=== PATIENT | female | born 1950 | race Caucasian/White ===

== ENCOUNTER 2023-08-20 09:39 | Outpatient (OUT) | payer OTHER, SELFPAY ==
[2023-08-20 10:02] LABS: Hematocrit 47.4 % (36.0-48.0); Hemoglobin 14.8 g/dL (12.0-16.0); Mean Corpuscular HGB Conc 31.2 g/dL (29.9-35.2); Mean Corpuscular Hemoglobin 27.3 pg (26.7-34.0); Mean Corpuscular Volume 87.3 fL (81.0-99.0); Platelet Count 222 10^3/uL (150-450); Red Blood Count 5.43 10^6/uL (4.20-5.40); Red Cell Distribution Width 14.8 % (11.0-15.0); White Blood Count 6.7 10^3/uL (4.0-11.0)
[2023-08-20 10:21] LABS: Bilirubin Urine NEGATIVE (NEGATIVE); Blood Urine TRACE-I (NEGATIVE); Clarity Urine CLEAR (CLEAR); Color Urine LT. YELLOW (YELLOW); Glucose Urine UA >=1000 mg/dL (NEGATIVE); Ketones Urine NEGATIVE (NEGATIVE); Leukocyte Esterase Urine SMALL (NEGATIVE); Nitrite Urine NEGATIVE (NEGATIVE); Protein Urine NEGATIVE (NEG/TRACE); Urobilinogen Urine 0.2 EU/dL (0.2-1.0)
[2023-08-20 10:36] LABS: Bacteria Urine MODERATE #/HPF (NONE SEEN); Cast Seen? NONE SEEN #/LPF (NONE SEEN); Crystals Seen? None Seen #/HPF (None Seen); Mucus Urine NONE SEEN (NONE SEEN); Squamous Epithelial Cell Urine MODERATE #/LPF (NONE/RARE)
[2023-08-20 10:40] LABS: Albumin Level 3.8 g/dL (3.4-5.0); Anion Gap 10.4; BUN Creatinine Ratio 21.7; Calcium 9.1 mg/dL (8.5-10.1); Carbon Dioxide 30.4 mmol/L (21.0-32.0); Chloride 98 mmol/L (98-107); Estimated GFR (African America >60 (>=60); Estimated GFR (Non-African Ame >60 (>=60); Glucose 168 mg/dL (74-106); Magnesium 2.1 mg/dL (1.8-2.4); Potassium 3.8 mmol/L (3.5-5.1); Sodium 135 mmol/L (136-145); Uric Acid 5.2 mg/dL (2.6-6.0)
[2023-08-20 11:03] LABS: Protein Creatinine Ratio Urine 0.16; Total Protein Urine Random 12.8 mg/dL (<=11.9)
[2023-08-21 14:10] LABS: PTH, Intact 29 pg/mL (15-65)
== END 2023-08-20 09:40 | disposition home or self-care (01) ==
LOC: LAB 09:43
PROVIDERS: PCP Family Medicine; Visit Provider Internal Medicine
DX: E11.22 Type 2 diabetes mellitus with diabetic chronic kidney disease (principal); N18.30 Chronic kidney disease, stage 3 unspecified; I12.9 Hypertensive chronic kidney disease with stage 1 through stage 4 chronic kidney disease, or unspecified chronic kidney disease; E55.9 Vitamin D deficiency, unspecified; R31.9 Hematuria, unspecified; E79.0 Hyperuricemia without signs of inflammatory arthritis and tophaceous disease
CPT/HCPCS: 36415; 80069; 81001; 82306; 82570; 83735; 83970; 84156; 84550; 85027

== ENCOUNTER 2024-02-07 09:21 | Outpatient (OUT) | payer OTHER, SELFPAY ==
--- OUTSIDE RECORDS SUMMARY | 2024-02-07 09:45 | XMS_ITS | CCD ---
Author Organization [facility] Care Team Providers Care Route Returner Name Role Phone Ronald, Julien Unavailable Jignesh Sargent Unavailable MD Wendy Chinchilla Primary Care Provider [phone] MD Jignesh Sargent Attending Provider [phone] RONALD, JULIEN Attending Unavailable RONALD, JULIEN Consulting Unavailable RONALD, JULIEN Admitting Unavailable RENÉE, DR THOMPSON Primary Care Unavailable JIGNESH SARGENT Consulting Unavailable RENÉE, DR THOMPSON Primary Care Unavailable MISC, DR FOWLER Attending Unavailable MISC, DR FOWLER Admitting Unavailable RONALD, JULIEN Attending Unavailable RONALD, JULIEN Consulting Unavailable RONALD, JULIEN Admitting Unavailable RENÉE, DR THOMPSON Primary Care Unavailable Unavailable Primary Care Provider UnavailWendy Monae MD Unavailable Wendy Chinchilla MD Primary Care Provider ISRAEL LOPEZ Attending Unavailable ELICIA REDD Referring Unavailable ELICIA REDD Attending Unavailable ESTER BLANCA Attending Unavailable ELICIA REDD Referring Unavailable REBECA HERRERA Attending Unavailable REBECA HERRERA Referring Unavailable JOHN HIGGINS Attending Unavailable JOHN HIGGINS Referring Unavailable JOHN HIGGINS Referring Unavailable MORENA GILLIS Attending Unavailable JOHN HIGGINS Referring Unavailable JACKY CLINE Attending Unavailable JOHN HIGGINS Referring Unavailable VAISHALI HENDRICKS Attending Unavailable JOHN HIGGINS Referring Unavailable JACKY CLINE Attending Unavailable JOHN HIGGINS Referring Unavailable JACKY CLINE Attending Unavailable JOHN HIGGINS Referring Unavailable JACKY CLINE Attending Unavailable JOHN HIGGINS Referring Unavailable INNA KOO Attending Unavailable JACKY CLINE Attending Unavailable SIERRA BLANCA, JOHN العلي Referring Unavailable JACKY CLINE Attending Unavailable KEATON, JOHN العلي Referring Unavailable JACKY CLINE Attending Unavailable KEATON, JOHN العلي Referring Unavailable JACKY CLINE Attending Unavailable JOHN HIGGINS Referring Unavailable MORENA GILLIS Attending Unavailable KEATON, JOHN العلي Referring Unavailable JOHN HIGGINS Attending Unavailable WENDY CHINCHILLA Attending Unavailable WENDY CHINCHILLA Attending Unavailable INNA KOO Attending Unavailable MD Wendy Tomlinson Primary Care Pr ovider YAQUELIN Hernandez Attending Provider Fibroscan, Temporary Attending Provider Unavaila Wendy Bustillo Primary Care Un available Mt Hernandez Admitting Unavailable Mt Hernandez Attending Wendy Taylor Primary Care Un available Mt Hernandez Admitting Unavailable Mt Hernandez Attending Unavailable Allergies Allergy Classification Reported Allergen(s) Allergy Type Date of Onset Reaction(s) Facility (5 sources) Wound Dressing Adhesive Drug Intolerance 7 Rash [facility] Medications Current Medications Medication Drug Class(es) Dates Sig (Normalized) Sig (Original) amoxicillin 500 mg oral tablet (5 sources) Penicillin-class Antibacterial Start: 10-09-2023 take 4 tablets by mouth once at mealtime amoxicillin (Amoxil) 500 MG tablet Indications: History of joint replacement, unspecified joint 4 tabs PO once 30-60 mins before procedure with food 4 tablet 3 10/09/2023 Active aspirin 81 mg chewable tablet (7 sources) Platelet Aggregation Inhibitor, Nonsteroidal Anti-inflammatory Drug take 1 tablet by mouth every twenty-four hours Aspirin 81 MG 1 tablet Orally Once a day Active atorvastatin 10 mg oral tablet (10 sources) HMG-CoA Reductase Inhibitor Start: 11-12-2023 take 1 tablet by mouth once daily atorvastatin (Lipitor) 10 MG tablet Indications: Mixed hyperlipidemia (CMS/HCC) take 1 tablet by mouth once daily 100 tablet 1 11/12/2023 Active Start: 10-17-2022 atorvastatin ( Lipitor) 10 MG tablet take 1 tablet by sunni th every twenty-four hours Atorvastatin Calcium 10 MG 1 tablet Orally Once a day Active Comment on above: Take by mouth every 24 hours. Blood Glucose Monitoring Suppl ([employer]zeuch Verio Reflect) w/Device kit (5 sources) Start: 3 Blood Glucose Monitoring Suppl ([employer] Verio Reflect) w/Device kit 24 hr buPROPion hydrochloride 150 mg extended release oral tablet (1 source) Aminoketone take 1 tablet by mouth every twenty-four hours buPROPion HCl ER (XL) 150 MG 1 tablet in the morning Orally Once a day Active Calcium 4380-0225 MG-UNIT (4 sources) take 1 tablet by mouth once daily Calcium 8330-0774 MG-UNIT 1 tablet Orally Once a day Active calcium carbonate 1500 mg oral tablet (5 sources) calcium carbonat e 1500 (600 Ca) MG tablet every 12 (twelve) hours. 0 Active citalopram 20 mg oral tablet (3 sources) Serotonin Reuptake Inhibitor take 1 tablet by mouth every twenty-four hours Citalopram Hydrobromide 20 MG 1 tablet Orally Once a day Active Cranberry preparation (15 sources) Non-Standardized Food Allergenic Extract, Non-Standardized Plant Allergenic Extract Cranberry 425 MG capsule take 1 capsule by mouth once martín ly Cranberry 1000 MG 1 CAPSULE Orally once a day Active Cranberry 400 mg cap Take 400 mg by mouth. 0 Active take 2 capsules by mouth once da yana Cranberry 425 MG 2 Capsule Orally once a day Active Comment on above: Take 400 mg by mouth . dapagliflozin 10 mg oral tablet (10 sources) Sodium-Glucose Cotransporter 2 Inhibitor Start: 11-20-19 24 take 1 tablet by mouth in the morning dapagliflozin (Farxiga) 10 MG Indications: Type 2 diabetes mellitus without complication, without long-term current use of insulin (CMS/HCC) Take 1 tablet (10 mg) by mouth in the morning. 90 tablet 0 11/20/2023 Active Start: 05-02-2023 End: 11-21-2023 take 1 tablet by mouth in the morning dapagliflozin (Farxiga) 10 MG Indications: Type 2 diabetes mellitus without complication, without long-term current use of insulin (CMS/HCC) Take 1 tablet (10 mg) by mouth in the morning. 14 tablet 0 08/23/2023 11/19/2023 Discontinued (Reorder) fluconazole 150 mg oral tablet (5 sources) Azole Antifungal Start: 10-16-2023 fluconazole (Diflucan) 150 MG tablet furosemide 20 mg oral tablet (15 sources) Loop Diuretic Start: 07-26-2017 furosemide (Lasix) 20 MG tablet Indications: Primary hypertension (CMS/HCC) TAKE 1 TABLET ONCE DAILY 100 tablet 1 04/25/2023 Active Hair Skin & Nails Advanced - (1 source) Hair Skin & Nail s Advanced - as directed Orally Active C-Sawxnjmttwxx-Ejwi e-B12-B6 (Metanx) 3-90.314-2-35 MG capsule (5 sources) Start: 08-17-2023 F-Kyhbnvmapksc-Uhppa -B12-B6 (Metanx) 3-90.314-2-35 MG capsule Indications: Diabetic polyneuropathy associated with type 2 diabetes mellitus (CMS/HCC) TAKE 1 CAPSULE BY MOUTH TWO TIMES A DAY DIRECTED 180 capsule 3 08/17/2023 Active lisinopril 2.5 mg oral tablet (10 sources) Angiotensin Converting Enzyme Inhibitor Start: 08-14-2022 take 1 tablet by mouth every twenty-four hours Lisinopril 2.5 MG 1 tablet Orally Once a day for 90 days Aug, Active Metanx 3-90.314-2-35 MG (1 source) Metanx 3-90.314- 2-35 MG as directed Orally TWICE A DAY Active metFORMIN hydrochloride 500 mg oral tablet (12 sources) Biguanide Start: 10-19-2023 take 1 tablet by mouth in the morning metFORMIN (Glucophage) 500 MG tablet Indications: Type 2 diabetes mellitus with stage 2 chronic kidney disease, without long-term current use of insulin (CMS/HCC) Take 1 tablet (500 mg) by mouth in the morning and 1 tablet (500 mg) before bedtime. 180 tablet 0 10/19/2023 Active Start: 08-04-2023 metFORMIN (GLU COPHAGE) 500 mg tablet 24 hr metoprolol succinate 25 mg extended release oral tablet (7 sources) beta-Adrenergic Sarmad take 1 tablet by mouth every twenty-four hours Metoprolol Succinate ER 25 MG 1 tablet Orally Once a day Active Multiple Vitamins-Minerals (Womens Multi Vitamin & Mineral) tablet (5 sources) Multiple Vitamins-Minerals (Womens Multi Vitamin & Mineral) tablet Multivitamin preparation (6 sources) Multivitamin - Orally Active [place] 3 (4 sources) [place] 3 Active 24 hr oxybutynin chloride 15 mg extended release oral tablet (9 sources) Cholinergic Muscarinic Antagonist Start: 023 take 1 tablet by mouth once daily oxybutynin XL (Ditropan-XL) 15 MG 24 hr tablet Indications: Urgency of urination Take 1 tablet by mouth once a day 90 tablet 3 08/21/2023 Active Start: 08-04-2023 oxybutynin ER (DITROPAN XL) 10 mg 24 hr tablet take 1 tablet by sunni th every twenty-four hours oxyBUTYnin Chloride ER 10 MG 1 tablet Orally Once a day Active triamcinolone acetonide 0.001 mg/mg oral paste (1 source) Corticosteroid Start: 08-10-2023 End: 08-24-2023 triamcinolone (KENALOG IN ORABASE) 0.1 % paste 1 Application by DENTAL route two times a day for 14 days. 5 g 1 08/10/2023 08/24/2023 Active Comment on above: 1 Application by DEN VAL route two times a day for 14 days. Vitamin E 400 UNIT (6 sources) take 1 capsule by mouth once daily Vitamin E 400 UNIT 1 capsule Orally Once a day Active Womens Multivitamin - (4 sources) Womens Multivitamin - as directed Orally Active Completed/Discontinued Medications Medication Drug Class(es) Dates Sig (Normalized) Sig (Original) calcium citrate 250 mg / ergocalciferol 100 mg oral tablet (2 sources) Provitamin D2 Compound take 1 tablet by mouth once daily in the morning Calcium Citrate-Vitamin D2 250 mg-2.5 mcg (100 unit) tab Take 1 tablet by mouth every morning. 0 Active Comment on above: Take 1 tablet by sunni th every morning. Docosahexaenoate (2 sources) DOCOSAHEXAENOIC ACID ORAL Take by mouth as directed. 0 Active Comment on above: Take by mouth as dir ected. fluticasone propionate 0.05 mg/actuat metered dose nasal spray (8 sources) Corticosteroid Start: 11-04-2022 fluticasone (FLONASE) 50 mcg/actuation nasal spray 1 (one) time each day at the same time. 0 11/04/2022 Active fluticasone (Bigg nase) 50 MCG/ACT nasal spray 1 (one) time each day at the same time. 0 Active take 1 spray(s) nasal route once daily Flonase Allergy Relief 50 MCG/ACT 1 spray in each nostril Nasally Once a day Active Comment on above: 1 (one) time each da y at the same time. HAIR, SKIN AND NAILS, BIOTIN, ORAL (2 sources) HAIR, SKIN AND N AILS, BIOTIN, ORAL Take by mouth as directed. 0 Active Comment on above: Take by mouth as dir ected. mormrgnlp-[id number]-nnW06-algal oil (METANX, ALGAL OIL,) 3 mg-35 mg-2 mg -90.314 mg cap (2 sources) ohzhjwkhj-I6-jxH 12-alga l oil (METANX, ALGAL OIL,) 3 mg-35 mg-2 mg -90.314 mg cap Take by mouth as directed. 0 Active Comment on above: Take by mouth as dir ected. levothyroxine sodium 0.1 mg oral tablet (15 sources) l-Thyroxine Start: 07-13-2023 SYNTHROID 100 mcg tablet take 1 tablet by sunni th every twenty-four hours Levothyroxine Sodium 100 MCG 1 tablet Orally Once a day Active meloxicam 15 mg oral tablet (4 sources) Nonsteroidal Anti-inflammatory Drug take 1 tablet by mouth once daily as needed Meloxicam 15 MG 1 tablet Orally Once a day PRN ONLY Not-Taking Multivitamin capsule (2 sources) take 1 capsule by mouth once daily in the morning Multivitamin capsule Take 1 capsule by mouth every morning. 0 Active Comment on above: Take 1 capsule by mo uth every morning. Problems Active Problems Problem Classification Problem Date Documented Date Episodic/Chronic Adjustment disorders (5 sources) Grief finding; Translations: [Adjustment disorder with depressed mood] Onset: 3 04-27-2023 Chronic Anxiety disorders (5 sources) Anxiety; Translations: [Anxiety disorder, unspecified] Onset: 3 04-27-2023 Chronic Chronic kidney disease (20 sources) Chronic kidney disease stage 3; Translations: [Chronic kidney disease, stage 3 (moderate)] Onset: 1 Resolved: 1 Chronic Coronary atherosclerosis and other heart disease (5 sources) Atypical angina; Translations: [Atypical angina] Onset: 3 04-27-2023 Chronic Diabetes mellitus with complications (20 sources) Type 2 diabetes mellitus well controlled; Translations: [Type 2 diabetes mellitus with hyperglycemia] Onset: 3 Chronic Diabetes mellitus without complication (8 sources) Type 2 diabetes mellitus; Translations: [Type 2 diabetes mellitus without complications] Onset: 3 08-10-2023 Chronic Diseases of mouth; excluding dental (2 sources) Oral lesion; Translations: [Unspecified lesions of oral mucosa] Onset: 4 08-10-2023 Episodic Disorders of lipid metabolism (7 sources) Mixed hyperlipidemia; Translations: [Mixed hyperlipidemia] Onset: 3 08-10-2023 Chronic Esophageal disorders (10 sources) Gastroesophageal reflux disease without esophagitis; Translations: [Gastro-esophageal reflux disease without esophagitis] Onset: 3 04-27-2023 Chronic Essential hypertension (7 sources) Hypertensive disorder; Translations: [Essential (primary) hypertension] Onset: 3 08-10-2023 Chronic Genitourinary symptoms and ill-defined conditions (13 sources) Urinary incontinence; Translations: [Unspecified urinary incontinence] Onset: 3 04-27-2023 Chronic Hepatitis (6 sources) Nonalcoholic steatohepatitis; Translations: [Nonalcoholic steatohepatitis (CABELLO)] Onset: 4 Chronic Hypertension with complications and secondary hypertension (20 sources) Chronic kidney disease due to hypertension; Translations: [Hypertensive chronic kidney disease with stage 1 through stage 4 chronic kidney disease, or unspecified chronic kidney disease] Onset: 1 Resolved: 2 Chronic Menopausal disorders (15 sources) Disorder associated with menstruation AND/OR menopause; Translations: [Unspecified menopausal and perimenopausal disorder] Onset: 3 04-27-2023 Chronic Mood disorders (5 sources) Mild major depression, single episode; Translations: [Major depressive disorder, single episode, mild] Onset: 3 04-27-2023 Chronic Nutritional deficiencies (18 sources) Vitamin D deficiency; Translations: [Vitamin D deficiency, unspecified] Onset: 1 Resolved: 2 Chronic Osteoarthritis (5 sources) Osteoarthritis of knee; Translations: [Osteoarthritis of knee, unspecified] Onset: 3 04-27-2023 Chronic Other acquired deformities (5 sources) Joint contracture of the ankle and foot; Translations: [Contracture, unspecified ankle] Onset: 3 05-03-2023 Chronic Other connective tissue disease (5 sources) Artificial knee joint present; Translations: [Presence of left artificial knee joint] Onset: 3 04-27-2023 Chronic Other connective tissue disease (5 sources) History of total knee arthroplasty; Translations: [Presence of right artificial knee joint] Onset: 3 04-27-2023 Chronic Other diseases of bladder and urethra (7 sources) Overactive bladder; Translations: [Overactive bladder] Onset: 3 08-10-2023 Chronic Other diseases of kidney and ureters (7 sources) Secondary hyperparathyroidism; Translations: [Secondary hyperparathyroidism of renal origin] Chronic Other diseases of kidney and ureters (1 source) Secondary hyperparathyroidism of renal origin Onset: 2 Resolved: 2 Chronic Other ear and sense organ disorders (2 sources) Hearing loss; Translations: [Other specified hearing loss, unspecified ear] 06-14-2023 Chronic Other ear and sense organ disorders (3 sources) 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; Translations: [Sensorineural hearing loss, bilateral] Onset: 3 08-10-2023 Chronic Other ear and sense organ disorders (5 sources) Chronic non-infective otitis externa; Translations: [Other otitis externa, bilateral] Onset: 3 04-27-2023 Chronic Other ear and sense organ disorders (5 sources) Decreased hearing ; Translations: [Unspecified hearing loss, bilateral] Onset: 3 04-27-2023 Chronic Other ear and sense organ disorders (5 sources) Sensorineural hearing loss, bilateral; Translations: [Sensorineural hearing loss, bilateral] Onset: 3 04-27-2023 Chronic Other liver diseases (7 sources) Steatosis of liver; Translations: [Fatty (change of) liver, not elsewhere classified] Onset: 3 04-27-2023 Chronic Other liver diseases (2 sources) Fatty (change of) liver, not elsewhere classified; Translations: [Fatty (change of) liver, not elsewhere classified] Onset: 4 Chronic Other nervous system disorders (5 sources) Carpal tunnel syndrome of left wrist; Translations: [Carpal tunnel syndrome, left upper limb] Onset: 3 04-27-2023 Chronic Other nervous system disorders (5 sources) Difficulty walking; Translations: [Difficulty in walking, not elsewhere classified] Onset: 3 04-27-2023 Chronic Other nervous system disorders (5 sources) Chronic pain; Translations: [Other chronic pain] Onset: 3 04-27-2023 Chronic Other non-traumatic joint disorders (5 sources) Derangement of right shoulder joint; Translations: [Other specific joint derangements of right shoulder, not elsewhere classified] Onset: 3 04-27-2023 Chronic Other nutritional; endocrine; and metabolic disorders (8 sources) Obese class I; Translations: [Body mass index (BMI) 33.0-33.9, adult] Chronic Other nutritional; endocrine; and metabolic disorders (5 sources) Morbid obesity; Translations: [Morbid (severe) obesity due to excess calories] Onset: 3 04-27-2023 Chronic Other nutritional; endocrine; and metabolic disorders (2 sources) Hyperuricemia without signs of inflammatory arthritis and tophaceous disease Episodic Other upper respiratory disease (5 sources) Allergic rhinitis due to pollen; Translations: [Allergic rhinitis due to pollen] Onset: 3 04-27-2023 Chronic Prolapse of female genital organs (10 sources) Midline cystocele; Translations: [Cystocele, midline] Onset: 3 04-27-2023 Chronic Residual codes; unclassified (5 sources) Obstructive sleep apnea syndrome; Translations: [Obstructive sleep apnea (adult) (pediatric)] Onset: 3 04-27-2023 Chronic Spondylosis; intervertebral disc disorders; other back problems (11 sources) Degeneration of lumbar intervertebral disc; Translations: [Other intervertebral disc degeneration, lumbar region] Onset: 3 11-09-2023 Chronic Thyroid disorders (7 sources) Hypothyroidism; Translations: [Hypothyroidism, unspecified] Onset: 3 08-10-2023 Chronic Unclassified (1 source) CHRN KIDNEY DISEASE STG 3 UNSP; Translations: [CHRN KIDNEY DISEASE STG 3 UNSP] Onset: Past or Other Problems Problem Classification Problem Date Documented Da te Episodic/Chronic Chronic kidney disease (10 sources) Chronic kidney disease; Translations: [Chronic kidney disease, stage III (moderate)] Onset: 11-23-2021 Resolved: 02-13-2022 Diabetes mellitus without complication (3 sources) Hyperglycemia, unspecified; Translations: [HYPERGLYCEMIA UNSPECIFIED] Onset: 08-10-2021 Resolved: 02-13-2022 Episodic Gastritis and duodenitis (5 sources) Gastritis; Translations: [Gastritis, unspecified, without bleeding] Onset: 04-27-2023 04-27-2023 Episodic Genitourinary symptoms and ill-defined conditions (10 sources) Hematuria, unspecified; Translations: [Urinary system finding] Onset: 08-10-2021 Resolved: 02-13-2022 Episodic Other connective tissue disease (5 sources) Pain of right calf; Translations: [Pain in right lower leg] Onset: 04-27-2023 04-27-2023 Episodic Other connective tissue disease (5 sources) Recurrent falls ; Translations: [Repeated falls] Onset: 04-27-2023 04-27-2023 Episodic Other ear and sense organ disorders (5 sources) Ear pressure sensation; Translations: [Other specified disorders of ear, bilateral] Onset: 04-27-2023 04-27-2023 Episodic Other liver diseases (5 sources) Abnormal levels of other serum enzymes; Translations: [ABNORMAL LEVELS OTHER SERUM ENZYMES] Onset: 2022 Episodic Other nervous system disorders (5 sources) Abnormal gait; Translations: [Unsteadiness on feet] Onset: 04-27-2023 04-27-2023 Episodic Other non-traumatic joint disorders (5 sources) Pain in left knee; Translations: [Pain in joint, lower leg] Onset: 04-27-2023 04-27-2023 Episodic Other non-traumatic joint disorders (5 sources) Anterior knee pain; Translations: [Pain in right knee] Onset: 04-27-2023 04-27-2023 Episodic Other screening for suspected conditions (not mental disorders or infectious disease) (5 sources) Coronary artery finding; Translations: [Abnormal findings on diagnostic imaging of heart and coronary circulation] Onset: 06-04-2023 06-05-2023 Episodic Other upper respiratory disease (5 sources) Nasal discharge; Translations: [Other specified disorders of nose and nasal sinuses] Onset: 04-27-2023 04-27-2023 Episodic Otitis media and related conditions (5 sources) Dysfunction of bilateral eustachian tubes; Translations: [Unspecified Eustachian tube disorder, bilateral] Onset: 04-27-2023 04-27-2023 Episodic Spondylosis; intervertebral disc disorders; other back problems (5 sources) Pain in thoracic spine; Translations: [Pain in thoracic spine] Onset: 04-27-2023 04-27-2023 Episodic Results Test Name Value Interpretation Reference Range Facility Alanine aminotransferase [En zymatic activity/volume] in Serum or PlasmaOrdered By: Mt Hernandez on 12-27-2023 ALT [Catalytic activity/Vol] 53 U/L 7-52 [facility] Albumin [Mass/volume] in Ser um or Plasma by Bromocresol green (BCG) dye binding methoOrdered By: Mt Hernandez on 12-27-2023 Albumin BCG dye [Mass/Vol] 4.7 g/dL 3.5-5.7 [facility] Alkaline phosphatase [Enzyma tic activity/volume] in Serum or PlasmaOrdered By: Mt Hernandez on 12-27-2023 ALP [Catalytic activity/Vol] 65 U/L 34-104 [facility] Aspartate aminotransferase [ Enzymatic activity/volume] in Serum or PlasmaOrdered By: Mt Hernandez on 12-27-2023 AST [Catalytic activity/Vol] 45 U/L 13-39 [facility] Basophils Auto (Bld) [#/Vol] Ordered By: Mt Hernandez on 12-27-2023 Basophils (Bld) [#/Vol] 0.1 10*3/uL 0.0-0.2 [facility] Basophils/100 WBC Auto (Bld) Ordered By: Mt Hernandez on 12-27-2023 Basophils/100 WBC (Bld) 0.8 % . F [facility] Bilirubin.total [Mass/volume ] in Serum or PlasmaOrdered By: Mt Hernandez on 12-27-2023 Bilirubin [Mass/Vol] 0.4 mg/dL 0.3-1.0 [facility] Calcium [Mass/volume] in Ser um or PlasmaOrdered By: Mt Hernandez on 12-27-2023 Calcium [Mass/Vol] 10.2 mg/dL 8.6-10.3 [facility] Carbon dioxide, total [Moles /volume] in Serum or PlasmaOrdered By: Mt Hernandez on 12-27-2023 CO2 [Moles/Vol] 32.2 mmol/L 21.0-31.0 [facility] Chloride [Moles/volume] in S isabella or PlasmaOrdered By: Mt Hernandez on 12-27-2023 Chloride [Moles/Vol] 97 mmol/L 98-107 [facility] Complete Blood Count Auto Di ffon 12-27-2023 Basophils (Bld) [#/Vol] 0.1 10*3/uL Normal 0.0-0.2 [facility] Comment on above: Result Comment: PERF ORMED BY: [place] [address] PATHOLOGIST CREDIT CONTROL ADMINISTRATOR HARI BENDER M.D. Performed By: #### C MP, CBC #### [address] Basophils/100 WBC (Bld) 0.8 % Normal . Raffi hernandez [facility] Comment on above: Performed By: #### C MP, CBC #### [place] [address] [place] Eosinophils (Bld) [#/Vol] 0.2 10*3/uL Normal 0.0-0.45 [facility] Comment on above: Performed By: #### C MP, CBC #### [place] [address] [place] Eosinophils/100 WBC (Bld) 1.9 % Normal . [facility] Comment on above: Performed By: #### C MP, CBC #### [address] Erythrocyte distribution width (RBC) [Ratio] 14.4 % Normal 11.9-15.3 [facility] Comment on above: Performed By: #### C MP, CBC #### [place] [id number] [place] Hematocrit (Bld) [Volume fraction] 45.7 % Normal 34.0-46.4 [facility] Comment on above: Performed By: #### C MP, CBC #### [address] Hemoglobin (Bld) [Mass/Vol] 15.1 g/dL Normal 11.8-15.4 [facility] Comment on above: Performed By: #### C MP, CBC #### [address] Lymphocytes (Bld) [#/Vol] 3.1 10*3/uL Normal 1.00-4.8 [facility] Comment on above: Performed By: #### C MP, CBC #### [address] Lymphocytes/100 WBC (Bld) 30.7 % Normal . [facility] Comment on above: Performed By: #### C MP, CBC #### [address] MCH (RBC) [Entitic mass] 28.1 pg Normal 24.7-34.3 [facility] Comment on above: Performed By: #### C MP, CBC #### [address] MCV (RBC) [Entitic vol] 84.8 fL Normal 80-100 [facility] Comment on above: Performed By: #### C MP, CBC #### [address] Mean Corpuscular HGB Conc 33.1 g/dL Normal 32.0-35.0 [facility] Comment on above: Performed By: #### C MP, CBC #### [address] Monocytes (Bld) [#/Vol] 0.8 10*3/uL Normal 0.0-0.8 [facility] Comment on above: Performed By: #### C MP, CBC #### [place] [id number] [place] Monocytes/100 WBC (Bld) 7.9 % Normal . [facility] Comment on above: Performed By: #### C MP, CBC #### [address] Neutrophils (Bld) [#/Vol] 6.0 10*3/uL Normal 1.8-7.7 [facility] Comment on above: Performed By: #### C MP, CBC #### [address] Neutrophils/100 WBC (Bld) 58.7 % Normal . [facility] Comment on above: Performed By: #### C MP, CBC #### [address] NRBC% 0.2 /100{WBC} Normal 0-0.5 [facility] Comment on above: Performed By: #### C MP, CBC #### [address] Platelet mean volume (Bld) [Entitic vol] 7.8 fL Normal 6.3-10.7 [facility] Comment on above: Performed By: #### C MP, CBC #### [address] Platelets (Bld) [#/Vol] 262 10*3/uL Normal 150-450 [facility] Comment on above: Performed By: #### C MP, CBC #### [address] RBC (Bld) [#/Vol] 5.39 10*6/uL High 3.60-5.00 [facility] Comment on above: Performed By: #### C MP, CBC #### [address] WBC (Bld) [#/Vol] 10.2 10*3/uL Normal 3.8-11.6 [facility] Comment on above: Performed By: #### C MP, CBC #### [place] [id number] [place] Comprehensive Metabolic Pane petr 12-27-2023 Albumin [Mass/Vol] 4.7 g/dL Normal 3.5-5.7 [facility] Comment on above: Performed By: #### C MP, CBC #### [address] Albumin/Globulin [Mass ratio] 1.8 {ratio} Normal [facility] Comment on above: Performed By: #### C MP, CBC #### [address] ALP [Catalytic activity/Vol] 65 U/L Normal 34-104 [facility] Comment on above: Result Comment: PERF ORMED BY: [place] [address] PATHOLOGIST CREDIT CONTROL ADMINISTRATOR HARI BENDER M.D. Performed By: #### C MP, CBC #### [address] ALT [Catalytic activity/Vol] 53 U/L High 7-52 [facility] Comment on above: Performed By: #### C MP, CBC #### [address] Anion gap [Moles/Vol] 13.0 mmol/L Normal 6.0-15.0 [facility] Comment on above: Performed By: #### C MP, CBC #### [address] AST [Catalytic activity/Vol] 45 U/L High 13-39 [facility] Comment on above: Performed By: #### C MP, CBC #### [place] [address] [place] Bilirubin [Mass/Vol] 0.4 mg/dL Normal 0.3-1.0 [facility] Comment on above: Performed By: #### C MP, CBC #### [address] Calcium [Mass/Vol] 10.2 mg/dL Normal 8.6-10.3 [facility] Comment on above: Performed By: #### C MP, CBC #### [facility] [address] [place] [address] [place] Chloride [Moles/Vol] 97 mmol/L Low 98-107 [facility] Comment on above: Performed By: #### C MP, CBC #### [facility] [address] CO2 [Moles/Vol] 32.2 mmol/L High 21.0-31.0 [facility] Comment on above: Performed By: #### C MP, CBC #### [address] Creatinine [Mass/Vol] 1.18 mg/dL Normal 0.60-1.20 [facility] Comment on above: Performed By: #### C MP, CBC #### [place] [address] [place] GFR/1.73 sq M.predicted MDRD (S/P/Bld) [Vol rate/Area] 49.381 mL/min/{1.73_m2} Normal [facility] Comment on above: Performed By: #### C MP, CBC #### [address] Globulin (S) [Mass/Vol] 2.6 g/dL Normal [facility] Comment on above: Performed By: #### C MP, CBC #### [address] Glucose [Mass/Vol] 131 mg/dL High 70-100 [facility] Comment on above: Result Comment: [facility] Glucose Reference Range is dependent on time and content of last meal. Glucose of more than 200 mg/dL in a nonstressed, ambulatory subject supports the diagnosis of Diabetes Mellitus. ADA recommended reference range Performed By: #### C MP, CBC #### [address] Potassium [Moles/Vol] 4.2 mmol/L Normal 3.5-5.1 [facility] Comment on above: Performed By: #### C MP, CBC #### [facility] [address] [place] [address] [place] Protein [Mass/Vol] 7.3 g/dL Normal 6.4-8.9 [facility] Comment on above: Performed By: #### C MP, CBC #### [facility] [address] Sodium [Moles/Vol] 138 mmol/L Normal 136-145 [facility] Comment on above: Performed By: #### C MP, CBC #### [facility] [address] [place] [address] [place] Urea nitrogen [Mass/Vol] 22 mg/dL Normal 7-25 [facility] Comment on above: Performed By: #### C MP, CBC #### [facility] [address] [place] [address] [place] Creatinine [Mass/volume] in Serum or PlasmaOrdered By: Mt Hernandez on 12-27-2023 Creatinine [Mass/Vol] 1.18 mg/dL 0.60-1.20 [facility] Eosinophils Auto (Bld) [#/Vo l]Ordered By: Mt Hernandez on 12-27-2023 Eosinophils (Bld) [#/Vol] 0.2 10*3/uL 0.0-0.45 [facility] Eosinophils/100 WBC Auto (Bl d)Ordered By: Mt Hernandez on 12-27-2023 Eosinophils/100 WBC (Bld) 1.9 % . [facility] Erythrocyte distribution wid th Auto (RBC) [Ratio]Ordered By: Mt Hernandez on 12-27-2023 Erythrocyte distribution width (RBC) [Ratio] 14.4 % 11.9-15.3 [facility] Globulin Calc (S) [Mass/Vol] Ordered By: Mt Hernandez on 12-27-2023 Globulin (S) [Mass/Vol] 2.6 g/dL [facility] Glucose [Mass/volume] in Ser um or PlasmaOrdered By: Mt Hernandez on 12-27-2023 Glucose [Mass/Vol] 131 mg/dL 70-100 [facility] Comment on above: ADA recommended refe rence rangeRandom Glucose Reference Range is dependent on time and content of last meal. Glucose of more than 200 mg/dL in a nonstressed, ambulatory subject supports the diagnosis of Diabetes Mellitus. Hematocrit Auto (Bld) [Volum e fraction]Ordered By: Mt Hernandez on 12-27-2023 Hematocrit (Bld) [Volume fraction] 45.7 % 34.0-46.4 [facility] Hemoglobin [Mass/volume] in BloodOrdered By: Mt Hernandez on 12-27-2023 Hemoglobin (Bld) [Mass/Vol] 15.1 g/dL 11.8-15.4 [facility] Leukocytes [#/volume] correc tarun for nucleated erythrocytes in Blood by Automated counOrdered By: Mt Hernandez on 12-27-2023 WBC corrected for nucl RBC Auto (Bld) [#/Vol] 10.2 10*3/uL 3.8-11.6 [facility] Lymphocytes Auto (Bld) [#/Vo l]Ordered By: Mt Hernandez on 12-27-2023 Lymphocytes (Bld) [#/Vol] 3.1 10*3/uL 1.00-4.8 [facility] Lymphocytes/100 WBC Auto (Bl d)Ordered By: Mt Hernandez on 12-27-2023 Lymphocytes/100 WBC (Bld) 30.7 % . [facility] MCH Auto (RBC) [Entitic mass ]Ordered By: Mt Hernandez on 12-27-2023 MCH (RBC) [Entitic mass] 28.1 pg 24.7-34.3 [facility] MCHC Auto (RBC) [Mass/Vol]Or dered By: Mt Hernandez on 12-27-2023 MCHC (RBC) [Mass/Vol] 33.1 g/dL 32.0-35.0 [facility] MCV Auto (RBC) [Entitic vol] Ordered By: Mt Hernandez on 12-27-2023 MCV (RBC) [Entitic vol] 84.8 fL 80-100 [facility] Monocytes Auto (Bld) [#/Vol] Ordered By: Mt Hernandez on 12-27-2023 Monocytes (Bld) [#/Vol] 0.8 10*3/uL 0.0-0.8 [facility] Monocytes/100 WBC Auto (Bld) Ordered By: Mt Hernandez on 12-27-2023 Monocytes/100 WBC (Bld) 7.9 % . [facility] Neutrophils Auto (Bld) [#/Vo l]Ordered By: Mt Hernandez on 12-27-2023 Neutrophils (Bld) [#/Vol] 6.0 10*3/uL 1.8-7.7 [facility] Neutrophils/100 WBC Auto (Bl d)Ordered By: Mt Hernandez on 12-27-2023 Neutrophils/100 WBC (Bld) 58.7 % . [facility] No Panel InformationOrdered By: Mt Hernandez on 12-27-2023 Estimated GFR (CKD-EPI) 49.381 mL/Min [facility] Creatinine Clearance (Chem N/A [facility] Nucleated erythrocytes [Pres ence] in Blood by Automated countOrdered By: Mt Hernandez on 12-27-2023 Nucleated RBC Auto Ql (Bld) 0.2 /100{WBC} 0-0.5 [facility] Platelet mean volume Auto (B ld) [Entitic vol]Ordered By: Mt Hernandez on 12-27-2023 Platelet mean volume (Bld) [Entitic vol] 7.8 fL 6.3-10.7 [facility] Platelets Auto (Bld) [#/Vol] Ordered By: Mt Hernandez on 12-27-2023 Platelets (Bld) [#/Vol] 262 10*3/uL 150-450 [facility] Potassium [Moles/volume] in Serum or PlasmaOrdered By: Mt Hernandez on 12-27-2023 Potassium [Moles/Vol] 4.2 mmol/L 3.5-5.1 [facility] Protein [Mass/volume] in Ser um or PlasmaOrdered By: Mt Hernandez on 12-27-2023 Protein [Mass/Vol] 7.3 g/dL 6.4-8.9 [facility] RBC Auto (Bld) [#/Vol]Ordere d By: Mt Hernandez on 12-27-2023 RBC (Bld) [#/Vol] 5.39 10*6/uL 3.60-5.00 [facility] Serum or plasma albumin/glob ulin mass ratioOrdered By: Mt Hernandez on 12-27-2023 Albumin/Globulin [Mass ratio] 1.8 {ratio} [facility] Serum or plasma anion gap de terminationOrdered By: Mt Hernandez on 12-27-2023 Anion gap [Moles/Vol] 13.0 mmol/L 6.0-15.[address] [facility] Sodium [Moles/volume] in Ser um or PlasmaOrdered By: Mt Hernandez on 12-27-2023 Sodium [Moles/Vol] 138 mmol/L 136-145 [facility] Urea nitrogen [Mass/volume] in Serum or PlasmaOrdered By: Mt Hernandez on 12-27-2023 Urea nitrogen [Mass/Vol] 22 mg/dL 7-25 [facility] WBC Auto (Bld) [#/Vol]Ordere d By: Mt Hernandez on 12-27-2023 WBC (Bld) [#/Vol] 10.2 10*3/uL 3.8-11.6 [facility] CNOVon 11-12-2023 CNOV Office Visit (OTOL[facility]) ---- VIVIAN VIZCAINO ([id number]) 1950 F Date Time Provider Department 11/12/23 10:05 AM ISRAEL LOPEZ [facility] During your visit today, we recorded the following information about you: Israel Lopez MD 11/12/2023 10:31 AM Signed History: Vivian Vizcaino, a 73 year old female, presents for evaluation of L buccal spot noted by dentist 2-3 y ago. Does not appreciate. No pain or bleeding. Denies difficulty swallowing solids and liquids, throat irritation/swelling , pain with swallowing, hoarseness, shortness of breath, cough, hemoptysis, ear pain, throat clearing, throat phelgm, post-nasal drip, fever, chills, weight loss. No history of thyroid disease/surgery. The patient does not smoke. The patient does not drink alcohol. PAST MEDICAL HISTORY Diagnosis Date CKD (chronic kidney disease) stage 3, GFR 30-59 ml/min ([facility]) DM type 2 (diabetes mellitus, type 2) ([facility]) HTN (hypertension) Hypothyroidism Mixed hyperlipidemia Overactive bladder PSH: B knee PE: Alert; oriented; well-developed; no apparent distress. Normal voice; normal communication. Eyes: EOMI, pupils symmetric and reactive bilaterally. Nose: patent, normal mucosa, no congestion, no rhinorrhea. Oral cavity, oropharynx: Normal linea alba. No lesion. No ulcerative or mass lesions, tongue midline, palate elevates symmetrically, tongue base and floor of mouth soft. Neck: nontender, no lymphadenopathy or masses. Thyroid: no masses. Face: symmetric, sinuses nontender, skin without lesions. Salivary glands: normal size, nontender, no masses. Ears: EACs free of lesions. TMs clear and mobile. 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 Assessment/Plan: Reassured no apparent oral lesion. 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 F/up prn. Medical Decision Making: Problems: Low: Acute, uncomplicated illness or injury Risk: Minimal: Minimal risk from testing/treatment Medical Decision Making Level: 2 - Straightforward Referring Provider: ELICIA REDD [[id number]] Allergies As of Date: 11/12/2023 (No Known Allergies) Date Reviewed: 11/12/2023 Reviewed by: Azalia Antonio MA - Fully Assessed Reason for Visit: Consult [173] Visit Diagnosis:Oral lesion [K13.70] Order(s):CONSULT TO ENT [9008] Order #: [id number]: 1 Prescriptions as of 11/12/2023 - furosemide (LASIX) 20 mg tablet - FARXIGA 10 mg tablet - atorvastatin (LIPITOR) 10 mg tablet Take by mouth every 24 hours. - oxybutynin ER (DITROPAN XL) 10 mg 24 hr tablet - SYNTHROID 100 mcg tablet - metFORMIN (GLUCOPHAGE) 500 mg tablet - fluticasone (FLONASE) 50 mcg/actuation nasal spray 1 (one) time each day at the same time. - Cranberry 400 mg cap Take 400 mg by mouth. - Multivitamin capsule Take 1 capsule by mouth every morning. - DOCOSAHEXAENOIC ACID ORAL Take by mouth as directed. - Calcium Citrate-Vitamin D2 250 mg-2.5 mcg (100 unit) tab Take 1 tablet by mouth every morning. - HAIR, SKIN AND NAILS, BIOTIN, ORAL Take by mouth as directed. - [id number]- algal oil (METANX, ALGAL OIL,) 3 mg-35 mg-2 mg -90.314 mg cap Take by mouth as directed. Problem List As Of Date 11/12/2023 Noted Resolved CKD (chronic kidney disease) stage 3, GFR 30-59*08/10/2023 DM type 2 (diabetes mellitus, type 2) (HCC) [E1*08/10/2023 HTN (hypertension) [I10] 08/10/2023 Hypothyroidism [E03.9] 08/10/2023 Mixed hyperlipidemia [E78.2] 08/10/2023 Overactive bladder [N32.81] 08/10/2023 Bilateral high frequency sensorineural hearing *08/10/2023 Encounter Status:Closed by ISRAEL LOPEZ on 11/12/23 Normal [facility] BI MAMMOGRAM SCREENING TOMOS YNTHESIS BILATERALon 10-09-2023 BI MAMMOGRAM SCREENING TOMOSYNTHESIS BILATERAL This is a summary report. The complete report is available in the patient's medical record. If you cannot access the medical record, please contact the sending organization for a detailed fax or copy. EXAMINATION: BI MAMMOGRAM SCREENING TOMOSYNTHESIS BILATERAL CLINICAL HISTORY: screening COMPARISON: October 04, 2022 . RESULT: Digital mammography and 3D tomosynthesis of bilateral breasts was performed. There are scattered areas of fibroglandular density. Typically benign calcifications. Overall appearance stable. There is no suspicious mass, asymmetry, architectural distortion, or calcification. IMPRESSION: BIRADS 2 - Benign. Follow-up: Routine Screening Mamm . Board Certified Radiologists. Accredited by the ACR and FDA. MAMMOGRAPHY IS VERY IMPORTANT TO YOUR HEALTH. THE [employer] GUIDELINES RECOMMEND THAT WOMEN 40 YEARS OF AGE AND OLDER SHOULD HAVE A MAMMOGRAM EVERY YEAR. A REMINDER LETTER WILL BE SENT AT THE APPROPRIATE TIME. THIS FACILITY UTILIZES A REMINDER SYSTEM TO ENSURE ALL PATIENTS RECEIVE REMINDER NOTIFICATIONS AT THE APPROPRIATE TIME BASED ON THE RECOMMENDATIONS OF THIS EXAM. THIS INCLUDES REMINDERS FOR ROUTINE SCREENING MAMMOGRAMS, DIAGNOSTIC MAMMOGRAMS IN WHICH THE PATIENT IS ASKED TO RETURN FOR ADDITIONAL VIEWS, OR OTHER BREAST IMAGING INTERVENTIONS WHEN APPROPRIATE. THE PATIENT WILL BE PLACED IN THE APPROPRIATE REMINDER SYSTEM INCLUDING A REMINDER AT THE APPROPRIATE TIME FOR ANY PENDING ADDITIONAL VIEWS. TRANSCRIBED BY: ELECTRONICALLY SIGNED BY: Ravi Naranjo MD Normal Not Available Comment on above: Order Comment: Last mammogram 10-04-22 [facility]. Us or spot compression prn. Prefers [place] location. CNOVon 08-10-2023 CNOV Office Visit ([facility]) ---- VIVIAN VIZCAINO ([id number]) 1950 F Date Time Provider Department 08/10/23 8:50 AM ELICIA REDD [facility] During your visit today, we recorded the following information about you: Pulse Respiration 85/minute 17/minute Elicia Redd, NIGHT CLEANER.FOOT CASTER 08/10/2023 1:06 PM Signed Ms. Vizcaino is a 72 year old female who comes in for evaluation of hearing loss. She has had a question about her hearing in the past several years. She feels she has more difficulty with communication in noisy environments. She apparently has had a area of whitish lesion in the oral cavity on the left. She states that this was first noticed about 5 months ago by her dentist. They did take photographs of the area and advised her to monitor the area. She denies any ulceration or pain in the area. She denies any other significant oral symptoms. She denies any history of chewing tobacco use, smoking tobacco, or alcohol use. Hearing testing performed today revealed: IMPRESSIONS RIGHT EAR: Hearing within normal limits AND High Frequency Sensorineural Hearing Loss consistent with presbycusis LEFT EAR: Hearing within normal limits AND High Frequency Sensorineural Hearing Loss consistent with presbycusis AUDIOLOGIC EVALUATION Following is a brief interpretation of the obtained findings from the audiologic evaluation. Refer to the Auditory Test Record for complete audiometric results. The patient was counseled about the test findings and appropriate audiologic recommendations were made. SUMMARY: Audiogram can be viewed under Proc tab. OTOSCOPY RIGHT EAR: Otoscopic inspection revealed clear ear canal, Tympanic Membrane intact with an identifiable cone of light. LEFT EAR: Otoscopic inspection revealed clear ear canal, Tympanic Membrane intact with an identifiable cone of light. TYMPANOMETRY Description of procedure: This test is an objective evaluation of middle ear function. CPT code: 25361 RIGHT EAR: Normal ME pressure and TM compliance (mobility). LEFT EAR: Normal ME pressure and TM compliance (mobility). PURE TONE AUDIOMETRY AND SPEECH TESTING Description of procedure: This test is an objective evaluation hearing sensitivity via air and bone conduction and speech recognition testing. CPT code:83345 RIGHT EAR: Hearing Sensitivity: Hearing sensitivity within normal limits except for a moderate High Frequency Sensorineural Hearing Loss at 8K Hz. Word Recognition Score: Excellent (100%). WRS is consistent with hearing sensitivity. Words were presented at 45 dB HL approximates (45-55 dB HL) intensity level for average conversational speech. The NU-6 Ordered by Difficulty Word List (10 words) was used for testing. LEFT EAR: Hearing Sensitivity: Hearing sensitivity within normal limits except for a moderate High Frequency Sensorineural Hearing Loss at 8K Hz. Word Recognition Score: Excellent (100%). WRS is consistent with hearing sensitivity. Words were presented at 45 dB HL approximates (45-55 dB HL) intensity level for average conversational speech. The NU-6 Ordered by Difficulty Word List (10 words) was used for testing. PAST MEDICAL HISTORY Diagnosis Date CKD (chronic kidney disease) stage 3, GFR 30-59 ml/min ([facility]) DM type 2 (diabetes mellitus, type 2) ([facility]) HTN (hypertension) Hypothyroidism Mixed hyperlipidemia Overactive bladder No past surgical history on file. No family history on file. Current Outpatient Medications on File Prior to Visit Medication Sig furosemide (LASIX) 20 mg tablet FARXIGA 10 mg tablet atorvastatin (LIPITOR) 10 mg tablet Take by mouth every 24 hours. oxybutynin ER (DITROPAN XL) 10 mg 24 hr tablet SYNTHROID 100 mcg tablet metFORMIN (GLUCOPHAGE) 500 mg tablet fluticasone (FLONASE) 50 mcg/actuation nasal spray 1 (one) time each day at the same time. Cranberry 400 mg cap Take 400 mg by mouth. Multivitamin capsule Take 1 capsule by mouth every morning. DOCOSAHEXAENOIC ACID ORAL Take by mouth as directed. Calcium Citrate-Vitamin D2 250 mg-2.5 mcg (100 unit) tab Take 1 tablet by mouth every morning. HAIR, SKIN AND NAILS, BIOTIN, ORAL Take by mouth as directed. [id number]- algal oil (METANX, ALGAL OIL,) 3 mg-35 mg-2 mg -90.314 mg cap Take by mouth as directed. No current facility-administer ed medications on file prior to visit. There are no exam notes on file for this visit. Physical exam: General Appearance: 72 year old female is alert, oriented, not in acute distress. Hearing is grossly normal, voice is clear. There is no tenderness with percussion over the paranasal sinuses. Eyes: PEERLA, extraocular movements are full. Nose: Clean, septum is straight. There are no polyps. There is no discharge. Oropharynx: Teeth are in good repair. In the left buccal mucosa there is a small 1 cm x 1-1/2 cm area of whitish mucosa suspicious for lichen (more content not included)... Normal [facility] ---- VIVIAN VIZCAINO ([id number]) 1950 F Date Time Provider Department 08/10/23 8:00 AM ESTER BLANCA [facility] During your visit today, we recorded the following information about you: Ester Blanca AuD, CCC-A 08/10/2023 10:00 AM Signed [facility] [place] AUDIOLOGIC EVALUATION REPORT Name: Vivian Vizcaino [facility]#: [id number] Date of Service: 08/10/2023 Date of : 1950 Age: [age] year old Referred by: Elicia Redd [address] [place] [address] [place] [address] Referred for: Evaluation of the cause of disorder of hearing, tinnitus, or balance. Referral documented: In an order in [facility] Patient's major complaints: Hearing Loss/Hearing Problem. Vivian reported she has some trouble hearing/understandi ng speech and some trouble hearing the dialogue when watching TV unless the volume is louder. Her notices this problem. Patient denies tinnitus. Vivian Vizcaino was seen for an initial audiologic evaluation. See SmartForm Audiogram for additional reported history and symptoms. Risk of Falls Documentation for over 65 years old: No history of falls reported so minimal to no risk IMPRESSIONS RIGHT EAR: Hearing within normal limits AND High Frequency Sensorineural Hearing Loss consistent with presbycusis LEFT EAR: Hearing within normal limits AND High Frequency Sensorineural Hearing Loss consistent with presbycusis AUDIOLOGIC EVALUATION Following is a brief interpretation of the obtained findings from the audiologic evaluation. Refer to the Auditory Test Record for complete audiometric results. The patient was counseled about the test findings and appropriate audiologic recommendations were made. SUMMARY: Audiogram can be viewed under Proc tab. OTOSCOPY RIGHT EAR: Otoscopic inspection revealed clear ear canal, Tympanic Membrane intact with an identifiable cone of light. LEFT EAR: Otoscopic inspection revealed clear ear canal, Tympanic Membrane intact with an identifiable cone of light. TYMPANOMETRY Description of procedure: This test is an objective evaluation of middle ear function. CPT code: 87234 RIGHT EAR: Normal ME pressure and TM compliance (mobility). LEFT EAR: Normal ME pressure and TM compliance (mobility). PURE TONE AUDIOMETRY AND SPEECH TESTING Description of procedure: This test is an objective evaluation hearing sensitivity via air and bone conduction and speech recognition testing. CPT code:44041 RIGHT EAR: Hearing Sensitivity: Hearing sensitivity within normal limits except for a moderate High Frequency Sensorineural Hearing Loss at 8K Hz. Word Recognition Score: Excellent (100%). WRS is consistent with hearing sensitivity. Words were presented at 45 dB HL approximates (45-55 dB HL) intensity level for average conversational speech. The NU-6 Ordered by Difficulty Word List (10 words) was used for testing. LEFT EAR: Hearing Sensitivity: Hearing sensitivity within normal limits except for a moderate High Frequency Sensorineural Hearing Loss at 8K Hz. Word Recognition Score: Excellent (100%). WRS is consistent with hearing sensitivity. Words were presented at 45 dB HL approximates (45-55 dB HL) intensity level for average conversational speech. The NU-6 Ordered by Difficulty Word List (10 words) was used for testing. RECOMMENDATIONS 1. ENT consult today with Elicia Redd APRN.CNP. 2. Recheck as needed. 3. Hearing conservation. Tania Vasquez, PUNEET/A Clinical [employer] Center Associate VILLANUEVA Abbrev- iation Definition Degree of hearing sensitivity dB range WNL within normal limits WNL 0 - 20 SNHL sensorineural hearing loss Mild 20-40 CHL conductive hearing loss Moderate 40-55 MHL mixed hearing loss Moderately-Severe 55-70 WRS word recognition score Severe 70-90 ME middle ear Profound 90 + TM tympanic membrane Referring Provider: ELICIA REDD [[id number]] Allergies As of Date: 08/10/2023 (No Known Allergies) Date Reviewed: 08/10/2023 Reviewed by: Elicia Redd APRN.FOOT CASTER - Fully Assessed Primary Visit Diagnosis:Other specified hearing loss, unspecified ear [H91.8X9] Other Visit Diagnosis:Type 2 diabetes mellitus with stage 3a chronic kidney disease, without long-term current use of insulin (HCC) [E11.22, N18.31] Order(s):HEARING TEST/AUDIOGRAM [[id number]] Order #: [id number]: 1 Prescriptions as of 08/10/2023 - furosemide (LASIX) 20 mg tablet - FARXIGA 10 mg tablet - atorvastatin (LIPITOR) 10 mg tablet Take by mouth every 24 hours. - oxybutynin ER (DITROPAN XL) 10 mg 24 hr tablet - SYNTHROID 100 mcg tablet - metFORMIN (GLUCOPHAGE) 500 mg tablet - fluticasone (FLONASE) 50 mcg/actuation nasal spray 1 (one) time each day at the same time. - Cranberry 400 mg cap Take 400 mg by mouth. - Multivitamin capsule Take 1 capsule by mouth every morning. - DOCOSAHEXAENOIC ACID ORAL Take by mouth as (more content not included)... Normal [facility] PTH INTACTon 02-13-2023 PTH, Intact 27 pg/mL Normal 15-65 [facility] Comment on above: Performed By: #### S [facility] #### [facility] [address] [place] [address] Dr. Deloris Nolan HEMOGRAM AND PLATELon 2022 Hematocrit (Bld) [Volume fraction] 41.9 % Normal 36.0-48.0 [facility] Comment on above: Performed By: #### S MOOTHM #### [facility] [address] [place] [address] Dr. Deloris Nolan Hemoglobin (Bld) [Mass/Vol] 12.9 g/dL Normal 12.0-16.0 [facility] Comment on above: Performed By: #### S MOOTHM #### [facility] [address] [place] [address] Dr. Deloris Nolan MCH (RBC) [Entitic mass] 25.9 pg Critically low 26.7-34 .0 [facility] Comment on above: Performed By: #### S MOOTHM #### [facility] [address] [place] [address] Dr. Deloris Nolan MCHC (RBC) [Mass/Vol] 30.8 g/dL Normal 29.9-35.2 [facility] Comment on above: Performed By: #### S MOOTHM #### [facility] [address] [place] [address] Dr. Deloris Nolan MCV (RBC) [Entitic vol] 84.1 fL Normal 81.0-99.0 [facility] Comment on above: Performed By: #### S MOOTHM #### [facility] [address] [place] [address] Dr. Deloris Nolan PLT 212 103/ul Normal 150-[address] [facility] Comment on above: Performed By: #### S MOOTHM #### [facility] [address] [place] [address] Dr. Deloris Nolan RBC 4.98 106/ul Normal 4.20-5.[address] [facility] Comment on above: Performed By: #### S MOOTHM #### [facility] [address] [place] [address] Dr. Deloris Nolan WBC 7.4 103/ul Normal 4.0-11.[address] [facility] Comment on above: Performed By: #### S MOOTHM #### [facility] [address] [address] [address] Deloris Nolan RENAL FUNCTION PANELon 02-12 Albumin [Mass/Vol] 3.6 g/dL Normal 3.4-5.0 [facility] Comment on above: Performed By: #### A LPHA-1 #### [facility] [address] [address] [address] Deloris Nolan Calcium [Mass/Vol] 9.3 mg/dL Normal 8.5-10.1 [facility] Comment on above: Performed By: #### A LPHA-1 #### [facility] [address] [address] [address] Deloris Nolan Chloride [Moles/Vol] 104 mmol/L Normal 98-107 [facility] Comment on above: Performed By: #### A LPHA-1 #### [facility] [address] [place] [address] Dr. Deloris Nolan CO2 [Moles/Vol] 28.3 mmol/L Normal 21.0-32.0 [facility] Comment on above: Performed By: #### A LPHA-1 #### [facility] [address] [place] [address] Dr. Deloris Nolan Creatinine [Mass/Vol] 1.00 mg/dL Normal 0.55-1.02 [facility] Comment on above: Performed By: #### A LPHA-1 #### [facility] [address] [place] [address] Dr. Deloris Nolan EGFR-AF PRYDEINIG >60 Normal >=60 [facility] Comment on above: Performed By: #### A LPHA-1 #### [facility] [address] [address] [address] Deloris Nolan EGFR-NON AF PRYDEINIG 55 mL/min/1.73m2 Critically low >=60 [facility] Comment on above: Performed By: #### A LPHA-1 #### [facility] [address] [address] [address] Deloris Nolan Glucose [Mass/Vol] 155 mg/dL Critically high 74-106 [facility] Comment on above: Performed By: #### A LPHA-1 #### [facility] [address] [address] [address] Deloris Nolan Phosphate [Mass/Vol] 3.8 mg/dL Normal 2.6-4.7 [facility] Comment on above: Performed By: #### A LPHA-1 #### [facility] [address] [place] [address] Dr. Deloris Nolan Potassium [Moles/Vol] 4.4 mmol/L Normal 3.5-5.1 [facility] Comment on above: Performed By: #### A LPHA-1 #### [facility] [address] [place] [address] Dr. Deloris Nolan Sodium [Moles/Vol] 140 mmol/L Normal 136-145 [facility] Comment on above: Performed By: #### A LPHA-1 #### [facility] [address] [place] [address] Dr. Deloris Nolan Urea nitrogen [Mass/Vol] 21.0 mg/dL Critically high 7.0-18 .0 [facility] Comment on above: Performed By: #### A LPHA-1 #### [facility] [address] [place] [address] Dr. Deloris Nolan UA RANDOM W/MICROSCOPICon BACTERIA NONE SEEN Normal NONE SEEN [facility] Comment on above: Performed By: #### U AMIC #### [facility] [address] [place] [address] Dr. Deloris Nolan Bilirubin Ql (U) Negative Normal NEGATIVE [facility] Comment on above: Performed By: #### U AMIC #### [facility] [address] [place] [address] Dr. Deloris Nolan CAST NONE SEEN Normal NONE SEEN [facility] Comment on above: Performed By: #### U AMIC #### [facility] [address] [place] [address] Dr. Deloris Nolan Clarity (U) CLEAR Normal CLEAR [facility] Comment on above: Performed By: #### U AMIC #### [facility] [address] [address] [address] Deloris Nolan Color (U) LT. YELLOW Normal YELLOW [facility] Comment on above: Performed By: #### U AMIC #### [facility] [address] [address] [address] Deloris Nolan Crystals LM Nom (Urine sed) NONE SEEN Normal NONE SEEN [facility] Comment on above: Performed By: #### U AMIC #### [facility] [address] [address] [address] Deloris Nolan Epithelial cells LM Ql (Urine sed) FEW Abnormal NONE SEEN /RARE The [facility] Comment on above: Result Comment: Prev iously reported as: NONE SEEN On 02/12/2023 10:35 By EM6 Performed By: #### U AMIC #### [facility] [address] [place] [address] Dr. Deloris Nolan Glucose Ql (U) >1000 Abnormal NEGATIVE [facility] Comment on above: Performed By: #### U AMIC #### [facility] [address] [place] [address] Dr. Deloris Nolan Hemoglobin Ql (U) SMALL Abnormal NEGATIVE The [facility] Comment on above: Performed By: #### U AMIC #### [facility] [address] [place] [address] Dr. Deloris Nolan Ketones Ql (U) Negative Normal NEGATIVE [facility] Comment on above: Performed By: #### U AMIC #### [facility] [address] [address] [address] Deloris Nolan LEUKOCYTES Negative Normal NEGATIVE The [facility] Comment on above: Performed By: #### U AMIC #### [facility] [address] [address] [address] Deloris Nolan MUCOUS NONE SEEN Normal NONE SEEN [facility] Comment on above: Performed By: #### U AMIC #### [facility] [address] [address] [address] Deloris Nolan Nitrite Ql (U) Negative Normal NEGATIVE [facility] Comment on above: Performed By: #### U AMIC #### [facility] [address] [address] [address] Deloris Nolan pH (U) 6.5 [pH] Normal 5-[address] [facility] Comment on above: Performed By: #### U AMIC #### [facility] [address] [address] [address] Deloris Nolan RBC 5-10 Abnormal 0-[address] [facility] Comment on above: Result Comment: Prev iously reported as: NONE SEEN On 02/12/2023 10:35 By EM6 Performed By: #### U AMIC #### [facility] [address] [place] [address] Dr. Deloris Nolan SPEC GRAVITY 1.015 Normal 1.005-<=1.025 The [facility] Comment on above: Performed By: #### U AMIC #### [facility] [address] [place] [address] Dr. Deloris Nolan UA PROTEIN Negative Normal NEGATIVE/ TRACE The [facility] Comment on above: Performed By: #### U AMIC #### [facility] [address] [place] [address] Dr. Deloris Nolan Urobilinogen Qn (U) 0.2 {Juan Diego'U}/dL Normal 0.2 - 1. [address] [facility] Comment on above: Performed By: #### U AMIC #### [facility] [address] [place] [address] Dr. Deloris Nolan WBC NONE SEEN Normal NONE SEEN The [facility] Comment on above: Performed By: #### U AMIC #### [facility] [address] [place] [address] Dr. Deloris Nolan URIC ACID SERUMon 02-12-2023 Urate [Mass/Vol] 6.1 mg/dL Critically high 2.6-6.0 [facility] Comment on above: Performed By: #### A LPHA-1 #### [facility] [address] [place] [address] Dr. Deloris Nolan URINE T PROTEIN CREAT RATIOo n 02-12-2023 Protein (U) [Mass/Vol] 8.7 mg/dL Normal <=12.[address] [facility] Comment on above: Performed By: #### S MOOTHM #### [facility] [address] [address] [address] Deloris Nolan UR PROT CREAT RAT 0.10 Normal [facility] Comment on above: Performed By: #### S MOOTHM #### [facility] [address] [address] [address] Deloris Nolan URINE CREAT 84.26 mg/dL Normal 20.00-300.00 [facility] Comment on above: Performed By: #### S MOOTHM #### [facility] [address] [place] [address] Dr. Deloris Nolan VITAMIN D 25 OHon 02-12-2023 VIT D 25-OH 41.6 ng/mL Normal [facility] Comment on above: Performed By: #### V ITAD #### [facility] [address] [place] [address] Dr. Deloris Nolan VIT D RANGES SEE BELOW Normal [facility] Comment on above: Result Comment: <20 ng/mL Vit D deficient 20 - <30 ng/mL Vit D insufficient 30 - 100 ng/mL Vit D sufficient >100 ng/mL Potential Toxicity Performed By: #### V ITAD #### [facility] [address] [place] [address] Dr. Deloris Nolan XR Chest 2 Views*on 11-13-19 23 XR Chest 2 Views* HISTORY: Cough, SOB, sore throat for 2 weeks COMPARISON: 07/10/22. FINDINGS: The lungs are symmetrically inflated. No focal airspace disease. No pneumothorax or pleural effusion. Heart size is within normal limits. There are minimal atherosclerotic calcifications of the aortic arch. C7-T1 ACDF, and bilateral humeral head suture anchors are noted. No acute osseous abnormality. IMPRESSION: No acute cardiopulmonary abnormality identified. Report reported and signed by Estrada Cummins on 11/13/2022 1510 Normal [facility] [employer] SCREENING MAMMOGRAM W/LAKESHA, BILATERAL*on 10-04-2022 SCREENING MAMMOGRAM W/LAKESHA, BILATERAL* COMPARISON: August 22, 2021, August 19, 2020 TECHNIQUE: 2D and 3D Tomosynthesis of the right and left breasts was performed. FINDINGS: Breast composition demonstrates scattered fibroglandular densities. Overall appearance is stable. No suspicious microcalcifications , asymmetry, architectural distortion, or associated features are present. IMPRESSION: BIRADS 1: Negative mammogram Board Certified Radiologist. Accredited by the ACR and FDA. MAMMOGRAPHY IS VERY IMPORTANT TO YOUR HEALTH. THE CURRENT [employer] OF [employer]IOLOG[employer] AND NATIONAL COMPREHENSIVE CANCER NETWORK GUIDELINES RECOMMENDS ANNUAL MAMMOGRAPHY BEGINNING AT AGE 40 THIS FACILITY USES A REMINDER SYSTEM TO ENSURE ALL PATIENTS RECEIVE REMINDER NOTIFICATIONS AT THE APPROPRIATE TIME BASED ON THE RECOMMENDATIONS OF THIS EXAM. Report reported and signed by Ravi Naranjo on 10/04/2022 1544 Normal [facility] [id number] 2021 [id number], Serum 144 mg/dL Normal 101-187 [facility] Comment on above: Performed By: #### A LPHA-1 #### [facility] [address] [place] [address] Dr. Deloris Nolan GREG EIA W/REFLEX 9 BIOMARKER Son 08-30-2022 GREG Direct Negative Normal Negative [facility] Comment on above: Performed By: #### A NARF9 #### [facility] [address] [address] [address] Deloris Nolan CERULOPLASMINon 08-30-2022 Ceruloplasmin 20.6 mg/dL Normal 19.0-39.0 [facility] Comment on above: Performed By: #### S MOOTHM #### [facility] [address] [address] [address] Deloris Nolan SMOOTH MUSCLE ANTIBODYon Actin (Smooth Muscle) Antibody 7 Units Normal 0-19 [facility] Comment on above: Result Comment: Nega tive 0 - 19 Weak positive 20 - 30 Moderate to strong positive >30 . Actin Antibodies are found in 52-85% of patients with autoimmune hepatitis or chronic active hepatitis and in 22% of patients with primary biliary cirrhosis. Performed By: #### S MOOTHM #### [facility] [address] [address] [address] Deloris Nolan CBC AUTO DIFFon 2022 BASO # 0.0 103/ul Normal 0.0-0.1 [facility] Comment on above: Performed By: #### S MOOTHM #### [facility] [address] [place] [address] Dr. Deloris Nolan Basophils/100 WBC (Bld) 0.5 % Normal 0.2-2.0 [facility] Comment on above: Performed By: #### S MOOTHM #### [facility] [address] [place] [address] Dr. Deloris Nolan EO # 0.3 103/ul Normal 0.0-0.7 [facility] Comment on above: Performed By: #### S MOOTHM #### [facility] [address] [place] [address] Dr. Deloris Nolan Eosinophils/100 WBC (Bld) 3.2 % Normal 0.9-7.0 [facility] Comment on above: Performed By: #### S MOOTHM #### [facility] [address] [place] [address] Dr. Deloris Nolan Erythrocyte distribution width (RBC) [Ratio] 13.6 % Normal 11.0-15.0 [facility] Comment on above: Performed By: #### S MOOTHM #### [facility] [address] [place] [address] Dr. Deloris Nolan Hematocrit (Bld) [Volume fraction] 40.6 % Normal 36.0-48.0 [facility] Comment on above: Performed By: #### S MOOTHM #### [facility] [address] [place] [address] Dr. Deloris Nolan Hemoglobin (Bld) [Mass/Vol] 13.6 g/dL Normal 12.0-16.0 [facility] Comment on above: Performed By: #### S MOOTHM #### [facility] [address] [place] [address] Dr. Deloris Nolan IG # 0.03 10e3/ul Normal 0.00-0.03 [facility] Comment on above: Performed By: #### S MOOTHM #### [facility] [address] [place] [address] Dr. Deloris Nolan IG % 0.4 % Normal 0.0-0.5 [facility] Comment on above: Performed By: #### S WAGNERM #### [facility] [address] [place] [address] Dr. Deloris Nolan LYMPH # 2.4 103/ul Normal 1.2-3.8 [facility] Comment on above: Performed By: #### S WAGNERM #### [facility] [address] [place] [address] Dr. Deloris Nolan Lymphocytes/100 WBC (Bld) 31.6 % Normal 20.5-60.0 [facility] Comment on above: Performed By: #### S WAGNERM #### [facility] [address] [place] [address] Dr. Deloris Nolan MANUAL DIFF REQ NO Normal [facility] Comment on above: Performed By: #### S WAGNERM #### [facility] [address] [place] [address] Dr. Deloris Nolan MCH (RBC) [Entitic mass] 29.3 pg Normal 26.7-34.0 [facility] Comment on above: Performed By: #### S WAGNERM #### [facility] [address] [place] [address] Dr. Deloris Nolan MCHC (RBC) [Mass/Vol] 33.5 g/dL Normal 29.9-35.2 [facility] Comment on above: Performed By: #### S WAGNERM #### [facility] [address] [place] [address] Dr. Deloris Nolan MCV (RBC) [Entitic vol] 87.5 fL Normal 81.0-99.0 [facility] Comment on above: Performed By: #### S WAGNERM #### [facility] [address] [place] [address] Dr. Deloris Nolan MONO # 0.6 103/ul Normal 0.3-0.8 [facility] Comment on above: Performed By: #### S WAGNERM #### [facility] [address] [place] [address] Dr. Deloris Nolan Monocytes/100 WBC (Bld) 7.9 % Normal 1.7-12.0 [facility] Comment on above: Performed By: #### S WAGNERM #### [facility] [address] [address] [address] Deloris Nolan NEUT # 4.3 103/ul Normal 1.4-6.5 [facility] Comment on above: Performed By: #### S WAGNERM #### [facility] [address] [place] [address] Dr. Deloris Nolan Neutrophils/100 WBC (Bld) 56.4 % Normal 43.0-75.0 [facility] Comment on above: Performed By: #### S WAGNERM #### [facility] [address] [place] [address] Dr. Deloris Nolan Platelet mean volume (Bld) [Entitic vol] 9.0 fL Critically low 9.5-13.5 [facility] Comment on above: Performed By: #### S WAGNERM #### [facility] [address] [place] [address] Dr. Deloris Nolan PLT 201 103/ul Normal 150-450 [facility] Comment on above: Performed By: #### S WAGNERM #### [facility] [address] [place] [address] Dr. Deloris Nolan RBC 4.64 106/ul Normal 4.20-5.40 [facility] Comment on above: Performed By: #### Alexandra EDWARDM #### [facility] [address] [place] [address] Dr. Deloris Nolan WBC 7.7 103/ul Normal 4.0-11.[address] [facility] Comment on above: Performed By: #### S WAGNERM #### [facility] [address] [place] [address] Dr. Deloris Nolan FERRITINon 2022 Ferritin [Mass/Vol] 102.0 ng/mL Normal 8.0-252.0 [facility] Comment on above: Performed By: #### S WAGNERM #### [facility] [address] [address] [address] Deloris Nolan IRON AND TIBCon 2022 % SATURATION 17.1 % Normal [facility] Comment on above: Performed By: #### S MOOTHM #### [facility] [address] [place] [address] Dr. Deloris Nolan Iron [Mass/Vol] 68.0 ug/dL Normal 50.0-170.0 [facility] Comment on above: Performed By: #### S MOOTHM #### [facility] [address] [place] [address] Dr. Deloris Nolan TIBC DIRECT 398.0 ug/dL Normal 250.0-450.0 [facility] Comment on above: Performed By: #### S MOOTHM #### [facility] [address] [place] [address] Dr. Deloris Nolan LIVER PROFILEon 2022 Albumin [Mass/Vol] 3.8 g/dL Normal 3.4-5.0 [facility] Comment on above: Performed By: #### S MOOTHM #### [facility] [address] [place] [address] Dr. Deloris Nolan Albumin/Globulin [Mass ratio] 0.9 {ratio} Normal [facility] Comment on above: Performed By: #### S MOOTHM #### [facility] [address] [place] [address] Dr. Deloris Nolan ALP [Catalytic activity/Vol] 71 U/L Normal 46-[address] [facility] Comment on above: Performed By: #### S MOOTHM #### [facility] [address] [place] [address] Dr. Deloris Nolan ALT [Catalytic activity/Vol] 109 U/L Critically high 14-59 [facility] Comment on above: Performed By: #### S MOOTHM #### [facility] [address] [place] [address] Dr. Deloris Nolan AST [Catalytic activity/Vol] 87 U/L Critically high 15-37 [facility] Comment on above: Performed By: #### S MOOTHM #### [facility] [address] [address] [address] Deloris Nolan BILI, CONJUGATED 0.1 mg/dL Normal 0.0-0.2 [facility] Comment on above: Performed By: #### S MOOTHM #### [facility] [address] [place] [address] Dr. Deloris Nolan Bilirubin [Mass/Vol] 0.3 mg/dL Normal 0.2-1.0 [facility] Comment on above: Performed By: #### S MOOTHM #### [facility] [address] [place] [address] Dr. Deloris Nolan Globulin (S) [Mass/Vol] 4.0 g/dL Normal [facility] Comment on above: Performed By: #### S MOOTHM #### [facility] [address] [place] [address] Dr. Deloris Nolan Protein [Mass/Vol] 7.8 g/dL Normal 6.4-8.2 [facility] Comment on above: Performed By: #### S MOOTHM #### [facility] [address] [place] [address] Dr. Deloris Nolan PROTIMEon 2022 INR Coag (PPP) [Relative time] 1.06 {INR} Normal [facility] Comment on above: Performed By: #### S MOOTHM #### [facility] [address] [place] [address] Dr. Deloris Nolan INR GUIDELINES SEE BELOW Normal [facility] Comment on above: Result Comment: NILDA RED INR: 2.0 - 3.0 CONDITIONS NOT LISTED BELOW 2.5 - 3.5 FOR PROSTHETIC HEART VALVE REPLACEMENT 2.5 - 3.5 RECURRENT THROMBOSIS Performed By: #### S MOOTHM #### [facility] [address] [place] [address] Dr. Deloris Nolan PT Coag (PPP) [Time] 11.4 s Normal 9.0-11.6 [facility] Comment on above: Performed By: #### S MOOTHM #### [facility] [address] [place] [address] Dr. Deloris Nolan HEMOGRAM AND PLATELon 2021 Hematocrit (Bld) [Volume fraction] 42.9 % Normal 36.0-48.0 [facility] Comment on above: Performed By: #### H H #### [facility] [address] [place] [address] Dr. Deloris Nolan Hemoglobin (Bld) [Mass/Vol] 14.0 g/dL Normal 12.0-16.0 [facility] Comment on above: Performed By: #### H H #### [facility] [address] [place] [address] Dr. Deloris Nolan MCH (RBC) [Entitic mass] 29.1 pg Normal 26.7-34.0 [facility] Comment on above: Performed By: #### H H #### [facility] [address] [place] [address] Dr. Deloris Nolan MCHC (RBC) [Mass/Vol] 32.6 g/dL Normal 29.9-35.2 [facility] Comment on above: Performed By: #### H H #### [facility] [address] [place] [address] Dr. Deloris Nolan MCV (RBC) [Entitic vol] 89.2 fL Normal 81.0-99.0 [facility] Comment on above: Performed By: #### H H #### [facility] [address] [place] [address] Dr. Deloris Nolan PLT 237 103/ul Normal 150-[address] [facility] Comment on above: Performed By: #### H H #### [facility] [address] [place] [address] Dr. Deloris Nolan RBC 4.81 106/ul Normal 4.20-5.[address] [facility] Comment on above: Performed By: #### H H #### [facility] [address] [place] [address] Dr. Deloris Nolan WBC 8.2 103/ul Normal 4.0-11.0 [facility] Comment on above: Performed By: #### H H #### [facility] [address] [place], [place] [id number] Dr. Deloris Nolan MAGNESIUMon 08-08-2022 Magnesium [Mass/Vol] 2.0 mg/dL Normal 1.8-2.4 [facility] Comment on above: Performed By: #### M G, URIC, RENAL #### [facility] [address] [place] [address] Dr. Deloris Nolan RENAL FUNCTION PANELon 08-08 Albumin [Mass/Vol] 3.7 g/dL Normal 3.4-5.0 [facility] Comment on above: Performed By: #### M G, URIC, RENAL #### [facility] [address] [place] [address] Dr. Deloris Nolan Calcium [Mass/Vol] 9.0 mg/dL Normal 8.5-10.1 [facility] Comment on above: Performed By: #### M G, URIC, RENAL #### [facility] [address] [place] [address] Dr. Deloris Nolan Chloride [Moles/Vol] 100 mmol/L Normal 98-[address] [facility] Comment on above: Performed By: #### M G, URIC, RENAL #### [facility] [address] [place] [address] Dr. Deloris Nolan CO2 [Moles/Vol] 30.6 mmol/L Normal 21.0-32.0 [facility] Comment on above: Performed By: #### M G, URIC, RENAL #### [facility] [address] [place] [address] Dr. Deloris Nolan Creatinine [Mass/Vol] 0.94 mg/dL Normal 0.55-1.[address] [facility] Comment on above: Performed By: #### M G, URIC, RENAL #### [facility] [address] [place] [address] Dr. Deloris Nolan EGFR-AF PRYDEINIG >60 Normal >=60 [facility] Comment on above: Performed By: #### M G, URIC, RENAL #### [facility] [address] [place] [address] Dr. Deloris Nolan EGFR-NON AF PRYDEINIG 59 mL/min/1.73m2 Critically low >=60 [facility] Comment on above: Performed By: #### M G, URIC, RENAL #### [facility] [address] [place] [address] Dr. Deloris Nolan Glucose [Mass/Vol] 161 mg/dL Critically high 74-106 [facility] Comment on above: Performed By: #### M G, URIC, RENAL #### [facility] [address] [place] [address] Dr. Deloris Nolan Phosphate [Mass/Vol] 3.3 mg/dL Normal 2.6-4.7 [facility] Comment on above: Performed By: #### M G, URIC, RENAL #### [facility] [address] [place] [address] Dr. Deloris Nolan Potassium [Moles/Vol] 4.3 mmol/L Normal 3.5-5.1 [facility] Comment on above: Performed By: #### M G, URIC, RENAL #### [facility] [address] [place] [address] Dr. Deloris Nolan Sodium [Moles/Vol] 136 mmol/L Normal 136-145 [facility] Comment on above: Performed By: #### M G, URIC, RENAL #### [facility] [address] [place] [address] Dr. Deloris Nolan Urea nitrogen [Mass/Vol] 15.0 mg/dL Normal 7.0-18.0 [facility] Comment on above: Performed By: #### M G, URIC, RENAL #### [facility] [address] [place] [address] Dr. Deloris Nolan UA RANDOM W/MICROSCOPICon BACTERIA SMALL Abnormal NONE SEEN The [facility] Comment on above: Performed By: #### S BIBOTHM #### [facility] [address] [place] [address] Dr. Deloris Nolan Bilirubin Ql (U) Negative Normal NEGATIVE The [facility] Comment on above: Performed By: #### S BIBOTHM #### [facility] [address] [place] [address] Dr. Deloris Nolan CAST NONE SEEN Normal NONE SEEN [facility] Comment on above: Performed By: #### S MOOTHM #### [facility] [address] [address] [address] Deloris Nolan Clarity (U) CLEAR Normal CLEAR [facility] Comment on above: Performed By: #### S MOOTHM #### [facility] [address] [place] [address] Dr. Deloris Nolan Color (U) LT. YELLOW Normal YELLOW [facility] Comment on above: Performed By: #### S MOOTHM #### [facility] [address] [address] [address] Deloris Nolan Crystals LM Nom (Urine sed) NONE SEEN Normal NONE SEEN [facility] Comment on above: Performed By: #### S MOOTHM #### [facility] [address] [place] [address] Dr. Deloris Nolan Epithelial cells LM Ql (Urine sed) FEW Abnormal NONE SEEN /RARE [facility] Comment on above: Performed By: #### S MOOTHM #### [facility] [address] [place] [address] Dr. Deloris Nolan Glucose Ql (U) Negative Normal NEGATIVE [facility] Comment on above: Performed By: #### S MOOTHM #### [facility] [address] [place] [address] Dr. Deloris Nolan Hemoglobin Ql (U) Negative Normal NEGATIVE The [facility] Comment on above: Performed By: #### S MOOTHM #### [facility] [address] [place] [address] Dr. Deloris Nolan Ketones Ql (U) Negative Normal NEGATIVE [facility] Comment on above: Performed By: #### S MOOTHM #### [facility] [address] [place] [address] Dr. Deloris Nolan LEUKOCYTES SMALL Abnormal NEGATIVE The [facility] Comment on above: Performed By: #### S MOOTHM #### [facility] [address] [place] [address] Dr. Deloris Nolan MUCOUS NONE SEEN Normal NONE SEEN [facility] Comment on above: Performed By: #### S MOOTHM #### [facility] [address] [place] [address] Dr. Deloris Nolan Nitrite Ql (U) Negative Normal NEGATIVE [facility] Comment on above: Performed By: #### S MOOTHM #### [facility] [address] [place] [address] Dr. Deloris Nolan pH (U) 6.0 [pH] Normal 5-[address] [facility] Comment on above: Performed By: #### S MOOTHM #### [facility] [address] [place] [address] Dr. Deloris Nolan RBC NONE SEEN Abnormal 0-2 [facility] Comment on above: Performed By: #### S MOOTHM #### [facility] [address] [place] [address] Dr. Deloris Nolan SPEC GRAVITY 1.015 Normal 1.005-<=1.025 The [facility] Comment on above: Performed By: #### S MOOTHM #### [facility] [address] [place] [address] Dr. Deloris Nolan UA PROTEIN Negative Normal NEGATIVE/ TRACE [facility] Comment on above: Performed By: #### S MOOTHM #### [facility] [address] [place] [address] Dr. Deloris Nolan Urobilinogen Qn (U) 0.2 {Juan Diego'U}/dL Normal 0.2 - 1. 0 [facility] Comment on above: Performed By: #### S MOOTHM #### [facility] [address] [place] [address] Dr. Deloris Nolan WBC 2-5 Abnormal NONE SEEN The [facility] Comment on above: Performed By: #### S MOOTHM #### [facility] [address] [place] [address] Dr. Deloris Nolan URIC ACID SERUMon 08-08-2022 Urate [Mass/Vol] 7.7 mg/dL Critically high 2.6-6.0 [facility] Comment on above: Performed By: #### M G, URIC, RENAL #### [facility] [address] [address] [address] Deloris Nolan URINE T PROTEIN CREAT RATIOo n 08-08-2022 Protein (U) [Mass/Vol] 12.2 mg/dL Critically high <=12.[address] [facility] Comment on above: Performed By: #### U RTPCR #### [facility] [address] [place] [address] Dr. Deloris Nolan UR PROT CREAT RAT 0.10 Normal [address] [facility] Comment on above: Performed By: #### U RTPCR #### [facility] [address] [place] [address] Dr. Deloris Nolan URINE CREAT 123.93 mg/dL Normal 20.00-300.00 [facility] Comment on above: Performed By: #### U RTPCR #### [facility] [address] [place] [address] Dr. Deloris Nolan VITAMIN D 25 OHon 08-08-2022 VIT D 25-OH 45.3 ng/mL Normal The [facility] Comment on above: Performed By: #### A LPHA-1 #### [facility] [address] [place] [address] Dr. Deloris Nolan VIT D RANGES SEE BELOW Normal [facility] Comment on above: Result Comment: <20 ng/mL Vit D deficient 20 - <30 ng/mL Vit D insufficient 30 - 100 ng/mL Vit D sufficient >100 ng/mL Potential Toxicity Performed By: #### A LPHA-1 #### [facility] [address] [place] [address] Dr. Deloris Nolan XR Chest 2 Views*on 07-10-20 22 XR Chest 2 Views* HISTORY: Chest pain x 4 days FINDINGS: No acute cardiac or pulmonary disease is identified. No worrisome mass lesions or infiltrates are seen. No pulmonary edema or pneumothorax is present. Cardiac silhouette size is normal. Cervical thoracic plate screw fusion hardware. IMPRESSION: No acute cardiac or pulmonary disease. Report reported and signed by Ravi Naranjo on 07/11/2022 0719 Normal [facility] [employer] MRI Shoulder w/o Righton MRI Shoulder w/o Right HISTORY: Diffuse right shoulder pain. History of prior rotator cuff repair in 2012. Fall with injury in February. TECHNIQUE: Routine non-contrast MRI of the shoulder , right side COMPARISON: Radiographs 04/13/2022. RESULT: Rotator Cuff Tendons: Changes from prior rotator cuff repair. No evidence for recurrent tear. Mild to moderate tendinosis involving supraspinatus and infraspinatus. Subscapularis and teres minor appear intact. Long Head Biceps Tendon: Intact with appropriate location. Muscle: Muscle bulk and signal intensity are within normal limits. Labrum: Appears intact. Bones and Marrow: No evidence of fracture or bone marrow replacing process. Glenohumeral Joint: Cartilage appears within normal limits. No joint effusion or synovitis. Acromioclavicular Joint: Moderate degenerative changes with undersurface osteophytes and small 7 mm cyst superior to the joint. Other: No other significant abnormality. IMPRESSION: Changes from prior rotator cuff repair without evidence for recurrent tear. Acromioclavicular osteoarthritis. Report reported and signed by Blanco Tanner on 05/18/2022 1247 Normal [facility] [employer] HEARING TEST/AUDIOGRAM [facility] Vital Signs Date Time Vital Sign Value Performing Clinician Facility 08-27-2023 13:40-0500 Body height 172.72 cm Julien Ronald Other [facility] 08-27-2023 13:40-0500 Body mass index (BMI) [Ratio] 32.54 kg/m2 Julien Ronald Other [facility] 08-27-2023 13:40-0500 Body temperature 97.8 [degF] Julien Ronald Other [facility] Other 08-27-2023 13:40-0500 Body weight 97.07 kg Julien Ronald Other [facility] Other 08-27-2023 13:40-0500 Diastolic blood pressure 84 mm[Hg] Julien Ronald Other [facility] Other 08-27-2023 13:40-0500 Respiratory rate 18 /min Julien Ronald Other [facility] Other 08-27-2023 13:40-0500 SaO2% (BldA) [Mass fraction] 98 % Julien Ronald Other [facility] Other 08-27-2023 13:40-0500 Systolic blood pressure 141 mm[Hg] Julien Ronald Other [facility] Other 08-10-2023 08:50-0400 Heart rate 85 /min Elicia Redd APRN.[employer] Work Phone: [facility] 08-10-2023 08:50-0400 Respiratory rate 17 /min Elicia Redd APRN.[employer] Work Phone: [facility] 08-10-2023 08:50-0400 SaO2% (BldA) [Mass fraction] 97 % Elicia Redd APRN.[employer] Work Phone: [facility] 12-26-2022 11:30-0400 Body height 172.72 cm Jignesh Sargent Other [facility] Other 12-26-2022 11:30-0400 Body mass index (BMI) [Ratio] 34.06 kg/m2 Jignesh Sargent Other [facility] Other 12-26-2022 11:30-0400 Body weight 101.61 kg Jignesh Sargent Other [facility] Other 12-26-2022 11:30-0400 Diastolic blood pressure 70 mm[Hg] Jignesh Sargent Other [facility] Other 12-26-2022 11:30-0400 Systolic blood pressure 125 mm[Hg] Jignesh Israely Other [facility] Other 08-22-2022 10:45-0500 Body height 172.72 cm Jignesh Israely Other [facility] Other 08-22-2022 10:45-0500 Body mass index (BMI) [Ratio] 34.97 kg/m2 Jignesh Israely Other [facility] Other 08-22-2022 10:45-0500 Body weight 104.33 kg Jignesh Israely Other [facility] Other 08-22-2022 10:45-0500 Diastolic blood pressure 74 mm[Hg] Jignesh Israely Other [facility] Other 08-22-2022 10:45-0500 Systolic blood pressure 123 mm[Hg] Jignesh Israely Other [facility] Other 08-22-2022 10:19-0500 Body weight 0 kg MD Wendy Chinchilla Work Phone: [facility] 08-14-2022 11:00-0500 Body height 172.72 cm Julien Ronald Other [facility] Other 08-14-2022 11:00-0500 Body mass index (BMI) [Ratio] 35.64 kg/m2 Julien Ronald Other [facility] Other 08-14-2022 11:00-0500 Body temperature 96.8 [degF] Julien Ronald Other [facility] Other 08-14-2022 11:00-0500 Body weight 106.32 kg Julien Ronald Other [facility] Other 08-14-2022 11:00-0500 Diastolic blood pressure 82 mm[Hg] Julien Ronald Other [facility] Other 08-14-2022 11:00-0500 Respiratory rate 18 /min Julien Ronald Other [facility] Other 08-14-2022 11:00-0500 SaO2% (BldA) [Mass fraction] 97 % Julien Ronald Other [facility] Other 08-14-2022 11:00-0500 Systolic blood pressure 131 mm[Hg] Julien Ronald Other [facility] Other 02-13-2022 10:20-0400 Body height 172.72 cm Julien Ronald Other [facility] Other 02-13-2022 10:20-0400 Body mass index (BMI) [Ratio] 36.18 kg/m2 Julien Ronald Other [facility] Other 02-13-2022 10:20-0400 Body temperature 96.8 [degF] Julien Ronald Other [facility] Other 02-13-2022 10:20-0400 Body weight 107.96 kg Julien Ronald Other [facility] Other 02-13-2022 10:20-0400 Diastolic blood pressure 70 mm[Hg] Julien Ronald Other [facility] Other 02-13-2022 10:20-0400 Respiratory rate 18 /min Julien Ronald Other [facility] Other 02-13-2022 10:20-0400 SaO2% (BldA) [Mass fraction] 98 % Julien Ronald Other [facility] Other 02-13-2022 10:20-0400 Systolic blood pressure 118 mm[Hg] Julien Ronald Other [facility] Other 08-10-2021 14:00-0400 Body height 172.72 cm Julien Ronald Other [facility] Other 08-10-2021 14:00-0400 Body mass index (BMI) [Ratio] 35.79 kg/m2 Julien Ronald Other [facility] Other 08-10-2021 14:00-0400 Body temperature 97 [degF] Julien Ronald Other [facility] Other 08-10-2021 14:00-0400 Body weight 106.78 kg Julien Ronald Other [facility] Other 08-10-2021 14:00-0400 Diastolic blood pressure 82 mm[Hg] Julien Ronald Other [facility] Other 08-10-2021 14:00-0400 Respiratory rate 18 /min Julien Ronald Other [facility] Other 08-10-2021 14:00-0400 SaO2% (BldA) [Mass fraction] 96 % Julien Ronald Other [facility] Other 08-10-2021 14:00-0400 Systolic blood pressure 126 mm[Hg] Julien Ruff Other [facility] Other Encounters Encounter Date Encounter Type Care Provider Facility Start: 01-03-2024 End: 01-03-2024 ambulatory Wendy Chinchilla Facility:[facility] Start: 01-03-2024 End: 01-03-2024 ambulatory MD Wendy Chinchilla Work Phone: [facility] Work Phone: Start: 01-03-2024 End: 01-03-2024 Patient encounter procedure MD Wendy Chinchilla Work Phone: [facility] Work Phone: Start: 12-27-2023 End: 12-27-2023 ambulatory Wendy Chinchilla Facility:[facility] Start: 12-27-2023 End: 12-27-2023 ambulatory MD Wendy Chinchilla Work Phone: [facility] Work Phone: Start: 12-27-2023 End: 12-27-2023 Patient encounter procedure MD Wendy Chinchilla Work Phone: [facility] [place] Work Phone: Start: 12-07-2023 End: 12-07-2023 ambulatory WENDY CHINCHILLA Not Available Start: 11-27-2023 End: 11-27-2023 ambulatory JOHN HIGGINS Not Available Start: 11-26-2023 End: 11-26-2023 ambulatory MORENA GILLIS Not Available Start: 11-19-2023 End: 11-19-2023 ambulatory Jacky Cline [employer] [facility] Comment on above: DDD (degenerative di sc disease), lumbar (Primary Dx); DDD (degenerative disc disease), thoracic Type 2 diabetes bin itus without complication, without long-term current use of insulin ([facility]) Start: 11-19-2023 Bamboo flowsheet Jacky Velazquez nce [employer] [facility] Start: 11-19-2023 Bamboo flowsheet Jacky Velazquez nce [employer] [facility] Start: 11-19-2023 End: 11-19-2023 ambulatory JACKY CLINE Not Available Start: 11-15-2023 End: 11-15-2023 ambulatory JACKY CLINE Not Available Start: 11-15-2023 End: 11-15-2023 ambulatory Jacky Cline [employer] [facility] Comment on above: DDD (degenerative di sc disease), lumbar (Primary Dx); DDD (degenerative disc disease), thoracic Start: 11-13-2023 End: 11-13-2023 ambulatory JACKY CLINE Not Available Start: 11-12-2023 End: 11-12-2023 ambulatory ISRAEL LOPEZ Facility:[facility] Start: 11-09-2023 End: 11-09-2023 ambulatory JACKY CLINE Not Available Start: 11-09-2023 End: 11-09-2023 ambulatory Jacky Cline [employer] [facility] Comment on above: DDD (degenerative di sc disease), lumbar (Primary Dx); DDD (degenerative disc disease), thoracic Start: 11-08-2023 End: 11-08-2023 ambulatory INNA KOO Not Available Start: 11-06-2023 End: 11-06-2023 ambulatory JACKY CLINE Not Available Start: 11-02-2023 End: 11-02-2023 ambulatory JACKY CLINE Not Available Start: 10-31-2023 End: 10-31-2023 ambulatory JACKY CLINE Not Available Start: 10-29-2023 End: 10-29-2023 ambulatory VAISHALI HENDRICKS Not Available Start: 10-26-2023 End: 10-26-2023 ambulatory JACKY CLINE Not Available Start: 10-24-2023 End: 10-24-2023 ambulatory MORENA GILLIS Not Available Start: 10-16-2023 End: 10-17-2023 ambulatory JOHN HIGGINS Not Available Start: 10-09-2023 End: 10-10-2023 ambulatory REBECA SIUER Not Available Start: 09-24-2023 End: 09-24-2023 ambulatory INNA KOO Not Available Start: 09-06-2023 End: 09-06-2023 ambulatory WENDY CHINCHILLA Not Available Start: 08-27-2023 End: 08-27-2023 ambulatory Julien Ronald Other [facility] Other Start: 08-27-2023 Office outpatient vi sit 15 minutes Julien Ronald [facility] Start: 08-21-2023 End: 08-21-2023 ambulatory REBECA Ashby SHARON Not Available Start: 08-10-2023 End: 08-10-2023 ambulatory ELICIA REDD Facility:[facility] Start: 08-10-2023 End: 08-10-2023 Patient encounter procedure Ester Burrell, [facility] Work Phone: Audiology Comment on above: Other specified hear ing loss, unspecified ear (Primary Dx); Type 2 diabetes mellitus with stage 3a chronic kidney disease, without long-term current use of insulin (HCC) Bilateral high frequ ency sensorineural hearing loss (Primary Dx); Oral lesion Start: 06-14-2023 Orders Only Elicia Gunderson son [employer] Work Phone: [facility] Comment on above: Other specified hear ing loss, unspecified ear (Primary Dx) Start: 02-12-2023 End: 02-13-2023 ambulatory JULIEN RONALD Facility: Start: 12-26-2022 End: 12-26-2022 ambulatory Jignesh Sargent Other [facility] Other Start: 12-26-2022 Patient encounter procedure Jignesh Sargent [facility] Start: 10-12-2022 End: 10-12-2022 ambulatory Julien Ronald Other [facility] Other Start: 10-12-2022 Telephone encounter Julien Ronald [facility] Start: 08-30-2022 End: 08-30-2022 ambulatory MD Wendy Chinchilla Work Phone: [facility] Work Phone: Start: 08-30-2022 End: 08-30-2022 Patient encounter procedure MD Wendy Chinchilla Work Phone: [facility] Start: 2022 End: 08-30-2022 ambulatory JIGNESH SARGENT Facility:[facility] Start: 08-22-2022 End: 08-22-2022 ambulatory Jignesh Sargent Other [facility] Other Start: 08-22-2022 [facility] visit new patient Jignesh Sargent [facility] Start: 08-14-2022 End: 08-14-2022 ambulatory Julien Ronald Other [facility] Other Start: 08-14-2022 Office outpatient vi sit 25 minutes Julien Ronald [facility] Start: 08-08-2022 End: 08-09-2022 ambulatory JULIEN RONALD Facility:[facility] Start: 02-13-2022 End: 02-13-2022 ambulatory Julien Ronald Other [facility] Other Start: 02-13-2022 Office outpatient vi sit 15 minutes Julien Ronald [facility] Start: 11-23-2021 End: 11-23-2021 ambulatory Julien Ronald Other [facility] Other Start: 11-23-2021 Telephone encounter Julien Ronald [facility] Start: 08-10-2021 End: 08-10-2021 ambulatory Julien Ronald Other [facility] Other Start: 08-10-2021 Office outpatient vi sit 15 minutes Julien Ronald [facility] Procedures Date Procedure Procedure Detail Performing Clinician Start: 01-03-2024 Ultrasound elastogra phy of liver MD Wendy Chinchilla Work Phone: Start: 10-09-2023 Mammography Jacky Duggan [employer] Start: 08-10-2023 HEARING TEST/AUDIOGRAM Ester Quezada Tre AuD, CCC-A Work Phone: Start: 04-27-2023 History of operative procedure on knee History of knee surgery Jacky Cline [employer] Start: 08-30-2022 Ultrasound elastogra phy of liver MD Wendy Chinchilla Work Phone: Start: 08-05-2020 Colonoscopy Jacky Duggan [employer] Plan of Treatment Date Care Activity Detail Author Start: 08-05-2030 Screening for malign ant neoplasm of colon [facility] Start: 05-15-2029 Urine microalbumin profile DTaP,Tdap,Td Vaccine (6 - Td or Tdap) [facility] Start: 10-30-2025 Glaucoma screening Diabetes: R etinopathy Screening [facility] Start: 10-09-2024 Screening for malign ant neoplasm of breast Mammogram [facility] Start: 08-21-2024 Medicare Annual Wellness (AWV) Medicare Annual Wellness (AWV) [facility] Start: 07-21-2024 End: 07-21-2024 Patient encounter procedure 07/21/2024 9:20 AM EDT Office Visit [facility] [address] [place] [address] Inna Koo, [employer] [address] [place] [address] [facility] Start: 05-16-2024 End: 05-16-2024 Patient encounter procedure 05/16/2024 9:30 AM EDT Office Visit [facility] [address] [place] [id number] Vipul Richards PA [address] [place] [address] [facility] Start: 01-03-2024 [facility] Start: 12-07-2023 End: 12-07-2023 Patient encounter procedure 12/07/2023 9:30 AM EST Office Visit [facility] [address] [place] [address] Wendy Chinchilla MD [address] [place] [address] [facility] Start: 12-06-2023 Hemoglobin A1c measurement Diabetes: Hemoglobin A1C [facility] Start: 12-06-2023 Hemoglobin A1c/Hemoglobin.total in Blood HbA1C [facility] Start: 11-27-2023 End: 11-27-2023 Patient encounter procedure 11/27/2023 9:30 AM EST Office Visit [facility] [address] [place] [address] John Higgins, DO [address] [place] [address] [facility] Start: 11-26-2023 End: 11-26-2023 ambulatory 11/26/2023 10:30 AM EST Treatment [facility] [address] [place] [address] Morena Gillis, PT [address] [place] [address] [facility] Start: 11-21-2023 End: 11-21-2023 ambulatory [facility] Start: 11-19-2023 End: 11-19-2023 ambulatory [facility] Comment on above: Arrived Start: 11-15-2023 End: 11-15-2023 ambulatory 11/15/2023 12:30 PM EST Treatment [facility] [address] [place] [address] Jacky Cline PTA [facility] Start: 11-13-2023 End: 11-13-2023 ambulatory 11/13/2023 10:30 AM EST Treatment [facility] [address] [place] [address] Jacky Cline, [employer] [facility] Start: 06-08-2023 Influenza vaccination C [facility] Start: 10-08-2022 ADVANCE DIRECTIVE DISCUSSION ADVANCE DIRECTIVE DISCUSSION [facility] Start: 10-08-2022 DEPRESSION ASSESSMENT DEPRESSION ASS ESSMENT [facility] [facility] Start: 08-30-2022 [facility] Start: 2017 BONE DENSITY BONE DENSITY [facility] Start: 2017 Bone Density Screening Bone Density Screening [facility] Start: 2017 PNEUMOCOCCAL: 65+ (1 - PCV) PNEUMOCOCCAL: 65+ (1 - PCV) [facility] Start: 2012 Hepatitis B Vaccine (1 of 3 - Risk 3-dose series) Hepatitis B Vaccine (1 of 3 - Risk 3-dose series) [facility] Start: 2012 RSV Vaccine (1 - 1-d ose 60+ series) RSV Vaccine (1 - 1-dose 60+ series) [facility] Start: 2002 SHINGRIX VACCINE (1 of 2) SHINGRIX VACCINE (1 of 2) [facility] Start: 1997 COLOGUARD (FIT-DNA) COLOGUARD (FIT-D NA) [facility] Start: 1997 Colonoscopy COLONOSCOPY [facility] Start: 1997 COLORECTAL CANCER SCREENING COLORECTAL CANCER SCREENING [facility] Start: [address] COLONOGRAPHY [facility] Start: 1997 DIABETES SCREEN DIABETES SCREEN [facility] Start: 1997 FECAL OCCULT BLOOD FECAL OCCULT BLOO D [facility] Start: 1997 LIPID SCREEN LIPID SCREEN [facility] Start: 1997 SIGMOIDOSCOPY SIGMOIDOSCOPY [facility] Start: 1992 Mammography [facility] Start: 1971 Urine microalbumin profile DTAP,TDAP,TD (1 - Tdap) [facility] Start: 1970 Annual PCP Team Mortar [employer] vicky Disease Visit Annual PCP Team Chronic Disease Visit [facility] Start: 1970 BP Controlled (<130/80) BP Controlle d (<130/80) [facility] Start: 1970 Hemoglobin/Hematocrit Hemoglobin/Hem atocrit [facility] Start: 1970 Hepatitis B surface antibody level LDL Cholesterol [facility] Start: 1970 HEPATITIS C SCREENING HEPATITIS C SC REENING [facility] Start: 1970 Serum Creatinine Serum Creatinine Cl [facility] Start: 1962 3 comp foot exam completed Diabetic Foot Exam [facility] Start: 1962 Hepatitis B screening Urine Albumin:Creatinine Ratio [facility] Start: 1962 Hepatitis C antibody , confirmatory test Dilated Retinal Exam [facility] Start: 02-26-1953 COVID-19 VACCINE (#1) COVID-19 VACCI NE (#1) [facility] Start: 1952 Screening for malign ant neoplasm of colon [facility] End: 06-14-2024 HEARING TEST/AUDIOGRAM HEARING TEST/AUDIOGRAM Audiology Routine Other specified hearing loss, unspecified ear 1 Occurrences starting 06/14/2023 until 06/14/2024 [facility] Work Phone: Comment on above: 1 Occurrences starti ng 06/14/2023 until 06/14/[facility] Immunization Date Immunization Notes Care Provider Kash enriquez 09-06-2023 Influenza, High-dose Seasonal, Quadrivalent, Preservative Free Jacky Cline [facility] 06-30-2022 influenza, high dose seasonal, preservative-free Jacky Cline [facility] 06-30-2022 Influenza, High-dose Seasonal, Quadrivalent, Preservative Free Jacky Cline [facility] 11-17-2021 pneumococcal polysaccharide vaccine, 23 valent Jacky Cline [facility] 10-04-2021 Influenza, Seasonal, Quadrivalent, Adjuvanted Jacky Cline [facility] 10-04-2021 influenza virus vaccine, unspecified formulation Ester Burrell, [facility] Work Phone: [facility] 08-09-2020 zoster vaccine recombinant Jacky Cline [facility] 06-07-2020 influenza, injectabl e, quadrivalent, preservative free Jacky Cline [facility] 05-21-2020 influenza, injectabl e, quadrivalent, preservative free Jacky Cline [facility] 05-21-2020 zoster vaccine recombinant Jacky Cline [facility] 06-25-2019 influenza, high dose seasonal, preservative-free Jacky Cline [facility] 05-15-2019 tetanus toxoid, redu kisha diphtheria toxoid, and acellular pertussis vaccine, adsorbed Jacky Cline [facility] 03-31-2019 tetanus and diphther ia toxoids, adsorbed, preservative free, for adult use (5 Lf of tetanus toxoid and 2 Lf of diphtheria toxoid) Jacky Cline [facility] 03-31-2019 tetanus toxoid, redu kisha diphtheria toxoid, and acellular pertussis vaccine, adsorbed Julien Ronald Other [employer] [facility] Other 07-04-2018 Seasonal trivalent influenza vaccine, adjuvanted, preservative free Jacky Cline [facility] 02-07-2018 pneumococcal conjuga te vaccine, 13 valent Jacky Cline [facility] 06-18-2017 influenza, injectabl e, quadrivalent, preservative free Jacky Cline [facility] 05-21-2017 influenza, injectabl e, quadrivalent, preservative free Jacky Cline [facility] 08-04-2016 influenza, injectabl e, quadrivalent, preservative free Jacky Cline [facility] 06-19-2016 pneumococcal polysaccharide vaccine, 23 valent Jacky Cline [facility] 08-31-2015 influenza, seasonal, injectable, preservative free Jacky Cline [facility] 07-20-2015 influenza, seasonal, injectable Julien Ronald Other [employer] [facility] Other 03-12-2015 zoster vaccine, live Jacky Cline [facility] 07-13-2014 influenza, seasonal, injectable, preservative free Jacky Cline [facility] 08-18-2013 influenza virus vaccine, whole virus Jacky Cline [facility] 08-08-2013 seasonal influenza, intradermal, preservative free Jacky Cline [facility] 07-25-2012 influenza, seasonal, injectable, preservative free Jacky Cline [facility] 07-12-2009 diphtheria, tetanus toxoids and pertussis vaccine Jacky Cline [facility] 07-12-2009 tetanus toxoid, redu kisha diphtheria toxoid, and acellular pertussis vaccine, adsorbed Jacky Cline [facility] Healthcare Payers Date Payer Category Payer Self-pay [id number] 2023 Unknown [employer] D [employer] [id number] 2023-Present [address] [place] [id number] [id number] 2022 Medicare DEVOTED MEDICARE [employer] [place] PPO [id number] 2022-Present [phone] [address] [place] [address] PPO [id number] 2021 Unknown [id number] 1959 Medicare [id number] [id number] 1959 Private Health Insurance [id number] 2.16.840.1.521993.19 1952 Unknown [id number] 2.16.840.1.255588.3.579. 2.593 1952 Unknown [id number] 2.16.840.1.191756.3.579. 2.593 1952 Unknown [id number] 2.16.840.1.196517.3.579. 2.593 1952 Unknown [id number] 2.16.840.1.292906.3.579. 2.1259 1952 Unknown [id number] 2.16.840.1.050382.3.579. 2.1259 1952 Unknown [id number] 2.16.840.1.742230.3.579. 2.1259 1952 Unknown [id number] 2.16.840.1.605487.3.579. 2.1259 1952 Unknown [id number] 2.16.840.1.026057.3.579. 2.125 1952 Unknown [id number] 2.16.840.1.611482.3.579. 2.1258 1952 Unknown [id number] 2.16.840.1.671408.3.579. 2.125 1952 Unknown [id number] 2.16.840.1.538306.3.579. 2.125 1952 Unknown [id number] 2.16.840.1.231549.3.579. 2.1258 1952 Unknown [id number] 2.16.840.1.228268.3.579. 2.1258 1952 Unknown [id number] 2.16.840.1.191167.3.579. 2.1258 1952 Unknown [id number] 2.16.840.1.252901.3.579. 2.1258 1952 Unknown [id number] 2.16.840.1.900672.3.579. 2.1258 1952 Unknown [id number] 2.16.840.1.329234.3.579. 2.1258 1952 Unknown [id number] 2.16.840.1.996044.3.579. 2.125 1952 Unknown [id number] 2.16.840.1.275145.3.579. 2.125 1952 Unknown [id number] 2.16.840.1.727043.3.579. 2.1258 1952 Unknown [id number] 2.16.840.1.961288.3.579. 2.125 1952 Unknown [id number] 2.16.840.1.690534.3.579. 2.1259 1952 Unknown [id number] 2.16.840.1.360676.3.579. 2.1259 1952 Unknown [id number] 2.16.840.1.082889.3.579. 2.1259 Private Health Insurance [facility] [id number] Unknown [id number] 2.16.840.1.478578.3.579. 2.531 Unknown [id number] 2.16.840.1.579426.3.579. 2.531 Social History Date Type Detail Facility Unknown if ever smoked [employer] Other Start: 04-27-2023 End: 08-21-2023 Sex Assigned At [employer] Other Start: 1950 Sex Assigned At Female [facility] Tobacco smoking stat [facility] Tobacco smoking consumption unknown [facility] Start: 1950 Sex Assigned At Not on file [facility] Start: 05-29-2023 Gender identity Identifies as female gender (finding) [facility] Start: 06-15-2023 Sexual orientation Heterosexual (finding) [facility] Start: 06-27-2018 End: 04-27-2023 Tobacco smoking status [facility] Never smoked tobacco [facility] Start: 04-27-2023 Tobacco use and exposure Smokeless tobacco non-user [facility] Start: 11-08-2023 Alcohol intake Ex-drinker (finding) [facility] Start: 04-27-2023 End: 08-21-2023 History of Social function [facility] How often to you hav e a drink containing alcohol? Never [facility] How many standard drinks containing alcohol do you have on a typical day? Patient does not drink [facility] Start: 05-16-2023 Alcohol Comment Caffeine intake: 1-2 cups per day coffee [facility] Medical Equipment Procedure Code Equipment Code Equipment Origin al Text Equipment Identifier Dates Lancets (OneTouc h Delica Plus [id number]) misc [id number] Start: 04-07-2023 OneTouch Verio t est strip [id number] Goals Date Patient Goal Desired Activity /State Clinical Notes 08-10-2021 to 11-12-2023 Note Date & Type Note Facility 11-12-2023 Note HNO ID: [id number] Author: ISRAEL LOPEZ MD Service: ? Author Type: Physician Type: Progress Notes Filed: 11/12/2023 10:31 Note Text: History: Vivian Vizcaino, a 73 year old female, presents for evaluation of L buccal spot noted by dentist 2-3 y ago. Does not appreciate. No pain or bleeding. Denies difficulty swallowing solids and liquids, throat irritation/swelling, pain with swallowing, hoarseness, shortness of breath, cough, hemoptysis, ear pain, throat clearing, throat phelgm, post-nasal drip, fever, chills, weight loss. No history of thyroid disease/surgery. The patient does not smoke. The patient does not drink alcohol. PAST MEDICAL HISTORY Diagnosis Date CKD (chronic kidney disease) stage 3, GFR 30-59 ml/min ([facility]) DM type 2 (diabetes mellitus, type 2) ([facility]) HTN (hypertension) Hypothyroidism Mixed hyperlipidemia Overactive bladder PSH: B knee PE: Alert; oriented; well-developed; no apparent distress. Normal voice; normal communication. Eyes: EOMI, pupils symmetric and reactive bilaterally. Nose: patent, normal mucosa, no congestion, no rhinorrhea. Oral cavity, oropharynx: Normal linea alba. No lesion. No ulcerative or mass lesions, tongue midline, palate elevates symmetrically, tongue base and floor of mouth soft. Neck: nontender, no lymphadenopathy or masses. Thyroid: no masses. Face: symmetric, sinuses nontender, skin without lesions. Salivary glands: normal size, nontender, no masses. Ears: EACs free of lesions. TMs clear and mobile. 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 Assessment/Plan: Reassured no apparent oral lesion. 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 F/up prn. Medical Decision Making: Problems: Low: Acute, uncomplicated illness or injury Risk: Minimal: Minimal risk from testing/treatment Medical Decision Making Level: 2 - Straightforward [facility] 08-27-2023 Evaluation note Encounter Date Diagnosis Assessment Notes Aug, Chronic kidney disease, stage III (moderate) (ICD-10 - N18.30) She has CKD due to longstanding HTN. Her serum creatinine fluctuates b/w 0.9-1.1 mg/dl. I have discussed with her the importance of the good blood pressure control to slow down the progression of disease. Aug, Diabetes mellitus with chronic kidney disease (ICD-10 - E11.22) She is currently on metformin. She reported blood sugars has been running better . Continue Farxiga and low-dose of the lisinopril. We will consider finerenone in future if needed. Aug, Hypertensive chronic kidney disease with stage 1 through stage 4 chronic kidney disease, or unspecified chronic kidney disease (ICD-10 - I12.9) Blood pressure is high today but usually well controlled on current regimen. I will continue same medications. Advised her to monitor blood pressure at home and stays above 140 over 90 mmHg then call office. Aug, Vitamin D deficiency (ICD-10 - E55.9) Her calcium, PTH and Vit D are within the goal. Aug, Hematuria, unspecified (ICD-10 - R31.9) She had hematuria. She was seen by Leonel Manuel and underwent cystoscopy which was unremarkable. She also has h/o bladder prolapse and will follow with her AERODYNAMIC CONSULTANT. Aug, Hyperuricemia (ICD-10 - E79.0) She has hyperuricemia due to the CKD. She denies any symptoms we will monitor without medications. [facility] Other 11-03-2023 NoteHNO ID: [id number] Author: Ester Blanca AuD, [facility] Service: ? Author Type: Sales Center Associate Type: Procedures Filed: 08/10/2023 10:00 AM Note Text: [facility] [place] AUDIOLOGIC EVALUATION REPORT Name: Vivian Vizcaino CC#: [id number] Date of Service: 08/10/2023 Date of : 1950 Age: [age] year old Referred by: Elicia Redd [address] [place], [place] [address] [place] [address] Referred for: Evaluation of the cause of disorder of hearing, tinnitus, or balance. Referral documented: In an order in [facility] Patient's major complaints: Hearing Loss/Hearing Problem. Vivian reported she has some trouble hearing/understanding speech and some trouble hearing the dialogue when watching TV unless the volume is louder. Her notices this problem. Patient denies tinnitus. Vivian Vizcaino was seen for an initial audiologic evaluation. See [employer] Audiogram for additional reported history and symptoms. Risk of Falls Documentation for over 65 years old: No history of falls reported so minimal to no risk IMPRESSIONS RIGHT EAR: Hearing within normal limits AND High Frequency Sensorineural Hearing Loss consistent with presbycusis LEFT EAR: Hearing within normal limits AND High Frequency Sensorineural Hearing Loss consistent with presbycusis AUDIOLOGIC EVALUATION Following is a brief interpretation of the obtained findings from the audiologic evaluation. Refer to the Auditory Test Record for complete audiometric results. The patient was counseled about the test findings and appropriate audiologic recommendations were made. SUMMARY: Audiogram can be viewed under Proc tab. OTOSCOPY RIGHT EAR: Otoscopic inspection revealed clear ear canal, Tympanic Membrane intact with an identifiable cone of light. LEFT EAR: Otoscopic inspection revealed clear ear canal, Tympanic Membrane intact with an identifiable cone of light. TYMPANOMETRY Description of procedure: This test is an objective evaluation of middle ear function. CPT code: 44876 RIGHT EAR: Normal ME pressure and TM compliance (mobility). LEFT EAR: Normal ME pressure and TM compliance (mobility). PURE TONE AUDIOMETRY AND SPEECH TESTING Description of procedure: This test is an objective evaluation hearing sensitivity via air and bone conduction and speech recognition testing. CPT code:85163 RIGHT EAR: Hearing Sensitivity: Hearing sensitivity within normal limits except for a moderate High Frequency Sensorineural Hearing Loss at 8K Hz. Word Recognition Score: Excellent (100%). WRS is consistent with hearing sensitivity. Words were presented at 45 dB HL approximates (45-55 dB HL) intensity level for average conversational speech. The NU-6 Ordered by Difficulty Word List (10 words) was used for testing. LEFT EAR: Hearing Sensitivity: Hearing sensitivity within normal limits except for a moderate High Frequency Sensorineural Hearing Loss at 8K Hz. Word Recognition Score: Excellent (100%). WRS is consistent with hearing sensitivity. Words were presented at 45 dB HL approximates (45-55 dB HL) intensity level for average conversational speech. The NU-6 Ordered by Difficulty Word List (10 words) was used for testing. RECOMMENDATIONS 1. ENT consult today with Elicia Redd APRN.FOOT [employer]STER. 2. Recheck as needed. 3. Hearing conservation. Tania Vasquez, [facility]/A Clinical Sales Center Associate VILLANUEVA Abbrev- iation Definition Degree of hearing sensitivity dB range WNL within normal limits WNL 0 - 20 SNHL sensorineural hearing loss Mild 20-40 CHL conductive hearing loss Moderate 40-55 MHL mixed hearing loss Moderately-Severe 55-70 WRS word recognition score Severe 70-90 ME middle ear Profound 90 + TM tympanic [facility]23 NoteHNO ID: [id number] Author: Elicia Redd APRN.FOOT CASTER Service: ? Author Type: Nurse Practitioner Type: Progress Notes Filed: 08/10/2023 1:06 PM Note Text: Ms. Vizcaino is a 72 year old female who comes in for evaluation of hearing loss. She has had a question about her hearing in the past several years. She feels she has more difficulty with communication in noisy environments. She apparently has had a area of whitish lesion in the oral cavity on the left. She states that this was first noticed about 5 months ago by her dentist. They did take photographs of the area and advised her to monitor the area. She denies any ulceration or pain in the area. She denies any other significant oral symptoms. She denies any history of chewing tobacco use, smoking tobacco, or alcohol use. Hearing testing performed today revealed: IMPRESSIONS RIGHT EAR: Hearing within normal limits AND High Frequency Sensorineural Hearing Loss consistent with presbycusis LEFT EAR: Hearing within normal limits AND High Frequency Sensorineural Hearing Loss consistent with presbycusis AUDIOLOGIC EVALUATION Following is a brief interpretation of the obtained findings from the audiologic evaluation. Refer to the Auditory Test Record for complete audiometric results. The patient was counseled about the test findings and appropriate audiologic recommendations were made. SUMMARY: Audiogram can be viewed under Proc tab. OTOSCOPY RIGHT EAR: Otoscopic inspection revealed clear ear canal, Tympanic Membrane intact with an identifiable cone of light. LEFT EAR: Otoscopic inspection revealed clear ear canal, Tympanic Membrane intact with an identifiable cone of light. TYMPANOMETRY Description of procedure: This test is an objective evaluation of middle ear function. CPT code: 14043 RIGHT EAR: Normal ME pressure and TM compliance (mobility). LEFT EAR: Normal ME pressure and TM compliance (mobility). PURE TONE AUDIOMETRY AND SPEECH TESTING Description of procedure: This test is an objective evaluation hearing sensitivity via air and bone conduction and speech recognition testing. CPT code:88229 RIGHT EAR: Hearing Sensitivity: Hearing sensitivity within normal limits except for a moderate High Frequency Sensorineural Hearing Loss at 8K Hz. Word Recognition Score: Excellent (100%). WRS is consistent with hearing sensitivity. Words were presented at 45 dB HL approximates (45-55 dB HL) intensity level for average conversational speech. The NU-6 Ordered by Difficulty Word List (10 words) was used for testing. LEFT EAR: Hearing Sensitivity: Hearing sensitivity within normal limits except for a moderate High Frequency Sensorineural Hearing Loss at 8K Hz. Word Recognition Score: Excellent (100%). WRS is consistent with hearing sensitivity. Words were presented at 45 dB HL approximates (45-55 dB HL) intensity level for average conversational speech. The NU-6 Ordered by Difficulty Word List (10 words) was used for testing. PAST MEDICAL HISTORY Diagnosis Date CKD (chronic kidney disease) stage 3, GFR 30-59 ml/min ([facility]) DM type 2 (diabetes mellitus, type 2) ([facility]) HTN (hypertension) Hypothyroidism Mixed hyperlipidemia Overactive bladder No past surgical history on file. No family history on file. Current Outpatient Medications on File Prior to Visit Medication Sig furosemide (LASIX) 20 mg tablet FARXIGA 10 mg tablet atorvastatin (LIPITOR) 10 mg tablet Take by mouth every 24 hours. oxybutynin ER (DITROPAN XL) 10 mg 24 hr tablet SYNTHROID 100 mcg tablet metFORMIN (GLUCOPHAGE) 500 mg tablet fluticasone (FLONASE) 50 mcg/actuation nasal spray 1 (one) time each day at the same time. Cranberry 400 mg cap Take 400 mg by mouth. Multivitamin capsule Take 1 capsule by mouth every morning. DOCOSAHEXAENOIC ACID ORAL Take by mouth as directed. Calcium Citrate-Vitamin D2 250 mg-2.5 mcg (100 unit) tab Take 1 tablet by mouth every morning. HAIR, SKIN AND NAILS, BIOTIN, ORAL Take by mouth as directed. [id number]-algal oil (METANX, ALGAL OIL,) 3 mg-35 mg-2 mg -90.314 mg cap Take by mouth as directed. No current facility-administered medications on file prior to visit. There are no exam notes on file for this visit. Physical exam: General Appearance: 72 year old female is alert, oriented, not in acute distress. Hearing is grossly normal, voice is clear. There is no tenderness with percussion over the paranasal sinuses. Eyes: PEERLA, extraocular movements are full. Nose: Clean, septum is straight. There are no polyps. There is no discharge. Oropharynx: Teeth are in good repair. In the left buccal mucosa there is a small 1 cm x 1-1/2 cm area of whitish mucosa suspicious for lichen planus without ulceration. Lips, gums, tongue and posterior pharynx are within normal limits. Gag reflex is intact. Nasopharynx: Visualization is limited. Hypopharynx: Visualization is limited. Neck: No masses (more content not included)...[facility] 08-10-2023 Procedure note* Ester Blanca AuD, CCC-A - 08/10/2023 8:17 AM EDT [facility] [place] AUDIOLOGIC EVALUATION REPORT Name: Vivian Vizcaino [facility]#: [id number] Date of Service: 08/10/2023 Date of : 1950 Age: [age] year old Referred by: Elicia Redd [address] [place] [address] [place] [address] Referred for: Evaluation of the cause of disorder of hearing, tinnitus, or balance. Referral documented: In an order in [facility] Patient's major complaints: Hearing Loss/Hearing Problem. Vivian reported she has some trouble hearing/understanding speech and some trouble hearing the dialogue when watching TV unless the volume is louder. Her notices this problem. Patient denies tinnitus. Vivian Vizcaino was seen for an initial audiologic evaluation. See [facility] Audiogram for additional reported history and symptoms. Risk of Falls Documentation for over 65 years old: No history of falls reported so minimal to no risk IMPRESSIONS RIGHT EAR: Hearing within normal limits & High Frequency Sensorineural Hearing Loss consistent with presbycusis LEFT EAR: Hearing within normal limits & High Frequency Sensorineural Hearing Loss consistent with presbycusis AUDIOLOGIC EVALUATION Following is a brief interpretation of the obtained findings from the audiologic evaluation. Refer to the Auditory Test Record for complete audiometric results. The patient was counseled about the test findings and appropriate audiologic recommendations were made. SUMMARY: Audiogram can be viewed under Proc tab. OTOSCOPY RIGHT EAR: Otoscopic inspection revealed clear ear canal, Tympanic Membrane intact with an identifiable cone of light. LEFT EAR: Otoscopic inspection revealed clear ear canal, Tympanic Membrane intact with an identifiable cone of light. TYMPANOMETRY Description of procedure: This test is an objective evaluation of middle ear function. CPT code: 80465 RIGHT EAR: Normal ME pressure and TM compliance (mobility). LEFT EAR: Normal ME pressure and TM compliance (mobility). PURE TONE AUDIOMETRY AND SPEECH TESTING Description of procedure: This test is an objective evaluation hearing sensitivity via air and boneconduction and speech recognition testing. CPT code:54338 RIGHT EAR: Hearing Sensitivity: Hearing sensitivity within normal limits except for a moderate High Frequency Sensorineural Hearing Loss at 8K Hz. Word Recognition Score: Excellent (100%). WRS is consistent with hearing sensitivity. Words were presented at 45 dB HL approximates (45-55 dB HL) intensity level for average conversational speech. The NU-6 Ordered by Difficulty Word List (10 words) was used for testing. LEFT EAR: Hearing Sensitivity: Hearing sensitivity within normal limits except for a moderate High Frequency Sensorineural Hearing Loss at 8K Hz. Word Recognition Score: Excellent (100%). WRS is consistent with hearing sensitivity. Words were presented at 45 dB HL approximates (45-55 dB HL) intensity level for average conversational speech. The NU-6 Ordered by Difficulty Word List (10 words) was used for testing. RECOMMENDATIONS 1. ENT consult today with Elicia Redd APRN.MIGNON. 2. Recheck as needed. 3. Hearing conservation. Tania Vasquez, PUNEET/A [employer] Associate VILLANUEVA Abbrev- iation Definition Degree of hearing sensitivity dB range WNL within normal limits WNL 0 - 20 SNHL sensorineural hearing loss Mild 20-40 CHL conductive hearing loss Moderate 40-55 MHL mixed hearing loss Moderately-Severe 55-70 WRS word recognition score Severe 70-90 ME middle ear Profound 90 + TM tympanic membrane [facility] History of Present illness Narrative* Elicia Redd APRN.MIGNON - 08/10/2023 7:58 AM EDT Ms. Vizcaino is a 72 year old female who comes in for evaluation of hearing loss. She has had a question about her hearing in the past several years. She feels she has more difficulty with communication in noisy environments. She apparently has had a area of whitish lesion in the oral cavity on the left. She states that this was first noticed about 5 months ago by her dentist. They did take photographs of the area and advised her to monitor the area. She denies any ulceration or pain in the area. She denies any other significant oral symptoms. She denies any history of chewing tobacco use, smoking tobacco, or alcohol use. Hearing testing performed today revealed: IMPRESSIONS RIGHT EAR: Hearing within normal limits & High Frequency Sensorineural Hearing Loss consistent with presbycusis LEFT EAR: Hearing within normal limits & High Frequency Sensorineural Hearing Loss consistent with presbycusis AUDIOLOGIC EVALUATION Following is a brief interpretation of the obtained findings from the audiologic evaluation. Refer to the Auditory Test Record for complete audiometric results. The patient was counseled about the test findings and appropriate audiologic recommendations were made. SUMMARY: Audiogram can be viewed under Proc tab. OTOSCOPY RIGHT EAR: Otoscopic inspection revealed clear ear canal, Tympanic Membrane intact with an identifiable cone of light. LEFT EAR: Otoscopic inspection revealed clear ear canal, Tympanic Membrane intact with an identifiable cone of light. TYMPANOMETRY Description of procedure: This test is an objective evaluation of middle ear function. CPT code: 80882 RIGHT EAR: Normal ME pressure and TM compliance (mobility). LEFT EAR: Normal ME pressure and TM compliance (mobility). PURE TONE AUDIOMETRY AND SPEECH TESTING Description of procedure: This test is an objective evaluation hearing sensitivity via air and boneconduction and speech recognition testing. CPT code:13109 RIGHT EAR: Hearing Sensitivity: Hearing sensitivity within normal limits except for a moderate High Frequency Sensorineural Hearing Loss at 8K Hz. Word Recognition Score: Excellent (100%). WRS is consistent with hearing sensitivity. Words were presented at 45 dB HL approximates (45-55 dB HL) intensity level for average conversational speech. The NU-6 Ordered by Difficulty Word List (10 words) was used for testing. LEFT EAR: Hearing Sensitivity: Hearing sensitivity within normal limits except for a moderate High Frequency Sensorineural Hearing Loss at 8K Hz. Word Recognition Score: Excellent (100%). WRS is consistent with hearing sensitivity. Words were presented at 45 dB HL approximates (45-55 dB HL) intensity level for average conversational speech. The NU-6 Ordered by Difficulty Word List (10 words) was used for testing. PAST MEDICAL HISTORY Diagnosis Date CKD (chronic kidney disease) stage 3, GFR 30-59 ml/min ([facility]) DM type 2 (diabetes mellitus, type 2) ([facility]) HTN (hypertension) Hypothyroidism Mixed hyperlipidemia Overactive bladder No past surgical history on file. No family history on file. Current Outpatient Medications on File Prior to Visit Medication Sig furosemide (LASIX) 20 mg tablet FARXIGA 10 mg tablet atorvastatin (LIPITOR) 10 mg tablet Take by mouth every 24 hours. oxybutynin ER (DITROPAN XL) 10 mg 24 hr tablet SYNTHROID 100 mcg tablet metFORMIN (GLUCOPHAGE) 500 mg tablet fluticasone (FLONASE) 50 mcg/actuation nasal spray 1 (one) time each day at the same time. Cranberry 400 mg cap Take 400 mg by mouth. Multivitamin capsule Take 1 capsule by mouth every morning. DOCOSAHEXAENOIC ACID ORAL Take by mouth as directed. Calcium Citrate-Vitamin D2 250 mg-2.5 mcg (100 unit) tab Take 1 tablet by mouth every morning. HAIR, SKIN AND NAILS, BIOTIN, ORAL Take by mouth as directed. [id number]-algal oil (METANX, ALGAL OIL,) 3 mg-35 mg-2 mg -90.314 mg cap Take by mouth as directed. No current facility-administered medications on file prior to visit. There are no exam notes on file for this visit. Physical exam: General Appearance: 72 year old female is alert, oriented, not in acute distress. Hearing is grossly normal, voice is clear. There is no tenderness with percussion over the paranasal sinuses. Eyes: PEERLA, extraocular movements are full. Nose: Clean, septum is straight. There are no polyps. There is no discharge. Oropharynx: Teeth are in good repair. In the left buccal mucosa there is a small 1 cm x 1-1/2 cm area of whitish mucosa suspicious for lichen planus without ulceration. Lips, gums, tongue and posterior pharynx are within normal limits. Gag reflex is intact. Nasopharynx: Visualization is limited. Hypopharynx: Visualization is limited. Neck: No masses palpated. Thyroid is not enlarged. Trachea is in the midline. Ears: Both ear canals are clean. Both TMs are intact and mobile. Marcial is in the midline. Rinne is positive bilaterally. Air conduction is equal bilaterally. Impression: Bilateral high-frequency sensorineural hearing loss. Oral lesion most likely secondary to mild lichen planus without inflammation. Plan of management: Hearing testing was explained to the patient. She is advised to avoid noise exposure and have yearly hearing testing. She is advised to try Kenalog Orabase to the oral lesion twice daily x2 weeks. If this lesion worsens or fails to resolve she will notify my office and further management options would be considered including consultation to consider possible biopsy of this area to rule out leukoplakia. Elicia Redd APRN.FOOT CASTER [facility] Evaluation note* Diagnosis Other specified hearing loss, unspecified ear- Primary Type 2 diabetes mellitus with stage 3a chronic kidney disease, without long-term current use of insulin (HCC) documented in [facility] Evaluation note* Encounter Date Diagnosis Assessment Notes Treatment Notes Treatment Clinical Notes Dec, Fatty liver (ICD-10 - K76.0) Dec, CABELLO (nonalcoholic steatohepatitis) (ICD-10 - K75.81) Repeat fibroscan 1 yr F/u with Mt in 1 yr [facility] Other 02-22-2023 NoteHISTORY: Bone density screening COMPARISON: None available. PROCEDURE: Imaging of the lumbar spine and bilateral hips was obtained for bone density evaluation. FINDINGS: REGION BMD (g/cm??) YOUNG ADULT T-SCORE AGE-MATCHED Z-SCORE LEFT NECK 0.991 1.3 3.1 RIGHT NECK 0.987 1.2 3.0 LUMBAR 1.226 1.6 3.8 The mean BMD and corresponding T-score listed above indicates: Normal Bone Mass and places the patient at no significant risk for fracture. This information can serve as a baseline with which to compare future studies. Recommend follow-up exam in 2 years, sooner as clinically necessary. Comment: The T-score is the primary focus of the interpretation of a patient???s bone mineral density measurement. The T-score is the number of standard deviations and individual is above or below the mean value for a young female having normal bone mass. The WHO defines osteoporosis based on the T-score value: +1.0 to -0.9 : Normal bone mass -1.0 to -2.5 : Osteopenia and thus may be at future risk of fracture. -2.6 to -5.0 : Osteoporosis and at significantly increased risk of fracture. IMPRESSION: NORMAL BONE MASS : TWO YEAR FOLLOW-UP RECOMMENDED Report reported and signed by Estrada Cummins on 11/29/[address] [facility]01-05-2023 Evaluation note* Encounter Date Diagnosis Assessment Notes Treatment Notes Treatment Clinical Notes Oct, Diabetes mellitus with chronic kidney disease (ICD-10 - E11.22) [facility] Other 11-15-2022 Evaluation note* Encounter Date Diagnosis Assessment Notes Treatment Notes Treatment Clinical Notes Aug, Elevated liver enzymes (ICD-10 - R74.8) [facility] Other 11-07-2022 Evaluation note* Encounter Date Diagnosis Assessment Notes Treatment Notes Treatment Clinical Notes Aug, Chronic kidney disease, stage III (moderate) (ICD-10 - N18.30) She has CKD due to longstanding HTN. Her serum creatinine fluctuates b/w 0.9-1.1 mg/dl. I have discussed with her the importance of the good blood pressure control to slow down the progression of disease. She has no absolute contraindication for CTA of coronaries from renal standpoint. She needs to adequately hydrate herself before and after the contrast avoid contrast-induced nephropathy. I explained to her possible risk of AYANNA. She understood and verbalized information. I have advised her to hold the metformin and lisinopril on the day of the testing. Aug, Diabetes mellitus with chronic kidney disease (ICD-10 - E11.22) She is currently on metformin. She reported blood sugars has been running high. I have advised her to discuss with the PCP about SGLT2 inhibitors including Farxiga and Jardiance. She may benefit with these medication to slow down the progression of CKD. I have also prescribed low-dose of the lisinopril. We will consider finerenone in future if needed. Aug, Hypertensive chronic kidney disease with stage 1 through stage 4 chronic kidney disease, or unspecified chronic kidney disease (ICD-10 - I12.9) Blood pressure is well controlled on current regimen. I will continue same medications. Aug, Vitamin D deficiency (ICD-10 - E55.9) Her calcium, PTH and Vit D are within the goal. Aug, Hematuria, unspecified (ICD-10 - R31.9) She had hematuria. She was seen by Leonel Manuel and underwent cystoscopy which was unremarkable. She also has h/o bladder prolapse and will follow with her AERODYNAMIC CONSULTANT. Aug, Hyperuricemia (ICD-10 - E79.0) She has hyperuricemia due to the CKD. She denies any symptoms we will monitor without medications. [facility] Other 05-09-2022 Evaluation note* Encounter Date Diagnosis Assessment Notes Treatment Notes Treatment Clinical Notes February, Hypertensive chronic kidney disease with stage 1 through stage 4 chronic kidney disease, or unspecified chronic kidney disease (ICD-10 - I12.9) Blood pressure is well controlled on current regimen. I will continue same medications. February, Chronic kidney disease, stage III (moderate) (ICD-10 - N18.30) She has CKD due to longstanding HTN. Her serum creatinine fluctuates b/w 0.9-1.1 mg/dl. I have discussed with her the importance of the good blood pressure control to slow down the progression of disease. February, Vitamin D deficiency (ICD-10 - E55.9) Her calcium, PTH and Vit D are within the goal. February, Hematuria, unspecified (ICD-10 - R31.9) She had hematuria. She was seen by Leonel Manuel and underwent cystoscopy which was unremarkable. She also has h/o bladder prolapse and will follow with her AERODYNAMIC CONSULTANT. February, Hyperglycemia (ICD-10 - R73.9) She has a fasting blood sugar above 126 mg/dL possibly she has diabetes I have advised her to monitor her blood sugars and follow with PCP. She can be started on Metformin or SGLT2 inhibitors like farxiga if needed [facility] Other 02-16-2022 Evaluation note* Encounter Date Diagnosis Assessment Notes Treatment Notes Treatment Clinical Notes Nov, Hypertensive chronic kidney disease with stage 1 through stage 4 chronic kidney disease, or unspecified chronic kidney disease (ICD-10 - I12.9) Nov, Chronic kidney disea se, stage III (moderate) (ICD-10 - N18.30) Nov, Secondary hyperparathyroidism (ICD-10 - N25.81) [facility] Other 11-03-2021 Evaluation note* Encounter Date Diagnosis Assessment Notes Treatment Notes Treatment Clinical Notes Aug, CKD (chronic kidney disease) stage 3, GFR 30-59 ml/min (ICD-10 - N18.3) She has CKD due to longstanding HTN. Her serum creatinine fluctuates b/w 1.1-1.4 mg/dl. I have discussed with her the importance of the good blood pressure control to slow down the progression of disease. Aug, Hypertensive chronic kidney disease with stage 1 through stage 4 chronic kidney disease, or unspecified chronic kidney disease (ICD-10 - I12.9) Blood pressure is well controlled on current regimen. I will continue same medications. Aug, Vitamin D deficiency (ICD-10 - E55.9) Her calcium, PTH and Vit D are within the goal. Aug, Hematuria, unspecified (ICD-10 - R31.9) She had hematuria. She was seen by Leonel Manuel and underwent cystoscopy which was unremarkable. She also has h/o bladder prolapse and will follow with her AERODYNAMIC CONSULTANT. Aug, Hyperglycemia (ICD-10 - R73.9) She has a fasting blood sugar above 110 mg/dL possibly she has prediabetes I have advised her to monitor her blood sugars and follow with PCP. [facility] Other Evaluation noteNo assessment information available [facility] Work Phone: Evaluation note* Diagnosis Other specified hearing loss, unspecified ear- Primary [facility]* Diagnosis Bilateral high frequency sensorineural hearing loss- Primary Sensorineural hearing loss, bilateral Oral lesion Other and unspecified diseases of the oral soft tissues [facility]* Diagnosis DDD (degenerative disc disease), lumbar- Primary Degeneration of lumbar or lumbosacral intervertebral disc DDD (degenerative disc disease), thoracic Degeneration of thoracic or thoracolumbar intervertebral disc [facility]* Diagnosis DDD (degenerative disc disease), lumbar- Primary Degeneration of lumbar or lumbosacral intervertebral disc DDD (degenerative disc disease), thoracic Degeneration of thoracic or thoracolumbar intervertebral disc documented in [facility] encounter [facility]* Diagnosis DDD (degenerative disc disease), lumbar- Primary Degeneration of lumbar or lumbosacral intervertebral disc DDD (degenerative disc disease), thoracic Degeneration of thoracic or thoracolumbar intervertebral disc documented in [facility] encounter [facility]* Diagnosis Type 2 diabetes mellitus without complication, without long-term current use of insulin ([facility]) documented in this encounter [facility] HealthcareHistory general Narrative - Reported* Type Description Date Medical History Hypothyroidism Medical History hypertension Medical History hypercholesterolemia Medical History diabetes mellitus Medical History kidney disease Surgical History knee replacement, L & R Surgical History hysterectomy Surgical History gall bladder Surgical History diskectomy, in neck Surgical History rotator cuff, bilteral Surgical History carpal tunnel release, R Surgical History trigger finger release, R Surgical History colonoscopy Surgical History laparoscopy Surgical History Carpal tunnel release in Lt 201 8 Surgical History RIGHT KNEE REPLACEMENT 07/2018 Surgical History CATARACTS REMOVED BILATERAL Hospitalization History see above [facility] Other History general Narrative - Reported* Type Description Date Medical History Hypothyroidism Medical History hypertension Medical History hypercholesterolemia Medical History diabetes mellitus Medical History kidney disease Medical History ELEVATED LIVER ENZYMES SEEING GI DOCTOR SOON Surgical History knee replacement, L & R Surgical History hysterectomy Surgical History gall bladder Surgical History diskectomy, in neck Surgical History rotator cuff, bilteral Surgical History carpal tunnel release, R Surgical History trigger finger release, R Surgical History colonoscopy Surgical History laparoscopy Surgical History Carpal tunnel release in Lt 201 8 Surgical History RIGHT KNEE REPLACEMENT 07/2018 Surgical History CATARACTS REMOVED BILATERAL Hospitalization History see above [facility] Other Chief Complaint and Reason for Visit Chief Complaint Elevated Liver Enzym es Chief Complaint n75.81 Chief Complaint n75.81 Fatty Liver Advance Directives No Advanced Directives Records Found Advance Directive Response Recorded Date/ Time Advance Directives No August 10:18am Advance Directive Response Recorded Date/ Time Advance Directives No August 11:18am Summary Purpose Family History No Family History Records Found Relationship Condition Age at Onset Recorded Date/T marcos brother Malignant neoplasm Unknown Family history of emphysema Unknown father Diabetes mellitus Unknown Family history of mental disorder Unknown Unknown family member Family history of other condition Unknow n Not Specified Hypertension Unknown Heart disease Unknown Malignant neoplasm Unknown Diabetes mellitus Unknown Reason for Referral Specialty Diagnoses / [facility] Diagnoses Other specified hearing loss, unspecified ear Procedures HEARING TEST/AUDIOGRAM COMPRE AUDIOMETRY THRESHOLD EVAL SP Elicia Payan, NIGHT CLEANER.FOOT CASTER [address] [facility] [address] [facility] [place] [address] [facility] [address] [place] [address] Referral ID Status Reason Start Date Expiration Date Visits Requested Visits Authorized [id number] Authorized Auto-Generat ed Referral 06/14/2023 06/14/2024 1 1 Additional Source Comments REASON FOR VISIT (unrecogniz ed section and content) Specialty Diagnoses / Procedures [facility] To Contact Diagnoses Other specified hearing loss, unspecified ear Procedures HEARING TEST/AUDIOGRAM COMPRE AUDIOMETRY THRESHOLD EVAL SP Elicia Payan, NIGHT CLEANER.FOOT CASTER [address] [facility] [place] [address] [facility] [address] [place] [address] Referral ID Status Reason Start Date Expiration Date V isits Requested Visits Authorized [id number] Closed Auto-Generate d Referral 06/14/2023 06/14/2024 1 1 Reason Comments Hearing Loss Specialty Diagnoses / Procedures [facility]erred To Contact Physical Therapy Diagnoses DDD (degenerative disc disease), lumbar Procedures IA OFFICE/OUTPATIENT NEW HIGH MDM 60 MINUTES John Higgins, DO [address] [facility] [address] [place] [address] Morena Gillis, PT [address] [facility] [address] [place] [address] Referral ID Status Reason Start Date Expiration Date Visits Requested Visits Authorized [id number] Authorized Consult and Treat 10/16/2023 04/13/2024 99 99 Reason Onset Date Comments Med Refill 11/19/2023 Care Teams (unrecognized sec tion and content) Team Status: Inactive Member Role Status Dates Wendy Chinchilla MD Primary Care Provider Active Jignesh Sargent MD Attending Provider Active Team Status: Active Member Role Status Dates Wendy Chinchilla MD Primary Care Provider Active Route Returner Relationship Specialty Start Date End Date Wendy Chinchilla MD [address] [place] [address] PCP - [facility] 10/08/22 Wendy Chinchilla MD [address] [place] [address] PCP - General Family Medicine 02/23/23 Route Returner Relationship Specialty Start Date End Date Wendy Chinchilla MD [address] [place] [address] PCP - [facility] 10/08/22 Wendy Chinchilla MD [address] [place] [address] PCP - General Family Medicine 02/23/23 Route Returner Relationship Specialty Start Date End Date Wendy Chinchilla MD [address] [place] [address] PCP - [facility] 10/08/22 Wendy Chinchilla MD [address] [place] [address] PCP - General Family Medicine 02/23/23 Route Returner Relationship Specialty Start Date End Date Wendy Chinchilla MD [address] [place] [address] PCP - [facility] 10/08/22 Wendy Chinchilla MD [address] [facility] [place] [address] PCP - General Family Medicine 02/23/23 Route Returner Relationship Specialty Start Date End Date Wendy Chinchilla MD [address] [facility] [place] [address] PCP - [facility] 10/08/22 Wendy Chinchilla MD [address] [facility] [place] [address] PCP - General Family Medicine 02/23/23 Team Status: Active Member Role Status Dates Wendy Chinchilla MD Primary Care Provide r Active Team Status: Inactive Member Role Status Dates Wendy Chinchilla MD Primary Care Provider Active Start: December 27, 2023 End: December 27, 2023 Mt Hernandez APRN Attending Provider Active Start: December 27, 2023 End: December 27, 2023 Team Status: Inactive Member Role Status Dates Wendy Chinchilla MD Primary Care Provider Active Start: January 03, 2024 End: January 03, 2024 Temporary Fibroscan Attending Provider Active St art: January 03, 2024 End: January 03, 2024 Goals (unrecognized section and content) Goals may be documented in a n alternate section INFORMATION SOURCE (unrecogn ized section and content) DATE CREATED AUTHOR 11/30/2022 [facility] Me dical Specialist DATE CREATED AUTHOR AUTHOR'S ORGANIZ ATION 02/16/2023 [facility] DATE CREATED AUTHOR AUTHOR'S ORGANIZ ATION 11/12/2023 [facility] DATE CREATED AUTHOR AUTHOR'S ORGANIZ ATION 12/09/2023 [facility] dical Specialists EPIC DATE CREATED AUTHOR AUTHOR'S ORGANIZ ATION 01/23/2024 [facility] y[facility] Source Comments (unrecognize d section and content) In the event this informatio n is protected by the Federal Confidentiality of Alcohol and Drug Abuse Patient Records regulations: The Federal rules restrict any use of the information to criminally investigate or prosecute any alcohol or drug abuse patient.[facility] the event this information is protected by the Federal Confidentiality of Alcohol and Drug Abuse Patient Records regulations: The Federal rules restrict any use of the information to criminally investigate or prosecute any alcohol or drug abuse patient.[facility] the event this information is protected by the Federal Confidentiality of Alcohol and Drug Abuse Patient Records regulations: The Federal rules restrict any use of the information to criminally investigate or prosecute any alcohol or drug abuse patient.[facility] FOR RECORDS PERTAINING TO PATIENTS WHO ARE OR HAVE BEEN ENROLLED IN A CHEMICAL DEPENDENCY/SUBSTANCEABUSE PROGRAM, SOME INFORMATION MAY BE OMITTED. This clinical summary was aggregated from multiple sources. Caution should be exercised in using it in the provision of clinical care. This summary normalizes information from multiple sources, and as a consequence, information in this document may materially change the coding, format and clinical context of patient data. In addition, data may be omitted in some cases. CLINICAL DECISIONS SHOULD BE BASED ON THE PRIMARY CLINICAL RECORDS. [facility] [employer] [facility]. provides no warranty or guarantee of the accuracy or completeness of information in this document.
[2024-02-07 09:48] LABS: Hematocrit 44.1 % (36.0-48.0); Hemoglobin 14.1 g/dL (12.0-16.0); Mean Corpuscular Hemoglobin 27.9 pg (26.7-34.0); Mean Corpuscular Volume 87.2 fL (81.0-99.0); Mean Platelet Volume 9.3 fL (9.5-13.5); Platelet Count 213 10^3/uL (150-450); Red Blood Count 5.06 10^6/uL (4.20-5.40); Red Cell Distribution Width 14.3 % (11.0-15.0); White Blood Count 8.2 10^3/uL (4.0-11.0)
[2024-02-07 10:00] LABS: Bilirubin Urine NEGATIVE (NEGATIVE); Blood Urine NEGATIVE (NEGATIVE); Clarity Urine CLEAR (CLEAR); Color Urine YELLOW (YELLOW); Glucose Urine UA 500 mg/dL (NEGATIVE); Ketones Urine NEGATIVE (NEGATIVE); Leukocyte Esterase Urine NEGATIVE (NEGATIVE); Nitrite Urine NEGATIVE (NEGATIVE); Protein Urine NEGATIVE (NEG/TRACE); Specific Gravity Urine 1.025 (1.005-1.025); Urobilinogen Urine 0.2 EU/dL (0.2-1.0); pH Urine 5.5 (5.0-9.0)
[2024-02-07 10:05] LABS: Creatinine Urine Random 122.19 mg/dL (20.00-300.00); Total Protein Urine Random 11.8 mg/dL (<=11.9)
[2024-02-07 10:15] LABS: RBC Urine 0-2 #/HPF (0-2)
[2024-02-07 10:16] LABS: Bacteria Urine LARGE #/HPF (NONE SEEN); Mucus Urine SMALL (NONE SEEN); Squamous Epithelial Cell Urine MODERATE #/LPF (NONE/RARE)
[2024-02-07 10:28] LABS: Albumin Level 3.7 g/dL (3.4-5.0); Anion Gap 12.5; BUN Creatinine Ratio 21.4; Calcium 9.9 mg/dL (8.5-10.1); Carbon Dioxide 30.3 mmol/L (21.0-32.0); Chloride 101 mmol/L (98-107); Estimated GFR (African America >60 (>=60); Estimated GFR (Non-African Ame 53 (>=60); Glucose 142 mg/dL (74-106); Phosphorus 4.7 mg/dL (2.6-4.7); Potassium 3.8 mmol/L (3.5-5.1); Sodium 140 mmol/L (136-145); Uric Acid 6.2 mg/dL (2.6-6.0)
[2024-02-08 13:09] LABS: PTH, Intact 15 pg/mL (15-65)
== END 2024-02-07 09:22 | disposition home or self-care (01) ==
LOC: LAB 09:23
PROVIDERS: PCP Family Medicine; Visit Provider Internal Medicine
DX: E11.22 Type 2 diabetes mellitus with diabetic chronic kidney disease (principal); N18.30 Chronic kidney disease, stage 3 unspecified; I12.9 Hypertensive chronic kidney disease with stage 1 through stage 4 chronic kidney disease, or unspecified chronic kidney disease; E55.9 Vitamin D deficiency, unspecified; R31.9 Hematuria, unspecified; E79.0 Hyperuricemia without signs of inflammatory arthritis and tophaceous disease
CPT/HCPCS: 36415; 80069; 81001; 82306; 82570; 83735; 83970; 84156; 84550; 85027

== ENCOUNTER 2024-08-19 10:29 | Outpatient (OUT) | payer OTHER, SELFPAY ==
--- OUTSIDE RECORDS SUMMARY | 2024-08-19 10:52 | XMS_ITS | CCD ---
Author Organization [facility] Care Team Providers Care Foot Miter Operator Name Role Phone Ronald, Julien Unavailable Jignesh Sargent Unavailable MD Wendy Chinchilla Primary Care Provider MD Jignesh Sargent Attending Provider [phone] RONALD, JULIEN Attending Unavailable RONALD, JULIEN Consulting Unavailable RONALD, JULIEN Admitting Unavailable DR WENDY CHINCHILLA Primary Care Unavailable JIGNESH SARGENT Consulting Unavailable DR WENDY CHINCHILLA Primary Care Unavailable MISC, DR FOWLER Attending Unavailable MISC, DR FOWLER Admitting Unavailable RONALD, JULIEN Attending Unavailable RONALD, JULIEN Consulting Unavailable RONALD, JULIEN Admitting Unavailable RENÉE, DR THOMPSON Primary Care Unavailable Unavailable Primary Care Provider Wendy Salvador MD Unavailable Wendy Chinchilla MD Primary Care Provider MD Wendy Tomlinson Primary Care Pr ovider YAQUELIN Hernandez Attending Provider Fibroscan, Temporary Attending Provider Unavaila [facility] Attending Unavailable [facility] Admitting Unavailable Wendy Tomlinson Primary Care Un available [facility] Hernandez Admitting Unavailable Wendy Tomlinson Primary Care Un available [facility] Hernandez Attending Unavailable [facility] Hernandez Admitting Unavailable Wendy Tomlinson Primary Care Un available [facility] Hernandez Attending Unavailable Unavailable Primary Care Provider UnavailJENNI Waterman Attending Unavailable ELICIA CROSS Referring Unavailable ELICIA CROSS Attending Unavailable ESTER BLACNA Attending Unavailable ELICIA CROSS Referring Unavailable WENDY CHINCHILLA Referring Unavailable WENDY CHINCHILLA Primary Care Unavailable REBECA HERRERA Attending Unavailable REBECA HERRERA Referring Unavailable KEATON, JOHN العلي Attending Unavailable KEATON, JOHN العلي Referring Unavailable KEATON, JOHN العلي Referring Unavailable BLACKSMORENA LEBLANC Attending Unavailable KEATON, JOHN العلي Referring Unavailable ZANDER CLINE Attending Unavailable KEATON, JOHN العلي Referring Unavailable VAISHALI HENDRICKS Attending Unavailable KEATON, JOHN العلي Referring Unavailable ZANDER CLINE Attending Unavailable KEATON, JOHN العلي Referring Unavailable ZANDER CLINE Attending Unavailable KEATON, JOHN العلي Referring Unavailable ZANDER CLINE Attending Unavailable KEATON, JOHN العلي Referring Unavailable FELTSATISH BEYER Attending Unavailable ZANDER CLINE Attending Unavailable KEATON, JOHN العلي Referring Unavailable ZANDER CLINE Attending Unavailable KEATON, JOHN العلي Referring Unavailable RENÉEWENDY ELLISON Attending Unavailable ZANDER CLINE Attending Unavailable KEATON, JOHN العلي Referring Unavailable ZANDER CLINE Attending Unavailable KEATON, JOHN العلي Referring Unavailable BLACKSTON, MORENA Billy Attending Unavailable KEATON, JOHN العلي Referring Unavailable KEATON, JOHN العلي Attending Unavailable RENÉE, WENDY Attending Unavailable RENÉE, WENDY Attending Unavailable RENÉE, WENDY Attending Unavailable RENÉE, WENDY Attending Unavailable BARB RICHARDS Attending Unavailable BARB RICHARDS Referring Unavailable BARB RICHARDS Referring Unavailable DOLLY DONG Attending Unavailable RENÉE, WENDY Referring Unavailable RENÉE, WENDY Attending Unavailable FELTERSATISH Attending Unavailable RENÉEWENDY Referring Unavailable RENÉE, WENDY Attending Unavailable FELTERSATISH Attending Unavailable Allergies Allergy Classification Reported Allergen(s) Allergy Type Date of Onset Reaction(s) Facility (13 sources) Wound Dressing Adhesive Drug Intolerance 7 Rash [facility] (1 source) Adhesive agent; Translations: [ADHESIVE] Propensity to adverse reactions to drug (disorder) 7 [facility] Rep[facility] Medications Current Medications Medication Drug Class(es) Dates Sig (Normalized) Sig (Original) amoxicillin 500 mg oral tablet (13 sources) Penicillin-class Antibacterial Start: 10-09-2023 take 4 [...] day Active atorvastatin 10 mg oral tablet (20 sources) HMG-CoA Reductase Inhibitor Start: 04-12-2024 take 1 tablet by mouth once daily atorvastatin (Lipitor) 10 MG tablet Indications: Mixed hyperlipidemia (CMS/HCC) Take 1 tablet (10 mg) by mouth Daily 100 tablet 04/12/2024 Active Start: 11-12-2023 take 1 tablet by sunni th once daily atorvastatin (Lipitor) 10 MG tablet Indications: Mixed hyperlipidemia (CMS/HCC) take 1 tablet by mouth once daily 100 tablet 1 11/12/2023 Active Start: 10-17-2022 atorvastatin ( LIPITOR) 10 mg tablet Take by mouth every 24 hours. 0 10/17/2022 Active take 1 tablet by sunni th every twenty-four hours Atorvastatin Calcium 10 MG 1 tablet Orally Once a day Active Comment on above: Take by mouth every 24 hours. Blood Glucose Monitoring Suppl (OneTouch Verio Reflect) w/Device kit (13 sources) Start: 11-04-2022 Blood Glucose Monitoring Suppl (OneTouch Verio Reflect) w/Device kit 11/04/2022 Active Start: 11-04-2022 Blood Glucose Monitoring Suppl (OneTouch Verio Reflect) w/Device kit 24 hr buPROPion hydrochloride 150 mg extended release oral tablet (1 source) Aminoketone take 1 tablet by mouth every twenty-four hours buPROPion HCl ER (XL) 150 MG 1 tablet in the morning Orally Once a day Active Calcium 5660-3986 MG-UNIT (4 sources) take 1 tablet by mouth once daily Calcium 5150-0321 MG-UNIT 1 tablet Orally Once a day Active calcium carbonate 1500 mg oral tablet (5 sources) calcium carbonat e 1500 (600 Ca) MG tablet every 12 (twelve) hours. 0 Active calcium carbonate 600 mg / cholecalciferol 0.01 mg oral tablet (8 sources) Vitamin D Start: 024 Calcium Carb-Cholecalcifero l 600-10 MG-MCG tablet 1 tablet 02/19/2024 Active calcium citrate 250 mg / ergocalciferol 100 mg oral tablet (4 sources) Provitamin D2 Compound take 1 tablet by mouth once daily in the morning Calcium Citrate-Vitamin D2 250 mg-2.5 mcg (100 unit) tab Take 1 tablet by mouth every morning. 0 Active Comment on above: Take 1 tablet by sunni th every morning. citalopram 20 mg oral tablet (3 sources) Serotonin Reuptake Inhibitor take 1 tablet by mouth every twenty-four hours Citalopram Hydrobromide 20 MG 1 tablet Orally Once a day Active clotrimazole 10 mg/ml topical cream (8 sources) Azole Antifungal Start: clotrimazole (Lotrimin) 1 % cream 04/30/2024 Active Cranberry preparation (20 sources) Non-Standardized Food Allergenic Extract, Non-Standardized Plant Allergenic Extract Cranberry 425 MG capsule Active Cranberry 425 MG capsule take 1 capsule [...] mouth . dapagliflozin 10 mg oral tablet (20 sources) Sodium-Glucose Cotransporter 2 Inhibitor Start: 04-27-2024 Farxiga 10 MG Indications: Type 2 diabetes mellitus without complication, without long-term current use of insulin (CMS/HCC) TAKE 1 TABLET DAILY 90 tablet 1 04/27/2024 Active Start: 11-20-2023 take 1 tablet by sunni th in the morning dapagliflozin (Farxiga) 10 MG Indications: Type 2 diabetes mellitus without complication, without long-term current use of insulin (CMS/HCC) Take 1 tablet (10 mg) by mouth in the morning. 90 tablet 0 11/20/2023 Active Start: 05-02-2023 End: 11-21-2023 FARXIGA 10 mg tablet Docosahexaenoate (4 sources) DOCOSAHEXAENOIC ACID ORAL Take by mouth as directed. 0 Active Comment on above: Take by mouth as dir ected. fluconazole 150 mg oral tablet (5 sources) Azole Antifungal Start: 01-09-2 024 fluconazole (Diflucan) 150 MG tablet fluticasone propionate 0.05 mg/actuat metered dose nasal spray (18 sources) Corticosteroid Start: 024 take 1 spray(s) nasal route once daily fluticasone (Flonase) 50 MCG/ACT nasal spray Indications: Nasal drainage USE 1 SPRAY IN BOTH NOSTRILS ONCE DAILY 32 g 1 02/22/2024 Active Start: 11-04-2022 fluticasone (F LONASE) 50 mcg/actuation nasal spray 1 (one) time each day at the same time. 0 11/04/2022 Active fluticasone (Bigg nase) 50 MCG/ACT nasal spray 1 (one) time each day at the same time. 0 Active take 1 spray(s) nasa l route once daily Flonase Allergy Relief 50 MCG/ACT 1 spray in each nostril Nasally Once a day Active Comment on above: 1 (one) time each da y at the same time. furosemide 20 mg oral tablet (20 sources) Loop Diuretic Start: 7 take 1 tablet by mouth once daily furosemide (Lasix) 20 MG tablet Indications: Primary hypertension (CMS/HCC) Take 1 tablet (20 mg) by mouth Daily 100 tablet 1 12/03/2023 Active Hair Skin & Nails Advanced - (1 source) Hair Skin & Nail s Advanced - as directed Orally Active HAIR, SKIN AND NAILS, BIOTIN, ORAL (4 sources) HAIR, SKIN AND N AILS, BIOTIN, ORAL Take by mouth as directed. 0 Active Comment on above: Take by mouth as dir ected. R-Xyjuynjmuomf-Higpt-B 12-B6 (Metanx) 3-90.314-2-35 MG capsule (13 sources) Start: 3 A-Durrgtuesfyw-Corav-B 12-B6 (Metanx) 3-90.314-2-35 MG capsule Indications: Diabetic polyneuropathy associated with type 2 diabetes mellitus (CMS/HCC) TAKE 1 CAPSULE BY MOUTH TWO TIMES A DAY DIRECTED 180 capsule 3 08/17/2023 Active ppfpsegdx-U0-fqV34-alg al oil (METANX, ALGAL OIL,) 3 mg-35 mg-2 mg -90.314 mg cap (4 sources) donuorvae-S0-oeO 12-alg al oil (METANX, ALGAL OIL,) 3 mg-35 mg-2 mg -90.314 mg cap Take by mouth as directed. 0 Active Comment on above: Take by mouth as dir ected. levothyroxine sodium 0.1 mg oral tablet (20 sources) l-Thyroxine Start: 3 take 1 tablet by mouth once daily levothyroxine (Synthroid, Levoxyl) 100 MCG tablet Indications: Acquired hypothyroidism (CMS/HCC) Take 1 tablet (100 mcg) by mouth Daily 100 tablet 1 12/03/2023 Active take 1 tablet by sunni th every twenty-four hours Levothyroxine Sodium 100 MCG 1 tablet Orally Once a day Active lisinopril 2.5 mg oral tablet (19 sources) Angiotensin Converting Enzyme Inhibitor Start: 12-03-2023 End: 08-02-2024 lisinopril 2.5 MG tablet Indications: Primary hypertension (CMS/HCC) TAKE 1 TABLET DAILY 100 tablet 1 08/02/2024 Active Start: 08-14-2022 take 1 tablet by sunni th every twenty-four hours Lisinopril 2.5 MG 1 tablet Orally Once a day for 90 days Aug, Active Metanx 3-90.314-2-35 MG (1 source) Metanx 3-90.314- 2-35 MG as directed Orally TWICE A DAY Active metFORMIN hydrochloride 500 mg oral tablet (20 sources) Biguanide Start: 3 End: 4 metFORMIN (Glucophage) 500 MG tablet Indications: Type 2 diabetes mellitus with stage 2 chronic kidney disease, without long-term current use of insulin (CMS/HCC) TAKE 1 TABLET TWICE DAILY WITH MEALS 180 tablet 1 07/28/2024 Active 24 hr metoprolol succinate 25 mg extended release oral tablet (7 sources) beta-Adrenergic Sarmad take 1 tablet by mouth every twenty-four hours Metoprolol Succinate ER 25 MG 1 tablet Orally Once a day Active Multiple Vitamins-Minerals (Womens Multi Vitamin & Mineral) tablet (13 sources) Multiple Vitamins-Minerals (Womens Multi Vitamin & Mineral) tablet Active Multiple Vitamin s-Minerals (Womens Multi Vitamin & Mineral) tablet Multivitamin capsule (4 sources) take 1 capsule by mouth once daily in the morning Multivitamin capsule Take 1 capsule by mouth every morning. 0 Active Comment on above: Take 1 capsule by mo uth every morning. Multivitamin preparation (6 sources) Multivitamin - Orally Active [place] 3 (4 sources) [place] 3 Active 24 hr oxybutynin chloride 15 mg extended release oral tablet (19 sources) Cholinergic Muscarinic Antagonist Start: take 1 tablet by mouth once daily oxybutynin XL (Ditropan-XL) 15 MG 24 hr tablet Indications: Urgency of urination Take 1 tablet by mouth once a day 90 tablet 3 12/03/2023 Active Start: 08-21-2023 take 1 tablet by sunni th once daily oxybutynin XL (Ditropan-XL) 15 MG 24 hr tablet Indications: Urgency of urination Take 1 tablet by mouth once a day 90 tablet 3 08/21/2023 Active Start: 08-04-2023 oxybutynin ER (DITROPAN XL) 10 mg 24 hr tablet take 1 tablet by sunni th every twenty-four hours oxyBUTYnin Chloride ER 10 MG 1 tablet Orally Once a day Active SITagliptin 50 mg oral tablet (9 sources) Dipeptidyl Peptidase 4 Inhibitor Start: 08-05-2024 take 1 tablet by mouth once daily Januvia 50 MG tablet Indications: Type 2 diabetes mellitus with diabetic polyneuropathy, without long-term current use of insulin (CMS/HCC) TAKE 1 TABLET BY MOUTH DAILY 30 tablet 1 08/05/2024 Active Start: 06-15-2024 End: 06-15-2025 take 1 tablet by mouth once daily SITagliptin (Januvia) 50 MG tablet Indications: Type 2 diabetes mellitus with diabetic polyneuropathy, without long-term current use of insulin (CMS/HCC) Take 1 tablet (50 mg) by mouth Daily 30 tablet 1 06/15/2024 08/05/2024 Discontinued triamcinolone acetonide 0.001 mg/mg oral paste (1 [...] Drug Class(es) Dates Sig (Normalized) Sig (Original) meloxicam 15 mg oral tablet (4 sources) Nonsteroidal Anti-inflammatory Drug take 1 tablet by mouth once daily as needed Meloxicam 15 MG 1 tablet Orally Once a day PRN ONLY Not-Taking Problems Active Problems Problem Classification Problem Date Documented Date Episodic/Chronic Anxiety disorders (13 sources) Anxiety; Translations: [Anxiety disorder, unspecified] Onset: 3 04-27-2023 Chronic Chronic kidney disease (20 sources) Chronic kidney disease stage 3; Translations: [Chronic kidney disease, stage 3 (moderate)] Onset: 1 Resolved: 1 Chronic Coronary atherosclerosis and other heart disease (13 sources) Atypical angina; Translations: [Atypical angina] Onset: 3 04-27-2023 Chronic Diabetes mellitus with complications (20 sources) Type 2 diabetes mellitus well controlled; Translations: [Type 2 diabetes mellitus with hyperglycemia] Onset: 3 Chronic Diabetes mellitus without complication (18 sources) Type 2 diabetes mellitus; Translations: [Type 2 diabetes mellitus without complications] Onset: 3 08-10-2023 Chronic Disorders of lipid metabolism (17 sources) Mixed hyperlipidemia; Translations: [Mixed hyperlipidemia] Onset: 3 08-10-2023 Chronic Esophageal disorders (20 sources) Gastroesophageal reflux disease without esophagitis; Translations: [Gastro-esophageal reflux disease without esophagitis] Onset: 3 04-27-2023 Chronic Essential hypertension (18 sources) Hypertensive disorder; Translations: [Essential (primary) hypertension] Onset: 3 08-10-2023 Chronic Genitourinary symptoms and ill-defined conditions (20 sources) Urinary incontinence; Translations: [Unspecified urinary incontinence] Onset: 3 04-27-2023 Chronic Hepatitis (14 sources) Nonalcoholic steatohepatitis; Translations: [Nonalcoholic steatohepatitis (CABELLO)] Onset: 4 Chronic Hypertension with complications and secondary hypertension (20 sources) Chronic kidney disease due to hypertension; Translations: [Hypertensive chronic kidney disease with stage 1 through stage 4 chronic kidney disease, or unspecified chronic kidney disease] Onset: 1 Resolved: 2 Chronic Menopausal disorders (20 sources) Disorder associated with menstruation AND/OR menopause; Translations: [Unspecified menopausal and perimenopausal disorder] Onset: 3 Resolved: 4 04-27-2023 Chronic Nutritional deficiencies (20 sources) Vitamin D deficiency; Translations: [Vitamin D deficiency, unspecified] Onset: 1 Resolved: 2 Chronic Osteoarthritis (13 sources) Osteoarthritis of knee; Translations: [Osteoarthritis of knee, unspecified] Onset: 3 04-27-2023 Chronic Other acquired deformities (13 sources) Joint contracture of the ankle and foot; Translations: [Contracture, unspecified ankle] Onset: 3 05-03-2023 Chronic Other and unspecified benign neoplasm (2 sources) Melanocytic nevus of trunk; Translations: [Melanocytic nevi of trunk] 07-21-2024 Episodic Other circulatory disease (2 sources) Spider nevus; Translations: [Nevus, non-neoplastic] 07-21-2024 Episodic Other connective tissue disease (13 sources) Artificial knee joint present; Translations: [Presence of left artificial knee joint] Onset: 3 04-27-2023 Chronic Other connective tissue disease (13 sources) History of total knee arthroplasty; Translations: [Presence of right artificial knee joint] Onset: 3 04-27-2023 Chronic Other diseases of bladder and urethra (17 sources) Overactive bladder; Translations: [Overactive bladder] Onset: [...] ear and sense organ disorders (5 sources) 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; Translations: [Sensorineural hearing loss, bilateral] Onset: 3 08-10-2023 Chronic Other ear and sense organ disorders (13 sources) Chronic non-infective otitis externa; Translations: [Other otitis externa, bilateral] Onset: 3 Resolved: 4 04-27-2023 Chronic Other ear and sense organ disorders (13 sources) Sensorineural hearing loss, bilateral; Translations: [Sensorineural hearing loss, bilateral] Onset: 3 04-27-2023 Chronic Other liver diseases (15 sources) Steatosis of liver; Translations: [Fatty (change of) liver, not elsewhere classified] Onset: 3 04-27-2023 Chronic Other liver diseases (2 sources) Fatty (change of) liver, not elsewhere classified; Translations: [Fatty (change of) liver, not elsewhere classified] Onset: 4 Chronic Other liver diseases (1 source) Portal hypertension; Translations: [Portal hypertension] Onset: 4 Chronic Other nervous system disorders (13 sources) Chronic pain; Translations: [Other chronic pain] Onset: 3 04-27-2023 Chronic Other non-traumatic joint disorders (13 sources) Derangement of right shoulder joint; Translations: [Other specific joint derangements of right shoulder, not elsewhere classified] Onset: 3 04-27-2023 Chronic Other nutritional; endocrine; and metabolic disorders (8 sources) Obese class I; Translations: [Body mass index (BMI) 33.0-33.9, adult] Chronic Other nutritional; endocrine; and metabolic disorders (13 sources) Morbid obesity; Translations: [Morbid (severe) obesity due to excess calories] Onset: 3 04-27-2023 Chronic Other nutritional; endocrine; and metabolic disorders (2 sources) Hyperuricemia without signs of inflammatory arthritis and tophaceous disease Episodic Other skin disorders (2 sources) Seborrheic keratosis; Translations: [Other seborrheic keratosis] 07-21-2024 Episodic Other upper respiratory disease (13 sources) Allergic rhinitis due to pollen; Translations: [Allergic rhinitis due to pollen] Onset: 3 04-27-2023 Chronic Prolapse of female genital organs (20 sources) Midline cystocele; Translations: [Cystocele, midline] Onset: 3 04-27-2023 Chronic Residual codes; unclassified (13 sources) Obstructive sleep apnea syndrome; Translations: [Obstructive sleep apnea (adult) (pediatric)] Onset: 3 04-27-2023 Chronic Spondylosis; intervertebral disc disorders; other back problems (19 sources) Degeneration of lumbar intervertebral disc; Translations: [Other intervertebral disc degeneration, lumbar region] Onset: 3 11-09-2023 Chronic Thyroid disorders (17 sources) Hypothyroidism; Translations: [Hypothyroidism, unspecified] Onset: 3 08-10-2023 Chronic Unclassified (1 source) CHRN KIDNEY DISEASE STG 3 UNSP; Translations: [CHRN KIDNEY DISEASE STG 3 UNSP] Onset: Past or Other Problems Problem Classification Problem Date Documented Da te Episodic/Chronic Adjustment disorders (13 sources) Grief finding; Translations: [Adjustment disorder with depressed mood] Onset: 04-27-2023 Resolved: 03-11-2024 04-27-2023 Chronic Chronic kidney disease (10 sources) Chronic kidney disease; Translations: [Chronic kidney disease, stage III (moderate)] Onset: 11-23-2021 Resolved: 02-13-2022 Diabetes mellitus without complication (3 sources) Hyperglycemia, unspecified; Translations: [HYPERGLYCEMIA UNSPECIFIED] Onset: 08-10-2021 Resolved: 02-13-2022 Episodic Diseases of mouth; excluding dental (4 sources) Oral lesion; Translations: [Unspecified lesions of oral mucosa] Onset: 11-12-2023 08-10-2023 Episodic Gastritis and duodenitis (13 sources) Gastritis; Translations: [Gastritis, unspecified, without bleeding] Onset: 04-27-2023 04-27-2023 Episodic Genitourinary symptoms and ill-defined conditions (20 sources) Hematuria, unspecified; Translations: [Urinary system finding] Onset: 08-10-2021 Resolved: 02-13-2022 Episodic Mood disorders (13 sources) Mild major depression, single episode; Translations: [Major depressive disorder, single episode, mild] Onset: 04-27-2023 Resolved: 03-11-2024 04-27-2023 Chronic Other connective tissue disease (13 sources) Pain of right calf; Translations: [Pain in right lower leg] Onset: 04-27-2023 04-27-2023 Episodic Other connective tissue disease (13 sources) Recurrent falls ; Translations: [Repeated falls] Onset: 04-27-2023 04-27-2023 Episodic Other ear and sense organ disorders (13 sources) Decreased hearing ; Translations: [Unspecified hearing loss, bilateral] Onset: 04-27-2023 Resolved: 12-07-2023 04-27-2023 Chronic Other ear and sense organ disorders (13 sources) Ear pressure sensation; Translations: [Other specified disorders of ear, bilateral] Onset: 04-27-2023 04-27-2023 Episodic Other liver diseases (5 sources) Abnormal levels of other serum enzymes; Translations: [ABNORMAL LEVELS OTHER SERUM ENZYMES] Onset: 2022 Episodic Other nervous system disorders (13 sources) Carpal tunnel syndrome of left wrist; Translations: [Carpal tunnel syndrome, left upper limb] Onset: 04-27-2023 Resolved: 12-07-2023 04-27-2023 Chronic Other nervous system disorders (13 sources) Difficulty walking; Translations: [Difficulty in walking, not elsewhere classified] Onset: 04-27-2023 Resolved: 03-11-2024 04-27-2023 Chronic Other nervous system disorders (13 sources) Abnormal gait; Translations: [Unsteadiness on feet] Onset: 04-27-2023 04-27-2023 Episodic Other non-traumatic joint disorders (13 sources) Pain in left knee; Translations: [Pain in joint, lower leg] Onset: 04-27-2023 04-27-2023 Episodic Other non-traumatic joint disorders (13 sources) Anterior knee pain; Translations: [Pain in right knee] Onset: 04-27-2023 04-27-2023 Episodic Other nutritional; endocrine; and metabolic disorders (8 sources) Hyperuricemia; Translations: [Hyperuricemia without signs of inflammatory arthritis and tophaceous disease] Onset: 05-01-2024 05-01-2024 Episodic Other screening for suspected conditions (not mental disorders or infectious disease) (13 sources) Coronary artery finding; Translations: [Abnormal findings on diagnostic imaging of heart and coronary circulation] Onset: 06-04-2023 06-05-2023 Episodic Other upper respiratory disease (13 sources) Nasal discharge; Translations: [Other specified disorders of nose and nasal sinuses] Onset: 04-27-2023 04-27-2023 Episodic Otitis media and related conditions (13 sources) Dysfunction of bilateral eustachian tubes; Translations: [Unspecified Eustachian tube disorder, bilateral] Onset: 04-27-2023 Resolved: 03-11-2024 04-27-2023 Episodic Spondylosis; intervertebral disc disorders; other back problems (13 sources) Pain in thoracic spine; Translations: [Pain in thoracic spine] Onset: 04-27-2023 04-27-2023 Episodic Results Test Name Value Interpretation Reference Range Facility US RUQon 07-02-2024 US RUQ TITLE OF EXAM: US - US ABDOMEN LIMITED REASON FOR EXAM: Elevated LIPASE TECHNIQUE: Grayscale, color, and spectral Doppler ultrasound evaluation of the abdomen. COMPARISON: Abdominal ultrasound 11/30/2021 FINDINGS: Measurements: Right kidney: 10.9 x 4.9 x 4.3 cm Common bile duct diameter: 0.6 cm Pancreas head 2.7 cm, body 1.0 cm, tail 1.2 cm Hepatic length: 15.2 cm Pancreas: The pancreas is suboptimally visualized in the tail. There is no significant abnormality in the evaluable portion. The main pancreatic duct is not dilated. Liver: Normal size. Diffuse hyperechogenicity. Normal hepatic shape and echotexture. No definite focal hepatic lesion. Overall hepatopedal flow of the main portal vein, though there is a significant loss of normal portal venous waveform and flow velocities are approximately 10 cm/s, with some evidence of to and fro flow. Bile ducts: The intrahepatic bile ducts are not dilated. The common hepatic bile duct is not dilated. Gallbladder: Surgically absent. Right Kidney: The parenchymal echogenicity and thickness are normal. Thin-walled, anechoic, avascular, simple appearing exophytic cyst arises from the renal cortex, 1.0 x 0.9 x 0.7 cm. No concerning focal lesion is demonstrated. No hydronephrosis. No ascites. IMPRESSION: 1. Hepatic steatosis. 2. Overall hepatopetal flow of the main portal vein, though there is low flow velocity, mild to and fro flow, and loss of normal waveform, now monophasic. Findings indicative of portal venous congestion/hypertension. DICTATED ON: 07/02/2024 10:37 AM This report has been electronically signed in approved by the interpreting radiologist. Electronically Signed Hans Toledo M.D. 2024-07-02 10:42:03 Normal Not Available AFP Tumor Marker, Serumon AFP Tumor Marker, Serum 3.1 ng/mL Normal 0.0-9.2 [facility] Comment on above: Result Comment: [facility] Electrochemiluminescence Immunoassay (ECLIA) Values obtained with different assay methods or kits cannot be used interchangeably. Results cannot be interpreted as absolute evidence of the presence or absence of malignant disease. This test is not interpretable in females. Performed at: [facility] [id number] [facility] Family Services Worker: Ernesto Beebe PhD, Phone: [phone] PERFORMED BY: [address] [address] PATHOLOGIST TIMBER POISONER HARI BENDER M.D. Performed By: #### A FPTM #### [facility] , Alanine aminotransferase [En zymatic activity/volume] in Serum or PlasmaOrdered By: Mt Hernandez on 12-27-2023 ALT [Catalytic activity/Vol] 53 U/L 7-52 [facility] Albumin [Mass/volume] in Ser um or Plasma by Bromocresol green (BCG) dye binding methoOrdered By: Mt Hernandez on 12-27-2023 Albumin BCG dye [Mass/Vol] 4.7 g/dL 3.5-5.7 [facility] Alkaline phosphatase [Enzyma tic activity/volume] in Serum or PlasmaOrdered By: Mt Hernandez on 12-27-2023 ALP [Catalytic activity/Vol] 65 U/L 34-104 [facility] Aspartate aminotransferase [ Enzymatic activity/volume] in Serum or PlasmaOrdered By: Mt Hernandez on 12-27-2023 AST [Catalytic activity/Vol] 45 U/L 13-39 [facility] Basophils Auto (Bld) [#/Vol] Ordered By: Mt Hernandez on 12-27-2023 Basophils (Bld) [#/Vol] 0.1 10*3/uL 0.0-0.2 [facility] Basophils/100 WBC Auto (Bld) Ordered By: Mt Hernandez on 12-27-2023 Basophils/100 WBC (Bld) 0.8 % . [facility] Bilirubin.total [Mass/volume ] in Serum or PlasmaOrdered By: Mt Hernandez on 12-27-2023 Bilirubin [Mass/Vol] 0.4 mg/dL 0.3-1.0 [facility] Calcium [Mass/volume] in Ser um or PlasmaOrdered By: Mt Hernandez on 12-27-2023 Calcium [Mass/Vol] 10.2 mg/dL 8.6-10.3 [facility] Carbon dioxide, total [Moles /volume] in Serum or PlasmaOrdered By: Mt Hernandez on 12-27-2023 CO2 [Moles/Vol] 32.2 mmol/L 21.0-31.0 [facility] Chloride [Moles/volume] in S isabella or PlasmaOrdered By: Mt Hernandez on 12-27-2023 Chloride [Moles/Vol] 97 mmol/L 98-107 [facility] Complete Blood Count Auto Di ffon 12-27-2023 Basophils (Bld) [#/Vol] 0.1 10*3/uL Normal 0.0-0.2 [facility] Comment on above: Result Comment: PERF ORMED BY: [place] [address] PATHOLOGIST TIMBER POISONER HARI BENDER M.D. Performed By: #### C MP, CBC #### [facility] [address] Basophils/100 WBC (Bld) 0.8 % Normal . [facility] Comment on above: Performed By: #### C MP, CBC #### [facility] [address] [place] [address] [place] Eosinophils (Bld) [#/Vol] 0.2 10*3/uL Normal 0.0-0.45 [facility] Comment on above: Performed By: #### C MP, CBC #### [facility] [address] Eosinophils/100 WBC (Bld) 1.9 % Normal . [facility] Comment on above: Performed By: #### C MP, CBC #### [address] Erythrocyte distribution width (RBC) [Ratio] 14.4 % Normal 11.9-15.3 [facility] Comment on above: Performed By: #### C MP, CBC #### [address] Hematocrit (Bld) [Volume fraction] 45.7 % Normal 34.0-46.4 [facility] Comment on above: Performed By: #### C MP, CBC #### [address] Hemoglobin (Bld) [Mass/Vol] 15.1 g/dL Normal 11.8-15.4 [facility] Comment on above: Performed By: #### C MP, CBC #### [address] Lymphocytes (Bld) [#/Vol] 3.1 10*3/uL Normal 1.00-4.8 [facility] Comment on above: Performed By: #### C MP, CBC #### [place] [address] [place] Lymphocytes/100 WBC (Bld) 30.7 % Normal . [facility] Comment on above: Performed By: #### C MP, CBC #### [address] MCH (RBC) [Entitic mass] 28.1 pg Normal 24.7-34.3 [facility] Comment on above: Performed By: #### C MP, CBC #### [address] MCV (RBC) [Entitic vol] 84.8 fL Normal 80-100 [facility] Comment on above: Performed By: #### C MP, CBC #### [address] Mean Corpuscular HGB Conc 33.1 g/dL Normal 32.0-35.0 [facility] Comment on above: Performed By: #### C MP, CBC #### [place] [address] [place] Monocytes (Bld) [#/Vol] 0.8 10*3/uL Normal 0.0-0.8 [facility] Comment on above: Performed By: #### C MP, CBC #### [address] Monocytes/100 WBC (Bld) 7.9 % Normal . [facility] Comment on above: Performed By: #### C MP, CBC #### [address] Neutrophils (Bld) [#/Vol] 6.0 10*3/uL Normal 1.8-7.7 [facility] Comment on above: Performed By: #### C MP, CBC #### [address] Neutrophils/100 WBC (Bld) 58.7 % Normal . [facility] Comment on above: Performed By: #### C MP, CBC #### [address] NRBC% 0.2 /100{WBC} Normal 0-0.5 [facility] Comment on above: Performed By: #### C MP, CBC #### [address] Platelet mean volume (Bld) [Entitic vol] 7.8 fL Normal 6.3-10.7 [facility] Comment on above: Performed By: #### C MP, CBC #### [place] [address] [place] Platelets (Bld) [#/Vol] 262 10*3/uL Normal 150-450 [facility] Comment on above: Performed By: #### C MP, CBC #### [place] [address] [place] RBC (Bld) [#/Vol] 5.39 10*6/uL High 3.60-5.00 [facility] Comment on above: Performed By: #### C MP, CBC #### [address] WBC (Bld) [#/Vol] 10.2 10*3/uL Normal 3.8-11.6 [facility] Comment on above: Performed By: #### C MP, CBC #### [address] Comprehensive Metabolic Pane petr 12-27-2023 Albumin [Mass/Vol] 4.7 g/dL Normal 3.5-5.7 [facility] Comment on above: Performed By: #### C MP, CBC #### [address] Albumin/Globulin [Mass ratio] 1.8 {ratio} Normal [facility] Comment on above: Performed By: #### C MP, CBC #### [address] ALP [Catalytic activity/Vol] 65 U/L Normal 34-104 [facility] Comment on above: Result Comment: PERF ORMED BY: [place] [address] PATHOLOGIST TIMBER POISONER HARI BENDER M.D. Performed By: #### C MP, CBC #### [address] ALT [Catalytic activity/Vol] 53 U/L High 7-52 [facility] Comment on above: Performed By: #### C MP, CBC #### [address] Anion gap [Moles/Vol] 13.0 mmol/L Normal 6.0-15.0 [facility] Comment on above: Performed By: #### C MP, CBC #### [address] AST [Catalytic activity/Vol] 45 U/L High 13-39 [facility] Comment on above: Performed By: #### C MP, CBC #### [address] Bilirubin [Mass/Vol] 0.4 mg/dL Normal 0.3-1.0 [facility] Comment on above: Performed By: #### C MP, CBC #### [address] Calcium [Mass/Vol] 10.2 mg/dL Normal 8.6-10.3 [facility] Comment on above: Performed By: #### C MP, CBC #### [address] Chloride [Moles/Vol] 97 mmol/L Low 98-107 [facility] Comment on above: Performed By: #### C MP, CBC #### [address] CO2 [Moles/Vol] 32.2 mmol/L High 21.0-31.0 [facility] Comment on above: Performed By: #### C MP, CBC #### [address] Creatinine [Mass/Vol] 1.18 mg/dL Normal 0.60-1.20 [facility] Comment on above: Performed By: #### C MP, CBC #### [address] GFR/1.73 sq M.predicted MDRD (S/P/Bld) [Vol rate/Area] 49.381 mL/min/{1.73_m2} Normal [facility] Comment on above: Performed By: #### C MP, CBC #### [address] Globulin (S) [Mass/Vol] 2.6 g/dL Normal [facility] Comment on above: Performed By: #### C MP, CBC #### [address] Glucose [Mass/Vol] 131 mg/dL High 70-100 [facility] Comment on above: Result Comment: [place] Glucose Reference Range is dependent on time and content of last meal. Glucose of more than 200 mg/dL in a nonstressed, ambulatory subject supports the diagnosis of Diabetes Mellitus. ADA recommended reference range Performed By: #### C MP, CBC #### [facility] [address] [place] [address] [place] Potassium [Moles/Vol] 4.2 mmol/L Normal 3.5-5.1 [facility] Comment on above: Performed By: #### C MP, CBC #### [facility] [address] Protein [Mass/Vol] 7.3 g/dL Normal 6.4-8.9 [facility] Comment on above: Performed By: #### C MP, CBC #### [facility] [address] [place] [address] [place] Sodium [Moles/Vol] 138 mmol/L Normal 136-145 [facility] Comment on above: Performed By: #### C MP, CBC #### [facility] [address] Urea nitrogen [Mass/Vol] 22 mg/dL Normal 7-25 [facility] Comment on above: Performed By: #### C MP, CBC #### [facility] [address] [place] [address] [place] Creatinine [Mass/volume] in Serum or PlasmaOrdered By: Mt Hernandez on 12-27-2023 Creatinine [Mass/Vol] 1.18 mg/dL 0.60-1.20 [facility] Eosinophils Auto (Bld) [#/Vo l]Ordered By: Mt Hernandez on 12-27-2023 Eosinophils (Bld) [#/Vol] 0.2 10*3/uL 0.0-0.45 [facility] Eosinophils/100 WBC Auto (Bl d)Ordered By: Mt Hernandez on 12-27-2023 Eosinophils/100 WBC (Bld) 1.9 % . [facility] Erythrocyte distribution wid th Auto (RBC) [Ratio]Ordered By: Mt Hernandez on 12-27-2023 Erythrocyte distribution width (RBC) [Ratio] 14.4 % 11.9-15.3 [facility] Globulin Calc (S) [Mass/Vol] Ordered By: Mt Hernandez on 12-27-2023 Globulin (S) [Mass/Vol] 2.6 g/dL [facility] Glucose [Mass/volume] in Ser um or PlasmaOrdered By: Mt Hernandez on 12-27-2023 Glucose [Mass/Vol] 131 mg/dL 70-100 [facility] Comment on above: ADA recommended refe rence rangeRandom Glucose Reference Range is dependent on time and content of last meal. Glucose of more than 200 mg/dL in a nonstressed, ambulatory subject supports the diagnosis of Diabetes Mellitus. Hematocrit Auto (Bld) [Volum e fraction]Ordered By: Mt Hernandez on 12-27-2023 Hematocrit (Bld) [Volume fraction] 45.7 % 34.0-46.4 [facility] Hemoglobin [Mass/volume] in BloodOrdered By: Mt Hernandez on 12-27-2023 Hemoglobin (Bld) [Mass/Vol] 15.1 g/dL 11.8-15.4 [facility] Leukocytes [#/volume] correc tarun for nucleated erythrocytes in Blood by Automated counOrdered By: Mt Hernandez on 12-27-2023 WBC corrected for nucl RBC Auto (Bld) [#/Vol] 10.2 10*3/uL 3.8-11.6 [facility] Lymphocytes Auto (Bld) [#/Vo l]Ordered By: Mt Hernandez on 12-27-2023 Lymphocytes (Bld) [#/Vol] 3.1 10*3/uL 1.00-4.8 [facility] Lymphocytes/100 WBC Auto (Bl d)Ordered By: Mt Hernandez on 12-27-2023 Lymphocytes/100 WBC (Bld) 30.7 % . [facility] MCH Auto (RBC) [Entitic mass ]Ordered By: Mt Hernandez on 12-27-2023 MCH (RBC) [Entitic mass] 28.1 pg 24.7-34.3 [facility] MCHC Auto (RBC) [Mass/Vol]Or dered By: Mt Hernandez on 12-27-2023 MCHC (RBC) [Mass/Vol] 33.1 g/dL 32.0-35.0 [facility] MCV Auto (RBC) [Entitic vol] Ordered By: Mt Hernandez on 12-27-2023 MCV (RBC) [Entitic vol] 84.8 fL 80-100 [facility] Monocytes Auto (Bld) [#/Vol] Ordered By: Mt Hernandez on 12-27-2023 Monocytes (Bld) [#/Vol] 0.8 10*3/uL 0.0-0.8 [facility] Monocytes/100 WBC Auto (Bld) Ordered By: Mt Hernandez on 12-27-2023 Monocytes/100 WBC (Bld) 7.9 % . [facility] Neutrophils Auto (Bld) [#/Vo l]Ordered By: Mt Hernandez on 12-27-2023 Neutrophils (Bld) [#/Vol] 6.0 10*3/uL 1.8-7.7 [facility] Neutrophils/100 WBC Auto (Bl d)Ordered By: Mt Hernandez on 12-27-2023 Neutrophils/100 WBC (Bld) 58.7 % . [facility] No Panel InformationOrdered By: Mt Hernandez on 12-27-2023 Estimated GFR (CKD-EPI) 49.381 mL/Min [facility] Creatinine Clearance (Chem N/A [facility] Nucleated erythrocytes [Pres ence] in Blood by Automated countOrdered By: Mt Hernandez on 12-27-2023 Nucleated RBC Auto Ql (Bld) 0.2 /100{WBC} 0-0.5 [facility] Platelet mean volume Auto (B ld) [Entitic vol]Ordered By: Mt Hernandez on 12-27-2023 Platelet mean volume (Bld) [Entitic vol] 7.8 fL 6.3-10.7 [facility] Platelets Auto (Bld) [#/Vol] Ordered By: Mt Hernandez on 12-27-2023 Platelets (Bld) [#/Vol] 262 10*3/uL 150-450 [facility] Potassium [Moles/volume] in Serum or PlasmaOrdered By: Mt Hernandez on 12-27-2023 Potassium [Moles/Vol] 4.2 mmol/L 3.5-5.1 [facility] Protein [Mass/volume] in Ser um or PlasmaOrdered By: Mt Hernandez on 12-27-2023 Protein [Mass/Vol] 7.3 g/dL 6.4-8.9 [facility] RBC Auto (Bld) [#/Vol]Ordere d By: Mt Hernandez on 12-27-2023 RBC (Bld) [#/Vol] 5.39 10*6/uL 3.60-5.00 [facility] Serum or plasma albumin/glob ulin mass ratioOrdered By: Mt Hernandez on 12-27-2023 Albumin/Globulin [Mass ratio] 1.8 {ratio} [facility] Serum or plasma anion gap de terminationOrdered By: Mt Hernandez on 12-27-2023 Anion gap [Moles/Vol] 13.0 mmol/L 6.0-15.0 [facility] Sodium [Moles/volume] in Ser um or PlasmaOrdered By: Mt Hernandez on 12-27-2023 Sodium [Moles/Vol] 138 mmol/L 136-145 [facility] Urea nitrogen [Mass/volume] in Serum or PlasmaOrdered By: Mt Hernandez on 12-27-2023 Urea nitrogen [Mass/Vol] 22 mg/dL 7-25 [facility] WBC Auto (Bld) [#/Vol]Ordere d By: Mt Hernandez on 12-27-2023 WBC (Bld) [#/Vol] 10.2 10*3/uL 3.8-11.6 [facility] CNOVon 11-12-2023 CNOV Office Visit (OTOLST ) -- VIVIAN DURAN ([id number]) 1950 F Date Time Provider Department 11/12/23 10:05 AM JENNI SERRANO OTOLST During your visit today, we recorded the following information about you: Jenni Serrano MD 11/12/2023 10:31 AM Signed History: Vivian Duran, a 73 year old female, presents for [...] kidney disease) stage 3, GFR 30-59 ml/min ([facility]) DM type 2 (diabetes mellitus, type 2) ([facility]) HTN (hypertension) Hypothyroidism Mixed hyperlipidemia [...] of lesions. TMs clear and mobile. Neurologic: guest experience specialist II-XII grossly intact. Assessment/Plan: Reassured no apparent oral lesion. 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 F/up prn. Medical Decision Making: Problems: Low: Acute, uncomplicated illness or injury Risk: Minimal: Minimal risk from testing/treatment Medical Decision Making Level: 2 - Straightforward Referring Provider: ELICIA CROSS [[id number]] Allergies As of Date: 11/12/2023 (No Known Allergies) Date Reviewed: 11/12/2023 Reviewed by: Azalia Antonio MA - Fully Assessed Reason for Visit: Consult [173] Visit Diagnosis:Oral lesion [K13.70] Order(s):CONSULT TO ENT [9008] Order #: [id number]: 1 Prescriptions as of 11/12/2023 - furosemide [...] ORAL Take by mouth as directed. - [id number]-algal oil (METANX, ALGAL OIL,) 3 mg-35 mg-2 [...] frequency sensorineural hearing *08/10/2023 Encounter Status:Closed by JENNI SERRANO on 11/12/23 [facility] Cat 10-10-2023 [facility] Telephone (OTOLCC) -- VIVIAN DURAN ([id number]) 1950 F Date Time Provider Department 10/10/23 ELICIA CROSS During your visit today, we recorded the following information about you: Pamela Lange 10/10/2023 4:01 PM Signed Devoted is calling Elicia Cross APRN.MACHINE SHOP SPECIALIST today to as pt went to dentist and they advised the spot in he mouth needs biopsied. Pt has been calling oral surgeons all day with no luck. Dental office advised to call provider since she had seen her in the past for this reason. Please advise if Elicia can do procedure or any other provider that could. Patient has been identified by name and birthdate. Duration of symptoms: N/A Person calling: self Call patient at: at home [phone] (home) [phone] (cell) Was an appointment scheduled: No Closing statement: Results or non-symptom based questions: Thank you for calling [facility], your call will be returned within the next business day. Elicia Ramirez APRN.CNP 10/11/2023 4:37 PM Signed Please call patient. Please let her know that I would highly recommend that she see one of our ENT tobacco buyer physicians. They would be able to discuss with her a biopsy either in the office or the operating room if indicated. Please assist with an appointment for Dr. Rodriguez, Dr. Pope, Dr. Serrano, Dr. Duncan, or Dr. Chowdhury at the patient's earliest convenience. Please let her know that the closest location that we would be able to provide this service would be [place]. Otherwise, we have providers in [facility], or several locations on the East side or in [place] that would be able to help her with this biopsy. Not appropriate for her to see PA or METAL TECHNICIAN must be scheduled with MD only. Thank you, MIGNON Shook Belinda 10/11/2023 7:46 PM Signed Patient returned call to Leann regarding the message Leann left. Patient states to call again at [phone]. Patient will accept any open slot. Allergies As of Date: 10/10/2023 (No Known Allergies) Date Reviewed: 08/10/2023 Reviewed by: Elicia Cross APRN.CNP - Fully Assessed Reason for Visit: Appointment [186] Primary Visit Diagnosis:Oral lesion [K13.70] Order(s):CONSULT TO ENT [9008] Order #: [id number]: 1 FUTURE Prescriptions as of 03/06/2024 - furosemide (LASIX) 20 mg tablet - [...] ORAL Take by mouth as directed. - ajvlxycrw-[id number]-algal oil (METANX, ALGAL OIL,) 3 mg-35 mg-2 mg -90.314 mg cap Take by mouth as directed. Problem List As Of Date 10/10/2023 Noted Resolved CKD (chronic kidney disease) stage 3, GFR 30-59*08/10/2023 DM type 2 (diabetes mellitus, type 2) (HCC) [E1*08/10/2023 HTN (hypertension) [I10] 08/10/2023 Hypothyroidism [E03.9] 08/10/2023 Mixed hyperlipidemia [E78.2] 08/10/2023 Overactive bladder [N32.81] 08/10/2023 Bilateral high frequency sensorineural hearing *08/10/2023 Encounter Status:Closed by PAMELA LANGE on 03/06/24 Normal [facility] BI MAMMOGRAM SCREENING TOMOS YNTHESIS BILATERALon [...] IS VERY IMPORTANT TO YOUR HEALTH. THE [employer] GUIDELINES RECOMMEND THAT WOMEN 40 [...] NOMS. Us or spot compression prn. Prefers [place] location. CNOVon 08-10-2023 CNOV Office Visit (OTOLCC ) -- VIVIAN DURAN ([id number]) 1950 F Date Time Provider Department 08/10/23 8:50 AM [facility] During your visit today, we recorded the following information about you: Pulse Respiration 85/minute 17/minute Elicia Cross, [employer]ISTR[employer]UR[employer]ES[employer] REGISTRY.MACHINE SHOP SPECIALIST 08/10/2023 1:06 PM Signed Ms. Duran is a 72 year old female who [...] evaluation of middle ear function. CPT code: 07416 RIGHT EAR: Normal ME pressure and TM compliance (mobility). LEFT EAR: Normal ME pressure and TM compliance (mobility). PURE TONE AUDIOMETRY AND SPEECH TESTING Description of procedure: This test is an objective evaluation hearing sensitivity via air and bone conduction and speech recognition testing. CPT code:69707 RIGHT EAR: Hearing Sensitivity: Hearing sensitivity within [...] kidney disease) stage 3, GFR 30-59 ml/min ([facility]) DM type 2 (diabetes mellitus, type 2) ([facility]) HTN (hypertension) Hypothyroidism Mixed hyperlipidemia [...] BIOTIN, ORAL Take by mouth as directed. kktfuzjgs-N5-[id number]-algal oil (METANX, ALGAL OIL,) 3 mg-35 mg-2 [...] for lichen (more content not included)... Normal [facility] Office Visit (OTAUCC ) -- VIVIAN DURAN ([id number]) 1950 F Date Time Provider Department 08/10/23 8:00 AM ESTER BLANCA [facility] During your visit today, we recorded the following information about you: Ester Blanca AuD, CCC-A 08/10/2023 10:00 AM Signed [facility] AUDIOLOGIC EVALUATION REPORT Name: Vivian Duran [facility]#: [id number] Date of Service: 08/10/2023 Date of : 1950 Age: [age] year old Referred by: Elicia Cross [address] [place] [address] [place] [id number] Referred for: Evaluation of the cause of disorder of hearing, tinnitus, or balance. Referral documented: In an order in [facility] Patient's major complaints: Hearing Loss/Hearing Problem. Vivian reported she has some trouble hearing/understanding speech and some trouble hearing the dialogue when watching TV unless the volume is louder. Her notices this problem. Patient denies tinnitus. Vivian Duran was seen for an initial audiologic evaluation. See [facility] Audiogram for additional reported history and symptoms. [...] evaluation of middle ear function. CPT code: 37171 RIGHT EAR: Normal ME pressure and TM compliance (mobility). LEFT EAR: Normal ME pressure and TM compliance (mobility). PURE TONE AUDIOMETRY AND SPEECH TESTING Description of procedure: This test is an objective evaluation hearing sensitivity via air and bone conduction and speech recognition testing. CPT code:14766 RIGHT EAR: Hearing Sensitivity: Hearing sensitivity within [...] RECOMMENDATIONS 1. ENT consult today with Elicia Cross APRN.CNP. 2. Recheck as needed. 3. Hearing conservation. Tania Vasquez, PUNEET/A Clinical Catering Truck Operator VILLANUEVA Abbrev- iation Definition Degree of hearing sensitivity dB range WNL within normal limits WNL 0 - 20 SNHL sensorineural hearing loss Mild 20-40 CHL conductive hearing loss Moderate 40-55 MHL mixed hearing loss Moderately-Severe 55-70 WRS word recognition score Severe 70-90 ME middle ear Profound 90 + TM tympanic membrane Referring Provider: ELICIA CROSS [[id number]] Allergies As of Date: 08/10/2023 (No Known Allergies) Date Reviewed: 08/10/2023 Reviewed by: Elicia Cross APRN.CNP - Fully Assessed Primary Visit Diagnosis:Other specified hearing loss, unspecified ear [H91.8X9] Other Visit Diagnosis:Type 2 diabetes mellitus with stage 3a chronic kidney disease, without long-term current use of insulin (HCC) [E11.22, N18.31] Order(s):HEARING TEST/AUDIOGRAM [8503996] Order #: [id number]: 1 Prescriptions as of 08/10/2023 - furosemide [...] mouth as (more content not included)... [facility] PTH, Intact 27 pg/mL Normal 15-65 [facility] Comment on above: Performed By: #### S BIBOTHM #### [facility] [address] [place] [address] Dr. Deloris Nolan HEMOGRAM AND PLATELon 2022 Hematocrit (Bld) [Volume fraction] 41.9 % Normal 36.0-48.0 [facility] Comment on above: Performed By: #### S MOOTHM #### [facility] [address] [place] [address] Dr. Deloris Nolan Hemoglobin (Bld) [Mass/Vol] 12.9 g/dL Normal 12.0-16.0 [facility] Comment on above: Performed By: #### S BIBOTHM #### [facility] [address] [place] [address] Dr. Deloris Nolan MCH (RBC) [Entitic mass] 25.9 pg Critically low 26.7-34.0 [facility] Comment on above: Performed By: #### Alexandra MCCARTNEYOTHM #### [facility] [address] [place] [address] Dr. Deloris Nolan MCHC (RBC) [Mass/Vol] 30.8 g/dL Normal 29.9-35.2 [facility] Comment on above: Performed By: #### Alexandra MCCARTNEYOTHM #### [facility] [address] [place] [address] Dr. Deloris Nolan MCV (RBC) [Entitic vol] 84.1 fL Normal 81.0-99.0 [facility] Comment on above: Performed By: #### S BIBOTHM #### [facility] [address] [place] [address] Dr. Deloris Nolan PLT 212 103/ul Normal 150-450 [facility] Comment on above: Performed By: #### S BIBOTHM #### [facility] [address] [place] [address] Dr. Deloris Nolan RBC 4.98 106/ul Normal 4.20-5.40 [facility] Comment on above: Performed By: #### S TEDDY #### [facility] [address] [place] [address] Dr. Deloris Nolan WBC 7.4 103/ul Normal 4.0-11.0 [facility] Comment on above: Performed By: #### S TEDDY #### [facility] [address] [place] [address] Dr. Deloris Nolan RENAL FUNCTION PANELon 02-12 Albumin [Mass/Vol] 3.6 g/dL Normal 3.4-5.0 [facility] Comment on above: Performed By: #### A LPHA-1 #### [facility] [address] [place] [address] Dr. Deloris Nolan Calcium [Mass/Vol] 9.3 mg/dL Normal 8.5-10.1 [facility] Comment on above: Performed By: #### A LPHA-1 #### [facility] [address] [place] [address] Dr. Deloris Nolan Chloride [Moles/Vol] 104 mmol/L Normal 98-107 [facility] Comment on above: Performed By: #### A LPHA-1 #### [facility] [address] [place] [address] Dr. Deloris Nolan CO2 [Moles/Vol] 28.3 mmol/L Normal 21.0-32.0 [facility] Comment on above: Performed By: #### A LPHA-1 #### [facility] [address] [place] [address] Dr. Deloris Nolan Creatinine [Mass/Vol] 1.00 mg/dL Normal 0.55-1.02 [facility] Comment on above: Performed By: #### A LPHA-1 #### [facility] [address] [place] [address] Dr. Deloris Nolan EGFR-AF [place] >60 Normal >=60 [facility] Comment on above: Performed By: #### A LPHA-1 #### [facility] [address] [place] [address] Dr. Deloris Nolan EGFR-NON AF [place] 55 mL/min/1.73m2 Critically low >=60 [facility] Comment on above: Performed By: #### A LPHA-1 #### [facility] [address] [address] [address] Deloris Nolan Glucose [Mass/Vol] 155 mg/dL Critically high 74-106 T [facility] Comment on above: Performed By: #### A LPHA-1 #### [facility] [address] [address] [address] Deloris Nolan Phosphate [Mass/Vol] 3.8 mg/dL Normal 2.6-4.7 [facility] Comment on above: Performed By: #### A LPHA-1 #### [facility] [address] [place] [address] Dr. Deloris Nolan Potassium [Moles/Vol] 4.4 mmol/L Normal 3.5-5.1 [facility] Comment on above: Performed By: #### A LPHA-1 #### [facility] [address] [place] [address] Dr. Deloris Nolan Sodium [Moles/Vol] 140 mmol/L Normal 136-145 [facility] Comment on above: Performed By: #### A LPHA-1 #### [facility] [address] [place] [address] Dr. Deloris Nolan Urea nitrogen [Mass/Vol] 21.0 mg/dL Critically high 7.0-18.0 [facility] Comment on above: Performed By: #### A LPHA-1 #### [facility] [address] [place] [address] Dr. Deloris Nolan UA RANDOM W/MICROSCOPICon BACTERIA NONE SEEN Normal NONE SEEN [facility] Comment on above: Performed By: #### U AMIC #### [facility] [address] [place] [address] Dr. Deloris Nolan Bilirubin Ql (U) Negative Normal NEGATIVE [facility] Comment on above: Performed By: #### U AMIC #### [facility] [address] [place] [address] Dr. Deloris Nolan CAST NONE SEEN Normal NONE SEEN [facility] Comment on above: Performed By: #### U AMIC #### [facility] [address] [address] [address] Deloris Nolan Clarity (U) CLEAR Normal CLEAR [facility] Comment on above: Performed By: #### U AMIC #### [facility] [address] [address] [address] Deloris Nolan Color (U) LT. YELLOW Normal YELLOW [facility] Comment on above: Performed By: #### U AMIC #### [facility] [address] [address] [address] Deloris Nolan Crystals LM Nom (Urine sed) NONE SEEN Normal NONE SEEN [facility] Comment on above: Performed By: #### U AMIC #### [facility] [address] [place] [address] Dr. Deloris Nolan Epithelial cells LM Ql (Urine sed) FEW Abnormal NONE SEEN /RARE [facility] Comment on above: Result Comment: Prev iously reported as: NONE SEEN On 02/12/2023 10:35 By EM6 Performed By: #### U AMIC #### [facility] [address] [place] [address] Dr. Deloris Nolan Glucose Ql (U) >1000 Abnormal NEGATIVE [facility] Comment on above: Performed By: #### U AMIC #### [facility] [address] [address] [address] Deloris Nolan Hemoglobin Ql (U) SMALL Abnormal NEGATIVE [facility] Comment on above: Performed By: #### U AMIC #### [facility] [address] [address] [address] Deloris Nolan Ketones Ql (U) Negative Normal NEGATIVE [facility] Comment on above: Performed By: #### U AMIC #### [facility] [address] [address] [address] Deloris Nolan LEUKOCYTES Negative Normal NEGATIVE [facility] Comment on above: Performed By: #### U AMIC #### [facility] [address] [address] [address] Deloris Nolan MUCOUS NONE SEEN Normal NONE SEEN [facility] Comment on above: Performed By: #### U AMIC #### [facility] [address] [place] [address] Dr. Deloris Nolan Nitrite Ql (U) Negative Normal NEGATIVE [facility] Comment on above: Performed By: #### U AMIC #### [facility] [address] [place] [address] Dr. Deloris Nolan pH (U) 6.5 [pH] Normal 5-9 [facility] Comment on above: Performed By: #### U AMIC #### [facility] [address] [place] [address] Dr. Deloris Nolan RBC 5-10 Abnormal 0-2 [facility] Comment on above: Result Comment: Prev iously reported as: NONE SEEN On 02/12/2023 10:35 By EM6 Performed By: #### U AMIC #### [facility] [address] [place] [address] Dr. Deloris Nolan SPEC GRAVITY 1.015 Normal 1.005-<=1. 025 [facility] Comment on above: Performed By: #### U AMIC #### [facility] [address] [place] [address] Dr. Deloris Nolan UA PROTEIN Negative Normal NEGATIVE/ TRACE [facility] Comment on above: Performed By: #### U AMIC #### [facility] [address] [place] [address] Dr. Deloris Nolan Urobilinogen Qn (U) 0.2 {Juan Diego'U}/dL Normal 0.2 - 1. 0 [facility] Comment on above: Performed By: #### U AMIC #### [facility] [address] [place] [address] Dr. Deloris Nolan WBC NONE SEEN Normal NONE SEEN [facility] Comment on above: Performed By: #### U AMIC #### [facility] [address] [place] [address] Dr. Deloris Nolan URIC ACID SERUMon 02-12-2023 Urate [Mass/Vol] 6.1 mg/dL Critically high 2.6-6.0 [facility] Comment on above: Performed By: #### A LPHA-1 #### [facility] [address] [place] [address] Dr. Deloris Nolan URINE T PROTEIN CREAT RATIOo n 02-12-2023 Protein (U) [Mass/Vol] 8.7 mg/dL Normal <=12.0 [facility] Comment on above: Performed By: #### S MOOTHM #### [facility] [address] [place] [address] Dr. Deloris Nolan UR PROT CREAT RAT 0.10 Normal [facility] Comment on above: Performed By: #### S BIBOTHM #### [facility] [address] [place] [address] Dr. Deloris Nolan URINE CREAT 84.26 mg/dL Normal 20.00-300. 00 [facility] Comment on above: Performed By: #### S WAGNERM #### [facility] [address] [place] [address] Dr. Deloris Nolan VITAMIN D 25 OHon 02-12-2023 VIT D 25-OH 41.6 ng/mL Normal [facility] Comment on above: Performed By: #### V ITAD #### [facility] [address] [place] [address] Dr. Deloris Nolan VIT D RANGES SEE BELOW Normal [facility] Comment on above: Result Comment: <20 ng/mL Vit D deficient 20 - <30 ng/mL Vit D insufficient 30 - 100 ng/mL Vit D sufficient >100 ng/mL Potential Toxicity Performed By: #### V ITAD #### [facility] [address] [place] [address] Dr. Deloris Nolan XR Chest 2 Views*on [...] by Estrada Cummins on 11/13/2022 1510 Normal [facility] SCREENING MAMMOGRAM W/LAKESHA, BILATERAL*on 10-04-2022 SCREENING MAMMOGRAM W/LAKESHA, BILATERAL* COMPARISON: August 22, 2021, August 19, 2020 TECHNIQUE: 2D and 3D Tomosynthesis of the right and left breasts was performed. FINDINGS: Breast composition demonstrates scattered fibroglandular densities. Overall appearance is stable. No suspicious microcalcifications, asymmetry, architectural distortion, or associated features are present. IMPRESSION: BIRADS 1: Negative mammogram Board Certified Radiologist. Accredited by the ACR and FDA. MAMMOGRAPHY IS VERY IMPORTANT TO YOUR HEALTH. THE CURRENT [place] [employer] GUIDELINES RECOMMENDS ANNUAL MAMMOGRAPHY BEGINNING AT AGE 40 THIS FACILITY USES A REMINDER SYSTEM TO ENSURE ALL PATIENTS RECEIVE REMINDER NOTIFICATIONS AT THE APPROPRIATE TIME BASED ON THE RECOMMENDATIONS OF THIS EXAM. Report reported and signed by Ravi Naranjo on 10/04/2022 1544 Normal [facility] [id number] 2021 Rlcyx-5-Jimrilkhvec, Serum 144 mg/dL Normal 101-187 [facility] Comment on above: Performed By: #### A LPHA-1 #### [facility] [address] [place] [address] Dr. Deloris Nolan GREG EIA W/REFLEX 9 BIOMARKER Son 08-30-2022 GREG Direct Negative Normal Negative [facility] Comment on above: Performed By: #### A NARF9 #### [facility] [address] [address] [address] Deloris Nolan CERULOPLASMINon 08-30-2022 Ceruloplasmin 20.6 mg/dL Normal 19.0-39.0 [facility] Comment on above: Performed By: #### S MOOTHM #### [facility] [address] [place] [address] Dr. Deloris Nolan SMOOTH MUSCLE ANTIBODYon Actin (Smooth Muscle) Antibody 7 Units Normal 0-19 [facility] Comment on above: Result Comment: Nega tive 0 - 19 Weak positive 20 - 30 Moderate to strong positive >30 . Actin Antibodies are found in 52-85% of patients with autoimmune hepatitis or chronic active hepatitis and in 22% of patients with primary biliary cirrhosis. Performed By: #### S WAGNERM #### [facility] [address] [place] [address] Dr. Deloris Nolan CBC AUTO DIFFon 2022 BASO # 0.0 103/ul Normal 0.0-0.1 [facility] Comment on above: Performed By: #### S WAGNERM #### [facility] [address] [place] [address] Dr. Deloris Nolan Basophils/100 WBC (Bld) 0.5 % Normal 0.2-2.0 [facility] Comment on above: Performed By: #### S WAGNERM #### [facility] [address] [place] [address] Dr. Deloris Nolan EO # 0.3 103/ul Normal 0.0-0.7 [facility] Comment on above: Performed By: #### S WAGNERM #### [facility] [address] [place] [address] Dr. Deloris Nolan Eosinophils/100 WBC (Bld) 3.2 % Normal 0.9-7.0 [facility] Comment on above: Performed By: #### S WAGNERM #### [facility] [address] [place] [address] Dr. Deloris Nolan Erythrocyte distribution width (RBC) [Ratio] 13.6 % Normal 11.0-15.0 [facility] Comment on above: Performed By: #### S WAGNERM #### [facility] [address] [place] [address] Dr. Deloris Nolan Hematocrit (Bld) [Volume fraction] 40.6 % Normal 36.0-48.0 [facility] Comment on above: Performed By: #### S WAGNERM #### [facility] [address] [place] [address] Dr. Deloris Nolan Hemoglobin (Bld) [Mass/Vol] 13.6 g/dL Normal 12.0-16.0 [facility] Comment on above: Performed By: #### S WAGNERM #### [facility] [address] [address] [address] Deloris Nolan IG # 0.03 10e3/ul Normal 0.00-0.03 [facility] Comment on above: Performed By: #### S WAGNERM #### [facility] [address] [address] [address] Deloris Nolan IG % 0.4 % Normal 0.0-0.5 [facility] Comment on above: Performed By: #### S WAGNERM #### [facility] [address] [address] [address] Deloris Nolan LYMPH # 2.4 103/ul Normal 1.2-3.8 [facility] Comment on above: Performed By: #### S WAGNERM #### [facility] [address] [place] [address] Dr. Deloris Nolan Lymphocytes/100 WBC (Bld) 31.6 % Normal 20.5-60.0 [facility] Comment on above: Performed By: #### S WAGNERM #### [facility] [address] [place] [address] Dr. Deloris Nolan MANUAL DIFF REQ NO Normal [facility] Comment on above: Performed By: #### S WAGNERM #### [facility] [address] [place] [address] Dr. Deloris Nolan MCH (RBC) [Entitic mass] 29.3 pg Normal 26.7-34.0 [facility] Comment on above: Performed By: #### S WAGNERM #### [facility] [address] [place] [address] Dr. Deloris Nolan MCHC (RBC) [Mass/Vol] 33.5 g/dL Normal 29.9-35.2 [facility] Comment on above: Performed By: #### S WAGNERM #### [facility] [address] [place] [address] Dr. Deloris Nolan MCV (RBC) [Entitic vol] 87.5 fL Normal 81.0-99.0 [facility] Comment on above: Performed By: #### S WAGNERM #### [facility] [address] [address] [address] Deloris Nolan MONO # 0.6 103/ul Normal 0.3-0.8 [facility] Comment on above: Performed By: #### S MOOTHM #### [facility] [address] [address] [address] Deloris Nolan Monocytes/100 WBC (Bld) 7.9 % Normal 1.7-12.0 [facility] Comment on above: Performed By: #### S MOOTHM #### [facility] [address] [place] [address] Dr. Deloris Nolan NEUT # 4.3 103/ul Normal 1.4-6.5 [facility] Comment on above: Performed By: #### S BIBOTHM #### [facility] [address] [place] [address] Dr. Deloris Nolan Neutrophils/100 WBC (Bld) 56.4 % Normal 43.0-75.0 [facility] Comment on above: Performed By: #### S MOOTHM #### [facility] [address] [place] [address] Dr. Deloris Nolan Platelet mean volume (Bld) [Entitic vol] 9.0 fL Critically low 9.5-13.5 [facility] Comment on above: Performed By: #### S MOOTHM #### [facility] [address] [place] [address] Dr. Deloris Nolan PLT 201 103/ul Normal 150-450 [facility] Comment on above: Performed By: #### S MOOTHM #### [facility] [address] [place] [address] Dr. Deloris Nolan RBC 4.64 106/ul Normal 4.20-5.40 [facility] Comment on above: Performed By: #### S MOOTHM #### [facility] [address] [place] [address] Dr. Deloris Nolan WBC 7.7 103/ul Normal 4.0-11.0 [facility] Comment on above: Performed By: #### S MOOTHM #### [facility] [address] [address] [address] Deloris Nolan FERRITINon 2022 Ferritin [Mass/Vol] 102.0 ng/mL Normal 8.0-252.0 [facility] Comment on above: Performed By: #### S MOOTHM #### [facility] [address] [address] [address] Deloris Nolan IRON AND TIBCon 2022 % SATURATION 17.1 % Normal [facility] Comment on above: Performed By: #### S MOOTHM #### [facility] [address] [place] [address] Dr. Deloris Nolan Iron [Mass/Vol] 68.0 ug/dL Normal 50.0-170.0 [facility] Comment on above: Performed By: #### S MOOTHM #### [facility] [address] [place] [address] Dr. Deloris Nolan TIBC DIRECT 398.0 ug/dL Normal 250.0-450. 0 [facility] Comment on above: Performed By: #### S MOOTHM #### [facility] [address] [place] [address] Dr. Deloris Nolan LIVER PROFILEon 2022 Albumin [Mass/Vol] 3.8 g/dL Normal 3.4-5.0 [facility] Comment on above: Performed By: #### S MOOTHM #### [facility] [address] [place] [address] Dr. Deloris Nolan Albumin/Globulin [Mass ratio] 0.9 {ratio} Normal [facility] Comment on above: Performed By: #### S MOOTHM #### [facility] [address] [place] [address] Dr. Deloris Nolan ALP [Catalytic activity/Vol] 71 U/L Normal 46-116 [facility] Comment on above: Performed By: #### S MOOTHM #### [facility] [address] [place] [address] Dr. Deloris Nolan ALT [Catalytic activity/Vol] 109 U/L Critically high 14-59 [facility] Comment on above: Performed By: #### S MOOTHM #### [facility] [address] [address] [address] Deloris Nolan AST [Catalytic activity/Vol] 87 U/L Critically high 15-37 [facility] Comment on above: Performed By: #### S MOOTHM #### [facility] [address] [address] [address] Deloris Nolan BILI, CONJUGATED 0.1 mg/dL Normal 0.0-0.2 [facility] Comment on above: Performed By: #### S MOOTHM #### [facility] [address] [place] [address] Dr. Deloris Nolan Bilirubin [Mass/Vol] 0.3 mg/dL Normal 0.2-1.0 [facility] Comment on above: Performed By: #### S MOOTHM #### [facility] [address] [place] [address] Dr. Deloris Nolan Globulin (S) [Mass/Vol] 4.0 g/dL Normal [facility] Comment on above: Performed By: #### S MOOTHM #### [facility] [address] [place] [address] Dr. Deloris Nolan Protein [Mass/Vol] 7.8 g/dL Normal 6.4-8.2 [facility] Comment on above: Performed By: #### S MOOTHM #### [facility] [address] [place] [address] Dr. Deloris Nolan PROTIMEon 2022 INR Coag (PPP) [Relative time] 1.06 {INR} Normal [facility] Comment on above: Performed By: #### S MOOTHM #### [facility] [address] [place] [address] Dr. Deloris Nolan INR GUIDELINES SEE BELOW Normal [facility] Comment on above: Result Comment: NILDA RED INR: 2.0 - 3.0 CONDITIONS NOT LISTED BELOW 2.5 - 3.5 FOR PROSTHETIC HEART VALVE REPLACEMENT 2.5 - 3.5 RECURRENT THROMBOSIS Performed By: #### S MOOTHM #### [facility] [address] [place] [address] Dr. Deloris Nolan PT Coag (PPP) [Time] 11.4 s Normal 9.0-11.6 [facility] Comment on above: Performed By: #### S TEDDY #### [facility] [address] [place] [address] Dr. Deloris Nolan HEMOGRAM AND PLATELon 2021 Hematocrit (Bld) [Volume fraction] 42.9 % Normal 36.0-48.0 [facility] Comment on above: Performed By: #### H H #### [facility] [address] [place] [address] Dr. Deloris Nolan Hemoglobin (Bld) [Mass/Vol] 14.0 g/dL Normal 12.0-16.0 [facility] Comment on above: Performed By: #### H H #### [facility] [address] [place] [address] Dr. Deloris Nolan MCH (RBC) [Entitic mass] 29.1 pg Normal 26.7-34.0 [facility] Comment on above: Performed By: #### H H #### [facility] [address] [place] [address] Dr. Deloris Nolan MCHC (RBC) [Mass/Vol] 32.6 g/dL Normal 29.9-35.2 [facility] Comment on above: Performed By: #### H H #### [facility] [address] [place] [address] Dr. Deloris Nolan MCV (RBC) [Entitic vol] 89.2 fL Normal 81.0-99.0 [facility] Comment on above: Performed By: #### H H #### [facility] [address] [place] [address] Dr. Deloris Nolan PLT 237 103/ul Normal 150-450 [facility] Comment on above: Performed By: #### H H #### [facility] [address] [place] [address] Dr. Deloris Nolan RBC 4.81 106/ul Normal 4.20-5.40 [facility] Comment on above: Performed By: #### H H #### [facility] [address] [place] [address] Dr. Deloris Nolan WBC 8.2 103/ul Normal 4.0-11.0 [facility] Comment on above: Performed By: #### H H #### [facility] [address] [place] [address] Dr. Deloris Nolan MAGNESIUMon 08-08-2022 Magnesium [Mass/Vol] 2.0 mg/dL Normal 1.8-2.4 [facility] Comment on above: Performed By: #### M G, URIC, RENAL #### [facility] [address] [place] [address] Dr. Deloris Nolan RENAL FUNCTION PANELon 08-08 Albumin [Mass/Vol] 3.7 g/dL Normal 3.4-5.0 [facility] Comment on above: Performed By: #### M G, URIC, RENAL #### [facility] [address] [place] [address] Dr. Deloris Nolan Calcium [Mass/Vol] 9.0 mg/dL Normal 8.5-10.1 [facility] Comment on above: Performed By: #### M G, URIC, RENAL #### [facility] [address] [place] [address] Dr. Deloris Nolan Chloride [Moles/Vol] 100 mmol/L Normal 98-107 [facility] Comment on above: Performed By: #### M G, URIC, RENAL #### [facility] [address] [place] [address] Dr. Deloris Nolan CO2 [Moles/Vol] 30.6 mmol/L Normal 21.0-32.0 [facility] Comment on above: Performed By: #### M G, URIC, RENAL #### [facility] [address] [place] [address] Dr. Deloris Nolan Creatinine [Mass/Vol] 0.94 mg/dL Normal 0.55-1.02 [facility] Comment on above: Performed By: #### M G, URIC, RENAL #### [facility] [address] [place] [address] Dr. Deloris Nolan EGFR-AF MOROCCAN >60 Normal >=60 [facility] Comment on above: Performed By: #### M G, URIC, RENAL #### [facility] [address] [place] [address] Dr. Deloris Nolan EGFR-NON AF MOROCCAN 59 mL/min/1.73m2 Critically low >=60 [facility] Comment on above: Performed By: #### M G, URIC, RENAL #### [facility] [address] [place] [address] Dr. Deloris Nolan Glucose [Mass/Vol] 161 mg/dL Critically high 74-106 T [facility] Comment on above: Performed By: #### M G, URIC, RENAL #### [facility] [address] [place] [address] Dr. Deloris Nolan Phosphate [Mass/Vol] 3.3 mg/dL Normal 2.6-4.7 [facility] Comment on above: Performed By: #### M G, URIC, RENAL #### [facility] [address] [place] [address] Dr. Deloris Nolan Potassium [Moles/Vol] 4.3 mmol/L Normal 3.5-5.1 [facility] Comment on above: Performed By: #### M G, URIC, RENAL #### [facility] [address] [place] [address] Dr. Deloris Nolan Sodium [Moles/Vol] 136 mmol/L Normal 136-145 [facility] Comment on above: Performed By: #### M G, URIC, RENAL #### [facility] [address] [place] [address] Dr. Deloris Nolan Urea nitrogen [Mass/Vol] 15.0 mg/dL Normal 7.0-18.0 [facility] Comment on above: Performed By: #### M G, URIC, RENAL #### [facility] [address] [place] [address] Dr. Deloris Nolan UA RANDOM W/MICROSCOPICon BACTERIA SMALL Abnormal NONE SEEN [facility] Comment on above: Performed By: #### S TEDDY #### [facility] [address] [place] [address] Dr. Deloris Nolan Bilirubin Ql (U) Negative Normal NEGATIVE [facility] Comment on above: Performed By: #### S MOOTHM #### [facility] [address] [place] [address] Dr. Deloris Nolan CAST NONE SEEN Normal NONE SEEN [facility] Comment on above: Performed By: #### S MOOTHM #### [facility] [address] [place] [address] Dr. Deloris Nolan Clarity (U) CLEAR Normal CLEAR [facility] Comment on above: Performed By: #### S MOOTHM #### [facility] [address] [place] [address] Dr. Deloris Nolan Color (U) LT. YELLOW Normal YELLOW [facility] Comment on above: Performed By: #### S MOOTHM #### [facility] [address] [place] [address] Dr. Deloris Nolan Crystals LM Nom (Urine sed) NONE SEEN Normal NONE SEEN [facility] Comment on above: Performed By: #### S MOOTHM #### [facility] [address] [place] [address] Dr. Deloris Nolan Epithelial cells LM Ql (Urine sed) FEW Abnormal NONE SEEN /RARE [facility] Comment on above: Performed By: #### S MOOTHM #### [facility] [address] [place] [address] Dr. Deloris Nolan Glucose Ql (U) Negative Normal NEGATIVE [facility] Comment on above: Performed By: #### S MOOTHM #### [facility] [address] [place] [address] Dr. Deloris Nolan Hemoglobin Ql (U) Negative Normal NEGATIVE [facility] Comment on above: Performed By: #### S MOOTHM #### [facility] [address] [place] [address] Dr. Deloris Nolan Ketones Ql (U) Negative Normal NEGATIVE [facility] Comment on above: Performed By: #### S MOOTHM #### [facility] [address] [place] [address] Dr. Deloris Nolan LEUKOCYTES SMALL Abnormal NEGATIVE [facility] Comment on above: Performed By: #### S MOOTHM #### [facility] [address] [address] [address] Deloris Nolan MUCOUS NONE SEEN Normal NONE SEEN [facility] Comment on above: Performed By: #### S MOOTHM #### [facility] [address] [place] [address] Dr. Deloris Nolan Nitrite Ql (U) Negative Normal NEGATIVE [facility] Comment on above: Performed By: #### S MOOTHM #### [facility] [address] [place] [address] Dr. Deloris Nolan pH (U) 6.0 [pH] Normal 5-9 [facility] Comment on above: Performed By: #### S MOOTHM #### [facility] [address] [place] [address] Dr. Deloris Nolan RBC NONE SEEN Abnormal 0-2 [facility] Comment on above: Performed By: #### S MOOTHM #### [facility] [address] [place] [address] Dr. Deloris Nolan SPEC GRAVITY 1.015 Normal 1.005-<=1. 025 [facility] Comment on above: Performed By: #### S MOOTHM #### [facility] [address] [place] [address] Dr. Deloris Nolan UA PROTEIN Negative Normal NEGATIVE/ TRACE [facility] Comment on above: Performed By: #### S MOOTHM #### [facility] [address] [place] [address] Dr. Deloris Nolan Urobilinogen Qn (U) 0.2 {Juan Diego'U}/dL Normal 0.2 - 1. 0 [facility] Comment on above: Performed By: #### S MOOTHM #### [facility] [address] [place] [address] Dr. Deloris Nolan WBC 2-5 Abnormal NONE SEEN [facility] Comment on above: Performed By: #### S MOOTHM #### [facility] [address] [place] [address] Dr. Deloris Nolan URIC ACID SERUMon 08-08-2022 Urate [Mass/Vol] 7.7 mg/dL Critically high 2.6-6.0 [facility] Comment on above: Performed By: #### M G, URIC, RENAL #### [facility] [address] [place] [address] Dr. Deloris Nolan URINE T PROTEIN CREAT RATIOo n 08-08-2022 Protein (U) [Mass/Vol] 12.2 mg/dL Critically high <=12.0 [facility] Comment on above: Performed By: #### U RTPCR #### [facility] [address] [place] [address] Dr. Deloris Nolan UR PROT CREAT RAT 0.10 Normal [facility] Comment on above: Performed By: #### U RTPCR #### [facility] [address] [place] [address] Dr. Deloris Nolan URINE CREAT 123.93 mg/dL Normal 20.00-300. 00 [facility] Comment on above: Performed By: #### U RTPCR #### [facility] [address] [place] [address] Dr. Deloris Nolan VITAMIN D 25 OHon 08-08-2022 VIT D 25-OH 45.3 ng/mL Normal [facility] Comment on above: Performed By: #### A LPHA-1 #### [facility] [address] [place] [address] Dr. Deloris Nolan VIT D RANGES SEE BELOW Normal [facility] Comment on above: Result Comment: <20 ng/mL Vit D deficient 20 - <30 ng/mL Vit D insufficient 30 - 100 ng/mL Vit D sufficient >100 ng/mL Potential Toxicity Performed By: #### A LPHA-1 #### [facility] [address] [place] [address] Dr. Deloris Nolan XR Chest 2 Views*on [...] by Ravi Naranjo on 07/11/2022 0719 Normal [facility] MRI Shoulder w/o Righton MRI Shoulder w/o [...] by Blanco Tanner on 05/18/2022 1247 Normal [facility] Specialist HEARING TEST/AUDIOGRAM [facility] Vital Signs Date Time Vital Sign Value Performing Clinician Facility 08-27-2023 13:40-0500 Body height 172.72 cm Julien Ronald Other [facility] Other 08-27-2023 13:40-0500 Body mass index (BMI) [Ratio] 32.54 kg/m2 Julien Ronald Other [facility] Other 08-27-2023 13:40-0500 Body temperature 97.8 [degF] Julien Ronald Other [facility] Other 08-27-2023 13:40-0500 Body weight 97.07 kg Julien Ronald Other [facility] Other 08-27-2023 13:40-0500 Diastolic blood pressure 84 mm[Hg] Julien Ronald Other [facility] Other 08-27-2023 13:40-0500 Respiratory rate 18 /min Julien Ronald Other [facility] Other 08-27-2023 13:40-0500 SaO2% (BldA) [Mass fraction] 98 % Julien Ronald Other [facility] Other 08-27-2023 13:40-0500 Systolic blood pressure 141 mm[Hg] Julien Ronald Other [facility] Other 08-10-2023 08:50-0400 Heart rate 85 /min Elicia Cross APRN.MACHINE SHOP SPECIALIST Work Phone: [facility] 08-10-2023 08:50-0400 Respiratory rate 17 /min Elicia Cross APRN.MACHINE SHOP SPECIALIST Work Phone: [facility] 08-10-2023 08:50-0400 SaO2% (BldA) [Mass fraction] 97 % Elicia Cross APRN.MACHINE SHOP SPECIALIST Work Phone: [facility] 12-26-2022 11:30-0400 Body height 172.72 cm Jignesh Sargent Other [facility] Other 12-26-2022 11:30-0400 Body mass index (BMI) [Ratio] 34.06 kg/m2 Jignesh Sargent Other [facility] Other 12-26-2022 11:30-0400 Body weight 101.61 kg Jignesh Sargent Other [facility] Other 12-26-2022 11:30-0400 Diastolic blood pressure 70 mm[Hg] Jignesh Dianthonyy Other [facility] Other 12-26-2022 11:30-0400 Systolic blood pressure 125 mm[Hg] Jignesh Ditty Other [facility] Other 08-22-2022 10:45-0500 Body height 172.72 cm Jignesh Ditty Other [facility] Other 08-22-2022 10:45-0500 Body mass index (BMI) [Ratio] 34.97 kg/m2 Jignesh Ditty Other [facility] Other 08-22-2022 10:45-0500 Body weight 104.33 kg Jignesh Israely Other [facility] Other 08-22-2022 10:45-0500 Diastolic blood pressure 74 mm[Hg] Jignesh Ditty Other [facility] Other 08-22-2022 10:45-0500 Systolic blood pressure 123 mm[Hg] Jignesh Ditty Other [facility] Other 08-22-2022 10:19-0500 Body weight 0 kg MD Wendy Chinchilla Work Phone: [facility] 08-14-2022 11:00-0500 Body height 172.72 cm Julien Ronald Other [facility] Other 08-14-2022 11:00-0500 Body mass index (BMI) [Ratio] 35.64 kg/m2 Julien Ronald Other [facility] Other 08-14-2022 11:00-0500 Body temperature 96.8 [degF] Julien Ronald Other [facility] Other 08-14-2022 11:00-0500 Body weight 106.32 kg Julien Ronald Other [facility] Other 08-14-2022 11:00-0500 Diastolic blood pressure 82 mm[Hg] Julien Ronald Other [facility] Other 08-14-2022 11:00-0500 Respiratory rate 18 /min Julien Ronald Other [facility] Other 08-14-2022 11:00-0500 SaO2% (BldA) [Mass fraction] 97 % Julien Ronald Other [facility] Other 08-14-2022 11:00-0500 Systolic blood pressure 131 mm[Hg] Julien Ronald Other [facility] Other 02-13-2022 10:20-0400 Body height 172.72 cm Julien Ronald Other [facility] Other 02-13-2022 10:20-0400 Body mass index (BMI) [Ratio] 36.18 kg/m2 Julien Ronald Other [facility] Other 02-13-2022 10:20-0400 Body temperature 96.8 [degF] Julien Ronald Other [facility] Other 02-13-2022 10:20-0400 Body weight 107.96 kg Julien Ronald Other [facility] Other 02-13-2022 10:20-0400 Diastolic blood pressure 70 mm[Hg] Julien Ronald Other [facility] Other 02-13-2022 10:20-0400 Respiratory rate 18 /min Julien Ronald Other [facility] Other 02-13-2022 10:20-0400 SaO2% (BldA) [Mass fraction] 98 % Julien Ronald Other [facility] Other 02-13-2022 10:20-0400 Systolic blood pressure 118 mm[Hg] Julien Ronald Other [facility] Other 08-10-2021 14:00-0400 Body height 172.72 cm Julien Ronald Other [facility] Other 08-10-2021 14:00-0400 Body mass index (BMI) [Ratio] 35.79 kg/m2 Julien Ronald Other [facility] Other 08-10-2021 14:00-0400 Body temperature 97 [degF] Julien Ronald Other [facility] Other 08-10-2021 14:00-0400 Body weight 106.78 kg Julien Ronald Other [facility] Other 08-10-2021 14:00-0400 Diastolic blood pressure 82 mm[Hg] Julien Ronald Other [facility] Other 08-10-2021 14:00-0400 Respiratory rate 18 /min Julien Ronald Other [facility] Other 08-10-2021 14:00-0400 SaO2% (BldA) [Mass fraction] 96 % Julien Ronald Other [facility] Other 08-10-2021 14:00-0400 Systolic blood pressure 126 mm[Hg] Julien Ronald Other [facility] Other Encounters Encounter Date Encounter Type Care Provider Facility Start: 08-06-2024 End: 08-06-2024 Telephone encounter Wendy Chinchilla MD Work Phone: [facility] Start: 08-05-2024 End: 08-05-2024 Refill Wendy Chinchilla MD Work Phone: [facility] Comment on above: Type 2 diabetes bin itus with diabetic polyneuropathy, without long-term current use of insulin ([facility]) Start: 08-02-2024 End: 08-02-2024 Refill Ayse Sewell NP Work Phone: [facility] Comment on above: Primary hypertension ([facility]) Start: 07-26-2024 End: 07-28-2024 Refill Wendy Chinchilla MD Work Phone: [facility] Comment on above: Type 2 diabetes bin itus with stage 2 chronic kidney disease, without long-term current use of insulin ([facility]/HCC) Start: 07-21-2024 End: 07-21-2024 Bamboo flowsheet Satish A Felter [employer] NURSES' REGISTRY-MACHINE SHOP SPECIALIST Work Phone: [facility] Start: 07-21-2024 End: 07-21-2024 Bamboo flowsheet Satish A Felter [employer]URS[employer]' REGISTRY-MACHINE SHOP SPECIALIST Work Phone: [facility] Start: 07-21-2024 End: 07-21-2024 ambulatory SATISH A FELTER Not Available Start: 07-21-2024 End: 07-21-2024 Office outpatient visit 15 minutes Satish Koo [employer] REGISTRY-MACHINE SHOP SPECIALIST Work Phone: [facility] Comment on above: Seborrheic keratosis (Primary Dx); Melanocytic nevus of trunk; Capillary angioma Start: 07-19-2024 End: 07-21-2024 Refill Ayse Donato METAL TECHNICIAN Work Phone: [facility] Comment on above: Type 2 diabetes bin itus with stage 2 chronic kidney disease, without long-term current use of insulin ([facility]) Start: 07-15-2024 End: 07-15-2024 ambulatory WENDY CHINCHILLA [facility] Start: 07-03-2024 End: 07-03-2024 ambulatory WENDY CHINCHILLA Not Available Start: 07-02-2024 End: 07-02-2024 ambulatory WENDY CHINCHILLA Not Available Start: 06-17-2024 End: 06-17-2024 ambulatory REBECA HERRERA Not Available Start: 06-13-2024 End: 06-13-2024 ambulatory WENDY CHINCHILLA Not Available Start: 06-02-2024 End: 06-02-2024 ambulatory DOLLY DONG Not Available Start: 05-21-2024 End: 05-21-2024 ambulatory BARB RICHARDS Not Available Start: 05-20-2024 End: 05-20-2024 ambulatory WENDY CHINCHILLA Not Available Start: 05-01-2024 End: 05-01-2024 ambulatory WENDY CHINCHILLA Not Available Start: 03-13-2024 End: 03-13-2024 ambulatory WENDY CHINCHILLA Not Available Start: 02-19-2024 End: 02-19-2024 ambulatory [place] Hernandez Facility:[facility] Start: 01-03-2024 End: 01-03-2024 ambulatory [place] Hernandez Facility:[facility] Start: 01-03-2024 End: 01-03-2024 ambulatory MD Wendy Chinchilla Work Phone: [facility] Work Phone: Start: 01-03-2024 End: 01-03-2024 Patient encounter procedure MD Wendy Chinchilla Work Phone: [facility] Work Phone: Start: 12-27-2023 End: 12-27-2023 ambulatory [place] Hernandez Facility:[facility] Start: 12-27-2023 End: 12-27-2023 ambulatory MD Wendy Chinchilla Work Phone: [facility] Work Phone: Start: 12-27-2023 End: 12-27-2023 Patient encounter procedure MD Wendy Chinchilla Work Phone: [facility] [place] Work Phone: Start: 12-07-2023 End: 12-07-2023 ambulatory WENDY CHINCHILLA Not Available Start: 11-27-2023 End: 11-27-2023 ambulatory JOHN HIGGINS Not Available Start: 11-26-2023 End: 11-26-2023 ambulatory MORENA FARR Not Available Start: 11-19-2023 End: 11-19-2023 ambulatory Zander Cline [employer] [facility] Comment on above: DDD (degenerative di sc disease), lumbar (Primary Dx); DDD (degenerative disc disease), thoracic Type 2 diabetes bin itus without complication, without long-term current use of insulin ([facility]) Start: 11-19-2023 Bamboo flowsheet Zander Lawrharriett nce [employer]TURE BUILDER [facility] Start: 11-19-2023 Bamboo flowsheet Zander Velazquez nce [employer] BUILDER [facility] Start: 11-15-2023 End: 11-15-2023 ambulatory Zander Cline [employer] [facility] Comment on above: DDD (degenerative di sc disease), lumbar (Primary Dx); DDD (degenerative disc disease), thoracic Start: 11-13-2023 End: 11-13-2023 ambulatory ZANDER CLINE Not Available Start: 11-12-2023 End: 11-12-2023 ambulatory JENNI SERRANO Facility:[facility] Start: 11-12-2023 End: 11-12-2023 Patient encounter procedure Jenni Serrano MD Work Phone: Otolaryngology Comment on above: Oral lesion Start: 11-09-2023 End: 11-09-2023 ambulatory Zander Cline [employer] BUIL[employer] [facility] Comment on above: DDD (degenerative di sc disease), lumbar (Primary Dx); DDD (degenerative disc disease), thoracic Start: 11-08-2023 End: 11-08-2023 ambulatory SATISH KOO Not Available Start: 11-06-2023 End: 11-06-2023 ambulatory ZANDER CLINE Not Available Start: 11-02-2023 End: 11-02-2023 ambulatory ZANDER CLINE Not Available Start: 10-31-2023 End: 10-31-2023 ambulatory ZANDER CLINE Not Available Start: 10-29-2023 End: 10-29-2023 ambulatory VAISHALI HENDRICKS Not Available Start: 10-26-2023 End: 10-26-2023 ambulatory ZANDER CLINE Not Available Start: 10-24-2023 End: 10-24-2023 ambulatory MORENA FARR Not Available Start: 10-16-2023 End: 10-16-2023 ambulatory JOHN HIGGINS Not Available Start: 10-10-2023 Telephone encounter Elicia Cross APRN.CNP Work Phone: Otolaryngology Comment on above: Appointment Start: 10-09-2023 End: 10-09-2023 ambulatory REBECA HERRERA Not Available Start: 09-24-2023 End: 09-24-2023 ambulatory SATISH KOO Not Available Start: 09-06-2023 End: 09-06-2023 ambulatory WENDY CHINCHILLA Not Available Start: 08-27-2023 End: 08-27-2023 ambulatory Julien Ruff Other [facility] Other Start: 08-27-2023 Office outpatient vi sit 15 minutes Julien Ruff [facility] Start: 08-21-2023 End: 08-21-2023 ambulatory REBECA D SHARON Not Available Start: 08-10-2023 End: 08-10-2023 ambulatory ELICIA CROSS Facility:[facility] Start: 08-10-2023 End: 08-10-2023 Patient encounter procedure Ester Burrell, [facility] Work Phone: Audiology Comment on above: Other specified hear ing loss, unspecified ear (Primary Dx); Type 2 diabetes mellitus with stage 3a chronic kidney disease, without long-term current use of insulin (HCC) Bilateral high frequ ency sensorineural hearing loss (Primary Dx); Oral lesion Start: 06-14-2023 Orders Only Elicia Gunderson son [employer]ISTR[employer] NURSES' REGISTRY.MACHINE SHOP SPECIALIST Work Phone: [facility] Comment on above: Other specified hear ing loss, unspecified ear (Primary Dx) Start: 02-12-2023 End: 02-13-2023 ambulatory JULIEN RONALD Facility: Start: 12-26-2022 End: 12-26-2022 ambulatory Jignesh Sargent Other [facility] Other Start: 12-26-2022 Patient encounter procedure Jignesh Sargent [facility] Start: 10-12-2022 End: 10-12-2022 ambulatory Julien Toribiodir Other [facility] Other Start: 10-12-2022 Telephone encounter Julien Ronald [facility] Start: 08-30-2022 End: 08-30-2022 ambulatory MD Wendy Chinchilla Work Phone: [facility] Work Phone: Start: 08-30-2022 End: 08-30-2022 Patient encounter procedure MD Wendy Chinchilla Work Phone: [facility] Start: 2022 End: 08-30-2022 ambulatory JIGNESH SARGENT Facility: Start: 08-22-2022 End: 08-22-2022 ambulatory Jignesh Sargent Other [facility] Other Start: 08-22-2022 [facility] visit new patient Jignesh Sargent [facility] Start: 08-14-2022 End: 08-14-2022 ambulatory Julien Ronald Other [facility] Other Start: 08-14-2022 Office outpatient vi sit 25 minutes Julien Ronald [facility] Start: 08-08-2022 End: 08-09-2022 ambulatory JULIEN RONALD Facility: Start: 02-13-2022 End: 02-13-2022 ambulatory Julien Ronald Other [facility] Other Start: 02-13-2022 Office outpatient vi sit 15 minutes Julien Ronald [facility] Start: 11-23-2021 End: 11-23-2021 ambulatory Julien Ronald Other [facility] Other Start: 11-23-2021 Telephone encounter Julien Ronald [facility] Start: 08-10-2021 End: 08-10-2021 ambulatory Julien Ronald Other [facility] Other Start: 08-10-2021 Office outpatient vi sit 15 minutes Julien Ronald [facility] Procedures Date Procedure Procedure Detail Performing Clinician Start: 01-03-2024 Ultrasound elastogra phy of liver MD Wendy Chinchilla Work Phone: Start: 10-09-2023 Mammography Zander Duggan [employer] BU[employer]DER Start: 08-10-2023 HEARING TEST/AUDIOGRAM Ester Burrell, [facility] Work Phone: Start: 04-27-2023 History of operative procedure on knee History of knee surgery Zander Cline FIXTURE BUILDER Start: 08-30-2022 Ultrasound elastogra phy of liver MD Wendy Chinchilla Work Phone: Start: 08-05-2020 Colonoscopy Zander La wrence FIXTURE BUILDER Plan of Treatment Date Care Activity Detail Author Start: 08-05-2030 Screening for malign ant neoplasm of colon [facility] Start: 05-15-2029 Urine microalbumin profile DTaP,Tdap,Td Vaccine (6 - Td or Tdap) [facility] Start: 10-30-2025 Glaucoma screening Diabetes: R etinopathy Screening [facility] Start: 07-21-2025 End: 07-21-2025 Patient encounter procedure 07/21/2025 9:20 AM EDT Office Visit [facility] [address] [place] [address] Satish Koo, [employer]URSES' REGISTRY-MACHINE SHOP SPECIALIST [address] [place] [address] [facility] Start: 06-13-2025 Urine screening for protein Diabetes: Urine Protein Screening [facility] Start: 05-18-2025 End: 05-18-2025 Patient encounter procedure 05/18/2025 9:00 AM EDT Office Visit [facility] [address] [place] [id number] Jr. Melvin Pham C, DO [address] [place] [address] [facility] Start: 10-09-2024 Screening for malign ant neoplasm of breast [facility] Start: 09-16-2024 End: 09-16-2024 Patient encounter procedure 09/16/2024 9:00 AM EST Office Visit [facility] [address] [place] [id number] Wendy Chinchilla MD [address] [place], [place] [id number] [facility] Start: 09-12-2024 Hemoglobin A1c measurement Diabetes: Hemoglobin A1C [facility] Start: 08-21-2024 Medicare Annual Wellness (AWV) Medicare Annual Wellness (AWV) [facility] Start: 07-21-2024 End: 07-21-2024 Patient encounter procedure 07/21/2024 9:20 AM EDT Office Visit [facility] [address] [place] [id number] Satish Koo, [employer]URSES' REGISTRY-MACHINE SHOP SPECIALIST [address] [place] [address] [facility] Start: 06-08-2024 Influenza vaccination Influenz a Vaccine (Season Ended) [facility] Start: 05-16-2024 End: 05-16-2024 Patient encounter procedure 05/16/2024 9:30 AM EDT Office Visit [facility] [address] [place] [id number] Barb Richards PA [address] [place] [address] [facility] Start: 03-24-2024 Complete blood count Hemoglobin/Migel tocrit [facility] Start: 03-24-2024 Creatinine measurement Serum Creatin ine [facility] Start: 03-06-2024 Hemoglobin A1c measurement HbA1C [facility] Start: 01-03-2024 [facility] Start: 12-07-2023 End: 12-07-2023 Patient encounter procedure 12/07/2023 9:30 AM EST Office Visit [facility] [address] [place] [id number] Wendy Chinchilla MD [address] [place] [address] [facility] Start: 12-06-2023 Hemoglobin A1c measurement Diabetes: Hemoglobin A1C [facility] Start: 12-06-2023 Hemoglobin A1c/Hemoglobin.total in Blood HbA1C [facility] Start: 11-27-2023 End: 11-27-2023 Patient encounter procedure 11/27/2023 9:30 AM EST Office Visit [facility] [address] [place] [address] John Higgins DO [address] [place] [address] [facility] Start: 11-26-2023 End: 11-26-2023 ambulatory 11/26/2023 10:30 AM EST Treatment [facility] [address] [facility] [address] [place] [address] Carlin Morena Billy, PT [address] [facility] [address] [place] [address] [facility] Start: 11-21-2023 End: 11-21-2023 ambulatory [facility] Start: 11-19-2023 End: 11-19-2023 ambulatory [facility] Comment on above: Arrived Start: 11-15-2023 End: 11-15-2023 ambulatory 11/15/2023 12:30 PM EST Treatment [facility] [address] [facility] [address] [place] [address] Zander Cline PTA [facility] Start: 11-13-2023 End: 11-13-2023 ambulatory 11/13/2023 10:30 AM EST Treatment [facility] [address] [facility] [address] [place] [address] Zander Cline FIXTURE BUILDER [facility] Start: 10-08-2023 Advance Directive Discussion Advance Directive Discussion [facility] Start: 10-08-2023 Behavioral Health Screening Behavioral Health Screening [facility] Start: 10-08-2023 Depression Assessment Depression Ass essment [facility] Start: 06-08-2023 Covid-19 Vaccine ( season) Covid-19 Vaccine ( season) [facility] Start: 06-08-2023 Influenza vaccination C [facility] Start: 10-08-2022 ADVANCE DIRECTIVE DISCUSSION ADVANCE DIRECTIVE DISCUSSION [facility] Start: 10-08-2022 DEPRESSION ASSESSMENT DEPRESSION ASS ESSMENT [facility] Start: 08-30-2022 [facility] Start: 2017 BONE DENSITY BONE DENSITY [facility] Start: 2017 Bone Density Screening Bone Density Screening [facility] Start: 2017 PNEUMOCOCCAL: 65+ (1 - PCV) PNEUMOCOCCAL: 65+ (1 - PCV) [facility] Start: 2017 Screening for osteoporosis Bone Density Screening [facility] Start: 2012 Hepatitis B Vaccine (1 of 3 - Risk 3-dose series) Hepatitis B Vaccine (1 of 3 - Risk 3-dose series) [facility] Start: 2012 RSV Vaccine (1 - 1-d ose 60+ series) RSV Vaccine (1 - 1-dose 60+ series) [facility] Start: 2002 SHINGRIX VACCINE (1 of 2) SHINGRIX VACCINE (1 of 2) [facility] Start: 1997 COLOGUARD (FIT-DNA) COLOGUARD (FIT-D NA) [facility] Start: 1997 Colonoscopy COLONOSCOPY [facility] Start: 1997 COLORECTAL CANCER SCREENING COLORECTAL CANCER SCREENING [facility] Start: [address] COLONOGRAPHY [facility] Start: 1997 DIABETES SCREEN DIABETES SCREEN [facility] Start: 1997 FECAL OCCULT BLOOD FECAL OCCULT BLOO D [facility] Start: 1997 LIPID SCREEN LIPID SCREEN [facility] Start: 1997 Screening for malign ant neoplasm of colon [facility] Start: 1997 SIGMOIDOSCOPY SIGMOIDOSCOPY [facility] Start: 1992 Mammography [facility] Start: 1971 Urine microalbumin profile DTAP,TDAP,TD (1 - Tdap) [facility] Start: 1970 Annual PCP Team Senior Salesforce Developer vicky Disease Visit Annual PCP Team Chronic Disease Visit [facility] Start: 1970 BP Controlled (<130/80) BP Controlle d (<130/80) [facility] Start: 1970 Hemoglobin/Hematocrit Hemoglobin/Hem atocrit [facility] Start: 1970 Hepatitis B surface antibody level LDL Cholesterol [facility] Start: 1970 HEPATITIS C SCREENING HEPATITIS C [facility] Start: 1970 Hepatitis C screening Hepatitis C [facility] Start: 1970 Serum Creatinine Serum Creatinine [facility] Start: 1962 3 comp foot exam completed Diabetic Foot Exam [facility] Start: 1962 Diabetic foot examination Diabetic Foot Exam [facility] Start: 1962 Glaucoma screening Dilated Retinal E xam [facility] Start: 1962 Hepatitis B screening Urine Albumin:Creatinine Ratio [facility] Start: 1962 Hepatitis C antibody , confirmatory test Dilated Retinal Exam [facility] Start: 02-26-1953 COVID-19 VACCINE (#1) COVID-19 VACCI NE (#1) [facility] Start: 1952 Screening for malign ant neoplasm of colon [facility] End: 06-14-2024 HEARING TEST/AUDIOGRAM HEARING TEST/AUDIOGRAM Audiology Routine Other specified hearing loss, unspecified ear 1 Occurrences starting 06/14/2023 until 06/14/2024 [facility] Work Phone: Comment on above: 1 Occurrences starti ng 06/14/2023 until 06/14/2024 [facility] Immunizations Immunization Date Immunization Notes Care Provider Kash enriquez 07-03-2024 SARS-COV-2 (COVID-19 ) vaccine, mRNA, spike protein, LNP, PF, marciano-sucrose, 30 mcg/0.3 mL Satish Koo REGISTRAR NURSES' REGISTRY-MACHINE SHOP SPECIALIST Work Phone: [facility] 06-13-2024 Influenza, High-dose Seasonal, Quadrivalent, Preservative Free Satish Koo REGISTRAR NURSES' REGISTRY-MACHINE SHOP SPECIALIST Work Phone: [facility] 09-06-2023 Influenza, High-dose Seasonal, Quadrivalent, Preservative Free Zander Cline [facility] 06-30-2022 influenza, high dose seasonal, preservative-free Zander Cline [facility] 06-30-2022 Influenza, High-dose Seasonal, Quadrivalent, Preservative Free Zander Cline [facility] 06-30-2022 influenza virus vaccine, unspecified formulation Jenni Serrano MD Work Phone: [facility] 11-17-2021 pneumococcal polysaccharide vaccine, 23 valent Zander Cline [facility] 10-04-2021 Influenza, Seasonal, Quadrivalent, Adjuvanted Zander Cline [facility] 10-04-2021 influenza virus vaccine, unspecified formulation Ester Burrell, [facility] Work Phone: [facility] 08-09-2020 zoster vaccine recombinant Zander Cline [facility] 06-07-2020 influenza, injectabl e, quadrivalent, preservative free Zander Cline [facility] 05-21-2020 influenza, injectabl e, quadrivalent, preservative free Zander Cline [facility] 05-21-2020 zoster vaccine recombinant Zander Cline [facility] 06-25-2019 influenza, high dose seasonal, preservative-free Zander Cline [facility] 05-15-2019 tetanus toxoid, redu kisha diphtheria toxoid, and acellular pertussis vaccine, adsorbed Zander [facility] 03-31-2019 tetanus and diphther ia toxoids, adsorbed, preservative free, for adult use (5 Lf of tetanus toxoid and 2 Lf of diphtheria toxoid) Zander Cline [facility] 03-31-2019 tetanus toxoid, redu kisha diphtheria toxoid, and acellular pertussis vaccine, adsorbed Julien Ronald Other [facility] Other 07-04-2018 Seasonal trivalent influenza vaccine, adjuvanted, preservative free Zander Cline [facility] 02-07-2018 pneumococcal conjuga te vaccine, 13 valent Zander Cline [facility] 06-18-2017 influenza, injectabl e, quadrivalent, preservative free Zander Cline [facility] 05-21-2017 influenza, injectabl e, quadrivalent, preservative free Zander Cline [facility] 08-04-2016 influenza, injectabl e, quadrivalent, preservative free Zander Cline [facility] 06-19-2016 pneumococcal polysaccharide vaccine, 23 valent Zander Cline [facility] 08-31-2015 influenza, seasonal, injectable, preservative free Zander Cline [facility] 07-20-2015 influenza, seasonal, injectable Julien Ronald Other [facility] Other 03-12-2015 zoster vaccine, live Zander Cline [facility] 07-13-2014 influenza, seasonal, injectable, preservative free Zander Cline [facility] 08-18-2013 influenza virus vaccine, whole virus Zander Cline [facility] 08-08-2013 seasonal influenza, intradermal, preservative free Zander Cline [facility] 07-25-2012 influenza, seasonal, injectable, preservative free Zander Cline [facility] 07-12-2009 diphtheria, tetanus toxoids and pertussis vaccine Zander Cline [facility] 07-12-2009 tetanus toxoid, redu kisha diphtheria toxoid, and acellular pertussis vaccine, adsorbed Zander Cline [facility] Payers Date Payer Category Payer Self-pay [id number] 2023 Unknown [employer] D [employer] [id number] 2023-Present [address] [place] [address] [id number] [id number] 2022 Medicare DEVOTED MEDICARE [employer] [facility] [facility] PPO [id number] 2022-Present [phone] [address] [place] [address] PPO [id number] [id number] 2022 Medicare (Managed Care) [employer] [id number] [id number] 2021 Unknown [id number] 2.16.840.1.263846.19 1959 Medicare [id number] 2.16.840.1.193562.19 1959 Private Health Insurance [id number] 2.16.840.1.424648.19 1952 Unknown [id number] 2.16.840.1.052915.3.579. 2.593 1952 Unknown [id number] 2.16.840.1.143315.3.579. 2.593 1952 Unknown [id number] 2.16.840.1.213763.3.579. 2.593 1952 Unknown [id number] 2.16.840.1.220003.3.579. 2.1286 1952 Unknown [id number] 2.16.840.1.078630.3.579. 2.1259 1952 Unknown [id number] 2.16.840.1.752694.3.579. 2.1259 1952 Unknown [id number] 2.16.840.1.189236.3.579. 2.125 1952 Unknown [id number] 2.16.840.1.001909.3.579. 2.1259 1952 Unknown [id number] 2.16.840.1.618956.3.579. 2.1259 1952 Unknown [id number] 2.16.840.1.849059.3.579. 2.1259 1952 Unknown [id number] 2.16.840.1.966726.3.579. 2.1259 1952 Unknown [id number] 2.16.840.1.448842.3.579. 2.1259 1952 Unknown [id number] 2.16.840.1.700345.3.579. 2.1259 1952 Unknown [id number] 2.16.840.1.629537.3.579. 2.1259 1952 Unknown [id number] 2.16.840.1.269405.3.579. 2.1259 1952 Unknown [id number] 2.16.840.1.784274.3.579. 2.1259 1952 Unknown [id number] 2.16.840.1.718451.3.579. 2.125 1952 Unknown [id number] 2.16.840.1.584147.3.579. 2.125 1952 Unknown [id number] 2.16.840.1.512012.3.579. 2.125 1952 Unknown [id number] 2.16.840.1.765249.3.579. 2.1258 1952 Unknown [id number] 2.16.840.1.315938.3.579. 2.1258 1952 Unknown [id number] 2.16.840.1.022370.3.579. 2.1258 1952 Unknown [id number] 2.16.840.1.780178.3.579. 2.1258 1952 Unknown [id number] 2.16.840.1.181192.3.579. 2.1258 1952 Unknown [id number] 2.16.840.1.722704.3.579. 2.1258 1952 Unknown [id number] 2.16.840.1.069689.3.579. 2.1258 1952 Unknown [id number] 2.16.840.1.173323.3.579. 2.125 1952 Unknown [id number] 2.16.840.1.892947.3.579. 2.125 1952 Unknown [id number] 2.16.840.1.764046.3.579. 2.125 1952 Unknown [id number] 2.16.840.1.092442.3.579. 2.125 1952 Unknown [id number] 2.16.840.1.841719.3.579. 2.1252 Unknown [id number] 2.16.840.1.011120.3.579. 2.9 1952 Unknown [id number] 2.16.840.1.382411.3.579. 2.9 1952 Unknown [id number] 2.16.840.1.406327.3.579. 2.1258 1952 Unknown [id number] 2.16.840.1.223637.3.579. 2.1258 1952 Unknown [id number] 2.16.840.1.506680.3.579. 2.1258 1952 Unknown [id number] 2.16.840.1.680965.3.579. 2.9 1952 Unknown [id number] 2.16.840.1.503573.3.579. 2.1259 Private Health [facility] [id number] Unknown [id number] 2.16.840.1.779898.3.579. 2.531 Unknown [id number] 2.16.840.1.310935.3.579. 2.531 Unknown [id number] 2.16.840.1.351170.3.579. 2.531 Social History Date Type Detail Facility Unknown if ever smoked [facility] Start: 08-21-2023 End: 12-01-2023 Sex Assigned At [facility] Start: 1950 Sex [facility]igned At Female [facility] unknown [facility] Start: 1950 Sex Assigned At Not on file [facility] Start: 05-29-2023 Gender identity Identifies as female gender (finding) [facility] Start: 06-15-2023 Sexual orientation Heterosexual (finding) [facility] Start: 04-27-2023 End: 12-07-2023 Tobacco smoking status NHIS Never smoked tobacco [facility] Start: 04-27-2023 End: 12-07-2023 Tobacco use and exposure Smokeless tobacco non-user [facility] Start: 11-08-2023 End: 07-21-2024 Alcohol intake Ex-drinker (finding) [facility] Start: 08-21-2023 End: 12-01-2023 History of Social function [facility] How often to you hav e a drink containing alcohol? Never [facility] How many standard dr inks containing alcohol do you have on a typical day? Patient does not drink [facility] Start: 05-16-2023 Alcohol Comment Caffeine intake: 1-2 cups per day coffee [facility] Do you belong to any clubs or organizations such as gnosticist groups, unions, [employer] or athletic groups, or school groups? Yes [facility] Are you now , , , , never or living with a partner? [facility] Do you feel stress - tense, restless, nervous, or anxious, or unable to sleep at night because your mind is troubled all the time - these days [OSQ] Not at all [facility] (I/We) worried wheth er (my/our) food would run out before (I/we) got money to buy more. Never true [facility] In the past 12 month s, was there a time when you were not able to pay the mortgage or rent on time? No [facility] Start: 12-07-2023 Tobacco Comment never used it [facility] Start: 06-13-2024 Alcohol Comment occasional glass of wine - 1 maybe in 6 mo. [facility] Medical Equipment Procedure Code Equipment Code Equipment Origin al Text Equipment Identifier Dates Lancets (OneTouc h Delica Plus [id number]) misc [id number] Start: 04-07-2023 OneTouch Verio t est strip [id number] FINGERSTICK DAILY. [id number] Start: 02-04-2024 End: 07-21-2024 USE AND DISCARD 1 LANCET FINGERSTICK DAILY [id number] Start: 12-21-2023 FINGERSTICK DAILY. [id number] Start: 07-21-2024 Goals Date Patient Goal Desired Activity /State Clinical Notes 08-10-2021 to 08-06-2024 Telephone Encounter - Savi Calhoun - 08/06/2024 9:58 AM EDTTelephone Encounter - Savi Calhoun - 08/06/2024 9:58 AM EDTTelephone Encounter - Wendy Chinchilla MD - 08/05/2024 12:30 PM EDT Note Date & Type Note Facility 08-06-2024 Telephone encounter Note Patient has an appt scheduled with Dr. Arie Walton on . they need all her testing, ultrasound, echo, labs and why she is having the testing with Dr. Sargent. Thank you. [facility] 08-06-2024 Miscellaneous Notes Patient has an appt scheduled with Dr. Arie Walton on . they need all her testing, ultrasound, echo, labs and why she is having the testing with Dr. Sargent. Thank you. documented in this encounter [facility] 08-05-2024 Telephone encounter Note Refills sent. [facility] 08-05-2024 Miscellaneous Notes Refills sent. documented in this encounter [facility] 07-28-2024 Telephone encounter Note Refills sent. [facility] 07-28-2024 Miscellaneous Notes Refills sent. documented in this encounter [facility] 07-21-2024 History of Presen t illness Narrative Skin Check Location: Patient requests a full body skin examination Dermatologic history: history of Actinic Keratosis Last visit: 11/09/2023 Established patient All pertinent medical history, medications, and allergies were reviewed. General Exam: alert, oriented to person, place, and time, normal affect, well appearing Unaccompanied Scalp, Examined , exam limited by hair Right leg Examined Head, Face Examined Left leg Examined Neck Examined Right foot Examined Chest Examined Left foot Examined Back Examined Buttocks Examined Abdomen Examined Digits,nails: Examined Right arm Examined Denies dark streaks under finger nails, Denies dark streaks on toenails Left arm Examined Lymphatics: Not examined Hands Examined 1. Seborrheic keratosis Stuck on verrucous, variably pigmented papules and plaques. Patient was counseled regarding these benign growths. Removal is normally not necessary, but they may be removed if they are symptomatic or for cosmetic reasons. 2. Melanocytic nevus of trunk Trunk Scattered benign appearing, regular brown to light brown melanocytic papules and macules with similar morphology Counseled regarding these benign growths. Rarely, a nevus can develop into malignant melanoma, so any changing nevi should be promptly re-evaluated. 3. Capillary angioma (2) Scalp, Trunk Scattered randall-red papule(s). The patient was informed that angiomas are benign growths on the the skin. No treatment is necessary. Next Visit: 1 year, skin check documented in this encounter [facility] 11-12-2023 Note HNO ID: [id number] Author: JENNI SERRANO MD Service: ? Author Type: Physician Type: Progress Notes Filed: 11/12/2023 10:31 Note Text: History: Vivian Duran, a 73 year old female, presents for [...] kidney disease) stage 3, GFR 30-59 ml/min ([facility]) DM type 2 (diabetes mellitus, type 2) ([facility]) HTN (hypertension) Hypothyroidism Mixed hyperlipidemia [...] of lesions. TMs clear and mobile. Neurologic: guest experience specialist II-XII grossly intact. Assessment/Plan: Reassured no apparent oral lesion. 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 F/up prn. Medical Decision Making: Problems: Low: Acute, uncomplicated illness or injury Risk: Minimal: Minimal risk from testing/treatment Medical Decision Making Level: 2 - Straightforward [facility] 11-12-2023 History of Presen t illness Narrative History: Vivian Duran, a 73 year old female, presents for [...] kidney disease) stage 3, GFR 30-59 ml/min ([facility]) DM type 2 (diabetes mellitus, type 2) ([facility]) HTN (hypertension) Hypothyroidism Mixed hyperlipidemia [...] of lesions. TMs clear and mobile. Neurologic: guest experience specialist II-XII grossly intact. Assessment/Plan: Reassured no apparent oral lesion. 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 F/up prn. Medical Decision Making: Problems: Low: Acute, uncomplicated illness or injury Risk: Minimal: Minimal risk from testing/treatment Medical Decision Making Level: 2 - Straightforward documented in this encounter [facility] 10-11-2023 Telephone encounter Note Patient returned call to [facility] regarding the message Leann left. Patient states to call again at [phone]. Patient will accept any open slot. [facility] 10-11-2023 Miscellaneous Notes Patient returned call to [facility] regarding the message Leann left. Patient states to call again at [phone]. Patient will accept any open slot. Please call patient. Please let her know that I would highly recommend that she see one of our ENT tobacco buyer physicians. They would be able to discuss with her a biopsy either in the office or the operating room if indicated. Please assist with an appointment for Dr. Rodriguez, Dr. Pope, Dr. Serrano, Dr. Duncan, or Dr. Chowdhury at the patient's earliest convenience. Please let her know that the closest location that we would be able to provide this service would be [place]. Otherwise, we have providers in [facility], or several locations on the [facility] or in [place] that would be able to help her with this biopsy. Not appropriate for her to see PA or METAL TECHNICIAN must be scheduled with MD only. Thank you, Elicia Cross CNP [facility] is calling Elicia Cross APRN.CNP today to as pt went to dentist and they advised the spot in he mouth needs biopsied. Pt has been calling oral surgeons all day with no luck. Dental office advised to call provider since she had seen her in the past for this reason. Please advise if Elicia can do procedure or any other provider that could. Patient has been identified by name and birthdate. Duration of symptoms: N/A Person calling: self Call patient at: at home [phone] (home) [phone] (cell) Was an appointment scheduled: No Closing statement: Results or non-symptom based questions: Thank you for calling [facility], your call will be returned within the next business day. Pamela Lange documented in this encounter [facility] 10-11-2023 Telephone encounter Note Please call patient. Please let her know that I would highly recommend that she see one of our ENT tobacco buyer physicians. They would be able to discuss with her a biopsy either in the office or the operating room if indicated. Please assist with an appointment for Dr. Rodriguez, Dr. Pope, Dr. Serrano, Dr. Duncan, or Dr. Chowdhury at the patient's earliest convenience. Please let her know that the closest location that we would be able to provide this service would be [place]. Otherwise, we have providers in [facility], or several locations on the [facility] or in [place] that would be able to help her with this biopsy. Not appropriate for her to see PA or METAL TECHNICIAN must be scheduled with MD only. Thank you, Elicia Cross CNP [facility] 10-10-2023 Telephone encounter Note [facility] is calling Elicia Cross APRN.MACHINE SHOP SPECIALIST today to as pt went to dentist and they advised the spot in he mouth needs biopsied. Pt has been calling oral surgeons all day with no luck. Dental office advised to call provider since she had seen her in the past for this reason. Please advise if Elicia can do procedure or any other provider that could. Patient has been identified by name and birthdate. Duration of symptoms: N/A Person calling: self Call patient at: at home [phone] (home) [phone] (cell) Was an appointment scheduled: No Closing statement: Results or non-symptom based questions: Thank you for calling [facility], your call will be returned within the next business day. Pamela Lange [facility] 08-27-2023 Evaluation note Encounter Date Diagnosis [...] bladder prolapse and will follow with her REWORKER. Aug, Hyperuricemia (ICD-10 - E79.0) She has hyperuricemia due to the CKD. She denies any symptoms we will monitor without medications. [facility] 11-03-2023 NoteHNO ID: [id number] Author: Ester Blanca AuD, [facility] Service: ? Author Type: Catering Truck Operator Type: Procedures Filed: 08/10/2023 10:00 AM Note Text: Head and Neck Disputanta AUDIOLOGIC EVALUATION REPORT Name: Vivian Duran CC#: [id number] Date of Service: 08/10/2023 Date of : 1950 Age: [age] year old Referred by: Elicia Cross [address] [place] [address] [place] [id number] Referred for: Evaluation of the cause of disorder of hearing, tinnitus, or balance. Referral documented: In an order in [facility] [facility] Patient's major complaints: Hearing Loss/Hearing Problem. Vivian reported she has some trouble hearing/understanding speech and some trouble hearing the dialogue when watching TV unless the volume is louder. Her notices this problem. Patient denies tinnitus. Vivian Duran was seen for an initial audiologic evaluation. See [facility] Audiogram for additional reported history and [...] evaluation of middle ear function. CPT code: 92964 RIGHT EAR: Normal ME pressure and TM compliance (mobility). LEFT EAR: Normal ME pressure and TM compliance (mobility). PURE TONE AUDIOMETRY AND SPEECH TESTING Description of procedure: This test is an objective evaluation hearing sensitivity via air and bone conduction and speech recognition testing. CPT code:93182 RIGHT EAR: Hearing Sensitivity: Hearing sensitivity within [...] RECOMMENDATIONS 1. ENT consult today with Elicia Cross APRN.CNP. 2. Recheck as needed. 3. Hearing conservation. Tania Vasquez, PUNEET/A Clinical Catering Truck Operator VILLANUEVA Abbrev- iation Definition Degree of hearing sensitivity dB range WNL within normal limits WNL 0 - 20 SNHL sensorineural hearing loss Mild 20-40 CHL conductive hearing loss Moderate 40-55 MHL mixed hearing loss Moderately-Severe 55-70 WRS word recognition score Severe 70-90 ME middle ear Profound 90 + [facility]23 NoteHNO ID: [id number] Author: Elicia Cross APRN.MACHINE SHOP SPECIALIST Service: ? Author Type: Nurse Practitioner Type: Progress Notes Filed: 08/10/2023 1:06 PM Note Text: Ms. Duran is a 72 year old female who [...] evaluation of middle ear function. CPT code: 23229 RIGHT EAR: Normal ME pressure and TM compliance (mobility). LEFT EAR: Normal ME pressure and TM compliance (mobility). PURE TONE AUDIOMETRY AND SPEECH TESTING Description of procedure: This test is an objective evaluation hearing sensitivity via air and bone conduction and speech recognition testing. CPT code:45690 RIGHT EAR: Hearing Sensitivity: Hearing sensitivity within [...] kidney disease) stage 3, GFR 30-59 ml/min ([facility]) DM type 2 (diabetes mellitus, type 2) ([facility]) HTN (hypertension) Hypothyroidism Mixed hyperlipidemia [...] BIOTIN, ORAL Take by mouth as directed. [id number]-algal oil (METANX, ALGAL OIL,) 3 mg-35 mg-2 [...] limited. Neck: No masses (more content not included)...[facility] 08-10-2023 Procedure note* Ester Blanca AuD, [facility] - 08/10/2023 8:17 AM EDT [facility] AUDIOLOGIC EVALUATION REPORT Name: Vivian Duran [facility]#: [id number] Date of Service: 08/10/2023 Date of : 1950 Age: [age] year old Referred by: Elicia Cross [address] [id number] Referred for: Evaluation of the cause of disorder of hearing, tinnitus, or balance. Referral documented: In an order in [facility] Patient's major complaints: Hearing Loss/Hearing Problem. Vivian reported she has some trouble hearing/understanding speech and some trouble hearing the dialogue when watching TV unless the volume is louder. Her notices this problem. Patient denies tinnitus. Vivian Duran was seen for an initial audiologic evaluation. See [facility] for additional reported history and symptoms. [...] evaluation of middle ear function. CPT code: 42592 RIGHT EAR: Normal ME pressure and TM compliance (mobility). LEFT EAR: Normal ME pressure and TM compliance (mobility). PURE TONE AUDIOMETRY AND SPEECH TESTING Description of procedure: This test is an objective evaluation hearing sensitivity via air and boneconduction and speech recognition testing. CPT code:03166 RIGHT EAR: Hearing Sensitivity: Hearing sensitivity within [...] RECOMMENDATIONS 1. ENT consult today with Elicia Cross APRN.CNP. 2. Recheck as needed. 3. Hearing conservation. Tania Vasquez, PUNEET/Zohra Clinical Catering Truck Operator VILLANUEVA Abbrev- iation Definition Degree of hearing sensitivity dB range WNL within normal limits WNL 0 - 20 SNHL sensorineural hearing loss Mild 20-40 CHL conductive hearing loss Moderate 40-55 MHL mixed hearing loss Moderately-Severe 55-70 WRS word recognition score Severe 70-90 ME middle ear Profound 90 + TM tympanic membrane [facility] History of Present illness Narrative* Elicia Cross APRN.CNP - 08/10/2023 7:58 AM EDT Ms. Duran is a 72 year old female who [...] evaluation of middle ear function. CPT code: 86520 RIGHT EAR: Normal ME pressure and TM compliance (mobility). LEFT EAR: Normal ME pressure and TM compliance (mobility). PURE TONE AUDIOMETRY AND SPEECH TESTING Description of procedure: This test is an objective evaluation hearing sensitivity via air and boneconduction and speech recognition testing. CPT code:94083 RIGHT EAR: Hearing Sensitivity: Hearing sensitivity within [...] kidney disease) stage 3, GFR 30-59 ml/min ([facility]) DM type 2 (diabetes mellitus, type 2) ([facility]) HTN (hypertension) Hypothyroidism Mixed hyperlipidemia [...] BIOTIN, ORAL Take by mouth as directed. mlrozammq-[id number]-algal oil (METANX, ALGAL OIL,) 3 mg-35 mg-2 [...] this area to rule out leukoplakia. Elicia Cross APRN.MACHINE SHOP SPECIALIST documented in this encounter[facility] Evaluation note* Diagnosis Other specified hearing loss, unspecified ear- Primary Type 2 diabetes mellitus with stage 3a chronic kidney disease, without long-term current use of insulin (HCC) documented in [facility] encounter [facility]03-21-[facility] Evaluation note* Encounter Date Diagnosis Assessment Notes Treatment Notes Treatment Clinical Notes Dec, Fatty liver (ICD-10 - K76.0) Dec, CABELLO (nonalcoholic steatohepatitis) (ICD-10 - K75.81) Repeat fibroscan 1 yr F/u with Mt in 1 yr [facility] 02-22-2023 NoteHISTORY: Bone density screening COMPARISON: [...] and signed by Estrada Cummins on 11/29/2022 1031[facility] Evaluation note* Encounter Date Diagnosis Assessment Notes Treatment Notes Treatment Clinical Notes Oct, Diabetes mellitus with chronic kidney disease (ICD-10 - E11.22) [facility] Other 11-15-2022 Evaluation note* Encounter Date Diagnosis Assessment Notes Treatment Notes Treatment Clinical Notes Aug, Elevated liver enzymes (ICD-10 - R74.8) [facility] Other 11-07-2022 Evaluation note* Encounter Date Diagnosis [...] bladder prolapse and will follow with her REWORKER. Aug, Hyperuricemia (ICD-10 - E79.0) She has hyperuricemia due to the CKD. She denies any symptoms we will monitor without medications. [facility] Other 05-09-2022 Evaluation note* Encounter Date Diagnosis [...] bladder prolapse and will follow with her REWORKER. February, Hyperglycemia (ICD-10 - R73.9) She has a fasting blood sugar above 126 mg/dL possibly she has diabetes I have advised her to monitor her blood sugars and follow with PCP. She can be started on Metformin or SGLT2 inhibitors like farxiga if needed [facility] Other 02-16-2022 Evaluation note* Encounter Date Diagnosis Assessment Notes Treatment Notes Treatment Clinical Notes Nov, Hypertensive chronic kidney disease with stage 1 through stage 4 chronic kidney disease, or unspecified chronic kidney disease (ICD-10 - I12.9) Nov, Chronic kidney disea se, stage III (moderate) (ICD-10 - N18.30) Nov, Secondary hyperparathyroidism (ICD-10 - N25.81) [facility] Other 11-03-2021 Evaluation note* Encounter Date Diagnosis [...] bladder prolapse and will follow with her REWORKER. Aug, Hyperglycemia (ICD-10 - R73.9) She has a fasting blood sugar above 110 mg/dL possibly she has prediabetes I have advised her to monitor her blood sugars and follow with PCP. [facility] Other Evaluation noteNo assessment information available [facility] Work Phone: Evaluation note* Diagnosis Other specified hearing loss, unspecified ear- Primary [facility] Diagnosis Bilateral high frequency sensorineural hearing loss- Primary Sensorineural hearing loss, bilateral Oral lesion Other and unspecified diseases of the oral soft tissues [facility] Diagnosis DDD (degenerative disc disease), lumbar- Primary Degeneration of lumbar or lumbosacral intervertebral disc DDD (degenerative disc disease), thoracic Degeneration of thoracic or thoracolumbar intervertebral disc documented [facility] encounter [facility]* Diagnosis DDD (degenerative disc disease), lumbar- Primary Degeneration of lumbar or lumbosacral intervertebral disc DDD (degenerative disc disease), thoracic Degeneration of thoracic or thoracolumbar intervertebral disc documented in this encounter [facility]* Diagnosis DDD (degenerative disc disease), lumbar- Primary Degeneration of lumbar or lumbosacral intervertebral disc DDD (degenerative disc disease), thoracic Degeneration of thoracic or thoracolumbar intervertebral disc documented in this encounter [facility]* Diagnosis Type 2 diabetes mellitus without complication, without long-term current use of insulin ([facility]) documented in this encounter [facility]* Diagnosis Oral lesion- Primary Other and unspecified diseases of the oral soft tissues [facility] Diagnosis Oral lesion Other and unspecified diseases of the oral soft tissues [facility] Diagnosis Type 2 diabetes mellitus without complication, without long-term current use of insulin ([facility])- Primary Seasonal allergic rhinitis due to pollen Darcy albicans infection Obstructive sleep apnea syndrome Obstructive sleep apnea (adult) (pediatric) Essential hypertension (CMS/HCC) Unspecified essential hypertension Stage 3a chronic kidney disease (HCC) ([facility]/HCC) Acquired hypothyroidism ([facility]/HCC) Unspecified hypothyroidism Encounter for immunization- Primary Type 2 diabetes mellitus without complication, without long-term current use of insulin (CMS/[facility]) Obstructive sleep apnea syndrome Obstructive sleep apnea (adult) (pediatric) Essential hypertension (CMS/HCC) Unspecified essential hypertension Type 2 diabetes mellitus with stage 2 chronic kidney disease, without long-term current use of insulin (CMS/HCC) Mixed hyperlipidemia (CMS/HCC) Mixed hyperlipidemia Vaginal irritation Pruritus of genital organs Wellness examination- Primary Type 2 diabetes mellitus with diabetic polyneuropathy, without long-term current use of insulin ([facility]) Obstructive sleep apnea syndrome Obstructive sleep apnea (adult) (pediatric) Essential hypertension (CMS/HCC) Unspecified essential hypertension Stage 3a chronic kidney disease (HCC) ([facility]) Urgency incontinence Urge incontinence Acquired hypothyroidism ([facility]) Unspecified hypothyroidism Type 2 diabetes mellitus with stage 3a chronic kidney disease, without long-term current use of insulin (HCC) ([facility]) Mixed hyperlipidemia ([facility]) Mixed hyperlipidemia Type 2 diabetes mellitus with diabetic polyneuropathy, without long-term current use of insulin ([facility])- Primary Urinary frequency Obstructive sleep apnea syndrome Obstructive sleep apnea (adult) (pediatric) Essential hypertension ([facility]/HCC) Unspecified essential hypertension CABELLO (nonalcoholic steatohepatitis) Other chronic nonalcoholic liver disease Hypertensive chronic kidney disease with stage 1 through stage 4 chronic kidney disease, or unspecified chronic kidney disease (CMS/HCC) Stage 3a chronic kidney disease (HCC) ([facility]/HCC) Acquired hypothyroidism ([facility]) Unspecified hypothyroidism Mixed hyperlipidemia ([facility]) Mixed hyperlipidemia Anxiety Anxiety state, unspecified Type 2 diabetes mellitus with stage 2 chronic kidney disease, without long-term current use of insulin ([facility]) documented in this encounter [facility]* Diagnosis Type 2 diabetes mellitus without complication, without long-term current use of insulin ([facility])- Primary Seasonal allergic rhinitis due to pollen Darcy albicans infection Obstructive sleep apnea syndrome Obstructive sleep apnea (adult) (pediatric) Essential hypertension (CMS/HCC) Unspecified essential hypertension Stage 3a chronic kidney disease (HCC) (CMS/HCC) Acquired hypothyroidism (CMS/HCC) Unspecified hypothyroidism Encounter for immunization- Primary Type 2 diabetes mellitus without complication, without long-term current use of insulin (CMS/HCC) Obstructive sleep apnea syndrome Obstructive sleep apnea (adult) (pediatric) Essential hypertension (CMS/HCC) Unspecified essential hypertension Type 2 diabetes mellitus with stage 2 chronic kidney disease, without long-term current use of insulin (CMS/HCC) Mixed hyperlipidemia (CMS/HCC) Mixed hyperlipidemia Vaginal irritation Pruritus of genital organs Wellness examination- Primary Type 2 diabetes mellitus with diabetic polyneuropathy, without long-term current use of insulin (CMS/HCC) Obstructive sleep apnea syndrome Obstructive sleep apnea (adult) (pediatric) Essential hypertension (CMS/HCC) Unspecified essential hypertension Stage 3a chronic kidney disease (HCC) (CMS/HCC) Urgency incontinence Urge incontinence Acquired hypothyroidism (CMS/HCC) Unspecified hypothyroidism Type 2 diabetes mellitus with stage 3a chronic kidney disease, without long-term current use of insulin (HCC) (CMS/HCC) Mixed hyperlipidemia (CMS/HCC) Mixed hyperlipidemia Type 2 diabetes mellitus with diabetic polyneuropathy, without long-term current use of insulin ([facility]/HCC)- Primary Urinary frequency Obstructive sleep apnea syndrome Obstructive sleep apnea (adult) (pediatric) Essential hypertension (CMS/HCC) Unspecified essential hypertension CABELLO (nonalcoholic steatohepatitis) Other chronic nonalcoholic liver disease Hypertensive chronic kidney disease with stage 1 through stage 4 chronic kidney disease, or unspecified chronic kidney disease (CMS/HCC) Stage 3a chronic kidney disease (HCC) (CMS/HCC) Acquired hypothyroidism (CMS/HCC) Unspecified hypothyroidism Mixed hyperlipidemia ([facility]/HCC) Mixed hyperlipidemia Anxiety Anxiety state, unspecified Seborrheic keratosis- Primary Melanocytic nevus of trunk Benign neoplasm of skin of trunk, except scrotum Capillary angioma Nevus, non-neoplastic documented in this encounter [facility]* Diagnosis Type 2 diabetes mellitus without complication, without long-term current use of insulin ([facility])- Primary Seasonal allergic rhinitis due to pollen Darcy albicans infection Obstructive sleep apnea syndrome Obstructive sleep apnea (adult) (pediatric) Essential hypertension (CMS/HCC) Unspecified essential hypertension Stage 3a chronic kidney disease (HCC) (CMS/HCC) Acquired hypothyroidism (CMS/HCC) Unspecified hypothyroidism Encounter for immunization- Primary Type 2 diabetes mellitus without complication, without long-term current use of insulin (CMS/HCC) Obstructive sleep apnea syndrome Obstructive sleep apnea (adult) (pediatric) Essential hypertension (CMS/HCC) Unspecified essential hypertension Type 2 diabetes mellitus with stage 2 chronic kidney disease, without long-term current use of insulin (CMS/HCC) Mixed hyperlipidemia (CMS/HCC) Mixed hyperlipidemia Vaginal irritation Pruritus of genital organs Wellness examination- Primary Type 2 diabetes mellitus with diabetic polyneuropathy, without long-term current use of insulin (CMS/HCC) Obstructive sleep apnea syndrome Obstructive sleep apnea (adult) (pediatric) Essential hypertension (CMS/HCC) Unspecified essential hypertension Stage 3a chronic kidney disease (HCC) (CMS/HCC) Urgency incontinence Urge incontinence Acquired hypothyroidism (CMS/HCC) Unspecified hypothyroidism Type 2 diabetes mellitus with stage 3a chronic kidney disease, without long-term current use of insulin (HCC) ([facility]) Mixed hyperlipidemia (CMS/HCC) Mixed hyperlipidemia Type 2 diabetes mellitus with diabetic polyneuropathy, without long-term current use of insulin (CMS/HCC)- Primary Urinary frequency Obstructive sleep apnea syndrome Obstructive sleep apnea (adult) (pediatric) Essential hypertension (CMS/HCC) Unspecified essential hypertension CABELLO (nonalcoholic steatohepatitis) Other chronic nonalcoholic liver disease Hypertensive chronic kidney disease with stage 1 through stage 4 chronic kidney disease, or unspecified chronic kidney disease (CMS/HCC) Stage 3a chronic kidney disease (HCC) ([facility]) Acquired hypothyroidism ([facility]/HCC) Unspecified hypothyroidism Mixed hyperlipidemia ([facility]/HCC) Mixed hyperlipidemia Anxiety Anxiety state, unspecified Type 2 diabetes mellitus with stage 2 chronic kidney disease, without long-term current use of insulin ([facility]) documented in this encounter [facility]* Diagnosis Type 2 diabetes mellitus without complication, without long-term current use of insulin ([facility])- Primary Seasonal allergic rhinitis due to pollen Darcy albicans infection Obstructive sleep apnea syndrome Obstructive sleep apnea (adult) (pediatric) Essential hypertension (CMS/HCC) Unspecified essential hypertension Stage 3a chronic kidney disease (HCC) ([facility]) Acquired hypothyroidism ([facility]/HCC) Unspecified hypothyroidism Encounter for immunization- Primary Type 2 diabetes mellitus without complication, without long-term current use of insulin ([facility]) Obstructive sleep apnea syndrome Obstructive sleep apnea (adult) (pediatric) Essential hypertension (CMS/HCC) Unspecified essential hypertension Type 2 diabetes mellitus with stage 2 chronic kidney disease, without long-term current use of insulin ([facility]) Mixed hyperlipidemia ([facility]/HCC) Mixed hyperlipidemia Vaginal irritation Pruritus of genital organs Wellness examination- Primary Type 2 diabetes mellitus with diabetic polyneuropathy, without long-term current use of insulin (CMS/HCC) Obstructive sleep apnea syndrome Obstructive sleep apnea (adult) (pediatric) Essential hypertension (CMS/HCC) Unspecified essential hypertension Stage 3a chronic kidney disease (HCC) (CMS/HCC) Urgency incontinence Urge incontinence Acquired hypothyroidism (CMS/HCC) Unspecified hypothyroidism Type 2 diabetes mellitus with stage 3a chronic kidney disease, without long-term current use of insulin (HCC) (CMS/HCC) Mixed hyperlipidemia (CMS/HCC) Mixed hyperlipidemia Type 2 diabetes mellitus with diabetic polyneuropathy, without long-term current use of insulin (CMS/HCC)- Primary Urinary frequency Obstructive sleep apnea syndrome Obstructive sleep apnea (adult) (pediatric) Essential hypertension (CMS/HCC) Unspecified essential hypertension CABELLO (nonalcoholic steatohepatitis) Other chronic nonalcoholic liver disease Hypertensive chronic kidney disease with stage 1 through stage 4 chronic kidney disease, or unspecified chronic kidney disease (CMS/HCC) Stage 3a chronic kidney disease (HCC) (CMS/HCC) Acquired hypothyroidism (CMS/HCC) Unspecified hypothyroidism Mixed hyperlipidemia (CMS/HCC) Mixed hyperlipidemia Anxiety Anxiety state, unspecified Primary hypertension (CMS/HCC) Unspecified essential hypertension documented in this encounter [facility]* Diagnosis Type 2 diabetes mellitus without complication, without long-term current use of insulin (CMS/HCC)- Primary Seasonal allergic rhinitis due to pollen Darcy albicans infection Obstructive sleep apnea syndrome Obstructive sleep apnea (adult) (pediatric) Essential hypertension (CMS/HCC) Unspecified essential hypertension Stage 3a chronic kidney disease (HCC) (CMS/HCC) Acquired hypothyroidism (CMS/HCC) Unspecified hypothyroidism Encounter for immunization- Primary Type 2 diabetes mellitus without complication, without long-term current use of insulin (CMS/HCC) Obstructive sleep apnea syndrome Obstructive sleep apnea (adult) (pediatric) Essential hypertension (CMS/HCC) Unspecified essential hypertension Type 2 diabetes mellitus with stage 2 chronic kidney disease, without long-term current use of insulin (CMS/HCC) Mixed hyperlipidemia (CMS/HCC) Mixed hyperlipidemia Vaginal irritation Pruritus of genital organs Wellness examination- Primary Type 2 diabetes mellitus with diabetic polyneuropathy, without long-term current use of insulin (CMS/HCC) Obstructive sleep apnea syndrome Obstructive sleep apnea (adult) (pediatric) Essential hypertension (CMS/HCC) Unspecified essential hypertension Stage 3a chronic kidney disease (HCC) (CMS/HCC) Urgency incontinence Urge incontinence Acquired hypothyroidism (CMS/HCC) Unspecified hypothyroidism Type 2 diabetes mellitus with stage 3a chronic kidney disease, without long-term current use of insulin (HCC) (CMS/HCC) Mixed hyperlipidemia (CMS/HCC) Mixed hyperlipidemia Type 2 diabetes mellitus with diabetic polyneuropathy, without long-term current use of insulin (CMS/HCC)- Primary Urinary frequency Obstructive sleep apnea syndrome Obstructive sleep apnea (adult) (pediatric) Essential hypertension (CMS/HCC) Unspecified essential hypertension CABELLO (nonalcoholic steatohepatitis) Other chronic nonalcoholic liver disease Hypertensive chronic kidney disease with stage 1 through stage 4 chronic kidney disease, or unspecified chronic kidney disease (CMS/HCC) Stage 3a chronic kidney disease (HCC) (CMS/HCC) Acquired hypothyroidism (CMS/HCC) Unspecified hypothyroidism Mixed hyperlipidemia (CMS/HCC) Mixed hyperlipidemia Anxiety Anxiety state, unspecified Type 2 diabetes mellitus with diabetic polyneuropathy, without long-term current use of insulin (CMS/HCC) documented in [facility] encounter [facility] N[facility]ative - Reported* Type Description [...] CATARACTS REMOVED BILATERAL Hospitalization History see above [facility] Other History general Narrative - Reported* Type [...] CATARACTS REMOVED BILATERAL Hospitalization History see above [facility] Other Chief Complaint and Reason for Visit Chief Complaint Elevated Liver Enzym es Chief Complaint n75.81 Chief Complaint n75.81 Fatty Liver Advance Directives Advance Directive Response Recorded Date/ Time Advance Directives No August 10:18am Advance Directive Response Recorded Date/ Time Advance Directives No August 11:18am Summary Purpose Family History Relationship Condition Age at Onset Recorded Date/T marcos brother Malignant neoplasm Unknown Family history of emphysema Unknown father Diabetes mellitus Unknown Family history of mental disorder Unknown Unknown family member Family history of other condition Unknow n Not Specified Hypertension Unknown Heart disease Unknown Malignant neoplasm Unknown Diabetes mellitus Unknown Reason for Referral Specialty Diagnoses / Procedures Referred By Contlizandro t Referred To Contact Ent - Otolaryngology Diagnoses Oral lesion Procedures CONSULT TO ENT OFFICE/OUTPATIENT [facility] 60 MINUTES Elicia Cross, REGISTRAR NURSES' REGISTRY.MACHINE SHOP SPECIALIST [address] [place] [address] Referral ID Status Reason Start Date Expiration Date V isits Requested Visits Authorized [id number] Closed PCP Requested Referral 10/11/2023 10/10/2024 1 1 Specialty Diagnoses / Procedures [facility] Referred To Contact Diagnoses Other specified hearing loss, unspecified ear Procedures HEARING TEST/AUDIOGRAM COMPRE AUDIOMETRY THRESHOLD EVAL SP RECOGNIJ Elicia Cross, REGISTRAR NURSES' REGISTRY.MACHINE SHOP SPECIALIST [address] [facility] [address] [place] [address] [facility] [address] [place] [address] Referral ID Status Reason Start Date Expiration Date Visits Requested Visits Authorized [id number] Authorized Auto-Generat ed Referral 06/14/2023 06/14/2024 1 1 Additional Source Comments REASON FOR VISIT (unrecogniz ed section and content) Specialty Diagnoses / Procedures [facility]erred By [facility] Referred To Contact Diagnoses Other specified hearing loss, unspecified ear Procedures HEARING TEST/AUDIOGRAM COMPRE AUDIOMETRY THRESHOLD EVAL SP RECOGNElicia Dobbins, REGISTRAR NURSES' REGISTRY.[facility] [address] [facility] [address] [place] [address] [facility] [address] [place] [address] Referral ID Status Reason Start Date Expiration Date V isits Requested Visits Authorized [id number] Closed Auto-Generate d Referral 06/14/2023 06/14/2024 1 1 Reason Comments Hearing Loss Specialty Diagnoses / Procedures Referred By Contac t Referred To Contact Physical Therapy Diagnoses DDD (degenerative disc disease), lumbar Procedures NE OFFICE/OUTPATIENT [facility] MDM 60 MINUTES John Higgins, DO [address] [facility] [address] [place] [address] Carlin Morena T, PT [address] [facility] [address] [place] [address] Referral ID Status Reason Start Date Expiration Date Visits Requested Visits Authorized [id number] Authorized Consult and Treat 10/16/2023 04/13/2024 99 99 Reason Onset Date Comments Med Refill 11/19/2023 Reason Comments Appointment Reason Comments Consult Specialty Diagnoses / Procedures Referred By Rasheeda billy Referred To Contact Ent - Otolaryngology Diagnoses Oral lesion Procedures CONSULT TO ENT OFFICE/OUTPATIENT NEW HIGH MDM 60 MINUTES Elicia Cross, REGISTRAR NURSES' REGISTRY.MACHINE SHOP SPECIALIST [address] [place] [address] Referral ID Status Reason Start Date Expiration Date V isits Requested Visits Authorized [id number] Closed PCP Requested Referral 10/11/2023 10/10/2024 1 1 Reason Comments Med Refill Reason Comments Skin Check Care Teams (unrecognized sec tion and content) Team Status: Inactive Member Role Status Dates Wendy Chinchilla MD Primary Care Provider Active Jignesh Sargent MD Attending Provider Active Team Status: Active Member Role Status Dates Wendy Chinchilla MD Primary Care Provider Active Foot Miter Operator Relationship Specialty Start Date End Date Wendy Chinchilla MD [address] [place] [address] PCP - Devoted 10/08/22 Wendy Chinchilla MD [address] [place] [address] PCP - General Family Medicine 02/23/23 Foot Miter Operator Relationship Specialty Start Date End Date Wendy Chinchilla MD [address] [place] [address] PCP - Devoted 10/08/22 Wendy Chinchilla MD [address] [place] [address] PCP - General Family Medicine 02/23/23 Foot Miter Operator Relationship Specialty Start Date End Date Wendy Chinchilla MD [address] [place] [address] PCP - Devoted 10/08/22 Wendy Chinchilla MD [address] [place] [address] PCP - General Family Medicine 02/23/23 Foot Miter Operator Relationship Specialty Start Date End Date Wendy Chinchilla MD [address] [facility] [place] [address] PCP - Devoted 10/08/22 Wendy Chinchilla MD [address] [place] [address] PCP - General Family Medicine 02/23/23 Foot Miter Operator Relationship Specialty Start Date End Date Wendy Chinchilla MD [address] [facility] [place] [address] PCP - Devoted 10/08/22 Wendy Chinchilla MD [address] [facility] [place] [address] PCP - General Family Medicine 02/23/23 Team [...] January 03, 2024 End: January 03, 2024 Foot Miter Operator Relationship Specialty Start Date End Date Wendy Chinchilla MD [address] [place] [address] PCP - Devoted 10/08/22 Wendy Chinchilla MD [address] [place] [address] PCP - General Family Medicine 02/23/23 Foot Miter Operator Relationship Specialty Start Date End Date Wendy Chinchilla MD [address] [place] [address] PCP - Devoted 10/08/22 Wendy Chinchilla MD [address] [place] [address] PCP - General Family Medicine 02/23/23 Foot Miter Operator Relationship Specialty Start Date End Date Wendy Chinchilla MD [address] [place] [address] PCP - Devoted 10/08/22 Wendy Chinchilla MD [address] [place] [address] PCP - General Family Medicine 02/23/23 Foot Miter Operator Relationship Specialty Start Date End Date Wendy Chinchilla MD [address] [place] [address] PCP - Devoted 10/08/22 Wendy Chinchilla MD [address] [place] [address] PCP - General Family Medicine 02/23/23 Foot Miter Operator Relationship Specialty Start Date End Date Wendy Chinchilla MD [address] [place] [address] PCP - Devoted 10/08/22 Wendy Chinchilla MD [address] [place] [address] PCP - General Family Medicine 02/23/23 Goals (unrecognized section and content) Goals may be documented in a n alternate section INFORMATION SOURCE (unrecogn ized section and content) DATE CREATED AUTHOR 11/30/2022 [facility] dical Specialist DATE CREATED AUTHOR AUTHOR'S ORGANIZ ATION 02/16/2023 [facility] DATE CREATED AUTHOR AUTHOR'S ORGANIZ ATION 02/21/2024 [facility] DATE CREATED AUTHOR AUTHOR'S ORGANIZ ATION 03/07/2024 [facility] DATE CREATED AUTHOR AUTHOR'S ORGANIZ ATION 07/17/2024 [facility] DATE CREATED AUTHOR AUTHOR'S ORGANIZ ATION 07/22/2024 [facility] dical Specialists EPIC Source Comments (unrecognize d section and content) In the event this informatio n is protected by the Federal Confidentiality of Alcohol and Drug Abuse Patient Records regulations: The Federal rules restrict any use of the information to criminally investigate or prosecute any alcohol or drug abuse patient.[facility] the event this information is protected by the Federal Confidentiality of Alcohol and Drug Abuse Patient Records regulations: The Federal rules restrict any use of the information to criminally investigate or prosecute any alcohol or drug abuse patient.[facility] Hospital[facility] the event this information is protected by the Federal Confidentiality of Alcohol and Drug Abuse Patient Records regulations: The Federal rules restrict any use of the information to criminally investigate or prosecute any alcohol or drug abuse patient.[facility] Hospital[facility] the event this information is protected by the Federal Confidentiality of Alcohol and Drug Abuse Patient Records regulations: The Federal rules restrict any use of the information to criminally investigate or prosecute any alcohol or drug abuse patient.[facility] Hospital[facility] the event this information is protected by the Federal Confidentiality of Alcohol and Drug Abuse Patient Records regulations: The Federal rules restrict any use of the information to criminally investigate or prosecute any alcohol or drug abuse patient.[facility] FOR RECORDS PERTAINING TO PATIENTS WHO ARE [...] BE BASED ON THE PRIMARY CLINICAL RECORDS. [facility]. provides no warranty or guarantee of the accuracy or completeness of information in this document.
[2024-08-19 11:03] LABS: Bilirubin Urine NEGATIVE (NEGATIVE); Blood Urine TRACE-L (NEGATIVE); Clarity Urine CLEAR (CLEAR); Color Urine LT. YELLOW (YELLOW); Glucose Urine UA >=1000 mg/dL (NEGATIVE); Ketones Urine NEGATIVE (NEGATIVE); Leukocyte Esterase Urine NEGATIVE (NEGATIVE); Nitrite Urine NEGATIVE (NEGATIVE); Protein Urine NEGATIVE (NEG/TRACE); Urobilinogen Urine 0.2 EU/dL (0.2-1.0)
[2024-08-19 11:06] LABS: Hematocrit 52.2 % (36.0-48.0); Hemoglobin 16.7 g/dL (12.0-16.0); Mean Corpuscular Hemoglobin 27.6 pg (26.7-34.0); Mean Corpuscular Volume 86.4 fL (81.0-99.0); Mean Platelet Volume 9.8 fL (9.5-13.5); Platelet Count 193 10^3/uL (150-450); Red Blood Count 6.04 10^6/uL (4.20-5.40); Red Cell Distribution Width 14.1 % (11.0-15.0)
[2024-08-19 11:44] LABS: Albumin Level 4.2 g/dL (3.4-5.0); Anion Gap 14.8; BUN Creatinine Ratio 17.2; Calcium 10.4 mg/dL (8.5-10.1); Carbon Dioxide 30.4 mmol/L (21.0-32.0); Chloride 100 mmol/L (98-107); Estimated GFR (African America 56 (>=60 mL/min/1.73m^2); Estimated GFR (Non-African Ame 46 (>=60 mL/min/1.73m^2); Glucose 127 mg/dL (74-106); Magnesium 2.1 mg/dL (1.8-2.4); Phosphorus 4.6 mg/dL (2.6-4.7); Potassium 4.2 mmol/L (3.5-5.1); Sodium 141 mmol/L (136-145); Uric Acid 6.1 mg/dL (2.6-6.0)
[2024-08-19 11:47] LABS: Creatinine Urine Random 34.11 mg/dL (20.00-300.00); Protein Creatinine Ratio Urine 0.18; Total Protein Urine Random <6.0 mg/dL (<=11.9)
[2024-08-19 12:41] LABS: Bacteria Urine TRACE #/HPF (NONE SEEN); Cast Seen? NONE SEEN #/LPF (NONE SEEN); Crystals Seen? None Seen #/HPF (None Seen); Mucus Urine NONE SEEN (NONE SEEN); Squamous Epithelial Cell Urine FEW #/LPF (NONE/RARE); WBC Urine 0-2 #/HPF (NONE SEEN)
[2024-08-20 12:12] LABS: PTH, Intact 15 pg/mL (15-65)
== END 2024-08-19 10:30 | disposition home or self-care (01) ==
LOC: LAB 10:31
PROVIDERS: PCP Family Medicine; Visit Provider Internal Medicine
DX: E79.0 Hyperuricemia without signs of inflammatory arthritis and tophaceous disease (principal); R31.29 Other microscopic hematuria; E55.9 Vitamin D deficiency, unspecified; I12.9 Hypertensive chronic kidney disease with stage 1 through stage 4 chronic kidney disease, or unspecified chronic kidney disease; E11.22 Type 2 diabetes mellitus with diabetic chronic kidney disease; N18.30 Chronic kidney disease, stage 3 unspecified; K75.81 Nonalcoholic steatohepatitis (NASH)
CPT/HCPCS: 36415; 80069; 81001; 82306; 82570; 83735; 83970; 84156; 84550; 85027

== ENCOUNTER 2024-09-10 20:40 | Outpatient (OUT) | payer OTHER, SELFPAY ==
--- OUTSIDE RECORDS SUMMARY | 2024-09-10 20:43 | XMS_ITS | CCD ---
Author Organization [facility] Care Team Providers Care Catering And Events Manager Name Role Phone Ronald, Julien Unavailable Jignesh Sargnet Unavailable MD Wendy Chinchilla Primary Care Provider [phone] MD Jignesh Sargent Attending Provider [phone] RONALD, JULIEN Attending Unavailable RONALD, JULIEN Consulting Unavailable RONALD, JULIEN Admitting Unavailable DR WENDY CHINCIHLLA Primary Care Unavailable JIGNESH SARGENT Consulting Unavailable DR WENDY CHINCHILLA Primary Care Unavailable MISC, DR FOWLER Attending Unavailable MISC, DR FOWLER Admitting Unavailable RONALD, JULIEN Attending Unavailable RONALD, JULIEN Consulting Unavailable RONALD, JULIEN Admitting Unavailable DR WENDY CHINCHILLA Primary Care Unavailable Unavailable Primary Care Provider UnavailWendy Monae MD Unavailable Wendy Chinchilla MD Primary Care Provider MD Wendy Tomlinson Primary Care Pr ovider YAQUELIN Hernandez Attending Provider Fibroscan, Temporary Attending Provider Unavaila ble Unavailable Primary Care Provider UnavailJENNI Waterman Attending Unavailable ELICIA CROSS Referring Unavailable ELICIA CROSS Attending Unavailable ESTER BLANCA Attending Unavailable ELICIA CROSS Referring Unavailable WENDY CHINCHILLA Referring Unavailable WENDY CHINCHILLA Primary Care Unavailable REBECA HERRERA Attending Unavailable REBECA HERRERA Referring Unavailable JOHN HIGGINS Attending Unavailable JOHN HIGGINS Referring Unavailable JOHN HIGGINS Referring Unavailable MORENA FARR Attending Unavailable KEATON, JOHN العلي Referring Unavailable ZANDER CLINE Attending Unavailable KEATON, JOHN العلي Referring Unavailable VAISHALI HENDRICKS Attending Unavailable KEATON, JOHN العلي Referring Unavailable SON ZANDER Attending Unavailable KEATON, JOHN العلي Referring Unavailable SON, ZANDER Attending Unavailable KEATON, JOHN العلي Referring Unavailable SON, ZANDER Attending Unavailable KEATON, JOHN العلي Referring Unavailable FELTSATISH BEYER Attending Unavailable SON, ZANDER Attending Unavailable KEATON, JOHN العلي Referring Unavailable SONZANDER Attending Unavailable KEATON, JOHN العلي Referring Unavailable RENÉE, WENDY Attending Unavailable SON, ZANDER Attending Unavailable KEATON, OJHN العلي Referring Unavailable SON, ZANDER Attending Unavailable KEATON, JOHN العلي Referring Unavailable BLACKSTON, MORENA Billy Attending Unavailable KEATON, JOHN العلي Referring Unavailable KEATON, JOHN العلي Attending Unavailable RENÉE, WENDY Attending Unavailable RENÉE, WENDY Attending Unavailable RENÉE, WENDY Attending Unavailable RENÉE, WENDY Attending Unavailable RICHARDS, BARB Fields Attending Unavailable RICHARDS, BARB Fields Referring Unavailable RICHARDS, BARB Fields Referring Unavailable DENBESTENDOLLY Attending Unavailable RENÉE, WENDY Referring Unavailable RENÉE, WENDY Attending Unavailable FELTERSATISH Attending Unavailable RENÉE, WENDY Referring Unavailable RENÉE, WENDY Attending Unavailable FELTERSATISH Attending Unavailable ScovannerMt Attending Unavailable JedsWendy Brown Primary Care Un available ScMt brady Admitting Unavailable ScovanMt chong Attending Unavailable Wendy Tomlinson Primary Care Un available ScovannerMt Admitting Unavailable ScovannerMt Attending Unavailable JedsWendy Brown Primary Care Un available Scovanner, [place] Admitting Unavailable ScovannerMt Admitting Unavailable JedsWendy Brown Primary Care Un available ScMt brady Attending Unavailable Allergies Allergy Classification Reported Allergen(s) Allergy Type Date of Onset Reaction(s) Facility (17 sources) Wound Dressing Adhesive Drug Intolerance 7 Rash [facility] (1 source) Adhesive agent; Translations: [ADHESIVE] Propensity to adverse reactions to drug (disorder) 7 [facility] Medications Current Medications Medication Drug Class(es) Dates Sig (Normalized) Sig (Original) amoxicillin 500 mg oral tablet (17 sources) Penicillin-class Antibacterial Start: 10-09-2023 take 4 [...] (20 sources) HMG-CoA Reductase Inhibitor Start: 04-12-2024 End: 08-22-2024 atorvastatin (Lipitor) 10 MG tablet Indications: Mixed hyperlipidemia (CMS/HCC) TAKE 1 TABLET DAILY 100 tablet 1 08/22/2024 Active Start: 11-12-2023 take 1 tablet by [...] every 24 hours. Blood Glucose Monitoring Suppl (DataLockeruch Verio Reflect) w/Device kit (17 sources) Start: 11-04-2022 Blood Glucose Monitoring Suppl (DataLocker[employer] Verio Reflect) w/Device kit 11/04/2022 Active Start: 11-04-2022 Blood Glucose Monitoring Suppl (DataLocker[employer] Verio Reflect) w/Device kit 24 hr buPROPion hydrochloride 150 mg extended release oral tablet (1 source) Aminoketone take 1 tablet by mouth every twenty-four hours buPROPion HCl ER (XL) 150 MG 1 tablet in the morning Orally Once a day Active Calcium 7064-5680 MG-UNIT (4 sources) take 1 tablet by mouth once daily Calcium 3349-3864 MG-UNIT 1 tablet Orally Once a day Active calcium carbonate 1500 mg oral tablet (5 sources) calcium carbonat e 1500 (600 Ca) MG tablet every 12 (twelve) hours. 0 Active calcium carbonate 600 mg / cholecalciferol 0.01 mg oral tablet (12 sources) Vitamin D Start: 024 Calcium Carb-Cholecalcifero [...] day Active clotrimazole 10 mg/ml topical cream (12 sources) Azole Antifungal Start: clotrimazole (Lotrimin) 1 [...] oral tablet (5 sources) Azole Antifungal Start: fluconazole (Diflucan) 150 MG tablet fluticasone propionate 0.05 mg/actuat metered dose nasal spray (20 sources) Corticosteroid Start: take 1 spray(s) nasal route once daily [...] above: Take by mouth as dir ected. C-Prepsiuatjtx-Kklrf-B 12-B6 (Metanx) 3-90.314-2-35 MG capsule (17 sources) Start: K-Ulktiyejrddd-Pcepr-B 12-B6 (Metanx) 3-90.314-2-35 MG capsule Indications: Diabetic polyneuropathy associated with type 2 diabetes mellitus (CMS/HCC) TAKE 1 CAPSULE BY MOUTH TWO TIMES A DAY DIRECTED 180 capsule 3 08/17/2023 Active rjefqecmx-Y7-seF74-alg al oil (METANX, ALGAL OIL,) 3 mg-35 mg-2 mg -90.314 mg cap (4 sources) doaadikuh-Q3-obJ 12-alg al oil (METANX, ALGAL OIL,) 3 mg-35 mg-2 mg -90.314 mg cap Take by mouth as directed. 0 Active Comment on above: Take by mouth as dir ected. levothyroxine sodium 0.1 mg oral tablet (20 sources) l-Thyroxine Start: 3 End: Synthroid 100 MCG tablet Indications: Acquired hypothyroidism (CMS/HCC) TAKE 1 TABLET DAILY 100 tablet 1 08/18/2024 Active take 1 tablet by sunni th every twenty-four hours Levothyroxine Sodium 100 MCG 1 tablet Orally Once a day Active lisinopril 2.5 mg oral tablet (20 sources) Angiotensin Converting Enzyme Inhibitor Start: 12-03-2023 [...] Vitamins-Minerals (Womens Multi Vitamin & Mineral) tablet (17 sources) Multiple Vitamins-Minerals (Womens Multi Vitamin & Mineral) tablet Active Multiple Vitamin s-Minerals (Womens Multi Vitamin & Mineral) tablet Multivitamin capsule (4 sources) take 1 capsule by mouth once daily in the morning Multivitamin capsule Take 1 capsule by mouth every morning. 0 Active Comment on above: Take 1 capsule by mo uth every morning. Multivitamin preparation (6 sources) Multivitamin - Orally Active [place] 3 (4 sources) [place] 3 Active 24 hr oxybutynin chloride 15 mg extended release oral tablet (20 sources) Cholinergic Muscarinic Antagonist Start: take 1 [...] day Active SITagliptin 50 mg oral tablet (13 sources) Dipeptidyl Peptidase 4 Inhibitor Start: 06-15-2024 End: 06-15-2025 take 1 tablet by mouth once daily SITagliptin (Januvia) 50 MG tablet Indications: Type 2 diabetes mellitus with diabetic polyneuropathy, without long-term current use of insulin ([facility]) Take 1 tablet (50 mg) by mouth Daily 90 tablet 08/15/2024 11/13/2024 Active triamcinolone acetonide 0.001 mg/mg oral paste [...] Active Womens Multivitamin - (4 sources) Womens Multivita min - as directed Orally Active Completed/Discontinued Medications Medication Drug Class(es) Dates Sig (Normalized) Sig (Original) meloxicam 15 mg oral tablet (4 sources) Nonsteroidal Anti-inflammatory Drug take 1 tablet by mouth once daily as needed Meloxicam 15 MG 1 tablet Orally Once a day PRN ONLY Not-Taking Problems Active Problems Problem Classification Problem Date Documented Date Episodic/Chronic Anxiety disorders (17 sources) Anxiety; Translations: [Anxiety disorder, unspecified] Onset: 3 04-27-2023 Chronic Chronic kidney disease (20 sources) Chronic kidney disease stage 3; Translations: [Chronic kidney disease, stage 3 (moderate)] Onset: 1 Resolved: 1 Chronic Coronary atherosclerosis and other heart disease (17 sources) Atypical angina; Translations: [Atypical angina] Onset: 3 04-27-2023 Chronic Diabetes mellitus with complications (20 sources) Type 2 diabetes mellitus well controlled; Translations: [Type 2 diabetes mellitus with hyperglycemia] Onset: 3 Chronic Diabetes mellitus without complication (20 sources) Type 2 diabetes mellitus; Translations: [Type 2 diabetes mellitus without complications] Onset: 3 08-10-2023 Chronic Disorders of lipid metabolism (20 sources) Mixed hyperlipidemia; Translations: [Mixed hyperlipidemia] Onset: 3 08-10-2023 Chronic Esophageal disorders (20 sources) Gastroesophageal reflux disease without esophagitis; Translations: [Gastro-esophageal reflux disease without esophagitis] Onset: 3 04-27-2023 Chronic Essential hypertension (20 sources) Hypertensive disorder; Translations: [Essential (primary) hypertension] Onset: 3 08-10-2023 Chronic Genitourinary symptoms and ill-defined conditions (20 sources) Urinary incontinence; Translations: [Unspecified urinary incontinence] Onset: 3 04-27-2023 Chronic Hepatitis (18 sources) Nonalcoholic steatohepatitis; Translations: [Nonalcoholic steatohepatitis (CABELLO)] [...] unspecified] Onset: 1 Resolved: 2 Chronic Osteoarthritis (17 sources) Osteoarthritis of knee; Translations: [Osteoarthritis of knee, unspecified] Onset: 3 04-27-2023 Chronic Other acquired deformities (17 sources) Joint contracture of the ankle and foot; Translations: [Contracture, unspecified ankle] Onset: 3 05-03-2023 Chronic Other and unspecified benign neoplasm (2 sources) Melanocytic nevus of trunk; Translations: [Melanocytic nevi of trunk] 07-21-2024 Episodic Other circulatory disease (2 sources) Spider nevus; Translations: [Nevus, non-neoplastic] 07-21-2024 Episodic Other connective tissue disease (17 sources) Artificial knee joint present; Translations: [Presence of left artificial knee joint] Onset: 3 04-27-2023 Chronic Other connective tissue disease (17 sources) History of total knee arthroplasty; Translations: [Presence of right artificial knee joint] Onset: 3 04-27-2023 Chronic Other diseases of bladder and urethra (20 sources) Overactive bladder; Translations: [Overactive bladder] Onset: [...] Chronic Other ear and sense organ disorders (17 sources) Chronic non-infective otitis externa; Translations: [Other otitis externa, bilateral] Onset: 3 Resolved: 4 07-21-2023 Chronic Other ear and sense organ disorders (17 sources) Sensorineural hearing loss, bilateral; Translations: [Sensorineural hearing loss, bilateral] Onset: 3 04-27-2023 Chronic Other liver diseases (19 sources) Steatosis of liver; Translations: [Fatty (change of) liver, not elsewhere classified] Onset: 3 04-27-2023 Chronic Other liver diseases (2 sources) Fatty (change of) liver, not elsewhere classified; Translations: [Fatty (change of) liver, not elsewhere classified] Onset: 4 Chronic Other liver diseases (1 source) Portal hypertension; Translations: [Portal hypertension] Onset: 4 Chronic Other nervous system disorders (17 sources) Chronic pain; Translations: [Other chronic pain] Onset: 3 04-27-2023 Chronic Other non-traumatic joint disorders (17 sources) Derangement of right shoulder joint; Translations: [Other specific joint derangements of right shoulder, not elsewhere classified] Onset: 3 04-27-2023 Chronic Other nutritional; endocrine; and metabolic disorders (8 sources) Obese class I; Translations: [Body mass index (BMI) 33.0-33.9, adult] Chronic Other nutritional; endocrine; and metabolic disorders (17 sources) Morbid obesity; Translations: [Morbid (severe) obesity due to excess calories] Onset: 3 04-27-2023 Chronic Other nutritional; endocrine; and metabolic disorders (2 sources) Hyperuricemia without signs of inflammatory arthritis and tophaceous disease Episodic Other skin disorders (2 sources) Seborrheic keratosis; Translations: [Other seborrheic keratosis] 07-21-2024 Episodic Other upper respiratory disease (17 sources) Allergic rhinitis due to pollen; Translations: [Allergic rhinitis due to pollen] Onset: 3 04-27-2023 Chronic Prolapse of female genital organs (20 sources) Midline cystocele; Translations: [Cystocele, midline] Onset: 3 04-27-2023 Chronic Residual codes; unclassified (17 sources) Obstructive sleep apnea syndrome; Translations: [Obstructive sleep apnea (adult) (pediatric)] Onset: 3 04-27-2023 Chronic Spondylosis; intervertebral disc disorders; other back problems (20 sources) Degeneration of lumbar intervertebral disc; Translations: [Other intervertebral disc degeneration, lumbar region] Onset: 3 11-09-2023 Chronic Thyroid disorders (20 sources) Hypothyroidism; Translations: [Hypothyroidism, unspecified] Onset: 3 08-10-2023 Chronic Unclassified (1 source) CHRN KIDNEY DISEASE STG 3 UNSP; Translations: [CHRN KIDNEY DISEASE STG 3 UNSP] Onset: 3 Past or Other Problems Problem Classification Problem Date Documented Da te Episodic/Chronic Adjustment disorders (17 sources) Grief finding; Translations: [Adjustment disorder with [...] Onset: 11-12-2023 08-10-2023 Episodic Gastritis and duodenitis (17 sources) Gastritis; Translations: [Gastritis, unspecified, without bleeding] Onset: 04-27-2023 04-27-2023 Episodic Genitourinary symptoms and ill-defined conditions (20 sources) Hematuria, unspecified; Translations: [Urinary system finding] Onset: 08-10-2021 Resolved: 02-13-2022 Episodic Mood disorders (17 sources) Mild major depression, single episode; Translations: [Major depressive disorder, single episode, mild] Onset: 04-27-2023 Resolved: 03-11-2024 04-27-2023 Chronic Other connective tissue disease (17 sources) Pain of right calf; Translations: [Pain in right lower leg] Onset: 04-27-2023 04-27-2023 Episodic Other connective tissue disease (17 sources) Recurrent falls ; Translations: [Repeated falls] Onset: 04-27-2023 04-27-2023 Episodic Other ear and sense organ disorders (17 sources) Decreased hearing ; Translations: [Unspecified hearing loss, bilateral] Onset: 04-27-2023 Resolved: 12-07-2023 04-27-2023 Chronic Other ear and sense organ disorders (17 sources) Ear pressure sensation; Translations: [Other specified disorders of ear, bilateral] Onset: 04-27-2023 04-27-2023 Episodic Other liver diseases (5 sources) Abnormal levels of other serum enzymes; Translations: [ABNORMAL LEVELS OTHER SERUM ENZYMES] Onset: 2022 Episodic Other nervous system disorders (17 sources) Carpal tunnel syndrome of left wrist; Translations: [Carpal tunnel syndrome, left upper limb] Onset: 04-27-2023 Resolved: 12-07-2023 04-27-2023 Chronic Other nervous system disorders (17 sources) Difficulty walking; Translations: [Difficulty in walking, not elsewhere classified] Onset: 04-27-2023 Resolved: 03-11-2024 04-27-2023 Chronic Other nervous system disorders (17 sources) Abnormal gait; Translations: [Unsteadiness on feet] Onset: 04-27-2023 04-27-2023 Episodic Other non-traumatic joint disorders (17 sources) Pain in left knee; Translations: [Pain in joint, lower leg] Onset: 04-27-2023 04-27-2023 Episodic Other non-traumatic joint disorders (17 sources) Anterior knee pain; Translations: [Pain in right knee] Onset: 04-27-2023 04-27-2023 Episodic Other nutritional; endocrine; and metabolic disorders (12 sources) Hyperuricemia; Translations: [Hyperuricemia without signs of inflammatory arthritis and tophaceous disease] Onset: 05-01-2024 05-01-2024 Episodic Other screening for suspected conditions (not mental disorders or infectious disease) (17 sources) Coronary artery finding; Translations: [Abnormal findings on diagnostic imaging of heart and coronary circulation] Onset: 06-04-2023 06-05-2023 Episodic Other upper respiratory disease (17 sources) Nasal discharge; Translations: [Other specified disorders of nose and nasal sinuses] Onset: 04-27-2023 04-27-2023 Episodic Otitis media and related conditions (17 sources) Dysfunction of bilateral eustachian tubes; Translations: [Unspecified Eustachian tube disorder, bilateral] Onset: 04-27-2023 Resolved: 03-11-2024 04-27-2023 Episodic Spondylosis; intervertebral disc disorders; other back problems (17 sources) Pain in thoracic spine; Translations: [Pain in thoracic spine] Onset: 04-27-2023 04-27-2023 Episodic Results Test Name Value Interpretation Reference Range Facility Hepatic Panelon 09-03-2024 Albumin [Mass/Vol] 4.6 g/dL Normal 3.5-5.7 [facility] Comment on above: Performed By: #### P T, HEPATIC #### [address] Albumin/Globulin [Mass ratio] 1.6 {ratio} Normal [facility] Comment on above: Performed By: #### P T, HEPATIC #### [address] ALP [Catalytic activity/Vol] 58 U/L Normal 34-104 [facility] Comment on above: Result Comment: PERF ORMED BY: [place] [address] PATHOLOGIST MUSEUM GUIDE RALPH RIOS M.D. Performed By: #### P T, HEPATIC #### [address] ALT [Catalytic activity/Vol] 40 U/L Normal 7-52 [facility] Comment on above: Performed By: #### P T, HEPATIC #### [address] AST [Catalytic activity/Vol] 32 U/L Normal 13-39 [facility] Comment on above: Performed By: #### P T, HEPATIC #### [place] [address] [place] Bilirubin [Mass/Vol] 0.5 mg/dL Normal 0.3-1.0 [facility] Comment on above: Performed By: #### P T, HEPATIC #### [address] Bilirubin,Indirect 0.4 mg/dL Normal [facility] Comment on above: Performed By: #### P T, HEPATIC #### [facility] [place] [address] Bilirubin.indirect [Mass/Vol] 0.10 mg/dL Normal 0.03-0.18 [facility] Comment on above: Performed By: #### P T, HEPATIC #### [address] Globulin (S) [Mass/Vol] 2.8 g/dL Normal [facility] Comment on above: Performed By: #### P T, HEPATIC #### [address] Protein [Mass/Vol] 7.4 g/dL Normal 6.4-8.9 [facility] Comment on above: Performed By: #### P T, HEPATIC #### [place] [id number] [facility] Prothrombin Time INRon 09-03 INR Coag (PPP) [Relative time] 1.0 {INR} Normal [facility] Comment on above: Result Comment: INR Therapeutic Range A) Pre- and Peroperative OAT started two weeks before surgery. NOT HIP SURGERY: 1.5 - 2.5 HIP SURGERY: 2 - 3 B) Primary and secondary prevention of venous THROMBOSIS: 2 - 3 C) Active venous thrombosis, pulmonary embolism and prevention of recurrent venous thrombosis: 2 - 3 D) Prevention of arterial thromboembolism including patients with mechanical heart valves: 3 - 4.5 PERFORMED BY: [place] [address] PATHOLOGIST MUSEUM GUIDE RALPH RIOS M.D. Performed By: #### P T, HEPATIC #### [address] PT Coag (PPP) [Time] 11.5 s Normal 9.0-12.9 [facility] Comment on above: Result Comment: A he matocrit value greater than 55% may lead to inaccurate results in coagulation testing. Patients having hematocrit values >55% require a special collection tube for coagulation studies. Please contact the laboratory at [phone] for redraw instructions. Performed By: #### P T, HEPATIC #### [facility] [place] [address] [facility] PTH, INTRAOPERATIVEon 10-20-2023 PTH, INTACT 15 pg/mL 15 - 65 pg/mL [facility] Comment on above: Performed at: [address] [id number] Home Support Worker: Ernesto Beebe PhD, Phone: [phone] [facility] ALL MAGNESIUMon 08-19-2024 Magnesium [Mass/Vol] 2.1 mg/dL 1.8 - 2 .4 mg/dL [facility] ALL RENAL FUNCTION PANELon 10-19-2023 Albumin [Mass/Vol] 4.2 g/dL 3.4 - 5.0 g/dL [facility] Anion gap [Moles/Vol] 14.8 mmol/L NO [facility] Calcium [Mass/Vol] 10.4 mg/dL High 8.5 - 10. 1 mg/dL [facility] Chloride [Moles/Vol] 100 mmol/L 98 - 10 7 mmol/L [facility] CO2 [Moles/Vol] 30.4 mmol/L 21.0 - 32.0 mmol/L [facility] Creatinine [Mass/Vol] 1.16 mg/dL High 0.55 - 1.02 mg/dL [facility] GFR/1.73 sq M.predicted CKD-EPI (S/P/Bld) [Vol rate/Area] 56 Low >=60 mL/min/1.7 3m 2 [facility] Glucose [Mass/Vol] 127 mg/dL High 74 - 106 mg/dL [facility] Phosphate [Mass/Vol] 4.6 mg/dL 2.6 - 4 .7 mg/dL [facility] Potassium [Moles/Vol] 4.2 mmol/L 3.5 - 5.1 mmol/L [facility] Sodium [Moles/Vol] 141 mmol/L 136 - 145 mmol/L [facility] TBH EGFR-NON AF ANDORRAN 46 Low >=60 mL/min/1.7 3m 2 [facility] Urea nitrogen [Mass/Vol] 20 mg/dL High 7.0 - 18.0 mg/dL [facility] Urea nitrogen/Creatinine [Mass ratio] 17.2 mg/mg [facility] ALL URIC ACIDon 08-19-2024 Urate [Mass/Vol] 6.1 mg/dL High 2.6 - 6.0 mg/dL [facility] CBC WITH PLATELET NO DI FFERENTIALon 08-19-2024 Erythrocyte distribution width (RBC) [Ratio] 14.1 % 11.0 - 15.0 % [facility] Hematocrit (Bld) [Volume fraction] 52.2 % High 36.0 - 48.0 % [facility] Hemoglobin (Bld) [Mass/Vol] 16.7 g/dL High 12.0 - 16.0 g/dL [facility] Interpretation and review of laboratory results Abnormal [facility] MCH (RBC) [Entitic mass] 27.6 pg 26.7 - 34.0 pg [facility] MCHC (RBC) [Mass/Vol] 32 g/dL 29.9 - 35.2 g/dL [facility] MCV (RBC) [Entitic vol] 86.4 fL 81.0 - 99.0 fL [facility] Platelet mean volume (Bld) [Entitic vol] 9.8 fL 9.5 - 13.5 fL [facility] TB PLT [address] [facility] RBC 6.04 High [facility] WBC 8 [facility] URINALYSIS, WITH MICROS COPICon 08-19-2024 BACTERIA URINE TRACE Abnormal NONE SEEN #/HPF [facility] BILIRUBIN URINE Negative NEGATIVE [facility] BLOOD URINE TRACE-L NEGATIVE [facility] CAST SEEN? NONE SEEN NONE SEEN #/LPF [facility] Clarity (U) CLEAR CLEAR [facility] Color (U) LT. YELLOW YELLOW [facility] CRYSTALS SEEN? None Seen None Seen #/HPF [facility] GLUCOSE URINE UA >=1000 Abnormal NEGATIVE mg/dL [facility] Interpretation and review of laboratory results Abnormal [facility] Ketones Ql (U) Negative NEGATIVE mg/dL [facility] Leukocyte esterase Test strip Ql (U) Negative NEGATIVE [facility] MUCUS URINE NONE SEEN NONE SEEN [facility] NITRITE URINE Negative NEGATIVE [facility] pH (U) 6.0 [pH] 5.0 - 9.0 [facility] PROTEIN URINE Negative NEG/TRACE mg/dL [facility] SPECIFIC GRAVITY URINE 1.010 1.005 - 1.025 [facility] SQUAMOUS EPITHELIAL CELL URINE FEW Abnormal NONE/RARE #/LPF [facility] TB RBC 2-5 Abnormal [facility] TB WBC 0-2 Abnormal NONE SEEN #/HPF [facility] UROBILINOGEN URINE 0.2 EU/dL 0.2 - 1.0 EU/dL [facility] YEAST URINE SEEN Abnormal NONE SEEN [facility] Comment on above: RARE [place]UDD[place] No Panel Informationon 08-19 [facility] Interpretation and review of laboratory results Abnormal [facility] URINE T PROTEIN CREAT RA TIOon 08-19-2024 CREATININE URINE RANDOM 34.11 mg/dL 20.00 - 300.00 mg/dL [facility] PROTEIN CREATININE RATIO URINE 0.18 [facility] TOTAL PROTEIN URINE RANDOM <6.0 NINF - 11.9 mg/dL [facility] VITAMIN D 25 OHon 2023 VITAMIN D 55.5 ng/mL [facility] Comment on above: <20 ng/mL Vit D defi cient 20-<30 ng/mL Vit D insufficient 30-100 ng/mL Vit D sufficient >100 ng/mL Potential Toxicity US RUQon 07-02-2024 US RUQ TITLE OF [...] Marker, Serum 3.1 ng/mL Normal 0.0-9.2 [facility] Comment on above: Result Comment: [employer] Electrochemiluminescence Immunoassay (ECLIA) Values obtained with different assay methods or kits cannot be used interchangeably. Results cannot be interpreted as absolute evidence of the presence or absence of malignant disease. This test is not interpretable in females. Performed at: [address] [id number] Home Support Worker: Ernesto Beebe PhD, Phone: [phone] PERFORMED BY: [place] [address] PATHOLOGIST MUSEUM GUIDE HARI BENDER M.D. Performed By: #### A FPTM #### [facility] , Alanine aminotransferase [En zymatic activity/volume] in Serum or PlasmaOrdered By: Mt Hernandez on 12-27-2023 ALT [Catalytic activity/Vol] 53 U/L High 7-52 [facility] Comment on above: Performed By: #### C MP, CBC #### [address] Albumin [Mass/volume] in Ser um or Plasma by Bromocresol green (BCG) dye binding methoOrdered By: Mt Hernandez on 12-27-2023 Albumin BCG dye [Mass/Vol] 4.7 g/dL 3.5-5.7 [facility] Alkaline phosphatase [Enzyma tic activity/volume] in Serum or PlasmaOrdered By: Mt Hernandez on 12-27-2023 ALP [Catalytic activity/Vol] 65 U/L Normal 34-104 [facility] Comment on above: Result Comment: PERF ORMED BY: [place] [address] PATHOLOGIST MUSEUM GUIDE HARI BENDER M.D. Performed By: #### C MP, CBC #### [address] Aspartate aminotransferase [ Enzymatic activity/volume] in Serum or PlasmaOrdered By: Mt Hernandez on 12-27-2023 AST [Catalytic activity/Vol] 45 U/L High 13-39 [facility] Comment on above: Performed By: #### C MP, CBC #### [address] Automated basophil %Ordered By: Mt Hernandez on 12-27-2023 Basophils/100 WBC (Bld) 0.8 % Normal . [facility] Comment on above: Performed By: #### C MP, CBC #### [address] Automated basophil countOrde red By: Mt Hernandez on 12-27-2023 Basophils (Bld) [#/Vol] 0.1 10*3/uL Normal 0.0-0.2 [facility] Comment on above: Result Comment: PERF ORMED BY: [place] [address] PATHOLOGIST MUSEUM GUIDE HARI BENDER M.D. Performed By: #### C MP, CBC #### [address] Automated blood monocyte cou ntOrdered By: Mt Hernandez on 12-27-2023 Monocytes (Bld) [#/Vol] 0.8 10*3/uL Normal 0.0-0.8 [facility] Comment on above: Performed By: #### C MP, CBC #### [address] Automated eosinophil %Ordere d By: Mt Hernandez on 12-27-2023 Eosinophils/100 WBC (Bld) 1.9 % Normal . [facility] Comment on above: Performed By: #### C MP, CBC #### [address] Automated eosinophil countOr dered By: Mt Hernandez on 12-27-2023 Eosinophils (Bld) [#/Vol] 0.2 10*3/uL Normal 0.0-0.45 [facility] Comment on above: Performed By: #### C MP, CBC #### [address] Automated monocyte %Ordered By: Mt Hernandez on 12-27-2023 Monocytes/100 WBC (Bld) 7.9 % Normal . [facility] Comment on above: Performed By: #### C MP, CBC #### [address] Automated neutrophil %Ordere d By: Mt Hernandez on 12-27-2023 Neutrophils/100 WBC (Bld) 58.7 % Normal . [facility] Comment on above: Performed By: #### C MP, CBC #### [address] Bilirubin.total [Mass/volume ] in Serum or PlasmaOrdered By: Mt Hernandez on 12-27-2023 Bilirubin [Mass/Vol] 0.4 mg/dL Normal 0.3-1.0 [facility] Comment on above: Performed By: #### C MP, CBC #### [address] Calcium [Mass/volume] in Ser um or PlasmaOrdered By: Mt Hernandez on 12-27-2023 Calcium [Mass/Vol] 10.2 mg/dL Normal 8.6-10.3 [facility] Comment on above: Performed By: #### C MP, CBC #### [address] Carbon dioxide, total [Moles /volume] in Serum or PlasmaOrdered By: Mt Hernandez on 12-27-2023 CO2 [Moles/Vol] 32.2 mmol/L High 21.0-31.0 [facility] Comment on above: Performed By: #### C MP, CBC #### [address] Chloride [Moles/volume] in S isabella or PlasmaOrdered By: Mt Hernandez on 12-27-2023 Chloride [Moles/Vol] 97 mmol/L Low 98-107 [facility] Comment on above: Performed By: #### C MP, CBC #### [address] Complete Blood Count Auto Di ffon 12-27-2023 Mean Corpuscular HGB Conc 33.1 g/dL Normal 32.0-35.0 [facility] Comment on above: Performed By: #### C MP, CBC #### [address] NRBC% 0.2 /100{WBC} Normal 0-0.5 [facility] Comment on above: Performed By: #### C MP, CBC #### [address] Comprehensive Metabolic Pane petr 12-27-2023 Albumin [Mass/Vol] 4.7 g/dL Normal 3.5-5.7 [facility] Comment on above: Performed By: #### C MP, CBC #### [address] GFR/1.73 sq M.predicted MDRD (S/P/Bld) [Vol rate/Area] 49.381 mL/min/{1.73_m2} Normal [facility] Comment on above: Performed By: #### C MP, CBC #### [address] Creatinine [Mass/volume] in Serum or PlasmaOrdered By: Mt Hernandez on 12-27-2023 Creatinine [Mass/Vol] 1.18 mg/dL Normal 0.60-1.20 [facility] Comment on above: Performed By: #### C MP, CBC #### [address] Erythrocyte distribution wid th [Ratio] by Automated countOrdered By: Mt Hernandez on 12-27-2023 Erythrocyte distribution width (RBC) [Ratio] 14.4 % Normal 11.9-15.3 [facility] Comment on above: Performed By: #### C MP, CBC #### [facility] [place] [address] Erythrocytes [#/volume] in B lood by Automated countOrdered By: Mt Hernandez on 12-27-2023 RBC (Bld) [#/Vol] 5.39 10*6/uL High 3.60-5.00 [facility] Comment on above: Performed By: #### C MP, CBC #### [facility] [place] [address] [place] [address] [place] Glucose [Mass/volume] in Ser um or PlasmaOrdered By: Mt Hernandez on 12-27-2023 Glucose [Mass/Vol] 131 mg/dL High 70-100 [facility] Comment on above: ADA recommended refe rence rangeRandom Glucose Reference Range is dependent on time and content of last meal. Glucose of more than 200 mg/dL in a nonstressed, ambulatory subject supports the diagnosis of Diabetes Mellitus. Result Comment: [place] om Glucose Reference Range is dependent on time and content of last meal. Glucose of more than 200 mg/dL in a nonstressed, ambulatory subject supports the diagnosis of Diabetes Mellitus. ADA recommended reference range Performed By: #### C MP, CBC #### [facility] [place] [address] [place] [address] [place] Hematocrit [Volume Fraction] of Blood by Automated countOrdered By: Mt Hernandez on 12-27-2023 Hematocrit (Bld) [Volume fraction] 45.7 % Normal 34.0-46.4 [facility] Comment on above: Performed By: #### C MP, CBC #### [facility] [place] [address] [place] [address] [place] Hemoglobin [Mass/volume] in BloodOrdered By: Mt Hernandez on 12-27-2023 Hemoglobin (Bld) [Mass/Vol] 15.1 g/dL Normal 11.8-15.4 [facility] Comment on above: Performed By: #### C MP, CBC #### [address] Leukocytes [#/volume] correc tarun for nucleated erythrocytes in Blood by Automated counOrdered By: Mt Hernandez on 12-27-2023 WBC corrected for nucl RBC Auto (Bld) [#/Vol] 10.2 10*3/uL 3.8-11.6 [facility] Leukocytes [#/volume] in Blo od by Automated countOrdered By: Mt Hernandez on 12-27-2023 WBC (Bld) [#/Vol] 10.2 10*3/uL Normal 3.8-11.6 [facility] Comment on above: Performed By: #### C MP, CBC #### [address] Lymphocytes [#/volume] in Bl ood by Automated countOrdered By: Mt Hernandez on 12-27-2023 Lymphocytes (Bld) [#/Vol] 3.1 10*3/uL Normal 1.00-4.8 [facility] Comment on above: Performed By: #### C MP, CBC #### [address] Lymphocytes/100 leukocytes i n Blood by Automated countOrdered By: Mt Hernandez on 12-27-2023 Lymphocytes/100 WBC (Bld) 30.7 % Normal . [facility] Comment on above: Performed By: #### C MP, CBC #### [address] MCH [Entitic mass] by Automa tarun countOrdered By: Mt Hernandez on 12-27-2023 MCH (RBC) [Entitic mass] 28.1 pg Normal 24.7-34.3 [facility] Comment on above: Performed By: #### C MP, CBC #### [address] MCHC Auto (RBC) [Mass/Vol]Or dered By: Mt Hernandez on 12-27-2023 MCHC (RBC) [Mass/Vol] 33.1 g/dL 32.0-35.0 [facility] MCV [Entitic volume] by Auto mated countOrdered By: Mt Hernandez on 12-27-2023 MCV (RBC) [Entitic vol] 84.8 fL Normal 80-100 [facility] Comment on above: Performed By: #### C MP, CBC #### [address] Neutrophils [#/volume] in Bl ood by Automated countOrdered By: Mt Hernandez on 12-27-2023 Neutrophils (Bld) [#/Vol] 6.0 10*3/uL Normal 1.8-7.7 [facility] Comment on above: Performed By: #### C MP, CBC #### [facility] [address] [place] [address] No Panel InformationOrdered By: Mt Hernandez on 12-27-2023 Estimated GFR (CKD-EPI) 49.381 mL/Min [facility] Creatinine Clearance (Chem N/A [facility] Nucleated erythrocytes [Pres ence] in Blood by Automated countOrdered By: Mt Hernandez on 12-27-2023 Nucleated RBC Auto Ql (Bld) 0.2 /100{WBC} 0-0.5 [facility] Platelet mean volume [Entiti c volume] in Blood by Automated countOrdered By: Mt Hernandez on 12-27-2023 Platelet mean volume (Bld) [Entitic vol] 7.8 fL Normal 6.3-10.7 [facility] Comment on above: Performed By: #### C MP, CBC #### [facility] [address] [place] [address] Platelets [#/volume] in Bloo d by Automated countOrdered By: Mt Hernandez on 12-27-2023 Platelets (Bld) [#/Vol] 262 10*3/uL Normal 150-450 [facility] Comment on above: Performed By: #### C MP, CBC #### [address] Potassium [Moles/volume] in Serum or PlasmaOrdered By: Mt Hernandez on 12-27-2023 Potassium [Moles/Vol] 4.2 mmol/L Normal 3.5-5.1 [facility] Comment on above: Performed By: #### C MP, CBC #### [facility] [address] [place] [address] Protein [Mass/volume] in Ser um or PlasmaOrdered By: Mt Hernandez on 12-27-2023 Protein [Mass/Vol] 7.3 g/dL Normal 6.4-8.9 [facility] Comment on above: Performed By: #### C MP, CBC #### [address] Serum globulin measurement b y calculation (mass/volume)Ordered By: Mt Hernandez on 12-27-2023 Globulin (S) [Mass/Vol] 2.6 g/dL [facility] Comment on above: Performed By: #### C MP, CBC #### [address] Serum or plasma albumin/glob ulin mass ratioOrdered By: Mt Hernandez on 12-27-2023 Albumin/Globulin [Mass ratio] 1.8 {ratio} [facility] Comment on above: Performed By: #### C MP, CBC #### [address] Serum or plasma anion gap de terminationOrdered By: Mt Hernandez on 12-27-2023 Anion gap [Moles/Vol] 13.0 mmol/L Normal 6.0-15.0 [facility] Comment on above: Performed By: #### C MP, CBC #### [place] [address] [place] Sodium [Moles/volume] in Ser um or PlasmaOrdered By: Mt Hernandez on 12-27-2023 Sodium [Moles/Vol] 138 mmol/L Normal 136-145 [facility] Comment on above: Performed By: #### C MP, CBC #### [address] Urea nitrogen [Mass/volume] in Serum or PlasmaOrdered By: Mt Hernandez on 12-27-2023 Urea nitrogen [Mass/Vol] 22 mg/dL Normal 7-25 [facility] Comment on above: Performed By: #### C MP, CBC #### [address] CNOVon 11-12-2023 CNOV Office Visit (OTOLST ) -- VIVIAN DURAN ([id number]) 1950 F Date Time Provider Department 11/12/23 [...] kidney disease) stage 3, GFR 30-59 ml/min ([facility]) DM type 2 (diabetes mellitus, type 2) ([facility]) HTN (hypertension) Hypothyroidism Mixed hyperlipidemia Overactive bladder [...] of lesions. TMs clear and mobile. Neurologic: strategic marketing manager II-XII grossly intact. Assessment/Plan: Reassured no apparent oral lesion. 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 F/up prn. Medical Decision Making: Problems: Low: Acute, uncomplicated illness or injury Risk: Minimal: Minimal risk from testing/treatment Medical Decision Making Level: 2 - Straightforward Referring Provider: ELICIA CROSS [[id number]] Allergies As of Date: 11/12/2023 (No Known Allergies) Date Reviewed: 11/12/2023 Reviewed by: Azalia Antonio MA - Fully Assessed Reason for Visit: Consult [173] Visit Diagnosis:Oral lesion [K13.70] Order(s):CONSULT TO ENT [9008] Order #: [id number]: 1 Prescriptions as of 11/12/2023 - furosemide [...] ORAL Take by mouth as directed. - yerpuosne-V2-alQ14-algal oil (METANX, ALGAL OIL,) 3 mg-35 mg-2 [...] Encounter Status:Closed by JENNI SERRANO on 11/12/23 Normal [facility] MIGNONNon 10-10-2023 CNPN Telephone (OTOLCC) -- VIVIAN DURAN ([id number]) 1950 F Date Time Provider Department 10/10/23 ELICIA CROSS OTOLCC During your visit today, we recorded the following information about you: Pamela Lange 10/10/2023 4:01 PM Signed Devoted is calling Elicia Cross APRN.POWDERMAN today to as pt went to dentist [...] calling: self Call patient at: at home [phone] (home) [phone] (cell) Was an appointment scheduled: No Closing statement: Results or non-symptom based questions: Thank you for calling [facility], your call will be returned within the next business day. Elicia Ramirez APRN.CNP 10/11/2023 4:37 PM Signed Please call patient. Please let her know that I would highly recommend that she see one of our ENT svp business development physicians. They would be able to discuss with her a biopsy either in the office or the operating room if indicated. Please assist with an appointment for Dr. Rodriguez, Dr. Pope, Dr. Serrano, Dr. Duncan, or Dr. Chowdhury at the patient's earliest convenience. Please let her know that the closest location that we would be able to provide this service would be [place]. Otherwise, we have providers in [facility], or several locations on the [place] or in [place] that would be able to help her with this biopsy. Not appropriate for her to see PA or SPAR MACHINE OPERATOR must be scheduled with MD only. Thank you, Elicia Cross CNP Brian Marreroa 10/11/2023 7:46 PM Signed Patient returned call to Leann regarding the message Leann left. Patient states to call again at [phone]. Patient will accept any open slot. Allergies As of Date: 10/10/2023 (No Known Allergies) Date Reviewed: 08/10/2023 Reviewed by: Elicia Cross APRN.MIGNON - Fully Assessed Reason for Visit: Appointment [186] Primary Visit Diagnosis:Oral lesion [K13.70] Order(s):CONSULT TO ENT [9008] Order #: [id number]: 1 FUTURE Prescriptions as of 03/06/2024 - [...] ORAL Take by mouth as directed. - kaenhzvns-I1-ibZ65-algal oil (METANX, ALGAL OIL,) 3 mg-35 mg-2 [...] Status:Closed by PAMELA LANGE on 03/06/24 Normal [facility] BI MAMMOGRAM SCREENING TOMOS YNTHESIS BILATERALon 10-09-2023 [...] IS VERY IMPORTANT TO YOUR HEALTH. THE [employer] GUIDELINES RECOMMEND THAT WOMEN 40 [...] NOMS. Us or spot compression prn. Prefers [place] location. CNOVon 08-10-2023 CNOV Office Visit (OTOLCC ) -- VIVIAN DURAN ([id number]) 1950 F Date Time Provider Department 08/10/23 8:50 AM ELICIA CROSS OTOL During your visit today, we recorded the following information about you: Pulse Respiration 85/minute 17/minute Elicia Cross, SLIVER MACHINE OPERATOR.POWDERMAN 08/10/2023 1:06 PM Signed Ms. Duran is [...] evaluation of middle ear function. CPT code: 37012 RIGHT EAR: Normal ME pressure and TM compliance (mobility). LEFT EAR: Normal ME pressure and TM compliance (mobility). PURE TONE AUDIOMETRY AND SPEECH TESTING Description of procedure: This test is an objective evaluation hearing sensitivity via air and bone conduction and speech recognition testing. CPT code:32496 RIGHT EAR: Hearing Sensitivity: Hearing sensitivity within [...] kidney disease) stage 3, GFR 30-59 ml/min ([facility]) DM type 2 (diabetes mellitus, type 2) ([facility]) HTN (hypertension) Hypothyroidism Mixed hyperlipidemia Overactive bladder [...] BIOTIN, ORAL Take by mouth as directed. uwipfxcdr-F7-lqO54-algal oil (METANX, ALGAL OIL,) 3 mg-35 mg-2 [...] for lichen (more content not included)... Normal [facility] Office Visit (OTAUCC ) -- VIVIAN DURAN ([id number]) 1950 F Date Time Provider Department 08/10/23 8:00 AM [facility] During your visit today, we recorded the following information about you: Ester Blanca AuD, [facility] 08/10/2023 10:00 AM Signed [facility] [place] AUDIOLOGIC EVALUATION REPORT Name: Vivian Duran CC#: [id number] Date of Service: 08/10/2023 Date of : 1950 Age: [age] year old Referred by: Elicia Cross [address] [place] [address] [place] [address] Referred for: Evaluation of the cause of disorder of hearing, tinnitus, or balance. Referral documented: In an order in [facility] Patient's major complaints: Hearing Loss/Hearing Problem. Vivian reported she has some trouble hearing/understanding speech and some trouble hearing the dialogue when watching TV unless the volume is louder. Her notices this problem. Patient denies tinnitus. Vivian Duran was seen for an initial audiologic evaluation. See [facility] Audiogram for additional reported history and symptoms. [...] evaluation of middle ear function. CPT code: 81320 RIGHT EAR: Normal ME pressure and TM compliance (mobility). LEFT EAR: Normal ME pressure and TM compliance (mobility). PURE TONE AUDIOMETRY AND SPEECH TESTING Description of procedure: This test is an objective evaluation hearing sensitivity via air and bone conduction and speech recognition testing. CPT code:56684 RIGHT EAR: Hearing Sensitivity: Hearing sensitivity within [...] 1. ENT consult today with Elicia Cross APRN.POWDERMAN. 2. Recheck as needed. 3. Hearing conservation. Tania Vasquez, PUNEET/A Clinical Junior Art Director VILLANUEVA Abbrev- iation Definition Degree of hearing sensitivity dB range WNL within normal limits WNL 0 - 20 SNHL sensorineural hearing loss Mild 20-40 CHL conductive hearing loss Moderate 40-55 MHL mixed hearing loss Moderately-Severe 55-70 WRS word recognition score Severe 70-90 ME middle ear Profound 90 + TM tympanic membrane Referring Provider: ELICIA CROSS [[id number]] Allergies As of Date: 08/10/2023 (No Known Allergies) Date Reviewed: 08/10/2023 Reviewed by: Elicia Cross APRN.POWDERMAN - Fully Assessed Primary Visit Diagnosis:Other specified hearing loss, unspecified ear [H91.8X9] Other Visit Diagnosis:Type 2 diabetes mellitus with stage 3a chronic kidney disease, without long-term current use of insulin (HCC) [E11.22, N18.31] Order(s):HEARING TEST/AUDIOGRAM [3714563] Order #: [id number]: 1 Prescriptions as of 08/10/2023 - furosemide [...] mouth as (more content not included)... Normal [facility] PTH INTACTon 02-13-2023 PTH, Intact 27 pg/mL Normal 15-65 [facility] Comment on above: Performed By: #### S MOOTHM #### [facility] [address] [address] [address] Deloris Nolan HEMOGRAM AND PLATELon 2022 Hematocrit (Bld) [Volume fraction] 41.9 % Normal 36.0-48.0 [facility] Comment on above: Performed By: #### S MOOTHM #### [facility] [address] [address] [address] Deloris Nolan Hemoglobin (Bld) [Mass/Vol] 12.9 g/dL Normal 12.0-16.0 [facility] Comment on above: Performed By: #### S MOOTHM #### [facility] [address] [address] [address] Deloris Nolan MCH (RBC) [Entitic mass] 25.9 pg Critically low 26.7-34.0 [facility] Comment on above: Performed By: #### S MOOTHM #### [facility] [address] [address] [address] Deloris Nolan MCHC (RBC) [Mass/Vol] 30.8 g/dL Normal 29.9-35.2 [facility] Comment on above: Performed By: #### S MOOTHM #### [facility] [address] [address] [address] Deloris Nolan MCV (RBC) [Entitic vol] 84.1 fL Normal 81.0-99.0 [facility] Comment on above: Performed By: #### S MOOTHM #### [facility] [address] [place] [address] Dr. Deloris Nolan PLT 212 103/ul Normal 150-450 [facility] Comment on above: Performed By: #### S MOOTHM #### [facility] [address] [place] [address] Dr. Deloris Nolan RBC 4.98 106/ul Normal 4.20-5.40 [facility] Comment on above: Performed By: #### S MOOTHM #### [facility] [address] [place] [address] Dr. Deloris Nolan WBC 7.4 103/ul Normal 4.0-11.0 [facility] Comment on above: Performed By: #### S MOOTHM #### [facility] [address] [place] [address] Dr. Deloris Nolan RENAL FUNCTION PANELon 02-12 Albumin [Mass/Vol] 3.6 g/dL Normal 3.4-5.0 [facility] Comment on above: Performed By: #### A LPHA-1 #### [facility] [address] [place] [address] Dr. Deloris Nolan Calcium [Mass/Vol] 9.3 mg/dL Normal 8.5-10.1 [facility] Comment on above: Performed By: #### A LPHA-1 #### [facility] [address] [place] [address] Dr. Deloris Nolan Chloride [Moles/Vol] 104 mmol/L Normal 98-107 [facility] Comment on above: Performed By: #### A LPHA-1 #### [facility] [address] [place] [address] Dr. Deloris Nolan CO2 [Moles/Vol] 28.3 mmol/L Normal 21.0-32.0 [facility] Comment on above: Performed By: #### A LPHA-1 #### [facility] [address] [place] [address] Dr. Deloris Nolan Creatinine [Mass/Vol] 1.00 mg/dL Normal 0.55-1.02 [facility] Comment on above: Performed By: #### A LPHA-1 #### [facility] [address] [place] [address] Dr. Deloris Nolan EGFR-AF ANDORRAN >60 Normal >=60 [facility] Comment on above: Performed By: #### A LPHA-1 #### [facility] [address] [place] [address] Dr. Deloris Nolan EGFR-NON AF ANDORRAN 55 mL/min/1.73m2 Critically low >=60 [facility] Comment on above: Performed By: #### A LPHA-1 #### [facility] [address] [place] [address] Dr. Deloris Nolan Glucose [Mass/Vol] 155 mg/dL Critically high 74-106 [facility] Comment on above: Performed By: #### A LPHA-1 #### [facility] [address] [place] [address] Dr. Deloris Nolan Phosphate [Mass/Vol] 3.8 mg/dL Normal 2.6-4.7 [facility] Comment on above: Performed By: #### A LPHA-1 #### [facility] [address] [place] [address] Dr. Deloris Nolan Potassium [Moles/Vol] 4.4 mmol/L Normal 3.5-5.1 [facility] Comment on above: Performed By: #### A LPHA-1 #### [facility] [address] [place] [address] Dr. Deloris Nolan Sodium [Moles/Vol] 140 mmol/L Normal 136-145 [facility] Comment on above: Performed By: #### A LPHA-1 #### [facility] [address] [place] [address] Dr. Deloris Nolan Urea nitrogen [Mass/Vol] 21.0 mg/dL Critically high 7.0-18.0 [facility] Comment on above: Performed By: #### A LPHA-1 #### [facility] [address] [place] [address] Dr. Deloris Nolan UA RANDOM W/MICROSCOPICon BACTERIA NONE SEEN Normal NONE SEEN [facility] Comment on above: Performed By: #### U AMIC #### [facility] [address] [place] [address] Dr. Deloris Nolan Bilirubin Ql (U) Negative Normal NEGATIVE [facility] Comment on above: Performed By: #### U AMIC #### [facility] [address] [place] [address] Dr. Deloris Nolan CAST NONE SEEN Normal NONE SEEN [facility] Comment on above: Performed By: #### U AMIC #### [facility] [address] [place] [address] Dr. Deloris Nolan Clarity (U) CLEAR Normal CLEAR [facility] Comment on above: Performed By: #### U AMIC #### [facility] [address] [place] [address] Dr. Deloris Nolan Color (U) LT. YELLOW Normal YELLOW [facility] Comment on above: Performed By: #### U AMIC #### [facility] [address] [place] [address] Dr. Deloris Nolan Crystals LM Nom (Urine sed) NONE SEEN Normal NONE SEEN [facility] Comment on above: Performed By: #### U AMIC #### [facility] [address] [place] [address] Dr. Deloris Nolan Epithelial cells LM Ql (Urine sed) FEW Abnormal NONE SEEN /RARE [facility] Comment on above: Result Comment: Prev iously reported as: NONE SEEN On 02/12/2023 10:35 By EM6 Performed By: #### U AMIC #### [facility] [address] [address] [address] Deloris Nolan Glucose Ql (U) >1000 Abnormal NEGATIVE [facility] Comment on above: Performed By: #### U AMIC #### [facility] [address] [address] [address] Deloris Nolan Hemoglobin Ql (U) SMALL Abnormal NEGATIVE [facility] Comment on above: Performed By: #### U AMIC #### [facility] [address] [address] [address] Deloris Nolan Ketones Ql (U) Negative Normal NEGATIVE [facility] Comment on above: Performed By: #### U AMIC #### [facility] [address] [address] [address] Deloris Nolan LEUKOCYTES Negative Normal NEGATIVE [facility] Comment on above: Performed By: #### U AMIC #### [facility] [address] [address] [address] Deloris Nolan MUCOUS NONE SEEN Normal NONE SEEN [facility] Comment on above: Performed By: #### U AMIC #### [facility] [address] [address] [address] Delorsi Nolan Nitrite Ql (U) Negative Normal NEGATIVE [facility] Comment on above: Performed By: #### U AMIC #### [facility] [address] [address] [address] Deloris Nolan pH (U) 6.5 [pH] Normal 5-9 [facility] Comment on above: Performed By: #### U AMIC #### [facility] [address] [address] [address] Deloris Nolan RBC 5-10 Abnormal 0-2 [facility] Comment on above: Result Comment: Prev iously reported as: NONE SEEN On 02/12/2023 10:35 By EM6 Performed By: #### U AMIC #### [facility] [address] [place] [address] Dr. Deloris Nolan SPEC GRAVITY 1.015 Normal 1.005-<=1. 025 [facility] Comment on above: Performed By: #### U AMIC #### [facility] [address] [address] [address] Deloris Nolan UA PROTEIN Negative Normal NEGATIVE/ TRACE [facility] Comment on above: Performed By: #### U AMIC #### [facility] [address] [address] [address] Deloris Nolan Urobilinogen Qn (U) 0.2 {Juan Diego'U}/dL Normal 0.2 - 1. 0 [facility] Comment on above: Performed By: #### U AMIC #### [facility] [address] [address] [address] Deloris Nolan WBC NONE SEEN Normal NONE SEEN [facility] Comment on above: Performed By: #### U AMIC #### [facility] [address] [place] [address] Dr. Deloris Nolan URIC ACID SERUMon 02-12-2023 Urate [Mass/Vol] 6.1 mg/dL Critically high 2.6-6.0 [facility] Comment on above: Performed By: #### A LPHA-1 #### [facility] [address] [address] [address] Deloris Nolan URINE T PROTEIN CREAT RATIOo n 02-12-2023 Protein (U) [Mass/Vol] 8.7 mg/dL Normal <=12.0 [facility] Comment on above: Performed By: #### S MOOTHM #### [facility] [address] [place] [address] Dr. Deloris Nolan UR PROT CREAT RAT 0.[address] [facility] Comment on above: Performed By: #### S MOOTHM #### [facility] [address] [place] [address] Dr. Deloris Nolan URINE CREAT 84.26 mg/dL Normal 20.00-300. 00 [facility] Comment on above: Performed By: #### S MOOTHM #### [facility] [address] [place] [address] Dr. Deloris Nolan VITAMIN D 25 OHon 02-12-2023 VIT D 25-OH 41.6 ng/mL Normal [facility] Comment on above: Performed By: #### V ITAD #### [facility] [id number] Deloris Nolan VIT D RANGES SEE BELOW Normal [facility] Comment on above: Result Comment: <20 ng/mL Vit D deficient 20 - <30 ng/mL Vit D insufficient 30 - 100 ng/mL Vit D sufficient >100 ng/mL Potential Toxicity Performed By: #### V ITAD #### [facility] [address] [place], [place] [address] Dr. Deloris Nolan XR Chest 2 Views*on [...] by Estrada Cummins on 11/13/2022 1510 Normal [facility] SCREENING MAMMOGRAM W/LAKESHA, BILATERAL*on 10-04-2022 SCREENING MAMMOGRAM [...] VERY IMPORTANT TO YOUR HEALTH. THE CURRENT [employer] GUIDELINES RECOMMENDS ANNUAL MAMMOGRAPHY BEGINNING AT AGE 42 THIS FACILITY USES A REMINDER SYSTEM TO ENSURE ALL PATIENTS RECEIVE REMINDER NOTIFICATIONS AT THE APPROPRIATE TIME BASED ON THE RECOMMENDATIONS OF THIS EXAM. Report reported and signed by Ravi Naranjo on 10/04/2022 1544 Normal [facility] [id number] 2021 [id number], Serum 144 mg/dL Normal 101-187 [facility] Comment on above: Performed By: #### A LPHA-1 #### [facility] [address] [place] [address] Dr. Deloris Nolan GREG EIA W/REFLEX 9 BIOMARKER Son 08-30-2022 GREG Direct Negative Normal Negative [facility] Comment on above: Performed By: #### A NARF9 #### [facility] [address] [place] [address] Dr. Deloris Nolan CERULOPLASMINon 08-30-2022 Ceruloplasmin 20.6 mg/dL Normal 19.0-39.0 [facility] Comment on above: Performed By: #### S MOOTHM #### [facility] [address] [place] [address] Dr. Deloris Nolan SMOOTH MUSCLE ANTIBODYon Actin (Smooth Muscle) Antibody 7 Units Normal 0-19 [facility] Comment on above: Result Comment: Nega tive 0 - 19 Weak positive 20 - 30 Moderate to strong positive >30 . Actin Antibodies are found in 52-85% of patients with autoimmune hepatitis or chronic active hepatitis and in 22% of patients with primary biliary cirrhosis. Performed By: #### S MOOTHM #### [facility] [address] [place] [address] Dr. Deloris Nolan CBC AUTO DIFFon 2022 BASO # 0.0 103/ul Normal 0.0-0.1 [facility] Comment on above: Performed By: #### S MOOTHM #### [facility] [address] [place] [address] Dr. Deloris Nolan Basophils/100 WBC (Bld) 0.5 % Normal 0.2-2.0 [facility] Comment on above: Performed By: #### S MOOTHM #### [facility] [address] [place] [address] Dr. Deloris Nolan EO # 0.3 103/ul Normal 0.0-0.7 [facility] Comment on above: Performed By: #### S MOOTHM #### [facility] [address] [place] [address] Dr. Deloris Nolan Eosinophils/100 WBC (Bld) 3.2 % Normal 0.9-7.0 [facility] Comment on above: Performed By: #### S MOOTHM #### [facility] [address] [place] [address] Dr. Deloris Nolan Erythrocyte distribution width (RBC) [Ratio] 13.6 % Normal 11.0-15.0 [facility] Comment on above: Performed By: #### S MOOTHM #### [facility] [address] [place] [address] Dr. Deloris Nolan Hematocrit (Bld) [Volume fraction] 40.6 % Normal 36.0-48.0 [facility] Comment on above: Performed By: #### S BIBOTHM #### [facility] [address] [place] [address] Dr. Deloris Nolan Hemoglobin (Bld) [Mass/Vol] 13.6 g/dL Normal 12.0-16.0 [facility] Comment on above: Performed By: #### S BIBOTHM #### [facility] [address] [place] [address] Dr. Deloris Nolan IG # 0.03 10e3/ul Normal 0.00-0.03 [facility] Comment on above: Performed By: #### S BIBOTHM #### [facility] [address] [place] [address] Dr. Deloris Nolan IG % 0.4 % Normal 0.0-0.5 [facility] Comment on above: Performed By: #### S BIBOTHM #### [facility] [address] [place] [address] Dr. Deloris Nolan LYMPH # 2.4 103/ul Normal 1.2-3.8 [facility] Comment on above: Performed By: #### S MOOTHM #### [facility] [address] [place] [address] Dr. Deloris Nolan Lymphocytes/100 WBC (Bld) 31.6 % Normal 20.5-60.0 [facility] Comment on above: Performed By: #### S MOOTHM #### [facility] [address] [place] [address] Dr. Deloris Nolan MANUAL DIFF REQ NO Normal [facility] Comment on above: Performed By: #### S MOOTHM #### [facility] [address] [place] [address] Dr. Deloris Nolan MCH (RBC) [Entitic mass] 29.3 pg Normal 26.7-34.0 [facility] Comment on above: Performed By: #### S MOOTHM #### [facility] [address] [place] [address] Dr. Deloris Nolan MCHC (RBC) [Mass/Vol] 33.5 g/dL Normal 29.9-35.2 [facility] Comment on above: Performed By: #### S MOOTHM #### [facility] [address] [place] [address] Dr. Deloris Nolan MCV (RBC) [Entitic vol] 87.5 fL Normal 81.0-99.0 [facility] Comment on above: Performed By: #### S MOOTHM #### [facility] [address] [place] [address] Dr. Deloris Nolan MONO # 0.6 103/ul Normal 0.3-0.8 [facility] Comment on above: Performed By: #### S MOOTHM #### [facility] [address] [place] [address] Dr. Deloris Nolan Monocytes/100 WBC (Bld) 7.9 % Normal 1.7-12.0 [facility] Comment on above: Performed By: #### S MOOTHM #### [facility] [address] [place] [address] Dr. Deloris Nolan NEUT # 4.3 103/ul Normal 1.4-6.5 [facility] Comment on above: Performed By: #### S MOOTHM #### [facility] [address] [place] [address] Dr. Deloris Nolan Neutrophils/100 WBC (Bld) 56.4 % Normal 43.0-75.0 [facility] Comment on above: Performed By: #### S MOOTHM #### [facility] [address] [place] [address] Dr. Deloris Nolan Platelet mean volume (Bld) [Entitic vol] 9.0 fL Critically low 9.5-13.5 [facility] Comment on above: Performed By: #### Alexandra EDWARDM #### [facility] [address] [place] [address] Dr. Deloris Nolan PLT 201 103/ul Normal 150-450 [facility] Comment on above: Performed By: #### Alexandra ESPINAL #### [facility] [address] [address] [address] Deloris Nolan RBC 4.64 106/ul Normal 4.20-5.40 [facility] Comment on above: Performed By: #### S WAGNERM #### [facility] [address] [place] [address] Dr. Deloris Nolan WBC 7.7 103/ul Normal 4.0-11.0 [facility] Comment on above: Performed By: #### Alexandra ESPINAL #### [facility] [address] [place] [address] Dr. Deloris Nolan FERRITINon 2022 Ferritin [Mass/Vol] 102.0 ng/mL Normal 8.0-252.0 [facility] Comment on above: Performed By: #### Alexandra ESPINAL #### [facility] [address] [place] [address] Dr. Deloris Nolan IRON AND TIBCon 2022 % SATURATION 17.1 % Normal [facility] Comment on above: Performed By: #### Alexandra EDWARDM #### [facility] [address] [place] [address] Dr. Deloris Nolan Iron [Mass/Vol] 68.0 ug/dL Normal 50.0-170.0 [facility] Comment on above: Performed By: #### S WAGNERM #### [facility] [address] [place] [address] Dr. Deloris Nolan TIBC DIRECT 398.0 ug/dL Normal 250.0-450. 0 [facility] Comment on above: Performed By: #### Alexandra ESPINAL #### [facility] [address] [address] [address] Deloris Nolan LIVER PROFILEon 2022 Albumin [Mass/Vol] 3.8 g/dL Normal 3.4-5.0 [facility] Comment on above: Performed By: #### S BIBOTHM #### [facility] [address] [address] [address] Deloris Nolan Albumin/Globulin [Mass ratio] 0.9 {ratio} Normal [facility] Comment on above: Performed By: #### S WAGNERM #### [facility] [address] [address] [address] Deloris Nolan ALP [Catalytic activity/Vol] 71 U/L Normal 46-116 [facility] Comment on above: Performed By: #### S WAGNERM #### [facility] [address] [place] [address] Dr. Deloris Nolan ALT [Catalytic activity/Vol] 109 U/L Critically high 14-59 [facility] Comment on above: Performed By: #### S WAGNERM #### [facility] [address] [place] [address] Dr. Deloris Nolan AST [Catalytic activity/Vol] 87 U/L Critically high 15-37 [facility] Comment on above: Performed By: #### S WAGNERM #### [facility] [address] [place] [address] Dr. Deloris Nolan BILI, CONJUGATED 0.1 mg/dL Normal 0.0-0.2 [facility] Comment on above: Performed By: #### S WAGNERM #### [facility] [address] [place] [address] Dr. Deloris Nolan Bilirubin [Mass/Vol] 0.3 mg/dL Normal 0.2-1.0 [facility] Comment on above: Performed By: #### S BIBOTHM #### [facility] [address] [place] [address] Dr. Deloris Nolan Globulin (S) [Mass/Vol] 4.0 g/dL Normal [facility] Comment on above: Performed By: #### S BIBOTHM #### [facility] [address] [place] [address] Dr. Deloris Nolan Protein [Mass/Vol] 7.8 g/dL Normal 6.4-8.2 [facility] Comment on above: Performed By: #### S WAGNERM #### [facility] [address] [place] [address] Dr. Deloris Nolan PROTIMEon 2022 INR Coag (PPP) [Relative time] 1.06 {INR} Normal [facility] Comment on above: Performed By: #### S WAGNERM #### [facility] [address] [place] [address] Dr. Deloris Nolan INR GUIDELINES SEE BELOW Normal [facility] Comment on above: Result Comment: NILDA RED INR: 2.0 - 3.0 CONDITIONS NOT LISTED BELOW 2.5 - 3.5 FOR PROSTHETIC HEART VALVE REPLACEMENT 2.5 - 3.5 RECURRENT THROMBOSIS Performed By: #### S WAGNERM #### [facility] [address] [place] [address] Dr. Deloris Nolan PT Coag (PPP) [Time] 11.4 s Normal 9.0-11.6 [facility] Comment on above: Performed By: #### S WAGNERM #### [facility] [address] [place] [address] Dr. Deloris Nolan HEMOGRAM AND PLATELon 2021 Hematocrit (Bld) [Volume fraction] 42.9 % Normal 36.0-48.0 [facility] Comment on above: Performed By: #### H H #### [facility] [address] [place] [address] Dr. Deloris Nolan Hemoglobin (Bld) [Mass/Vol] 14.0 g/dL Normal 12.0-16.0 [facility] Comment on above: Performed By: #### H H #### [facility] [address] [place] [address] Dr. Deloris Nolan MCH (RBC) [Entitic mass] 29.1 pg Normal 26.7-34.0 [facility] Comment on above: Performed By: #### H H #### [facility] [address] [place] [address] Dr. Deloris Nolan MCHC (RBC) [Mass/Vol] 32.6 g/dL Normal 29.9-35.2 [facility] Comment on above: Performed By: #### H H #### [facility] [address] [place] [address] Dr. Deloris Nolan MCV (RBC) [Entitic vol] 89.2 fL Normal 81.0-99.0 [facility] Comment on above: Performed By: #### H H #### [facility] [address] [place] [address] Dr. Deloris Nolan PLT 237 103/ul Normal 150-450 [facility] Comment on above: Performed By: #### H H #### [facility] [address] [place] [address] Dr. Deloris Nolan RBC 4.81 106/ul Normal 4.20-5.40 [facility] Comment on above: Performed By: #### H H #### [facility] [address] [place] [address] Dr. Deloris Nolan WBC 8.2 103/ul Normal 4.0-11.0 [facility] Comment on above: Performed By: #### H H #### [facility] [address] [place] [address] Dr. Deloris Nolan MAGNESIUMon 08-08-2022 Magnesium [Mass/Vol] 2.0 mg/dL Normal 1.8-2.4 [facility] Comment on above: Performed By: #### M G, URIC, RENAL #### [facility] [address] [place] [address] Dr. Deloris Nolan RENAL FUNCTION PANELon 08-08 Albumin [Mass/Vol] 3.7 g/dL Normal 3.4-5.0 [facility] Comment on above: Performed By: #### M Giovanny, URIC, RENAL #### [facility] [address] [place] [address] Dr. Deloris Nolan Calcium [Mass/Vol] 9.0 mg/dL Normal 8.5-10.1 [facility] Comment on above: Performed By: #### M G, URIC, RENAL #### [facility] [address] [address] [address] Deloris Nolan Chloride [Moles/Vol] 100 mmol/L Normal 98-107 [facility] Comment on above: Performed By: #### M G, URIC, RENAL #### [facility] [address] [address] [address] Deloris Nolan CO2 [Moles/Vol] 30.6 mmol/L Normal 21.0-32.0 [facility] Comment on above: Performed By: #### M G, URIC, RENAL #### [facility] [address] [address] [address] Deloris Nolan Creatinine [Mass/Vol] 0.94 mg/dL Normal 0.55-1.02 [facility] Comment on above: Performed By: #### M G, URIC, RENAL #### [facility] [address] [address] [address] Deloris Nolan EGFR-AF ANDORRAN >60 Normal >=60 [facility] Comment on above: Performed By: #### M G, URIC, RENAL #### [facility] [address] [address] [address] Deloris Nolan EGFR-NON AF ANDORRAN 59 mL/min/1.73m2 Critically low >=60 [facility] Comment on above: Performed By: #### M G, URIC, RENAL #### [facility] [address] [address] [address] Deloris Nolan Glucose [Mass/Vol] 161 mg/dL Critically high 74-106 [facility] Comment on above: Performed By: #### M G, URIC, RENAL #### [facility] [address] [address] [address] Deloris Nolan Phosphate [Mass/Vol] 3.3 mg/dL Normal 2.6-4.7 [facility] Comment on above: Performed By: #### M G, URIC, RENAL #### [facility] [address] [address] [address] Deloris Nolan Potassium [Moles/Vol] 4.3 mmol/L Normal 3.5-5.1 [facility] Comment on above: Performed By: #### M G, URIC, RENAL #### [facility] [address] [place] [address] Dr. Deloris Nolan Sodium [Moles/Vol] 136 mmol/L Normal 136-145 [facility] Comment on above: Performed By: #### M G, URIC, RENAL #### [facility] [address] [place] [address] Dr. Deloris Nolan Urea nitrogen [Mass/Vol] 15.0 mg/dL Normal 7.0-18.0 [facility] Comment on above: Performed By: #### M G, URIC, RENAL #### [facility] [address] [place] [address] Dr. Deloris Nolan UA RANDOM W/MICROSCOPICon BACTERIA SMALL Abnormal NONE SEEN [facility] Comment on above: Performed By: #### S MOOTHM #### [facility] [address] [place] [address] Dr. Deloris Nolan Bilirubin Ql (U) Negative Normal NEGATIVE [facility] Comment on above: Performed By: #### S MOOTHM #### [facility] [address] [place] [address] Dr. Deloris Nolan CAST NONE SEEN Normal NONE SEEN [facility] Comment on above: Performed By: #### S MOOTHM #### [facility] [address] [place] [address] Dr. Deloris Nolan Clarity (U) CLEAR Normal CLEAR [facility] Comment on above: Performed By: #### S MOOTHM #### [facility] [address] [place] [address] Dr. Deloris Nolan Color (U) LT. YELLOW Normal YELLOW [facility] Comment on above: Performed By: #### S MOOTHM #### [facility] [address] [place] [address] Dr. Deloris Nolan Crystals LM Nom (Urine sed) NONE SEEN Normal NONE SEEN [facility] Comment on above: Performed By: #### S MOOTHM #### [facility] [address] [place] [address] Dr. Deloris Nolan Epithelial cells LM Ql (Urine sed) FEW Abnormal NONE SEEN /RARE [facility] Comment on above: Performed By: #### S MOOTHM #### [facility] [address] [address] [address] Deloris Nolan Glucose Ql (U) Negative Normal NEGATIVE [facility] Comment on above: Performed By: #### S MOOTHM #### [facility] [address] [address] [address] Deloris Nolan Hemoglobin Ql (U) Negative Normal NEGATIVE [facility] Comment on above: Performed By: #### S MOOTHM #### [facility] [address] [address] [address] Deloris Nolan Ketones Ql (U) Negative Normal NEGATIVE [facility] Comment on above: Performed By: #### S MOOTHM #### [facility] [address] [place] [address] Dr. Deloris Nolan LEUKOCYTES SMALL Abnormal NEGATIVE [facility] Comment on above: Performed By: #### S MOOTHM #### [facility] [address] [place] [address] Dr. Deloris Nolan MUCOUS NONE SEEN Normal NONE SEEN [facility] Comment on above: Performed By: #### S MOOTHM #### [facility] [address] [place] [address] Dr. Deloris Nolan Nitrite Ql (U) Negative Normal NEGATIVE [facility] Comment on above: Performed By: #### S MOOTHM #### [facility] [address] [place] [address] Dr. Deloris Nolan pH (U) 6.0 [pH] Normal 5-9 [facility] Comment on above: Performed By: #### S MOOTHM #### [facility] [address] [place] [address] Dr. Deloris Nolan RBC NONE SEEN Abnormal 0-2 [facility] Comment on above: Performed By: #### S MOOTHM #### [facility] [address] [place] [address] Dr. Deloris Nolan SPEC GRAVITY 1.015 Normal 1.005-<=1. 025 [facility] Comment on above: Performed By: #### S MOOTHM #### [facility] [address] [place] [address] Dr. Deloris Nolan UA PROTEIN Negative Normal NEGATIVE/ TRACE [facility] Comment on above: Performed By: #### S MOOTHM #### [facility] [address] [place] [address] Dr. Deloris Nolan Urobilinogen Qn (U) 0.2 {Juan Diego'U}/dL Normal 0.2 - 1. 0 [facility] Comment on above: Performed By: #### S MOOTHM #### [facility] [address] [place] [address] Dr. Deloris Nolan WBC 2-5 Abnormal NONE SEEN [facility] Comment on above: Performed By: #### S MOOTHM #### [facility] [address] [place] [address] Dr. Deloris Nolan URIC ACID SERUMon 08-08-2022 Urate [Mass/Vol] 7.7 mg/dL Critically high 2.6-6.0 [facility] Comment on above: Performed By: #### M G, URIC, RENAL #### [facility] [address] [place] [address] Dr. Deloris Nolan URINE T PROTEIN CREAT RATIOo n 08-08-2022 Protein (U) [Mass/Vol] 12.2 mg/dL Critically high <=12.0 [facility] Comment on above: Performed By: #### U RTPCR #### [facility] [address] [place] [address] Dr. Deolris Nolan UR PROT CREAT RAT 0.10 Normal [facility] Comment on above: Performed By: #### U RTPCR #### [facility] [address] [place] [address] Dr. Deloris Nolan URINE CREAT 123.93 mg/dL Normal 20.00-300. 00 [facility] Comment on above: Performed By: #### U RTPCR #### [facility] [address] [place] [address] Dr. Deloris Nolan VITAMIN D 25 OHon 08-08-2022 VIT D 25-OH 45.3 ng/mL Normal [facility] Comment on above: Performed By: #### A LPHA-1 #### [facility] [address] [address] [address] Deloris Nolan VIT D RANGES SEE BELOW Normal [facility] Comment on above: Result Comment: <20 ng/mL Vit D deficient 20 - <30 ng/mL Vit D insufficient 30 - 100 ng/mL Vit D sufficient >100 ng/mL Potential Toxicity Performed By: #### A LPHA-1 #### [facility] [address] [address] [address] 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/Embalmer MRI Shoulder w/o Righton MRI Shoulder w/o [...] by Blanco Tanner on 05/18/2022 1247 Normal [facility] HEARING TEST/AUDIOGRAM [facility] Vital Signs Date Time Vital Sign Value Performing Clinician Facility 08-27-2023 13:40-0500 Body height 172.72 cm Julien Ronald Other [facility] 08-27-2023 13:40-0500 Body mass index (BMI) [Ratio] 32.54 kg/m2 Julien Ronald Other [facility] 08-27-2023 13:40-0500 Body temperature 97.8 [degF] Julien Ronald Other [facility] 08-27-2023 13:40-0500 Body weight 97.07 kg Julien Ronald Other [facility] 08-27-2023 13:40-0500 Diastolic blood pressure 84 mm[Hg] Ujlien Ronald Other [facility] 08-27-2023 13:40-0500 Respiratory rate 18 /min Julien Ronald Other [facility] 08-27-2023 13:40-0500 SaO2% (BldA) [Mass fraction] 98 % Julien Ronald Other [facility] 08-27-2023 13:40-0500 Systolic blood pressure 141 mm[Hg] Julien Ronlad Other [facility] 08-10-2023 08:50-0400 Heart rate 85 /min Elicia Cross APRN.POWDERMAN Work Phone: [facility] 08-10-2023 08:50-0400 Respiratory rate 17 /min Elicia Cross APRN.POWDERMAN Work Phone: [facility] 08-10-2023 08:50-0400 SaO2% (BldA) [Mass fraction] 97 % Elicia Cross APRN.POWDERMAN Work Phone: [facility] 12-26-2022 11:30-0400 Body height 172.72 cm Jignesh Sargent Other [facility] 12-26-2022 11:30-0400 Body mass index (BMI) [Ratio] 34.06 kg/m2 Jignesh Wilkinsrodolfo Other [facility] 12-26-2022 11:30-0400 Body weight 101.61 kg Jignesh Wilkinsrodolfo Other [facility] 12-26-2022 11:30-0400 Diastolic blood pressure 70 mm[Hg] Jignesh Wooddarrion Other [facility] 12-26-2022 11:30-0400 Systolic blood pressure 125 mm[Hg] Jignesh Wilkinsanthonyy Other [facility] 08-22-2022 10:45-0500 Body height 172.72 cm Jignesh Wilkinsanthonydarrion Other [facility] 08-22-2022 10:45-0500 Body mass index (BMI) [Ratio] 34.97 kg/m2 Jignesh Woody Other [facility] 08-22-2022 10:45-0500 Body weight 104.33 kg Jignesh Woody Other [facility] 08-22-2022 10:45-0500 Diastolic blood pressure 74 mm[Hg] Jignesh Arie Other [facility] 08-22-2022 10:45-0500 Systolic blood pressure 123 mm[Hg] Jignesh Woody Other [facility] 08-22-2022 10:19-0500 Body weight 0 kg MD Wendy Chinchilla Work Phone: [facility] 08-14-2022 11:00-0500 Body height 172.72 cm Julien Ronald Other [facility] 08-14-2022 11:00-0500 Body mass index (BMI) [Ratio] 35.64 kg/m2 Julien Ronald Other [facility] 08-14-2022 11:00-0500 Body temperature 96.8 [degF] Julien Ronald Other [facility] 08-14-2022 11:00-0500 Body weight 106.32 kg Julien Ronald Other [facility] 08-14-2022 11:00-0500 Diastolic blood pressure 82 mm[Hg] Julien Ronald Other [facility] 08-14-2022 11:00-0500 Respiratory rate 18 /min Julien Ronald Other [facility] 08-14-2022 11:00-0500 SaO2% (BldA) [Mass fraction] 97 % Julien Ronald Other [facility] 08-14-2022 11:00-0500 Systolic blood pressure 131 mm[Hg] Julien Ronald Other [facility] 02-13-2022 10:20-0400 Body height 172.72 cm Julien Ronald Other [facility] 02-13-2022 10:20-0400 Body mass index (BMI) [Ratio] 36.18 kg/m2 Julien Ronald Other [facility] 02-13-2022 10:20-0400 Body temperature 96.8 [degF] Julien Ronald Other [facility] 02-13-2022 10:20-0400 Body weight 107.96 kg Julien Ronald Other [facility] 02-13-2022 10:20-0400 Diastolic blood pressure 70 mm[Hg] Julien Ronald Other [facility] 02-13-2022 10:20-0400 Respiratory rate 18 /min Julien Ronald Other [facility] 02-13-2022 10:20-0400 SaO2% (BldA) [Mass fraction] 98 % Julien Ronald Other [facility] 02-13-2022 10:20-0400 Systolic blood pressure 118 mm[Hg] Julien Ronald Other [facility] 08-10-2021 14:00-0400 Body height 172.72 cm Julien Ronald Other [facility] 08-10-2021 14:00-0400 Body mass index (BMI) [Ratio] 35.79 kg/m2 Julien Ronald Other [facility] 08-10-2021 14:00-0400 Body temperature 97 [degF] Julien Ronald Other [facility] 08-10-2021 14:00-0400 Body weight 106.78 kg Julien Ronald Other [facility] 08-10-2021 14:00-0400 Diastolic blood pressure 82 mm[Hg] Julien Ronald Other [facility] 08-10-2021 14:00-0400 Respiratory rate 18 /min Julien Ronald Other [facility] 08-10-2021 14:00-0400 SaO2% (BldA) [Mass fraction] 96 % Julien Ronald Other [facility] 08-10-2021 14:00-0400 Systolic blood pressure 126 mm[Hg] Julien Ronald Other [facility] Other Encounters Encounter Date Encounter Type Care Provider Facility Start: 09-03-2024 End: 09-03-2024 ambulatory Mt Hernandez Facility:[facility] Start: 09-02-2024 End: 09-02-2024 Telephone encounter Wendy Chinchilla MD Work Phone: [facility] Start: 08-21-2024 End: 08-22-2024 Refill Wendy Chinchilla MD Work Phone: [facility] Comment on above: Mixed hyperlipidemia (CMS/HCC) Start: 08-19-2024 End: 08-19-2024 Clinisync Result Encounter Generic External Data Provider [facility] Unsolicited Start: 08-19-2024 End: 08-19-2024 Clinisync Result Encounter Generic External Data Provider [facility] Unsolicited Start: 08-14-2024 End: 08-20-2024 Refill Wendy Chinchilla MD Work Phone: [facility] Comment on above: Type 2 diabetes bin itus with diabetic polyneuropathy, without long-term current use of insulin ([facility]/HCC) Start: 08-06-2024 End: 08-06-2024 Telephone encounter Wendy Chinchilla MD Work Phone: [facility] Start: 08-05-2024 End: 08-05-2024 Refill Wendy Chinchilla MD Work Phone: [facility] Comment on above: Type 2 diabetes bin itus with diabetic polyneuropathy, without long-term current use of insulin ([facility]) Start: 08-02-2024 End: 08-02-2024 Refill Ayse Sewell NP Work Phone: [facility] Comment on above: Primary hypertension ([facility]) Start: 07-26-2024 End: 07-28-2024 Refill Wendy Chinchilla MD Work Phone: [facility] Comment on above: Type 2 diabetes bin itus with stage 2 chronic kidney disease, without long-term current use of insulin ([facility]) Start: 07-21-2024 End: 07-21-2024 Bamboo flowsheet Satish A Felter SLIVER MACHINE OPERATOR-POWDERMAN Work Phone: [facility] Start: 07-21-2024 End: 07-21-2024 Bamboo flowsheet Satish A Felter SLIVER MACHINE OPERATOR-POWDERMAN Work Phone: [facility] Start: 07-21-2024 End: 07-21-2024 ambulatory SATISH A FELTER Not Available Start: 07-21-2024 End: 07-21-2024 Office outpatient visit 15 minutes Satish A Felter SLIVER MACHINE OPERATOR-POWDERMAN Work Phone: [facility] Comment on above: Seborrheic keratosis (Primary Dx); Melanocytic nevus of trunk; Capillary angioma Start: 07-19-2024 End: 07-21-2024 Refill Ayse Donato MCKEON Work Phone: [facility] Comment on above: Type 2 diabetes bin itus with stage 2 chronic kidney disease, without long-term current use of insulin ([facility]) Start: 07-15-2024 End: 07-15-2024 ambulatory WENDY CHINCHILLA [facility] Start: 07-03-2024 End: 07-03-2024 ambulatory WENDY CHINCHILLA [...] Start: 02-19-2024 End: 02-19-2024 ambulatory Mt Hernandez Facility:[facility] Start: 01-03-2024 End: 01-03-2024 Patient encounter procedure MD Wendy Chinchilla Work Phone: [facility] Work Phone: Start: 01-03-2024 End: 01-03-2024 ambulatory MD Wendy Chinchilla Work Phone: [facility] Work Phone: Start: 12-27-2023 End: 12-27-2023 Patient encounter procedure MD Wendy Chinchilla Work Phone: [facility] [place] Work Phone: Start: 12-27-2023 End: 12-27-2023 ambulatory MD Wendy Chinchilla Work Phone: [facility] Work Phone: Start: 12-07-2023 End: 12-07-2023 ambulatory WENDY CHINCHILLA Not Available Start: 11-27-2023 End: 11-27-2023 ambulatory JOHN HIGGINS Not Available Start: 11-26-2023 End: 11-26-2023 ambulatory MORENA FARR Not Available Start: 11-19-2023 End: 11-19-2023 ambulatory Zander Cline DIRECTOR OF ENROLLMENT [facility] Comment on above: DDD (degenerative di sc disease), lumbar (Primary Dx); DDD (degenerative disc disease), thoracic Type 2 diabetes bin itus without complication, without long-term current use of insulin ([facility]) Start: 11-19-2023 Bamboo flowsheet Zander Velazquez nce DIRECTOR OF ENROLLMENT [facility] Start: 11-19-2023 Bamboo flowsheet Zander Velazquez nce DIRECTOR OF ENROLLMENT [facility] Start: 11-15-2023 End: 11-15-2023 ambulatory Zander Cline DIRECTOR OF ENROLLMENT [facility] Comment on above: DDD (degenerative di sc disease), lumbar (Primary Dx); DDD (degenerative disc disease), thoracic Start: 11-13-2023 End: 11-13-2023 ambulatory ZANDER CLINE Not Available Start: 11-12-2023 End: 11-12-2023 ambulatory JENNI SERRANO Facility:[facility] Start: 11-12-2023 End: 11-12-2023 Patient encounter procedure Jenni Serrano MD Work Phone: Otolaryngology Comment on above: Oral lesion Start: 11-09-2023 End: 11-09-2023 ambulatory Zander Cline DIRECTOR OF ENROLLMENT [facility] Comment on above: DDD (degenerative di sc disease), lumbar (Primary Dx); DDD (degenerative disc disease), thoracic Start: 11-08-2023 End: 11-08-2023 ambulatory SATISHLEONARD RAMIREZPEPITO Not Available Start: 11-06-2023 End: 11-06-2023 ambulatory ZANDER CLINE Not Available Start: 11-02-2023 End: 11-02-2023 ambulatory ZANDER CLINE Not Available Start: 10-31-2023 End: 10-31-2023 ambulatory ZANDER CLINE Not Available Start: 10-29-2023 End: 10-29-2023 ambulatory VASIHALI HENDRICKS Not Available Start: 10-26-2023 End: 10-26-2023 ambulatory ZANDER CLINE Not Available Start: 10-24-2023 End: 10-24-2023 ambulatory MORENA FARR Not Available Start: 10-16-2023 End: 10-16-2023 ambulatory JOHN HIGGINS Not Available Start: 10-10-2023 Telephone encounter Elicia Cross SLIVER MACHINE OPERATOR.POWDERMAN Work Phone: Otolaryngology Comment on above: Appointment Start: 10-09-2023 End: 10-09-2023 ambulatory REBECA HERRERA Not Available Start: 09-24-2023 End: 09-24-2023 ambulatory SATISH KOO Not Available Start: 09-06-2023 End: 09-06-2023 ambulatory WENDY CHINCHILLA Not Available Start: 08-27-2023 End: 08-27-2023 ambulatory Julien Ronald Other [facility] [employer] Other Start: 08-27-2023 Office outpatient vi sit 15 minutes Julien Ronald [facility] Start: 08-21-2023 End: 08-21-2023 ambulatory REBECA HERRERA Not Available Start: 08-10-2023 End: 08-10-2023 ambulatory ELICIA CROSS Facility:[facility] Start: 08-10-2023 End: 08-10-2023 Patient encounter procedure Ester Toledo AuD, CCC-A Work Phone: Audiology Comment on above: Other specified hear ing loss, unspecified ear (Primary Dx); Type 2 diabetes mellitus with stage 3a chronic kidney disease, without long-term current use of insulin (HCC) Bilateral high frequ ency sensorineural hearing loss (Primary Dx); Oral lesion Start: 06-14-2023 Orders Only Elicia Gunderson son SLIVER MACHINE OPERATOR.POWDERMAN Work Phone: [facility] [place] Comment on above: Other specified hear ing loss, unspecified ear (Primary Dx) Start: 02-12-2023 End: 02-13-2023 ambulatory JULIEN RONALD Facility:[facility] Start: 12-26-2022 End: 12-26-2022 ambulatory Jignesh Noryanthonyy Other [facility] Other Start: 12-26-2022 Patient encounter procedure Jignesh Sargent [facility] Start: 10-12-2022 End: 10-12-2022 ambulatory Julien Ronald Other [facility] Other Start: 10-12-2022 Telephone encounter Julien Ronald [facility] Start: 08-30-2022 End: 08-30-2022 ambulatory MD Wendy Chinchilla Work Phone: [facility] Work Phone: Start: 08-30-2022 End: 08-30-2022 Patient encounter procedure MD Wendy Chinchilla Work Phone: [facility] Start: 2022 End: 08-30-2022 ambulatory JIGNESH NORYANTHONYDarrion Facility:[facility] Start: 08-22-2022 End: 08-22-2022 ambulatory Jignesh Noryanhtonyy Other [facility] Other Start: 08-22-2022 [facility] visit new patient Jignesh Sargent [facility] Start: 08-14-2022 End: 08-14-2022 ambulatory Julien Ronald Other [facility] Other Start: 08-14-2022 Office outpatient vi sit 25 minutes Julien Ronald [facility] Start: 08-08-2022 End: 08-09-2022 ambulatory JULIEN RONALD Facility: Start: 02-13-2022 End: 02-13-2022 ambulatory Julien Ronald Other [facility] Other Start: 02-13-2022 Office outpatient vi sit 15 minutes Julien Ronald [facility] Start: 11-23-2021 End: 11-23-2021 ambulatory Julien Ronald Other [facility] Other Start: 11-23-2021 Telephone encounter Julien Ronald [facility] Start: 08-10-2021 End: 08-10-2021 ambulatory Julien Ronald Other [facility] Other Start: 08-10-2021 Office outpatient vi sit 15 minutes Julien Ronald [facility] Procedures Date Procedure Procedure Detail Performing Clinician Start: 08-19-2024 ALL MAGNESIUM Generic External Viet a Provider Start: 08-19-2024 ALL RENAL FUNCTION PANEL Generic Externa l Data Provider Start: 08-19-2024 ALL URIC ACID Generic External Viet a Provider Start: 08-19-2024 [facility] CBC WITH PLATELET NO DIFFERENTIAL Generic External Data Provider Start: 08-19-2024 [facility] PTH, INTRAOPERATIVE Generic Externa l Data Provider Start: 08-19-2024 [facility] VITAMIN D 25 [place] Generic External Viet a Provider Start: 08-19-2024 [facility] URINALYSIS, WITH MICROSCOPIC Generic External Data Provider Start: 08-19-2024 TB URINE T PROTEIN CREAT RATIO Generic External Data Provider Start: 01-03-2024 Ultrasound elastography of liver MD Wendy Chinchilla Work Phone: Start: 10-09-2023 Mammography Zanderyemi Cline DIRECTOR OF ENROLLMENT Start: 08-10-2023 HEARING TEST/AUDIOGRAM Ester Robert en AuD, CCC-A Work Phone: Start: 04-27-2023 History of operative procedure on knee History of knee surgery Zander Cline DIRECTOR OF ENROLLMENT Start: 08-30-2022 Ultrasound elastography of liver MD Wendy Chinchilla Work Phone: Start: 08-05-2020 Colonoscopy Zander Cline DIRECTOR OF ENROLLMENT Plan of Treatment Date Care Activity Detail Author Start: 08-05-2030 Screening for malign ant neoplasm of colon [facility] Start: 05-15-2029 Urine microalbumin profile DTaP,Tdap,Td Vaccine (6 - Td or Tdap) [facility] Start: 10-30-2025 Glaucoma screening Diabetes: R etinopathy Screening [facility] Start: 07-21-2025 End: 07-21-2025 Patient encounter procedure 07/21/2025 9:20 AM EDT Office Visit [facility] [address] [place] [id number] Satish Koo, SLIVER MACHINE OPERATOR-POWDERMAN [address] [place] [address] [facility] Start: 06-13-2025 Urine screening for protein Diabetes: Urine Protein Screening [facility] Start: 05-18-2025 End: 05-18-2025 Patient encounter procedure 05/18/2025 9:00 AM EDT Office Visit [facility] [address] [place] [phone] Jr. Melvin Pham C, DO [address] [facility] [address] [place] [address] [facility] Start: 10-09-2024 Screening for malign ant neoplasm of breast [facility] Start: 09-16-2024 End: 09-16-2024 Patient encounter procedure 09/16/2024 9:00 AM EST Office Visit [facility] [address] [place] [phone] Wendy Chinchilla MD [address] [place] [address] [facility] Start: 09-12-2024 Hemoglobin A1c measurement Diabetes: Hemoglobin A1C [facility] Start: 08-21-2024 Medicare Annual Wellness (AWV) Medicare Annual Wellness (AWV) [facility] Start: 07-21-2024 End: 07-21-2024 Patient encounter procedure 07/21/2024 9:20 AM EDT Office Visit [facility] [address] [place] [address] [employer] Satish YAQUELIN العلي-POWDERMAN [address] [place] [address] [facility] Start: 06-08-2024 Influenza vaccination Influenz a Vaccine (Season Ended) [facility] Start: 05-16-2024 End: 05-16-2024 Patient encounter procedure 05/16/2024 9:30 AM EDT Office Visit [facility] [address] [facility] [address] [place] [address] Barb Richards PA [address] [facility] [address] [place] [address] [facility] Start: 03-24-2024 Complete blood count Hemoglobin/Migel tocrit [facility] Start: 03-24-2024 Creatinine measurement Serum Creatin ine [facility] Start: 03-06-2024 Hemoglobin A1c measurement HbA1C [facility] Start: 01-03-2024 [facility] Start: 12-07-2023 End: 12-07-2023 Patient encounter procedure 12/07/2023 9:30 AM EST Office Visit [facility] [address] [place] [phone] Wendy Chinchilla MD [address] [place], [place] [phone] [facility] Start: 12-06-2023 Hemoglobin A1c measurement Diabetes: Hemoglobin A1C [facility] Start: 12-06-2023 Hemoglobin A1c/Hemoglobin.total in Blood HbA1C [facility] Start: 11-27-2023 End: 11-27-2023 Patient encounter procedure 11/27/2023 9:30 AM EST Office Visit [facility] [address] [place] [address] John Higgins, DO [address] [place] [address] [facility] Start: 11-26-2023 End: 11-26-2023 ambulatory 11/26/2023 10:30 AM EST Treatment [facility] [address] [place] [address] Morena Farr, PT [address] [place] [address] [facility] Start: 11-21-2023 End: 11-21-2023 ambulatory [facility] Start: 11-19-2023 End: 11-19-2023 ambulatory [facility] Comment on above: Arrived Start: 11-15-2023 End: 11-15-2023 ambulatory 11/15/2023 12:30 PM EST Treatment [facility] [address] [place] [address] Zander Cline PTA [facility] Start: 11-13-2023 End: 11-13-2023 ambulatory 11/13/2023 10:30 AM EST Treatment [facility] [address] [place] [address] Zander Cline PTA [facility] Start: 10-08-2023 Advance Directive Discussion Advance Directive Discussion [facility] Start: 10-08-2023 Behavioral Health Screening Behavioral Health Screening [facility] Start: 10-08-2023 Depression Assessment Depression Ass essment [facility] Start: 06-08-2023 Covid-19 Vaccine () Covid-19 Vaccine () [facility] Start: 06-08-2023 Influenza vaccination C [facility] Start: 10-08-2022 ADVANCE DIRECTIVE DISCUSSION ADVANCE DIRECTIVE DISCUSSION [facility] Start: 10-08-2022 DEPRESSION ASSESSMENT DEPRESSION ASS ESSMENT [facility] Start: 08-30-2022 [facility] Start: 2017 BONE DENSITY BONE DENSITY [facility] Start: 2017 Bone Density Screening Bone Density Screening [facility] Start: 2017 PNEUMOCOCCAL: 65+ (1 - PCV) PNEUMOCOCCAL: 65+ (1 - PCV) [facility] Start: 2017 Screening for osteoporosis Bone Density Screening [facility] Start: 2012 Hepatitis B Vaccine (1 of 3 - Risk 3-dose series) Hepatitis B Vaccine (1 of 3 - Risk 3-dose series) [facility] Start: 2012 RSV Vaccine (1 - 1-d ose 60+ series) RSV Vaccine (1 - 1-dose 60+ series) [facility] Start: 2002 SHINGRIX VACCINE (1 of 2) SHINGRIX VACCINE (1 of 2) [facility] Start: 1997 COLOGUARD (FIT-DNA) COLOGUARD (FIT-D NA) [facility] Start: 1997 Colonoscopy COLONOSCOPY [facility] Start: 1997 COLORECTAL CANCER SCREENING COLORECTAL CANCER SCREENING [facility] Start: [address] COLONOGRAPHY [facility] Start: 1997 DIABETES SCREEN DIABETES SCREEN [facility] Start: 1997 FECAL OCCULT BLOOD FECAL OCCULT BLOO D [facility] Start: 1997 LIPID SCREEN LIPID SCREEN [facility] Start: 1997 Screening for malign ant neoplasm of colon [facility] Start: 1997 SIGMOIDOSCOPY SIGMOIDOSCOPY [facility] Start: 1992 Mammography [facility] Start: 1971 Urine microalbumin profile DTAP,TDAP,TD (1 - Tdap) [facility] Start: 1970 Annual PCP Team Unarmed Security Guard vicky Disease Visit Annual PCP Team Chronic Disease Visit [facility] Start: 1970 BP Controlled (<130/80) BP Controlle d (<130/80) [facility] Start: 1970 Hemoglobin/Hematocrit Hemoglobin/Hem atocrit [facility] Start: 1970 Hepatitis B surface antibody level LDL Cholesterol [facility] Start: 1970 HEPATITIS C SCREENING HEPATITIS C [facility] Start: 1970 Hepatitis C screening Hepatitis C [facility] Start: 1970 Serum Creatinine Serum Creatinine Cl [facility] Start: 1962 3 comp foot exam completed Diabetic Foot Exam [facility] Start: 1962 Diabetic foot examination Diabetic Foot Exam [facility] Start: 1962 Glaucoma screening Dilated Retinal E xam [facility] Start: 1962 Hepatitis B screening Urine Albumin:Creatinine Ratio [facility] Start: 1962 Hepatitis C antibody , confirmatory test Dilated Retinal Exam [facility] Start: 02-26-1953 COVID-19 VACCINE (#1) COVID-19 VACCI NE (#1) [facility] Start: 1952 Screening for malign ant neoplasm of colon [facility] End: 06-14-2024 HEARING TEST/AUDIOGRAM HEARING TEST/AUDIOGRAM Audiology Routine Other specified hearing loss, unspecified ear 1 Occurrences starting 06/14/2023 until 06/14/2024 [facility] Work Phone: Comment on above: 1 Occurrences starti ng 06/14/2023 until 06/14/2024 [facility] Immunizations Immunization Date Immunization Notes Care Provider Fa [facility] 07-03-2024 SARS-COV-2 (COVID-19 ) vaccine, mRNA, spike protein, LNP, PF, marciano-sucrose, 30 mcg/0.3 mL Satish Koo SLIVER MACHINE OPERATOR-POWDERMAN Work Phone: [facility] 06-13-2024 Influenza, High-dose Seasonal, Quadrivalent, Preservative Free Satish Koo SLIVER MACHINE OPERATOR-POWDERMAN Work Phone: [facility] 09-06-2023 Influenza, High-dose Seasonal, Quadrivalent, Preservative Free Zander Cline [facility] 06-30-2022 influenza, high dose seasonal, preservative-free Zander Cline [facility] 06-30-2022 Influenza, High-dose Seasonal, Quadrivalent, Preservative Free Zander Cline [facility] 06-30-2022 influenza virus vaccine, unspecified formulation Jenni Serrano MD Work Phone: [facility] 11-17-2021 pneumococcal polysaccharide vaccine, 23 valent Zander Cline [facility] 10-04-2021 Influenza, Seasonal, Quadrivalent, Adjuvanted Zander Cline [facility] 10-04-2021 influenza virus vaccine, unspecified formulation Ester Burrell, [facility] Work Phone: [facility] 08-09-2020 zoster vaccine recombinant Zander Cline [facility] 06-07-2020 influenza, injectabl e, quadrivalent, preservative free Zander Cline [facility] 05-21-2020 influenza, injectabl e, quadrivalent, preservative free Zander Cline [facility] 05-21-2020 zoster vaccine recombinant Zander Cline [facility] 06-25-2019 influenza, high dose seasonal, preservative-free Zander Cline [facility] 05-15-2019 tetanus toxoid, redu kisha diphtheria toxoid, and acellular pertussis vaccine, adsorbed Zanderrasta Cline [facility] 03-31-2019 tetanus and diphther ia toxoids, adsorbed, preservative free, for adult use (5 Lf of tetanus toxoid and 2 Lf of diphtheria toxoid) Zander [facility] 03-31-2019 tetanus toxoid, redu kisha diphtheria toxoid, and acellular pertussis vaccine, adsorbed Julien Ronald Other [facility] 07-04-2018 Seasonal trivalent influenza vaccine, adjuvanted, preservative free Zander Cline [facility] 02-07-2018 pneumococcal conjuga te vaccine, 13 valent Zander Cline [facility] 06-18-2017 influenza, injectabl e, quadrivalent, preservative free Zander Clnie [facility] 05-21-2017 influenza, injectabl e, quadrivalent, preservative free Zander Cline [facility] 08-04-2016 influenza, injectabl e, quadrivalent, preservative free Zander Cline [facility] 06-19-2016 pneumococcal polysaccharide vaccine, 23 valent Zander Cline [facility] 08-31-2015 influenza, seasonal, injectable, preservative free Zander Cline [facility] 07-20-2015 influenza, seasonal, injectable Julien Ronald Other [facility] 03-12-2015 zoster vaccine, live Zander lCine [facility] 07-13-2014 influenza, seasonal, injectable, preservative free Zander Cline [facility] 08-18-2013 influenza virus vaccine, whole virus Zander Cline [facility] 08-08-2013 seasonal influenza, intradermal, preservative free Zander Cline [facility] 07-25-2012 influenza, seasonal, injectable, preservative free Zander Cline [facility] 07-12-2009 diphtheria, tetanus toxoids and pertussis vaccine Zander Cline [facility] 07-12-2009 tetanus toxoid, redu kisha diphtheria toxoid, and acellular pertussis vaccine, adsorbed Zander Cline [facility] Payers Date Payer Category Payer Self-pay [id number] 2023 Unknown [employer] [facility] [employer] [id number] 2023-Present [address] [place] [id number] [id number] [id number] 2022 Medicare [employer] [facility] [place] P[place] [id number] 2022-Present [phone] [address] [place] [address] PPO [id number] 2022 Medicare (Managed Care) [employer] [id number] [id number] 2021 Unknown [id number] 2.16.840.1.117376.19 1959 Medicare [id number] 2.16.840.1.264590.19 1959 Private Health Insurance [id number] 2.16.840.1.639376.19 1952 Unknown [id number] 2.16.840.1.423590.3.579. 2.593 1952 Unknown [id number] 2.16.840.1.960798.3.579. 2.593 1952 Unknown [id number] 2.16.840.1.656216.3.579. 2.593 1952 Unknown [id number] 2.16.840.1.604226.3.579. 2.1286 1952 Unknown [id number] 2.16.840.1.720438.3.579. 2.1259 1952 Unknown [id number] 2.16.840.1.585068.3.579. 2.1259 1952 Unknown [id number] 2.16.840.1.132417.3.579. 2.1259 1952 Unknown [id number] 2.16.840.1.024854.3.579. 2.1259 1952 Unknown [id number] 2.16.840.1.132091.3.579. 2.1259 1952 Unknown [id number] 2.16.840.1.615007.3.579. 2.1259 1952 Unknown [id number] 2.16.840.1.727446.3.579. 2.1259 1952 Unknown [id number] 2.16.840.1.925812.3.579. 2.1259 1952 Unknown [id number] 2.16.840.1.939932.3.579. 2.1259 1952 Unknown [id number] 2.16.840.1.778054.3.579. 2.1259 1952 Unknown [id number] 2.16.840.1.975603.3.579. 2.1258 1952 Unknown [id number] 2.16.840.1.056448.3.579. 2.1258 1952 Unknown [id number] 2.16.840.1.731638.3.579. 2.1258 1952 Unknown [id number] 2.16.840.1.308443.3.579. 2.1258 1952 Unknown [id number] 2.16.840.1.750006.3.579. 2.1258 1952 Unknown [id number] 2.16.840.1.407438.3.579. 2.1258 1952 Unknown [id number] 2.16.840.1.609314.3.579. 2.1258 1952 Unknown [id number] 2.16.840.1.773695.3.579. 2.1258 1952 Unknown [id number] 2.16.840.1.217148.3.579. 2.1258 1952 Unknown [id number] 2.16.840.1.581416.3.579. 2.1258 1952 Unknown [id number] 2.16.840.1.238870.3.579. 2.1258 1952 Unknown [id number] 2.16.840.1.265080.3.579. 2.125 1952 Unknown [id number] 2.16.840.1.272019.3.579. 2.1258 1952 Unknown [id number] 2.16.840.1.586005.3.579. 2.125 1952 Unknown [id number] 2.16.840.1.623441.3.579. 2.1259 1952 Unknown [id number] 2.16.840.1.704756.3.579. 2.1259 1952 Unknown [id number] 2.16.840.1.993297.3.579. 2.1259 1952 Unknown [id number] 2.16.840.1.898627.3.579. 2.125 1952 Unknown [id number] 2.16.840.1.495479.3.579. 2.1259 1952 Unknown [id number] 2.16.840.1.520277.3.579. 2.1258 1952 Unknown [id number] 2.16.840.1.607903.3.579. 2.9 1952 Unknown [id number] 2.16.840.1.656543.3.579. 2.1258 1952 Unknown [id number] 2.16.840.1.506363.3.579. 2.1259 1952 Unknown [id number] 2.16.840.1.051821.3.579. 2.1259 Private Health Insurance [facility] [id number] Unknown [id number] 2.16.840.1.529957.3.579. 2.531 Unknown [id number] 2.16.840.1.448321.3.579. 2.531 Unknown [id number] 2.16.840.1.364607.3.579. 2.531 Unknown [id number] 2.16.840.1.198574.3.579. 2.531 Social History Date Type Detail Facility Unknown if ever smoked [facility] Start: 08-21-2023 End: 12-01-2023 Sex Assigned At [facility] Start: 1950 Sex Assigned At Female [facility] Tobacco smoking stat us NHIS Tobacco smoking consumption unknown [facility] Start: 1950 Sex Assigned At Not on file [facility] Start: 05-29-2023 Gender identity Identifies as female gender (finding) [facility] Start: 06-15-2023 Sexual orientation Heterosexual (finding) [facility] Start: 04-27-2023 End: 12-07-2023 Tobacco smoking status NHIS Never smoked tobacco [facility] Start: 04-27-2023 End: 12-07-2023 Tobacco use and exposure Smokeless tobacco non-user [facility] Start: 11-08-2023 End: 07-21-2024 Alcohol intake Ex-drinker (finding) [facility] Start: 08-21-2023 End: 12-01-2023 History of Social function [facility] How often to you hav e a drink containing alcohol? Never [facility] How many standard dr inks containing alcohol do you have on a typical day? Patient does not drink [facility] Start: 05-16-2023 Alcohol Comment Caffeine intake: 1-2 cups per day coffee [facility] Do you belong to any clubs or organizations such as sabianist groups, unions, fraternal or athletic groups, or school groups? Yes [facility] Are you now , , , , never or living with a partner? [facility] Do you feel stress - tense, restless, nervous, or anxious, or unable to sleep at night because your mind is troubled all the time - these days [OSQ] Not at all [facility] (I/We) worried wheth er (my/our) food would run out before (I/we) got money to buy more. Never true [facility] In the past 12 month s, was there a time when you were not able to pay the mortgage or rent on time? No [facility] Start: 12-07-2023 Tobacco Comment never used it [facility] Start: 06-13-2024 Alcohol Comment occasional glass of wine - 1 maybe in 6 mo. [facility] Medical Equipment Procedure Code Equipment Code Equipment Origin al Text Equipment Identifier Dates Lancets (OneTouc h Delica Plus [id number][place] [facility] [place] [id number] Start: 04-07-2023 OneTouch Verio t est strip [id number] FINGERSTICK DAILY. [id number] Start: 02-04-2024 End: 07-21-2024 USE AND DISCARD 1 LANCET FINGERSTICK DAILY [id number] Start: 12-21-2023 FINGERSTICK DAILY. [id number] Start: 07-21-2024 Goals Date Patient Goal Desired Activity /State Clinical Notes 08-10-2021 to 09-02-2024 Telephone Encounter - Christa Muñiz - 09/02/2024 4:18 PM ESTTelephone Encounter - Christa Muñiz - 09/02/2024 4:18 PM ESTTelephone Encounter - Wendy Chinchilla MD - 08/22/2024 12:32 PM EST Note Date & Type Note Facility 09-02-2024 Telephone encounter Note Patient left a vm inquiring if you have seen the message from her on my chart and a fax from Dr. Ruff. She would like a call to discuss what is next. Ty [facility] 09-02-2024 Miscellaneous Notes Patient left a vm inquiring if you have seen the message from her on my chart and a fax from Dr. Ruff. She would like a call to discuss what is next. Ty documented in this encounter [facility] 08-22-2024 Telephone encounter Note Refills sent. [facility] 08-22-2024 Miscellaneous Notes Refills sent. documented in this encounter [facility] 08-20-2024 Telephone encounter Note Pt scheduled for 09/16/24 [facility] 08-20-2024 Miscellaneous Notes Pt scheduled for 09/16/24 Approving, but needs appt for additional refills. Patient called today and states the Januvia prescription was sent to her mail in Pharmacy and she needs it to go to [facility] in [place], she only has a couple left. Ty documented in this encounter [facility] 08-15-2024 Telephone encounter Note Approving, but needs appt for additional refills. [facility] 08-15-2024 Telephone encounter Note Patient called today and states the Januvia prescription was sent to her mail in Pharmacy and she needs it to go to [facility] in [place], she only has a couple left. Ty [facility] 08-06-2024 Telephone encounter Note Patient has an appt scheduled with Dr. Arie Walton on . they need all her testing, ultrasound, echo, labs and why she is having the testing with Dr. Sargent. Thank you. [facility] 08-06-2024 Miscellaneous Notes Patient has an appt scheduled with Dr. Arie Walton on . they need all her testing, ultrasound, echo, labs and why she is having the testing with Dr. Sargent. Thank you. documented in this encounter [facility] 08-05-2024 Telephone encounter Note Refills sent. [facility] 08-05-2024 Miscellaneous Notes Refills sent. documented in this encounter [facility] 07-28-2024 Telephone encounter Note Refills sent. [facility] 07-28-2024 Miscellaneous Notes Refills sent. documented in this encounter [facility] 07-21-2024 History of Presen t illness [...] year, skin check documented in this encounter [facility] 11-12-2023 Note HNO ID: [id number] Author: JENNI SERRANO MD Service: ? Author [...] kidney disease) stage 3, GFR 30-59 ml/min ([facility]) DM type 2 (diabetes mellitus, type 2) ([facility]) HTN (hypertension) Hypothyroidism Mixed hyperlipidemia Overactive bladder [...] of lesions. TMs clear and mobile. Neurologic: strategic marketing manager II-XII grossly intact. Assessment/Plan: Reassured no apparent oral lesion. 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 F/up prn. Medical Decision Making: Problems: Low: Acute, uncomplicated illness or injury Risk: Minimal: Minimal risk from testing/treatment Medical Decision Making Level: 2 - Straightforward [facility] 11-12-2023 History of Presen t illness Narrative [...] kidney disease) stage 3, GFR 30-59 ml/min ([facility]) DM type 2 (diabetes mellitus, type 2) ([facility]) HTN (hypertension) Hypothyroidism Mixed hyperlipidemia Overactive bladder [...] of lesions. TMs clear and mobile. Neurologic: strategic marketing manager II-XII grossly intact. Assessment/Plan: Reassured no apparent oral lesion. 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 F/up prn. Medical Decision Making: Problems: Low: Acute, uncomplicated illness or injury Risk: Minimal: Minimal risk from testing/treatment Medical Decision Making Level: 2 - Straightforward documented in this encounter [facility] 10-11-2023 Telephone encounter Note Patient returned call to Leann regarding the message Leann left. Patient states to call again at [phone]. Patient will accept any open slot. [facility] 10-11-2023 Miscellaneous Notes Patient returned call to Leann regarding the message Leann left. Patient states to call again at [phone]. Patient will accept any open slot. Please call patient. Please let her know that I would highly recommend that she see one of our ENT svp business development physicians. They would be able to discuss with her a biopsy either in the office or the operating room if indicated. Please assist with an appointment for Dr. Rodriguez, Dr. Pope, Dr. Serrano, Dr. Duncan, or Dr. Chowdhury at the patient's earliest convenience. Please let her know that the closest location that we would be able to provide this service would be [place]. Otherwise, we have providers in [facility], or several locations on the East side or in [place] that would be able to help her with this biopsy. Not appropriate for her to see PA or SPAR MACHINE OPERATOR must be scheduled with MD only. Thank [...] calling: self Call patient at: at home [phone] (home) [phone] (cell) Was an appointment scheduled: No Closing statement: Results or non-symptom based questions: Thank you for calling [facility], your call will be returned within the next business day. Pamela Lange documented in this encounter [facility] 10-11-2023 Telephone encounter Note Please call patient. Please let her know that I would highly recommend that she see one of our ENT svp business development physicians. They would be able to discuss with her a biopsy either in the office or the operating room if indicated. Please assist with an appointment for Dr. Rodriguez, Dr. Pope, Dr. Serrano, Dr. Duncan, or Dr. Chowdhury at the patient's earliest convenience. Please let her know that the closest location that we would be able to provide this service would be [place]. Otherwise, we have providers in [facility], or several locations on the [place] side or in [place] that would be able to help her with this biopsy. Not appropriate for her to see PA or SPAR MACHINE OPERATOR must be scheduled with MD only. Thank you, Elicia Cross CNP [facility] 10-10-2023 Telephone encounter Note [facility] is calling Eilcia Cross APRN.MIGNON today to as pt went to dentist [...] calling: self Call patient at: at home [phone] (home) [phone] (cell) Was an appointment scheduled: No Closing statement: Results or non-symptom based questions: Thank you for calling [facility], your call will be returned within the next business day. Pamela Lange [facility] 08-27-2023 Evaluation note Encounter Date [...] bladder prolapse and will follow with her ENGINEERING MGR. Aug, Hyperuricemia (ICD-10 - E79.0) She has hyperuricemia due to the CKD. She denies any symptoms we will monitor without medications. [facility] 11-03-2023 NoteHNO ID: [id number] Author: Ester Blanca AuD, [facility] Service: ? Author Type: Junior Art Director Type: Procedures Filed: 08/10/2023 10:00 AM Note Text: Head and Neck [place] AUDIOLOGIC EVALUATION REPORT Name: Vivian Duran [facility]#: [id number] Date of Service: 08/10/2023 Date of : 1950 Age: [age] year old Referred by: Elicia Cross [address] [place], [place] [address]nut [facility] [place] [address] Referred for: Evaluation of the cause of disorder of hearing, tinnitus, or balance. Referral documented: In an order in [facility] Patient's major complaints: Hearing Loss/Hearing Problem. Vivian [...] evaluation of middle ear function. CPT code: 79828 RIGHT EAR: Normal ME pressure and TM compliance (mobility). LEFT EAR: Normal ME pressure and TM compliance (mobility). PURE TONE AUDIOMETRY AND SPEECH TESTING Description of procedure: This test is an objective evaluation hearing sensitivity via air and bone conduction and speech recognition testing. CPT code:30491 RIGHT EAR: Hearing Sensitivity: Hearing sensitivity within [...] 1. ENT consult today with Elicia Cross APRN.POWDERMAN. 2. Recheck as needed. 3. Hearing conservation. Tania Vasquez, PUNEET/Zohra Clinical Junior Art Director VILLANUEVA Abbrev- iation Definition Degree of hearing sensitivity dB range WNL within normal limits WNL 0 - 20 SNHL sensorineural hearing loss Mild 20-40 CHL conductive hearing loss Moderate 40-55 MHL mixed hearing loss Moderately-Severe 55-70 WRS word recognition score Severe 70-90 ME middle ear Profound 90 + TM tympanic membrane[facility]11-[facility]-2023 NoteHNO ID: [id number] Author: Elicia Cross APRN.POWDERMAN Service: ? Author Type: Nurse Practitioner Type: [...] evaluation of middle ear function. CPT code: 15876 RIGHT EAR: Normal ME pressure and TM compliance (mobility). LEFT EAR: Normal ME pressure and TM compliance (mobility). PURE TONE AUDIOMETRY AND SPEECH TESTING Description of procedure: This test is an objective evaluation hearing sensitivity via air and bone conduction and speech recognition testing. CPT code:51972 RIGHT EAR: Hearing Sensitivity: Hearing sensitivity within [...] kidney disease) stage 3, GFR 30-59 ml/min ([facility]) DM type 2 (diabetes mellitus, type 2) ([facility]) HTN (hypertension) Hypothyroidism Mixed hyperlipidemia Overactive bladder [...] BIOTIN, ORAL Take by mouth as directed. [id number]-algal oil (METANX, ALGAL OIL,) 3 mg-35 mg-2 [...] limited. Neck: No masses (more content not included)...[facility] 08-10-2023 Procedure note* Ester Blanca AuD, CCC-A - 08/10/2023 8:17 AM EDT Head and Neck [place] AUDIOLOGIC EVALUATION REPORT Name: Vivian Duran [facility]#: [id number] Date of Service: 08/10/2023 Date of : 1950 Age: [age] year old Referred by: Elicia Cross [address] [place] [address] [place] [address] Referred for: Evaluation of the cause of disorder of hearing, tinnitus, or balance. Referral documented: In an order in [facility] Patient's major complaints: Hearing Loss/Hearing Problem. Vivian reported she has some trouble hearing/understanding speech and some trouble hearing the dialogue when watching TV unless the volume is louder. Her notices this problem. Patient denies tinnitus. Vivian Duran was seen for an initial audiologic evaluation. See [facility] Audiogram for additional reported history and symptoms. [...] evaluation of middle ear function. CPT code: 72574 RIGHT EAR: Normal ME pressure and TM compliance (mobility). LEFT EAR: Normal ME pressure and TM compliance (mobility). PURE TONE AUDIOMETRY AND SPEECH TESTING Description of procedure: This test is an objective evaluation hearing sensitivity via air and boneconduction and speech recognition testing. CPT code:21372 RIGHT EAR: Hearing Sensitivity: Hearing sensitivity within [...] 1. ENT consult today with Elicia Cross APRN.MIGNON. 2. Recheck as needed. 3. Hearing conservation. Tania Vasquez, CCC/A Clinical Junior Art Director VILLANUEVA Abbrev- iation Definition Degree of hearing sensitivity dB range WNL within normal limits WNL 0 - 20 SNHL sensorineural hearing loss Mild 20-40 CHL conductive hearing loss Moderate 40-55 MHL mixed hearing loss Moderately-Severe 55-70 WRS word recognition score Severe 70-90 ME middle ear Profound 90 + TM tympanic membrane [facility] of Present illness Narrative* Elicia Cross APRN.MIGNON - 08/10/2023 7:58 AM EDT Ms. Duran [...] evaluation of middle ear function. CPT code: 33125 RIGHT EAR: Normal ME pressure and TM compliance (mobility). LEFT EAR: Normal ME pressure and TM compliance (mobility). PURE TONE AUDIOMETRY AND SPEECH TESTING Description of procedure: This test is an objective evaluation hearing sensitivity via air and boneconduction and speech recognition testing. CPT code:17520 RIGHT EAR: Hearing Sensitivity: Hearing sensitivity within [...] kidney disease) stage 3, GFR 30-59 ml/min ([facility]) DM type 2 (diabetes mellitus, type 2) ([facility]) HTN (hypertension) Hypothyroidism Mixed hyperlipidemia Overactive bladder [...] BIOTIN, ORAL Take by mouth as directed. [id number]-algal oil (METANX, ALGAL OIL,) 3 mg-35 mg-2 [...] area to rule out leukoplakia. Elicia Cross APRN.POWDERMAN [facility] note* Diagnosis Other specified hearing loss, unspecified ear- Primary Type 2 diabetes mellitus with stage 3a chronic kidney disease, without long-term current use of insulin (HCC) documented in this encounter [facility]03-21-2023 Evaluation note* Encounter Date Diagnosis Assessment Notes Treatment Notes Treatment Clinical Notes Dec, Fatty liver (ICD-10 - K76.0) Dec, CABELLO (nonalcoholic steatohepatitis) (ICD-10 - K75.81) Repeat fibroscan 1 yr F/u with Tm in 1 yr [facility] 02-22-2023 NoteHISTORY: Bone density screening COMPARISON: [...] and signed by Estrada Cummins on 11/29/2022 [facility]01-05-2023 Evaluation note* Encounter Date Diagnosis Assessment Notes Treatment Notes Treatment Clinical Notes Oct, Diabetes mellitus with chronic kidney disease (ICD-10 - E11.22) [facility] 11-15-2022 Evaluation note* Encounter Date Diagnosis Assessment Notes Treatment Notes Treatment Clinical Notes Aug, Elevated liver enzymes (ICD-10 - R74.8) [facility] 11-07-2022 Evaluation note* Encounter Date Diagnosis [...] bladder prolapse and will follow with her ENGINEERING MGR. Aug, Hyperuricemia (ICD-10 - E79.0) She has hyperuricemia due to the CKD. She denies any symptoms we will monitor without medications. [facility] 05-09-2022 Evaluation note* Encounter Date Diagnosis [...] bladder prolapse and will follow with her ENGINEERING MGR. February, Hyperglycemia (ICD-10 - R73.9) She has a fasting blood sugar above 126 mg/dL possibly she has diabetes I have advised her to monitor her blood sugars and follow with PCP. She can be started on Metformin or SGLT2 inhibitors like farxiga if needed [facility] 02-16-2022 Evaluation note* Encounter Date Diagnosis Assessment Notes Treatment Notes Treatment Clinical Notes Nov, Hypertensive chronic kidney disease with stage 1 through stage 4 chronic kidney disease, or unspecified chronic kidney disease (ICD-10 - I12.9) Nov, Chronic kidney disea se, stage III (moderate) (ICD-10 - N18.30) Nov, Secondary hyperparathyroidism (ICD-10 - N25.81) [facility] 11-03-2021 Evaluation note* Encounter Date Diagnosis [...] bladder prolapse and will follow with her ENGINEERING MGR. Aug, Hyperglycemia (ICD-10 - R73.9) She has a fasting blood sugar above 110 mg/dL possibly she has prediabetes I have advised her to monitor her blood sugars and follow with PCP. [facility] Evaluation noteNo assessment information available [facility] Work Phone: Evaluation note* Diagnosis Other specified hearing loss, unspecified ear- Primary [facility] Diagnosis Bilateral high frequency sensorineural hearing loss- Primary Sensorineural hearing loss, bilateral Oral lesion Other and unspecified diseases of the oral soft tissues [facility] Diagnosis DDD (degenerative disc disease), lumbar- Primary Degeneration of lumbar or lumbosacral intervertebral disc DDD (degenerative disc disease), thoracic Degeneration of thoracic or thoracolumbar intervertebral disc documented in this encounter [facility]* Diagnosis DDD (degenerative disc disease), lumbar- Primary Degeneration of lumbar or lumbosacral intervertebral disc DDD (degenerative disc disease), thoracic Degeneration of thoracic or thoracolumbar intervertebral disc documented in this encounter [facility]* Diagnosis DDD (degenerative disc disease), lumbar- Primary Degeneration of lumbar or lumbosacral intervertebral disc DDD (degenerative disc disease), thoracic Degeneration of thoracic or thoracolumbar intervertebral disc documented in this encounter [facility]* Diagnosis Type 2 diabetes mellitus without complication, without long-term current use of insulin ([facility]) documented in this encounter [facility] HealthcareEvaluation note* Diagnosis Oral lesion- Primary Other and unspecified diseases of the oral soft tissues [facility] Oral lesion Other and unspecified diseases of the oral soft tissues [facility] Diagnosis Type 2 diabetes mellitus without complication, without long-term current use of insulin ([facility])- Primary Seasonal allergic rhinitis due to pollen Darcy albicans infection Obstructive sleep apnea syndrome Obstructive sleep apnea (adult) (pediatric) Essential hypertension ([facility]) Unspecified essential hypertension Stage 3a chronic kidney disease (HCC) ([facility]) Acquired hypothyroidism ([facility]) Unspecified hypothyroidism Encounter for immunization- Primary Type 2 diabetes mellitus without complication, without long-term current use of insulin ([facility]) Obstructive sleep apnea syndrome Obstructive sleep apnea (adult) (pediatric) Essential hypertension ([facility]) Unspecified essential hypertension Type 2 diabetes mellitus with stage 2 chronic kidney disease, without long-term current use of insulin ([facility]) Mixed hyperlipidemia ([facility]) Mixed hyperlipidemia Vaginal irritation Pruritus of genital organs Wellness examination- Primary Type 2 diabetes mellitus with diabetic polyneuropathy, without long-term current use of insulin ([facility]) Obstructive sleep apnea syndrome Obstructive sleep apnea (adult) (pediatric) Essential hypertension (CMS/HCC) Unspecified essential hypertension Stage 3a chronic kidney disease (HCC) ([facility]) Urgency incontinence Urge incontinence Acquired hypothyroidism ([facility]) Unspecified hypothyroidism Type 2 diabetes mellitus with stage 3a chronic kidney disease, without long-term current use of insulin (HCC) (CMS/HCC) Mixed hyperlipidemia (CMS/HCC) Mixed hyperlipidemia Type 2 diabetes mellitus with diabetic polyneuropathy, without long-term current use of insulin ([facility])- Primary Urinary frequency Obstructive sleep apnea syndrome [...] disease, without long-term current use of insulin ([facility]) documented in this encounter [facility] HealthcareEvaluation note* Diagnosis Type 2 diabetes mellitus without complication, without long-term current use of insulin ([facility])- Primary Seasonal allergic rhinitis due to pollen Darcy albicans infection Obstructive sleep apnea syndrome Obstructive sleep apnea (adult) (pediatric) Essential hypertension (CMS/HCC) Unspecified essential hypertension Stage 3a chronic kidney disease (HCC) ([facility]) Acquired hypothyroidism ([facility]) Unspecified hypothyroidism Encounter for immunization- Primary Type 2 diabetes mellitus without complication, without long-term current use of insulin ([facility]) Obstructive sleep apnea syndrome Obstructive sleep apnea (adult) (pediatric) Essential hypertension ([facility]) Unspecified essential hypertension Type 2 diabetes mellitus with stage 2 chronic kidney disease, without long-term current use of insulin ([facility]) Mixed hyperlipidemia ([facility]) Mixed hyperlipidemia Vaginal irritation Pruritus of genital organs Wellness examination- Primary Type 2 diabetes mellitus with diabetic polyneuropathy, without long-term current use of insulin (CMS/HCC) Obstructive sleep apnea syndrome Obstructive sleep apnea (adult) (pediatric) Essential hypertension (CMS/HCC) Unspecified essential hypertension Stage 3a chronic kidney disease (HCC) (CMS/HCC) Urgency incontinence Urge incontinence Acquired hypothyroidism ([facility]) Unspecified hypothyroidism Type 2 diabetes mellitus with stage 3a chronic kidney disease, without long-term current use of insulin (HCC) (CMS/HCC) Mixed hyperlipidemia (CMS/HCC) Mixed hyperlipidemia Type 2 diabetes mellitus with diabetic polyneuropathy, without long-term current use of insulin ([facility])- Primary Urinary frequency Obstructive sleep apnea syndrome [...] (CMS/HCC) Mixed hyperlipidemia Anxiety Anxiety state, unspecified Seborrheic keratosis- Primary Melanocytic nevus of trunk Benign neoplasm of skin of trunk, except scrotum Capillary angioma Nevus, non-neoplastic documented in this encounter [facility] HealthcareEvaluation note* Diagnosis Type 2 diabetes mellitus without complication, without long-term current use of insulin ([facility])- Primary Seasonal allergic rhinitis due to pollen Darcy albicans infection Obstructive sleep apnea syndrome Obstructive sleep apnea (adult) (pediatric) Essential hypertension (CMS/HCC) Unspecified essential hypertension Stage 3a chronic kidney disease (HCC) (CMS/HCC) Acquired hypothyroidism ([facility]) Unspecified hypothyroidism Encounter for immunization- Primary Type 2 diabetes mellitus without complication, without long-term current use of insulin (CMS/HCC) Obstructive sleep apnea syndrome Obstructive sleep apnea (adult) (pediatric) Essential hypertension (CMS/HCC) Unspecified essential hypertension Type 2 diabetes mellitus with stage 2 chronic kidney disease, without long-term current use of insulin ([facility]) Mixed hyperlipidemia ([facility]) Mixed hyperlipidemia Vaginal irritation Pruritus of genital organs Wellness examination- Primary Type 2 diabetes mellitus with diabetic polyneuropathy, without long-term current use of insulin (CMS/HCC) Obstructive sleep apnea syndrome Obstructive sleep apnea (adult) (pediatric) Essential hypertension (CMS/HCC) Unspecified essential hypertension Stage 3a chronic kidney disease (HCC) (CMS/HCC) Urgency incontinence Urge incontinence Acquired hypothyroidism ([facility]) Unspecified hypothyroidism Type 2 diabetes mellitus with stage 3a chronic kidney disease, without long-term current use of insulin (HCC) (CMS/HCC) Mixed hyperlipidemia ([facility]) Mixed hyperlipidemia Type 2 diabetes mellitus with [...] of insulin (CMS/HCC) documented in this encounter [facility] HealthcareEvaluation note* Diagnosis Type 2 diabetes mellitus without complication, without long-term current use of insulin ([facility])- Primary Seasonal allergic rhinitis due to pollen [...] without long-term current use of insulin (HCC) ([facility]) Mixed hyperlipidemia (CMS/HCC) Mixed hyperlipidemia Type 2 [...] Unspecified essential hypertension documented in this encounter [facility] HealthcareEvaluation note* Diagnosis Type 2 diabetes mellitus without complication, without long-term current use of insulin ([facility])- Primary Seasonal allergic rhinitis due to pollen Darcy albicans infection Obstructive sleep apnea syndrome Obstructive sleep apnea (adult) (pediatric) Essential hypertension (CMS/HCC) Unspecified essential hypertension Stage 3a chronic kidney disease (HCC) ([facility]) Acquired hypothyroidism ([facility]) Unspecified hypothyroidism Encounter for immunization- Primary Type 2 diabetes mellitus without complication, without long-term current use of insulin ([facility]) Obstructive sleep apnea syndrome Obstructive sleep apnea (adult) (pediatric) Essential hypertension ([facility]) Unspecified essential hypertension Type 2 diabetes mellitus with stage 2 chronic kidney disease, without long-term current use of insulin ([facility]) Mixed hyperlipidemia ([facility]) Mixed hyperlipidemia Vaginal irritation Pruritus of genital organs Wellness examination- Primary Type 2 diabetes mellitus with diabetic polyneuropathy, without long-term current use of insulin ([facility]) Obstructive sleep apnea syndrome Obstructive sleep apnea (adult) (pediatric) Essential hypertension ([facility]) Unspecified essential hypertension Stage 3a chronic kidney disease (HCC) ([facility]) Urgency incontinence Urge incontinence Acquired hypothyroidism ([facility]) Unspecified hypothyroidism Type 2 diabetes mellitus with stage 3a chronic kidney disease, without long-term current use of insulin (HCC) ([facility]) Mixed hyperlipidemia ([facility]) Mixed hyperlipidemia Type 2 diabetes mellitus with diabetic polyneuropathy, without long-term current use of insulin ([facility])- Primary Urinary frequency Obstructive sleep apnea syndrome Obstructive sleep apnea (adult) (pediatric) Essential hypertension ([facility]) Unspecified essential hypertension CABELLO (nonalcoholic steatohepatitis) Other chronic nonalcoholic liver disease Hypertensive chronic kidney disease with stage 1 through stage 4 chronic kidney disease, or unspecified chronic kidney disease ([facility]/HCC) Stage 3a chronic kidney disease (HCC) ([facility]) Acquired hypothyroidism ([facility]) Unspecified hypothyroidism Mixed hyperlipidemia ([facility]) Mixed hyperlipidemia Anxiety Anxiety state, unspecified Type 2 diabetes mellitus with diabetic polyneuropathy, without long-term current use of insulin ([facility]) documented in this encounter [facility] HealthcareEvaluation note* Diagnosis Type 2 diabetes mellitus without complication, without long-term current use of insulin ([facility])- Primary Seasonal allergic rhinitis due to pollen [...] without long-term current use of insulin (HCC) ([facility]) Mixed hyperlipidemia ([facility]) Mixed hyperlipidemia Type 2 diabetes mellitus with diabetic polyneuropathy, without long-term current use of insulin ([facility])- Primary Urinary frequency Obstructive sleep apnea syndrome Obstructive sleep apnea (adult) (pediatric) Essential hypertension (CMS/HCC) Unspecified essential hypertension CABELLO (nonalcoholic steatohepatitis) Other chronic nonalcoholic liver disease Hypertensive chronic kidney disease with stage 1 through stage 4 chronic kidney disease, or unspecified chronic kidney disease (CMS/HCC) Stage 3a chronic kidney disease (HCC) (CMS/HCC) Acquired hypothyroidism ([facility]) Unspecified hypothyroidism Mixed hyperlipidemia ([facility]) Mixed hyperlipidemia Anxiety Anxiety state, unspecified Type 2 diabetes mellitus with diabetic polyneuropathy, without long-term current use of insulin ([facility]) documented in this encounter [facility] HealthcareEvaluation note* Diagnosis Type 2 diabetes mellitus without complication, without long-term current use of insulin ([facility])- Primary Seasonal allergic rhinitis due to pollen Darcy albicans infection Obstructive sleep apnea syndrome Obstructive sleep apnea (adult) (pediatric) Essential hypertension (CMS/HCC) Unspecified essential hypertension Stage 3a chronic kidney disease (HCC) (CMS/HCC) Acquired hypothyroidism ([facility]) Unspecified hypothyroidism Encounter for immunization- Primary Type [...] (CMS/HCC) Mixed hyperlipidemia Anxiety Anxiety state, unspecified Mixed hyperlipidemia (CMS/HCC) Mixed hyperlipidemia documented in this encounter [facility] HealthcareHistory general Narrative - Reported* Type [...] CATARACTS REMOVED BILATERAL Hospitalization History see above Periscope Other History general Narrative - Reported* Type [...] CATARACTS REMOVED BILATERAL Hospitalization History see above Periscope Other Chief Complaint and Reason for Visit [...] Referral Specialty Diagnoses / Procedures Referred By Rasheeda billy Referred To Contact Ent - Otolaryngology Diagnoses Oral lesion Procedures CONSULT TO ENT OFFICE/OUTPATIENT [facility] MDM 60 MINUTES Elicia Cross, SLIVER MACHINE OPERATOR.POWDERMAN [address] [place] [address] Referral ID Status Reason Start Date Expiration Date V isits Requested Visits Authorized [id number] Closed PCP Requested Referral 10/11/2023 10/10/2024 1 1 Specialty Diagnoses / Procedures Referred By Rasheeda billy Referred To Contact Diagnoses Other specified hearing loss, unspecified ear Procedures HEARING TEST/AUDIOGRAM COMPRE AUDIOMETRY THRESHOLD EVAL SP RECOGNIJ Elicia Cross, SLIVER MACHINE OPERATOR.POWDERMAN [address] [place] [address] [facility] [address] [place] [address] Referral ID Status Reason Start Date Expiration Date Visits Requested Visits Authorized [id number] Authorized Auto-Generat ed Referral 06/14/2023 06/14/2024 1 1 Additional Source Comments REASON FOR VISIT (unrecogniz ed section and content) Specialty Diagnoses / Procedures Referred By Rasheeda billy Referred To Contact Diagnoses Other specified hearing loss, unspecified ear Procedures HEARING TEST/AUDIOGRAM COMPRE AUDIOMETRY THRESHOLD EVAL SP RECOGNIJ Elicia Cross, YAQUELIN.POWDERMAN [address] [place] [address] [facility] [address] [place] [address] Referral ID Status Reason Start Date Expiration Date V isits Requested Visits Authorized [id number] Closed Auto-Generate d Referral 06/14/2023 06/14/2024 1 1 Reason Comments Hearing Loss Specialty Diagnoses / Procedures Referred By Contac t Referred To Contact Physical Therapy Diagnoses DDD (degenerative disc disease), lumbar Procedures AR OFFICE/OUTPATIENT NEW HIGH MDM 60 MINUTES John Higgins, DO [address] [facility] [address] [place] [address] Morena Farr, PT [address] [facility] [address] [place] [address] Referral ID Status Reason Start Date Expiration Date Visits Requested Visits Authorized [id number] Authorized Consult and Treat 10/16/2023 04/13/2024 99 99 Reason Onset Date Comments Med Refill 11/19/2023 Reason Comments Appointment Reason Comments Consult Specialty Diagnoses / Procedures Referred By Contac t Referred To Contact Ent - Otolaryngology Diagnoses Oral lesion Procedures CONSULT TO ENT OFFICE/OUTPATIENT NEW HIGH MDM 60 MINUTES Elicia Cross, SLIVER MACHINE OPERATOR.POWDERMAN [address] [place] [address] Referral ID Status Reason Start Date Expiration Date V isits Requested Visits Authorized [id number] Closed PCP Requested Referral 10/11/2023 10/10/2024 1 1 Reason Comments Med Refill Reason Comments Skin Check Reason Onset Date Comments Med Refill 08/15/2024 Care Teams (unrecognized sec tion and content) Team Status: Inactive Member Role Status Dates Wendy Chinchilla MD Primary Care Provider Active Jignesh Sargent MD Attending Provider Active Team Status: Active Member Role Status Dates Wendy Chinchilla MD Primary Care Provider Active Catering And Events Manager Relationship Specialty Start Date End Date Wendy Chinchilla MD [address] [place] [address] PCP - [facility] 10/08/22 Wendy Chinchilla MD [address] [place] [address] PCP - General Family Medicine 02/23/23 Catering And Events Manager Relationship Specialty Start Date End Date Wendy Chinchilla MD [address] [place] [address] PCP - [facility] 10/08/22 Wendy Chinchilla MD [address] [place] [address] PCP - General Family Medicine 02/23/23 Catering And Events Manager Relationship Specialty Start Date End Date Wendy Chinchilla MD [address] [place] [address] PCP - [facility] 10/08/22 Wendy Chinchilla MD [address] [place] [address] PCP - General Family Medicine 02/23/23 Catering And Events Manager Relationship Specialty Start Date End Date Wendy Chinchilla MD [address] [place] [address] PCP - [facility] 10/08/22 Wendy Chinchilla MD [address] [place] [address] PCP - General Family Medicine 02/23/23 Catering And Events Manager Relationship Specialty Start Date End Date Wendy Chinchilla MD [address] [place] [address] PCP - [facility] 10/08/22 Wendy Chinchilla MD [address] [place] [address] PCP - General Family Medicine 02/23/23 Team [...] January 03, 2024 End: January 03, 2024 Catering And Events Manager Relationship Specialty Start Date End Date Wendy Chinchilla MD [address] [place] [address] PCP - [facility] 10/08/22 Wendy Chinchilla MD [address] [place] [address] PCP - General Family Medicine 02/23/23 Catering And Events Manager Relationship Specialty Start Date End Date Wendy Chinchilla MD [address] [place] [address] PCP - [facility] 10/08/22 Wendy Chinchilla MD [address] [place] [address] PCP - General Family Medicine 02/23/23 Catering And Events Manager Relationship Specialty Start Date End Date Wendy Chinchilla MD [address] [place] [address] PCP - [facility] 10/08/22 Wendy Chinchilla MD [address] [place] [address] PCP - General Family Medicine 02/23/23 Catering And Events Manager Relationship Specialty Start Date End Date Wendy Chinchilla MD [address] [place] [address] PCP - [facility] 10/08/22 Wendy Chinchilla MD [address] [place] [address] PCP - General Family Medicine 02/23/23 Catering And Events Manager Relationship Specialty Start Date End Date Wendy Chinchilla MD [address] [place] [address] PCP - [facility] 10/08/22 Wendy Chinchilla MD [address] [place] [address] PCP - General Family Medicine 02/23/23 Goals (unrecognized section and content) Goals may be documented in a n alternate section INFORMATION SOURCE (unrecogn ized section and content) DATE CREATED AUTHOR 11/30/2022 [facility] dical Specialist DATE CREATED AUTHOR AUTHOR'S ORGANIZ ATION 02/16/2023 [facility] DATE CREATED AUTHOR AUTHOR'S ORGANIZ ATION 03/07/2024 [facility] DATE CREATED AUTHOR AUTHOR'S ORGANIZ ATION 07/17/2024 [facility] DATE CREATED AUTHOR AUTHOR'S ORGANIZ ATION 07/22/2024 [facility] Specialists [facility] DATE CREATED AUTHOR AUTHOR'S ORGANIZ ATION 09/06/2024 [facility] Source Comments (unrecognize d section and content) In the event this informatio n is protected by the Federal Confidentiality of Alcohol and Drug Abuse Patient Records regulations: The Federal rules restrict any use of the information to criminally investigate or prosecute any alcohol or drug abuse patient.[facility] the event this information is protected by the Federal Confidentiality of Alcohol and Drug Abuse Patient Records regulations: The Federal rules restrict any use of the information to criminally investigate or prosecute any alcohol or drug abuse patient.[facility] the event this information is protected by the Federal Confidentiality of Alcohol and Drug Abuse Patient Records regulations: The Federal rules restrict any use of the information to criminally investigate or prosecute any alcohol or drug abuse patient.[facility] the event this information is protected by the Federal Confidentiality of Alcohol and Drug Abuse Patient Records regulations: The Federal rules restrict any use of the information to criminally investigate or prosecute any alcohol or drug abuse patient.[facility] the event this information is protected by the Federal Confidentiality of Alcohol and Drug Abuse Patient Records regulations: The Federal rules restrict any use of the information to criminally investigate or prosecute any alcohol or drug abuse patient.[facility] FOR RECORDS PERTAINING TO PATIENTS WHO [...] BE BASED ON THE PRIMARY CLINICAL RECORDS. [facility] [employer] [facility]. provides no warranty or guarantee of the accuracy or completeness of information in this document.
== END 2024-09-10 20:41 | disposition home or self-care (01) ==
LOC: SLEEP 20:40
PROVIDERS: PCP Family Medicine; Visit Provider Family Medicine
DX: G47.33 Obstructive sleep apnea (adult) (pediatric) (principal)
CPT/HCPCS: 95811

== ENCOUNTER 2025-01-28 10:59 | Outpatient (OUT) | payer MEDICARE, SELFPAY ==
[2025-01-28 11:27] LABS: Hematocrit 47.8 % (36.0-48.0); Mean Corpuscular HGB Conc 33.5 g/dL (29.9-35.2); Mean Corpuscular Hemoglobin 29.4 pg (26.7-34.0); Mean Corpuscular Volume 87.9 fL (81.0-99.0); Mean Platelet Volume 9.3 fL (9.5-13.5); Platelet Count 240 10^3/uL (150-450); Red Blood Count 5.44 10^6/uL (4.20-5.40); Red Cell Distribution Width 13.2 % (11.0-15.0); White Blood Count 8.3 10^3/uL (4.0-11.0)
[2025-01-28 11:35] LABS: Creatinine Urine Random 31.01 mg/dL (20.00-300.00); Total Protein Urine Random <6.0 mg/dL (<=11.9)
[2025-01-28 11:39] LABS: Albumin Level 4.1 g/dL (3.4-5.0); Anion Gap 12.1; BUN Creatinine Ratio 17.3; Calcium 9.5 mg/dL (8.5-10.1); Chloride 101 mmol/L (98-107); Estimated GFR (African America >60 (>=60 mL/min/1.73m^2); Estimated GFR (Non-African Ame 52 (>=60 mL/min/1.73m^2); Glucose 137 mg/dL (74-106); Potassium 4.1 mmol/L (3.5-5.1); Sodium 139 mmol/L (136-145)
[2025-01-28 11:43] LABS: Bilirubin Urine NEGATIVE (NEGATIVE); Blood Urine TRACE-I (NEGATIVE); Clarity Urine CLEAR (CLEAR); Color Urine LT. YELLOW (YELLOW); Glucose Urine UA >=1000 mg/dL (NEGATIVE); Ketones Urine NEGATIVE (NEGATIVE); Leukocyte Esterase Urine TRACE (NEGATIVE); Nitrite Urine NEGATIVE (NEGATIVE); Protein Urine NEGATIVE (NEG/TRACE); Urobilinogen Urine 0.2 EU/dL (0.2-1.0)
[2025-01-28 12:00] LABS: Bacteria Urine SMALL #/HPF (NONE SEEN); Cast Seen? NONE SEEN #/LPF (NONE SEEN); Crystals Seen? None Seen #/HPF (None Seen); Mucus Urine TRACE (NONE SEEN); RBC Urine 0-2 #/HPF (0-2); Squamous Epithelial Cell Urine FEW #/LPF (NONE/RARE); Urine Culture Indicated YES-FRMC
[2025-01-29 11:10] LABS: PTH, Intact 27 pg/mL (15-65)
== END 2025-01-28 11:00 | disposition home or self-care (01) ==
LOC: LAB 11:02
PROVIDERS: PCP Family Medicine; Visit Provider Internal Medicine
DX: E79.0 Hyperuricemia without signs of inflammatory arthritis and tophaceous disease (principal); R31.29 Other microscopic hematuria; E55.9 Vitamin D deficiency, unspecified; I12.9 Hypertensive chronic kidney disease with stage 1 through stage 4 chronic kidney disease, or unspecified chronic kidney disease; E11.22 Type 2 diabetes mellitus with diabetic chronic kidney disease; N18.30 Chronic kidney disease, stage 3 unspecified
CPT/HCPCS: 36415; 80069; 81001; 82306; 82570; 83735; 83970; 84156; 84550; 85027; 87086

== ENCOUNTER 2025-07-20 13:45 | Outpatient (RCR) | payer MEDICARE, SELFPAY | END 2025-09-15 11:43 | disposition home or self-care (01) | LOC: PT 13:45 | PROVIDERS: PCP Family Medicine; Visit Provider Neurological Surgery | DX: M50.122 Cervical disc disorder at C5-C6 level with radiculopathy (principal); M54.50 Low back pain, unspecified | CPT/HCPCS: 97110; 97112; 97140; 97163 ==

== ENCOUNTER 2025-07-27 09:55 | Outpatient (OUT) | payer MEDICARE, SELFPAY ==
--- OUTSIDE RECORDS SUMMARY | 2025-07-27 10:04 | XMS_ITS | CCD ---
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 Name Role Phone Ronald Julien Unavailable Jignesh Sargent Unavailable MD Wendy Chinchilla Primary Care Provider [phone] MD Jignesh Sargent Attending Provider [phone] RONALD, JULIEN Attending Unavailable RONALD, JULIEN Consulting [...] BLANCA Attending Unavailable ELICIA CROSS Referring Unavailable Wendy Chinchilla MD Primary Care Provider [phone] CRISTINE WIN Attending Unavailable WENDY CHINCHILLA Referring Unavailable WENDY CHINCHILLA Primary Care Unavailable WENDY CHINCHILLA Referring Unavailable WENDY CHINCHILLA Primary Care Unavailable RENÉE WENDY G Referring Unavailable RENÉE, WENDY G Primary Care Unavailable RENÉE, WENDY G Referring Unavailable RENÉE, WENDY G Primary Care Unavailable CRISTINE WIN Admitting Unavailable CRISTINE WIN Attending Unavailable RENÉE, WENDY G Referring Unavailable RENÉE, WENDY G Primary Care Unavailable NON STAFF Primary Care Provider Unavailwiley e Mt Hernandez APRN Attending Provider Fibroscan, Temporary Attending Provider Unavaila Mt Javier APRN Referring Provider Rachel Chinchilla MD, Wendy Beal Primary Care Pr ovider Fibroscan, Temporary Other Provider Unavailable Jignesh Sargent MD Attending Provider WENDY CHINCHILLA Referring Unavailable RENÉE, WENDY G Primary Care Unavailable RENÉE, WENDY G Primary Care Unavailable STEVEN PADILLA Attending Unavailable RENÉEWENDY G Primary Care Unavailable CRISTINE GAR Attending Unavailab MEHRDAD Masters Admitting Unavailable MEHRDAD WILSON Attending Unavailable MEHRDAD WILSON Referring Unavailable RENÉEWENDY Primary Care Unavailable Michele Armijo DO Attending Provider LUZ CHINCHILLANIFER Referring Unavailable MORENA FARR Attending Unavailable RENÉE, WENDY Referring Unavailable VAISHALI HENDRICKS Attending Unavailable RENÉE, WENDY Referring Unavailable BRVAISHALI ANGELA Attending Unavailable RENÉE, WENDY Referring Unavailable RENÉE, WENDY Referring Unavailable BARB RICHARDS Attending Unavailable BARB RICHARDS Referring Unavailable VAISHALI HENDRICKS Attending Unavailable RENÉE, WENDY Referring Unavailable MELISSA QUESADA Attending Unavailable RENÉE, WENDY Referring Unavailable VAISHALI HENDRICKS Attending Unavailable RENÉE, WENDY Referring Unavailable RENÉE, WENDY Referring Unavailable BRVAISHALI ANGELA Attending Unavailable RENÉE, WENDY Referring Unavailable BRIAN BRYANT Attending Unavailable ELMER WELLS Attending Unavailable RENÉE, WENDY Attending Unavailable RENÉE, WENDY Attending Unavailable RUSBRIAN AUGUSTINE Attending Unavailable RUSBRIAN AUGUSTINE Referring Unavailable RENÉE, WENDY Attending Unavailable JR ALMA., LAYA Minaya Attending Unavaila ble STEPMAYLIN, JR., LAYA Minaya Referring Unavaila ble STEPANIC, JR., LAYA Minaya Referring Unavaila ble RICHARDS, BARB Fields Attending Unavailable RICHARDS, BARB Fields Referring Unavailable RICHARDS, BARB Fields Referring Unavailable RENÉE, WENDY Attending Unavailable RICHARDS, BARB Fields Referring Unavailable STEPMAYLIN, ., ALYA Minaya Attending Unavaila ble RENÉE, WENDY Attending Unavailable RENÉE, WENDY Attending Unavailable MORENA FARR Attending Unavailable RENÉE, WENDY Referring Unavailable ZANDER CLINE Attending Unavailable RENÉE, WENDY Referring Unavailable GRACY MORGAN Attending Unavailable RENÉE, WENDY Referring Unavailable KELBLEYMELISSA Attending Unavailable RENÉE, WENDY Referring Unavailable KELBLEYMELISSA Attending Unavailable RENÉE, WENDY Referring Unavailable KIRK RHODES Attending Unavailab SATISH Lyons Attending Unavailable VAISHALI HENDRICKS Attending Unavailable RENÉE, WENDY Referring Unavailable BRINKVAISHALI Attending Unavailable RENÉE, WENDY Referring Unavailable KELBLEYMELISSA Attending Unavailable RENÉE, WENDY Referring Unavailable BRVAISHALI ANGELA Attending Unavailable RENÉE, WENDY Referring Unavailable BRINKVAISHALI Attending Unavailable RENÉE, WENDY Referring Unavailable SATISH KOO Attending Unavailable Mt Hernandez Referring Unavailable Jedsmaribeth Chinchilla Wendy Emigdio Primary Care Un available Jignesh Sargent Admitting Unavailable Jignesh Sargent Attending Unavailable [place] Renée, Wendy L Primary Care Un available Bialaskwilma Michele N Admitting Unavailable Bialaskwilma Michele N Attending Unavailable [place] Renée, Wendy L Primary Care Un available Mt Hernandez Admitting Unavailable Mt Hernandez Attending Unavailable RonaldJulien boyd Admitting Unavailable RonaldJulien boyd Attending Unavailable NON STAFF Primary Care Unavailable Mt Hernandez Admitting Unavailable ScMt brady Attending Unavailable Ethan MERCADO Attending Unavailable WENDY CHINCHILLA Referring Unavailable Allergies Allergy Classification Reported Allergen(s) Allergy Type Date of Onset Reaction(s) Facility (20 sources) Wound Dressing Adhesive Drug Intolerance 7 Rash [facility] (3 sources) Penicillins Propensity to adverse reactions 7 [facility] (6 sources) Adhesive agent; Translations: [ADHESIVE] Propensity to adverse reactions to drug 7 Rash [facility] Medications Current Medications Medication Drug Class(es) Dates Sig (Normalized) Sig (Original) amoxicillin 500 mg oral tablet (20 sources) Penicillin-class Antibacterial Start: 12-31-2024 take 4 tablets by mouth once at mealtime amoxicillin (Amoxil) 500 MG tablet Indications: History of bilateral knee replacement 4 tabs PO once 30-60 mins before procedure with food 4 tablet 3 12/31/2024 Active Start: 10-09-2023 End: 10-14-2024 take 4 tablets by mouth once at mealtime amoxicillin (Amoxil) 500 MG tablet Indications: History of joint replacement, unspecified joint 4 tabs PO once 30-60 mins before procedure with food 4 tablet 3 10/09/2023 10/14/2024 Discontinued amoxicillin 875 mg / clavulanate 125 mg oral tablet (14 sources) Penicillin-class Antibacterial Start: 10-14-2024 End: 10-24-2024 take 1 tablet by mouth in the morning amoxicillin-clavulanate (Augmentin) 875-125 MG tablet Indications: Acute non-recurrent pansinusitis Take 1 tablet (875 mg) by mouth in the morning and 1 tablet (875 mg) before bedtime. Do all this for 10 days. 20 tablet 10/14/2024 10/24/2024 Active aspirin 81 mg chewable tablet (7 sources) Platelet Aggregation Inhibitor, Nonsteroidal Anti-inflammatory Drug take 1 tablet by mouth every twenty-fou r hours Aspirin 81 MG 1 tablet Orally Once a day Active atorvastatin 10 mg oral tablet (20 sources) HMG-CoA Reductase Inhibitor Start: 10-28-2024 take 1 tablet by mouth once daily atorvastatin (Lipitor) 10 MG tablet Indications: Mixed hyperlipidemia Take 1 tablet (10 mg) by mouth Daily 100 tablet 10/28/2024 Active Start: 10-17-2022 End: 08-22-2024 take 1 tablet by mouth once daily Start: 10-17-2022 atorvastatin ( LIPITOR) 10 mg tablet Take by mouth every 24 hours. 0 10/17/2022 Active Comment on above: Take by mouth every 24 hours. bisacodyl 5 mg delayed release oral tablet (2 sources) Stimulant Laxative Start: take 2 tablets by mouth once bisacodyL (DULCOLAX, BISACODYL,) 5 mg EC tablet Indications: Portal venous hypertension (CMS-HCC) , Family history of colon cancer , Abnormal liver enzymes , Gastroesophageal reflux disease, unspecified whether esophagitis present , Family history of esophageal cancer Take 2 tablets (10 mg total) by mouth See Admin Instructions. Take per written instructions 2 tablet 01/28/2025 Active Blood Glucose Monitoring Suppl (PeerJio Reflect) w/Device kit (20 sources) Start: Blood Glucose Monitoring Suppl (PeerJio Reflect) w/Device kit 11/04/2022 Active Start: 11-04-2022 Blood Glucose Monitoring Suppl (PureForge Verio Reflect) w/Device kit 24 hr buPROPion hydrochloride 150 mg extended release oral tablet (1 source) Aminoketone take 1 tablet by mouth every twenty-four hours buPROPion HCl ER (XL) 150 MG 1 tablet in the morning Orally Once a day Active Calcium 7565-4753 MG-UNIT (4 sources) take 1 tablet by mouth once daily Calcium 0636-8156 MG-UNIT 1 tablet Orally Once a day Active citalopram 20 mg oral tablet (3 sources) Serotonin Reuptake Inhibitor take 1 tablet by mouth every twenty-four hours Citalopram Hydrobromide 20 MG 1 tablet Orally Once a day Active clotrimazole 10 mg/ml topical cream (20 sources) Azole Antifungal Start: 10-28-19 clotrimazole (Lotrimin) 1 % cream Indications: Rash Apply topically 2 (two) times a day 30 g 10/28/2024 Active Start: 04-30-2024 clotrimazole ( Lotrimin) 1 % cream 04/30/2024 Active Cranberry (20 sources) Non-Standardized Food Allergenic Extract, Non-Standardized Plant Allergenic Extract Start: 02-19-2024 take 1 capsule by mouth twice daily at mealtime Start: 02-19-2024 take 1 capsule by [facility] twice daily at mealtime Cranberry 500 mg capsule Active 500 MG PO Twice daily February 19, 2024 12:00am administer with meals Complies with drug therapy Start: 02-19-2024 take 1 capsule by mo uth twice daily at mealtime Cranberry 500 mg capsule Active 500 MG PO Twice daily February 19, 2024 12:00am administer with meals take 1 capsule by mo uth in the morning cranberry 400 mg capsule Take 1 capsule (400 mg total) by mouth in the morning. Active take 1 capsule by mo uth in the morning, then take 1 capsule by mouth at bedtime cranberry 400 mg capsule Take 1 capsule (400 mg total) by mouth in the morning and 1 capsule (400 mg total) before bedtime. Active Cranberry 425 MG capsule Active Cranberry 425 MG capsule take 1 capsule by mo uth once daily Cranberry 1000 MG 1 CAPSULE Orally once a day Active Cranberry 400 mg cap Take 400 mg by mouth. 0 Active take 2 capsules by m outh once daily Cranberry 425 MG 2 Capsule Orally once a day Active Comment on above: Take 400 mg by mouth . dapagliflozin 10 mg oral tablet (20 sources) Sodium-Glucose Cotransporter 2 Inhibitor Start: 03-19-2025 Farxiga 10 MG Indications: Type 2 diabetes mellitus without complication, without long-term current use of insulin ([facility]) TAKE 1 TABLET DAILY 90 tablet 1 03/19/2025 Active Start: 02-19-2024 End: 10-27-2024 take 1 tablet by mouth once daily Start: 11-20-2023 take 1 tablet by sunni in the morning dapagliflozin (Farxiga) 10 MG Indications: Type 2 diabetes mellitus without complication, without long-term current use of insulin ([facility]/HCC) Take 1 tablet (10 mg) by mouth in the morning. 90 tablet 0 11/20/2023 Active Start: 05-02-2023 End: 11-21-2023 FARXIGA 10 mg tablet Docosahexaenoate (4 sources) DOCOSAHEXAENOIC ACID ORAL Take by mouth as directed. 0 Active Comment on above: Take by mouth as dir ected. fluconazole 100 mg oral tablet (6 sources) Azole Antifungal Start: End: take 1 tablet by mouth in the morning fluconazole (DIFLUCAN) 100 mg tablet Take 1 tablet (100 mg total) by mouth in the morning for 5 days. 5 tablet 03/04/2025 03/09/2025 Active Start: 10-16-2023 fluconazole (D iflucan) 150 MG tablet fluocinonide 0.5 mg/ml topical cream (20 sources) Corticosteroid Start: 10-16-2024 fluocinonide (Lidex) 0.05 % cream Indications: Other atopic dermatitis Apply to rash up to twice a day when flared, do not use one the face, groin, or underarms, 30 day supply 30 g 11 10/16/2024 Active fluticasone propionate 0.05 mg/actuat metered dose nasal spray (20 sources) Corticosteroid Start: 06-05-2025 End: 06-05-2026 take 1 spray(s) nasal route once daily fluticasone (Flonase) 50 MCG/ACT nasal spray Indications: Nasal drainage Administer 1 spray into each nostril Daily Shake gently. Before first use, prime pump. After use, clean tip and replace cap. 32 g 1 06/05/2025 06/05/2026 Active Start: 02-22-2024 End: 06-05-2025 take 1 spray(s) nasal route once daily fluticasone (Flonase) 50 MCG/ACT nasal spray Indications: Nasal drainage USE 1 SPRAY IN BOTH NOSTRILS ONCE DAILY 32 g 1 02/22/2024 06/05/2025 Discontinued (Reorder) Start: 02-19-2024 take 1 spray(s) nasa l route once daily Start: 11-04-2022 fluticasone (F LONASE) 50 mcg/actuation nasal spray 1 (one) time each day at the same time. 0 11/04/2022 Active take 1 spray(s) nasa l route in the morning fluticasone (FLONASE) 50 mcg/actuation nasal spray Administer 1 spray into each nostril in the morning. Active fluticasone (Bigg nase) 50 MCG/ACT nasal [...] oral tablet (20 sources) Loop Diuretic Start: 07-26-2017 End: 10-27-2024 take 1 tablet by mouth once daily furosemide (Lasix) 20 MG tablet Indications: Primary hypertension Take 1 tablet (20 mg) by mouth Daily 100 tablet 1 10/28/2024 Active take 1 tablet by sunni twice daily as needed furosemide (LASIX) 20 mg tablet Take 1 tablet (20 mg total) by mouth 2 (two) times a day as needed. CKD stage III Active 12 hr guaiFENesin 600 mg extended release oral tablet (8 sources) Start: 09-16-2024 End: 10-06-2024 take 2 tablets by mouth in the morning, then take 2 tablets by mouth every twelve hours at bedtime guaiFENesin (Mucinex) 600 MG 12 hr tablet Indications: Sinus congestion Take 2 tablets (1,200 mg) by mouth in the morning and 2 tablets (1,200 mg) before bedtime. Do all this for 20 days. Do not crush, chew, or split.. 80 tablet 09/16/2024 10/06/2024 Active Hair Skin & Nails Advanced - (1 source) Hair Skin & Nail s Advanced - as directed Orally Active HAIR, SKIN AND NAILS, BIOTIN, ORAL (8 sources) HAIR, SKIN AND N AILS, BIOTIN, ORAL Take by mouth. Active HAIR, SKIN AND N AILS, BIOTIN, ORAL Take by mouth as directed. 0 Active Comment on above: Take by mouth as dir ected. ibuprofen 200 mg oral tablet (20 sources) Nonsteroidal Anti-inflammatory Drug take 1 tablet by mouth every six hours as needed ibuprofen 200 MG tablet Take 200 mg by mouth every 6 (six) hours if needed Active Y-Dopfgcldvwjh-Tqc ae-B12-B6 (Metanx) 3-90.314-2-35 MG capsule (20 sources) Start: S-Nfevhbpseovi-Bnztj-B 12-B6 (Metanx) 3-90.314-2-35 MG capsule Indications: Diabetic polyneuropathy associated with type 2 diabetes mellitus (HCC) TAKE 1 CAPSULE BY MOUTH TWO TIMES A DAY DIRECTED 180 capsule 3 10/24/2024 Active Start: 10-24-2024 L-Methylfolate -Xscfp-R06-P5 (Metanx) 3-90.314-2-35 MG capsule Indications: Diabetic polyneuropathy associated with type 2 diabetes mellitus (CMS/HCC) TAKE 1 CAPSULE BY MOUTH TWO TIMES A DAY DIRECTED 180 capsule 3 10/24/2024 Active Start: 08-17-2023 End: 10-24-2024 R-Whzpmaidibmo-Ylwzg-B12-B6 (Metanx) 3-90.314-2-35 MG capsule Indications: Diabetic polyneuropathy associated with type 2 diabetes mellitus (CMS/HCC) TAKE 1 CAPSULE BY MOUTH TWO TIMES A DAY DIRECTED 180 capsule 3 08/17/2023 10/24/2024 Discontinued Start: 08-17-2023 L-Methylfolate -Fjhud-R07-H5 (Metanx) 3-90.314-2-35 MG capsule Indications: Diabetic polyneuropathy associated with type 2 diabetes mellitus (CMS/HCC) TAKE 1 CAPSULE BY MOUTH TWO TIMES A DAY DIRECTED 180 capsule 3 08/17/2023 Active Vlltpjhgd-Q3-Zqt19-Algal Oil (Metanx (Algal Oil)) 3 mg-35 mg-2 mg -90.314 mg capsule (8 sources) Start: 02-19-2024 take 1 capsule by [facility] twice daily Start: 02-19-2024 take 1 capsule by [facility] twice daily Ujycaihhq-R7-Bzu60-Algal Oil (Metanx (Algal Oil)) 3 mg-35 mg-2 mg -90.314 mg capsule Active 1 CAP PO Twice daily February 19, 2024 12:00am Complies with drug therapy Start: 02-19-2024 take 1 capsule by [facility] twice daily Ttpvmfzht-R7-Pkl29-Algal Oil (Metanx (Algal Oil)) 3 mg-35 mg-2 mg -90.314 mg capsule Active 1 CAP PO Twice daily February 19, 2024 12:00am qjunujoha-M1-srM86-algal oil (METANX, ALGAL OIL,) 3 mg-35 mg-2 mg -90.314 mg cap (4 sources) xzbmxmrri-P5-fgT 12-algal oil (METANX, ALGAL OIL,) 3 mg-35 mg-2 mg -90.314 mg cap Take by mouth as directed. 0 Active Comment on above: Take by mouth as dir ected. agfysqvmu-T2-zzO26-algal oil (METANX, ALGAL OIL,) 3 mg-35 mg-2 mg -90.314 mg capsule (4 sources) take 1 capsule by mouth in the morning iydhvknih-Z3-pvT62-algal oil (METANX, ALGAL OIL,) 3 mg-35 mg-2 mg -90.314 mg capsule Take 1 capsule by mouth in the morning. Active levothyroxine sodium 0.1 mg oral tablet (20 sources) l-Thyroxin e Start : 03-31 levothyroxine (Synthroid, Levoxyl) 100 MCG tablet Indications: Acquired hypothyroidism TAKE 1 TABLET DAILY 90 tablet 1 03/31/2025 Active Start: 07-13-2023 End: 10-27-2024 take 1 tablet by mouth once daily Levothyroxine 100 mcg tablet Discontinued 1 TAB PO Daily February 19, 2024 12:00am August 26, 2024 10:42am FreeTextSi tablet Orally Once a day; Note: Source Status: Taking; Provider: Ronald Victoria ( ) levothyroxine (S YNTHROID, LEVOTHROID) 100 MCG tablet Take 75 mcg by mouth in the morning. Active take 1 tablet by sunni th every twenty-four hours Levothyroxine Sodium 100 MCG 1 tablet Orally Once a day Active lisinopril 2.5 mg oral tablet (20 sources) Angiotensin Converting Enzyme Inhibitor Start: 03-19-2025 lisinopril 2.5 MG tablet Indications: Primary hypertension TAKE 1 TABLET DAILY 90 tablet 1 03/19/2025 Active Start: 08-14-2022 End: 10-27-2024 take 1 tablet by mouth once daily mecobal/levomefolat Ca/B6 ph os (METANX ORAL) (4 sources) take 1 capsule by mouth at bedtime mecobal/levomefolat Ca/B6 phos (METANX ORAL) Take 1 capsule by mouth in the morning and at bedtime. Supplement Active mecobal/levomefo lat Ca/B6 phos (METANX ORAL) Take by mouth. Active Metanx 3-90.314-2-35 MG (1 source) Metanx 3-90.314- 2-35 MG as directed Orally TWICE A DAY Active metFORMIN hydrochloride 500 mg oral tablet (20 sources) Biguanide Start: 10-28-2024 End: 01-09-2025 metFORMIN (Glucophage) 500 MG tablet Indications: Type 2 diabetes mellitus with stage 2 chronic kidney disease, without long-term current use of insulin (HCC) TAKE 1 TABLET EVERY MORNINGAND 1 TABLET EVERY EVENING WITH MEALS 180 tablet 1 01/09/2025 Active Start: 08-04-2023 End: 07-28-2024 take 1 tablet by mouth twice daily 24 hr metoprolol succinate 25 mg extended release oral tablet (7 sources) beta-Adrenergic Sarmad take 1 tablet by mouth every twenty-four hours Metoprolol Succinate ER 25 MG 1 tablet Orally Once a day Active Multiple Vitamins-Minerals (Womens Multi Vitamin & Mineral) tablet (20 sources) Multiple Vitamins-Minerals (Womens Multi Vitamin & Mineral) tablet Active Multiple Vitamin s-Minerals (Womens Multi Vitamin & Mineral) tablet Xxqivwlm-Jbn-Isitljx-K-Herb2 89 (Alive Women's 50 Plus Ultra) 800 mcg DFE- 150 mcg tablet (8 sources) Start: 02-19-2024 take 1 tablet by mouth once daily Start: 02-19-2024 take 1 tablet by sunni th once daily Ztzfleoc-Dnk-Fgcaijc-K-Ejoy680 (Alive Wo men's 50 Plus Ultra) 800 mcg DFE- 150 mcg tablet Active 1 TAB PO daily February 19, 2024 12:00am Complies with drug therapy Start: 02-19-2024 take 1 tablet by sunni th once daily Dcbyojwu-Xkd-Peeefrb-K-Wllq077 (Alive Wo men's 50 Plus Ultra) 800 mcg DFE- 150 mcg tablet Active 1 TAB PO daily February 19, 2024 12:00am Multivitamin capsule (4 sources) take 1 capsule by mouth once daily in the morning Multivitamin capsule Take 1 capsule by mouth every morning. 0 Active Comment on above: Take 1 capsule by mo ohh every morning. multivitamin capsule (4 sources) take 1 capsule by mouth in the morning multivitamin capsule Take 1 capsule by mouth in the morning. Active Multivitamin preparation (6 sources) Multivitamin - O rally Active [place] 3 (4 sources) [place] 3 Active omega 2-odd-bxm-fish oil (Fish OiL) 300-1,000 mg capsule (4 sources) take 300-1000 mg by mouth in the morning omega 3-tlc-icp-fish oil (Fish OiL) 300-1,000 mg capsule Indications: hypertriglyceridemia Take 1 capsule by mouth in the morning. Indications: high amount of triglyceride in the blood. Active omega 3-dha-epa- fish oil (Fish OiL) 300-1,000 mg capsule Take by mouth. Active [place]-3 Fatty Acids 500 mg capsule (8 sources) Start: 02-19-2024 take 1 capsule by [facility] once daily Start: 02-19-2024 take 1 capsule by [facility] once daily [place]-3 Fatty Acids 500 mg capsule Active 500 MG PO Daily February 19, 2024 12:00am Complies with drug therapy Start: 02-19-2024 take 1 capsule by [facility] once daily [place]-3 Fatty Acids 500 mg capsule Active 500 MG PO Daily February 19, 2024 12:00am 24 hr oxybutynin chloride 10 mg extended release oral tablet (20 sources) Cholinergic Muscarinic Antagonist Start: 05-08-2025 take 1 tablet by mouth once daily oxybutynin XL (Ditropan-XL) 10 MG 24 hr tablet Indications: Urgency of urination Take 1 tablet by mouth once a day 90 tablet 3 05/22/2025 Active Start: 12-03-2023 End: 05-22-2025 take 1 tablet by mouth once daily Oxybutynin Chloride 15 mg tablet extended release 24hr Discontinued 15 MG PO Daily February 19, 2024 12:00am May 08, 2025 9:27am Start: 08-21-2023 take 1 tablet by [facility] once daily oxybutynin XL (Ditropan-XL) 15 MG 24 hr tablet Indications: Urgency of urination Take 1 tablet by mouth once a day 90 tablet 3 08/21/2023 Active Start: 08-04-2023 oxybutynin ER (DITROPAN XL) 10 mg 24 hr tablet Start: 05-02-2023 take 1 tablet by sunni every twenty-four hours in the morning oxybutynin XL (DITROPAN-XL) 10 mg 24 hr tablet Indications: urinary urgency Take 15 mg by mouth in the morning. Indications: urinary urgency, or the sudden urge to urinate. 05/02/2023 Active take 1 tablet by sunni every twenty-four hours oxyBUTYnin Chloride ER 10 MG 1 tablet Orally Once a day Active polyethylene glycol 3350 560578 mg / potassium chloride 2970 mg / sodium bicarbonate 6740 mg / sodium chloride 5860 mg / sodium sulfate 34660 mg powder for oral solution (20 sources) Osmotic Laxative Start: 01-28-2025 take 4000 mL by mouth once GaviLyte-G 236 g solution Take 4,000 mL by mouth once for 1 dose. Take per written instructions given at office for colonoscopy preparation 01/28/2025 Active Start: 01-28-2025 End: 01-28-2025 polyethylene glycol (GOLYTEL Y) 236-22.74-6.74 -5.86 gram solution Indications: Portal venous hypertension (CMS-HCC) , Family history of colon cancer , Abnormal liver enzymes , Gastroesophageal reflux disease, unspecified whether esophagitis present , Family history of esophageal cancer Take 4,000 mL by mouth once for 1 dose. Take per written instructions given at office for colonoscopy preparation 4000 mL 01/28/2025 01/28/2025 Active prednisoLONE acetate 10 mg/ml ophthalmic suspension (13 sources) Corticosteroid Start: 05-12-2025 prednisoLONE acetate (Pred-Forte) 1 % ophthalmic suspension instill 1 DROP IN BOTH EYES FOUR TIMES DAILY FOR 7 DAYS then instill 1 DROP IN BOTH EYES TWICE DAILY FOR 7 DAYS then stop 05/12/2025 Active semaglutide 7 mg oral tablet (20 sources) Start: 03-17-2025 End: 06-15-2025 Rybelsus 7 MG tablet Indications: Type 2 diabetes mellitus with stage 3a chronic kidney disease, without long-term current use of insulin ([facility]) TAKE 1 TABLET IN THE MORNING BEFORE A MEAL 90 tablet 05/29/2025 Active triamcinolone acetonide 0.001 mg/mg oral paste [...] Womens Multivitamin - as directed Orally Active Xdemvy 0.25 % solution (13 sources) Start: 05-21-2025 take 1 drop(s) into the eye(s) twice daily Xdemvy 0.25 % solution INSTILL 1 DROP IN BOTH EYES TWICE DAILY FOR 6 WEEKS 05/21/2025 Active Completed/Discontinued Medications Medication Drug Class(es) Dates Sig (Normalized) Sig (Original) Biotin (8 sources) Start: 02-19-2024 End: 08-26-2024 take 1 ug by mouth once daily Biotin (Hair, Skin And Nails (Biotin)) 10,000 mcg tablet,chewable Discontinued 1 MCG PO daily February 19, 2024 12:00am August 26, 2024 10:40am calcium carbonate 1500 mg oral tablet (10 sources) Start: 12-03-2023 End: 06-13-2024 take 1 tablet by mouth once daily calcium carbonate 1500 (600 Ca) MG tablet Indications: Menopausal and perimenopausal disorder Take 1 tablet (1,500 mg) by mouth Daily 200 tablet 1 12/03/2023 06/13/2024 Discontinued (Therapy completed) calcium carbonat e 1500 (600 Ca) MG tablet every 12 (twelve) hours. 0 Active calcium carbonate 600 mg / cholecalciferol 0.01 mg oral tablet (20 sources) Vitamin D Start: 02-19-2024 End: 09-16-2024 Calcium Carb-Cholecalciferol 600-10 MG-MCG tablet 1 tablet 02/19/2024 09/16/2024 Discontinued (Therapy completed) Start: 02-19-2024 End: 08-26-2024 take 1 tablet by mouth once daily Calcium Carbonate-Vitamin D3 (Calcium With Vitamin D) 600 mg-10 mcg (400 unit) tablet Discontinued 1 TAB PO Daily February 19, 2024 12:00am August 26, 2024 11:03am calcium citrate 250 mg / ergocalciferol 100 mg oral tablet (7 sources) Provitamin D2 Compound End: 02-13-2025 take 1 tablet by mouth once in the morning calcium citrate-vitamin D2 250 mg-2.5 mcg (100 unit) per tablet Take 1 tablet by mouth in the morning. 02/13/2025 Discontinued (Therapy completed) take 1 tablet by sunni th once daily in the morning Calcium Citrate-Vitamin D2 250 mg-2.5 mc g (100 unit) tab Take 1 tablet by mouth every morning. 0 Active Comment on above: Take 1 tablet by sunni th every morning. cranberry fruit (CRANBERRY) 450 mg tablet (3 sources) End: 02-13-2025 cranberry fruit (CRANBERRY) 450 mg tablet Take by mouth. 02/13/2025 Discontinued (Duplicate Listing) cranberry fruit (CRANBERRY) 450 mg tablet Take by mouth. Active meloxicam 15 mg oral tablet (4 sources) Nonsteroidal Anti-inflammatory Drug take 1 tablet by mouth once daily as needed Meloxicam 15 MG 1 tablet Orally Once a day PRN ONLY Not-Taking methylPREDNISolone (20 sources) Corticosteroid Start : 11-05 End: 12-05 methylPREDNISolone (Medrol Dospak) 4 MG tablets Indications: It band syndrome, right Follow schedule on package instructions 21 tablet 11/05/2024 12/05/2024 Discontinued (Therapy completed) Start: 11-05-2024 methylPREDNISo lone (Medrol Dospak) 4 MG tablets Indications: It band syndrome, right Follow schedule on package instructions 21 tablet 11/05/2024 Active Start: 05-21-2024 End: 06-13-2024 methylPREDNISolone (Medrol D ospak) 4 MG tablets Indications: Cervical strain, initial encounter Follow schedule on package instructions 21 tablet 05/21/2024 06/13/2024 Discontinued (Therapy completed) Start: 05-21-2024 methylPREDNISo lone (Medrol Dospak) 4 MG tablets Indications: Cervical strain, initial encounter Follow schedule on package instructions 21 tablet 05/21/2024 Active SITagliptin 50 mg oral tablet (20 sources) Dipeptidyl Peptidase 4 Inhibitor Start: 06-15-2024 End: 06-15-2025 take 1 tablet by mouth once daily Sitagliptin Phosphate (Januvia) 50 mg tablet Discontinued 50 MG PO Daily August 26, 2024 1:00am May 08, 2025 9:27am Problems Active Problems Problem Classification Problem Date Documented Date Episodic/Chronic Abdominal pain (3 sources) Right upper quadrant pain; Translations: [Right upper quadrant pain] 07-04-2024 Episodic Acquired foot deformities (2 sources) Hallux valgus (acquired), right foot; Translations: [Hallux valgus (acquired)] 11-18-2024 Chronic Allergic reactions (2 sources) Atopic dermatitis; Translations: [Other atopic dermatitis] 10-16-2024 Chronic Anxiety disorders (20 sources) Anxiety; Translations: [Anxiety disorder, unspecified] Onset: 3 07-21-2023 Chronic Chronic kidney disease (20 sources) Chronic kidney disease stage 3; Translations: [Chronic kidney disease, stage 3 (moderate)] Onset: 1 Resolved: 1 Chronic Coronary atherosclerosis and other heart disease (20 sources) Atypical angina; Translations: [Atypical angina] Onset: 3 04-27-2023 Chronic Diabetes mellitus with complications (20 sources) Type 2 diabetes mellitus well controlled; Translations: [Type 2 diabetes mellitus with hyperglycemia] Onset: 3 Chronic Diabetes mellitus without complication (20 sources) Type 2 diabetes mellitus; Translations: [Type 2 diabetes mellitus without complications] Onset: 3 08-10-2023 Chronic Diseases of mouth; excluding dental (6 sources) Oral lesion; Translations: [Unspecified lesions of oral mucosa] Onset: 4 08-10-2023 Episodic Disorders of lipid metabolism (20 sources) Mixed hyperlipidemia; Translations: [Mixed hyperlipidemia] Onset: 3 08-10-2023 Chronic Esophageal disorders (20 sources) Gastroesophageal reflux disease without esophagitis; Translations: [Gastro-esophageal reflux disease without esophagitis] Onset: 3 04-27-2023 Chronic Essential hypertension (20 sources) Hypertensive disorder; Translations: [Essential (primary) hypertension] Onset: 2 08-10-2023 Chronic Genitourinary symptoms and ill-defined conditions (20 sources) Urinary incontinence; Translations: [Unspecified urinary incontinence] Onset: 3 04-27-2023 Chronic Genitourinary symptoms and ill-defined conditions (20 sources) Hematuria, unspecified; Translations: [Urinary system finding] Onset: 1 Resolved: 2 Episodic Hepatitis (20 sources) Nonalcoholic steatohepatitis; Translations: [Nonalcoholic steatohepatitis (LARSON)] Onset: 4 Chronic Hypertension with complications and secondary hypertension (20 sources) Chronic kidney disease due to hypertension; Translations: [Hypertensive chronic kidney disease with stage 1 through stage 4 chronic kidney disease, or unspecified chronic kidney disease] Onset: 1 Resolved: 2 Chronic Immunizations and screening for infectious disease (6 sources) Patient encounter status; Translations: [Encounter for immunization] 06-13-2024 Episodic Menopausal disorders (20 sources) Disorder associated with menstruation AND/OR menopause; Translations: [Unspecified menopausal and perimenopausal disorder] Onset: 3 Resolved: 4 04-27-2023 Chronic Mycoses (2 sources) Onychomycosis; Translations: [Tinea unguium] 02-23-2025 Episodic Nonspecific chest pain (5 sources) Chest pain; Translations: [Other chest pain] Onset: 2 08-02-2022 Episodic Nutritional deficiencies (20 sources) Vitamin D deficiency; Translations: [Vitamin D deficiency, unspecified] Onset: 1 Resolved: 2 Chronic Osteoarthritis (20 sources) Osteoarthritis of knee; Translations: [Osteoarthritis of knee, unspecified] Onset: 8 04-27-2023 Chronic Other acquired deformities (20 sources) Joint contracture of the ankle and foot; Translations: [Contracture, unspecified ankle] Onset: 3 05-03-2023 Chronic Other and unspecified benign neoplasm (3 sources) Melanocytic nevus of trunk; Translations: [Melanocytic nevi of trunk] 07-21-2024 Episodic Other circulatory disease (3 sources) Spider nevus; Translations: [Nevus, non-neoplastic] 07-21-2024 Episodic Other connective tissue disease (20 sources) Artificial knee joint present; Translations: [Presence of left artificial knee joint] Onset: 3 04-27-2023 Chronic Other connective tissue disease (20 sources) History of total knee arthroplasty; Translations: [Presence of right artificial knee joint] Onset: 3 04-27-2023 Chronic Other connective tissue disease (2 sources) History of right total knee replacement; Translations: [Presence of right artificial knee joint] 11-05-2024 Chronic Other connective tissue disease (2 sources) Iliotibial band friction syndrome of right knee; Translations: [Iliotibial band syndrome, right leg] 11-05-2024 Episodic Other connective tissue disease (2 sources) Pain in both feet; Translations: [Pain in right foot] 02-23-2025 Episodic Other connective tissue disease (4 sources) History of cervical spine fusion; Translations: [Arthrodesis status] 07-15-2025 Episodic Other diseases of bladder and urethra (20 sources) Overactive bladder; Translations: [Overactive bladder] Onset: 3 08-10-2023 Chronic Other diseases of kidney and ureters (13 sources) Secondary hyperparathyroidism; Translations: [Secondary hyperparathyroidism of renal origin] 02-05-2025 Chronic Other diseases of kidney and ureters (1 source) Secondary hyperparathyroidism of renal origin Onset: 2 Resolved: 2 Chronic Other diseases of kidney and ureters (8 sources) Renal mass; Translations: [Other specified disorders of kidney and ureter] 11-06-2024 Chronic Other ear and sense organ disorders (2 sources) Hearing loss; Translations: [Other specified hearing loss, unspecified ear] 06-14-2023 Chronic Other ear and sense organ disorders (5 sources) 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; Translations: [Sensorineural hearing loss, bilateral] Onset: 3 08-10-2023 Chronic Other ear and sense organ disorders (20 sources) Chronic non-infective otitis externa; Translations: [Other otitis externa, bilateral] Onset: 3 Resolved: 4 04-27-2023 Chronic Other ear and sense organ disorders (20 sources) Sensorineural hearing loss, bilateral; Translations: [Sensorineural hearing loss, bilateral] Onset: 3 04-27-2023 Chronic Other gastrointestinal disorders (2 sources) Dysphagia; Translations: [Dysphagia, unspecified] 07-03-2024 Episodic Other hematologic conditions (8 sources) Erythrocytosis; Translations: [Secondary polycythemia] 08-26-2024 Episodic Other hematologic conditions (1 source) Secondary polycythemia; Translations: [Polycythemia, secondary] 02-05-2025 Episodic Other liver diseases (20 sources) Steatosis of liver; Translations: [Fatty (change of) liver, not elsewhere classified] Onset: 3 04-27-2023 Chronic Other liver diseases (2 sources) Fatty (change of) liver, not elsewhere classified; Translations: [Fatty (change of) liver, not elsewhere classified] Onset: 5 Chronic Other liver diseases (9 sources) Portal hypertension; Translations: [Portal hypertension] 07-03-2024 Chronic Other liver diseases (2 sources) Portal hypertension; Translations: [Portal hypertension] Onset: 4 Chronic Other liver diseases (6 sources) Abnormal levels of other serum enzymes; Translations: [ABNORMAL LEVELS OTHER SERUM ENZYMES] Onset: 2 Episodic Other liver diseases (2 sources) Liver enzymes abnormal; Translations: [Abnormal levels of other serum enzymes] 01-21-2025 Episodic Other lower respiratory disease (2 sources) Cough; Translations: [Cough, unspecified type] 10-14-2024 Episodic Other nervous system disorders (20 sources) Chronic pain; Translations: [Other chronic pain] Onset: 3 04-27-2023 Chronic Other non-traumatic joint disorders (20 sources) Derangement of right shoulder joint; Translations: [Other specific joint derangements of right shoulder, not elsewhere classified] Onset: 3 04-27-2023 Chronic Other non-traumatic joint disorders (2 sources) Pain in right knee; Translations: [Pain in joint, lower leg] 11-04-2024 Episodic Other non-traumatic joint disorders (2 sources) Disorder of joint of foot; Translations: [Other specified joint disorders, right ankle and foot] 11-18-2024 Episodic Other non-traumatic joint disorders (3 sources) Pain in right shoulder; Translations: [Pain in joint, shoulder region] Onset: 5 06-01-2025 Episodic Other non-traumatic joint disorders (1 source) Shoulder pain Onset: 5 Episodic Other nutritional; endocrine; and metabolic disorders (8 sources) Obese class I; Translations: [Body mass index (BMI) 33.0-33.9, adult] Chronic Other nutritional; endocrine; and metabolic disorders (20 sources) Morbid obesity; Translations: [Morbid (severe) obesity due to excess calories] Onset: 3 04-27-2023 Chronic Other nutritional; endocrine; and metabolic disorders (3 sources) Hyperuricemia without signs of inflammatory arthritis and tophaceous disease; Translations: [Other abnormal blood chemistry] Episodic Other skin disorders (3 sources) Seborrheic keratosis; Translations: [Other seborrheic keratosis] 07-21-2024 Episodic Other skin disorders (2 sources) Inflamed seborrheic keratosis; Translations: [Inflamed seborrheic keratosis] 10-16-2024 Episodic Other skin disorders (2 sources) Dystrophia unguium; Translations: [Nail dystrophy] 02-23-2025 Episodic Other upper respiratory disease (20 sources) Allergic rhinitis due to pollen; Translations: [Allergic rhinitis due to pollen] Onset: 3 04-27-2023 Chronic Other upper respiratory disease (2 sources) Congestion of nasal sinus; Translations: [Nasal congestion] 09-16-2024 Episodic Other upper respiratory disease (2 sources) Nasal congestion; Translations: [Nasal congestion] 10-14-2024 Episodic Other upper respiratory infections (2 sources) Acute pansinusitis; Translations: [Acute pansinusitis, unspecified] 10-14-2024 Episodic Prolapse of female genital organs (20 sources) Midline cystocele; Translations: [Cystocele, midline] Onset: 3 04-27-2023 Chronic Residual codes; unclassified (20 sources) Obstructive sleep apnea syndrome; Translations: [Obstructive sleep apnea (adult) (pediatric)] Onset: 3 04-27-2023 Chronic Residual codes; unclassified (1 source) Sleep apnea; Translations: [Sleep apnea, unspecified] 01-21-2025 Chronic Residual codes; unclassified (1 source) Sleep apnea, unspecified; Translations: [Sleep apnea, unspecified] Onset: 5 Chronic Residual codes; unclassified (6 sources) Amnesia; Translations: [Other amnesia] 06-02-2024 Episodic Residual codes; unclassified (2 sources) Flushing; Translations: [Flushing] 11-26-2024 Episodic Residual codes; unclassified (7 sources) Family history of cancer of colon; Translations: [Family history of malignant neoplasm of digestive organs] 12-06-2024 Episodic Residual codes; unclassified (3 sources) Family history of cancer of the esophagus; Translations: [Family history of malignant neoplasm of digestive organs] 01-21-2025 Episodic Residual codes; unclassified (1 source) Family history of malignant neoplasm of digestive organs; Translations: [Family history of malignant neoplasm of digestive organs] Onset: 5 Episodic Spondylosis; intervertebral disc disorders; other back problems (20 sources) Degeneration of lumbar intervertebral disc; Translations: [Other intervertebral disc degeneration, lumbar region] Onset: 3 11-09-2023 Chronic Superficial injury; contusion (1 source) Superficial foreign body of left middle finger, initial encounter; Translations: [Superficial foreign body of left middle finger, initial encounter] Onset: 5 Episodic Thyroid disorders (20 sources) Hypothyroidism; Translations: [Hypothyroidism, unspecified] Onset: 3 08-10-2023 Chronic Unclassified (1 source) CHRN KIDNEY DISEASE STG 3 UNSP; Translations: [CHRN KIDNEY DISEASE STG 3 UNSP] Onset: 3 Unclassified (1 source) Autogenerated Problem Onset: 5 01-27-2025 Unclassified (1 source) Portal venous hypertension (CMS-HCC) (K76.6) Onset: 5 Unclassified (1 source) GI Problem Onset: 5 Unclassified (1 source) Finger Pain Onset: 5 Unclassified (1 source) Medical Screening Onset: 5 Unclassified (2 sources) M50.122 - Cervical disc disorder at C5-C6 level with radiculopathy,M54.50 - Low back pain, unspecified Unclassified (1 source) Low back pain, unspecified; Translations: [Low back pain, unspecified] Onset: 5 Past or Other Problems Problem Classification Problem Date Documented Da te Episodic/Chronic Adjustment disorders (20 sources) Grief finding; Translations: [Adjustment disorder with depressed mood] Onset: 04-27-2023 Resolved: 03-11-2024 04-27-2023 Chronic Cardiac dysrhythmias (4 sources) Palpitations; Translations: [Palpitations] Onset: 08-02-2022 08-02-2022 Episodic Chronic kidney disease (10 sources) Chronic kidney disease; Translations: [Chronic kidney disease, stage III (moderate)] Onset: 11-23-2021 Resolved: 02-13-2022 Coma; stupor; and brain damage (4 sources) Daytime somnolence; Translations: [Somnolence] 06-02-2024 Episodic Diabetes mellitus without complication (3 sources) Hyperglycemia, unspecified; Translations: [HYPERGLYCEMIA UNSPECIFIED] Onset: 08-10-2021 Resolved: 02-13-2022 Episodic Gastritis and duodenitis (20 sources) Gastritis; Translations: [Gastritis, unspecified, without bleeding] Onset: 04-27-2023 04-27-2023 Episodic Mood disorders (20 sources) Mild major depression, single episode; Translations: [Major depressive disorder, single episode, mild] Onset: 04-27-2023 Resolved: 03-11-2024 04-27-2023 Chronic Other connective tissue disease (20 sources) Pain of right calf; Translations: [Pain in right lower leg] Onset: 04-27-2023 04-27-2023 Episodic Other connective tissue disease (20 sources) Recurrent falls ; Translations: [Repeated falls] Onset: 04-27-2023 04-27-2023 Episodic Other ear and sense organ disorders (20 sources) Decreased hearing ; Translations: [Unspecified hearing loss, bilateral] Onset: 04-27-2023 Resolved: 12-07-2023 04-27-2023 Chronic Other ear and sense organ disorders (20 sources) Ear pressure sensation; Translations: [Other specified disorders of ear, bilateral] Onset: 04-27-2023 04-27-2023 Episodic Other nervous system disorders (20 sources) Carpal tunnel syndrome of left wrist; Translations: [Carpal tunnel syndrome, left upper limb] Onset: 04-27-2023 Resolved: 12-07-2023 04-27-2023 Chronic Other nervous system disorders (20 sources) Difficulty walking; Translations: [Difficulty in walking, not elsewhere classified] Onset: 04-27-2023 Resolved: 03-11-2024 04-27-2023 Chronic Other nervous system disorders (20 sources) Abnormal gait; Translations: [Unsteadiness on feet] Onset: 04-27-2023 04-27-2023 Episodic Other non-traumatic joint disorders (20 sources) Pain in left knee; Translations: [Pain in joint, lower leg] Onset: 04-27-2023 04-27-2023 Episodic Other non-traumatic joint disorders (20 sources) Anterior knee pain; Translations: [Pain in right knee] Onset: 04-27-2023 04-27-2023 Episodic Other nutritional; endocrine; and metabolic disorders (20 sources) Hyperuricemia; Translations: [Hyperuricemia without signs of inflammatory arthritis and tophaceous disease] Onset: 05-01-2024 05-01-2024 Episodic Other screening for suspected conditions (not mental disorders or infectious disease) (20 sources) Coronary artery finding; Translations: [Abnormal findings on diagnostic imaging of heart and coronary circulation] Onset: 06-04-2023 06-05-2023 Episodic Other upper respiratory disease (20 sources) Nasal discharge; Translations: [Other specified disorders of nose and nasal sinuses] Onset: 04-27-2023 04-27-2023 Episodic Otitis media and related conditions (20 sources) Dysfunction of bilateral eustachian tubes; Translations: [Unspecified Eustachian tube disorder, bilateral] Onset: 04-27-2023 Resolved: 03-11-2024 04-27-2023 Episodic Residual codes; unclassified (4 sources) Difficulty sleeping ; Translations: [Sleep deprivation] 06-02-2024 Episodic Residual codes; unclassified (4 sources) Family history of dementia; Translations: [Family history of other mental and behavioral disorders] 06-02-2024 Episodic Spondylosis; intervertebral disc disorders; other back problems (20 sources) Pain in thoracic spine; Translations: [Pain in thoracic spine] Onset: 04-27-2023 04-27-2023 Episodic Results Test Name Value Interpretation Reference Range Facility X-ray reportOrdered By: Robert Colon on 07-20-2025 Study report [facility] [place] [address] XRay Report Signed Patient: Vivian Duran MR#: [id number] : 1950 Acct:[id number] Age/Sex: 74 / F ADM Date: 5 Loc: XD Room: Type: [facility] Attending Dr: Michele Armijo DO Copies to: Michele Armijo DO~ Ordering Provider: Michele Armijo DO Date of Service: 07/20/25 XR/XR lumbar spine AP/LAT/FLX/EXT: M54.50 - Low back pain, unspecified ([id number]) XR/XR cerv spine AP/LAT/FLX/EXT: M50.122 - Cervical disc disorderat C5-C6 level with radi... CERVICAL SPINE 4 views: , Lumbar spine 4 views CLINICAL HISTORY: Right shoulder pain for 3 months getting worst. COMPARISON: Cervical spine 06/02/2025 FINDINGS: Cervical spine: Anterior fusion hardware C5-6 without hardware complication. Diffuse endplate and facet joint degenerative changes without significant disc height loss. No prevertebral soft tissue swelling. No pathological motion. Lumbar spine: Vertebral body heights appear maintained. Scattered endplate and facet joint degenerative changes with mild disc space narrowing L3-S1. No pathological motion on flexion or extension views. Minimal anterolisthesis of L3 on L4 and L4 and L5. XR/XR cerv spine AP/LAT/FLX/EXT IMPRESSION: DEGENERATIVE CHANGES INVOLVING THE CERVICAL AND LUMBAR SPINES WITHOUT ACUTE BONYPROCESS. Impression dictated by: Ravi Colon Jr., D.OHugo 07/20/2025 2:26 PM Dictation Location: [place] [address] Transcribed By: [facility] 07/20/251425 Dictated By: Ravi Colon Jr, DO 07/20/25 142 Signed By: 07/20/25 142 [facility] XR lumbar spine AP/LAT/FLX/E XTon 07-20-2025 XR lumbar spine AP/LAT/FLX/EXT [facility] [address] [place] [address] [place] [address] XRay Report Signed Patient: Vivian Duran MR#: [id number] : 1950 Acct:[id number] Age/Sex: 74 / F ADM Date: 07/20/25 Loc: XD Room: Type: [facility] Attending Dr: Michele Armijo DO Copies to: Michele Armijo DO Ordering Provider: Michele Armijo DO Date of Service: 07/20/25 XR/XR lumbar spine AP/LAT/FLX/EXT: M54.50 - Low back pain, unspecified ([id number]) XR/XR cerv spine AP/LAT/FLX/EXT: M50.122 - Cervical disc disorder at C5-C6 level with radi... CERVICAL SPINE 4 views: , Lumbar spine 4 views CLINICAL HISTORY: Right shoulder pain for 3 months getting worst. COMPARISON: Cervical spine 06/02/2025 FINDINGS: Cervical spine: Anterior fusion hardware C5-6 without hardware complication. Diffuse endplate and facet joint degenerative changes without significant disc height loss. No prevertebral soft tissue swelling. No pathological motion. Lumbar spine: Vertebral body heights appear maintained. Scattered endplate and facet joint degenerative changes with mild disc space narrowing L3-S1. No pathological motion on flexion or e xtension views. Minimal anterolisthesis of L3 on L4 and L4 and L5. XR/XR cerv spine AP/LAT/FLX/EXT IMPRESSION: DEGENERATIVE CHANGES INVOLVING THE CERVICAL AND LUMBAR SPINES WITHOUT ACUTE BONY PROCESS. Impression dictated by: Ravi Colon Jr., D.OHugo 07/20/2025 2:26 PM Dictation Location: [facility] Transcribed By: [facility] 07/20/25 142 Dictated By: Ravi Colon Jr, DO 07/20/25 1424 Signed By: 07/20/25 142 Normal [facility] BEDSIDE GLUCOSEon 07-01-2025 Glucose [Mass/Vol] 141 mg/dL High 65-99 [facility] Comment on above: Performed By: #### B EDG #### [facility] [address] [place] [id number] VIR XR HAND LT MIN 3 VWSon 06-26 XR HAND LT MIN 3 VWS XR HAND LT MIN 3 VW S EXAM: XR HAND LT MIN 3 VWS CLINICAL INFORMATION: Possible foreign body in 3rd digit. COMPARISON: None. FINDINGS: There is a linear radiopaque foreign bodies within the distal enoc tissues of the third finger adjacent to the distal tuft. There is no evidence for an acute fracture or malalignment there is chronic severe DJD of the first CMC joint. IMPRESSION: 1. Linear radiopaque foreign body in the distal tip of the third finger. 2. No evidence for an acute displaced fracture or malalignment. 3. Severe DJD of the first CMC joint. Finalized by Rojelio Santos MD on 06/26/2025 6:27 PM Normal [facility] - Hematology and Cell countson 06-19-2025 HbA1c (Bld) [Mass fraction] 6.6 % [facility] No Panel Informationon 06-19 [facility] MR CERVICAL SPINE WO CONTRAS Ton 06-10-2025 MR CERVICAL SPINE WO CONTRAST EXAM: MR CERVICAL SPINE WO CONTRAST History: Neck pain radiating into the right shoulder. Technique: Multiplanar multisequence MRI of the cervical spine was performed without contrast. Comparison: Cervical spine radiographs June 02, 2025 Findings: Craniocervical junction is within normal limits. No cervical cord signal abnormality is identified. No aggressive bone marrow signal abnormality. Cervical spine alignment is within normal limits. Mild intervertebral disc height loss at C4-5. Postsurgical changes of anterior cervical spine fusion at C6-7 with associated artifact. C2-C3: No significant disc bulge, spinal canal or neuroforaminal stenosis. C3-C4: No significant disc bulge. Moderate right facet arthropathy. Moderate right neuroforaminal stenosis. No spinal canal stenosis. C4-C5: No significant disc bulge. Mild right facet arthropathy. No neural foraminal or spinal canal stenosis. C5-C6: Small disc bulge. Moderate left and mild right uncovertebral hypertrophy. Moderate to severe left and mild right neuroforaminal stenosis. Mild spinal canal stenosis. C6-C7: No neural foraminal or spinal canal stenosis. C7-T1: No significant disc bulge, spinal canal or neuroforaminal stenosis. Visualized paravertebral soft tissues are grossly unremarkable. IMPRESSION: Degenerative changes of the cervical spine as detailed. ELECTRONICALLY SIGNED BY: Andry Apple, DO Normal Not Available XR CERVICAL SPINE COMPLETE 4 -5 VIEWSon 06-02-2025 XR CERVICAL SPINE COMPLETE 4-5 VIEWS ADDENDUM #1 ADDENDUM: One of the screws at C7 is broken, grossly unchanged from prior. ELECTRONICALLY SIGNED BY: Blanco Tanner MD EXAMINATION/TECHNIQU E: XR CERVICAL SPINE COMPLETE 4-5 VIEWS HISTORY: Neck pain. COMPARISON: 05/21/2024. RESULT: Counting Reference: Craniocervical junction. Alignment unchanged. No radiographic evidence for acute fracture. Vertebral body heights maintained. Postsurgical changes from anterior fusion at C6-C7, grossly unchanged. Multilevel degenerative changes with disc height loss, endplate osteophytes, and facet/uncovertebral degenerative changes, similar to prior. Areas of bony foraminal narrowing, especially at the C5-C6 level above the prior fusion. Paraspinal soft tissues unremarkable. Lung apices clear. IMPRESSION: No acute osseous findings. Postsurgical and degenerative changes, similar to prior. ELECTRONICALLY SIGNED BY: Blanco Tanner MD Normal Not Available XR Shoulder - right 2 Viewso n 06-02-2025 Imaging Result: Right Shoulder AP and Scap Y No acute fracture or dislocation Bone Structures clavicle and scapula and humeral head appear normal alignment, post surgical changes at cuff imprint with metallic anchor noted. Glenohumeral joint space maintained, minimal degenerative changes to glenohumeral and ac joint. On scap Y incidental noted of fracture screw of Cervical fusion. Soft tissues and limited visualized lung schwab unremarkable Impression: No acute bony process right shoulder with post surgical changes, suspect fracture screw in cervical fusion noted on scap Y view. [facility] Radiology Study observation (narrative) [facility] MR Lumbar spine WO contrasto n 05-26-2025 Degenerative changes of the lumbar spine as detailed. ELECTRONICALLY SIGNED BY: Andry Apple DO IMAGING EXAM: MR LUMBAR SPINE WO CONTRAST History: LUMBAR RADICULOPATHY Technique: Multiplanar multisequence MRI of the lumbar spine was obtained without intravenous contrast. Comparison: Lumbar spine radiographs May 19, 2025 Findings: The conus medullaris ends normally. The vertebral body heights are well maintained. There is no aggressive bone marrow signal abnormality. Disc desiccation throughout the lumbar spine. Mild intervertebral disc height loss at L3-4, L4-5, and L5-S1. T12-L1: Tiny right central disc protrusion. No neural foraminal or spinal canal stenosis. L1-L2: No significant disc bulge or high-grade spinal canal or neuroforaminal stenosis. L2-L3: Small disc bulge with small superimposed left foraminal disc protrusion. Mild left facet arthropathy. Mild left neuroforaminal stenosis. No spinal canal stenosis. L3-L4: Small disc bulge. Mild facet arthropathy. No neural foraminal or spinal canal stenosis. L4-L5: Minimal anterolisthesis of L4 on L5 secondary to advanced facet arthropathy. Small disc bulge. Mild right neuroforaminal stenosis. No spinal canal stenosis. L5-S1: No Simmie disc bulge. Mild arthropathy. No neural foraminal or spinal canal stenosis. Visualized paravertebral soft tissues appear within normal limits. Ovoid 1.8 cm hyperintense T2 structure of the left kidney and round 1 cm structure of the left kidney are most likely cysts. Round 1 cm hyperintense T2 structure of the right kidney is likely a cyst. IMAGING Andry Apple DO - 05/26/2025 EXAM: MR LUMBAR SPINE WO CONTRAST History: LUMBAR RADICULOPATHY Technique: Multiplanar multisequence MRI of the lumbar spine was obtained without intravenous contrast. Comparison: Lumbar spine radiographs May 19, 2025 Findings: The conus medullaris ends normally. The vertebral body heights are well maintained. There is no aggressive bone marrow signal abnormality. Disc desiccation throughout the lumbar spine. Mild intervertebral disc height loss at L3-4, L4-5, and L5-S1. T12-L1: Tiny right central disc protrusion. No neural foraminal or spinal canal stenosis. L1-L2: No significant disc bulge or high-grade spinal canal or neuroforaminal stenosis. L2-L3: Small disc bulge with small superimposed left foraminal disc protrusion. Mild left facet arthropathy. Mild left neuroforaminal stenosis. No spinal canal stenosis. L3-L4: Small disc bulge. Mild facet arthropathy. No neural foraminal or spinal canal stenosis. L4-L5: Minimal anterolisthesis of L4 on L5 secondary to advanced facet arthropathy. Small disc bulge. Mild right neuroforaminal stenosis. No spinal canal stenosis. L5-S1: No Simmie disc bulge. Mild arthropathy. No neural foraminal or spinal canal stenosis. Visualized paravertebral soft tissues appear within normal limits. Ovoid 1.8 cm hyperintense T2 structure of the left kidney and round 1 cm structure of the left kidney are most likely cysts. Round 1 cm hyperintense T2 structure of the right kidney is likely a cyst. IMPRESSION: Degenerative changes of the lumbar spine as detailed. ELECTRONICALLY SIGNED BY: Andry Apple DO [facility] MR Lumbar spine WO contrastO rdered By: Andry Apple on 05-26-2025 [facility] [employer] Work Phone: C-REACTIVE PROTEINon 025 C REACTIVE PROTEIN 1.3 mg/dL High <=0.7 [facility] Comment on above: Performed By: #### C RP #### [facility]) [address] [place] [address]. [place] [address] VIR CBC WITH AUTO DIFFERENTIALon 05-25-2025 BASOPHILS ABSOLUTE COUNT (10*3/UL) BY AUTOMATED COUNT 0.0 10*3/uL Normal 0.0-0.2 [facility] Comment on above: Performed By: #### C BCA #### [facility]) [address] [place] [id number] VIR BASOPHILS RELATIVE PERCENT BY AUTOMATED COUNT 0.7 % Normal [facility] Comment on above: Performed By: #### C BCA #### [facility] ([address] [address] VIR CELLAVISION DIFFERENTIAL TYPE AUTOMATED DIFFERENTIAL Normal [facility] Comment on above: Performed By: #### C BCA #### [facility] ([address] [address] VIR Eosinophils (Bld) [#/Vol] 0.1 10*3/uL Normal 0.0-0.4 [facility] Comment on above: Performed By: #### C BCA #### [facility] ([address] [address] VIR EOSINOPHILS RELATIVE PERCENT BY AUTOMATED COUNT 1.2 % Normal [facility] Comment on above: Performed By: #### C BCA #### [facility] ([address] [place] [address] VIR Erythrocyte distribution width (RBC) [Ratio] 15.5 % High 11.5-15 [facility] Comment on above: Performed By: #### C BCA #### [facility] ([address] [address] VIR Hematocrit (Bld) [Volume fraction] 42.2 % Normal 35-47 [facility] Comment on above: Performed By: #### C BCA #### [facility] ([address] [address] VIR Hemoglobin (Bld) [Mass/Vol] 14.5 g/dL Normal 11.7-15.5 [facility] Comment on above: Performed By: #### C BCA #### [facility] ([address] [place] [address] VIR LYMPHOCYTES ABSOLUTE COUNT (10*3/UL) BY AUTOMATED COUNT 2.7 10*3/uL Normal 1.0-3.5 [facility] Comment on above: Performed By: #### C BCA #### [facility] ([address] [address] VIR LYMPHOCYTES RELATIVE PERCENT BY AUTOMATED COUNT 39.0 % Normal [facility] Comment on above: Performed By: #### C BCA #### [facility] ([address] [address] VIR MCH (RBC) [Entitic mass] 28.9 pg Normal 27-34 [facility] Comment on above: Performed By: #### C BCA #### [facility] ([address] [address] VIR MCHC (RBC) [Mass/Vol] 34.2 g/dL Normal 32-36 [facility] Comment on above: Performed By: #### C BCA #### [facility] ([address] [address] VIR MCV (RBC) [Entitic vol] 84 fL Normal 80-100 [facility] Comment on above: Performed By: #### C BCA #### [facility] ([address] [address] VIR MONOCYTES ABSOLUTE COUNT (10*3/UL) BY AUTOMATED COUNT 0.6 10*3/uL Normal 0.0-0.9 [facility] Comment on above: Performed By: #### C BCA #### [facility] ([address] [address] VIR MONOCYTES RELATIVE PERCENT BY AUTOMATED COUNT 8.5 % Normal [facility] Comment on above: Performed By: #### C BCA #### [facility] ([address] [place] [address] VIR NEUTROPHILS ABSOLUTE COUNT BY AUTOMATED COUNT 3.5 10*3/uL Normal 1.5-6.6 [facility] Comment on above: Performed By: #### C BCA #### [facility] ([address] [place] [address] VIR NEUTROPHILS RELATIVE PERCENT BY AUTOMATED COUNT 50.6 % Normal [facility] Comment on above: Performed By: #### C BCA #### [facility] ([address] [address] VIR Platelet mean volume (Bld) [Entitic vol] 7.1 fL Normal 7-12 [facility] Comment on above: Performed By: #### C BCA #### [facility] ([address] [address] VIR Platelets (Bld) [#/Vol] 210 10*3/uL Normal 150-450 [facility] Comment on above: Performed By: #### C BCA #### [facility] ([address] [address] VIR RBC COUNT 5.01 X10E12/L Normal 3.8-5.2 [facility] Comment on above: Performed By: #### C BCA #### [facility] ([address] [address] VIR WBC (Bld) [#/Vol] 6.8 10*3/uL Normal 4-11 [facility] Comment on above: Performed By: #### C BCA #### [facility] ([address] [address] VIR COMPREHENSIVE METABOLIC PANE Kayden 05-25-2025 Albumin [Mass/Vol] 4.0 g/dL Normal 3.2-5.3 [facility] Comment on above: Performed By: #### C MP #### [facility] ([address] [place] [address] VIR ALP [Catalytic activity/Vol] 66 U/L Normal 39-130 [facility] Comment on above: Performed By: #### C MP #### [facility] ([address] [place] [address] VIR ALT [Catalytic activity/Vol] 57 U/L High <=31 [facility] Comment on above: Performed By: #### C MP #### [facility] ([address] [place] [address] VIR Anion gap [Moles/Vol] 7 mmol/L Normal 5-15 [facility] Comment on above: Performed By: #### C MP #### [facility] ([address] [place] [address] VIR AST [Catalytic activity/Vol] 42 U/L High <=41 [facility] Comment on above: Performed By: #### C MP #### [facility] ([address] [place] [address] VIR Bilirubin [Mass/Vol] 0.7 mg/dL Normal 0.3-1.2 [facility] Comment on above: Performed By: #### C MP #### [facility] ([address] [place] [address] VIR Calcium [Mass/Vol] 9.2 mg/dL Normal 8.5-10.5 [facility] Comment on above: Performed By: #### C MP #### [facility] ([address] [place] [address] VIR Chloride [Moles/Vol] 102 mmol/L Normal 98-109 [facility] Comment on above: Performed By: #### C MP #### [facility] ([address] [place] [address] VIR CO2 [Moles/Vol] 27 mmol/L Normal 22-32 [facility] Comment on above: Performed By: #### C MP #### [facility] ([address] [place] [address] VIR Creatinine [Mass/Vol] 0.97 mg/dL Normal 0.40-1.00 [facility] Comment on above: Result Comment: METH OD TRACEABLE TO IDMS STANDARD Performed By: #### C MP #### [facility] ([address] [place] [address] VIR GFR/1.73 sq M.predicted among non-blacks MDRD (S/P/Bld) [Vol rate/Area] 62 mL/min/{1.73_m2} Normal >=60 [facility] Comment on above: Result Comment: eGFR not reported due to non-numeric value for Creatinine. Reported eGFR is based on the CKD-EPI 2021 equation that does not use a race coefficient. Performed By: #### C MP #### [facility] ([address] [place] [address] VIR Glucose [Mass/Vol] 162 mg/dL High 65-99 [facility] Comment on above: Performed By: #### C MP #### [facility] ([address] [place] [address] VIR Potassium [Moles/Vol] 3.9 mmol/L Normal 3.5-5.0 [facility] Comment on above: Performed By: #### C MP #### [facility] ([address] [place] [address] VIR Protein [Mass/Vol] 7.5 g/dL Normal 6.0-8.0 [facility] Comment on above: Performed By: #### C MP #### [facility] ([address] [place] [address] VIR Sodium [Moles/Vol] 136 mmol/L Normal 134-146 [facility] Comment on above: Performed By: #### C MP #### [facility]) [address] [address] VIR Urea nitrogen [Mass/Vol] 20 mg/dL Normal 5-27 [facility] Comment on above: Performed By: #### C MP #### [facility]) [address] [place] [address] [place] [address] VIR MR LUMBAR SPINE WO CONTRASTo n 05-25-2025 MR LUMBAR SPINE WO CONTRAST EXAM: MR LUMBAR SPINE WO CONTRAST History: LUMBAR RADICULOPATHY Technique: Multiplanar multisequence MRI of the lumbar spine was obtained without intravenous contrast. Comparison: Lumbar spine radiographs May 19, 2025 Findings: The conus medullaris ends normally. The vertebral body heights are well maintained. There is no aggressive bone marrow signal abnormality. Disc desiccation throughout the lumbar spine. Mild intervertebral disc height loss at L3-4, L4-5, and L5-S1. T12-L1: Tiny right central disc protrusion. No neural foraminal or spinal canal stenosis. L1-L2: No significant disc bulge or high-grade spinal canal or neuroforaminal stenosis. L2-L3: Small disc bulge with small superimposed left foraminal disc protrusion. Mild left facet arthropathy. Mild left neuroforaminal stenosis. No spinal canal stenosis. L3-L4: Small disc bulge. Mild facet arthropathy. No neural foraminal or spinal canal stenosis. L4-L5: Minimal anterolisthesis of L4 on L5 secondary to advanced facet arthropathy. Small disc bulge. Mild right neuroforaminal stenosis. No spinal canal stenosis. L5-S1: No Simmie disc bulge. Mild arthropathy. No neural foraminal or spinal canal stenosis. Visualized paravertebral soft tissues appear within normal limits. Ovoid 1.8 cm hyperintense T2 structure of the left kidney and round 1 cm structure of the left kidney are most likely cysts. Round 1 cm hyperintense T2 structure of the right kidney is likely a cyst. IMPRESSION: Degenerative changes of the lumbar spine as detailed. ELECTRONICALLY SIGNED BY: Andry J Ambika, DO Normal Not Available MR Lumbar spine WO contrasto n 05-25-2025 Radiology Study observation (narrative) [facility] PROCALCITONINon 05-25-2025 PROCALCITONIN <^0.05 Normal <0.05 [facility] Comment on above: Order Comment: <0.50 ng/mL - Low risk of severe sepsis and/or septic shock. <2.00 ng/mL - Recommend retesting within 6-24 hours. >2.00 ng/mL - High risk of sepsis and/or septic shock. Performed By: #### P JAMAR #### [facility] ([address] [address] VIR TROP I, HIGH SENSITIVITY 1 H OURon 05-25-2025 TROPONIN I, HIGH SENSITIVITY 4 ng/L Normal <16 [facility] Comment on above: Performed By: #### T NIHS1 #### [facility] ([address] [address] VIR TROPONIN I, HIGH SENSITIVITY 0 HOURon 05-25-2025 TROPONIN I, HIGH SENSITIVITY 3 ng/L Normal <16 [facility] Comment on above: Performed By: #### T NIHS0 #### [facility] ([address] [address] VIR XR CHEST 1 VWon 05-25-2025 XR CHEST 1 VW XR CHEST 1 VW Single view chest History:chest pain Difficulty breathing, shortness of breath Comparison: 06/27/2018 Findings: Single portable view of the chest. Stable cardiomediastinal silhouette. No focal opacity, effusion or pneumothorax. Impression: No acute cardiopulmonary process. Finalized by Cristine Bundy MD on 05/25/2025 3:48 PM Normal [facility] XR Lumbar spine 2 or 3 Views on 05-19-2025 Imaging Result: AP and lateral of lumbar spine showed markedly arthritis globally to the lumbar spine with ankylosing noted to both superior and inferior endplates globally. There is decreased disc space noted globally to the lumbar spine. Anterior and posterior columns appeared to be symmetric posterior elements appear to be anatomic. There was no acute Bony process including but not limited to fracture and/or dislocation. Impression: Moderate degenerative changes lumbar spine globally no acute bony process. [facility] Radiology Study observation (narrative) [facility] Alanine aminotransferase [En zymatic activity/volume] in Serum or PlasmaOrdered By: Mt Hernandez on 05-08-2025 ALT [Catalytic activity/Vol] 71 U/L High 7-52 [facility] Comment on above: Performed By: #### C BC, HEPATIC #### [facility] [address] [id number] [place] Albumin [Mass/volume] in Ser um or Plasma by Bromocresol green (BCG) dye binding methoOrdered By: Mt Hernandez on 05-08-2025 Albumin BCG dye [Mass/Vol] 4.6 g/dL 3.5-5.7 [facility] Alkaline phosphatase [Enzyma tic activity/volume] in Serum or PlasmaOrdered By: Mt Hernandez on 05-08-2025 ALP [Catalytic activity/Vol] 69 U/L Normal 34-104 [facility] Comment on above: Result Comment: PERF ORMED BY: [place] [address] PATHOLOGIST MACHINE COREMAKER SULEMAN WHITE M.D. Performed By: #### C BC, HEPATIC #### [facility] [address] [id number] [place] Aspartate aminotransferase [ Enzymatic activity/volume] in Serum or PlasmaOrdered By: Mt Hernandez on 05-08-2025 AST [Catalytic activity/Vol] 51 U/L High 13-39 [facility] Comment on above: Performed By: #### C BC, HEPATIC #### [facility] [address] [place] [address] [place] Basophils [#/volume] in Bloo d by Automated countOrdered By: Mt Hernandez on 05-08-2025 Basophils (Bld) [#/Vol] 0.0 10*3/uL Normal 0.0-0.2 [facility] Comment on above: Result Comment: PERF ORMED BY: [facility] [address] [place] [address] PATHOLOGIST MACHINE COREMAKER SULEMAN WHITE M.D. Performed By: #### C BC, HEPATIC #### [facility] [address] Basophils/100 leukocytes in Blood by Automated countOrdered By: Mt Hernandez on 05-08-2025 Basophils/100 WBC (Bld) 0.7 % Normal . [facility] Comment on above: Performed By: #### C BC, HEPATIC #### [address] Bilirubin.direct [Mass/volum e] in Serum or PlasmaOrdered By: Mt Hernandez on 05-08-2025 Bilirubin.direct [Mass/Vol] 0.20 mg/dL High 0.03-0.18 [facility] Bilirubin.total [Mass/volume ] in Serum or PlasmaOrdered By: Mt Hernandez on 05-08-2025 Bilirubin [Mass/Vol] 0.7 mg/dL Normal 0.3-1.0 [facility] Comment on above: Performed By: #### C BC, HEPATIC #### [address] Complete Blood Count Auto Di ffon 05-08-2025 Mean Corpuscular HGB Conc 33.6 g/dL Normal 32.0-35.0 [facility] Comment on above: Performed By: #### C BC, HEPATIC #### [address] NRBC% 0.4 /100{WBC} Normal 0-0.5 [facility] Comment on above: Performed By: #### C BC, HEPATIC #### [address] White Blood Count 6.7 [CFU]/mL Normal 3.8-11.6 [facility] Comment on above: Performed By: #### C BC, HEPATIC #### [address] Eosinophils [#/volume] in Bl ood by Automated countOrdered By: Mt Hernandez on 05-08-2025 Eosinophils (Bld) [#/Vol] 0.2 10*3/uL Normal 0.0-0.45 [facility] Comment on above: Performed By: #### C BC, HEPATIC #### [address] Eosinophils/100 leukocytes i n Blood by Automated countOrdered By: Mt Hernandez on 05-08-2025 Eosinophils/100 WBC (Bld) 2.8 % Normal . [facility] Comment on above: Performed By: #### C BC, HEPATIC #### [address] Erythrocyte distribution wid th [Ratio] by Automated countOrdered By: Mt Hernandez on 05-08-2025 Erythrocyte distribution width (RBC) [Ratio] 15.7 % High 11.9-15.3 [facility] Comment on above: Performed By: #### C BC, HEPATIC #### [address] Erythrocytes [#/volume] in B lood by Automated countOrdered By: Mt Hernandez on 05-08-2025 RBC (Bld) [#/Vol] 5.29 10*6/uL High 3.60-5.00 [facility] Comment on above: Performed By: #### C BC, HEPATIC #### [address] Hematocrit [Volume Fraction] of Blood by Automated countOrdered By: Mt Hernandez on 05-08-2025 Hematocrit (Bld) [Volume fraction] 45.5 % Normal 34.0-46.4 [facility] Comment on above: Performed By: #### C BC, HEPATIC #### [address] Hemoglobin [Mass/volume] in BloodOrdered By: Mt Hernandez on 05-08-2025 Hemoglobin (Bld) [Mass/Vol] 15.3 g/dL Normal 11.8-15.4 [facility] Comment on above: Performed By: #### C BC, HEPATIC #### [address] Hepatic Panelon 05-08-2025 Albumin [Mass/Vol] 4.6 g/dL Normal 3.5-5.7 [facility] Comment on above: Performed By: #### C BC, HEPATIC #### [address] Bilirubin,Indirect 0.5 mg/dL Normal [facility] Comment on above: Performed By: #### C BC, HEPATIC #### [address] Bilirubin.indirect [Mass/Vol] 0.20 mg/dL High 0.03-0.18 [facility] Comment on above: Performed By: #### C BC, HEPATIC #### [address] Leukocytes [#/volume] correc tarun for nucleated erythrocytes in Blood by Automated counOrdered By: Mt Hernandez on 05-08-2025 WBC corrected for nucl RBC Auto (Bld) [#/Vol] 6.7 10*3/uL 3.8-11.6 [facility] Leukocytes [#/volume] in Blo od by Automated countOrdered By: Mt Hernandez on 05-08-2025 WBC (Bld) [#/Vol] 6.7 10*3/uL Normal 3.8-11.6 [facility] Comment on above: Performed By: #### C BC, HEPATIC #### [address] Lymphocytes [#/volume] in Bl ood by Automated countOrdered By: Mt Hernandez on 05-08-2025 Lymphocytes (Bld) [#/Vol] 2.1 10*3/uL Normal 1.00-4.8 [facility] Comment on above: Performed By: #### C BC, HEPATIC #### [address] Lymphocytes/100 leukocytes i n Blood by Automated countOrdered By: Mt Hernandez on 05-08-2025 Lymphocytes/100 WBC (Bld) 31.7 % Normal . [facility] Comment on above: Performed By: #### C BC, HEPATIC #### [place] [address] [place] MCH [Entitic mass] by Automa tarun countOrdered By: Mt Hernandez on 05-08-2025 MCH (RBC) [Entitic mass] 28.9 pg Normal 24.7-34.3 [facility] Comment on above: Performed By: #### C BC, HEPATIC #### [address] MCHC Auto (RBC) [Mass/Vol]Or dered By: Mt Hernandez on 05-08-2025 MCHC (RBC) [Mass/Vol] 33.6 g/dL 32.0-35.0 [facility] MCV [Entitic volume] by Auto mated countOrdered By: Mt Hernandez on 05-08-2025 MCV (RBC) [Entitic vol] 86.0 fL Normal 80-100 [facility] Comment on above: Performed By: #### C BC, HEPATIC #### [place] [address] [place] Monocytes [#/volume] in Bloo d by Automated countOrdered By: Mt Hernandez on 05-08-2025 Monocytes (Bld) [#/Vol] 0.7 10*3/uL Normal 0.0-0.8 [facility] Comment on above: Performed By: #### C BC, HEPATIC #### [place] [address] [place] Monocytes/100 leukocytes in Blood by Automated countOrdered By: Mt Hernandez on 05-08-2025 Monocytes/100 WBC (Bld) 10.4 % Normal . [facility] Comment on above: Performed By: #### C BC, HEPATIC #### [place] [address] [place] Neutrophils [#/volume] in Bl ood by Automated countOrdered By: Mt Hernandez on 05-08-2025 Neutrophils (Bld) [#/Vol] 3.6 10*3/uL Normal 1.8-7.7 [facility] Comment on above: Performed By: #### C BC, HEPATIC #### [place] [address] [place] Neutrophils/100 leukocytes i n Blood by Automated countOrdered By: Mt Hernandez on 05-08-2025 Neutrophils/100 WBC (Bld) 54.4 % Normal . [facility] Comment on above: Performed By: #### C BC, HEPATIC #### [address] Nucleated erythrocytes [Pres ence] in Blood by Automated countOrdered By: Mt Hernandez on 05-08-2025 Nucleated RBC Auto Ql (Bld) 0.4 /100{WBC} 0-0.5 [facility] Platelet mean volume [Entiti c volume] in Blood by Automated countOrdered By: Mt Hernandez on 05-08-2025 Platelet mean volume (Bld) [Entitic vol] 7.5 fL Normal 6.3-10.7 [facility] Comment on above: Performed By: #### C BC, HEPATIC #### [address] Platelets [#/volume] in Bloo d by Automated countOrdered By: Mt Hernandez on 05-08-2025 Platelets (Bld) [#/Vol] 217 10*3/uL Normal 150-450 [facility] Comment on above: Performed By: #### C BC, HEPATIC #### [address] Protein [Mass/volume] in Ser um or PlasmaOrdered By: Mt Hernandez on 05-08-2025 Protein [Mass/Vol] 7.4 g/dL Normal 6.4-8.9 [facility] Comment on above: Performed By: #### C BC, HEPATIC #### [address] Serum globulin measurement b y calculation (mass/volume)Ordered By: Mt Hernandez on 05-08-2025 Globulin (S) [Mass/Vol] 2.8 g/dL Normal [facility] Comment on above: Performed By: #### C BC, HEPATIC #### [address] [place] [address] [facility] Serum or plasma albumin/glob ulin mass ratioOrdered By: Mt Hernandez on 05-08-2025 Albumin/Globulin [Mass ratio] 1.6 {ratio} Normal [facility] Comment on above: Performed By: #### C BC, HEPATIC #### [facility] [address] [id number] [facility] Serum or plasma non-glucuron idated bilirubin measurement (mass/volume)Ordered By: Mt Hernandez on 05-08-2025 Bilirubin.indirect [Mass/Vol] 0.5 mg/dL [facility] - Hematology and Cell countson 03-17-2025 HbA1c (Bld) [Mass fraction] 7.1 % [facility] No Panel Informationon 03-17 Interpretation and review of laboratory results Abnormal [facility] XR Foot - left 3 [facility]son Imaging Result: AP, medial oblique, lateral views are weight-bearing. Decreased calcaneal inclination, increased talar declination. Enthesophyte at the insertion of the plantar fascia. Increased IM 1-2 angle. Lateral deviation of the hallux, lateral subluxation of the sesamoids. No fractures or dislocations. [facility] Radiology Study observation (narrative) [facility] BEDSIDE GLUCOSEon 02-19-2025 Glucose [Mass/Vol] 153 mg/dL High 65-99 [facility] Comment on above: Performed By: #### B EDG #### [facility] [address] [place] [address] VIR Erythrocyte distribution wid th Auto (RBC) [Ratio]on 01-28-2025 Erythrocyte distribution width (RBC) [Ratio] Erythrocyte distribution width [Ratio] by Automated count 11.0-15.0 [facility] Estimated glomerular filtrat ion rate (GFR) non- Americanon 01-28-2025 GFR/1.73 sq M.predicted among non-blacks MDRD (S/P/Bld) [Vol rate/Area] Estimated glomerular filtration rate (GFR) non- Low >=60 mL/min/1.73m 2 [facility] Hematocrit Auto (Bld) [Volum e fraction]on 01-28-2025 Hematocrit (Bld) [Volume fraction] Hematocrit [Volume Fraction] of Blood by Automated count 36.0-48.0 [facility] Hemoglobin [Mass/volume] in Bloodon 01-28-2025 Hemoglobin (Bld) [Mass/Vol] Hemoglobin [Mass/volume] in Blood 12.0-16.0 [facility] - Chemistry and C hemistry - challengeon 01-28-2025 Albumin [Mass/Vol] 4.1 g/dL 3.4-5.0 [facility] Calcium [Mass/Vol] 9.5 mg/dL 8.5-10.1 [facility] Chloride [Moles/Vol] 101 mmol/L 98-107 [facility] CO2 [Moles/Vol] 30.0 mmol/L 21.0-32.0 [facility] Creatinine [Mass/Vol] 1.04 mg/dL High 0.55-1.02 [facility] GFR/1.73 sq M.predicted MDRD (S/P/Bld) [Vol rate/Area] mL/min/{1.73_m2} >=60 mL/min/1.73m 2 [facility] Glucose [Mass/Vol] 137 mg/dL High 74-106 [facility] Magnesium [Mass/Vol] 2.0 mg/dL 1.8-2.4 [facility] Potassium [Moles/Vol] 4.1 mmol/L 3.5-5.1 [facility] Sodium [Moles/Vol] 139 mmol/L 136-145 [facility] Urate [Mass/Vol] 6.0 mg/dL 2.6-6.0 [facility] Urea nitrogen [Mass/Vol] 18.0 mg/dL 7.0-18.0 [facility] Urea nitrogen/Creatinine [Mass ratio] 17.3 mg/mg [facility] Leukocytes [#/volume] correc tarun for nucleated erythrocytes in Blood by Automated counon 01-28-2025 WBC corrected for nucl RBC Auto (Bld) [#/Vol] Leukocytes [#/volume] corrected for nucleated erythrocytes in Blood by Automated coun 4.0-11.0 [facility] MCH Auto (RBC) [Entitic mass ]on 01-28-2025 MCH (RBC) [Entitic mass] MCH [Entitic ma ss] by Automated count 26.7-34.0 [facility] MCHC Auto (RBC) [Mass/Vol]on 01-28-2025 MCHC (RBC) [Mass/Vol] MCHC [Mass/volume] by Automated count 29.9-35.2 [facility] MCV Auto (RBC) [Entitic vol] on 01-28-2025 MCV (RBC) [Entitic vol] MCV [Entitic vol ume] by Automated count 81.0-99.0 [facility] No Panel Informationon 01-28 25-Hydroxy Vitamin D Total 45.4 ng/mL [facility] Comment on above: <20 ng/mL Vit D defi cient20-<30 ng/mL Vit D mzcffyskdvkm48-320 ng/mL Vit D sufficient>100 ng/mL Potential Toxicity Parathyroid Hormone (Intact) 27 pg/mL 15-65 [facility] Comment on above: Performed at: [employer] [address] [id number] Director: Ernesto Beebe PhD, Phone: [phone] Phosphorus Level 4.0 mg/dL 2.6-4.7 [facility] Urine Random Creatinine 31.01 mg/dL 20.00-300.0 0 [facility] Urine Random Total Protein <6.0 mg/dL <=11.9 [facility] Platelet mean volume Auto (B ld) [Entitic vol]on 01-28-2025 Platelet mean volume (Bld) [Entitic vol] Platelet mean volume [Entitic volume] in Blood by Automated count Low 9.5-13.5 [facility] Platelets Auto (Bld) [#/Vol] on 01-28-2025 Platelets (Bld) [#/Vol] Platelets [#/vol ume] in Blood by Automated count 150-450 [facility] RBC Auto (Bld) [#/Vol]on RBC (Bld) [#/Vol] Erythrocytes [#/volume] in Blood by Automated count High 4.20-5.40 [facility] Serum or plasma anion gap de terminationon 01-28-2025 Anion gap [Moles/Vol] Serum or plasma anion gap determination [facility] TBH URINE T PROTEIN CREAT RA TIOon 01-28-2025 CREATININE URINE RANDOM 31.01 mg/dL 20.0 0 - 300.00 mg/dL [facility] TOTAL PROTEIN URINE RANDOM <6.0 NINF - 11.9 mg/dL [facility] Urine Cultureon 01-28-2025 Bacteria identified Cx Nom (U) 15,000 colonies/ml mixed bacterial skin contaminants 2 Days PERFORMED BY: [place] [address] PATHOLOGIST MACHINE COREMAKER RALPH RIOS M.D. Normal [facility] Comment on above: Performed By: #### C UU #### [address] CBC AND AUTO DIFFon 01-22-20 25 ABSOLUTE BASOPHIL 0.1 X10E9/L Normal 0.0-0.2 [facility] Comment on above: Performed By: #### 4 8796-7 #### [facility] ([id number]) [address] [place] [address] #### CBCA #### [facility] ([id number]) [address] [facility], [address] [place] [address] ABSOLUTE NEUTROPHIL 3.4 X10E9/L Normal 1.5-6.6 [facility] Comment on above: Performed By: #### 4 8796-7 #### [facility] ([id number]) [address] [place] [address] #### CBCA #### [facility] ([id number]) [address] [facility], [address] [place] [address] Basophils/100 WBC (Bld) 0.9 % Normal [facility] Comment on above: Performed By: #### 4 8796-7 #### [facility] ([id number]) [address] [place] [address] #### CBCA #### [facility] ([id number]) [address] [address] [place] [address] Eosinophils (Bld) [#/Vol] 0.2 10*3/uL Normal 0.0-0.4 [facility] Comment on above: Performed By: #### 4 8796-7 #### [facility] ([id number]) [address] [place], [place] [address] #### CBCA #### [facility] ([id number]) [address] [facility] [address] [place] [address] Eosinophils/100 WBC (Bld) 2.4 % Normal [facility] Comment on above: Performed By: #### 4 8796-7 #### [facility] ([id number]) [address] [place] [address] 29793 #### CBCA #### [facility] ([id number]) [address] [address] Erythrocyte distribution width (RBC) [Ratio] 14.0 % Normal 11.5-15.0 [facility] Comment on above: Performed By: #### 4 8796-7 #### [facility] ([id number]) [address] [place] [address]673 #### CBCA #### [facility] ([id number]) [address] [address] Hematocrit (Bld) [Volume fraction] 46.4 % Normal 35-47 [facility] Comment on above: Performed By: #### 4 8796-7 #### [facility] ([id number]) [address] [place] [address] #### CBCA #### [facility] ([id number]) [address] [facility] [address] [place] [address] Hemoglobin (Bld) [Mass/Vol] 15.4 g/dL Normal 11.7-15.5 [facility] Comment on above: Performed By: #### 4 8796-7 #### [facility] ([id number]) [address] [place] [address] #### CBCA #### [facility] ([id number]) [address], [address] [place] [address] Lymphocytes (Bld) [#/Vol] 2.1 10*3/uL Normal 1.0-3.5 [facility] Comment on above: Performed By: #### 4 8796-7 #### [facility] ([id number]) [address] [place], [place] [address] #### CBCA #### [facility] ([id number]) [address] [place] [address] Lymphocytes/100 WBC (Bld) 33.4 % Normal [facility] Comment on above: Performed By: #### 4 8796-7 #### [facility] ([id number]) [address] [place], [place] [address] #### CBCA #### [facility] ([id number]) [address] [place] [address] MCH (RBC) [Entitic mass] 29.0 pg Normal 27-34 [facility] Comment on above: Performed By: #### 4 8796-7 #### [facility] ([id number]) [address] [place] [address] #### CBCA #### [facility] ([id number]) [address], [address] [place] [address] MCHC (RBC) [Mass/Vol] 33.1 g/dL Normal 32-36 [facility] Comment on above: Performed By: #### 4 8796-7 #### [facility] ([id number]) [address] [place] [address] #### CBCA #### [facility] ([id number]) [address], [address] [place] [address] MCV (RBC) [Entitic vol] 88 fL Normal 80-100 [facility] Comment on above: Performed By: #### 4 8796-7 #### [facility] ([id number]) [address] [place] [address] #### CBCA #### [facility] ([id number]) [address] [place] [address] Monocytes (Bld) [#/Vol] 0.6 10*3/uL Normal 0-0.9 [facility] Comment on above: Performed By: #### 4 8796-7 #### [facility] ([id number]) [address] [place], [place] [address] #### CBCA #### [facility] ([id number]) [address] [place] [address] Monocytes/100 WBC (Bld) 9.1 % Normal [facility] Comment on above: Performed By: #### 4 8796-7 #### [facility] ([id number]) [address] [place] [address] #### CBCA #### [facility] ([id number]) [address] [place] [address] Neutrophils/100 WBC (Bld) 54.2 % Normal [facility] Comment on above: Performed By: #### 4 8796-7 #### [facility] ([id number]) [address] [place] [address] #### CBCA #### [facility] ([id number]) [address] [place] [address] Platelet mean volume (Bld) [Entitic vol] 8.0 fL Normal 7-12 [facility] Comment on above: Performed By: #### 4 8796-7 #### [facility] ([id number]) [address] [place] [address] #### CBCA #### [facility] ([id number]) [address] [place] [address] Platelets (Bld) [#/Vol] 235 10*3/uL Normal 150-450 [facility] Comment on above: Performed By: #### 4 8796-7 #### [facility] ([id number]) [address] [place] [address] #### CBCA #### [facility] ([id number]) [address] [facility], [address] [place] [address] RBC COUNT 5.30 X10E12/L High 3.80-5.20 [facility] Comment on above: Performed By: #### 4 8796-7 #### [facility] ([id number]) [address] [place] [address] #### CBCA #### [facility] ([id number]) [address] [place] [address] WBC (Bld) [#/Vol] 6.3 10*3/uL Normal 4.0-11.0 [facility] Comment on above: Performed By: #### 4 8796-7 #### [facility] ([id number]) [address] [place] [address] #### CBCA #### [facility] ([id number]) [address] [place] [address] HCV FibroSURE panelon 2024 ActiTest Grade NOTE Normal [facility] Comment on above: Result Comment: RESU LT: A0-A1 Performed By: #### 4 8796-7 #### [facility] ([id number]) [address] [place] [address] #### CBCA #### [facility] ([id number]) [address] [facility] [address] [place] [address] ActiTest Interpretation no activity Normal [facility] Comment on above: Result Comment: NOTE ActiTest estimates necroinflammatory activity ActiTest Score Grade Interpretation 0.00-0.17 A0 no activity 0.17-0.29 A0-A1 no activity 0.29-0.36 A1 minimal activity 0.36-0.52 A1-A2 minimal activity 0.52-0.60 A2 significant activity 0.60-0.62 A2-A3 significant activity 0.62-1.00 A3 severe activity Performed By: #### 4 8796-7 #### [facility] ([id number]) [address] [place] [address] #### CBCA #### [facility] ([id number]) [address] [address] ActiTest Score 0.28 Normal [facility] Comment on above: Performed By: #### 4 8796-7 #### [facility] ([id number]) [address] [place], [place] [address] #### CBCA #### [facility] ([id number]) [address] [address] Peelb-0-Durtpncoodddw, S 227 mg/dL Normal 100 - 280 [facility] Comment on above: Performed By: #### 4 8796-7 #### [facility] ([id number]) [address] [place] [address] #### CBCA #### [facility] ([id number]) [address] [facility] [facility] [address] [place] [address] ALT [Catalytic activity/Vol] 48 U/L High 7-45 [facility] Comment on above: Performed By: #### 4 8796-7 #### [facility] ([id number]) [address] [place] [address]653 #### CBCA #### [facility] ([id number]) [address] [place] [address] Amylase [Catalytic activity/Vol] 44 U/L High 5 - 36 [facility] Comment on above: Performed By: #### 4 8796-7 #### [facility] ([id number]) [address] [place] [address] 23990 #### CBCA #### [facility] ([id number]) [address] [place] [address] Apolipoprotein A1, S 159 mg/dL Normal >=140 [facility] Comment on above: Performed By: #### 4 8796-7 #### [facility] ([id number]) [address] [place] [address]326 #### CBCA #### [facility] ([id number]) [address] [facility] [place] [address] Bilirubin [Mass/Vol] 0.4 mg/dL Normal 0.0 - 1.2 [facility] Comment on above: Result Comment: NOTE Test Performed by: [facility] [place] [address] [place] [address] Community Service Specialist: Ortega Ruiz Ph.D.; CLIA# [id number] Test Performed by: [facility] [address] [place] [address] Community Service Specialist: Ortega Ruiz Ph.D.; CLIA# [id number] Performed By: #### 4 8796-7 #### [facility] ([id number]) [address] [place] [address]17 #### CBCA #### [facility] ([id number]) [address] [place] [address] [employer] Serial Number [id number] Normal [facility] Comment on above: Performed By: #### 4 8796-7 #### [facility] ([id number]) [address] [place] [address]98 #### CBCA #### [facility] ([id number]) [address] [place] [address] FibroTest Interpretation minimal fibrosis Normal [facility] Comment on above: Result Comment: NOTE FibroTest estimates liver fibrosis FibroTest Score Stage Interpretation 0.00-0.21 F0 no fibrosis 0.21-0.27 F0-F1 no fibrosis 0.27-0.31 F1 minimal fibrosis 0.31-0.48 F1-F2 minimal fibrosis 0.48-0.58 F2 moderate fibrosis 0.58-0.72 F3 advanced fibrosis 0.72-0.74 F3-F4 advanced fibrosis 0.74-1.00 F4 severe fibrosis (Cirrhosis) Performed By: #### 4 8796-7 #### [facility] ([id number]) [address] [place] [address] 17999 #### CBCA #### [facility] ([id number]) [address] [place] [address] FibroTest Score 0.31 Normal [facility] Comment on above: Performed By: #### 4 8796-7 #### [facility] ([id number]) [address] [place] [address] 7[address]27 #### CBCA #### [facility] ([id number]) [address] [place] [address] FibroTest Stage Follicular phase: 4 - 13 mIU/ml Normal [facility] Comment on above: Performed By: #### 4 8796-7 #### [facility] ([id number]) [address] [place], [place] [address] #### CBCA #### [facility] ([id number]) [address] [facility] [place] [address] FibroTest-ActiTest Comment See Note Normal [facility] Comment on above: Result Comment: NOTE The reliability of results is dependent on compliance with the preanalytical and analytical conditions recommended by [employer]. The tests have to be deferred for: acute hemolysis, acute hepatitis, acute inflammation, extra hepatic cholestasis. The advice of a specialist should be sought for interpretation in chronic hemolysis and Gilbert's syndrome. The test interpretation is not validated in liver transplant patients. Isolated extreme values of one of the components should lead to caution in interpreting the results. In case of discordance between a biopsy result and a test, it is recommended to seek advice of a specialist. The causes of these discordances could be due to a flaw of the test or to a flaw in the biopsy: i.e. a liver biopsy has a 33% variability rate for one fibrosis stage. FibroTest is interpretable for chronic hepatitis B and C, alcoholic and non alcoholic steatosis. ActiTest is interpretable for chronic hepatitis B and C. ADDITIONAL INFORMATION This test was developed and its performance characteristics determined by [facility] in a manner consistent with CLIA requirements. This test has not been cleared or approved by the U.S. Food and Drug Administration. Performed By: #### 4 8796-7 #### [facility] ([id number]) [address] [place] [address]36 #### CBCA #### [facility] ([id number]) [address] [facility] [place] [address] Haptoglobin, S 127 mg/dL Normal 30 - 200 [facility] Comment on above: Performed By: #### 4 8796-7 #### [facility] ([id number]) [facility] [place] [address] #### CBCA #### [facility] ([id number]) [address] [place] [address] CT ABDOMEN PELVIS W AND WO I V CONTRASTon 11-12-2024 CT ABDOMEN PELVIS W AND WO IV CONTRAST EXAM: CT Abdomen Pelvis with and without IV Contrast. REASON FOR EXAM: Renal mass, abnormal ultrasound. TECHNICAL: Spiral images are obtained through the abdomen and pelvis. IV Contrast: Before and after Isovue 300-100 mL IV COMPARISON: 11/05/2024 FINDINGS: Abdomen: Lower Chest: Heart is not enlarged. No significant coronary calcifications are visualized. Liver: Liver is enlarged at 20 cm and mildly diminished in attenuation. No focal abnormality is apparent. Spleen: Spleen is borderline enlarged at 13 cm. Several calcifications noted. Gallbladder/Biliary system: Gallbladder is absent. No biliary dilatation identified. Pancreas: Unremarkable Adrenals: Unremarkable and symmetric. Kidneys: No hydronephrosis or urinary calcifications are seen. Several fluid density nonenhancing small cysts are present in the renal cortex bilaterally. On the right, this measures 0.8 cm in the midpole. In the left, this measures 1 cm in the midpole and 2 cm in the posteromedial cortex. Retroperitoneum: There are aortic calcifications without dilatation. Bowel: No dilatation, wall or fold thickening identified. There is a large amount of stool in the proximal and transverse colon. Appendix is not discretely visualized. Peritoneum/Mesentery : Clear Pelvis: No mass, adenopathy or free fluid is apparent. Bladder is unremarkable. Inguinal regions are clear. Uterus is absent. IMPRESSION : 1. Several simple appearing renal cysts correlating with the recent ultrasound findings, Bosniak type I. 2. Mild hepatomegaly and steatosis. All CT scans at this institution are performed using dose optimization techniques as appropriate for the performed exam including the following: Automated exposure control Adjustment of the mA and/or kV according to patient size Use of iterative reconstruction technique *This report is generated using voice recognition reporting (Colo[employer]). On occasion [employer] (d.b.a. [employer])cribe erroneously drops words from the report or replaces the spoken word with similar sounding words. Please call with any questions/concerns regarding this report.* Dictated and transcribed 11/12/2024/tm This report has been electronically signed and approved by the interpreting radiologist. Normal Not Available Comment on above: Order Comment: RUQ P AIN, RENAL MASS XR Knee - right 1 or 2 Views on 11-05-2024 Imaging Result: AP and Lateral of right knee: Surgical position and alignment of prosthetic components without evidence of loosening or wear to femora, tibial or patellar components, The alignment appears to be anatomic. No evidence of accelerated or asymmetric wear to tibial tray or patella button. No evidence of fracture or dislocation. Impression: Unremarkable right total knee arthroplasty [facility] Radiology Study observation (narrative) [facility] US RENAL COMPLETEon 11-04-19 US RENAL COMPLETE EXAM: Retroperitoneal Ultrasound: REASON FOR EXAM: Bilateral back pain. COMPARISON: Abdominal ultrasound July 02, 2024. TECHNIQUE: Longitudinal and transverse grayscale, color Doppler images of the retroperitoneum obtained. FINDINGS: Hyperechoic liver is incidentally noted. There is a subtle hypoechoic partially exophytic nodule of the right kidney midpole measuring 1.13 x 0.62 x 1 cm. No definite through-transmission or enhancement of the posterior wall. This finding is minimally larger than on the previous ultrasound. Not present on previous ultrasound of November 30, 2021. The left kidney demonstrates an anechoic mass 1.18 x 0.99 x 0.9 cm in the mid parenchyma, posterior acoustic enhancement and enhancement of the posterior wall. Second left renal finding 1.25 x 1.04 x 1.26 cm adjacent to the renal sinus with enhancement of the posterior wall posterior acoustic enhancement. Irregular hypoechoic mass left inferior renal sinus 1.8 x 1.55 x 1.52 cm. The bladder shows normal shape size and contour. Both ureteral jets are visualized. Measurements: Right Kidney: 10.7 x 3.9 x 4.0 cm Left Kidney: 11.6 x 4.6 x 5.3 cm Bladder Prevoid: 278.2 cc Postvoid: 50.2 cc IMPRESSION: 1. Bilateral renal hypoechoic foci statistically small cysts. Not all demonstrate the complete characteristics of simple cysts. Not present in 2021. Renal ultrasound follow-up in six months or CT abdomen/pelvis renal mass protocol recommended. 2. Small post void residual. Both ureteral jets are visualized. *This report is generated using voice recognition reporting (ColoWrap). On occasion ChoozOn (d.b.a. Blue Kangaroo)cribe erroneously drops words from the report or replaces the spoken word with similar sounding words. Please call with any questions/concerns regarding this report.* Dictated and transcribed 11/05/24/dpd This report has been electronically signed and approved by the interpreting radiologist. Normal Not Available BI MAMMOGRAM SCREENING TOMOS YNTHESIS BILATERALon 10-28-2024 BI MAMMOGRAM SCREENING TOMOSYNTHESIS BILATERAL This is a summary report. The complete report is available in the patient's medical record. If you cannot access the medical record, please contact the sending organization for a detailed fax or copy. Examination: BI MAMMOGRAM SCREENING TOMOSYNTHESIS BILATERAL Clinical History: screening Technique: Screening digital mammography study of both breasts was performed with 2-D and 3-D tomosynthesis imaging. Study was compared to the prior exam dated 10/09/2023. Findings: There is no evidence of interval dominant spiculated mass, grouped microcalcifications, or skin thickening which would be suggestive of malignancy. Likely small intramammary lymph node on the left posterolaterally similar to the prior study. A few benign-appearing calcifications are noted bilaterally. Axillary lymph nodes noted on the right with partially visualized axillary lymph nodes suggested on the left. IMPRESSION: Impression: No specific evidence of malignancy seen in either breast. BIRADS 2 - Benign Findings DENSITY: There are scattered areas of fibroglandular density. FOLLOW-UP: Routine Screening Mammogram ELECTRONICALLY SIGNED BY: Rustam Ovalles M.D. Normal Not Available Urinalysis macro (dipstick) panel (U)on 10-28-2024 Bilirubin, UA Negative Negative - 4(70) +++ mg/dL [facility] Blood, UA Positive Negative - 50 Dino/mcL [facility] Clarity, UA Clear [facility] Color, UA Light Yellow [facility] Glucose, UA Positive Negative - 2000(110) ++++ mg/dL [facility] Interpretation and review of laboratory results Abnormal [facility] Ketones, UA Negative Negative - 160(16) ++++ mg/dL [facility] Leukocytes, UA Negative Negative - 500+++ Thaddeus/mcL [facility] Nitrite, UA Negative Negative - Positive [facility] pH, UA 5 5 - 9 [facility] Protein, UA Negative Negative - 2000(20) ++++ mg/dL [facility] Spec Grav, UA 1.015 1 - 1.03 [facility] Urobilinogen, UA 1.0 0.2 - 12 mg/dL [facility] No Panel Informationon 10-16 [facility] Laboratory - Microbiology an d Antimicrobial susceptibilityon 10-14-2024 SARS-CoV-2 (COVID-19) RNA CHRISTIANA+probe Ql (Unsp spec) Negative [facility] No Panel Informationon 10-14 FLU A Negative [facility] FLU B Negative [facility] Interpretation and review of laboratory results Normal [facility] Laboratory - Hematology and Cell countson 09-16-2024 HbA1c (Bld) [Mass fraction] 6.7 % [facility] No Panel Informationon 09-16 Interpretation and review of laboratory results Abnormal [facility] Hepatic Panelon 09-03-2024 Albumin [Mass/Vol] 4.6 g/dL Normal 3.5-5.7 [facility] Comment on above: Performed By: #### P T, HEPATIC #### [address] Albumin/Globulin [Mass ratio] 1.6 {ratio} Normal [facility] Comment on above: Performed By: #### P T, HEPATIC #### [address] ALP [Catalytic activity/Vol] 58 U/L Normal 34-104 [facility] Comment on above: Result Comment: PERF ORMED BY: [place] [address] PATHOLOGIST MACHINE COREMAKER RALPH RIOS M.D. Performed By: #### P T, HEPATIC #### [address] ALT [Catalytic activity/Vol] 40 U/L Normal 7-52 [facility] Comment on above: Performed By: #### P T, HEPATIC #### [place] [address] [place] AST [Catalytic activity/Vol] 32 U/L Normal 13-39 [facility] Comment on above: Performed By: #### P T, HEPATIC #### [address] Bilirubin [Mass/Vol] 0.5 mg/dL Normal 0.3-1.0 [facility] Comment on above: Performed By: #### P T, HEPATIC #### [address] Bilirubin,Indirect 0.4 mg/dL Normal [facility] Comment on above: Performed By: #### P T, HEPATIC #### [address] Bilirubin.indirect [Mass/Vol] 0.10 mg/dL Normal 0.03-0.18 [facility] Comment on above: Performed By: #### P T, HEPATIC #### [address] Globulin (S) [Mass/Vol] 2.8 g/dL Normal T [facility] Comment on above: Performed By: #### P T, HEPATIC #### [address] Protein [Mass/Vol] 7.4 g/dL Normal 6.4-8.9 [facility] Comment on above: Performed By: #### P T, HEPATIC #### [address] Prothrombin Time INRon 09-03 INR Coag (PPP) [Relative time] 1.0 {INR} Normal [facility] [...] heart valves: 3 - 4.5 PERFORMED BY: [place] [address] PATHOLOGIST MACHINE COREMAKER RALPH RIOS M.D. Performed By: #### P T, HEPATIC #### [address] PT Coag (PPP) [Time] 11.5 s Normal 9.0-12.9 [facility] Comment on above: Result Comment: A matocrit value greater than 55% may lead to inaccurate results in coagulation testing. Patients having hematocrit values >55% require a special collection tube for coagulation studies. Please contact the laboratory at [phone] for redraw instructions. Performed By: #### P T, HEPATIC #### [facility] [address] [facility] PTH, INTRAOPERATIVEon 10-20-2023 PTH, INTACT 15 pg/mL 15 - 65 pg/mL [facility] Comment on above: Performed at: [address] [id number] Community Service Specialist: Ernesto Beebe PhD, Phone: [phone] [facility] ALL MAGNESIUMon 08-19-2024 Magnesium [Mass/Vol] 2.1 mg/dL 1.8 - 2 .4 mg/dL [facility] ALL RENAL FUNCTION PANELon 10-19-2023 Albumin [Mass/Vol] 4.2 g/dL 3.4 - 5.0 g/dL [facility] Anion gap [Moles/Vol] 14.8 mmol/L [facility] Calcium [Mass/Vol] 10.4 mg/dL High 8.5 - 10. 1 mg/dL [facility] Chloride [Moles/Vol] 100 mmol/L 98 - 10 7 mmol/L [facility] CO2 [Moles/Vol] 30.4 mmol/L 21.0 - 32.0 mmol/L [facility] Creatinine [Mass/Vol] 1.16 mg/dL High 0.55 - 1.02 mg/dL [facility] GFR/1.73 sq M.predicted CKD-EPI (S/P/Bld) [Vol rate/Area] 56 Low >=60 mL/min/1.73m 2 [facility] Glucose [Mass/Vol] 127 mg/dL High 74 - 106 mg/dL [facility] Phosphate [Mass/Vol] 4.6 mg/dL 2.6 - 4 .7 mg/dL [facility] Potassium [Moles/Vol] 4.2 mmol/L 3.5 - 5.1 mmol/L [facility] Sodium [Moles/Vol] 141 mmol/L 136 - 145 mmol/L [facility] TBH EGFR-NON AF BHUTANESE 46 Low >=6 0 mL/min/1.73m 2 [facility] Urea nitrogen [Mass/Vol] 20 mg/dL High 7.0 - 18.0 mg/dL [facility] Urea nitrogen/Creatinine [Mass ratio] 17.2 mg/mg [facility] ALL URIC ACIDon 08-19-2024 Urate [Mass/Vol] 6.1 mg/dL High 2.6 - 6.0 mg/dL [facility] CBC WITH PLATELET NO DI FFERENTIALon 08-19-2024 Erythrocyte distribution width (RBC) [Ratio] 14.1 % 11.0 - 15.0 % [facility] Hematocrit (Bld) [Volume fraction] 52.2 % High 36.0 - 48.0 % [facility] Hemoglobin (Bld) [Mass/Vol] 16.7 g/dL High 12.0 - 16.0 g/dL [facility] Interpretation and review of laboratory results Abnormal [facility] MCH (RBC) [Entitic mass] 27.6 pg 26. 7 - 34.0 pg [facility] MCHC (RBC) [Mass/Vol] 32 g/dL 29.9 - 35.2 g/dL [facility] MCV (RBC) [Entitic vol] 86.4 fL 81.0 - 99.0 fL [facility] Platelet mean volume (Bld) [Entitic vol] 9.8 fL 9.5 - 13.5 fL [facility] TBH PLT 193 [facility] TB RBC 6.04 High [facility] TB WBC 8 [facility] URINALYSIS, WITH MICROS COPICon 08-19-2024 BACTERIA URINE TRACE Abnormal NONE SEEN #/HPF [facility] BILIRUBIN URINE Negative NEGATIVE [facility] BLOOD URINE TRACE-L NEGATIVE [facility] CAST SEEN? NONE SEEN NONE SEEN #/LPF [facility] Clarity (U) CLEAR CLEAR [facility] Color (U) LT. YELLOW YELLOW [facility] CRYSTALS SEEN? None Seen None Seen #/HPF [facility] GLUCOSE URINE UA >=1000 Abnormal NEGATIVE mg/dL [facility] Interpretation and review of laboratory results Abnormal [facility] Ketones Ql (U) Negative NEGATIVE mg/dL [facility] Leukocyte esterase Test strip Ql (U) Negative NEGATIVE [facility] MUCUS URINE NONE SEEN NONE SEEN [facility] NITRITE URINE Negative NEGATIVE [facility] pH (U) 6.0 [pH] 5.0 - 9.0 [facility] PROTEIN URINE Negative NEG/TRACE mg/dL [facility] SPECIFIC GRAVITY URINE 1.010 1.005 - 1.025 [facility] SQUAMOUS EPITHELIAL CELL URINE FEW Abnormal NONE/RARE #/LPF [facility] RBC 2-5 Abnormal [facility] WBC 0-2 Abnormal NONE SEEN #/HPF [facility] UROBILINOGEN URINE 0.2 EU/dL 0.2 - 1.0 EU/dL [facility] YEAST URINE SEEN Abnormal NONE SEEN [facility] Comment on above: RARE BUDDING No Panel Informationon 08-19 [facility] Interpretation and review of laboratory results Abnormal [facility] URINE T PROTEIN CREAT RA TIOon 08-19-2024 CREATININE URINE RANDOM 34.11 mg/dL 20.0 0 - 300.00 mg/dL [facility] PROTEIN CREATININE RATIO URINE 0.18 [facility] TOTAL PROTEIN URINE RANDOM <6.0 NINF - 11.9 mg/dL [facility] VITAMIN D 25 OHon 2023 VITAMIN D 55.5 ng/mL [facility] Comment on above: <20 ng/mL Vit D defi cient 20-<30 ng/mL Vit D insufficient 30-100 ng/mL Vit D sufficient >100 ng/mL Potential Toxicity HbA1c (Bld) [Mass fraction]o n 06-13-2024 [facility] Laboratory - Hematology and Cell countson 06-13-2024 HbA1c (Bld) [Mass fraction] 7.4 % [facility] Alanine aminotransferase [En zymatic activity/volume] in Serum or PlasmaOrdered By: Mt Hernandez on 12-27-2023 ALT [Catalytic activity/Vol] 53 U/L 7-52 [facility] Albumin [Mass/volume] in Ser um or Plasma by Bromocresol green (BCG) dye binding methoOrdered By: Mt Hernandez on 12-27-2023 Albumin BCG dye [Mass/Vol] 4.7 g/dL 3.5-5.7 [facility] Alkaline phosphatase [Enzyma tic activity/volume] in Serum or PlasmaOrdered By: Mt Hernandez on 12-27-2023 ALP [Catalytic activity/Vol] 65 U/L 34-104 [facility] Aspartate aminotransferase [ Enzymatic activity/volume] in Serum or PlasmaOrdered By: Mt Hernandez on 12-27-2023 AST [Catalytic activity/Vol] 45 U/L 13-39 [facility] Basophils Auto (Bld) [#/Vol] Ordered By: Mt Hernandez on 12-27-2023 Basophils (Bld) [#/Vol] 0.1 10*3/uL 0.0-0.2 [facility] Basophils/100 WBC Auto (Bld) Ordered By: Mt Hernandez on 12-27-2023 Basophils/100 WBC (Bld) 0.8 % . [facility] Bilirubin.total [Mass/volume ] in Serum or PlasmaOrdered By: Mt Hernandez on 12-27-2023 Bilirubin [Mass/Vol] 0.4 mg/dL 0.3-1.0 [facility] Calcium [Mass/volume] in Ser um or PlasmaOrdered By: Mt Hernandez on 12-27-2023 Calcium [Mass/Vol] 10.2 mg/dL 8.6-10.3 [facility] Carbon dioxide, total [Moles /volume] in Serum or PlasmaOrdered By: Mt Hernandez on 12-27-2023 CO2 [Moles/Vol] 32.2 mmol/L 21.0-31.0 [facility] Chloride [Moles/volume] in S isabella or PlasmaOrdered By: Mt Hernandez on 12-27-2023 Chloride [Moles/Vol] 97 mmol/L 98-107 [facility] Creatinine [Mass/volume] in Serum or PlasmaOrdered By: Mt Hernandez on 12-27-2023 Creatinine [Mass/Vol] 1.18 mg/dL 0.60-1.20 [facility] Eosinophils Auto (Bld) [#/Vo l]Ordered By: Mt Hernandez on 12-27-2023 Eosinophils (Bld) [#/Vol] 0.2 10*3/uL 0.0-0.45 [facility] Eosinophils/100 WBC Auto (Bl d)Ordered By: Mt Hernandez on 12-27-2023 Eosinophils/100 WBC (Bld) 1.9 % . [facility] Erythrocyte distribution wid th Auto (RBC) [Ratio]Ordered By: Mt Hernandez on 12-27-2023 Erythrocyte distribution width (RBC) [Ratio] 14.4 % 11.9-15.3 [facility] Globulin Calc (S) [Mass/Vol] Ordered By: Mt Hernandez on 12-27-2023 Globulin (S) [Mass/Vol] 2.6 g/dL [facility] Glucose [Mass/volume] in Ser um or PlasmaOrdered By: Mt Hernandez on 12-27-2023 Glucose [Mass/Vol] 131 mg/dL 70-100 [facility] Comment on above: ADA recommended refe rence rangeRandom Glucose Reference Range is dependent on time and content of last meal. Glucose of more than 200 mg/dL in a nonstressed, ambulatory subject supports the diagnosis of Diabetes Mellitus. Hematocrit Auto (Bld) [Volum e fraction]Ordered By: Mt Hernandez on 12-27-2023 Hematocrit (Bld) [Volume fraction] 45.7 % 34.0-46.4 [facility] Hemoglobin [Mass/volume] in BloodOrdered By: Mt Hernandez on 12-27-2023 Hemoglobin (Bld) [Mass/Vol] 15.1 g/dL 11.8-15.4 [facility] Leukocytes [#/volume] correc tarun for nucleated erythrocytes in Blood by Automated counOrdered By: Mt Hernandez on 12-27-2023 WBC corrected for nucl RBC Auto (Bld) [#/Vol] 10.2 10*3/uL 3.8-11.6 [facility] Lymphocytes Auto (Bld) [#/Vo l]Ordered By: Mt Hernandez on 12-27-2023 Lymphocytes (Bld) [#/Vol] 3.1 10*3/uL 1.00-4.8 [facility] Lymphocytes/100 WBC Auto (Bl d)Ordered By: Mt Hernandez on 12-27-2023 Lymphocytes/100 WBC (Bld) 30.7 % . [facility] MCH Auto (RBC) [Entitic mass ]Ordered By: Mt Hernandez on 12-27-2023 MCH (RBC) [Entitic mass] 28.1 pg 24.7-34.3 [facility] MCHC Auto (RBC) [Mass/Vol]Or dered By: Mt Hernandez on 12-27-2023 MCHC (RBC) [Mass/Vol] 33.1 g/dL 32.0-35.[address] MCV Auto (RBC) [Entitic vol] Ordered By: Mt Hernandez on 12-27-2023 MCV (RBC) [Entitic vol] 84.8 fL 80-100 [facility] Monocytes Auto (Bld) [#/Vol] Ordered By: Mt Hernandez on 12-27-2023 Monocytes (Bld) [#/Vol] 0.8 10*3/uL 0.0-0.8 [facility] Monocytes/100 WBC Auto (Bld) Ordered By: Mt Hernandez on 12-27-2023 Monocytes/100 WBC (Bld) 7.9 % . [facility] Neutrophils Auto (Bld) [#/Vo l]Ordered By: Mt Hernandez on 12-27-2023 Neutrophils (Bld) [#/Vol] 6.0 10*3/uL 1.8-7.7 [facility] Neutrophils/100 WBC Auto (Bl d)Ordered By: Mt Hernandez on 12-27-2023 Neutrophils/100 WBC (Bld) 58.7 % . [facility] No Panel InformationOrdered By: Mt Hernandez on 12-27-2023 Estimated GFR (CKD-EPI) 49.381 mL/Min [facility] Creatinine Clearance (Chem N/A [facility] Nucleated erythrocytes [Pres ence] in Blood by Automated countOrdered By: Mt Hernandez on 12-27-2023 Nucleated RBC Auto Ql (Bld) 0.2 /100{WBC} 0-0.5 [facility] Platelet mean volume Auto (B ld) [Entitic vol]Ordered By: Mt Hernandez on 12-27-2023 Platelet mean volume (Bld) [Entitic vol] 7.8 fL 6.3-10.7 [facility] Platelets Auto (Bld) [#/Vol] Ordered By: Mt Hernandez on 12-27-2023 Platelets (Bld) [#/Vol] 262 10*3/uL 150-450 [facility] Potassium [Moles/volume] in Serum or PlasmaOrdered By: Mt Hernandez on 12-27-2023 Potassium [Moles/Vol] 4.2 mmol/L 3.5-5.1 [facility] Protein [Mass/volume] in Ser um or PlasmaOrdered By: Mt Hernandez on 12-27-2023 Protein [Mass/Vol] 7.3 g/dL 6.4-8.9 [facility] RBC Auto (Bld) [#/Vol]Ordere d By: Mt Hernandez on 12-27-2023 RBC (Bld) [#/Vol] 5.39 10*6/uL 3.60-5.00 [facility] Serum or plasma albumin/glob ulin mass ratioOrdered By: Mt Hernandez on 12-27-2023 Albumin/Globulin [Mass ratio] 1.8 {ratio} [facility] Serum or plasma anion gap de terminationOrdered By: Mt Hernandez on 12-27-2023 Anion gap [Moles/Vol] 13.0 mmol/L 6.0-15.0 [facility] Sodium [Moles/volume] in Ser um or PlasmaOrdered By: Mt Hernandez on 12-27-2023 Sodium [Moles/Vol] 138 mmol/L 136-145 [facility] Urea nitrogen [Mass/volume] in Serum or PlasmaOrdered By: Mt Hernandez on 12-27-2023 Urea nitrogen [Mass/Vol] 22 mg/dL 7-25 [facility] WBC Auto (Bld) [#/Vol]Ordere d By: Mt Hernandez on 12-27-2023 WBC (Bld) [#/Vol] 10.2 10*3/uL 3.8-11.6 [facility] CNOVon 11-12-2023 CNOV Office Visit (OTOLST) VIVIAN DURAN ([id number]) 1950 F Date Time Provider Department 11/12/23 10:05 AM JENNI SERRANO OTOLST During your visit today, we recorded the following information about you: Jenni Serarno MD 11/12/2023 10:31 AM Signed History: Vivian [...] kidney disease) stage 3, GFR 30-59 ml/min ([facility]) DM type 2 (diabetes mellitus, type 2) ([facility]) HTN (hypertension) Hypothyroidism Mixed hyperlipidemia Overactive bladder [...] of lesions. TMs clear and mobile. Neurologic: acreage reporter II-XII grossly intact. Assessment/Plan: Reassured no apparent oral lesion. 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 F/up prn. Medical Decision Making: Problems: Low: Acute, uncomplicated illness or injury Risk: Minimal: Minimal risk from testing/treatment Medical Decision Making Level: 2 - Straightforward Referring Provider: ELICIA CROSS [[id number]] Allergies As of Date: 11/12/2023 (No Known Allergies) Date Reviewed: 11/12/2023 Reviewed by: Azalia Antonio MA - Fully Assessed Reason for Visit: Consult [173] Visit Diagnosis:Oral lesion [K13.70] Order(s):CONSULT TO ENT [9008] Order #: [id number]: 1 Prescriptions as of 11/12/2023 - furosemide [...] ORAL Take by mouth as directed. - [id number]-[id number]-a lgal oil (METANX, ALGAL OIL,) 3 mg-35 mg-2 [...] Encounter Status:Closed by JENNI SERRANO on 11/12/[address] [facility] Cat 10-10-2023 CNPN Telephone (OTOL) VIVIAN DURAN ([id number]) 1950 F Date Time Provider Department 10/10/23 ELICIA CROSS [facility] During your visit today, we recorded the following information about you: Pamela Lange 10/10/2023 4:01 PM Signed [facility]oted is calling Elicia Cross APRN.CNP today [...] calling: self Call patient at: at home [phone] (home) [phone] (cell) Was an appointment scheduled: No Closing statement: Results or non-symptom based questions: Thank you for calling [facility], your call will be returned within the next business day. Elicia Ramirez APRN.CNP 10/11/2023 4:37 PM Signed Please call patient. Please let her know that I would highly recommend that she see one of our ENT legal librarian physicians. They would be able to discuss with her a biopsy either in the office or the operating room if indicated. Please assist with an appointment for Dr. Rodriguez, Dr. Pope, Dr. Serrano, Dr. Duncan, or Dr. Chowdhury at the patient's earliest convenience. Please let her know that the closest location that we would be able to provide this service would be [place]. Otherwise, we have providers in [facility], or several locations on the [facility] or in [place] that would be able to help her with this biopsy. Not appropriate for her to see PA or STRATEGY ANALYST must be scheduled with MD only. Thank you, MIGNON Shook Belinda 10/11/2023 7:46 PM Signed Patient returned call to Leann regarding the message Leann left. Patient states to call again at [phone]. Patient will accept any open slot. Allergies As of Date: 10/10/2023 (No Known Allergies) Date Reviewed: 08/10/2023 Reviewed by: Tramaine, Elicia R, COLOR LABORATORY TECHNICIAN.CIRCUIT JUDGE - Fully Assessed Reason for Visit: Appointment [186] Primary Visit Diagnosis:Oral lesion [K13.70] Order(s):CONSULT TO ENT [6340] Order #: [id number]: 1 FUTURE Prescriptions as of 03/06/2024 - [...] ORAL Take by mouth as directed. - [id number]-[id number]-a lgal oil (METANX, ALGAL OIL,) 3 mg-35 mg-2 [...] Encounter Status:Closed by PAMELA LANGE on 03/06/[address] [facility] Raúl 08-10-2023 CNOV Office Visit (OTOLCC) VIVIAN DURAN ([id number]) 1950 F Date Time Provider Department 08/10/23 8:50 AM [facility] During your visit today, we recorded the following information about you: Pulse Respiration 85/minute 17/minute Elicia Cross, COLOR LABORATORY TECHNICIAN.CIRCUIT JUDGE 08/10/2023 1:06 PM Signed Ms. Duran is [...] evaluation of middle ear function. CPT code: 74890 RIGHT EAR: Normal ME pressure and TM compliance (mobility). LEFT EAR: Normal ME pressure and TM compliance (mobility). PURE TONE AUDIOMETRY AND SPEECH TESTING Description of procedure: This test is an objective evaluation hearing sensitivity via air and bone conduction and speech recognition testing. CPT code:78905 RIGHT EAR: Hearing Sensitivity: Hearing sensitivity within [...] kidney disease) stage 3, GFR 30-59 ml/min ([facility]) DM type 2 (diabetes mellitus, type 2) ([facility]) HTN (hypertension) Hypothyroidism Mixed hyperlipidemia Overactive bladder [...] BIOTIN, ORAL Take by mouth as directed. yqetovvmq-H2-[id number]-a lgal oil (METANX, ALGAL OIL,) 3 mg-35 mg-2 mg -90.314 mg cap Take by mouth as directed. No current facility-administere d medications on file prior to visit. There [...] for lichen (more content not included)... Normal [facility] Office Visit (OTAUCC) VIVIAN DURAN ([id number]) 1950 F Date Time Provider Department 08/10/23 8:00 AM [facility] During your visit today, we recorded the following information about you: Ester Blanca AuD, [facility] 08/10/2023 10:00 AM Signed [place] AUDIOLOGIC EVALUATION REPORT Name: Vivian Duran [facility]#: [id number] Date of Service: 08/10/2023 Date of : 1950 Age: [age] year old Referred by: Elicia Cross [address] [place] [address] [place] [address] Referred for: Evaluation of the cause of disorder of hearing, tinnitus, or balance. Referral documented: In an order in [facility] Patient's major complaints: Hearing Loss/Hearing Problem. Vivian reported she has some trouble hearing/understandin g speech and some trouble hearing the dialogue [...] evaluation of middle ear function. CPT code: 65362 RIGHT EAR: Normal ME pressure and TM compliance (mobility). LEFT EAR: Normal ME pressure and TM compliance (mobility). PURE TONE AUDIOMETRY AND SPEECH TESTING Description of procedure: This test is an objective evaluation hearing sensitivity via air and bone conduction and speech recognition testing. CPT code:08130 RIGHT EAR: Hearing Sensitivity: Hearing sensitivity within [...] 3. Hearing conservation. Tania Vasquez, PUNEET/A Clinical [employer] Member Other Ranks VILLANUEVA Abbrev- iation Definition Degree of hearing sensitivity dB range WNL within normal limits WNL 0 - 20 SNHL sensorineural hearing loss Mild 20-40 CHL conductive hearing loss Moderate 40-55 MHL mixed hearing loss Moderately-Severe 55-70 WRS word recognition score Severe 70-90 ME middle ear Profound 90 + TM tympanic membrane Referring Provider: ELICIA CROSS [[id number]] Allergies As of Date: 08/10/2023 (No Known Allergies) Date Reviewed: 08/10/2023 Reviewed by: Elicia Cross APRN.CIRCUIT JUDGE - Fully Assessed Primary Visit Diagnosis:Other specified hearing loss, unspecified ear [H91.8X9] Other Visit Diagnosis:Type 2 diabetes mellitus with stage 3a chronic kidney disease, without long-term current use of insulin (HCC) [E11.22, N18.31] Order(s):HEARING TEST/AUDIOGRAM [1576683] Order #: [id number]: 1 Prescriptions as of 08/10/2023 - furosemide [...] mouth as (more content not included)... Normal [facility] [facility] PTH INTACTon 02-13-2023 PTH, Intact 27 pg/mL Normal 15-65 [facility] Comment on above: Performed By: #### S TEDDY #### [facility] [address] [address] [address] Deloris Nolan HEMOGRAM AND PLATELon 2022 Hematocrit (Bld) [Volume fraction] 41.9 % Normal 36.0-48.0 [facility] Comment on above: Performed By: #### S WAGNERM #### [facility] [address] [address] [address] Deloris Nolan Hemoglobin (Bld) [Mass/Vol] 12.9 g/dL Normal 12.0-16.0 [facility] Comment on above: Performed By: #### S WAGNERM #### [facility] [address] [address] [address] Deloris Nolan MCH (RBC) [Entitic mass] 25.9 pg Critically low 26.7-34 .0 [facility] Comment on above: Performed By: #### S WAGNERM #### [facility] [address] [address] [address] Deloris Nolan MCHC (RBC) [Mass/Vol] 30.8 g/dL Normal 29.9-35.2 [facility] Comment on above: Performed By: #### S MOOTHM #### [facility] [address] [address] [address] Deloris Nolan MCV (RBC) [Entitic vol] 84.1 fL Normal 81.0-99.0 [facility] Comment on above: Performed By: #### S MOOTHM #### [facility] [address] [address] [address] Deloris Nolan PLT 212 103/ul Normal 150-450 [facility] Comment on above: Performed By: #### S MOOTHM #### [facility] [address] [place] [address] Dr. Deloris Nolan RBC 4.98 106/ul Normal 4.20-5.40 [facility] Comment on above: Performed By: #### S MOOTHM #### [facility] [address] [place] [address] Dr. Deloris Nolan WBC 7.4 103/ul Normal 4.0-11.0 [facility] Comment on above: Performed By: #### S MOOTHM #### [facility] [address] [place] [address] Dr. Deloris Nolan RENAL FUNCTION PANELon 02-12 Albumin [Mass/Vol] 3.6 g/dL Normal 3.4-5.0 [facility] Comment on above: Performed By: #### A LPHA-1 #### [facility] [address] [address] [address] Deloris Nolan Calcium [Mass/Vol] 9.3 mg/dL Normal 8.5-10.1 [facility] Comment on above: Performed By: #### A LPHA-1 #### [facility] [address] [address] [address] Deloris Nolan Chloride [Moles/Vol] 104 mmol/L Normal 98-107 [facility] Comment on above: Performed By: #### A LPHA-1 #### [facility] [address] [address] [address] Deloris Nolan CO2 [Moles/Vol] 28.3 mmol/L Normal 21.0-32.0 [facility] Comment on above: Performed By: #### A LPHA-1 #### [facility] [address] [address] [address] Deloris Nolan Creatinine [Mass/Vol] 1.00 mg/dL Normal 0.55-1.02 [facility] Comment on above: Performed By: #### A LPHA-1 #### [facility] [address] [address] [address] Deloris Nolan EGFR-AF BHUTANESE >60 Normal >=60 [facility] Comment on above: Performed By: #### A LPHA-1 #### [facility] [address] [address] [address] Deloris Nolan EGFR-NON AF [place]ESE 55 mL/min/1.73m2 Critically low >=60 [facility] Comment on above: Performed By: #### A LPHA-1 #### [facility] [address] [address] [address] Deloris Nolan Glucose [Mass/Vol] 155 mg/dL Critically high 74-106 [facility] Comment on above: Performed By: #### A LPHA-1 #### [facility] [address] [address] [address] Deloris Nolan Phosphate [Mass/Vol] 3.8 mg/dL Normal 2.6-4.7 [facility] Comment on above: Performed By: #### A LPHA-1 #### [facility] [address] [address] [address] Deloris Nolan Potassium [Moles/Vol] 4.4 mmol/L Normal 3.5-5.1 [facility] Comment on above: Performed By: #### A LPHA-1 #### [facility] [address] [address] [address] Deloris Nolan Sodium [Moles/Vol] 140 mmol/L Normal 136-145 [facility] Comment on above: Performed By: #### A LPHA-1 #### [facility] [address] [place] [address] Dr. Deloris Nolan Urea nitrogen [Mass/Vol] 21.0 mg/dL Critically high 7.0-18 .0 [facility] Comment on above: Performed By: #### A LPHA-1 #### [facility] [address] [place] [address] Dr. Deloris Noaln UA RANDOM W/MICROSCOPICon BACTERIA NONE SEEN Normal NONE SEEN [facility] Comment on above: Performed By: #### U AMIC #### [facility] [address] [place] [address] Dr. Deloris Nolan Bilirubin Ql (U) Negative Normal NEGATIVE [facility] Comment on above: Performed By: #### U AMIC #### [facility] [address] [place] [address] Dr. Deloris Nolan CAST NONE SEEN Normal NONE SEEN [facility] Comment on above: Performed By: #### U AMIC #### [facility] [address] [place] [address] Dr. Deloris Nolan Clarity (U) CLEAR Normal CLEAR [facility] Comment on above: Performed By: #### U AMIC #### [facility] [address] [place] [address] Dr. Deloris Nolan Color (U) LT. YELLOW Normal YELLOW [facility] Comment on above: Performed By: #### U AMIC #### [facility] [address] [place] [address] Dr. Deloris Nolan Crystals LM Nom (Urine sed) NONE SEEN Normal NONE SEEN [facility] Comment on above: Performed By: #### U AMIC #### [facility] [address] [place] [address] Dr. Deloris Nolan Epithelial cells LM Ql (Urine sed) FEW Abnormal NONE SEEN /RARE [facility] Comment on above: Result Comment: Prev iously reported as: NONE SEEN On 02/12/2023 10:35 By EM6 Performed By: #### U AMIC #### [facility] [address] [address] [address] Deloris Nolan Glucose Ql (U) >1000 Abnormal NEGATIVE [facility] Comment on above: Performed By: #### U AMIC #### [facility] [address] [address] [address] Deloris Nolan Hemoglobin Ql (U) SMALL Abnormal NEGATIVE [facility] Comment on above: Performed By: #### U AMIC #### [facility] [address] [address] [address] Deloris Nolan Ketones Ql (U) Negative Normal NEGATIVE [facility] Comment on above: Performed By: #### U AMIC #### [facility] [address] [address] [address] Deloris Nolan LEUKOCYTES Negative Normal NEGATIVE [facility] Comment on above: Performed By: #### U AMIC #### [facility] [address] [address] [address] Deloris Nolan MUCOUS NONE SEEN Normal NONE SEEN [facility] Comment on above: Performed By: #### U AMIC #### [facility] [address] [address] [address] Deloris Nolan Nitrite Ql (U) Negative Normal NEGATIVE [facility] Comment on above: Performed By: #### U AMIC #### [facility] [address] [address] [address] Deloris Nolan pH (U) 6.5 [pH] Normal 5-9 [facility] Comment on above: Performed By: #### U AMIC #### [facility] [address] [address] [address] Deloris Nolan RBC 5-10 Abnormal 0-2 [facility] Comment on above: Result Comment: Prev iously reported as: NONE SEEN On 02/12/2023 10:35 By EM6 Performed By: #### U AMIC #### [facility] [address] [place] [address] Dr. Deloris Nolan SPEC GRAVITY 1.015 Normal 1.005-<=1.[address] [place] [address] Comment on above: Performed By: #### U AMIC #### [facility] [address] [address] [address] Deloris Nolan UA PROTEIN Negative Normal NEGATIVE/ TRACE [facility] Comment on above: Performed By: #### U AMIC #### [facility] [address] [address] [address] Deloris Nolan Urobilinogen Qn (U) 0.2 {Juan Diego'U}/dL Normal 0.2 - 1. 0 [facility] Comment on above: Performed By: #### U AMIC #### [facility] [address] [address] [address] Deloris Nolan WBC NONE SEEN Normal NONE SEEN [facility] Comment on above: Performed By: #### U AMIC #### [facility] [address] [place] [address] Dr. Deloris Nolan URIC ACID SERUMon 02-12-2023 Urate [Mass/Vol] 6.1 mg/dL Critically high 2.6-6.0 [facility] Comment on above: Performed By: #### A LPHA-1 #### [facility] [address] [address] [address] Deloris Nolan URINE T PROTEIN CREAT RATIOo n 02-12-2023 Protein (U) [Mass/Vol] 8.7 mg/dL Normal <=12.0 [facility] Comment on above: Performed By: #### S BIBOTHM #### [facility] [address] [address] [address] Deloris Nolan UR PROT CREAT RAT 0.10 Normal [facility] Comment on above: Performed By: #### S MOOTHM #### [facility] [address] [address] [address] Deloris Nolan URINE CREAT 84.26 mg/dL Normal 20.00-300.00 [facility] Comment on above: Performed By: #### S BIBOTHM #### [facility] [address] [place] [address] Dr. Deloris Nolan VITAMIN D 25 OHon 02-12-2023 VIT D 25-OH 41.6 ng/mL Normal [facility] Comment on above: Performed By: #### V ITAD #### [facility] [address] [address] [address] Deloris Nolan VIT D RANGES SEE BELOW Normal [facility] Comment on above: Result Comment: <20 ng/mL Vit D deficient 20 - <30 ng/mL Vit D insufficient 30 - 100 ng/mL Vit D sufficient >100 ng/mL Potential Toxicity Performed By: #### V ITAD #### [facility] [address] [place], [place] [address] Dr. Deloris Nolan XR Chest 2 Views*on [...] by Estrada Cummins on 11/13/2022 1510 Normal [facility] SCREENING MAMMOGRAM W/LAKESHA, BILATERAL*on 10-04-2022 SCREENING [...] VERY IMPORTANT TO YOUR HEALTH. THE CURRENT [place] [employer] GUIDELINES RECOMMENDS ANNUAL MAMMOGRAPHY BEGINNING AT AGE 42 THIS FACILITY USES A REMINDER SYSTEM TO ENSURE ALL PATIENTS RECEIVE REMINDER NOTIFICATIONS AT THE APPROPRIATE TIME BASED ON THE RECOMMENDATIONS OF THIS EXAM. Report reported and signed by Ravi Naranjo on 10/04/2022 1544 Normal [facility] [id number] 2021 Gvxbs-3-Liltcheavbe, Serum 144 mg/dL Normal 101-187 [facility] Comment on above: Performed By: #### A LPHA-1 #### [facility] [address] [place] [address] Dr. Deloris Nolan GREG EIA W/REFLEX 9 BIOMARKER Son 08-30-2022 GREG Direct Negative Normal Negative [facility] Comment on above: Performed By: #### A NARF9 #### [facility] [address] [place] [address] Dr. Deloris Nolan CERULOPLASMINon 08-30-2022 Ceruloplasmin 20.6 mg/dL Normal 19.0-39.0 [facility] Comment on above: Performed By: #### S MOOTHM #### [facility] [address] [place] [address] Dr. Deloris Nolan SMOOTH MUSCLE ANTIBODYon Actin (Smooth Muscle) Antibody 7 Units Normal 0-19 [facility] Comment on above: Result Comment: Nega tive 0 - 19 Weak positive 20 - 30 Moderate to strong positive >30 . Actin Antibodies are found in 52-85% of patients with autoimmune hepatitis or chronic active hepatitis and in 22% of patients with primary biliary cirrhosis. Performed By: #### S MOOTHM #### [facility] [address] [place] [address] Dr. Deloris Nolan CBC AUTO DIFFon 2022 BASO # 0.0 103/ul Normal 0.0-0.1 [facility] Comment on above: Performed By: #### S MOOTHM #### [facility] [address] [place] [address] Dr. Deloris Nolan Basophils/100 WBC (Bld) 0.5 % Normal 0.2-2.0 [facility] Comment on above: Performed By: #### S MOOTHM #### [facility] [address] [place] [address] Dr. Deloris Nolan EO # 0.3 103/ul Normal 0.0-0.7 [facility] Comment on above: Performed By: #### S MOOTHM #### [facility] [address] [place] [address] Dr. Deloris Nolan Eosinophils/100 WBC (Bld) 3.2 % Normal 0.9-7.0 [facility] Comment on above: Performed By: #### S MOOTHM #### [facility] [address] [place] [address] Dr. Deloris Nolan Erythrocyte distribution width (RBC) [Ratio] 13.6 % Normal 11.0-15.0 [facility] Comment on above: Performed By: #### S BIBOTHM #### [facility] [address] [place] [address] Dr. Deloris Nolan Hematocrit (Bld) [Volume fraction] 40.6 % Normal 36.0-48.0 [facility] Comment on above: Performed By: #### S BIBOTHM #### [facility] [address] [place] [address] Dr. Deloris Nolan Hemoglobin (Bld) [Mass/Vol] 13.6 g/dL Normal 12.0-16.0 [facility] Comment on above: Performed By: #### S BIBOTHM #### [facility] [address] [place] [address] Dr. Deloris Nolan IG # 0.03 10e3/ul Normal 0.00-0.03 [facility] Comment on above: Performed By: #### S BIBOTHM #### [facility] [address] [place] [address] Dr. Deloris Nolan IG % 0.4 % Normal 0.0-0.5 [facility] Comment on above: Performed By: #### S BIBOTHM #### [facility] [address] [place] [address] Dr. Deloris Nolan LYMPH # 2.4 103/ul Normal 1.2-3.8 [facility] Comment on above: Performed By: #### S BIBOTHM #### [facility] [address] [place] [address] Dr. Deloris Nolan Lymphocytes/100 WBC (Bld) 31.6 % Normal 20.5-60.0 [facility] Comment on above: Performed By: #### S BIBOTHM #### [facility] [address] [place] [address] Dr. Deloris Nolan MANUAL DIFF REQ NO Normal [facility] Comment on above: Performed By: #### S BIBOTHM #### [facility] [address] [place] [address] Dr. Deloris Nolan MCH (RBC) [Entitic mass] 29.3 pg Normal 26.7-34.0 [facility] Comment on above: Performed By: #### S BIBOTHM #### [facility] [address] [place] [address] Dr. Deloris Nolan MCHC (RBC) [Mass/Vol] 33.5 g/dL Normal 29.9-35.2 [facility] Comment on above: Performed By: #### S AWGNERM #### [facility] [address] [place] [address] Dr. Deloris Nolan MCV (RBC) [Entitic vol] 87.5 fL Normal 81.0-99.0 [facility] Comment on above: Performed By: #### S BIBOTHM #### [facility] [address] [place] [address] Dr. Deloris Nolan MONO # 0.6 103/ul Normal 0.3-0.8 [facility] Comment on above: Performed By: #### S BIBOTHM #### [facility] [address] [place] [address] Dr. Deloris Nolan Monocytes/100 WBC (Bld) 7.9 % Normal 1.7-12.0 [facility] Comment on above: Performed By: #### S BIBOTHM #### [facility] [address] [place] [address] Dr. Deloris Nolan NEUT # 4.3 103/ul Normal 1.4-6.5 [facility] Comment on above: Performed By: #### S MOOTHM #### [facility] [address] [place] [address] Dr. Deloris Nolan Neutrophils/100 WBC (Bld) 56.4 % Normal 43.0-75.0 [facility] Comment on above: Performed By: #### S BIBOTHM #### [facility] [address] [place] [address] Dr. Deloris Nolan Platelet mean volume (Bld) [Entitic vol] 9.0 fL Critically low 9.5-13.5 [facility] Comment on above: Performed By: #### S WAGNERM #### [facility] [address] [address] [address] Deloris Nolan PLT 201 103/ul Normal 150-450 [facility] Comment on above: Performed By: #### S WAGNERM #### [facility] [address] [address] [address] Deloris Nolan RBC 4.64 106/ul Normal 4.20-5.40 [facility] Comment on above: Performed By: #### S WAGNERM #### [facility] [address] [address] [address] Deloris Nolan WBC 7.7 103/ul Normal 4.0-11.0 [facility] Comment on above: Performed By: #### S WAGNERM #### [facility] [address] [address] [address] Deolris Nolan FERRITINon 2022 Ferritin [Mass/Vol] 102.0 ng/mL Normal 8.0-252.0 [facility] Comment on above: Performed By: #### S WAGNERM #### [facility] [address] [address] [address] Deloris Nolan IRON AND TIBCon 2022 % SATURATION 17.1 % Normal [facility] Comment on above: Performed By: #### S WAGNERM #### [facility] [address] [address] [address] Deloris Nolan Iron [Mass/Vol] 68.0 ug/dL Normal 50.0-170.0 [facility] Comment on above: Performed By: #### S WAGNERM #### [facility] [address] [address] [address] Deloris Nolan TIBC DIRECT 398.0 ug/dL Normal 250.0-450.0 [facility] Comment on above: Performed By: #### S WAGNERM #### [facility] [address] [address] [address] Deloris Nolan LIVER PROFILEon 2022 Albumin [Mass/Vol] 3.8 g/dL Normal 3.4-5.0 [facility] Comment on above: Performed By: #### S MOOTHM #### [facility] [address] [address] [address] Deloris Nolan Albumin/Globulin [Mass ratio] 0.9 {ratio} Normal [facility] Comment on above: Performed By: #### S MOOTHM #### [facility] [address] [address] [address] Deloris Nolan ALP [Catalytic activity/Vol] 71 U/L Normal 46-116 [facility] Comment on above: Performed By: #### S MOOTHM #### [facility] [address] [place] [address] Dr. Deloris Nolan ALT [Catalytic activity/Vol] 109 U/L Critically high 14-59 [facility] Comment on above: Performed By: #### S MOOTHM #### [facility] [address] [place] [address] Dr. Deloris Nolan AST [Catalytic activity/Vol] 87 U/L Critically high 15-37 [facility] Comment on above: Performed By: #### S MOOTHM #### [facility] [address] [place] [address] Dr. Deloris Nolan BILI, CONJUGATED 0.1 mg/dL Normal 0.0-0.2 [facility] Comment on above: Performed By: #### S MOOTHM #### [facility] [address] [place] [address] Dr. Deloris Nolan Bilirubin [Mass/Vol] 0.3 mg/dL Normal 0.2-1.0 [facility] Comment on above: Performed By: #### S MOOTHM #### [facility] [address] [place] [address] Dr. Deloris Nolan Globulin (S) [Mass/Vol] 4.0 g/dL Normal [facility] Comment on above: Performed By: #### S MOOTHM #### [facility] [address] [place] [address] Dr. Deloris Nolan Protein [Mass/Vol] 7.8 g/dL Normal 6.4-8.2 [facility] Comment on above: Performed By: #### S WAGNERM #### [facility] [address] [place] [address] Dr. Deloris Nolan PROTIMEon 2022 INR Coag (PPP) [Relative time] 1.06 {INR} Normal [facility] Comment on above: Performed By: #### S WAGNERM #### [facility] [address] [place] [address] Dr. Deloris Nolan INR GUIDELINES SEE BELOW Normal [facility] Comment on above: Result Comment: NILDA RED INR: 2.0 - 3.0 CONDITIONS NOT LISTED BELOW 2.5 - 3.5 FOR PROSTHETIC HEART VALVE REPLACEMENT 2.5 - 3.5 RECURRENT THROMBOSIS Performed By: #### S WAGNERM #### [facility] [address] [place] [address] Dr. Deloris Nolan PT Coag (PPP) [Time] 11.4 s Normal 9.0-11.6 [facility] Comment on above: Performed By: #### S WAGNERM #### [facility] [address] [place] [address] Dr. Deloris Noaln HEMOGRAM AND PLATELon 2021 Hematocrit (Bld) [Volume fraction] 42.9 % Normal 36.0-48.0 [facility] Comment on above: Performed By: #### H H #### [facility] [address] [place] [address] Dr. Deloris Nolan Hemoglobin (Bld) [Mass/Vol] 14.0 g/dL Normal 12.0-16.0 [facility] Comment on above: Performed By: #### H H #### [facility] [address] [place] [address] Dr. Deloris Nolan MCH (RBC) [Entitic mass] 29.1 pg Normal 26.7-34.0 [facility] Comment on above: Performed By: #### H H #### [facility] [address] [address] [address] Deloris Nolan MCHC (RBC) [Mass/Vol] 32.6 g/dL Normal 29.9-35.2 [facility] Comment on above: Performed By: #### H H #### [facility] [address] [place] [address] Dr. Deloris Nolan MCV (RBC) [Entitic vol] 89.2 fL Normal 81.0-99.0 [facility] Comment on above: Performed By: #### H H #### [facility] [address] [place] [address] Dr. Deloris Nolan PLT 237 103/ul Normal 150-450 [facility] Comment on above: Performed By: #### H H #### [facility] [address] [place] [address] Dr. Deloris Nolan RBC 4.81 106/ul Normal 4.20-5.40 [facility] Comment on above: Performed By: #### H H #### [facility] [address] [place] [address] Dr. Deloris Nolan WBC 8.2 103/ul Normal 4.0-11.0 [facility] Comment on above: Performed By: #### H H #### [facility] [address] [place] [address] Dr. Deloris Nolan MAGNESIUMon 08-08-2022 Magnesium [Mass/Vol] 2.0 mg/dL Normal 1.8-2.4 [facility] Comment on above: Performed By: #### M G, URIC, RENAL #### [facility] [address] [place] [address] Dr. Deloris Nolan RENAL FUNCTION PANELon 08-08 Albumin [Mass/Vol] 3.7 g/dL Normal 3.4-5.0 [facility] Comment on above: Performed By: #### M G, URIC, RENAL #### [facility] [address] [place] [address] Dr. Deloris Nolan Calcium [Mass/Vol] 9.0 mg/dL Normal 8.5-10.1 [facility] Comment on above: Performed By: #### M G, URIC, RENAL #### [facility] [address] [address] [address] Deloris Nolan Chloride [Moles/Vol] 100 mmol/L Normal 98-107 [facility] Comment on above: Performed By: #### M G, URIC, RENAL #### [facility] [address] [place] [address] Dr. Deloris Nolan CO2 [Moles/Vol] 30.6 mmol/L Normal 21.0-32.0 [facility] Comment on above: Performed By: #### M G, URIC, RENAL #### [facility] [address] [place] [address] Dr. Deloris Nolan Creatinine [Mass/Vol] 0.94 mg/dL Normal 0.55-1.02 [facility] Comment on above: Performed By: #### M G, URIC, RENAL #### [facility] [address] [place] [address] Dr. Deloris Nolan EGFR-AF BH[place] >60 Normal >=60 [facility] Comment on above: Performed By: #### M G, URIC, RENAL #### [facility] [address] [place] [address] Dr. Deloris Nolan EGFR-NON AF [place] 59 mL/min/1.73m2 Critically low >=60 [facility] Comment on above: Performed By: #### M G, URIC, RENAL #### [facility] [address] [place] [address] Dr. Deloris Nolan Glucose [Mass/Vol] 161 mg/dL Critically high 74-106 [facility] Comment on above: Performed By: #### M G, URIC, RENAL #### [facility] [address] [place] [address] Dr. Deloris Nolan Phosphate [Mass/Vol] 3.3 mg/dL Normal 2.6-4.7 [facility] Comment on above: Performed By: #### M G, URIC, RENAL #### [facility] [address] [place] [address] Dr. Deloris Nolan Potassium [Moles/Vol] 4.3 mmol/L Normal 3.5-5.1 [facility] Comment on above: Performed By: #### M G, URIC, RENAL #### [facility] [address] [place] [address] Dr. Deloris Nolan Sodium [Moles/Vol] 136 mmol/L Normal 136-145 [facility] Comment on above: Performed By: #### M Giovanny, URIC, RENAL #### [facility] [address] [place] [address] Dr. Deloris Nolan Urea nitrogen [Mass/Vol] 15.0 mg/dL Normal 7.0-18.0 [facility] Comment on above: Performed By: #### M Giovanny, URIC, RENAL #### [facility] [address] [place] [address] Dr. Deloris Nolan UA RANDOM W/MICROSCOPICon BACTERIA SMALL Abnormal NONE SEEN [facility] Comment on above: Performed By: #### S MOOTHM #### [facility] [address] [place] [address] Dr. Deloris Nolan Bilirubin Ql (U) Negative Normal NEGATIVE [facility] Comment on above: Performed By: #### S MOOTHM #### [facility] [address] [place] [address] Dr. Deloris Nolan CAST NONE SEEN Normal NONE SEEN [facility] Comment on above: Performed By: #### S MOOTHM #### [facility] [address] [place] [address] Dr. Deloris Nolan Clarity (U) CLEAR Normal CLEAR [facility] Comment on above: Performed By: #### S MOOTHM #### [facility] [address] [place] [address] Dr. Deloris Nolan Color (U) LT. YELLOW Normal YELLOW [facility] Comment on above: Performed By: #### S MOOTHM #### [facility] [address] [place] [address] Dr. Deloris Nolan Crystals LM Nom (Urine sed) NONE SEEN Normal NONE SEEN [facility] Comment on above: Performed By: #### S MOOTHM #### [facility] [address] [address] [address] Deloris Nolan Epithelial cells LM Ql (Urine sed) FEW Abnormal NONE SEEN /RARE [facility] Comment on above: Performed By: #### S MOOTHM #### [facility] [address] [address] [address] Deloris Nolan Glucose Ql (U) Negative Normal NEGATIVE The [facility] Comment on above: Performed By: #### S MOOTHM #### [facility] [address] [address] [address] Deloris Nolan Hemoglobin Ql (U) Negative Normal NEGATIVE The [facility] Comment on above: Performed By: #### S MOOTHM #### [facility] [address] [address] [address] Deloris Nolan Ketones Ql (U) Negative Normal NEGATIVE The [facility] Comment on above: Performed By: #### S MOOTHM #### [facility] [address] [address] [address] Deloris Nolan LEUKOCYTES SMALL Abnormal NEGATIVE [facility] Comment on above: Performed By: #### S MOOTHM #### [facility] [address] [address] [address] Deloris Nolan MUCOUS NONE SEEN Normal NONE SEEN [facility] Comment on above: Performed By: #### S MOOTHM #### [facility] [address] [address] [address] Deloris Nolan Nitrite Ql (U) Negative Normal NEGATIVE The [facility] Comment on above: Performed By: #### S MOOTHM #### [facility] [address] [address] [address] Deloris Nolan pH (U) 6.0 [pH] Normal 5-9 [facility] Comment on above: Performed By: #### S MOOTHM #### [facility] [address] [place] [address] Dr. Deloris Nolan RBC NONE SEEN Abnormal 0-2 [facility] Comment on above: Performed By: #### S MOOTHM #### [facility] [address] [address] [address] Deloris Nolan SPEC GRAVITY 1.015 Normal 1.005-<=1.02 5 [facility] Comment on above: Performed By: #### S MOOTHM #### [facility] [address] [address] [address] Deloris Nolan UA PROTEIN Negative Normal NEGATIVE/ TRACE [facility] Comment on above: Performed By: #### S MOOTHM #### [facility] [address] [address] [address] Deloris Nolan Urobilinogen Qn (U) 0.2 {Juan Diego'U}/dL Normal 0.2 - 1. 0 [facility] Comment on above: Performed By: #### S MOOTHM #### [facility] [address] [address] [address] Deloris Nolan WBC 2-5 Abnormal NONE SEEN [facility] Comment on above: Performed By: #### S MOOTHM #### [facility] [address] [address] [address] Deloris Nolan URIC ACID SERUMon 08-08-2022 Urate [Mass/Vol] 7.7 mg/dL Critically high 2.6-6.0 [facility] Comment on above: Performed By: #### M G, URIC, RENAL #### [facility] [address] [place] [address] Dr. Deloris Nolan URINE T PROTEIN CREAT RATIOo n 08-08-2022 Protein (U) [Mass/Vol] 12.2 mg/dL Critically high <=12.0 [facility] Comment on above: Performed By: #### U RTPCR #### [facility] [address] [address] [address] Deloris Nolan UR PROT CREAT RAT 0.10 Normal [facility] Comment on above: Performed By: #### U RTPCR #### [facility] [address] [address] [address] Deloris Nolan URINE CREAT 123.93 mg/dL Normal 20.00-300.00 [facility] Comment on above: Performed By: #### U RTPCR #### [facility] [address] [place], [place] [address] Dr. Deloris Nolan VITAMIN D 25 OHon 08-08-2022 VIT D 25-OH 45.3 ng/mL Normal [facility] Comment on above: Performed By: #### A LPHA-1 #### [facility] [address] [place], [place] [address] Dr. Deloris Nolan VIT D RANGES SEE BELOW Normal [facility] Comment on above: Result Comment: <20 ng/mL Vit D deficient 20 - <30 ng/mL Vit D insufficient 30 - 100 ng/mL Vit D sufficient >100 ng/mL Potential Toxicity Performed By: #### A LPHA-1 #### [facility] [address] [address] [address] 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 Shoulder w/o Righton MRI Shoulder [...] by Blanco Tanner on 05/18/2022 1247 Normal [facility] HEARING TEST/AUDIOGRAM [facility] Vital Signs Date Time Vital Sign Value Performing Clinician Facility 07-15-2025 10:13-0400 Body height 170.18 cm [facility] 07-15-2025 10:13-0400 Body mass index (BMI) [Ratio] 31.8 kg/m2 [facility] 07-15-2025 10:13-0400 Body weight 92.4 kg [facility] 06-22-2025 09:080400 Body height 170.18 cm [facility] 06-22-2025 09:08-0400 Body mass index (BMI) [Ratio] 31.6 kg/m2 [facility] 06-22-2025 09:08-0400 Body weight 91.62 kg [facility] 06-22-2025 09:08-0400 Diastolic blood pressure 74 mm[Hg] [facility] 06-22-2025 09:08-0400 Heart rate 72 /min [facility] 06-22-2025 09:08-0400 Systolic blood pressure 136 mm[Hg] [facility] 06-19-2025 09:35-0400 Body height 168.9 cm Wendy Chinchilla MD Work Phone: [facility] 06-19-2025 09:35-0400 Body mass index (BMI) [Ratio] 31.99 kg/m2 Wendy Chinchilla MD Work Phone: [facility] 06-19-2025 09:35-0400 Body weight 91.26 kg Wendy Chinchilla MD Work Phone: [facility] 06-19-2025 09:35-0400 Diastolic blood pressure 74 mm[Hg] Wendy Chinchlila MD Work Phone: [facility] 06-19-2025 09:35-0400 Heart rate 83 /min Wendy Chinchilla MD Work Phone: [facility] 06-19-2025 09:35-0400 SaO2% (BldA) [Mass fraction] 97 % Wnedy Chinchilla MD Work Phone: [facility] 06-19-2025 09:35-0400 Systolic blood pressure 122 mm[Hg] Wendy Chinchilla MD Work Phone: [facility] 06-05-2025 10:24-0400 Body height 168.9 cm Wendy Chinchilla MD Work Phone: [facility] 06-05-2025 10:24-0400 Body mass index (BMI) [Ratio] 32.72 kg/m2 Wendy Chinchilla MD Work Phone: [facility] 06-05-2025 10:24-0400 Body weight 93.35 kg Wendy Chinchilla MD Work Phone: [facility] 06-05-2025 10:24-0400 Diastolic blood pressure 70 mm[Hg] Wendy Chinchilla MD Work Phone: [facility] 06-05-2025 10:24-0400 Heart rate 93 /min Wendy Chinchilla MD Work Phone: [facility] 06-05-2025 10:24-0400 SaO2% (BldA) [Mass fraction] 95 % Wendy Chinchilla MD Work Phone: [facility] 06-05-2025 10:24-0400 Systolic blood pressure 128 mm[Hg] Wendy Chinchilla MD Work Phone: [facility] 05-08-2025 09:20-0400 Body height 170.18 cm [facility] 05-08-2025 09:20-0400 Body mass index (BMI) [Ratio] 31.6 kg/m2 [facility] 05-08-2025 09:20-0400 Body weight 91.62 kg [facility] 05-08-2025 09:20-0400 Diastolic blood pressure 72 mm[Hg] [facility] 05-08-2025 09:20-0400 Heart rate 86 /min [facility] 05-08-2025 09:20-0400 Systolic blood pressure 125 mm[Hg] [facility] 03-17-2025 09:05-0400 Body height 168.9 cm Wendy Chinchilla MD Work Phone: [facility] 03-17-2025 09:05-0400 Body mass index (BMI) [Ratio] 32.75 kg/m2 Wendy Chinchilla MD Work Phone: [facility] 03-17-2025 09:05-0400 Body weight 93.44 kg Wendy Chinchilla MD Work Phone: [facility] 03-17-2025 09:05-0400 Diastolic blood pressure 80 mm[Hg] Wendy Chinchilla MD Work Phone: [facility] 03-17-2025 09:05-0400 Heart rate 78 /min Wendy Chinchilla MD Work Phone: [facility] 03-17-2025 09:05-0400 Respiratory rate 18 /min Wendy Chinchilla MD Work Phone: [facility] 03-17-2025 09:05-0400 SaO2% (BldA) [Mass fraction] 98 % Wendy Chinchilla MD Work Phone: [facility] 03-17-2025 09:05-0400 Systolic blood pressure 122 mm[Hg] Wendy Chinchilla MD Work Phone: [facility] 02-23-2025 13:00-0400 Body height 168.9 cm Brian Bryant DPM Work Phone: [facility] 02-23-2025 13:00-0400 Body mass index (BMI) [Ratio] 33.32 kg/m2 Brian Bryant DPM Work Phone: [facility] 02-23-2025 13:00-0400 Body weight 95.07 kg Brian Bryant DPM Work Phone: [facility] 02-13-2025 13:01-0400 Body height 172.[address] 02-13-2025 13:01-0400 Body mass index (BMI) [Ratio] 31.47 kg/m2 [address] 02-13-2025 13:01-0400 Body weight 93.[address] 02-05-2025 09:55-0400 Body height 170.18 cm [facility] 02-05-2025 09:55-0400 Body mass index (BMI) [Ratio] 32.8 kg/m2 [facility] 02-05-2025 09:55-0400 Body weight 94.97 kg [facility] 02-05-2025 09:55-0400 Diastolic blood pressure 71 mm[Hg] [facility] 02-05-2025 09:55-0400 Heart rate 75 /min [facility] 02-05-2025 09:55-0400 Respiratory rate 16 /min [facility] 02-05-2025 09:55-0400 SaO2% (BldA) [Mass fraction] 98 % [facility] 02-05-2025 09:55-0400 Systolic blood pressure 107 mm[Hg] [facility] 01-21-2025 09:02-0400 Body mass index (BMI) [Ratio] 32.11 kg/m2 Cristine Win MD Work Phone: [facility] 01-21-2025 09:02-0400 Body weight 95.8 kg Cristine Win MD Work Phone: [facility] 01-21-2025 09:02-0400 Diastolic blood pressure 84 mm[Hg] Cristine Win MD Work Phone: [facility] 01-21-2025 09:02-0400 Systolic blood pressure 128 mm[Hg] Cristine Win MD Work Phone: [facility] 12-16-2024 09:29-0400 Body height 168.9 cm Wendy Chinchilla MD Work Phone: [facility] 12-16-2024 09:29-0400 Body mass index (BMI) [Ratio] 33.32 kg/m2 Wendy Chinchilla MD Work Phone: [facility] 12-16-2024 09:29-0400 Body weight 95.07 kg Wendy Chinchilla MD Work Phone: [facility] 12-16-2024 09:29-0400 Diastolic blood pressure 68 mm[Hg] Wendy Chinchilla MD Work Phone: [facility] 12-16-2024 09:29-0400 Heart rate 70 /min Wendy Chinchilla MD Work Phone: [facility] 12-16-2024 09:29-0400 SaO2% (BldA) [Mass fraction] 97 % Wendy Chinchilla MD Work Phone: [facility] 12-16-2024 09:29-0400 Systolic blood pressure 124 mm[Hg] Wendy Chinchilla MD Work Phone: [facility] 12-05-2024 13:46-0500 Body height 167.6 cm Wendy Chinchilla MD Work Phone: [facility] 12-05-2024 13:46-0500 Body mass index (BMI) [Ratio] 33.93 kg/m2 Wendy Chinchilla MD Work Phone: [facility] 12-05-2024 13:46-0500 Body weight 95.35 kg Wendy Chinchilla MD Work Phone: [facility] 12-05-2024 13:46-0500 Diastolic blood pressure 80 mm[Hg] Wendy Chinchilla MD Work Phone: [facility] 12-05-2024 13:46-0500 Heart rate 92 /min Wendy Chinchilla MD Work Phone: [facility] 12-05-2024 13:46-0500 SaO2% (BldA) [Mass fraction] 97 % Wendy Chinchilla MD Work Phone: [facility] 12-05-2024 13:46-0500 Systolic blood pressure 128 mm[Hg] Wendy Chinchilla MD Work Phone: [facility] 11-26-2024 13:19-0500 Body height 168.9 cm Elmer Wells DO Work Phone: [facility] 11-26-2024 13:19-0500 Body mass index (BMI) [Ratio] 32.75 kg/m2 Elmer Wells DO Work Phone: [facility] 11-26-2024 13:19-0500 Body weight 93.44 kg Elmer Wells DO Work Phone: [facility] 11-26-2024 13:19-0500 Diastolic blood pressure 80 mm[Hg] Elmer Wells DO Work Phone: [facility] 11-26-2024 13:19-0500 Systolic blood pressure 132 mm[Hg] Elmer Wells DO Work Phone: [facility] 11-18-2024 09:45-0500 Body height 172.7 cm Brian Bryant DPM Work Phone: [facility] 11-18-2024 09:45-0500 Body mass index (BMI) [Ratio] 31.63 kg/m2 Brian Bryant DPM Work Phone: [facility] 11-18-2024 09:45-0500 Body weight 94.35 kg Brian Bryant DPM Work Phone: [facility] 10-14-2024 11:02-0500 Body mass index (BMI) [Ratio] 31.63 kg/m2 Kirk Rhodes STRATEGY ANALYST Work Phone: [facility] 10-14-2024 11:02-0500 Body temperature 96.8 [degF] Kirk Rhodes STRATEGY ANALYST Work Phone: [facility] 10-14-2024 11:02-0500 Body weight 94.35 kg Kirk Rhodes STRATEGY ANALYST Work Phone: [facility] 10-14-2024 11:02-0500 Diastolic blood pressure 84 mm[Hg] Kirk Rhodes STRATEGY ANALYST Work Phone: [facility] 10-14-2024 11:02-0500 Heart rate 96 /min Kirk Rhodes STRATEGY ANALYST Work Phone: [facility] 10-14-2024 11:02-0500 SaO2% (BldA) [Mass fraction] 96 % Kirk Rhodes STRATEGY ANALYST Work Phone: [facility] 10-14-2024 11:02-0500 Systolic blood pressure 132 mm[Hg] Kirk Rhodes STRATEGY ANALYST Work Phone: [facility] 09-16-2024 08:56-0500 Body height 172.7 cm Wendy Chinchilla MD Work Phone: [facility] 09-16-2024 08:56-0500 Body mass index (BMI) [Ratio] 31.35 kg/m2 Wendy Chinchilla MD Work Phone: [facility] 09-16-2024 08:56-0500 Body weight 93.53 kg Wendy Chinchilla MD Work Phone: [facility] 09-16-2024 08:56-0500 Diastolic blood pressure 68 mm[Hg] Wendy Chinchilla MD Work Phone: [facility] 09-16-2024 08:56-0500 Heart rate 80 /min Wendy Chinchilla MD Work Phone: [facility] 09-16-2024 08:56-0500 SaO2% (BldA) [Mass fraction] 97 % Wendy Chinchilla MD Work Phone: [facility] 09-16-2024 08:56-0500 Systolic blood pressure 126 mm[Hg] Wendy Chinchilla MD Work Phone: [facility] 07-03-2024 13:57-0400 Body height 172.7 cm Wnedy Chinchilla MD Work Phone: [facility] 07-03-2024 13:57-0400 Body mass index (BMI) [Ratio] 31.23 kg/m2 Wendy Chinchilla MD Work Phone: [facility] 07-03-2024 13:57-0400 Body weight 93.17 kg Wendy Chinchilla MD Work Phone: [facility] 07-03-2024 13:57-0400 Diastolic blood pressure 66 mm[Hg] Wendy Chinchilla MD Work Phone: [facility] 07-03-2024 13:57-0400 Heart rate 85 /min Wendy Chinchilla MD Work Phone: [facility] 07-03-2024 13:57-0400 SaO2% (BldA) [Mass fraction] 96 % Wendy Chinchilla MD Work Phone: [facility] 07-03-2024 13:57-0400 Systolic blood pressure 116 mm[Hg] Wendy Chinchilla MD Work Phone: [facility] 06-13-2024 09:02-0400 Body mass index (BMI) [Ratio] 31.87 kg/m2 Wendy Chinchilla MD Work Phone: [facility] 06-13-2024 09:02-0400 Body temperature 97.2 [degF] Wendy Chinchilla MD Work Phone: [facility] 06-13-2024 09:02-0400 Body weight 95.07 kg Wendy Chinchilla MD Work Phone: [facility] 06-13-2024 09:02-0400 Diastolic blood pressure 72 mm[Hg] Wendy Chinchilla MD Work Phone: [facility] 06-13-2024 09:02-0400 Heart rate 93 /min Wendy Chinchilla MD Work Phone: [facility] 06-13-2024 09:02-0400 SaO2% (BldA) [Mass fraction] 96 % Wendy Chinchilla MD Work Phone: [facility] 06-13-2024 09:02-0400 Systolic blood pressure 126 mm[Hg] Wendy Chinchilla MD Work Phone: [facility] 08-27-2023 13:40-0500 Body height 172.72 cm Julien Ronald Other [facility] Other 08-27-2023 13:40-0500 Body mass index (BMI) [Ratio] 32.54 kg/m2 Julien Ronald Other [facility] Other 08-27-2023 13:40-0500 Body temperature 97.8 [degF] Julien Ronald Other [facility] Other 08-27-2023 13:40-0500 Body weight 97.07 kg Julien Ronald Other [facility] Other 08-27-2023 13:40-0500 Diastolic blood pressure 84 mm[Hg] Julien Ronald Other [facility] Other 08-27-2023 13:40-0500 Respiratory rate 18 /min Julien Ronald Other [facility] Other 08-27-2023 13:40-0500 SaO2% (BldA) [Mass fraction] 98 % Julien Ronald Other [facility] Other 08-27-2023 13:40-0500 Systolic blood pressure 141 mm[Hg] Julien Ronald Other [facility] Other 08-10-2023 08:50-0400 Heart rate 85 /min Elicia Cross APRN.CNP Work Phone: [facility] 08-10-2023 08:50-0400 Respiratory rate 17 /min Elicia Cross APRN.CNP Work Phone: [facility] 08-10-2023 08:50-0400 SaO2% (BldA) [Mass fraction] 97 % Elicia Cross YAQUELIN.CIRCUIT JUDGE Work Phone: [facility] 12-26-2022 11:30-0400 Body height 172.72 cm Jignesh Sargent Other [facility] Other 12-26-2022 11:30-0400 Body mass index (BMI) [Ratio] 34.06 kg/m2 Jignesh Ditty Other [facility] Other 12-26-2022 11:30-0400 Body weight 101.61 kg Jignesh Wilkinstty Other [facility] Other 12-26-2022 11:30-0400 Diastolic blood pressure 70 mm[Hg] Jignesh Ditty Other [facility] Other 12-26-2022 11:30-0400 Systolic blood pressure 125 mm[Hg] Jignesh Ditty Other [facility] Other 08-22-2022 10:45-0500 Body height 172.72 cm Jignesh Woody Other [facility] Other 08-22-2022 10:45-0500 Body mass index (BMI) [Ratio] 34.97 kg/m2 Jignesh Ditty Other [facility] Other 08-22-2022 10:45-0500 Body weight 104.33 kg Jignesh Ditty Other [facility] Other 08-22-2022 10:45-0500 Diastolic blood pressure 74 mm[Hg] Jignesh Ditty Other [facility] Other 08-22-2022 10:45-0500 Systolic blood pressure 123 mm[Hg] Jignesh Sargent Other [facility] Other 08-22-2022 10:19-0500 Body weight 0 kg MD Wendy Chinchilla Work Phone: [facility] 08-14-2022 11:00-0500 Body height 172.72 cm Julien Ronald Other [facility] Other 08-14-2022 11:00-0500 Body mass index (BMI) [Ratio] 35.64 kg/m2 Julien Ronald Other [facility] Other 08-14-2022 11:00-0500 Body temperature 96.8 [degF] Julien Ronald Other [facility] Other 08-14-2022 11:00-0500 Body weight 106.32 kg Julien Ronald Other [facility] Other 08-14-2022 11:00-0500 Diastolic blood pressure 82 mm[Hg] Julien Ronald Other [facility] Other 08-14-2022 11:00-0500 Respiratory rate 18 /min Julien Ronald Other [facility] Other 08-14-2022 11:00-0500 SaO2% (BldA) [Mass fraction] 97 % Julien Ronald Other [facility] 08-14-2022 11:00-0500 Systolic blood pressure 131 mm[Hg] Julien Ronald Other [facility] Other 02-13-2022 10:20-0400 Body height 172.72 cm Julien Ronald Other [facility] Other 02-13-2022 10:20-0400 Body mass index (BMI) [Ratio] 36.18 kg/m2 Julien Ronald Other [facility] Other 02-13-2022 10:20-0400 Body temperature 96.8 [degF] Julien Ronald Other [facility] Other 02-13-2022 10:20-0400 Body weight 107.96 kg Julien Ronald Other [facility] Other 02-13-2022 10:20-0400 Diastolic blood pressure 70 mm[Hg] Julien Ronald Other [facility] Other 02-13-2022 10:20-0400 Respiratory rate 18 /min Julien Ronald Other [facility] Other 02-13-2022 10:20-0400 SaO2% (BldA) [Mass fraction] 98 % Julien Ronald Other [facility] Other 02-13-2022 10:20-0400 Systolic blood pressure 118 mm[Hg] Julien Ronald Other [facility] 08-10-2021 14:00-0400 Body height 172.72 cm Julien Ronald Other [facility] 08-10-2021 14:00-0400 Body mass index (BMI) [Ratio] 35.79 kg/m2 Julien Ronald Other [facility] 08-10-2021 14:00-0400 Body temperature 97 [degF] Julien Ronald Other [facility] Other 08-10-2021 14:00-0400 Body weight 106.78 kg Julien Ronald Other [facility] Other 08-10-2021 14:00-0400 Diastolic blood pressure 82 mm[Hg] Julien Ronald Other [facility] Other 08-10-2021 14:00-0400 Respiratory rate 18 /min Julien Ronald Other [facility] Other 08-10-2021 14:00-0400 SaO2% (BldA) [Mass fraction] 96 % Julien Ronald Other [facility] Other 08-10-2021 14:00-0400 Systolic blood pressure 126 mm[Hg] Julien Ronald Other [facility] Other Encounters Encounter Date Encounter Type Care Provider Facility Start: 07-27-2025 ambulatory Ethan Salmoni ty:KRISSY Aaron Start: 07-22-2025 ambulatory Ethan MERCADO Facility :[facility] Start: 07-21-2025 End: 07-21-2025 BamPneumoflex Systemso Naytevheet Satish Koo COLOR LABORATORY TECHNICIAN-CIRCUIT JUDGE [facility] Start: 07-21-2025 End: 07-21-2025 Bamboo Naytevheet Satish Koo COLOR LABORATORY TECHNICIAN-CIRCUIT JUDGE Work Phone: [facility] Start: 07-21-2025 End: 07-21-2025 Office outpatient visit 15 minutes [facility] Comment on above: Seborrheic keratosis (Primary Dx); Capillary angioma; Melanocytic nevus of trunk Start: 07-21-2025 End: 07-21-2025 ambulatory SATISH KOO [facility] Comment on above: Urinary frequency (P rimary Dx) Start: 07-20-2025 End: 07-20-2025 Patient encounter procedure Michele Armijo DO -XRay [facility] Work Phone: Start: 07-20-2025 End: 07-20-2025 ambulatory [facility] Work Phone: Start: 07-15-2025 End: 07-15-2025 ambulatory [facility] Work Phone: Start: 07-15-2025 End: 07-15-2025 Patient encounter procedure [facility] Work Phone: Start: 07-01-2025 End: 07-01-2025 Evaluation and management of inpatient MEHRDAD Fields [facility] Start: 06-29-2025 End: 06-29-2025 Telephone encounter Jr. Laya Pham DO Work Phone: [facility] Comment on above: Had sewing needle br dick off in her finger can we get it out Start: 06-26-2025 End: 06-26-2025 Emergency department patient visit WEDNY CHINCHILLA [facility] Start: 06-22-2025 End: 06-22-2025 ambulatory [facility] Work Phone: Start: 06-22-2025 End: 06-22-2025 Patient encounter procedure [facility] Work Phone: Start: 06-19-2025 End: 06-19-2025 Bamaj Chinchilla MD Work Phone: [facility] Start: 06-19-2025 End: 06-19-2025 Bamaj Chinchilla MD Work Phone: [facility] Start: 06-19-2025 End: 06-19-2025 Telephone encounter Wendy Chinchilla MD Work Phone: [facility] Start: 06-19-2025 End: 06-19-2025 Office outpatient visit 25 minutes Wendy Chinchilla MD Work Phone: [facility] Comment on above: Type 2 diabetes bin itus with stage 3a chronic kidney disease, without long-term current use of insulin (HCC) (Primary Dx); Encounter for immunization; Essential hypertension ; Hypertensive chronic kidney disease with stage 1 through stage 4 chronic kidney disease, or unspecified chronic kidney disease ; Stage 3a chronic kidney disease ([facility]-HCC); Mixed hyperlipidemia Start: 06-19-2025 End: 06-19-2025 ambulatory WENDY CHINCHILLA Not Available Start: 06-16-2025 End: 06-16-2025 Conrad Pham DO Work Phone: [facility] Start: 06-16-2025 End: 06-16-2025 Bamaj Pham DO Work Phone: [facility] Start: 06-16-2025 End: 06-16-2025 Office outpatient visit 15 minutes Jr. Laya Pham DO Work Phone: [facility] Comment on above: Neck pain; Cervical radiculopathy Start: 06-16-2025 End: 06-16-2025 ambulatory LAYA SORIANO Not Available Start: 06-10-2025 End: 06-10-2025 ambulatory BARB RICHARDS Not Available Start: 06-05-2025 End: 06-05-2025 Office outpatient visit 25 minutes Wendy Chinchilla MD Work Phone: [facility] Comment on above: Chronic midline low back pain without sciatica (Primary Dx); Nasal drainage; Essential hypertension ; Stage 3a chronic kidney disease ([facility]) Start: 06-05-2025 End: 06-05-2025 ambulatory WENDY CHINCHILLA Not Available Start: 06-02-2025 End: 06-02-2025 Bamboo flowsheet Barb URIAS Work Phone: [facility] Start: 06-02-2025 End: 06-02-2025 Bamboo flowsheet Barb Richards PA Work Phone: [facility] Start: 06-02-2025 End: 06-03-2025 Telephone encounter Barb URIAS Work Phone: [facility] Comment on above: Questions Start: 06-02-2025 End: 06-02-2025 ambulatory BARB RICHARDS Not Available Start: 06-02-2025 End: 06-02-2025 Office outpatient visit 15 minutes Barb URIAS Work Phone: [facility] Comment on above: Acute pain of right shoulder (Primary Dx); Neck pain; Cervical radiculopathy Start: 06-02-2025 End: 06-02-2025 ambulatory BARB RICHARDS Not Available Start: 05-27-2025 End: 05-27-2025 Patient encounter procedure Temporary [facility]an [facility] Work Phone: Start: 05-27-2025 End: 05-27-2025 ambulatory NON STAFF [facility] Work Phone: Start: 05-27-2025 Non-patient / Non-visit Jignesh Knox MD -[facility] Work Phone: Start: 05-25-2025 End: 05-25-2025 Emergency department patient visit WENDY CHINCHILLA [facility] Start: 05-25-2025 End: 05-25-2025 ambulatory LAYA SORIANO Not Available Start: 05-19-2025 End: 05-19-2025 Bamboo flowsheet Jr. Laya Minaya Stepanic DO Work Phone: [facility] Start: 05-19-2025 End: 05-19-2025 Bamboo flowsheet Jr. Laya Minaya Stepanic DO Work Phone: [facility] Start: 05-19-2025 End: 05-19-2025 ambulatory LAYA SORIANO Not Available Start: 05-19-2025 End: 05-19-2025 Office outpatient visit 15 minutes JrHugo Pham DO Work Phone: [facility] Comment on above: Lumbar pain Start: 05-19-2025 End: 05-19-2025 ambulatory .LAYA ELSAMAYLIN Not Available Start: 05-08-2025 End: 05-08-2025 Patient encounter procedure [place] [facility] COLOR LABORATORY TECHNICIAN -[facility] Work Phone: Start: 05-08-2025 End: 05-08-2025 ambulatory NON STAFF [facility] Work Phone: Start: 05-08-2025 End: 05-08-2025 ambulatory NON STAFF [facility] Work Phone: Start: 05-08-2025 End: 05-08-2025 Patient encounter procedure [facility] Work Phone: Start: 04-03-2025 End: 04-05-2025 Lissa Chinchilla MD Work Phone: [facility] Comment on above: Type 2 diabetes bin itus with stage 2 chronic kidney disease, without long-term current use of insulin (HCC) Start: 03-17-2025 End: 03-17-2025 Phaniboo flowsdayne Chinchilla MD Work Phone: [facility] Start: 03-17-2025 End: 03-17-2025 Bamboo flowsdayne Chinchilla MD Work Phone: [facility] Start: 03-17-2025 End: 03-17-2025 Office outpatient visit 25 minutes Wendy Chinchilla MD Work Phone: [facility] Comment on above: Xerostomia (Primary Dx); Type 2 diabetes mellitus with stage 3a chronic kidney disease, without long-term current use of insulin (HCC) ([facility]/HCC) Start: 03-17-2025 End: 03-17-2025 ambulatory WENDY CHINCHILLA Not Available Start: 03-04-2025 End: 03-04-2025 Orders Only Cristine Win MD Work Phone: [facility] Start: 02-23-2025 End: 02-23-2025 Bamboo flowsheet Brian Bryant DPM Work Phone: [facility] Start: 02-23-2025 End: 02-23-2025 Bamboo flowsheet Brian Bryant DPM Work Phone: [facility] Start: 02-23-2025 End: 02-23-2025 Office outpatient visit 15 minutes Brian Bryant DPM Work Phone: [facility] Comment on above: Pain in both feet (P rimary Dx); Diabetic polyneuropathy associated with type 2 diabetes mellitus ([facility]); Onychomycosis; Onychodystrophy Start: 02-23-2025 End: 02-23-2025 ambulatory BRIAN BRYANT Not Available Start: 02-19-2025 End: 02-19-2025 Evaluation and management of inpatient CRISTINE WIN [facility] Start: 02-13-2025 End: 02-13-2025 Evaluation and management of inpatient WENDY CHINCHILLA [facility] Start: 02-13-2025 End: 02-13-2025 Admission to [facility] Phone Call Provider 2 [facility] Start: 02-11-2025 End: 02-11-2025 Telephone encounter Wendy Chinchilla MD Work Phone: [facility] Start: 02-05-2025 End: 02-05-2025 ambulatory [facility] Work Phone: Start: 02-05-2025 End: 02-05-2025 Patient encounter procedure [facility] Work Phone: Start: 01-28-2025 End: 01-28-2025 Clinisync Result Encounter Generic External Data Provider [facility] External Department Unsolicited Start: 01-28-2025 End: 01-28-2025 Clinisync Result Encounter Generic External Data Provider [facility] External Department Unsolicited Start: 01-28-2025 End: 01-28-2025 ambulatory Julien Ronald Facility:[facility] Start: 01-28-2025 Non-patient / [facility]-visit [facility] Work Phone: Start: 01-27-2025 End: 01-28-2025 Refill Cristine Win MD Work Phone: [facility] Comment on above: Portal venous hypert ension (CMS-HCC) (Primary Dx); Family history of colon cancer; Abnormal liver enzymes; Gastroesophageal reflux disease, unspecified whether esophagitis present; Family history of esophageal cancer Start: 01-21-2025 End: 01-21-2025 ambulatory WENDY CHINCHILLA [facility] Start: 01-21-2025 End: 01-21-2025 Office consultation new/estab patient 60 min Cristine Win MD Work Phone: [facility] Comment on above: Portal venous hypert ension (CMS-HCC) (Primary Dx); Family history of colon cancer; Abnormal liver enzymes; Gastroesophageal reflux disease, unspecified whether esophagitis present; Family history of esophageal cancer; Sleep apnea, unspecified type Start: 01-21-2025 End: 01-21-2025 ambulatory CRISTINE WIN [facility] Start: 01-08-2025 End: 01-09-2025 Refhuma Chinchilla MD Work Phone: [facility] Comment on above: Type 2 diabetes bin itus with stage 2 chronic kidney disease, without long-term current use of insulin (CMS/HCC) Start: 01-02-2025 End: 01-03-2025 Refill Wendy Chinchilla MD Work Phone: [facility] Comment on above: Type 2 diabetes bin itus with diabetic polyneuropathy, without long-term current use of insulin (CMS/HCC) Start: 12-31-2024 End: 12-31-2024 Telephone encounter Barb URIAS Work Phone: [facility] Comment on above: Med Refill Start: 12-17-2024 End: 12-17-2024 Telephone encounter Wendy Chinchilla MD Work Phone: [facility] Start: 12-16-2024 End: 12-16-2024 Patient encounter status Wendy Chinchilla MD Work Phone: [facility] Work Phone: Start: 12-16-2024 End: 12-16-2024 Periodic preventive med est patient 65yrs& older Wendy Chinchilla MD Work Phone: [facility] Comment on above: Wellness examination (Primary Dx); Obstructive sleep apnea syndrome; Essential hypertension (CMS/HCC); Fatty liver; Gastroesophageal reflux disease without esophagitis; Acquired hypothyroidism (CMS/HCC); Mixed hyperlipidemia (CMS/HCC); Type 2 diabetes mellitus with stage 3a chronic kidney disease, without long-term current use of insulin (HCC) (CMS/HCC); Type 2 diabetes mellitus with diabetic chronic kidney disease (CMS/HCC); Chronic kidney disease, stage 3a (HCC) (CMS/HCC); Stage 3a chronic kidney disease (HCC) (CMS/HCC) Start: 12-16-2024 End: 12-16-2024 ambulatory WENDY CHINCHILLA Not Available Start: 12-05-2024 End: 12-05-2024 Bamboo flowsheet Wendy Chinchilla MD Work Phone: [facility] Start: 12-05-2024 End: 12-05-2024 Bamboo flowsheet Wendy Chinchilla MD Work Phone: [facility] Start: 12-05-2024 End: 12-05-2024 Office outpatient visit 25 minutes Wendy Chinchilla MD Work Phone: [facility] Comment on above: Family history of co kayden cancer; Portal venous hypertension (CMS/HCC); Obstructive sleep apnea syndrome; LARSON (nonalcoholic steatohepatitis) Start: 12-05-2024 End: 12-05-2024 ambulatory WENDY CHINCHILLA Not Available Start: 11-26-2024 End: 11-26-2024 Office outpatient visit 25 minutes Elmer Wells DO Work Phone: [facility] Comment on above: Postmenopausal atrop hic vaginitis (Primary Dx); Breast cancer screening by mammogram; Urgency incontinence; Hot flashes Start: 11-26-2024 End: 11-26-2024 ambulatory ELMER WELLS Not Available Start: 11-18-2024 End: 11-18-2024 Bamboo flowsheet Brian Bryant DPM Work Phone: [facility] Start: 11-18-2024 End: 11-18-2024 Bamboo flowsheet Brian Bryant DPM Work Phone: [facility] Start: 11-18-2024 End: 11-18-2024 Office outpatient visit 15 minutes Brian Bryant DPM Work Phone: [facility] Comment on above: Diabetic polyneuropa thy associated with type 2 diabetes mellitus (CMS/HCC) (Primary Dx); Hallux valgus of right foot; 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 Start: 11-18-2024 End: 11-18-2024 ambulatory BRIAN BRYANT Not Available Start: 11-14-2024 End: 11-14-2024 Bamboo flowsheet Vaishali Hendricks DOLL [employer] [facility] Start: 11-14-2024 End: 11-14-2024 Bamboo flowsheet Vaishali Brink [employer] [facility] Start: 11-14-2024 End: 11-14-2024 ambulatory Vaishali Hendricks [employer] [facility] Comment on above: Chronic midline low back pain without sciatica (Primary Dx); DDD (degenerative disc disease), thoracic; Degeneration of intervertebral disc of lumbar region, unspecified whether pain present Start: 11-12-2024 End: 11-12-2024 ambulatory WENDY CHINCHILLA Not Available Start: 11-10-2024 End: 11-10-2024 Bamboo flowsheet Vaishali Hendricks [employer] [facility] Start: 11-10-2024 End: 11-10-2024 Bamboo flowsheet Vaishali Hendricks [employer] [facility] Start: 11-10-2024 End: 11-10-2024 Telephone encounter Wendy Chinchilla MD Work Phone: [facility] Start: 11-10-2024 End: 11-10-2024 ambulatory Vaishali Hendricks [employer] [facility] Comment on above: Chronic midline low back pain without sciatica (Primary Dx); DDD (degenerative disc disease), thoracic; Degeneration of intervertebral disc of lumbar region, unspecified whether pain present Start: 11-07-2024 End: 11-07-2024 ambulatory Melissa Quesada [employer] [facility] Comment on above: Chronic midline low back pain without sciatica (Primary Dx); DDD (degenerative disc disease), thoracic; Degeneration of intervertebral disc of lumbar region, unspecified whether pain present Start: 11-05-2024 End: 11-05-2024 Bamboo flowsheet Barb URIAS Work Phone: [facility] Start: 11-05-2024 End: 11-05-2024 Bamboo flowsheet Barb URIAS Work Phone: [facility] Start: 11-05-2024 End: 11-05-2024 Office outpatient visit 25 minutes Barb URIAS Work Phone: [facility] Comment on above: Acute pain of right knee (Primary Dx); History of total right knee replacement; It band syndrome, right Start: 11-05-2024 End: 11-05-2024 ambulatory Vaishali Hendricks [employer] [facility] Comment on above: Chronic midline low back pain without sciatica (Primary Dx); DDD (degenerative disc disease), thoracic; Degeneration of intervertebral disc of lumbar region, unspecified whether pain present Start: 11-04-2024 End: 11-04-2024 ambulatory WENDY CHINCHILLA Not Available Start: 11-03-2024 End: 11-03-2024 Bamboo flowsheet Vaishali Hendricks [employer] [facility] Start: 11-03-2024 End: 11-03-2024 Bamboo flowsheet Vaishali Brink [employer] [facility] Start: 11-03-2024 End: 11-03-2024 ambulatory Vaishali Hendricks [employer] [facility] Comment on above: Chronic midline low back pain without sciatica (Primary Dx); DDD (degenerative disc disease), thoracic; Degeneration of intervertebral disc of lumbar region, unspecified whether pain present Start: 10-31-2024 End: 10-31-2024 Bamboo flowsheet Vaishali Hendricks [employer] [facility] Start: 10-31-2024 End: 10-31-2024 Bamboo flowsheet Vaishali Francoisink [employer] [facility] Start: 10-31-2024 End: 10-31-2024 ambulatory Vaishali Hendricks [employer] [facility] Comment on above: Chronic midline low back pain without sciatica (Primary Dx); DDD (degenerative disc disease), thoracic; Degeneration of intervertebral disc of lumbar region, unspecified whether pain present Start: 10-29-2024 End: 10-29-2024 Bamboo flowsheet Morena Farr PT Work Phone: [facility] Start: 10-29-2024 End: 10-29-2024 Bamboo flowsheet Morena Farr PT Work Phone: [facility] Start: 10-29-2024 End: 10-29-2024 ambulatory Morena Farr PT Work Phone: [facility] Comment on above: Chronic midline low back pain without sciatica (Primary Dx); DDD (degenerative disc disease), thoracic; Degeneration of intervertebral disc of lumbar region, unspecified whether pain present Start: 10-28-2024 End: 10-28-2024 Patient encounter procedure [facility] Comment on above: Pelvic pressure in cherelle cortez Start: 10-28-2024 End: 10-28-2024 ambulatory WENDY CHINCHILLA Not Available Start: 10-27-2024 End: 10-28-2024 ambulatory Vaishali Hendricks [employer] [facility] Comment on above: Chronic midline low back pain without sciatica (Primary Dx); DDD (degenerative disc disease), thoracic; Degeneration of intervertebral disc of lumbar region, unspecified whether pain present Type 2 diabetes bin itus without complication, without long-term current use of insulin ([facility]); Type 2 diabetes mellitus with stage 2 chronic kidney disease, without long-term current use of insulin ([facility]/HCC); Primary hypertension ([facility]/HCC); Acquired hypothyroidism ([facility]/HCC) Start: 10-24-2024 End: 10-24-2024 Bamboo flowsheet Vaishali Hendricks [employer] [facility] Start: 10-24-2024 End: 10-24-2024 Bamboo flowsheet Vaishali Hendricks [employer] [facility] Start: 10-24-2024 End: 10-24-2024 ambulatory Vaishali Hendricks [employer] [facility] Comment on above: Chronic midline low back pain without sciatica (Primary Dx); DDD (degenerative disc disease), thoracic; Degeneration of intervertebral disc of lumbar region, unspecified whether pain present Start: 10-22-2024 End: 10-22-2024 Bamboo flowsheet Melissa Estrellay [employer] [facility] Start: 10-22-2024 End: 10-22-2024 Bamboo flowsheet Melissa Estrellay [employer] [facility] Start: 10-22-2024 End: 10-24-2024 Refill Brian Bryant DPM Work Phone: [facility] Comment on above: Diabetic polyneuropa thy associated with type 2 diabetes mellitus ([facility]/HCC) Start: 10-22-2024 End: 10-22-2024 Telephone encounter Ria Sauer MA [facility] Start: 10-22-2024 End: 10-22-2024 ambulatory Melissa Estrellay [employer] [facility] Comment on above: Chronic midline low back pain without sciatica (Primary Dx); DDD (degenerative disc disease), thoracic; Degeneration of intervertebral disc of lumbar region, unspecified whether pain present Start: 10-20-2024 End: 10-20-2024 Bamboo flowsheet Vaishali Hendricks [employer] [facility] Start: 10-20-2024 End: 10-20-2024 Bamboo flowsheet Vaishali Hendricks [employer] [facility] Start: 10-20-2024 End: 10-20-2024 ambulatory Vaishali Hendricks [employer] [facility] Comment on above: Chronic midline low back pain without sciatica (Primary Dx); DDD (degenerative disc disease), thoracic; Degeneration of intervertebral disc of lumbar region, unspecified whether pain present Start: 10-17-2024 End: 10-17-2024 ambulatory Vaishali Hendricks [employer] [facility] Comment on above: Chronic midline low back pain without sciatica (Primary Dx); DDD (degenerative disc disease), thoracic; Degeneration of intervertebral disc of lumbar region, unspecified whether pain present Start: 10-16-2024 End: 10-16-2024 Office outpatient visit 15 minutes Satish A Felter COLOR LABORATORY TECHNICIAN-CIRCUIT JUDGE Work Phone: [facility] Comment on above: Other atopic dermati tis; Inflamed seborrheic keratosis Start: 10-16-2024 End: 10-16-2024 ambulatory SATISH A FELTER Not Available Start: 10-16-2024 End: 10-16-2024 Bamboo flowsheet Satish A Felter COLOR LABORATORY TECHNICIAN-CIRCUIT JUDGE Work Phone: [facility] Start: 10-16-2024 End: 10-16-2024 Bamboo flowsheet Satish A Felter COLOR LABORATORY TECHNICIAN-CIRCUIT JUDGE Work Phone: [facility] Start: 10-14-2024 End: 10-14-2024 Bamboo flowsheet Kirk Rhodes STRATEGY ANALYST Work Phone: [facility] Start: 10-14-2024 End: 10-14-2024 Bamboo flowsheet Kirk Rhodes STRATEGY ANALYST Work Phone: [facility] Start: 10-14-2024 End: 10-14-2024 Office outpatient visit 15 minutes Kirk Rhodes STRATEGY ANALYST Work Phone: [facility] Comment on above: Acute non-recurrent pansinusitis (Primary Dx); Cough, unspecified type; Nasal congestion Start: 10-14-2024 End: 10-14-2024 ambulatory KIRK RHODES Not Available Start: 10-13-2024 End: 10-13-2024 Telephone encounter Vaishali Hendricks [employer] [facility] Comment on above: CX PT tomorrow Start: 10-09-2024 End: 10-09-2024 ambulatory Melissa Quesada [employer] [facility] Comment on above: Chronic midline low back pain without sciatica (Primary Dx); DDD (degenerative disc disease), thoracic; Degeneration of intervertebral disc of lumbar region, unspecified whether pain present Start: 10-07-2024 End: 10-07-2024 Bamboo flowsheet Melissa Quesada DOLL [employer] [facility] Start: 10-07-2024 End: 10-07-2024 Bamboo flowsheet Melissa Quesada DOLL [employer] [facility] Start: 10-07-2024 End: 10-07-2024 ambulatory Melissa Quesada DO[employer] [facility] Comment on above: Chronic midline low back pain without sciatica (Primary Dx); DDD (degenerative disc disease), thoracic; Degeneration of intervertebral disc of lumbar region, unspecified whether pain present Start: 10-05-2024 End: 10-05-2024 ambulatory GRACY MORGAN Not Available Start: 10-03-2024 End: 10-03-2024 ambulatory Gracy Morgan PT [facility] Comment on above: Chronic midline low back pain without sciatica (Primary Dx); DDD (degenerative disc disease), thoracic; Degeneration of intervertebral disc of lumbar region, unspecified whether pain present Start: 09-26-2024 End: 09-26-2024 Bamboo flowsheet Zander Cline DO[employer] [facility] Start: 09-26-2024 End: 09-26-2024 Bamboo flowsheet Zander Cline [employer] [facility] Start: 09-26-2024 End: 09-26-2024 ambulatory Zander Cline [employer] [facility] Comment on above: Chronic midline low back pain without sciatica (Primary Dx) Start: 09-23-2024 End: 09-23-2024 Bamboo flowsheet Morena Farr PT Work Phone: [facility] Start: 09-23-2024 End: 09-23-2024 Bamboo flowsheet Morena Farr PT Work Phone: [facility] Start: 09-23-2024 End: 09-23-2024 ambulatory Morena Farr PT Work Phone: [facility] Comment on above: Chronic midline low back pain without sciatica (Primary Dx) Start: 09-16-2024 End: 09-16-2024 Conrad Chinchilla MD Work Phone: [facility] Start: 09-16-2024 End: 09-16-2024 Conrad Chinchilla MD Work Phone: [facility] Start: 09-16-2024 End: 09-16-2024 Telephone encounter Gracy Morgan PT [facility] Comment on above: PT Initial Eval Start: 09-16-2024 End: 09-16-2024 Office outpatient visit 25 minutes Wendy Chinchilla MD Work Phone: [facility] Comment on above: Encounter for screen ing mammogram for malignant neoplasm of breast (Primary Dx); Type 2 diabetes mellitus with diabetic polyneuropathy, without long-term current use of insulin (CMS/HCC); Chronic midline low back pain without sciatica; Sinus congestion Start: 09-16-2024 End: 09-16-2024 ambulatory WENDY CHINCHILLA Not Available Start: 09-14-2024 End: 09-15-2024 Refill Ayse Sewell NP Work Phone: [facility] Comment on above: Primary hypertension (CMS/HCC) Start: 09-03-2024 End: 09-03-2024 ambulatory Wendy Chinchilla Facility:[facility] Start: 09-02-2024 End: 09-02-2024 Telephone encounter Wendy [...] without long-term current use of insulin (CMS/HCC) Start: 08-08-2024 End: 10-06-2024 Telephone encounter Wendy Chinchilla MD Work Phone: [facility] Start: 08-06-2024 End: 08-06-2024 Telephone encounter Wendy Chinchilla MD Work Phone: [facility] Start: 08-05-2024 End: 08-05-2024 Refill Wendy Chinchilla MD Work Phone: [facility] Comment on above: Type 2 diabetes bin itus with diabetic polyneuropathy, without long-term current use of insulin (CMS/HCC) Start: 08-02-2024 End: 08-02-2024 Refill Ayse Sewell NP Work Phone: [facility] Comment on above: Primary hypertension (CMS/HCC) Start: 07-26-2024 End: 07-28-2024 Refill Wendy Chinchilla MD Work Phone: [facility] Comment on above: Type 2 diabetes bin itus with stage 2 chronic kidney disease, without long-term current use of insulin (CMS/HCC) Start: 07-21-2024 End: 07-21-2024 Bamboo flowsheet Satish Koo COLOR LABORATORY TECHNICIAN-CIRCUIT JUDGE Work Phone: [facility] Start: 07-21-2024 End: 07-21-2024 Bamboo flowsheet Satish Koo COLOR LABORATORY TECHNICIAN-CIRCUIT JUDGE Work Phone: [facility] Start: 07-21-2024 End: 07-21-2024 Office outpatient visit 15 minutes Satish Koo COLOR LABORATORY TECHNICIAN-CIRCUIT JUDGE Work Phone: [facility] Comment on above: Seborrheic keratosis (Primary Dx); Melanocytic nevus of trunk; Capillary angioma Start: 07-19-2024 End: 07-21-2024 Refill Ayse Sewell NP Work Phone: [facility] Comment on above: Type 2 diabetes bin itus with stage 2 chronic kidney disease, without long-term current use of insulin (CMS/HCC) Start: 07-15-2024 End: 07-15-2024 ambulatory WENDY CHINCHILLA [facility] Start: 07-03-2024 End: 07-03-2024 Bamboo flowsheet Wendy Chinchilla MD Work Phone: [facility] Start: 07-03-2024 End: 07-03-2024 Bamboo flowsheet Wendy Chinchilla MD Work Phone: [facility] Start: 07-03-2024 End: 07-03-2024 Office outpatient visit 25 minutes Wendy Chinchilla MD Work Phone: [facility] Comment on above: Portal venous hypert ension (CMS/HCC) (Primary Dx); Encounter for immunization; Dysphagia, unspecified type; Memory loss; RUQ pain Start: 06-17-2024 End: 06-17-2024 Patient encounter procedure Ivan Patton PhD Work Phone: [facility] Comment on above: Memory loss (Primary Dx); Poor sleep; Daytime somnolence; Family history of dementia Start: 06-16-2024 End: 06-16-2024 Telephone encounter Wendy Chinchilla MD Work Phone: [facility] Start: 06-13-2024 End: 06-13-2024 Bamboo flowsheet Wendy Chinchilla MD Work Phone: [facility] Start: 06-13-2024 End: 06-13-2024 Bamboo flowsheet Wendy Chinchilla MD Work Phone: [facility] Start: 06-13-2024 End: 06-13-2024 Office outpatient visit 25 minutes Wendy Chinchilla MD Work Phone: [facility] Comment on above: Type 2 diabetes bin itus with diabetic polyneuropathy, without long-term current use of insulin ([facility]) (Primary Dx); Encounter for immunization Start: 06-02-2024 End: 06-02-2024 Patient encounter procedure Ivan Patton PhD Work Phone: [facility] Comment on above: Memory loss (Primary Dx); Poor sleep; Daytime somnolence; Family history of dementia Start: 01-03-2024 End: 01-03-2024 ambulatory MD Wendy Chinchilla Work Phone: [facility] Work Phone: Start: 01-03-2024 End: 01-03-2024 Patient encounter procedure MD Wendy Chinchilla Work Phone: [facility] Work Phone: Start: 12-27-2023 End: 12-27-2023 ambulatory MD Wendy Chinchilla Work Phone: [facility] Work Phone: Start: 12-27-2023 End: 12-27-2023 Patient encounter procedure MD Wendy Chinchilla Work Phone: [facility] [place] Work Phone: Start: 11-19-2023 End: 11-19-2023 ambulatory Zander Cline [employer] [facility] Comment on above: DDD (degenerative di sc disease), lumbar (Primary Dx); DDD (degenerative disc disease), thoracic Type 2 diabetes bin itus without complication, without long-term current use of insulin ([facility]) Start: 11-19-2023 Bamboo flowsheet Zander Velazquez nce [employer] [facility] Start: 11-19-2023 Bamboo flowsheet Zander Velazquez nce [employer] [facility] Start: 11-15-2023 End: 11-15-2023 ambulatory Zander Cline [employer] [facility] Comment on above: DDD (degenerative di sc disease), lumbar (Primary Dx); DDD (degenerative disc disease), thoracic Start: 11-12-2023 End: 11-12-2023 ambulatory JENNI SERRANO Facility:[facility] Start: 11-12-2023 End: 11-12-2023 Patient encounter procedure Jenni Serrano MD Work Phone: Otolaryngology Comment on above: Oral lesion Start: 11-09-2023 End: 11-09-2023 ambulatory Zander Cline [employer] [facility] Comment on above: DDD (degenerative di sc disease), lumbar (Primary Dx); DDD (degenerative disc disease), thoracic Start: 10-10-2023 Telephone encounter Elicia Cross APRN.CNP Work Phone: Otolaryngology Comment on above: Appointment Start: 08-27-2023 End: 08-27-2023 ambulatory Julien Ronald Other [facility] Other Start: 08-27-2023 Office outpatient vi sit 15 minutes Julien Ronald [facility] Start: 08-10-2023 End: 08-10-2023 ambulatory ELICIA CROSS Facility:[facility] Start: 08-10-2023 End: 08-10-2023 Patient encounter procedure Ester Burrell, CCC-A Work Phone: Audiology Comment on above: Other specified hear ing loss, unspecified ear (Primary Dx); Type 2 diabetes mellitus with stage 3a chronic kidney disease, without long-term current use of insulin (HCC) Bilateral high frequ ency sensorineural hearing loss (Primary Dx); Oral lesion Start: 06-14-2023 Orders Only Elicia Gunderson son [facility]ELIN[facility] Work Phone: [facility] Comment on above: Other specified hear ing loss, unspecified ear (Primary Dx) Start: 02-12-2023 End: 02-13-2023 ambulatory JULIEN RONALD Facility:[facility] Start: 12-26-2022 End: 12-26-2022 ambulatory Jignesh Sargent Other [facility] Other Start: 12-26-2022 Patient encounter procedure Jignesh Sargent [facility] Start: 10-12-2022 End: 10-12-2022 ambulatory Julien Ronald Other [facility] Other Start: 10-12-2022 Telephone encounter Julien Ronald [facility] Start: 08-30-2022 End: 08-30-2022 ambulatory MD Wendy Chinchilla Work Phone: [facility] Work Phone: Start: 08-30-2022 End: 08-30-2022 Patient encounter procedure MD Wendy Chinchilla Work Phone: [facility] Start: 2022 End: 08-30-2022 ambulatory JIGNESH SARGENT Facility:[facility] Start: 08-22-2022 End: 08-22-2022 ambulatory Jignesh Sargent Other [facility] Other Start: 08-22-2022 FQHC visit new patient Jignesh Wilkinsrodolfo [facility] Start: 08-14-2022 End: 08-14-2022 ambulatory Julien Ronald Other [facility] Other Start: 08-14-2022 Office outpatient vi sit 25 minutes Julien Ronald [facility] Start: 08-08-2022 End: 08-09-2022 ambulatory JULIEN RONALD Facility:[facility] Start: 02-13-2022 End: 02-13-2022 ambulatory Julien Ronald Other [facility] Other Start: 02-13-2022 Office outpatient vi sit 15 minutes Julien Ronald [facility] Start: 11-23-2021 End: 11-23-2021 ambulatory Julien Ronald Other [facility] Other Start: 11-23-2021 Telephone encounter Juilen Ronald [facility] Start: 08-10-2021 End: 08-10-2021 ambulatory Julien Ronald Other [facility] Other Start: 08-10-2021 Office outpatient vi sit 15 minutes Julien Ronald [facility] Procedures Date Procedure Procedure Detail Performing Clinician Start: 07-20-2025 X-ray of cervical spine Start: 07-20-2025 X-ray of lumbar spine, four views Start: 06-19-2025 Hemoglobin glycosylated a1c Wendy Chinchilla MD Work Phone: Start: 06-02-2025 Radex shoulder complete minimum 2 views Barb URIAS Work Phone: Start: 05-27-2025 Ultrasound elastography of liver Start: 05-19-2025 Radex spine lumbosacral 2/3 views Jr. Laya Pham DO Work Phone: Start: 03-17-2025 Hemoglobin glycosylated a1c Wendy Chinchilla MD Work Phone: Start: 02-23-2025 Radex foot complete minimum 3 views Brian Bryant DPM Work Phone: Start: 02-19-2025 Colonoscopy Brian Bryant DPM Work Phone: Start: 01-28-2025 [facility] URINE T PROTEIN CREAT RATIO Generic External Data Provider Start: 11-05-2024 Radiologic examination knee 1/2 views Barb Richards PA Work Phone: Start: 10-28-2024 Urnls dip stick/tablet rgnt non-auto w/o micrscp Wendy Chinchilla MD Work Phone: Start: 10-28-2024 Mammography Morena Farr PT Work Phone: Start: 10-16-2024 CRYOTHERAPY SKIN LESION Satish Koo COLOR LABORATORY TECHNICIAN-CIRCUIT JUDGE Work Phone: Start: 10-14-2024 STATUS COVID-19/FLU Kirk A Hackenbur g STRATEGY ANALYST Work Phone: Start: 09-16-2024 Hemoglobin glycosylated a1c Wendy Chinchilla MD Work Phone: Start: 08-19-2024 ALL MAGNESIUM Generic External Viet a Provider Start: 08-19-2024 ALL RENAL FUNCTION PANEL Generic Externa l Data Provider Start: 08-19-2024 ALL URIC ACID Generic External Viet a Provider Start: 08-19-2024 [facility] CBC WITH PLATELET NO DIFFERENTIAL Generic External Data Provider Start: 08-19-2024 HP PTH, INTRAOPERATIVE Generic Externa l Data Provider Start: 08-19-2024 [facility] VITAMIN D 25 [place] Generic External Viet a Provider Start: 08-19-2024 HP URINALYSIS, WITH MICROSCOPIC Generic External Data Provider Start: 08-19-2024 [facility] URINE T PROTEIN CREAT RATIO Generic External Data Provider Start: 06-13-2024 Hemoglobin glycosylated a1c Wendy Chinchilla MD Work Phone: Start: 01-03-2024 Ultrasound elastography of liver MD Wendy Chinchilla Work Phone: Start: 10-09-2023 Mammography Zander Cline [employer] Start: 08-10-2023 HEARING TEST/AUDIOGRAM Ester haines AuD, CCC-A Work Phone: Start: 04-27-2023 History of operative procedure on knee History of knee surgery Zanderrasta Cline [employer] Start: 08-30-2022 Ultrasound elastography of liver MD Wendy Chinchilla Work Phone: Start: 08-05-2020 Colonoscopy Zander Cline [employer] History of operative procedure on knee History of bilateral knee replacement Barb Richards PA Work Phone: Plan of Treatment Date Care Activity Detail Author Start: 02-19-2035 Screening for malignant neoplasm of colon [facility] Start: 08-05-2030 Screening for malignant neoplasm of colon [facility] Start: 05-15-2029 DTaP,Tdap and Td Vaccines (6 - Td or Tdap) DTaP,Tdap and Td Vaccines (6 - Td or Tdap) [facility] Start: 05-15-2029 Urine microalbumin profile DTaP,Tdap,Td Vaccine (6 - T d or Tdap) [facility] Start: 11-04-2026 Glaucoma screening Diabetes: Retinopathy Screening [facility] Start: 07-20-2026 End: 07-20-2026 Patient encounter procedure 07/20/2026 9:05 AM EDT Off ice Visit [facility] [address] [place] [address] Satish Koo, COLOR LABORATORY TECHNICIAN-CIRCUIT JUDGE [address] [place] [address] [facility] [place] [facility] Start: 06-24-2026 Urine screening for protein Diabetes: Urine Protein Screening [facility] Start: 02-19-2026 Tobacco Screening Tobacco Screening [facility] Start: 02-13-2026 Adult BMI Screening Adult BMI Screening [facility] Start: 02-13-2026 Tobacco Screening Tobacco Screening [facility] Start: 01-21-2026 Adult BMI Screening Adult BMI Screening [facility] Start: 01-21-2026 Tobacco Screening Tobacco Screening [facility] Start: 11-30-2025 End: 11-30-2025 Patient encounter procedure [facility] Start: 10-30-2025 Glaucoma screening Diabetes: Retinopathy Screening [facility] Start: 10-29-2025 End: 01-24-2026 DBT Breast - bilateral screening Bilateral screening mammogram with tomosynthesis Imaging Routine Breast cancer screening by mammogram Expected: 10/29/2025, Expires: 01/24/2026 [facility] Work Phone: Comment on above: Expected: 10/29/2025, Expires: Start: 10-28-2025 Screening for malignant neoplasm of breast Mammogram [facility] Start: 09-24-2025 End: 09-24-2025 Patient encounter procedure 09/24/2025 10:20 AM EST Office Visit [facility] [address] [place] [phone] Wendy Chinchilla MD [address] [place], [place] [phone] [facility] Start: 09-18-2025 Hemoglobin A1c measurement Diabetes: Hemoglobin A1C [facility] Start: 07-21-2025 End: 07-21-2025 Patient encounter procedure [facility] MELISSA KRUGER M Comment on above: Arrived Start: 07-15-[address] [facility] Work Phone: Start: 06-19-2025 End: 06-19-2026 Microalbumin/Creatinine panel in random Urine Microalbumin / creatinine urine ratio Lab Routine Type 2 diabetes mellitus with stage 3a chronic kidney disease, without long-term current use of insulin (HCC) Expected: 06/19/2025 (Approximate), Expires: 06/19/2026 [facility] Work Phone: Comment on above: Expected: 06/19/2025 (Approximate), Expi res: 06/19/2026 Start: 06-19-2025 End: 06-19-2025 Patient encounter procedure [facility] Comment on above: Arrived Start: 06-17-2025 Hemoglobin A1c measurement Diabetes: Hemoglobin A1C [facility] Start: 06-16-2025 End: 06-16-2025 Patient encounter procedure [facility] Comment on above: Arrived Start: 06-13-2025 Urine screening for protein Diabetes: Urine Protein Screening [facility] Start: 06-10-2025 End: 06-10-2025 Professional / ancillary services management 06/10/2025 2:00 PM EDT Ancillary Procedure [facility] [address] [place] [phone] [facility] Start: 06-08-2025 Influenza vaccination [facility] Start: 06-05-2025 End: 06-05-2025 Patient encounter procedure 06/05/2025 10:20 AM EDT Office Visit [facility] [address] [place] [phone] Wendy Chinchilla MD [address] [facility] [place] [address] [facility] Start: 06-02-2025 End: 06-02-2026 MR Cervical spine WO contrast MR cervical spine wo con trast Imaging Routine Cervical radiculopathy Expected: 06/02/2025, Expires: 06/02/2026 [facility] Comment on above: Expected: 06/02/2025, Expires: Start: 06-02-2025 End: 06-02-2025 Patient encounter procedure [facility] Comment on above: Acute pain of right shoulder (Primary Dx ) Start: 05-19-2025 End: 05-19-2025 Patient encounter procedure [facility] Comment on above: Arrived Start: 05-18-2025 End: 05-18-2025 Patient encounter procedure 05/18/2025 9:00 AM EDT Off ice Visit [facility] [address] [place] [phone] Jr. Laya Pham, DO [address] [facility] [address] [place] [address] [facility] Start: 03-18-2025 Hemoglobin A1c measurement Diabetes: Hemoglobin A1C [facility] Start: 03-17-2025 End: 03-17-2025 Patient encounter procedure [facility] Comment on above: Arrived Start: 02-23-2025 End: 02-23-2025 Patient encounter procedure [facility] Comment on above: Arrived Start: 02-19-2025 End: 02-19-2025 Admission to same day surgery center 02/19/2025 1:45 PM EDT - 02/19/2025 2:30 PM EDT Surgery [facility] - Endoscopy [address] [place] [phone] Cristine Win MD [address] [id number] ESOPHAGOGASTRODUODENOSCOPY DIAGNOSTIC [05440 (CPT )] [facility] Comment on above: ESOPHAGOGASTRODUODENOSCOPY DIAGNOSTIC [4 3235 (CPT )] Start: 02-19-2025 End: 02-19-2025 Colonoscopy COLONOSCOPY DIAGNOSTIC / SCREENING Portal venous hypertension (CMS-HCC) (K76.6) Gastroesophageal reflux disease, unspecified whether esophagitis present (K21.9) Family history of esophageal cancer (Z80.0) Family history of colon cancer (Z80.0) 02/19/2025 1:45 PM EDT [facility] Start: 02-19-2025 End: 02-19-2025 Esophagogastroduodenoscopy transoral diagnostic ESOPHAGOGASTRODUODENOSCOPY DIAGNOSTIC Portal venous hypertension (CMS-HCC) (K76.6) Gastroesophageal reflux disease, unspecified whether esophagitis present (K21.9) Family history of esophageal cancer (Z80.0) Family history of colon cancer (Z80.0) 02/19/2025 1:45 PM EDT [facility] Start: 02-19-2025 Subsequent hospital visit by physician 02/19/2025 1:45 PM EDT Hospital Encounter [facility] [address] [place] [phone] Cristine Win MD [address] [address] [facility] Start: 02-13-2025 End: 02-13-2025 Admission to establishment 02/13/2025 11:30 AM EDT [facility] [address] [place] [address] [facility] On [facility] Start: 01-28-2025 Urine culture [facility] Start: 12-31-2024 COVID-19 Vaccine ( season) COVID-19 Vaccine ( season) [facility] Start: 12-16-2024 End: 12-16-2025 Comprehensive metabolic 2000 panel - Serum or Plasma Comprehensive metabolic panel Lab Routine Essential hypertension (CMS/HCC) Type 2 diabetes mellitus with stage 3a chronic kidney disease, without long-term current use of insulin (HCC) (CMS/HCC) Expected: 12/16/2024 (Approximate), Expires: 12/16/2025 [facility] Comment on above: Expected: 12/16/2024 (Approximate), Expi res: 12/16/2025 Start: 12-16-2024 End: 12-16-2025 Hemoglobin A1c/Hemoglobin.total in Blood Hemoglobin A1c Lab Routine Essential hypertension (CMS/HCC) Type 2 diabetes mellitus with stage 3a chronic kidney disease, without long-term current use of insulin (HCC) (CMS/HCC) Expected: 12/16/2024 (Approximate), Expires: 12/16/2025 [facility] Comment on above: Expected: 12/16/2024 (Approximate), Expi res: 12/16/2025 Start: 12-16-2024 End: 12-16-2025 Lipid 1996 panel - Serum or Plasma Lipid panel Lab Routine Essential hypertension (CMS/HCC) Type 2 diabetes mellitus with stage 3a chronic kidney disease, without long-term current use of insulin (HCC) (CMS/HCC) Expected: 12/16/2024 (Approximate), Expires: 12/16/2025 [facility] Work Phone: Comment on above: Expected: 12/16/2024 (Approximate), Expi res: 12/16/2025 Start: 12-16-2024 End: 12-16-2024 Patient encounter procedure 12/16/2024 9:30 AM EDT Off ice Visit [facility] [address] [place] [address] Wendy Chinchilla MD [address] [place] [address] [facility] Start: 12-15-2024 Hemoglobin A1c measurement Diabetes: Hemoglobin A1C [facility] Start: 12-05-2024 End: 12-05-2024 Patient encounter procedure 12/05/2024 2:00 PM EST Off ice Visit [facility] [address] [place] [phone] Wendy Chinchilla MD [address] [place], [place] [phone] Arrived [facility] Comment on above: Arrived Start: 11-26-2024 End: 11-26-2024 Patient encounter procedure 11/26/2024 1:30 PM EST Off ice Visit [facility] [address] [place] [address] Elmer Wells DO [address] [place], [place] [phone] [facility] Start: 11-26-2024 End: 11-26-2024 Patient encounter procedure 11/26/2024 9:30 AM EST Off ice Visit [facility] [address] [place] [phone] Barb Richards, PA [address] [facility] [address] [place] [address] [facility] Start: 11-18-2024 End: 11-18-2024 Patient encounter procedure [facility] Comment on above: Arrived Start: 11-17-2024 End: 11-17-2024 Patient encounter procedure 11/17/2024 11:35 AM EST Office Visit [facility] [address] [place] [address] Satish Koo APRN-CIRCUIT JUDGE [address] [place], [place] [phone] [facility] Start: 11-14-2024 End: 11-14-2024 ambulatory 11/14/2024 10:30 AM EST Treatment [facility] [address] [facility] [address] [place] [address] Vaishali Hendricks PTA [facility] Start: 11-12-2024 End: 11-12-2024 Professional / ancillary services management 11/12/2024 1:30 PM EST Ancillary Procedure [facility] [address] [facility] [address] [place] [phone] [facility] Start: 11-12-2024 End: 11-12-2024 ambulatory 11/12/2024 11:00 AM EST Treatment [facility] [address] [facility] [address] [place] [address] Vaishali Hendricks PTA [facility] Start: 11-10-2024 End: 11-10-2024 ambulatory 11/10/2024 10:30 AM EST Treatment [facility] [address] [facility] [address] [place] [address] Vaishali Hendricks DOLL W[employer]OTED HAIR [facility] Start: 11-07-2024 End: 11-07-2024 ambulatory 11/07/2024 11:30 AM EST Treatment [facility] [address] [facility] [address] [place] [address] Vaishali Hendricks DOLL [employer] HAIR [facility] Start: 11-05-2024 End: 11-05-2024 ambulatory [facility] Start: 11-05-2024 End: 11-05-2024 Patient encounter procedure 11/05/2024 9:00 AM EST Off ice Visit [facility] [address] [place] [phone] Barb Richards, PA [address] [place] [address] Acute pain of right knee (Primary Dx) [facility] Comment on above: Acute pain of right knee (Primary Dx) Start: 11-04-2024 End: 11-04-2024 Professional / ancillary services management 11/04/2024 2:00 PM EST Ancillary Procedure [facility] [address] [facility] [address] [place] [phone] [facility] Start: 11-03-2024 End: 11-03-2024 ambulatory [facility] Comment on above: Arrived Start: 10-31-2024 End: 10-31-2024 ambulatory [facility] Comment on above: Chronic midline low back pain without sc iatica (Primary Dx); DDD (degenerative disc disease), thoracic; Degeneration of intervertebral disc of lumbar region, unspecified whether pain present Start: 10-29-2024 End: 10-29-2024 ambulatory [facility] Comment on above: Arrived Start: 10-28-2024 End: 10-28-2025 Bacteria identified in Urine by Culture Urine culture (clean catch) Microbiology Routine Pelvic pressure in female Expected: 10/28/2024 (Approximate), Expires: 10/28/2025 [facility] Work Phone: Comment on above: Expected: 10/28/2024 (Approximate), Expi res: 10/28/2025 Start: 10-28-2024 End: 10-28-2024 Professional / ancillary services management 10/28/2024 9:30 AM EST Ancillary Procedure [facility] [address] [facility] [address] [place] [id number] [facility] Start: 10-27-2024 End: 10-27-2024 Patient encounter procedure [facility] Comment on above: Postmenopausal atrophic vaginitis; Breast cancer screening by mammogram; Urgency incontinence Start: 10-27-2024 End: 10-27-2024 ambulatory 10/27/2024 8:30 AM EST Treatment [facility] [address] [facility] [address] [place] [phone] Vaishali Hendricks PTA [facility] Start: 10-24-2024 End: 10-24-2024 ambulatory [facility] Comment on above: Arrived Start: 10-22-2024 End: 10-22-2024 ambulatory [facility] Comment on above: Arrived Start: 10-20-2024 End: 10-20-2024 ambulatory 10/20/2024 1:00 PM EST Treatment [facility] [address] [place] [address] Vaishali Hendricks PTA Arrived [facility] Comment on above: Arrived Start: 10-17-2024 End: 10-17-2024 ambulatory 10/17/2024 11:30 AM EST Treatment [facility] [address] [place] [address] Vaishali Hendricks PTA [facility] Start: 10-16-2024 End: 10-16-2024 Patient encounter procedure [facility] Comment on above: Arrived Start: 10-14-2024 End: 10-14-2024 ambulatory 10/14/2024 11:30 AM EST Treatment [facility] [address] [place] [address] Vaishali Hendricks PTA [facility] Start: 10-14-2024 End: 10-14-2024 Patient encounter procedure 10/14/2024 11:00 AM EST Office Visit [facility] [address] [place] [phone] Kirk Rhodes NP [address] [place] [address] Arrived [facility] Comment on above: Arrived Start: 10-09-2024 Screening for malignant neoplasm of breast [facility] Start: 10-09-2024 End: 10-09-2024 ambulatory 10/09/2024 11:30 AM EST Treatment [facility] [address] [place] [address] Melissa Quesada PTA [facility] Start: 10-07-2024 End: 10-07-2024 ambulatory [facility] Comment on above: Arrived Start: 10-03-2024 End: 10-03-2024 ambulatory 10/03/2024 1:00 PM EST Treatment [facility] [address] [place] [address] Gracy Morgan, PT [facility] Start: 09-26-2024 End: 09-26-2024 ambulatory [facility] Comment on above: Chronic midline low back pain without sc iatica (Primary Dx) Start: 09-23-2024 End: 09-23-2024 ambulatory 09/23/2024 1:30 PM EST Evaluation [facility] [address] [facility] [address] [place] [address] Morena Farr, PT [address] [facility] [address] [place] [address] [facility] Start: 09-16-2024 End: 11-17-2025 DBT Breast - bilateral screening Bilateral screening mammogram with tomosynthesis Imaging Routine Encounter for screening mammogram for malignant neoplasm of breast Expected: 09/16/2024, Expires: 11/17/2025 [facility] Work Phone: Comment on above: Expected: 09/16/2024, Expires: Start: 09-16-2024 End: 09-16-2024 Patient encounter procedure [facility] Comment on above: Arrived Start: 09-12-2024 Hemoglobin A1c measurement Diabetes: Hemoglobin A1C [facility] Start: 08-21-2024 Medicare Annual Wellness (AWV) Medicare Annual Wellnes s (AWV) [facility] Start: 07-21-2024 End: 07-21-2024 Patient encounter procedure 07/21/2024 9:20 AM EDT Off ice Visit [facility] [address] [place] [address] Satish Koo, COLOR LABORATORY TECHNICIAN-CIRCUIT JUDGE [address] [place] [address] [facility] Start: 07-03-2024 End: 07-03-2026 Echocardiogram 2D complete Echocardiogram 2D complete Echocardiography Routine Portal venous hypertension (CMS/HCC) Expected: 07/03/2024 (Approximate), Expires: 07/03/2026 [facility] Work Phone: Comment on above: Expected: 07/03/2024 (Approximate), Expi res: 07/03/2026 Start: 07-03-2024 End: 07-03-2024 Patient encounter procedure 07/03/2024 2:00 PM EDT Off ice Visit [facility] [address] [place] [phone] Wendy Chinchilla MD [address] [place] [address] Arrived [facility] Comment on above: Arrived Start: 06-17-2024 End: 06-17-2024 Patient encounter procedure 06/17/2024 12:30 PM EDT Office Visit [facility] [address] [facility] [address] [place] [address] [facility] Start: 06-13-2024 Hemoglobin A1c measurement Diabetes: Hemoglobin A1C [facility] Start: 06-13-2024 End: 06-13-2025 Microalbumin/Creatinine panel in random Urine Microalbumin / creatinine urine ratio Lab Routine Type 2 diabetes mellitus with diabetic polyneuropathy, without long-term current use of insulin ([facility]) Expected: 06/13/2024 (Approximate), Expires: 06/13/2025 [facility] Work Phone: Comment on above: Expected: 06/13/2024 (Approximate), Expi res: 06/13/2025 Start: 06-13-2024 End: 06-13-2024 Patient encounter procedure [facility] Comment on above: Arrived Start: 06-08-2024 Influenza vaccination [facility] Start: 05-16-2024 End: 05-16-2024 Patient encounter procedure 05/16/2024 9:30 AM EDT Off ice Visit [facility] [address] [facility] [address] [place] [id number] Barb Richards PA [address] [facility] [address] [place] [address] [facility] Start: 04-27-2024 Urine screening for protein Diabetes: Urine Protein Screening [facility] Start: 03-24-2024 Complete blood count Hemoglobin/Hematocrit [facility] Start: 03-24-2024 Creatinine measurement Serum Creatinine [facility] Start: 03-06-2024 Hemoglobin A1c measurement HbA1C [facility] Start: 01-03-2024 [facility] Start: 12-07-2023 End: 12-07-2023 Patient encounter procedure 12/07/2023 9:30 AM EST Off ice Visit [facility] [address] [place] [address] Wendy Chinchilla MD [address] [place], [place] [id number] [facility] Start: 12-06-2023 Hemoglobin A1c measurement Diabetes: Hemoglobin A1C [facility] Start: 12-06-2023 Hemoglobin A1c/Hemoglobin.total in Blood HbA1C [facility] Start: 11-27-2023 End: 11-27-2023 Patient encounter procedure 11/27/2023 9:30 AM EST Off ice Visit [facility] [address] [place] [address] Eliel Higgins, DO [address] [place] [address] [facility] Start: 11-26-2023 End: 11-26-2023 ambulatory 11/26/2023 10:30 AM EST Treatment [facility] [address] [place] [address] Morena Farr, PT [address] [place] [address] [facility] Start: 11-21-2023 End: 11-21-2023 ambulatory [facility] Start: 11-19-2023 End: 11-19-2023 ambulatory [facility] Comment on above: Arrived Start: 11-15-2023 End: 11-15-2023 ambulatory 11/15/2023 12:30 PM EST Treatment [facility] [address] [facility] [address] [place] [address] Zander Cline, [employer] [facility] Start: 11-13-2023 End: 11-13-2023 ambulatory 11/13/2023 10:30 AM EST Treatment [facility] [address] [facility] [address] [place] [address] Zander Cline [employer] [facility] Start: 10-08-2023 Advance Directive Discussion Advance Directive Discussion [facility] Start: 10-08-2023 Behavioral Health Screening Behavioral Health Screening [facility] Start: 10-08-2023 Depression Assessment Depression Assessment [facility] Start: 06-08-2023 Covid-19 Vaccine ( season) Covid-19 Vaccine () [facility] Start: 06-08-2023 Influenza vaccination [facility] Start: 10-08-2022 ADVANCE DIRECTIVE DISCUSSION ADVANCE DIRECTIVE DISCUSSION [facility] Start: 10-08-2022 DEPRESSION ASSESSMENT DEPRESSION ASSESSMENT [facility] Start: 08-30-2022 [facility] Start: 2017 BONE DENSITY BONE DENSITY [facility] Start: 2017 Bone Density Screening Bone Density Screening [facility] Start: 2017 Fall Risk Screening Fall Risk Screening [facility] Start: 2017 PNEUMOCOCCAL: 65+ (1 - PCV) PNEUMOCOCCAL: 65+ (1 - PCV) [facility] Start: 2017 Screening for osteoporosis Bone Density Screening [facility] Start: 2012 Hepatitis B Vaccine (1 of 3 - Risk 3-dose series) Hepatitis B Vaccine (1 of 3 - Risk 3-dose series) [facility] Start: 2012 RSV Vaccine (1 - 1-dose 60+ series) RSV Vaccine (1 - 1-dose 60+ series) [facility] Start: 2002 SHINGRIX VACCINE (1 of 2) SHINGRIX VACCINE (1 of 2) [facility] Start: 1997 COLOGUARD (FIT-DNA) COLOGUARD (FIT-DNA) [facility] Start: 1997 Colonoscopy COLONOSCOPY [facility] Start: 1997 COLORECTAL CANCER SCREENING COLORECTAL CANCER SCREENING [facility] Start: [address] COLONOGRAPHY [facility] Start: 1997 DIABETES SCREEN DIABETES SCREEN [facility] Start: 1997 FECAL OCCULT BLOOD FECAL OCCULT BLOOD [facility] Start: 1997 LIPID SCREEN LIPID SCREEN [facility] Start: 1997 Screening for malignant neoplasm of colon [facility] Start: 1997 SIGMOIDOSCOPY SIGMOIDOSCOPY [facility] Start: 1992 Mammography [facility] Start: 1971 Urine microalbumin profile DTAP,TDAP,TD (1 - Tdap) [facility] Start: 1970 Adult BMI Follow Up Plan Adult BMI Follow Up Plan [facility] [employer] [facility] Start: 1970 Annual PCP Team Chronic Disease Visit Annual PCP Team Chronic Disease Visit [facility] Start: 1970 BP Controlled (<130/80) BP Controlled (<130/80) [facility] Start: 1970 Hemoglobin/Hematocrit Hemoglobin/Hematocrit [facility] Start: 1970 Hepatitis B surface antibody level LDL Cholesterol [facility] Start: 1970 HEPATITIS C SCREENING HEPATITIS C SCREENING [facility] Start: 1970 Hepatitis C screening Hepatitis C Screening [facility] Start: 1970 Serum Creatinine Serum Creatinine [facility] Start: 1964 Depression Screening Depression Screening [facility] Start: 1962 3 comp foot exam completed Diabetic Foot Exam [facility] Start: 1962 Diabetic foot examination Diabetic Foot Exam [facility] Start: 1962 Glaucoma screening Dilated Retinal Exam [facility] Start: 1962 Hepatitis B screening Urine Albumin:Creatinine Ratio [facility] Start: 1962 Hepatitis C antibody, confirmatory test Dilated Retinal Exam [facility] Start: 02-26-1953 COVID-19 VACCINE (#1) COVID-19 VACCINE (#1) [facility] Start: 1952 Screening for malignant neoplasm of colon [facility] End: 01-21-2026 CBC W Auto Differential panel - Blood CBC auto differential Lab Routine Abnormal liver enzymes 1 Occurrences starting 01/21/2025 until 01/21/2026 [facility] Comment on above: 1 Occurrences starting 01/21/2025 until 01/21/2026 End: 01-21-2026 Colonoscopy Colonoscopy GI Routine Famil y history of colon cancer 1 Occurrences starting 01/21/2025 until 01/21/2026 [employer] Work Phone: Comment on above: 1 Occurrences starting 01/21/2025 until 01/21/2026 End: 01-21-2026 Esophagogastroduodenoscopy EGD GI Routine Portal venou s hypertension ([facility]) Gastroesophageal reflux disease, unspecified whether esophagitis present Family history of esophageal cancer 1 Occurrences starting 01/21/2025 until 01/21/2026 [employer] Comment on above: 1 Occurrences starting 01/21/2025 until 01/21/2026 End: 01-21-2026 FibroTest-ActiTest, S FibroTest-ActiTest, S Lab Routine Abnormal liver enzymes 1 Occurrences starting 01/21/2025 until 01/21/2026 [employer] [facility] Comment on above: 1 Occurrences starting 01/21/2025 until 01/21/2026 End: 06-14-2024 HEARING TEST/AUDIOGRAM HEARING TEST/AUDIOGRAM Audiology Routine Other specified hearing loss, unspecified ear 1 Occurrences starting 06/14/2023 until 06/14/2024 [facility] Work Phone: Comment on above: 1 Occurrences starting 06/14/2023 until 06/14/2024 Hepatic function panel [facility] Patient referral [facility] Work Phone: Renal function 2000 panel - Serum or Plasma [facility] XR Cervical spine 4 or 5 Views X R cervical spine complete 4 to 5 views Imaging Routine Neck pain Cervical radiculopathy Ordered: 06/02/2025 [facility] Work Phone: Comment on above: Ordered: 06/02/2025 XR Cervical spine Vi ews W flexion and W extension [facility] XR Lumbar spine Views [facility] Immunizations Immunization Date Immunization Notes Care Provider [facility] 06-19-2025 influenza, high dose seasonal, preservative-free Wendy Chinchilla MD Work Phone: [facility] 07-03-2024 SARS-COV-2 (COVID-19 ) vaccine, mRNA, spike protein, LNP, PF, annita-sucrose, 30 mcg/0.3 mL Wendy Chinchilla MD Work Phone: [facility] 06-13-2024 Influenza, High-dose Seasonal, Quadrivalent, Preservative Free Wendy Chinchilla MD Work Phone: [facility] 06-13-2024 influenza virus vaccine, unspecified formulation Cristine Win MD Work Phone: [facility] 09-06-2023 Influenza, High-dose Seasonal, Quadrivalent, Preservative Free Zander Cline [facility] 09-06-2023 influenza virus vaccine, unspecified formulation Ivan Patton PhD Work Phone: [facility] 06-30-2022 influenza, high dose seasonal, preservative-free Zander Cline [facility] 06-30-2022 Influenza, High-dose Seasonal, Quadrivalent, Preservative Free Zander Cline [facility] 06-30-2022 influenza virus vaccine, unspecified formulation Jenni Serrano MD Work Phone: [facility] 11-17-2021 pneumococcal polysaccharide vaccine, 23 valent Zander Cline [facility] 10-04-2021 Influenza, Seasonal, Quadrivalent, Adjuvanted Zander Cline [facility] 10-04-2021 influenza virus vaccine, unspecified formulation Ester Burrell, [facility] Work Phone: [facility] 08-09-2020 zoster vaccine recombinant Zander Cline [facility] 06-07-2020 influenza, injectabl e, quadrivalent, preservative free Zander Hung [facility] 05-21-2020 influenza, injectabl e, quadrivalent, preservative free Zander Hung [facility] 05-21-2020 zoster vaccine recombinant Zander Cline [facility] 06-25-2019 influenza, high dose seasonal, preservative-free Zander Hung [facility] 05-15-2019 tetanus toxoid, redu kisha diphtheria toxoid, and acellular pertussis vaccine, adsorbed Zander Cline [facility] 03-31-2019 tetanus and diphther ia toxoids, adsorbed, preservative free, for adult use (5 Lf of tetanus toxoid and 2 Lf of diphtheria toxoid) Zander Cline [facility] 03-31-2019 tetanus toxoid, redu kisha diphtheria toxoid, and acellular pertussis vaccine, adsorbed Julien Ronald Other [facility] [employer] Other 07-04-2018 Seasonal trivalent influenza vaccine, adjuvanted, preservative free Zander Cline [facility] 02-07-2018 pneumococcal conjuga te vaccine, 13 valent Zander Cline [facility] 06-18-2017 influenza, injectabl e, quadrivalent, preservative free Zander Cline [facility] 05-21-2017 influenza, injectabl e, quadrivalent, preservative free Zanderrasta Cline [facility] 08-04-2016 influenza, injectabl e, quadrivalent, preservative free Zander Cline [facility] 06-19-2016 pneumococcal polysaccharide vaccine, 23 valent Zander Cline [facility] 08-31-2015 influenza, seasonal, injectable, preservative free Zander Cline [facility] 07-20-2015 influenza, seasonal, injectable Julien Ronald Other [facility] [employer] Other 03-12-2015 zoster vaccine, live Zander Cline [facility] 07-13-2014 influenza, seasonal, injectable, preservative free Zander Cline [facility] 08-18-2013 influenza virus vaccine, whole virus Zander Cline [facility] 08-08-2013 seasonal influenza, intradermal, preservative free Zander Cline [facility] 07-25-2012 influenza, seasonal, injectable, preservative free Zander Hung [facility] 07-12-2009 diphtheria, tetanus toxoids and pertussis vaccine Zander Cline [facility] 07-12-2009 tetanus toxoid, redu kisha diphtheria toxoid, and acellular pertussis vaccine, adsorbed Zander Hung [facility] Payers Date Payer Category Payer Medicare HMO [employer] [id number] 2024 Self-pay [id number] 2024 Unknown [id number] 2022 Medicare (Managed Care) 1.2. [id number] 2022 Unknown [id number]. 1.13.693.2 .7.3.977366.315 2021 Unknown [id number] 2.16.840.1.538291.19 2018 Medicare [id number]. 1.13.159.2 .7.3.351445.315 1959 Medicare [id number] 2.16.840.1.903103.19 1959 Private Health Insurance [id number] 2.16.840.1.750167.19 1952 Unknown [id number] 2.16.840.1.818742.3.579.2 .593 1952 Unknown [id number] 2.16.840.1.669002.3.579.2 .593 1952 Unknown [id number] 2.16.840.1.395663.3.579.2 .593 1952 Unknown [id number] 2.16.840.1.676132.3.579.2 .1286 1952 Unknown [id number] 2.16.840.1.969191.3.579.2 .1286 1952 Unknown [id number] 2.16.840.1.001294.3.579.2 .1286 1952 Unknown [id number] 2.16.840.1.176950.3.579.2 .128 1952 Unknown [id number] 2.16.840.1.012951.3.579.2 .128 1952 Unknown [id number] 2.16.840.1.776025.3.579.2 .128 1952 Unknown [id number] 2.16.840.1.916536.3.579.2 .128 1952 Unknown [id number] 2.16.840.1.578211.3.579.2 .1286 1952 Unknown [id number] 2.16.840.1.736690.3.579.2 .128 1952 Unknown [id number] 2.16.840.1.682723.3.579.2 .1259 1952 Unknown [id number] 2.16.840.1.326096.3.579.2 .1259 1952 Unknown [id number] 2.16.840.1.891849.3.579.2 .1259 1952 Unknown [id number] 2.16.840.1.802619.3.579.2 .1259 1952 Unknown [id number] 2.16.840.1.963283.3.579.2 .1259 1952 Unknown [id number] 2.16.840.1.676970.3.579.2 .125 1952 Unknown [id number] 2.16.840.1.444686.3.579.2 .125 1952 Unknown [id number] 2.16.840.1.383027.3.579.2 .1258 1952 Unknown [id number] 2.16.840.1.196842.3.579.2 .125 1952 Unknown [id number] 2.16.840.1.713907.3.579.2 .1258 1952 Unknown [id number] 2.16.840.1.585815.3.579.2 .1258 1952 Unknown [id number] 2.16.840.1.924614.3.579.2 .1258 1952 Unknown [id number] 2.16.840.1.720789.3.579.2 .1258 1952 Unknown [id number] 2.16.840.1.108961.3.579.2 .1258 1952 Unknown [id number] 2.16.840.1.291725.3.579.2 .1258 1952 Unknown [id number] 2.16.840.1.442570.3.579.2 .1258 1952 Unknown [id number] 2.16.840.1.068819.3.579.2 .1258 1952 Unknown [id number] 2.16.840.1.502297.3.579.2 .1258 1952 Unknown [id number] 2.16.840.1.838386.3.579.2 .1258 1952 Unknown [id number] 2.16.840.1.772412.3.579.2 .1258 1952 Unknown [id number] 2.16.840.1.523878.3.579.2 .1258 1952 Unknown [id number] 2.16.840.1.106912.3.579.2 .125 1952 Unknown [id number] 2.16.840.1.932691.3.579.2 .1258 1952 Unknown [id number] 2.16.840.1.234633.3.579.2 .1258 1952 Unknown [id number] 2.16.840.1.793209.3.579.2 .1258 1952 Unknown [id number] 2.16.840.1.938211.3.579.2 .1258 1952 Unknown [id number] 2.16.840.1.116821.3.579.2 .1258 1952 Unknown [id number] 2.16.840.1.551558.3.579.2 .1258 1952 Unknown [id number] 2.16840.1.921361.3.579.2 .1258 1952 Unknown [id number] 2.16840.1.615048.3.579.2 .1258 1952 Unknown [id number] 2.16840.1.815883.3.579.2 .1258 1952 Unknown [id number] 2.16840.1.807925.3.579.2 .1258 1952 Unknown [id number] 2.16.840.1.886068.3.579.2 .1258 1952 Unknown [id number] 2.16.840.1.754193.3.579.2 .1258 1952 Unknown [id number] 2.16.840.1.623996.3.579.2 .1258 1952 Unknown [id number] 2.16.840.1.348441.3.579.2 .1258 1952 Unknown [id number] 2.16.840.1.800148.3.579.2 .1258 1952 Unknown [id number] 2.16.840.1.870167.3.579.2 .1259 1952 Unknown [id number] 2.16.840.1.853424.3.579.2 .1259 1952 Unknown [id number] 2.16.840.1.445798.3.579.2 .1258 1952 Unknown [id number] 2.16.840.1.169109.3.579.2 .125 1952 Unknown [id number] 2.16.840.1.350546.3.579.2 .1258 1952 Unknown [id number] 2.16.840.1.983601.3.579.2 .1259 1952 Unknown [id number] 2.16.840.1.482145.3.579.2 .1259 Private Health Insurance [facility] [id number] Unknown [id number] 2.16.840.1.365271.3.579.2 .531 Unknown [id number] 2.16.840.1.664575.3.579.2 .531 Unknown [id number] 2.16.840.1.059094.3.579.2 .531 Unknown [id number] 2.16840.1.671165.3.579.2 .531 Unknown [id number] 2.16840.1.782088.3.579.2 .531 Social History Date Type Detail Facility Unknown if ever smoked [facility] Start: 08-21-2023 End: 03-11-2025 Sex Assigned At [facility] Start: 1950 Sex Assigned At Female [facility] Tobacco smoking stat [facility] Tobacco smoking consumption unknown [facility] Start: 1950 Sex Assigned At Not on file [facility] Start: 05-29-2023 Gender identity Identifies as female gender (finding) [facility] Start: 06-15-2023 Sexual orientation Heterosexual (finding) [facility] Start: 04-27-2023 End: 12-07-2023 Tobacco smoking status NHIS Never smoked tobacco [facility] Start: 04-27-2023 End: 12-07-2023 Tobacco use and exposure Smokeless tobacco non-user [facility] Start: 11-08-2023 End: 07-21-2025 Alcohol intake Ex-drinker (finding) [facility] Start: 08-21-2023 End: 03-11-2025 History of Social function [facility] How often to you hav e a drink containing alcohol? Never [facility] Start: 12-20-2022 How many standard drinks containing alcohol do you have on a typical day? Patient does not drink [facility] Start: 05-16-2023 Alcohol Comment Caffeine intake: 1-2 cups per day coffee [facility] Do you belong to any clubs or organizations such as mu-ism groups, unions, fraSocialware or athletic groups, or school groups? Yes [...] Comment never used it [facility] Start: 12-07-2023 End: 06-13-2024 Alcohol Comment occasional glass of wine - 1 maybe in 6 mo. [facility] Start: 01-21-2025 End: 02-19-2025 Alcoholic beverage intake Current non-drinker of alcohol (finding) [facility] Start: 08-05-2020 Alcohol Comment rarely [facility] Start: 05-13-2015 End: 02-05-2025 Sex Female (finding) [employer] [facility] Start: 03-17-2025 Alcohol Comment occasional glass of wine - 1 maybe in 6 mo. to 1 yr. [facility] Medical Equipment Procedure Code Equipment Code Equipment Origin al Text Equipment Identifier Dates Lancets (OneTouc h Delica Plus [id number] Start: 04-07-2023 OneTouch Verio t est strip [id number] FINGERSTICK DAILY. [id number] Start: 02-04-2024 End: 07-21-2024 USE AND DISCARD 1 LANCET FINGERSTICK DAILY [id number] Start: 12-21-2023 FINGERSTICK DAILY. [id number] Start: 07-21-2024 End: 10-27-2024 FINGERSTICK DAILY. [id number] Start: 10-28-2024 End: 04-05-2025 Apply 1 Lancet topically Daily [id number] Start: 10-28-2024 End: 10-28-[address] c Rpl [id number] - Sna - [id number] Start: 07-23-2018 Cmpt Ptlr 32mm N xgn Alply Rpl [id number] + [id number] + [id number] - Sna - [id number] Start: 07-23-2018 Ins Artc 3-4 Ef 10mm Knfx Nxgn Lpsflx Rpl [id number] + [id number] - Sna - [id number] Start: 07-23-2018 Cmpt Fem E Kn Rt Lpsflx Gndr Rpl [id number] - Sna - [id number] Start: 07-23-2018 Plt Tib [id number] Nxgn Kn Cmnt Rpl [id number] + [id number] - Sna - [id number] Start: 07-23-2018 FINGERSTICK DAILY [id number] Start: 04-05-2025 Goals Date Patient Goal Desired Activity /State Personal health goal Comment on above: Formatting of this n ote might be different from the original. Evaluation of progress towards goal: home at [place] Personal health goal Clinical Notes 08-10-2021 to 07-21-2025 Satish Koo, YAQUELIN-CIRCUIT JUDGE - 07/21/2025 9:20 AM EDTTelephone Encounter - Neal Patino NP - 06/29/2025 11:46 AM EDTTelephone Encounter - Neal Patino NP - 06/29/2025 11:46 AM EDT Note Date & Type Note Facility 07-21-2025 History of Present illness Narrative Skin Check Location: Patient requests a full body skin examination Dermatologic history: history of Actinic Keratosis Last visit: 1 year ago Established patient All pertinent medical history, medications, and allergies were reviewed. General Exam: alert, oriented to person, place, and time, normal affect, well appearing Accompanied by spouse Scalp, Examined , exam limited by hair Right leg Examined Head, Face Examined Left leg Examined Neck Examined Right foot Examined Chest Examined Left foot Examined Back Examined Buttocks Examined Patient kept underwear on Abdomen Examined Digits,nails: Examined Right arm Examined Left arm Examined Lymphatics: Not examined Hands Examined Skin Exam 1. CAPILLARY ANGIOMA Generalized Scattered randall-red papule(s). The patient was informed that angiomas are benign growths on the the skin. No treatment is necessary. 2. MELANOCYTIC NEVUS OF TRUNK Generalized Scattered benign appearing, regular brown to light brown melanocytic papules and macules with similar morphology Counseled regarding these benign growths. Rarely, a nevus can develop into malignant melanoma, so any changing nevi should be promptly re-evaluated. 3. SEBORRHEIC KERATOSIS Generalized Stuck on verrucous, quiroz-brown papules and plaques. Patient was counseled regarding these benign growths. Removal is normally not necessary, but they may be removed if they are symptomatic or for cosmetic reasons. Next Visit: 1 year documented in this encounter [facility] 06-29-2025 Telephone encounter Note Discussed with Dr. Pham. She needs to see Dr. Heller. [facility] Work Phone: 06-29-2025 Miscellaneous Notes Discussed with Dr. Pham. She needs to see Dr. Heller. Vivian called back asking for urgent appt today Can you see today? Vivian had gone to ER Sunday night to [facility] she was sewing needle broke off in her finger and they were unable to get it out they have referred her to Orthopaedic for possible removal. She wanted to know if this is something that Dr. Pham can do? Please advise (She was at [facility] notes are in chart) pls advise documented in this encounter [facility] 06-29-2025 Telephone encounter Note Vivian called back asking for urgent appt today Can you see today? [facility] 06-29-2025 Telephone encounter Note Vivian had gone to ER Sunday night to [facility] she was sewing needle broke off in her finger and they were unable to get it out they have referred her to Orthopaedic for possible removal. She wanted to know if this is something that Dr. Pham can do? Please advise (She was at [facility] notes are in chart) pls advise [facility] 06-19-2025 Telephone encounter Note Pt was here checking out and she said she wanted to give a complaint and wasn't sure who to speak to. I told her that I would put in a note to Dr Chinchilla and her team. She said that [facility] will text her to confirm her appt from here and she will confirm it.. then she said she gets SOOOOO many texts even after confirming it. She said her other [facility] appts from different [facility] locations doesn't do that. She said it never happens with Dr Pham's appts. She said she doesn't want to turn it off because she wants a reminder, but she said does there have to be SOOO many? :) I told her someone can contact her that knows more about the program in our system :) [facility] 06-19-2025 Miscellaneous Notes Pt was here checking out and she said she wanted to give a complaint and wasn't sure who to speak to. I told her that I would put in a note to Dr Chinhcilla and her team. She said that [facility] will text her to confirm her appt from here and she will confirm it.. then she said she gets SOOOOO many texts even after confirming it. She said her other [facility] appts from different [facility] locations doesn't do that. She said it never happens with Dr Pham's appts. She said she doesn't want to turn it off because she wants a reminder, but she said does there have to be SOOO many? :) I told her someone can contact her that knows more about the program in our system :) documented in this encounter [facility] 06-19-2025 History of Present illness Narrative Associated Problem(s): Type 2 diabetes mellitus with diabetic chronic kidney disease (HCC) Orders: POCT Glycated hemoglobin, total Microalbumin / creatinine urine ratio; Future Associated Problem(s): Essential hypertension BP controlled. Associated Problem(s): Hypertensive chronic kidney disease with stage 1 through stage 4 chronic kidney disease, or unspecified chronic kidney disease Sees Dr Ruff. Numbers have been stable. Associated Problem(s): Mixed hyperlipidemia Continue Lipitor. Associated Problem(s): Stage 3a chronic kidney disease (CMS-HCC) Subjective ?Quick Links Last Note in Specialty Snapshot Edit RFV/CC Edit Screenings Current Meds Patient ID: Vivian Duran is a 74 y.o. female who presents for Diabetes (Needs flu shot and microalbumin ). HPI History of Present Illness The patient presents for evaluation of neck pain, diabetes, and cholesterol management. 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 Additionally, a broken screw was noted. Referral to a neurosurgeon has been made, and further instructions are awaited. Sleep has been disrupted due to the pain, despite using Tylenol PM. Last night, three 325 mg Tylenol tablets were taken, raising concerns about potential kidney damage. Using a recliner for comfort, she managed to sleep for at least 5 hours, which is rare. Nerves are described as highly sensitive. An incident involving a popping sensation in the back, tender to touch, is recalled, possibly related to the ribs or another issue. Current medications include Lipitor for cholesterol management. Blood pressure is well-controlled. A history of sleep apnea was previously a concern during surgical procedures. Weight this morning was 199.6 pounds, down from 221 pounds. Sleep: Reports disrupted sleep due to pain; managed to sleep for at least 5 hours last night using a recliner. PAST SURGICAL HISTORY: - Fusion at C6-7 - History of sleep apnea ?Quick Review Review Full History Edit History Meds - amoxicillin (Amoxil) 500 MG tablet atorvastatin (Lipitor) 10 MG tablet Blood Glucose Monitoring Suppl ([email or web address] Verio Reflect) w/Device kit clotrimazole (Lotrimin) 1 % cream Cranberry 425 MG capsule Farxiga 10 MG fluocinonide (Lidex) 0.05 % cream fluticasone (Flonase) 50 MCG/ACT nasal spray furosemide (Lasix) 20 MG tablet GaviLyte-G 236 g solution ibuprofen 200 MG tablet W-Nqrnzglqcxog-Hruqm-B12-B6 (Metanx) 3-90.314-2-35 MG capsule Lancets (PureForge Delica Plus [id number]) misc levothyroxine (Synthroid, Levoxyl) 100 MCG tablet lisinopril 2.5 MG tablet metFORMIN (Glucophage) 500 MG tablet Multiple Vitamins-Minerals (Womens Multi Vitamin & Mineral) tablet [email or web address] Verio test strip oxybutynin XL (Ditropan-XL) 10 MG 24 hr tablet prednisoLONE acetate (Pred-Forte) 1 % ophthalmic suspension Rybelsus 7 MG tablet Xdemvy 0.25 % solution --- PMH - Arthritis Witt palsy Carpal tunnel syndrome Cholecystitis 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 CKD (chronic kidney disease), stage III ([facility]-HCC) Colon polyps Decreased hearing of both ears Diabetes (HCC) Disease of thyroid gland DUB (dysfunctional uterine bleeding) ETD (Eustachian tube dysfunction), bilateral Frozen shoulder GERD (gastroesophageal reflux disease) Headache Headache, tension-type HTN (hypertension) Hyperlipidemia Hypothyroidism Intervertebral disc disorder with myelopathy, cervical region Nasal drainage 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 Avoid pulling in long tables of results. Comment on relevant results to support your medical decision making. BP 122/74 Pulse 83 Ht 5' 6.5 Wt 201 lb 3.2 oz SpO2 97% BMI 31.99 kg/m Physical Exam Physical Exam General Appearance: Normal. Vital signs: Within normal limits. HEENT: Within normal limits. Respiratory: Clear to auscultation, no wheezing, rales or rhonchi. Cardiovascular: regular rate and rhythm with no murmur. Back, Musculoskeletal: Tenderness noted in the right mid rib area at the sternum. Extremities: no edema, palpable pulses. Skin: Warm and dry, no rash. Neurological: Normal. Psychiatric: Normal. Other observations: Weight is 199.6 pounds. ?Quick Links Full Problem List Allergy Back Pain Cardiology CHF Chronic Pain Diabetes GI Hypertension Thyroid Assessment & Plan Type 2 diabetes mellitus with stage 3a chronic kidney disease, without long-term current use of insulin (HCC) Orders: POCT Glycated hemoglobin, total Microalbumin / creatinine urine ratio; Future Encounter for immunization Orders: Flu vaccine, high dose seasonal, PF ([id number]) (Fluzone High Dose) Essential hypertension BP controlled. Hypertensive chronic kidney disease with stage 1 through stage 4 chronic kidney disease, or unspecified chronic kidney disease Sees Dr Ruff. Numbers have been stable. Stage 3a chronic kidney disease (CMS-HCC) Mixed hyperlipidemia Continue Lipitor. Assessment & Plan 1. Neck pain: - The patient's neck pain is attributed to two disks crowded with arthritis at C5-6, which are compressing the nerves. There is also a broken screw noted. - She has been referred to a neurosurgeon for further evaluation. If she does not hear from the neurosurgeon's office within six days, she should call them. - She is advised to continue her current pain management regimen, including the use of Tylenol 325 mg, not exceeding two tablets at a time. 2. Diabetes mellitus: - Her A1c level is currently at 6.6, indicating good control of her diabetes. - A urine sample will be collected today to monitor kidney function. - No changes to her current medication regimen are necessary at this time. 3. Cholesterol management: - She is currently taking Lipitor for cholesterol management. No changes to her current medication regimen are necessary at this time. 4. Blood pressure management: - Her blood pressure is well-controlled. No changes to her current medication regimen are necessary at this time. 5. Sleep apnea: - She has a history of sleep apnea, which was previously a concern during surgical procedures. However, it is not expected to pose an issue for any potential future procedures. 6. Health maintenance: - She will receive her influenza vaccine today. documented in this encounter [facility] 06-16-2025 History of Present illness Narrative Images from the original note were not included. HISTORY OF PRESENT ILLNESS: EST PT Vivian Duran is an 74 y.o. @ female. *RT SHOULDER/C-SPINE* (EST PT; MOST RECENT VISIT WITH [facility]) RECHECK RT SHOULDER/NECK PAIN FOR A WHILE, HAS GOTTEN WORSE , XRAY C-SPINE 06/02/25 EPIC XRAY RT SHOULDER EPIC 06/02/25 MRI C-SPINE 06/10/25 EPIC SUBACROMIAL INJECTION 05/23/22 HX RT SHOULDER RCR 2012 DR HIGGINS. HX HERNIATED DISC C-SPINE DR HIGGINS. CONTINUES TO HAVE SHOULDER PAIN- ARM IS VERY UNCOMFORTABLE- DIFFICULTY FINDING A POSITION THAT IS COMFORTABLE - CONSTANT HEADACHE- PT STATES HER EMOTIONS ARE ALL OVER THE PLACE - +RADIATING PAIN DOWN RT ARM- RARE N/T - NOTES LIMITED ROM WITH RT SHOULDER GLEN: 02/2022, FELL OVER A SPEED BUMP AND LANDED ON HANDS AND KNEES. RT HANDED. *LUMBAR SPINE* EST PT RECHECK LOW BACK PAIN- HERE FOR MRI LUMBAR SPINE RESULTS 05/25/25 XRAY LUMBAR SPINE 05/19/25 MRI LUMBAR SPINE 05/25/25 PT C/O PAIN - PAIN MID BACK- OCCASIONAL RADIATING PAIN-DENIES N/T- +BIOFREEZE- TRIED TYLENOL; DENIES RELIEF Back Pain This is a chronic problem. The current episode started more than 1 year ago. The problem occurs constantly. The problem has been gradually worsening. Associated symptoms include headaches. Pertinent negatives include no abdominal pain, chest pain, fever, numbness or weakness. The symptoms are aggravated by twisting. ALLERGIES: Allergies Allergen Reactions Wound Dressing Adhesive Rash HOME MEDICATIONS: Current Outpatient Medications Medication Instructions amoxicillin (Amoxil) 500 MG tablet 4 tabs PO once 30-60 mins before procedure with food atorvastatin (LIPITOR) 10 mg, Oral, Daily Blood Glucose Monitoring Suppl ([email or web address] Verio Reflect) w/Device kit clotrimazole (Lotrimin) 1 % cream Topical, 2 times daily Cranberry 425 MG capsule Farxiga 10 mg, Oral, Daily fluocinonide (Lidex) 0.05 % cream Apply to rash up to twice a day when flared, do not use one the face, groin, or underarms, 30 day supply fluticasone (Flonase) 50 MCG/ACT nasal spray 1 spray, Each Nostril, Daily, Shake gently. Before first use, prime pump. After use, clean tip and replace cap. furosemide (LASIX) 20 mg, Oral, Daily GaviLyte-G 236 g solution Take 4,000 mL by mouth once for 1 dose. Take per written instructions given at office for colonoscopy preparation ibuprofen 200 mg, Every 6 hours PRN Z-Rsgbodniqafy-Xpjzc-B12-B6 (Metanx) 3-90.314-2-35 MG capsule TAKE 1 CAPSULE BY MOUTH TWO TIMES A DAY DIRECTED Lancets (Modern FeedTouch Delica Plus [id number]) misc 1 Lancet, Topical, Daily levothyroxine (SYNTHROID, LEVOXYL) 100 mcg, Oral, Daily lisinopril 2.5 mg, Oral, Daily metFORMIN (Glucophage) 500 MG tablet TAKE 1 TABLET EVERY MORNINGAND 1 TABLET EVERY EVENING WITH MEALS Multiple Vitamins-Minerals (Womens Multi Vitamin & Mineral) tablet OneTouch Verio test strip FINGERSTICK DAILY oxybutynin XL (Ditropan-XL) 10 MG 24 hr tablet Take 1 tablet by mouth once a day prednisoLONE acetate (Pred-Forte) 1 % ophthalmic suspension instill 1 DROP IN BOTH EYES FOUR TIMES DAILY FOR 7 DAYS then instill 1 DROP IN BOTH EYES TWICE DAILY FOR 7 DAYS then stop Rybelsus 7 MG tablet TAKE 1 TABLET IN THE MORNING BEFORE A MEAL Xdemvy 0.25 % solution INSTILL 1 DROP IN BOTH EYES TWICE DAILY FOR 6 WEEKS PHYSICAL EXAM: Spine Musculoskeletal Exam Gait Right Heel walk: able to heel walk Toe walk: able to toe walk Left Heel walk: able to heel walk Toe walk: able to toe walk Gait additional comments: Bilateral lower extremities neurovascularly intact without a sensory or motor deficits noted. Deep tendon reflexes were present and equal bilaterally Dorsalis pedis and posterior tibial pulses were present and equal bilaterally Sensation to light touch was intact to all dermatomes bilaterally to lower extremities Compartments were soft to bilateral lower extremities. Strength major muscle groups: Quadriceps 5/5 bilaterally, hamstrings 5/5 bilaterally, foot dorsiflexion 5/5 bilaterally, foot plantar flexion 5/5 bilaterally, foot eversion 5/5 bilaterally, foot inversion 5/5 bilaterally. Toe extension 5/5 bilaterally, toe flexion 5/5 bilaterally. Straight leg raise: Right negative, left negative. Pain noted with deep palpation over lower paravertebral lumbar spine. Positive Spurling sign bilaterally. Vitals: There is no height or weight on file to calculate BMI. Tobacco Use: Low Risk (06/16/2025) Patient History Smoking Tobacco Use: Never Smokeless Tobacco Use: Never Passive Exposure: Not on file Alcohol Use: Not At Risk (03/11/2025) AUDIT-C Frequency of Alcohol Consumption: Never Average Number of Drinks: Patient does not drink Frequency of Binge Drinking: Never IMAGING: Procedures Orders Placed This Encounter Procedures Ambulatory referral to Neurology Standing Status: Future Expected Date: 06/16/2025 Expiration Date: 12/14/2025 Referral Priority: Routine Referral Type: Consultation Referral Reason: Specialty Services Required Referred to Provider: Michele Armijo MD Requested Specialty: Neurology Number of Visits Requested: 1 ASSESSMENT: ICD-10-CM 1. Neck pain M54.2 Ambulatory referral to Neurology 2. Cervical radiculopathy M54.12 Ambulatory referral to Neurology PLAN: We have discussed her MRI of her lumbar spine and C-spine today at length. We have recommended an appointment with Dr. Armijo for bilateral upper extremity pain and cervical radiculopathy. We have discussed restrictions and home exercise program in the interim. We'll see her back on a when necessary basis. documented in this encounter [facility] 06-05-2025 History of Present illness Narrative Associated Problem(s): Essential hypertension BP controlled. Associated Problem(s): Stage 3a chronic kidney disease ([facility]-HCC) Stable. Sees Dr Glez. Subjective ?Quick Links Last Note in Specialty Snapshot Edit RFV/CC Edit Screenings Current [facility] Patient ID: Vivian Duran is a 74 y.o. female who presents for ER Follow-up (Need refill of flonase- [facility]/Discuss oxybutnin ). HPI Flowsheet Row Telephone from 05/28/2025 in [facility] with Ria Sauer MA Hospital Information ED, Hospital or Care Home Facility Discharge? ED Patient has been contacted within 2 days of being seen in the ED Yes Diagnosis Chest pain Discharge Date 05/25/25 Discharged To: Home Setting Discharge Hospital [facility] Engagement Admission Date 05/25/25 Medications Discharge medications reviewed and reconciled from hospital? Not applicable Is the patient having any side effects they believe may be caused by any medication additions or changes? No Does the patient have all medications ordered at discharge? Not applicable Appointments Self Management Patient Teaching Does the patient have access to their discharge instructions? Yes What is the patient's perception of their health status since discharge? Improving Wrap Up History of Present Illness The patient presents for evaluation of back pain, neck pain, dry eyes, diabetes mellitus, and bladder issues. She recently had her annual knee checkup with Dr. Higgins, during which she reported no issues with her knees but expressed concerns about her back. She has been diagnosed with spinal degeneration and has undergone physical therapy. An MRI was ordered, but she has not yet received the results. She is scheduled to see Dr. Higgins on 06/16/2025. She experiences discomfort when sitting or lying down, which worsens at night. She uses Biofreeze for her back pain. She can move her neck but feels strain depending on her movements. She reports no tenderness in her neck. She also sought medical attention for shoulder pain, hoping a cortisone injection would alleviate the discomfort. However, one night she experienced sudden nerve sensations throughout her body, primarily on the right side, accompanied by toe spasms. She felt a popping sensation that seemed to move from her back to the front, intensifying her shoulder pain. This led her to suspect a herniated disk in her neck, similar to a previous incident where she had severe shoulder and arm pain due to a herniated disk. She underwent surgery for the herniated disk, which involved the placement of a titanium plate. Recent x-rays revealed a broken screw in the plate, necessitating an MRI. She has been experiencing intermittent headaches and mild neck pain, which worsened after the popping sensation. The broken screw was identified as a potential source of widespread body pain. She occasionally feels nauseous and has had episodes of diarrhea. Her sleep is often disrupted due to discomfort, and she sometimes takes Tylenol PM to help her sleep. She has been experiencing severe dry eyes, which she first noticed in 10/2024. Despite using various eye drops, her condition has not improved. She was informed that her insurance would not cover two proposed procedures. She was diagnosed with mites in her eyes and is currently using a drop to eliminate them, a process expected to take 6 weeks. She is under the care of Dr. Aguilera at [facility]. She is currently at stage 3 of the disease, with stage 4 being irreversible. She is considering a stem cell replacement procedure called [id number], which costs $2000. Her blood sugar levels have been high but have returned to normal after she adjusted her diet. She has had over a week of good readings and is pleased with this progress. She did not feel that her new medication was as effective as Januvia, but it may have prevented her blood sugar levels from becoming too high. Her blood sugar has reached 180 a few times but is now back within range. She ran out of oxybutynin 10 mg, which she had reduced from 15 mg due to frequent urination. She is considering whether she needs to continue the medication or if there are alternative treatments available. She wears a pad when leaving the house due to concerns about not reaching a bathroom in time. She is contemplating whether to return to Dr. Castaneda for a reexamination and referral. She prefers not to start any new medications at this time and wishes to wait until her next appointment for her blood sugar before reevaluating her treatment plan. She is curious about whether urethral dilation would help her empty her bladder more completely. She recalls that an ultrasound once showed incomplete bladder emptying after urination. She has noticed skin irritation and itching, which she believes may be related to high blood sugar levels or constant use of pads. She took an kvbi-cnt-cbdmyzt yeast infection treatment, which seemed to help slightly. She has not checked the area recently and is unsure if the symptoms are still present. She occasionally notices unusual substances in her urine, such as sugar or blood. Diet: Adjusted diet to manage blood sugar levels Sleep: Disrupted sleep due to discomfort, sometimes takes Tylenol PM PAST SURGICAL HISTORY: - Herniated disk surgery with placement of a titanium plate ?Quick Review Review Full History Edit History Meds - prednisoLONE acetate (Pred-Forte) 1 % ophthalmic suspension Xdemvy 0.25 % solution amoxicillin (Amoxil) 500 MG tablet atorvastatin (Lipitor) 10 MG tablet Blood Glucose Monitoring Suppl (Modern FeedTouch Verio Reflect) w/Device kit clotrimazole (Lotrimin) 1 % cream Cranberry 425 MG capsule Farxiga 10 MG fluocinonide (Lidex) 0.05 % cream fluticasone (Flonase) 50 MCG/ACT nasal spray furosemide (Lasix) 20 MG tablet GaviLyte-G 236 g solution ibuprofen 200 MG tablet P-Xchurhbjmklj-Jvekz-B12-B6 (Metanx) 3-90.314-2-35 MG capsule Lancets (PureForge Delica Plus [id number]) misc levothyroxine (Synthroid, Levoxyl) 100 MCG tablet lisinopril 2.5 MG tablet metFORMIN (Glucophage) 500 MG tablet Multiple Vitamins-Minerals (Womens Multi Vitamin & Mineral) tablet [email or web address] Verio test strip oxybutynin XL (Ditropan-XL) 10 MG 24 hr tablet Rybelsus 7 MG tablet --- PMH - Arthritis Witt palsy Carpal tunnel syndrome Cholecystitis 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 CKD (chronic kidney disease), stage III ([facility]-HCC) Colon polyps Decreased hearing of both ears Diabetes (HCC) Disease of thyroid gland DUB (dysfunctional uterine bleeding) ETD (Eustachian tube dysfunction), bilateral Frozen shoulder GERD (gastroesophageal reflux disease) Headache Headache, tension-type HTN (hypertension) Hyperlipidemia Hypothyroidism Intervertebral disc disorder with myelopathy, cervical region Nasal drainage 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 Avoid pulling in long tables of results. Comment on relevant results to support your medical decision making. BP 128/70 Pulse 93 Ht 5' 6.5 Wt 205 lb 12.8 oz SpO2 95% BMI 32.72 kg/m Physical Exam Physical Exam General Appearance: Normal. Vital signs: Within normal limits. HEENT: Within normal limits. Respiratory: Clear to auscultation bilaterally. Cardiovascular: regular rate and rhythm with no murmur. Extremities: no edema, palpable pulses. Skin: Warm and dry, no rash. Neurological: Normal. Psychiatric: Normal. Other observations: Tenderness noted in the neck. ?Quick Links Full Problem List Allergy Back Pain Cardiology CHF Chronic Pain Diabetes GI Hypertension Thyroid Assessment & Plan Chronic midline low back pain without sciatica Per Dr Pham. Nasal drainage Essential hypertension BP controlled. Stage 3a chronic kidney disease (CMS-HCC) Stable. Sees Dr Glez. Assessment & Plan 1. Back pain: - Reports ongoing back pain and has undergone physical therapy without significant improvement. - MRI of the lower back has been performed, and she is awaiting results. - Advised to continue managing symptoms with [id number] pain relief as needed and to avoid activities that exacerbate the pain. 2. Neck pain: - Reports neck pain with a history of a herniated disk and a broken screw in a previously placed titanium plate. - MRI of the cervical spine has been approved by insurance and is scheduled. - Advised to avoid activities that could strain the neck, such as riding roller coasters and off-road vehicles. 3. 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 - Currently using prescribed eye drops to manage the condition and is awaiting approval for additional procedures, including a stem cell replacement therapy called [id number]. 4. Diabetes mellitus: - Blood sugar levels have been fluctuating but are currently back within the normal range. - Advised to continue current medication regimen and dietary modifications to maintain stable blood sugar levels. 5. Bladder issues: - Reports frequent urination and has previously been on oxybutynin 10 mg, which she has run out of. - Advised to monitor symptoms and consider seeing urology again if symptoms persist or worsen. 6. Skin irritation: - Reports skin irritation and itching, which may be related to high blood sugar levels or constant use of pads. - Advised to discontinue any unnecessary medications and monitor for any changes. documented in this encounter [facility] 06-03-2025 Telephone encounter Note Patient informed and understands. [facility] 06-03-2025 Miscellaneous Notes Patient informed and understands. Patient called with concerns and questions. She is concerned about the screw. What should she be doing and not doing. She is going away this weekend. Please advise [phone] documented in this encounter [facility] 06-02-2025 Telephone encounter Note Patient called with concerns and questions. She is concerned about the screw. What should she be doing and not doing. She is going away this weekend. Please advise [phone] [facility] 06-02-2025 History of Present illness Narrative Images from the original note were not included. Orthopedic Office note: NAME: Vivian Duran : 1950 (EST PT) RT SHOULDER PAIN FOR A WHILE, HAS GOTTEN WORSE RECENTLY. XRAY TODAY EPIC 06/02/25 XRAY EPIC 10/16/23 SUBACROMIAL INJECTION 05/23/22 HX RT SHOULDER RCR 2012 DR HIGGINS. SHOULDER CONTINUES GETTING WORSE. PAIN ANTERIOR AND LATERAL SHOULDER, RADIATES DOWN TO WRIST. +TYL, NOT MUCH RELIEF. +HEAT. STATES PAIN GETS INTENSE TO WHERE SHE LOSES HER APPETITE. DENIES N/T. PAINFUL ROM. DENIES POPPING, GRINDING. WILL WAKE AT HS. HX HERNIATED DISC C-SPINE DR HIGGINS. GLEN: 02/2022, FELL OVER A SPEED BUMP AND LANDED ON HANDS AND KNEES. RT HANDED. Shoulder Musculoskeletal Exam Inspection Right Right shoulder inspection is normal. Ecchymosis: none Peripheral edema: none Atrophy: none Masses: none Prior incision: arthroscopic portals Incision: well-healed Palpation Right Right shoulder palpation is normal. Crepitus: no crepitus Increased warmth: none Tenderness: none Range of Motion Right Right shoulder range of motion is normal. Active ROM: normal and no pain. Passive ROM: normal and no pain. Active forward elevation: 160. Passive forward elevation: 170. Shoulder active abduction: 160. Passive abduction: 170. Active external rotation at side: 90. Passive external rotation at side: 90. Active internal rotation in abduction: 90. Passive internal rotation in abduction: 90. Internal rotation: L2. Strength Right External rotation: 5/5. External rotation is not affected by pain. Internal rotation: 5/5. Internal rotation is not affected by pain. Abduction: 5/5. Abduction is not affected by pain. Biceps: 5/5. Triceps: 5/5. Neurovascular Right Radial pulse: normal and 2+ Capillary refill: <3 sec Axillary nerve sensory distribution: normal Scapula Right Right shoulder scapula is normal. Position: normal Winging: none Special Tests Right Rotator Cuff Signs Neer's test: negative Borges test: negative Biceps/radha Signs Clicking/popping: positive Speed's test: negative AC Joint Signs Active horizontal adduction pain: negative Special tests additional comments: Reflexes 2 + symmetric biceps, triceps and brachial radialis, neg clonus, Equal twisting frame fixer strengthe, neg hoffmans sign. Wrist/ Flex is 5/5 bilateral. General Constitutional: appears stated age Labored breathing: no Neurological: alert and oriented x3 Orders Placed This Encounter Procedures XR shoulder 2+ views right Reason for exam:: pain XR cervical spine complete 4 to 5 views Scheduling Instructions: XRAY C-SPINE AP/LAT/FLEX/EXT/OBLI Reason for exam:: CERVICAL RADICULOPATHY MR cervical spine wo contrast Standing Status: Future Expected Date: 06/02/2025 Expiration Date: 06/02/2026 Scheduling Instructions: MRI CERVICAL SPINE WITHOUT CONTRAST SANDRA YOON; PLEASE CALL PT TO SCHEDULE Reason for exam:: CERVICAL RADICULOPATHY/FAILED HARDWARE (BROKEN SCREW) Procedures Results - Imaging: - X-ray of the shoulder: shows stable shoulder with prior anchor from cuff repair - Cervical spine x-ray: shows a broken screw ICD-10-CM 1. Acute pain of right shoulder M25.511 XR shoulder 2+ views right 2. Neck pain M54.2 XR cervical spine complete 4 to 5 views 3. Cervical radiculopathy M54.12 XR cervical spine complete 4 to 5 views MR cervical spine wo contrast F/U Dr. Pham s/p MRI and xray c spine to discuss need for possible: Neurosurgery referral- suspect broken screw. Abrupt onset right arm C6 radiculopathy/ c5 pain. Surgical and non surgical tx options discussed with conservative measures reviewed. Recommend ICE/ ELEVATION, continued activity modification in interim. Pt would consider surgical intervention to possibly improve symptoms. Assessment & Plan Right shoulder pain: Exam and history are concerning more for cervical radiculopathy. Pain runs from the neck over the shoulder and down into the hand in a C6 dermatome, involving mostly the thumb and index finger. The pain is constant but varies in intensity. No current paresthesias are reported. Shoulder movement is without difficulty or increased pain. Approximately 2 weeks ago, while laying on the bed, a pop was felt, initially thought to be in the mid upper thoracic area, followed by tingling in the arm and legs bilaterally. Chest symptoms have slightly improved, but arm symptoms persist. Today's X-ray notes a stable shoulder with a prior anchor from cuff repair; however, the neck shows a cervical fusion, and incidentally, a broken screw is found on the Scap Y. Motion and instability are concerning. A recent lumbar MRI was done due to leg pain concerns, but shoulder and upper arm symptoms are worse. No focal neuro deficit or muscle weakness is present today, but continued pain is noted. Reflexes are symmetric. Diagnostic plan: A cervical spine x-ray and MRI have been agreed upon for further evaluation given the severity of symptoms. Follow-up: The patient will keep follow-up as scheduled. Questions answered in laymen terms at the bedside. The diagnosis, home exercise plan and any ongoing restrictions/ recommendations reviewed. If unable to be reached in office, I recommend evaluation at nearest Emergency Room if any symptoms worsened or new symptoms develop for requiring urgent evaluation. Visit was preformed using [employer]-private pilot speech recognition. documented in this encounter [facility] 05-19-2025 History of Present illness Narrative Images from the original note were not included. HISTORY OF PRESENT ILLNESS: EST PT Vivian Duran is an 74 y.o. @ female. *LUMBAR SPINE* EST PT WITH LOW BACK PAIN- SYMPTOMS GRADUALLY INCREASING XRAY LUMBAR SPINE 05/19/25 PAIN LOW BACK- +RADIATING PAIN - PT STATES SYMPTOMS INCREASE MID DAY- TIRES EASILY- +BIOFREEZE *RT KNEE* EST PT; MOST RECENT VISIT WITH LAVELL RECHECK RT KNEE- HX RT TKA 07/23/18 (~6YRS 10MO)- S/P MDP 11/05/24- KNEE DOING WELL- TODAY IS MOSTLY BACK PAIN XRAY RT KNEE 11/05/24 EPIC XRAY B/L KNEE 05/21/24 EPIC XRAY B/L KNEE CHANGE 05/11/23 XRAY B/L KNEE 04/17/ EXA XRAY 04/13/2020 IN EXA MDP GIVEN 04/17/22 NO BONE SCAN PHYSICAL THERAPY S/P (R) TKA NO PAIN MANAGEMENT PT STATES SHE DOES HAVE BACK ISSUES WELL; DR CHINCHILLA HAS BEEN TX AND PLANS TO MAKE ANOTHER APPT GLEN: PT HAS BEEN IN PT FOR LUMBAR SPINE NOMS PAPITO; WONDERING IF SOME OF THE EXERCISES ARE FLARING THINGS UP ON RT KNEE BUT NO SPECIFIC INJURY ALLERGIES: Allergies Allergen Reactions Wound Dressing Adhesive Rash HOME MEDICATIONS: Current Outpatient Medications Medication Instructions amoxicillin (Amoxil) 500 MG tablet 4 tabs PO once 30-60 mins before procedure with food atorvastatin (LIPITOR) 10 mg, Oral, Daily Blood Glucose Monitoring Suppl ([email or web address] Verio Reflect) w/Device kit clotrimazole (Lotrimin) 1 % cream Topical, 2 times daily Cranberry 425 MG capsule Farxiga 10 mg, Oral, Daily fluocinonide (Lidex) 0.05 % cream Apply to rash up to twice a day when flared, do not use one the face, groin, or underarms, 30 day supply fluticasone (Flonase) 50 MCG/ACT nasal spray USE 1 SPRAY IN BOTH NOSTRILS ONCE DAILY furosemide (LASIX) 20 mg, Oral, Daily GaviLyte-G 236 g solution Take 4,000 mL by mouth once for 1 dose. Take per written instructions given at office for colonoscopy preparation ibuprofen 200 mg, Every 6 hours PRN P-Jgfdhcpadbbu-Ryzvt-B12-B6 (Metanx) 3-90.314-2-35 MG capsule TAKE 1 CAPSULE BY MOUTH TWO TIMES A DAY DIRECTED Lancets (OneTouch Delica Plus [id number]) [facility] [place] 1 Lancet, Topical, Daily levothyroxine (SYNTHROID, LEVOXYL) 100 mcg, Oral, Daily lisinopril 2.5 mg, Oral, Daily metFORMIN (Glucophage) 500 MG tablet TAKE 1 TABLET EVERY MORNINGAND 1 TABLET EVERY EVENING WITH MEALS Multiple Vitamins-Minerals (Womens Multi Vitamin & Mineral) tablet OneTouch Verio test strip FINGERSTICK DAILY oxybutynin XL (Ditropan-XL) 10 MG 24 hr tablet Take 1 tablet by mouth once a day semaglutide (RYBELSUS) 7 mg, Oral, Daily before breakfast PHYSICAL EXAM: Spine Musculoskeletal Exam Gait Right Heel walk: able to heel walk Toe walk: able to toe walk Left Heel walk: able to heel walk Toe walk: able to toe walk Gait additional comments: Bilateral lower extremities neurovascularly intact without a sensory or motor deficits noted. Deep tendon reflexes were present and equal bilaterally Dorsalis pedis and posterior tibial pulses were present and equal bilaterally Sensation to light touch was intact to all dermatomes bilaterally to lower extremities Compartments were soft to bilateral lower extremities. Strength major muscle groups: Quadriceps 5/5 bilaterally, hamstrings 5/5 bilaterally, foot dorsiflexion 5/5 bilaterally, foot plantar flexion 5/5 bilaterally, foot eversion 5/5 bilaterally, foot inversion 5/5 bilaterally. Toe extension 5/5 bilaterally, toe flexion 5/5 bilaterally. Straight leg raise: Right negative, left negative. Pain noted with deep palpation over lower paravertebral lumbar spine. Vitals: There is no height or weight on file to calculate BMI. Tobacco Use: Low Risk (05/25/2025) Received from [employer] Patient History Smoking Tobacco Use: Never Smokeless Tobacco Use: Never Passive Exposure: Not on file Alcohol Use: Not At Risk (03/11/2025) AUDIT-C Frequency of Alcohol Consumption: Never Average Number of Drinks: Patient does not drink Frequency of Binge Drinking: Never IMAGING: XR lumbar spine 2 or 3 views Imaging Result: AP and lateral of lumbar spine showed markedly arthritis globally to the lumbar spine with ankylosing noted to both superior and inferior endplates globally. There is decreased disc space noted globally to the lumbar spine. Anterior and posterior columns appeared to be symmetric posterior elements appear to be anatomic. There was no acute Bony process including but not limited to fracture and/or dislocation. Impression: Moderate degenerative changes lumbar spine globally no acute bony process. Procedures Orders Placed This Encounter Procedures XR lumbar spine 2 or 3 views Reason for exam:: PAIN MR lumbar spine wo contrast Standing Status: Future Number of Occurrences: 1 Expected Date: 05/19/2025 Expiration Date: 05/19/2026 Scheduling Instructions: MRI LUMBAR SPINE WITHOUT CONTRAST SANDRA YOON Reason for exam:: LUMBAR RADICULOPATHY ASSESSMENT: ICD-10-CM 1. Lumbar pain M54.50 XR lumbar spine 2 or 3 views MR lumbar spine wo contrast PLAN: Patient states that her knees my knees feel fine and have no problem with my knees. My pain is from my mid low back down in the modified buttock and in the my posterior thighs equally on both legs. We have discussed her symptoms, physical exam, and lumbar spine x-rays today. We have recommended an MRI of her lumbar spine for spinal stenosis we will see her back in 1 month to go over the results. Questions answered in laymen terms at the bedside. The diagnosis, home exercise plan and any ongoing restrictions/ recommendations reviewed. If unable to be reached in office, I recommend evaluation at nearest Emergency Room if any symptoms worsened or new symptoms develop for requiring urgent evaluation. documented in this encounter [facility] 04-05-2025 Telephone encounter Note Refills sent. [facility] 04-05-2025 Miscellaneous Notes Refills sent. documented in this encounter [facility] 03-17-2025 History of Present illness Narrative Associated Problem(s): Type 2 diabetes mellitus with diabetic chronic kidney disease ([facility]) Orders: POCT Glycated hemoglobin, total Subjective Patient ID: Vivian Duran is a 74 y.o. female who presents for Diabetes. HPI History of Present Illness History of Present Illness The patient presents for evaluation of diabetes mellitus, dry mouth, and fatigue. She has been experiencing frequent urination, which she initially attributed to her Lasix medication. This symptom was present both before and after her procedure. Additionally, she reports a persistent dry mouth, which leads to coughing. The cough is alleviated by drinking fluids or using Biotene. She has been using Therabreath for her dry mouth, which provides temporary relief. She is considering discontinuing her Ditropan to see if it alleviates her dry mouth symptoms. She has been feeling fatigued for an extended period, which she initially thought was due to sleep apnea. However, she now suspects it may be stress-related. She recalls an incident a few weeks ago when she was caring for her granddaughters for a week, after which she felt extremely exhausted. Her A1c level has increased slightly to 7.1 from 6.7. She is currently on Farxiga, metformin, and Januvia for her diabetes management. She is considering whether to continue with her current medications or to try a new one. She had a polyp taken from the colon, which was benign. She had yeast in the esophagus and was given Diflucan for it. She stopped her other medications at the same time because she wanted to be sure. She has been urinating frequently, at least half the day, but during this time she was going all day. She thought it was due to the Lasix. She gets a dry throat and ends up coughing, but as soon as she drinks something or uses Biotene, it helps soothe it and she does not cough anymore. FAMILY HISTORY Her father had bladder cancer. Objective BP 122/80 Pulse 78 Resp 18 Ht 5' 6.5 Wt 206 lb SpO2 98% BMI 32.75 kg/m Physical Exam Vitals and nursing note reviewed. Constitutional: General: She is not in acute distress. Appearance: Normal appearance. HENT: Head: Normocephalic and atraumatic. Mouth/Throat: Mouth: Mucous membranes are moist. Pharynx: Oropharynx is clear. Cardiovascular: Rate and Rhythm: Normal rate and regular rhythm. Pulses: Normal pulses. Heart sounds: Normal heart sounds. Pulmonary: Effort: Pulmonary effort is normal. Breath sounds: Normal breath sounds. Musculoskeletal: Cervical back: Normal range of motion and neck supple. Skin: General: Skin is warm and dry. Neurological: General: No focal deficit present. Mental Status: She is alert. Psychiatric: Mood and Affect: Mood normal. Physical Exam Assessment & Plan 1. Diabetes mellitus. - A1c level has increased slightly to 7.1 from 6.7. - Currently on Farxiga, metformin, and Januvia. - Potential benefits of transitioning to a GLP-1 agonist were discussed. - Prescription for Rybelsus 7 mg will be sent to pharmacy, and the process of prior authorization will be initiated. In the meantime, she will complete her current supply of Januvia. If the insurance does not approve the next dose, the plan will be revised, and she will revert to Januvia. 2. Xerostomia. - Dry mouth symptoms are likely a side effect of Ditropan (oxybutynin). - Advised to consider discontinuing Ditropan for a few weeks to assess if it alleviates her dry mouth symptoms. - Alternatively, she may consider reducing the dosage. 3. Fatigue. - Reports feeling tired for quite a while, which may be related to stress or other underlying conditions. - No specific issues were identified in previous blood work. - Advised to monitor her symptoms and consider discussing them further with her healthcare provider if they persist. Follow-up - The patient will follow up in 3 months. Assessment & Plan Type 2 diabetes mellitus with stage 3a chronic kidney disease, without long-term current use of insulin ([facility]) ([facility]) Orders: POCT Glycated hemoglobin, total Xerostomia Assessment/Plan documented in this encounter [facility] 02-23-2025 History of Present illness Narrative Images from the original note were not included. Subjective Patient ID: Vivian Duran is a 74 y.o. female who presents for Toe Pain (Established pt presents today with pain BL hallux, left foot is worse. Ongoing for about a month. Pt states painful underneath nail. PCP: Dr. Renée HARO 12/16/24, A1C: 7.2, BS:). HPI Established patient returns to clinic with concern primarily of left great toe pain. She has some mild tenderness with the right great toe as well. Patient states it has been bothering her for about a month. She did get new shoes but she thinks that the pain started before she got the new shoes. Pain is described as aching in nature and occasionally sharp. Symptoms are worse when she is walking, standing. She also states that she gets throbbing sensations in the toe at night. She has not tried any treatment. Review of Systems Constitutional: Negative for activity change and appetite change. Respiratory: Negative for chest tightness and shortness of breath. Cardiovascular: Positive for leg swelling. Negative for chest pain. Musculoskeletal: Positive for arthralgias and gait problem. Skin: Negative for color change and wound. Neurological: Positive for numbness. Negative for weakness. Psychiatric/Behavioral: Negative for agitation and behavioral problems. Hematological: Does not bruise/bleed easily. Endocrine: Negative for cold intolerance and heat intolerance. Allergic/Immunologic: Negative for immunocompromised state. 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 CKD (chronic kidney disease), stage III (HCC) (CMS/HCC) Colon polyps 2013 Decreased hearing of both ears Diabetes (CMS/HCC) Disease of thyroid gland (CMS/HCC) DUB (dysfunctional uterine bleeding) ETD (Eustachian tube dysfunction), bilateral Frozen shoulder GERD (gastroesophageal reflux disease) Headache Headache, tension-type of and on HTN (hypertension) (CMS/HCC) Hyperlipidemia (CMS/HCC) Hypothyroidism (CMS/HCC) Intervertebral disc disorder with myelopathy, cervical region 04/05/2009 Nasal drainage Neuropathy in diabetes (CMS/HCC) past 2 to 3 yrs Obesity Personal history of other medical treatment herniated disc Pressure sensation in both ears Rotator cuff syndrome Rotator cuff tear, right Sleep apnea Tear of meniscus of knee Trigger finger Urinary tract infection Medications Current Outpatient Medications: amoxicillin (Amoxil) 500 MG tablet, 4 tabs PO once 30-60 mins before procedure with food, Disp: 4 tablet, Rfl: 3 atorvastatin (Lipitor) 10 MG tablet, Take 1 tablet (10 mg) by mouth Daily, Disp: 100 tablet, Rfl: 0 Blood Glucose Monitoring Suppl (OneTouch Verio Reflect) w/Device kit, , Disp: , Rfl: clotrimazole (Lotrimin) 1 % cream, Apply topically 2 (two) times a day, Disp: 30 g, Rfl: 0 Cranberry 425 MG capsule, , Disp: , Rfl: dapagliflozin (Farxiga) 10 MG, Take 1 tablet (10 mg) by mouth Daily, Disp: 90 tablet, Rfl: 1 fluocinonide (Lidex) 0.05 % cream, Apply to rash up to twice a day when flared, do not use one the face, groin, or underarms, 30 day supply, Disp: 30 g, Rfl: 11 fluticasone (Flonase) 50 MCG/ACT nasal spray, USE 1 SPRAY IN BOTH NOSTRILS ONCE DAILY, Disp: 32 g, Rfl: 1 furosemide (Lasix) 20 MG tablet, Take 1 tablet (20 mg) by mouth Daily, Disp: 100 tablet, Rfl: 1 glucose blood (Modern FeedTouch Verio) test strip, FINGERSTICK DAILY., Disp: 100 strip, Rfl: 1 Januvia 50 MG tablet, TAKE 1 TABLET DAILY, Disp: 90 tablet, Rfl: 1 W-Ccfkartafbru-Moped-B12-B6 (Metanx) 3-90.314-2-35 MG capsule, TAKE 1 CAPSULE BY MOUTH TWO TIMES A DAY DIRECTED, Disp: 180 capsule, Rfl: 3 Lancets (Modern FeedTouch Delica Plus [id number]) misc, Apply 1 Lancet topically Daily, Disp: 100 each, Rfl: 3 levothyroxine (Synthroid) 100 MCG tablet, Take 1 tablet (100 mcg) by mouth Daily, Disp: 100 tablet, Rfl: 1 lisinopril 2.5 MG tablet, Take 1 tablet (2.5 mg) by mouth Daily, Disp: 100 tablet, Rfl: 1 metFORMIN (Glucophage) 500 MG tablet, TAKE 1 TABLET EVERY MORNINGAND 1 TABLET EVERY EVENING WITH MEALS, Disp: 180 tablet, Rfl: 1 Multiple Vitamins-Minerals (Womens Multi Vitamin & Mineral) tablet, , Disp: , Rfl: oxybutynin XL (Ditropan-XL) 15 MG 24 hr tablet, Take 1 tablet by mouth once a day, Disp: 90 tablet, Rfl: 3 Allergies Wound dressing adhesive Past Surgical History Past Surgical History: Procedure Laterality Date ABDOMINAL SURGERY ANTERIOR CERVICAL DISCECTOMY W/ FUSION CARPAL TUNNEL RELEASE Right CARPAL TUNNEL RELEASE Left 06/05/2017 CARPAL TUNNEL RELEASE Right 07/23/2018 CATARACT EXTRACTION 11/2019 CAUDAL INJECTION 2009 3 CHOLECYSTECTOMY COLONOSCOPY 2009 COLONOSCOPY 2003 neg COLONOSCOPY 02/19/2025 COLONOSCOPY W/ POLYPECTOMY 2013 COLONOSCOPY W/ POLYPECTOMY 07/2020 CT ANGIOGRAM HEART CORONARY 09/19/2022 CT ANGIOGRAM HEART CORONARY 09/19/2022 D&C FIRST TRIMESTER / TX INCOMPLETE / MISSED / SEPTIC / INDUCED 1989 x2 ESOPHAGOGASTRODUODENOSCOPY 02/19/2025 ESOPHAGOSCOPY / EGD 2013 ESOPHAGOSCOPY / EGD 07/2020 with bx JOINT REPLACEMENT KNEE SURGERY Left 2005 arhtrocsopy KNEE SURGERY Left 2001 scope KNEE SURGERY Left 06/02/2014 STEF LASER LAPAROSCOPY 1994 x2 OTHER SURGICAL HISTORY 2012 ACD/ACF OTHER SURGICAL HISTORY 2005 TVT-O ROTATOR CUFF REPAIR Right 2012 ROTATOR CUFF REPAIR Left 2011 SPINE SURGERY TOTAL ABDOMINAL HYSTERECTOMY W/ BILATERAL SALPINGOOPHORECTOMY 1995 TOTAL KNEE ARTHROPLASTY Left 01/27/2014 TRIGGER FINGER RELEASE Right 2010 VAGINAL DELIVERY x2 Family History Family History Problem Relation Name Age of Onset Diabetes Mother Gloria Long Hypertension Mother Gloria Long Heart disease Mother Gloria Long Colon cancer Mother Gloria Long Cancer Mother Gloria Long Hearing loss Mother Gloria Long Kidney disease Mother Gloria Long Miscarriages / Stillbirths Mother Gloria Long Hypertension Father Cheyenne Long Diabetes Father Cheyenne Long Alzheimer's disease Father Cheyenne Long Other (bladder cancer) Father Cheyenne Long Hearing loss Father Cheyenne Long Kidney disease Father Cheyenne Long Cancer Brother Rush Long COPD Brother Diogo Long Other (hypoexmic resp failure) Brother Diogo Long Emphysema Brother Diogo Long Cancer Mother's Sister Srini Harden Objective Physical Exam Constitutional: General: She is not in acute distress. Appearance: She is obese. Cardiovascular: Comments: DP pulse: 1/4 PT pulse: 1/4 Skin temperature is warm to cool Edema: Mild nonpitting bilaterally Pulmonary: Effort: Pulmonary effort is normal. No respiratory distress. Musculoskeletal: Cervical back: Neck supple. No rigidity. Comments: Pedal deformities: Pes planovalgus deformity with hallux valgus deformity worse on the right lower extremity with lateral deviation of the hallux. Slight medial deviation of the 2nd toe with slight elevation and plantar flexion contracture at the PIPJ joint. I can not recreate any tenderness to palpation of bilateral hallux. She did state that she felt a twinge of pain on the left hallux when I pushed from dorsal to plantar on the nail. Skin: Capillary Refill: Capillary refill takes less than 2 seconds. Comments: Two toenails exhibit clinical mycosis with thickened appearance, yellow/brown discoloration, crumbly texture, subungual debris. All 10 toenail slightly elongated. Hyperkeratotic tissue: Left foot: None Right foot: None Skin is diffusely thin Hair growth: Absent Neurological: Mental Status: She is alert. Comments: Protective sensation intact at 7/10 pedal sites Vibratory sensation diminished at the 1st MTP bilaterally. Psychiatric: Mood and Affect: Mood normal. Behavior: Behavior normal. XR foot 3+ views left Imaging Result: AP, medial oblique, lateral views are weight-bearing. Decreased calcaneal inclination, increased talar declination. Enthesophyte at the insertion of the plantar fascia. Increased IM 1-2 angle. Lateral deviation of the hallux, lateral subluxation of the sesamoids. No fractures or dislocations. Assessment/Plan ICD-10-CM 1. Pain in both feet M79.671 XR foot 3+ views left M79.672 2. Diabetic polyneuropathy associated with type 2 diabetes mellitus (CMS/[facility]) E11.42 3. Onychomycosis B35.1 4. Onychodystrophy L60.3 Patient examined and evaluated. Three radiographs of the left foot taken in office today as this was her most symptomatic side and I can not recreate any tenderness to palpation on the right side. Radiographs appear normal. I suspect that her symptoms are consistent with some sort of microtrauma in her shoes. Recommend adjusting her shoe size so that is a half size larger. She states that the most recent pair of shoes that she purchase they did not have a women's size and so she had to go to a men's shoe. This could have irritated some of her symptomatology. Recommend taking ibuprofen [id number] or Tylenol [id number]-rhs-[id number] as necessary. Follow up as needed. If symptoms worsen we could consider an MRI. 10 toenails were debrided in length and thickness today utilizing a nail nipper and electric bur corn grinder without incident. I have discussed the importance of daily foot examinations and tight blood sugar control. We will follow up as needed per patient request. This note was created with the assistance of a speech recognition program. While intending to generate a timely document that accurately reflects the content of the visit, no guarantee can be provided that every grammatical or spelling mistake has been or will be identified or corrected. Thank you for your understanding. Brian Bryant DPM documented in this encounter [facility] 02-13-2025 Instructions Formatting of th is note might be different from the original. Your surgery/procedure is scheduled at [facility] on 02/19/2025 at 1345 Arrival Time 1145 [facility] Address: [address] [place] [address] in [address] located on [facility]. Report to the Entrance B. Check in at the information desk the surgery. The waiting room located on the second floor. If you have any questions prior to surgery, please call Pre-Admission Clinic at [phone] between 7:30 am and 4:30 pm Sunday through Sunday. If you have questions the morning of surgery, please call the Pre-op Department at [phone]. Notify your SURGEON if you develop any illness such as a cold, cough, fever, sore throat, vomiting or are hospitalized between now and your surgery. Medication Instructions (Do not stop your medications without consulting the prescribing physician). Take the following medications the morning of surgery with a sip of water: Lisinopril, Levothyroxine Diabetic or Weight loss medications: HOLD Farxiga LAST DOSE 02/15/2025 Take inhalers as prescribed the morning of surgery. Due to the risk associated with these medications. If these medications are not held per instruction below, your surgery is at an increased risk for cancellation. SGLT2 Medications- Hold 3 days prior to surgery: Jardiance, Empagliflozin, Farxiga, Dapagliflozin, Invokana, Canagliflozin, Trijardy, Synjardy GLP-1 Medications (Injection or Pill)- If taken daily hold day of surgery. If taken weekly, hold 1 week prior to surgery: Adlyxin, Byetta, Bydureon, Ozempic, Rybelsus,Trulicity, Victoza, Wegovy, Lixisenatide, Exenatide, Semaglutide, Dulaglutide, Liraglutide GIP/GLP-1(Injection or Pill)- If taken daily hold day of surgery. If taken weekly, hold 1 week prior to surgery: Angelique . Blood thinners: Please contact your prescribing physician regarding a stop/hold date for these medications. Medications such as Coumadin, Heparin, Aspirin, Plavix, Eliquis, Pradaxa Diabetics: If you take insulin, contact your prescribing doctor for instructions on how to manage this the night before and the morning of surgery. Non-steriodal Anti-Inflammatory Drugs (NSAIDS)- Hold 3 days prior to surgery unless otherwise directed by your surgeon. Vitamins/Herbal Products: You may continue to take your prescribed vitamins such as potassium, iron, vitamin B, vitamin C, or multivitamin unless specifically instructed by your surgeon to hold. STOP taking all herbal products/teas one week prior to your surgery. Marijuana: Stop marijuana 72 hours prior to surgery, stop CBD oil 48 hours prior to surgery. If you have been given bowel prep instructions by your surgeon, please call the surgeon's office with any questions about these instructions. What do I do the day of Surgery? Follow bowel prep If applicable, shower again with CHG soap the morning of your surgery. In order to help prevent infection post-operatively, you may be asked to use a CHG mouthwash when you arrive to the Pre-op area. Your nurse will provide instruction the morning of. What do I need to do to prepare for surgery? If you will be going home the same day as your surgery, arrange for an adult over [address] Riding in a bus or taxi by yourself is not permitted. You should not smoke or drink alcohol 24 hours before your surgery. Alcohol thins the blood and may cause bleeding problems during surgery. Smoking increases the risk of breathing problems after surgery. Do not use lotions, creams, powders, perfume, make up, cologne or after-shaves day of surgery. Remove ALL jewelry including wedding rings, body piercings (including dermal piercing's, hair extensions that contain metal, nail prydeinig, make-up, and contact lens. You may brush your teeth the morning of surgery, but do not swallow the water. Wear your dentures and partial plates to the hospital (no adhesive). Shower the night the before. If applicable, use the CHG (chlorhexidine gluconate) soap or wipes. Place clean linens on your bed after showering. Do not allow pets to sleep in your bed What should I bring to the hospital? Eyeglass or contact lens case If you will be spending the night, please bring personal care items and leave them in the car until you are taken to your room after surgery. Leave ALL valuables at home. If any of these instructions conflict with those you received from the surgeon, please seek clarification from your surgeon's office. DEEP BREATHING EXERCISES This exercise helps promote good air exchange and helps to prevent pneumonia after surgery. Breathe in slowly and deeply through the nose. Hold your breath for a few seconds and then exhale slowly through the mouth. Repeat this three times and then cough.Coughing helps to clear your lungs. If you have had a surgery with an incision into your abdomen or chest, press gently against your incision with a pillow or a folded blanket when you cough. Please be aware - it may not be correia to cough following some types of surgeries involving the eyes, ears, sinuses and throat. Always follow your doctor's instructions. LEG EXERCISE These exercises help promote good circulation and help to prevent blood clots after surgery. Point your toes to the ceiling and then point them to the wall. Do this slowly about 15-20 times. You may also move your feet in circles. Do the exercise that is most comfortable for you. If you have had surgery involving your shoulder or arm, we recommend you move your fingers. PRACTICING We ask that you begin practicing these exercises before your surgery. After surgery try to do both exercises at least every 2 hours during the day and early evening. Surgical Site Infection Prevention What is a Surgical Site Infection (SSI)? Infection can happen to the area of the body where surgery is done. This is called a surgical site infection (SSI). A SSI does not happen very often. What are some of the things that hospitals are doing to prevent SSIs? Soap and water or alcohol hand rub are used before and after caring for each patient. Special soap is used to clean surgery workers hands and arms just before the surgery. Masks, gowns, gloves and hair covers are worn during the surgery to keep the area clean. Hair in the surgery area may be removed with clippers (not razors). A special soap that kills germs is used to clean the skin at the surgery site. Antibiotics may be given before the surgery starts. What can you do to prevent SSIs? Before surgery: You may be asked to shower or bathe with a special soap that kills germs the night before and the day of surgery. Use the soap as you were told. Place clean sheets on your bed the night before surgery and do not allow your pets in your bed. If you smoke or vape, stop or cut down. This creates a stress response in your body that increases inflammation, constricts blood vessels and deprives your tissues of oxygen. After surgery, this stress response disrupts the travel of oxygen, nutrients, and blood to your surgical site, interfering with the wound healing process. It also decreases the ability of your cells to fight infection. Ask your doctor about ways to quit. If you have high blood sugars or diabetes please talk with your doctor about having healthy blood sugar levels to promote healing. Do not shave near where you will have surgery. Shaving can irritate the skin and make it easier to get and infection. After surgery: Be sure that the doctors and nurses clean their hands before and after touching you. Be sure your family and friends clean their hands before and after visiting you. Do not be afraid to remind them. Always wash your hands before touching your incisional area. * Care for your wound at home as told by your doctor or nurse * Call your doctor right away if you have fever, redness, increased pain, or drainage at the surgery site. Can SSIs be treated? Antibiotics are used to treat SSI. Some patients may need another surgery to treat the infection. The doctor will discuss treatment options with you. Further questions? Contact the doctor, nurse or the Infection Prevention and Control department if you have any questions. PATIENT RIGHTS AND RESPONSIBILITIES As a patient at [facility], you have the right to: Receive medical care and be informed of who is taking care of you Be treated with dignity and respect Have a family member/loan representative of choice and your physician notified of your admission Receive information and actively participate in decisions about your care and treatment Refuse care, treatment and services Decide who may provide your support and speak for you Access rastafarian and spiritual services Participate in ethical issues and questions about your care Receive private and confidential care Have appropriate assessment and management of your pain Know guest visitation restrictions or limitations Have an advance directive Access protective services Consent or refuse to participate in research studies or production or recordings, films or other images Have resolution of your complaints Receive information of hospital charges and payment methods Patient/patient loan representative responsibilities are to: Provide information about health status to facilitate care, treatment and services Follow the treatment, plan, keep appointments and speak up when you do not understand the plan Respect the rights of other patients and healthcare personnel Follow organizational rules and regulations that support quality care and a safe environment Fulfill financial obligations as promptly as possible PATIENT RIGHTS AND RESPONSIBILITIES As a patient at [facility], you have the right to: Receive medical care and be informed of who is taking care of you Be treated with dignity and respect Have a family member/loan representative of choice and your physician notified of your admission Receive information and actively participate in decisions about your care and treatment Refuse care, treatment and services Decide who may provide your support and speak for you Access rastafarian and spiritual services Participate in ethical issues and questions about your care Receive private and confidential care Have appropriate assessment and management of your pain Know guest visitation restrictions or limitations Have an advance directive Access protective services Consent or refuse to participate in research studies or production or recordings, films or other images Have resolution of your complaints Receive information of hospital charges and payment methods Patient/patient loan representative responsibilities are to: Provide information about health status to facilitate care, treatment and services Follow the treatment, plan, keep appointments and speak up when you do not understand the plan Respect the rights of other patients and healthcare personnel Follow organizational rules and regulations that support quality care and a safe environment Fulfill financial obligations as promptly as possible Surgical Site Infection Prevention What is a Surgical Site Infection (SSI)? Infection can happen to the area of the body where surgery is done. This is called a surgical site infection (SSI). A SSI does not happen very often, but it is important for the hospital and you to do everything possible to avoid a SSI. What are some of the things that hospitals are doing to prevent SSIs? Soap and water or alcohol hand rub are used before and after caring for each patient. Special soap is used to clean surgery workers hands and arms just before the surgery. Masks, gowns, gloves and hair covers are worn during the surgery to keep the area clean. Hair in the surgery area may be removed with clippers (not razors). A special soap that kills germs is used to clean the skin at the surgery site. Antibiotics may be given before the surgery starts. What can you do to prevent SSIs? Before surgery: You may be asked to shower or bathe with a special soap that kills germs the night before and the day of surgery. Use the soap as you were told. Place clean sheets on your bed the night before surgery and do not allow your pets in your bed. If you smoke or vape, stop or cut down. This creates a stress response in your body that increases inflammation, constricts blood vessels and deprives your tissues of oxygen. After surgery, this stress response disrupts the travel of oxygen, nutrients, and blood to your surgical site, interfering with the wound healing process. It also decreases the ability of your cells to fight infection. Ask your doctor about ways to quit. If you have high blood sugars or diabetes please talk with your doctor about having healthy blood sugar levels to promote healing. Do not shave near where you will have surgery. Shaving can irritate the skin and make it easier to get and infection. After surgery: Be sure that the doctors and nurses clean their hands before and after touching you. Be sure your family and friends clean their hands before and after visiting you. Do not be afraid to remind them. Always wash your hands before touching your incisional area. * Care for your wound at home as told by your doctor or nurse * Call your doctor right away if you have fever, redness, increased pain, or drainage at the surgery site. Can SSIs be treated? Antibiotics are used to treat SSI. Some patients may need another surgery to treat the infection. The doctor will discuss treatment options with you. Further questions? Contact the doctor, nurse or the Infection Prevention and Control department if you have any questions. [facility] 02-13-2025 Miscellaneous Notes Your surgery/procedure is scheduled at [facility] on 02/19/2025 at 1345 Arrival Time 1145 [facility] Address: [address] [place] [address], [place] [address] [address] located on [facility]. Report to the Entrance B. Check in at the information desk the surgery. The waiting room located on the second floor. If you have any questions prior to surgery, please call Pre-Admission Clinic at [phone] between 7:30 am and 4:30 pm Sunday through Sunday. If you have questions the morning of surgery, please call the Pre-op Department at [phone]. Notify your SURGEON if you develop any illness such as a cold, cough, fever, sore throat, vomiting or are hospitalized between now and your surgery. Medication Instructions (Do not stop your medications without consulting the prescribing physician). Take the following medications the morning of surgery with a sip of water: Lisinopril, Levothyroxine Diabetic or Weight loss medications: HOLD Farxiga LAST DOSE 02/15/2025 Take inhalers as prescribed the morning of surgery. Due to the risk associated with these medications. If these medications are not held per instruction below, your surgery is at an increased risk for cancellation. SGLT2 Medications- Hold 3 days prior to surgery: Jardiance, Empagliflozin, Farxiga, Dapagliflozin, Invokana, Canagliflozin, Trijardy, Synjardy GLP-1 Medications (Injection or Pill)- If taken daily hold day of surgery. If taken weekly, hold 1 week prior to surgery: Adlyxin, Byetta, Bydureon, Ozempic, Rybelsus,Trulicity, Victoza, Wegovy, Lixisenatide, Exenatide, Semaglutide, Dulaglutide, Liraglutide GIP/GLP-1(Injection or Pill)- If taken daily hold day of surgery. If taken weekly, hold 1 week prior to surgery: Mounjaro . Blood thinners: Please contact your prescribing physician regarding a stop/hold date for these medications. Medications such as Coumadin, Heparin, Aspirin, Plavix, Eliquis, Pradaxa Diabetics: If you take insulin, contact your prescribing doctor for instructions on how to manage this the night before and the morning of surgery. Non-steriodal Anti-Inflammatory Drugs (NSAIDS)- Hold 3 days prior to surgery unless otherwise directed by your surgeon. Vitamins/Herbal Products: You may continue to take your prescribed vitamins such as potassium, iron, vitamin B, vitamin C, or multivitamin unless specifically instructed by your surgeon to hold. STOP taking all herbal products/teas one week prior to your surgery. Marijuana: Stop marijuana 72 hours prior to surgery, stop CBD oil 48 hours prior to surgery. If you have been given bowel prep instructions by your surgeon, please call the surgeon's office with any questions about these instructions. What do I do the day of Surgery? Follow bowel prep If applicable, shower again with CHG soap the morning of your surgery. In order to help prevent infection post-operatively, you may be asked to use a CHG mouthwash when you arrive to the Pre-op area. Your nurse will provide instruction the morning of. What do I need to do to prepare for surgery? If you will be going home the same day as your surgery, arrange for an adult over [address] Riding in a bus or taxi by yourself is not permitted. You should not smoke or drink alcohol 24 hours before your surgery. Alcohol thins the blood and may cause bleeding problems during surgery. Smoking increases the risk of breathing problems after surgery. Do not use lotions, creams, powders, perfume, make up, cologne or after-shaves day of surgery. Remove ALL jewelry including wedding rings, body piercings (including dermal piercing's, hair extensions that contain metal, nail prydeinig, make-up, and contact lens. You may brush your teeth the morning of surgery, but do not swallow the water. Wear your dentures and partial plates to the hospital (no adhesive). Shower the night the before. If applicable, use the CHG (chlorhexidine gluconate) soap or wipes. Place clean linens on your bed after showering. Do not allow pets to sleep in your bed What should I bring to the hospital? Eyeglass or contact lens case If you will be spending the night, please bring personal care items and leave them in the car until you are taken to your room after surgery. Leave ALL valuables at home. If any of these instructions conflict with those you received from the surgeon, please seek clarification from your surgeon's office. DEEP BREATHING EXERCISES This exercise helps promote good air exchange and helps to prevent pneumonia after surgery. Breathe in slowly and deeply through the nose. Hold your breath for a few seconds and then exhale slowly through the mouth. Repeat this three times and then cough.Coughing helps to clear your lungs. If you have had a surgery with an incision into your abdomen or chest, press gently against your incision with a pillow or a folded blanket when you cough. Please be aware - it may not be correia to cough following some types of surgeries involving the eyes, ears, sinuses and throat. Always follow your doctor's instructions. LEG EXERCISE These exercises help promote good circulation and help to prevent blood clots after surgery. Point your toes to the ceiling and then point them to the wall. Do this slowly about 15-20 times. You may also move your feet in circles. Do the exercise that is most comfortable for you. If you have had surgery involving your shoulder or arm, we recommend you move your fingers. PRACTICING We ask that you begin practicing these exercises before your surgery. After surgery try to do both exercises at least every 2 hours during the day and early evening. Surgical Site Infection Prevention What is a Surgical Site Infection (SSI)? Infection can happen to the area of the body where surgery is done. This is called a surgical site infection (SSI). A SSI does not happen very often. What are some of the things that hospitals are doing to prevent SSIs? Soap and water or alcohol hand rub are used before and after caring for each patient. Special soap is used to clean surgery workers hands and arms just before the surgery. Masks, gowns, gloves and hair covers are worn during the surgery to keep the area clean. Hair in the surgery area may be removed with clippers (not razors). A special soap that kills germs is used to clean the skin at the surgery site. Antibiotics may be given before the surgery starts. What can you do to prevent SSIs? Before surgery: You may be asked to shower or bathe with a special soap that kills germs the night before and the day of surgery. Use the soap as you were told. Place clean sheets on your bed the night before surgery and do not allow your pets in your bed. If you smoke or vape, stop or cut down. This creates a stress response in your body that increases inflammation, constricts blood vessels and deprives your tissues of oxygen. After surgery, this stress response disrupts the travel of oxygen, nutrients, and blood to your surgical site, interfering with the wound healing process. It also decreases the ability of your cells to fight infection. Ask your doctor about ways to quit. If you have high blood sugars or diabetes please talk with your doctor about having healthy blood sugar levels to promote healing. Do not shave near where you will have surgery. Shaving can irritate the skin and make it easier to get and infection. After surgery: Be sure that the doctors and nurses clean their hands before and after touching you. Be sure your family and friends clean their hands before and after visiting you. Do not be afraid to remind them. Always wash your hands before touching your incisional area. * Care for your wound at home as told by your doctor or nurse * Call your doctor right away if you have fever, redness, increased pain, or drainage at the surgery site. Can SSIs be treated? Antibiotics are used to treat SSI. Some patients may need another surgery to treat the infection. The doctor will discuss treatment options with you. Further questions? Contact the doctor, nurse or the Infection Prevention and Control department if you have any questions. PATIENT RIGHTS AND RESPONSIBILITIES As a patient at [facility], you have the right to: Receive medical care and be informed of who is taking care of you Be treated with dignity and respect Have a family member/loan representative of choice and your physician notified of your admission Receive information and actively participate in decisions about your care and treatment Refuse care, treatment and services Decide who may provide your support and speak for you Access rastafarian and spiritual services Participate in ethical issues and questions about your care Receive private and confidential care Have appropriate assessment and management of your pain Know guest visitation restrictions or limitations Have an advance directive Access protective services Consent or refuse to participate in research studies or production or recordings, films or other images Have resolution of your complaints Receive information of hospital charges and payment methods Patient/patient loan representative responsibilities are to: Provide information about health status to facilitate care, treatment and services Follow the treatment, plan, keep appointments and speak up when you do not understand the plan Respect the rights of other patients and healthcare personnel Follow organizational rules and regulations that support quality care and a safe environment Fulfill financial obligations as promptly as possible PATIENT RIGHTS AND RESPONSIBILITIES As a patient at [facility], you have the right to: Receive medical care and be informed of who is taking care of you Be treated with dignity and respect Have a family member/loan representative of choice and your physician notified of your admission Receive information and actively participate in decisions about your care and treatment Refuse care, treatment and services Decide who may provide your support and speak for you Access rastafarian and spiritual services Participate in ethical issues and questions about your care Receive private and confidential care Have appropriate assessment and management of your pain Know guest visitation restrictions or limitations Have an advance directive Access protective services Consent or refuse to participate in research studies or production or recordings, films or other images Have resolution of your complaints Receive information of hospital charges and payment methods Patient/patient loan representative responsibilities are to: Provide information about health status to facilitate care, treatment and services Follow the treatment, plan, keep appointments and speak up when you do not understand the plan Respect the rights of other patients and healthcare personnel Follow organizational rules and regulations that support quality care and a safe environment Fulfill financial obligations as promptly as possible Surgical Site Infection Prevention What is a Surgical Site Infection (SSI)? Infection can happen to the area of the body where surgery is done. This is called a surgical site infection (SSI). A SSI does not happen very often, but it is important for the hospital and you to do everything possible to avoid a SSI. What are some of the things that hospitals are doing to prevent SSIs? Soap and water or alcohol hand rub are used before and after caring for each patient. Special soap is used to clean surgery workers hands and arms just before the surgery. Masks, gowns, gloves and hair covers are worn during the surgery to keep the area clean. Hair in the surgery area may be removed with clippers (not razors). A special soap that kills germs is used to clean the skin at the surgery site. Antibiotics may be given before the surgery starts. What can you do to prevent SSIs? Before surgery: You may be asked to shower or bathe with a special soap that kills germs the night before and the day of surgery. Use the soap as you were told. Place clean sheets on your bed the night before surgery and do not allow your pets in your bed. If you smoke or vape, stop or cut down. This creates a stress response in your body that increases inflammation, constricts blood vessels and deprives your tissues of oxygen. After surgery, this stress response disrupts the travel of oxygen, nutrients, and blood to your surgical site, interfering with the wound healing process. It also decreases the ability of your cells to fight infection. Ask your doctor about ways to quit. If you have high blood sugars or diabetes please talk with your doctor about having healthy blood sugar levels to promote healing. Do not shave near where you will have surgery. Shaving can irritate the skin and make it easier to get and infection. After surgery: Be sure that the doctors and nurses clean their hands before and after touching you. Be sure your family and friends clean their hands before and after visiting you. Do not be afraid to remind them. Always wash your hands before touching your incisional area. * Care for your wound at home as told by your doctor or nurse * Call your doctor right away if you have fever, redness, increased pain, or drainage at the surgery site. Can SSIs be treated? Antibiotics are used to treat SSI. Some patients may need another surgery to treat the infection. The doctor will discuss treatment options with you. Further questions? Contact the doctor, nurse or the Infection Prevention and Control department if you have any questions. documented in this encounter [facility] 02-11-[address] Win is requesting the patient to stop medications prior to surgery (colonoscopy). They are being very cautious. Stopping day prior: (per cardiology) Lisinopril 2.5mg Furosemide 20mg They need to know if it is ok to stop the Farxiga, Metformin, and Januvia 3 days prior to surgery. Is that ok? [facility] 02-11-[address] Win is requesting the patient to stop medications prior to surgery (colonoscopy). They are being very cautious. Stopping day prior: (per cardiology) Lisinopril 2.5mg Furosemide 20mg They need to know if it is ok to stop the Farxiga, Metformin, and Januvia 3 days prior to surgery. Is that ok? Pt called asking if the meds that she was told to stop prior to her Colonoscopy- (Farxiga) Asking for a call back to let her know that's ok . [place] [phone] documented in this encounter [facility] 02-11-2025 Telephone encounter Note Pt called asking if the meds that she was told to stop prior to her Colonoscopy- (Farxiga) Asking for a call back to let her know that's ok . [place] -[phone] [facility] 01-21-2025 History of Present illness Narrative [facility] New Patient Visit - History & Physical HISTORY OF PRESENT ILLNESS: Vivian Duran is a 74 y.o. female who has a past medical history of Arthritis, Chest pain, Cholecystitis, Chronic kidney disease, Colon polyps, Decreased hearing, bilateral, Diabetes mellitus (CMS-HCC), DUB (dysfunctional uterine bleeding), Gastritis, Herniated disc, cervical, Hyperlipidemia, Hypertension, Hypothyroidism, Obesity, Seasonal allergies, Sleep apnea, UTI (urinary tract infection), Visual impairment, and Yeast infection. who presents today for several issues. She has a family history of colon cancer in his due for screening colonoscopy. She had a mother with what she believes was esophageal cancer she herself is having some intermittent reflux and is not having severe dysphagia. She had been undergoing evaluation for question about her pancreas but also right upper quadrant discomfort had an ultrasound and then had a CT scan. Possible steatosis and hepatomegaly with borderline increase in spleen size were seen. She does not have a recent CBC with a platelet count but the previous ones from last year showed a normal platelet count. She has had a minor elevation in ALT periodically. She also has an increase in hemoglobin which is being attributed at this point to sleep apnea. Apparently has significant sleep apnea. 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 She has no encephalopathy variceal bleeding ascites or edema.. Past Medical History: Diagnosis Date Arthritis Chest pain Cholecystitis Chronic kidney disease stage III Colon polyps Decreased hearing, bilateral Diabetes mellitus (CMS-HCC) DUB (dysfunctional uterine bleeding) Gastritis Herniated disc, cervical Hyperlipidemia Hypertension Hypothyroidism Obesity Seasonal allergies Sleep apnea CPAP UTI (urinary tract infection) Visual impairment glasses Yeast infection PREVIOUS ENDOSCOPY OR X-RAY PROCEDURES: As noted in the HPI Past Surgical History: Past Surgical History: Procedure Laterality Date CARPAL TUNNEL RELEASE Bilateral CHOLECYSTECTOMY COLONOSCOPY N/A 08/05/2020 Performed by Urbano Leonard MD at [facility] DILATION AND CURETTAGE OF UTERUS x2 EGD N/A 08/05/2020 Performed by Urbano Leonard MD at [facility] EYE SURGERY HYSTERECTOMY JOINT REPLACEMENT left knee KNEE ARTHROSCOPY Left x2 LAPAROSCOPY x2 RELEASE CARPAL TUNNEL Left 06/05/2017 Performed by Jr Laya Pham DO at [facility] REPLACEMENT TOTAL JOINT KNEE Right 07/23/2018 Performed by Jr Laya Pham DO at [facility] SHOULDER SURGERY TRIGGER FINGER RELEASE Current Medications: Current Outpatient Medications: atorvastatin (LIPITOR) 10 mg tablet, Take 1 tablet (10 mg total) by mouth in the morning., Disp: , Rfl: calcium citrate-vitamin D2 250 mg-2.5 mcg (100 unit) per tablet, Take 1 tablet by mouth in the morning., Disp: , Rfl: cranberry 400 mg capsule, Take 1 capsule (400 mg total) by mouth in the morning and 1 capsule (400 mg total) before bedtime., Disp: , Rfl: cranberry fruit (CRANBERRY) 450 mg tablet, Take by mouth., Disp: , Rfl: FARXIGA 10 mg tablet, Take 1 tablet (10 mg total) by mouth., Disp: , Rfl: fluticasone (FLONASE) 50 mcg/actuation nasal spray, Administer 1 spray into each nostril in the morning., Disp: , Rfl: furosemide (LASIX) 20 mg tablet, Take 1 tablet (20 mg total) by mouth 2 (two) times a day as needed., Disp: , Rfl: HAIR, SKIN AND NAILS, BIOTIN, ORAL, Take by mouth., Disp: , Rfl: JANUVIA 50 mg tablet, Take 1 tablet (50 mg total) by mouth., Disp: , Rfl: fdalvgyzx-O2-lqQ94-algal oil (METANX, ALGAL OIL,) 3 mg-35 mg-2 mg -90.314 mg capsule, Take 1 capsule by mouth in the morning., Disp: , Rfl: levothyroxine (SYNTHROID, LEVOTHROID) 100 MCG tablet, Take 75 mcg by mouth in the morning., Disp: , Rfl: lisinopriL (PRINIVIL,ZESTRIL) 2.5 mg tablet, Take 1 tablet (2.5 mg total) by mouth in the morning., Disp: , Rfl: mecobal/levomefolat Ca/B6 phos (METANX ORAL), Take by mouth., Disp: , Rfl: metformin HCl (METFORMIN ORAL), Take 500 mg by mouth in the morning and 500 mg before bedtime., Disp: , Rfl: multivitamin capsule, Take 1 capsule by mouth in the morning., Disp: , Rfl: omega 4-diu-siv-fish oil (Fish OiL) 300-1,000 mg capsule, Take by mouth., Disp: , Rfl: oxybutynin XL (DITROPAN-XL) 10 mg 24 hr tablet, Take 15 mg by mouth in the morning., Disp: , Rfl: I reviewed and reconciled this patient's medication list today. The list included in this note is the most up to date list that I can attest to at this time based on the information that the patient has provided me and the electronic medical record. ALLERGIES: Adhesive SOCIAL HISTORY: Social History Tobacco Use Smoking status: Never Smokeless tobacco: Never Vaping Use Vaping status: Never Used Substance Use Topics Alcohol use: No Comment: rarely Drug use: No FAMILY HISTORY: Family History Problem Relation Age of Onset Hypertension Mother Cancer Mother Diabetes Mother Colon cancer Mother Heart disease Mother Kidney disease Mother Diabetes Father Cancer Father bladder Kidney disease Father Alzheimer's disease Father Colon cancer Brother ASSESSMENTS: REVIEW OF SYSTEMS: See HPI, otherwise ROS as below Review of Systems Constitutional: Negative for activity change, appetite change, chills, fatigue and fever. HENT: Negative for trouble swallowing and voice change. Eyes: Negative for pain and redness. Respiratory: Negative for cough, shortness of breath, wheezing and stridor. Cardiovascular: Negative for chest pain and leg swelling. Gastrointestinal: Positive for abdominal pain. Negative for abdominal distention, anal bleeding, blood in stool, constipation, diarrhea, nausea, rectal pain and vomiting. Endocrine: Negative for polydipsia and polyuria. Genitourinary: Negative for difficulty urinating and flank pain. Musculoskeletal: Negative for arthralgias, gait problem and joint swelling. Skin: Negative for color change and rash. Neurological: Negative for speech difficulty and headaches. Hematological: Negative for adenopathy. Does not bruise/bleed easily. Psychiatric/Behavioral: Negative for confusion and hallucinations. PHYSICAL EXAM: Vitals: 01/21/25 0902 BP: 128/84 Weight: 95.8 kg (211 lb 3.2 oz) Body mass index is 32.11 kg/m . Physical Exam Alert oriented x3 Abdomen soft nontender no mass organomegaly DATA: CBC: Lab Results Component Value Date WBC 7.3 06/27/2018 HGB 12.7 07/24/2018 HCT 39.4 07/24/2018 MCV 88 06/27/2018 RDW 13.7 06/27/2018 PLT 241 06/27/2018 CMP: Lab Results Component Value Date K 3.6 06/27/2018 CL 101 06/27/2018 CO2 26 06/27/2018 BUN 23 06/27/2018 GLU 119 (H) 06/27/2018 ASSESSMENT AND PLAN: Vivian Duran is a 74 y.o. female who has a past medical history of Arthritis, Chest pain, Cholecystitis, Chronic kidney disease, Colon polyps, Decreased hearing, bilateral, Diabetes mellitus (CMS-HCC), DUB (dysfunctional uterine bleeding), Gastritis, Herniated disc, cervical, Hyperlipidemia, Hypertension, Hypothyroidism, Obesity, Seasonal allergies, Sleep apnea, UTI (urinary tract infection), Visual impairment, and Yeast infection. who presents today to discuss several issues. Will plan colonoscopy because of family history of colon cancer. Will plan EGD because of reflux family history of esophageal cancer and possibility of portal hypertension. Will check CBC and fibrosis estimation lab work to see if there is evidence for significant fibrosis. She could have non-alcoholic steatohepatitis syndrome given the steatosis seen and she also could have hemochromatosis given the elevated hemoglobin. Because of the question of the severity of her sleep apnea will schedule her outpatient at the hospital. ASA 3 flower. 1. Portal venous hypertension (CMS-HCC) 2. Family history of colon cancer 3. Abnormal liver enzymes 4. Gastroesophageal reflux disease, unspecified whether esophagitis present 5. Family history of esophageal cancer 6. Sleep apnea, unspecified type Orders Placed This Encounter Procedures CBC auto differential FibroTest-ActiTest, S Colonoscopy EGD [facility] [address] [address] PH: [phone] documented in this encounter [facility] 01-09-2025 Telephone encounter Note Refills sent. [facility] 01-09-2025 Miscellaneous Notes Refills sent. documented in this encounter [facility] 01-03-2025 Telephone encounter Note Refills sent. [facility] 01-03-2025 Miscellaneous Notes Refills sent. documented in this encounter [facility] 12-31-2024 Telephone encounter Note Rx sent to pharmacy [facility] 12-31-2024 Miscellaneous Notes Rx sent to pharmacy Patient has a dental appt she needs a refill for amox 500mg please call [facility] to [facility] [phone]. documented in this encounter [facility] 12-31-2024 Telephone encounter Note Patient has a dental appt she needs a refill for amox 500mg please call [facility] [phone]. [facility] 12-17-2024 Telephone encounter Note error [facility] 12-17-2024 Miscellaneous Notes error documented in this encounter [facility] 12-16-2024 History of Present illness Narrative Associated Problem(s): Acquired hypothyroidism (CMS/HCC) Continue synthroid. Labs are utd. Associated Problem(s): Stage 3a chronic kidney disease (HCC) (CMS/HCC) Also sees nephrology twice yearly. Associated Problem(s): Essential hypertension (CMS/HCC) Has had some mild elevations in her numbers, accompanied by chest heaviness. It is also always accompanied by anxiety. Cardiac evaluation including stress test has been normal. None of this recently as of 12/16/24. Associated Problem(s): Obstructive sleep apnea syndrome Compliant with machine. Feels rested. Images from the original note were not included. Vivian Duran is a 74 y.o. female presents with chief complaint of No chief complaint on file. HPI: HPI History of Present Illness The patient presents for a diabetes follow-up and wellness visit. She reports an improvement in her mental health status. She has completed her mammogram and is due for a colonoscopy, with the last one performed 5 years ago. She has observed a change in her urine color, which has become darker and more odorous, even though she maintains adequate hydration. She experiences dry throat, which she attributes to dehydration. She has not experienced any recent falls and is independent in her activities of daily living, including eating, bathing, dressing, meal preparation, housework, and grocery shopping. Her physical activity is limited to walking. She expresses confidence in her ability to manage her health issues, although she occasionally feels overwhelmed. She manages her finances independently. She reports no hearing or memory issues but experiences dry eyes. She experiences pain daily, rating it between 5 and 6 on a scale of 0 to 10. 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 She has been experiencing nail cracking and breaking, despite long-term use of multivitamins. She also reports nasal drainage and a persistent cough. She reports no recent episodes of chest heaviness or other related issues. She has been monitoring her blood glucose levels at home, with readings ranging from 180 to 106. She has observed that earlier evening meals, particularly low-carbohydrate ones, result in lower morning readings. Discussed height, weight and BMI. Encouraged healthy diet and regular exercise. Discussed vaccines and encouraged yearly flu shot. Annual eye and dental exam. Vaccines and cancer screens reviewed for completeness. Screen labs as needed. Assessed needs for tools in the home for independence. Living will and durable power of cell operation supervisor reviewed. Updated patient problem list and reviewed all current medications with patient. Given time to ask questions. Over the past 2 weeks, how often have you been bothered by any of the following problems? Little interest or pleasure in doing things: Not at all Feeling down, depressed, or hopeless: Not at all Patient Health Questionnaire-2 Score: 0 Edwards Fall Risk History of Falling, Immediate or Within 3 Months: No Secondary Diagnosis: No Ambulatory Aid: Walks without aid/bedrest/nurse assist Intravenous Therapy/Heparin Lock: No Gait/Transferring: Normal/bedrest/immobile Mental Status: Oriented to own ability Edwards Fall Risk Score: 0 Health Risk Assessment Form Do you need help eating, bathing, using the toilet, dressing, or getting around your home?: No Can you prepare your own meals?: Yes Can you do your own housework without help?: Yes Can you shop for groceries or clothes without help?: Yes Do you exercise for about 20 minutes 3 or more days a week?: No How confident are you that you can control and manage most of your health problems?: Very confident Can you mange your money, credit cards and accounts, pay bills and taxes?: Yes Vision Screening: Yes, no gross abnormalities Hearing Screening: Yes, no gross abnormalities Cognitive Screening Self Assessment: No overt cognitive deficiency is apparent by direct observation Three Word Registration: Village, Kitchen, Baby Clock Drawing: Normal Clock - 2 Three Word Recall: All 3 words correct - 3 Total Score (0-5 Points): 5 Pain Assessment Pain Score: 5 - Moderate pain SUBJECTIVE: MEDICATIONS: Current Outpatient Medications Medication Instructions atorvastatin (LIPITOR) 10 mg, Oral, Daily Blood Glucose Monitoring Suppl (Pure[employer] Verio Reflect) w/Device kit clotrimazole (Lotrimin) 1 % cream Topical, 2 times daily Cranberry 425 MG capsule dapagliflozin (FARXIGA) 10 mg, Oral, Daily fluocinonide (Lidex) 0.05 % cream Apply to rash up to twice a day when flared, do not use one the face, groin, or underarms, 30 day supply fluticasone (Flonase) 50 MCG/ACT nasal spray USE 1 SPRAY IN BOTH NOSTRILS ONCE DAILY furosemide (LASIX) 20 mg, Oral, Daily glucose blood ([email or web address] Verio) test strip FINGERSTICK DAILY. A-Zmskjpznbjju-Ouqbm-B12-B6 (Metanx) 3-90.314-2-35 MG capsule TAKE 1 CAPSULE BY MOUTH TWO TIMES A DAY DIRECTED Lancets ([email or web address] Delica Plus [id number]) misc 1 Lancet, Topical, Daily levothyroxine (SYNTHROID) 100 mcg, Oral, Daily lisinopril 2.5 mg, Oral, Daily metFORMIN (GLUCOPHAGE) 500 mg, Oral, 2 times daily with meals Multiple Vitamins-Minerals (Womens Multi Vitamin & Mineral) tablet oxybutynin XL (Ditropan-XL) 15 MG 24 hr tablet Take 1 tablet by mouth once a day SITagliptin (JANUVIA) 50 mg, Oral, Daily I have reviewed and reconciled the history and medication list with the patient today. REVIEW OF SYMPTOMS: Review of Systems OBJECTIVE: Visit Vitals BP 124/68 Pulse 70 Ht 5' 6.5 Wt 209 lb 9.6 oz SpO2 97% BMI 33.32 kg/m OB Status Hysterectomy Smoking Status Never BSA 2.11 m Physical Exam Vitals and nursing note reviewed. Constitutional: General: She is not in acute distress. Appearance: Normal appearance. HENT: Head: Normocephalic and atraumatic. Right Ear: Tympanic membrane normal. Left Ear: Tympanic membrane normal. Nose: Nose normal. Mouth/Throat: Mouth: Mucous membranes are moist. Pharynx: Oropharynx is clear. Eyes: Extraocular Movements: Extraocular movements intact. Cardiovascular: Rate and Rhythm: Normal rate and regular rhythm. Pulses: Normal pulses. Heart sounds: Normal heart sounds. Pulmonary: Effort: Pulmonary effort is normal. Breath sounds: Normal breath sounds. Musculoskeletal: Cervical back: Normal range of motion and neck supple. Skin: General: Skin is warm and dry. Neurological: General: No focal deficit present. Mental Status: She is alert. Psychiatric: Mood and Affect: Mood normal. ASSESSMENT AND PLAN: Assessment & Plan 1. Health maintenance. Her immunization status is current, with the exception of the RSV vaccine, which is recommended for individuals over 65 years of age. She has successfully completed the cognitive function test, including recall of three words and drawing a clock. She has expressed concerns regarding potential dehydration, as evidenced by dark yellow urine and dry mouth. However, these symptoms could also be side effects of her medications. She has been experiencing nail cracking and breaking, despite long-term use of multivitamins. She also reports nasal drainage and a persistent cough, which could be attributed to reflux. She was advised to consider receiving the RSV vaccine at her local pharmacy. She was informed that concentrated urine and dry mouth can be indicative of dehydration, but these symptoms can also be side effects of medications. Other signs of dehydration include poor skin turgor and headaches. She was advised to continue her multivitamin regimen and to monitor her symptoms. She was advised to monitor her symptoms and report any changes. A referral for a colonoscopy has been initiated, as her last procedure was conducted 5 years ago. Laboratory tests, including A1c, lipid panel, and liver enzymes, have been ordered. 2. Diabetes Mellitus. She reports that her blood sugar levels have been generally well-controlled, with occasional spikes up to 180 mg/dL, likely related to meal timing and composition. She was advised to continue monitoring her blood sugar levels and to aim for earlier evening meals with low carbohydrate content to help maintain lower morning readings. An A1c test has been ordered to assess her long-term glucose control. Assessment/Plan Problem List Items Addressed This Visit Acquired hypothyroidism (CMS/HCC) Continue synthroid. Labs are utd. Fatty liver Essential hypertension ([facility]/HCC) Has had some mild elevations in her numbers, accompanied by chest heaviness. It is also always accompanied by anxiety. Cardiac evaluation including stress test has been normal. None of this recently as of 12/16/24. Relevant Orders Lipid panel Comprehensive metabolic panel Hemoglobin A1c Gastroesophageal reflux disease Mixed hyperlipidemia ([facility]/HCC) Obstructive sleep apnea syndrome Compliant with machine. Feels rested. Stage 3a chronic kidney disease (HCC) (CMS/HCC) Also sees nephrology twice yearly. Type 2 diabetes mellitus with diabetic chronic kidney disease ([facility]) Relevant Orders Lipid panel Comprehensive metabolic panel Hemoglobin A1c Other Visit Diagnoses Wellness examination - Primary Discussed height, weight and BMI. Encouraged healthy diet and regular exercise. Discussed vaccines and encouraged yearly flu shot. Annual eye and dental exam. Vaccines and cancer screens reviewed for completeness. Screen labs as needed. Assessed needs for tools in the home for independence. Living will and durable power of cell operation supervisor reviewed. Updated patient problem list and reviewed all current medications with patient. Given time to ask questions. Chronic kidney disease, stage 3a (HCC) ([facility]) Sees nephrology twice yearly. documented in this encounter [facility] 12-05-2024 History of Present illness Narrative Images from the original note were not included. Vivian Duran is a 74 y.o. female presents with chief complaint of hasn't seen Dr. Sargent yet. Won't do scope without having a sleep study done first. Sleep study was done on 09/10/25 . They recommend EGD and patient wants colonoscopy too but they wont do it. HPI: HPI History of Present Illness The patient presents for evaluation of portal hypertension, abdominal discomfort, and sleep apnea. She was previously referred to Dr. Sargent's office for an EGD due to portal hypertension identified in a prior study. However, the procedure was postponed pending the results of a sleep study. Despite submitting the sleep study results, she did not receive any follow-up communication from Dr. Sargent's office. Upon contacting them, she was informed that they would not proceed with the EGD due to her severe sleep apnea and recommended consultation with a specialist. She is currently contemplating whether to undergo the EGD or seek alternative treatment options. She recently consulted with Dr. Wells, who suggested a colonoscopy to investigate the cause of her intermittent abdominal discomfort. She suspects the presence of scar tissue, but Dr. Wells believes it may be related to intestinal issues. Her last colonoscopy was performed 5 years ago, and she is due for another one based on her family history. She also reports occasional tightness in her bladder sling, which she associates with bowel movements. She experiences significant pressure during these episodes, which subsides post-defecation. She has been diagnosed with severe sleep apnea, which was identified during a sleep study conducted without the use of a CPAP machine. She has been advised to consult a specialist for further management. She uses a CPAP machine nightly but reports experiencing nasal congestion and difficulty breathing, even with the use of a nasal spray. She also reports increased air pressure from the CPAP machine, leading to dryness in her throat and eyes. She has an upcoming appointment with a sleep apnea specialist in 12/2024 and plans to discuss these issues. She is considering alternative treatments for sleep apnea and has found relief from nasal inhalers like Vicks. She also reports waking up with dry, matted eyes and thick congestion, which she suspects may be allergy-related. She occasionally experiences coughing. FAMILY HISTORY The patient has a family history of colon cancer. MEDICATIONS Current: Oxybutynin SUBJECTIVE: MEDICATIONS: Current Outpatient Medications Medication Instructions atorvastatin (LIPITOR) 10 mg, Oral, Daily Blood Glucose Monitoring Suppl (PureForge Verio Reflect) w/Device kit clotrimazole (Lotrimin) 1 % cream Topical, 2 times daily Cranberry 425 MG capsule dapagliflozin (FARXIGA) 10 mg, Oral, Daily fluocinonide (Lidex) 0.05 % cream Apply to rash up to twice a day when flared, do not use one the face, groin, or underarms, 30 day supply fluticasone (Flonase) 50 MCG/ACT nasal spray USE 1 SPRAY IN BOTH NOSTRILS ONCE DAILY furosemide (LASIX) 20 mg, Oral, Daily glucose blood (OneTouch Verio) test strip FINGERSTICK DAILY. H-Ypvphoptuees-Jagnx-B12-B6 (Metanx) 3-90.314-2-35 MG capsule TAKE 1 CAPSULE BY MOUTH TWO TIMES A DAY DIRECTED Lancets (OneTouch Delica Plus [id number]) misc 1 Lancet, Topical, Daily levothyroxine (SYNTHROID) 100 mcg, Oral, Daily lisinopril 2.5 mg, Oral, Daily metFORMIN (GLUCOPHAGE) 500 mg, Oral, 2 times daily with meals Multiple Vitamins-Minerals (Womens Multi Vitamin & Mineral) tablet oxybutynin XL (Ditropan-XL) 15 MG 24 hr tablet Take 1 tablet by mouth once a day SITagliptin (JANUVIA) 50 mg, Oral, Daily I have reviewed and reconciled the history and medication list with the patient today. REVIEW OF SYMPTOMS: Review of Systems OBJECTIVE: Visit Vitals BP 128/80 Pulse 92 Ht 5' 6 Wt 210 lb 3.2 oz SpO2 97% BMI 33.93 kg/m OB Status Hysterectomy Smoking Status Never BSA 2.11 m Physical Exam ASSESSMENT AND PLAN: Assessment & Plan 1. Portal hypertension. The ultrasound results indicate portal venous congestion or portal venous hypertension. An EGD is deemed necessary for further evaluation. A referral to a GI specialist will be initiated for the EGD procedure. All relevant information, including the ultrasound and echocardiogram results, will be forwarded to the specialist. 2. Abdominal discomfort. Given the family history and the fact that it has been 5 years since the last colonoscopy, a new colonoscopy is warranted. The patient reports feeling pressure on the bladder sling, which eases after bowel movements. A referral to a GI specialist will be made for the colonoscopy. The patient will be contacted to schedule the procedure. 3. Sleep apnea. The patient reports issues with nasal congestion and dryness in the throat and eyes while using the CPAP machine. There is some scabbing in the nose, which may be contributing to the obstruction. The patient is advised to continue using saline nasal sprays and to avoid other nasal sprays due to irritation. Ytyw-hva-wawwxfb Mucinex is recommended to alleviate symptoms. The patient has an appointment with a sleep specialist in December to discuss these issues and potential alternatives to the CPAP machine. PROCEDURE Colonoscopy performed 5 years ago. Assessment/Plan Problem List Items Addressed This Visit Obstructive sleep apnea syndrome LARSON (nonalcoholic steatohepatitis) Other Visit Diagnoses Family history of colon cancer Relevant Orders Ambulatory referral to Gastroenterology Portal venous hypertension (CMS/HCC) Relevant Orders Ambulatory referral to Gastroenterology I personally spent over half of a total 30 minutes face to face with the patient in counseling and discussion and/or coordination of care as described above. documented in this encounter [facility] 11-26-2024 History of Present illness Narrative Images from the original note were not included. Elmer Wells, DO Obstetrics and Gynecology Vivian Duran 1950 11/26/24 [id number] Yearly Wellness Exam Chief Complaint Patient presents with Gynecologic Exam Medicare off year. Accompanied by , Neptali. LMP: MIGUELITO BSO 1994 HRT: None Last pap 08-21-23 neg. Last mammogram 10-28-24 [facility]. Denies breast, urinary, or bowel concerns. abdominal pain Reports ongoing, but intermittent abdominal pain and discomfort- questions scar tissue. Multiple CT scans and ultrasound were normal. Reminds her of menstrual cramps, sometimes lasts days at a time. One CT scan did mention stool build up- planning EGD, but had to have sleep study- has not heard back to schedule. Visit Vitals BP 132/80 Ht 5' 6.5 Wt 206 lb BMI 32.75 kg/m OB Status Hysterectomy Smoking Status Never BSA 2.09 m OB History Para Term AB Living 4 2 2 2 SAB IAB Ectopic Multiple Live Births 2 2 # Outcome Date GA Lbr Brian/2nd Weight Sex Type Anes PTL Lv 4 SAB 3 SAB 2 Para Vag-Spont ADRIANE 1 Para Vag-Spont ADRIANE Obstetric Comments Biggest baby was 8 lbs 1 oz + adopted 1 child Current Outpatient Medications Medication Sig Dispense Refill atorvastatin (Lipitor) 10 MG tablet Take 1 tablet (10 mg) by mouth Daily 100 tablet 0 Blood Glucose Monitoring Suppl ([email or web address] Verio Reflect) w/Device kit clotrimazole (Lotrimin) 1 % cream Apply topically 2 (two) times a day 30 g 0 Cranberry 425 MG capsule dapagliflozin (Farxiga) 10 MG Take 1 tablet (10 mg) by mouth Daily 90 tablet 1 fluocinonide (Lidex) 0.05 % cream Apply to rash up to twice a day when flared, do not use one the face, groin, or underarms, 30 day supply 30 g 11 fluticasone (Flonase) 50 MCG/ACT nasal spray USE 1 SPRAY IN BOTH NOSTRILS ONCE DAILY 32 g 1 furosemide (Lasix) 20 MG tablet Take 1 tablet (20 mg) by mouth Daily 100 tablet 1 glucose blood ([email or web address] Verio) test strip FINGERSTICK DAILY. 100 strip 1 E-Xlfxzxaecgas-Dxuxj-B12-B6 (Metanx) 3-90.314-2-35 MG capsule TAKE 1 CAPSULE BY MOUTH TWO TIMES A DAY DIRECTED 180 capsule 3 Lancets ([email or web address] Delica Plus [id number]) misc Apply 1 Lancet topically Daily 100 each 3 levothyroxine (Synthroid) 100 MCG tablet Take 1 tablet (100 mcg) by mouth Daily 100 tablet 1 lisinopril 2.5 MG tablet Take 1 tablet (2.5 mg) by mouth Daily 100 tablet 1 metFORMIN (Glucophage) 500 MG tablet Take 1 tablet (500 mg) by mouth in the morning and 1 tablet (500 mg) in the evening. Take with meals. 180 tablet 0 methylPREDNISolone (Medrol Dospak) 4 MG tablets Follow schedule on package instructions 21 tablet 0 Multiple Vitamins-Minerals (Womens Multi Vitamin & Mineral) tablet oxybutynin XL (Ditropan-XL) 15 MG 24 hr tablet Take 1 tablet by mouth once a day 90 tablet 3 SITagliptin (Januvia) 50 MG tablet Take 1 tablet (50 mg) by mouth Daily 90 tablet 0 No current facility-administered medications for this visit. Allergies Allergen Reactions Wound Dressing Adhesive Rash Past Surgical History: Procedure Laterality Date ANTERIOR CERVICAL DISCECTOMY W/ FUSION CARPAL TUNNEL RELEASE Right CARPAL TUNNEL RELEASE Left 06/05/2017 CARPAL TUNNEL RELEASE Right 07/23/2018 CATARACT EXTRACTION 11/2019 CAUDAL INJECTION 2009 3 CHOLECYSTECTOMY COLONOSCOPY 2009 COLONOSCOPY 2004 neg COLONOSCOPY W/ POLYPECTOMY 2013 COLONOSCOPY W/ POLYPECTOMY 07/2020 CT ANGIOGRAM HEART CORONARY 09/19/2022 CT ANGIOGRAM HEART CORONARY 09/19/2022 D&C FIRST TRIMESTER / TX INCOMPLETE / MISSED / SEPTIC / INDUCED 1989 x2 ESOPHAGOSCOPY / EGD 2013 ESOPHAGOSCOPY / EGD 07/2020 with bx JOINT REPLACEMENT KNEE SURGERY Left 2005 arhtrocsopy KNEE SURGERY Left 2001 scope KNEE SURGERY Left 06/02/2014 STEF LASER LAPAROSCOPY 1994 x2 OTHER SURGICAL HISTORY 2012 ACD/ACF OTHER SURGICAL HISTORY 2005 TVT-O ROTATOR CUFF REPAIR Right 2013 ROTATOR CUFF REPAIR Left 2011 SPINE SURGERY TOTAL ABDOMINAL HYSTERECTOMY W/ BILATERAL SALPINGOOPHORECTOMY 1995 TOTAL KNEE ARTHROPLASTY Left 01/27/2014 TRIGGER FINGER RELEASE Right 2010 VAGINAL DELIVERY x2 Past Medical History: Diagnosis Date 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 Carpal tunnel syndrome Cholecystitis 1994 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 CKD (chronic kidney disease), stage III (HCC) ([facility]) Colon polyps 2013 Decreased hearing of both ears Diabetes ([facility]/HCC) Disease of thyroid gland ([facility]) DUB (dysfunctional uterine bleeding) ETD (Eustachian tube dysfunction), bilateral Frozen shoulder GERD (gastroesophageal reflux disease) Headache Headache, tension-type of and on HTN (hypertension) ([facility]) Hyperlipidemia ([facility]) Intervertebral disc disorder with myelopathy, cervical region 04/05/2009 Nasal drainage Neuropathy in diabetes ([facility]) past 2 to 3 yrs Obesity Personal history of other medical treatment herniated disc Pressure sensation in both ears Rotator cuff syndrome Rotator cuff tear, right Sleep apnea Tear of meniscus of knee Trigger finger Urinary tract infection ROS Const: Denies appetite change, fever, chills. Allergy: Denies medication reaction. Ocular: Denies visual acuity change. ENT: Denies hearing change. Endoc: Denies weight loss. Resp: Denies dyspnoea, wheezing. Cardiac: Denies angina, palpitations. GI: Denies nausea, vomiting. Haem: Denies bleeding. : Denies incontinence. MSK: Denies arthralgias, joint oedema. Derm: Denies rash, hair loss. Neuro: Denies ataxia, tremor. Also see HPI for elements of ROS documented therein and for details of positive findings, which shall supersede the foregoing. EXAM GENERAL EXAMINATION alert oriented well developed, well nourished. HEAD: normocephalic atraumatic. EYES: sclera anicteric. EARS: no obvious hearing deficit. NECK/THYROID: neck supple no cervical lymphadenopathy no thyromegaly. LYMPH NODES: no axillary, supraclavicular or inguinal adenopathy. SKIN: warm and dry. HEART: regular rate and rhythm. LUNGS: clear to auscultation bilaterally. CHEST:axillary nodes grossly normal. BREASTS:no masses palpable bilaterally, normal nipples bilaterally - everted -fatty replaced - dense - well supported- axilla negative, ch ABDOMEN: soft, nontender, nondistended, no masses palpable. BACK: no costovertebral angle tenderness, no obvious scoliosis/kyphosis. FEMALE GENITOURINARY:fur clipper in room - good hormone- cuff well supported - no studding or induration - side rene negative - adnex negative, gr.1 RECTAL:normal tone , no masses palpable , only small external hemorrhoids. EXTREMITIES no edema. NEUROLOGIC: alert and oriented. PSYCH: cooperative with exam. ICD-10-CM 1. Postmenopausal atrophic vaginitis N95.2 Pelvic and breast exam completed. Findings of today's exam discussed with the patient. Continue MSBE. Ca/Vit D recommendations reviewed with the patient. The patient is to contact the office with any changes to her gynecological condition or any changes with breast or bleeding. The patient is to return in 1 year or as needed 2. Breast cancer screening by mammogram Z12.31 Bilateral screening mammogram with tomosynthesis Screening mammogram ordered. Patient to call and schedule. 3. Urgency incontinence N39.41 Tolerating oxybutynin well. Yeas supply sent in October. 4. Hot flashes R23.2 Comes and goes. Discussed abdominal discomfort. Following Dr. Sargent. Having EGD, advised to have colonoscopy as well. Discussed family history. Discomfort not reproduced on exam. Entered by Aida Loya MA acting as scribe for Dr. Elmer Wells. Signature Aida Loya MA Date 11/26/24 . Time 1:54 PM . The documentation recorded by the scribe accurately reflects the service(s) I personally performed and the decisions I made. Signature Alphonso Wells D.O. Date 11/26/24 Time 5:00PM. documented in this encounter [facility] 11-18-2024 History of Present illness Narrative Images from the original note were not included. Subjective Patient ID: Vivian Duran is a 74 y.o. female who presents for DM Foot Care (Established pt presents today for DM foot check. Pt also relates numbness with feet, and states feels weird in most shoes. PCP: Dr. Renée HARO 09/16/24, A1C: 6.7 (09/16/24), BS: 136). HPI Established patient presents to clinic for diabetic foot check. Patient relates numbness sensations in her feet and toes. She has been taking Metanx and does note significant improvement since starting the Metanx. She also has noted some thickening of the joint of the 2nd toe on the right foot and some slight deformity forming. She does not seem to have any current pain or disability with the feet. Review of Systems Constitutional: Negative for activity change and appetite change. Respiratory: Negative for chest tightness and shortness of breath. Cardiovascular: Negative for chest pain. Musculoskeletal: Positive for arthralgias. Negative for gait problem. Skin: Negative for color change and wound. Neurological: Positive for numbness. Negative for weakness. Psychiatric/Behavioral: Negative for agitation and behavioral problems. Hematological: Does not bruise/bleed easily. Endocrine: Negative for cold intolerance and heat intolerance. Allergic/Immunologic: Negative for immunocompromised state. 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 CKD (chronic kidney disease), stage III (HCC) (CMS/HCC) Colon polyps 2013 Decreased hearing of both ears Diabetes (CMS/HCC) Disease of thyroid gland (CMS/HCC) DUB (dysfunctional uterine bleeding) ETD (Eustachian tube dysfunction), bilateral Frozen shoulder GERD (gastroesophageal reflux disease) Headache Headache, tension-type of and on HTN (hypertension) (CMS/HCC) Hyperlipidemia (CMS/HCC) Intervertebral disc disorder with myelopathy, cervical region 04/05/2009 Nasal drainage Neuropathy in diabetes (CMS/HCC) past 2 to 3 yrs Obesity Personal history of other medical treatment herniated disc Pressure sensation in both ears Rotator cuff syndrome Rotator cuff tear, right Sleep apnea Tear of meniscus of knee Trigger finger Urinary tract infection Medications Current Outpatient Medications: atorvastatin (Lipitor) 10 MG tablet, Take 1 tablet (10 mg) by mouth Daily, Disp: 100 tablet, Rfl: 0 Blood Glucose Monitoring Suppl ([email or web address] Verio Reflect) w/Device kit, , Disp: , Rfl: clotrimazole (Lotrimin) 1 % cream, Apply topically 2 (two) times a day, Disp: 30 g, Rfl: 0 Cranberry 425 MG capsule, , Disp: , Rfl: dapagliflozin (Farxiga) 10 MG, Take 1 tablet (10 mg) by mouth Daily, Disp: 90 tablet, Rfl: 1 fluocinonide (Lidex) 0.05 % cream, Apply to rash up to twice a day when flared, do not use one the face, groin, or underarms, 30 day supply, Disp: 30 g, Rfl: 11 fluticasone (Flonase) 50 MCG/ACT nasal spray, USE 1 SPRAY IN BOTH NOSTRILS ONCE DAILY, Disp: 32 g, Rfl: 1 furosemide (Lasix) 20 MG tablet, Take 1 tablet (20 mg) by mouth Daily, Disp: 100 tablet, Rfl: 1 glucose blood ([email or web address] Verio) test strip, FINGERSTICK DAILY., Disp: 100 strip, Rfl: 1 M-Mwruanlsrwnn-Gsoax-B12-B6 (Metanx) 3-90.314-2-35 MG capsule, TAKE 1 CAPSULE BY MOUTH TWO TIMES A DAY DIRECTED, Disp: 180 capsule, Rfl: 3 Lancets ([email or web address] Delica Plus [id number]) mis, Apply 1 Lancet topically Daily, Disp: 100 each, Rfl: 3 levothyroxine (Synthroid) 100 MCG tablet, Take 1 tablet (100 mcg) by mouth Daily, Disp: 100 tablet, Rfl: 1 lisinopril 2.5 MG tablet, Take 1 tablet (2.5 mg) by mouth Daily, Disp: 100 tablet, Rfl: 1 metFORMIN (Glucophage) 500 MG tablet, Take 1 tablet (500 mg) by mouth in the morning and 1 tablet (500 mg) in the evening. Take with meals., Disp: 180 tablet, Rfl: 0 methylPREDNISolone (Medrol Dospak) 4 MG tablets, Follow schedule on package instructions, Disp: 21 tablet, Rfl: 0 Multiple Vitamins-Minerals (Womens Multi Vitamin & Mineral) tablet, , Disp: , Rfl: oxybutynin XL (Ditropan-XL) 15 MG 24 hr tablet, Take 1 tablet by mouth once a day, Disp: 90 tablet, Rfl: 3 SITagliptin (Januvia) 50 MG tablet, Take 1 tablet (50 mg) by mouth Daily, Disp: 90 tablet, Rfl: 0 Allergies Wound dressing adhesive Past Surgical History Past Surgical History: Procedure Laterality Date ANTERIOR CERVICAL DISCECTOMY W/ FUSION CARPAL TUNNEL RELEASE Right CARPAL TUNNEL RELEASE Left 06/05/2017 CARPAL TUNNEL RELEASE Right 07/23/2018 CATARACT EXTRACTION 11/2019 CAUDAL INJECTION 2009 3 CHOLECYSTECTOMY COLONOSCOPY 2008 COLONOSCOPY 2003 neg COLONOSCOPY W/ POLYPECTOMY 2013 COLONOSCOPY W/ POLYPECTOMY 07/2020 CT ANGIOGRAM HEART CORONARY 09/19/2022 CT ANGIOGRAM HEART CORONARY 09/19/2022 D&C FIRST TRIMESTER / TX INCOMPLETE / MISSED / SEPTIC / INDUCED 1989 x2 ESOPHAGOSCOPY / EGD 2013 ESOPHAGOSCOPY / EGD 07/2020 with bx JOINT REPLACEMENT KNEE SURGERY Left 2005 arhtrocsopy KNEE SURGERY Left 2001 scope KNEE SURGERY Left 06/02/2014 STEF LASER LAPAROSCOPY 1994 x2 OTHER SURGICAL HISTORY 2012 ACD/ACF OTHER SURGICAL HISTORY 2005 TVT-O ROTATOR CUFF REPAIR Right 2012 ROTATOR CUFF REPAIR Left 2011 SPINE SURGERY TOTAL ABDOMINAL HYSTERECTOMY W/ BILATERAL SALPINGOOPHORECTOMY 1995 TOTAL KNEE ARTHROPLASTY Left 01/27/2014 TRIGGER FINGER RELEASE Right 2010 VAGINAL DELIVERY x2 Family History Family History Problem Relation Name Age of Onset Diabetes Mother Gloria Long Hypertension Mother Gloria Long Heart disease Mother Gloria Long Colon cancer Mother Gloria Long Cancer Mother Gloria Long Hearing loss Mother Gloria Long Kidney disease Mother Gloria Long Miscarriages / Stillbirths Mother Gloria Long Hypertension Father Cheyenne Long Diabetes Father Cheyenne Long Alzheimer's disease Father Cheyenne Long Other (bladder cancer) Father Cheyenne Long Hearing loss Father Cheyenne Long Kidney disease Father Cheyenne Long Cancer Brother Rush Long COPD Brother Diogo Long Other (hypoexmic resp failure) Brother Diogo Long Emphysema Brother Diogo Long Cancer Mother's Sister Srini Harden Objective Physical Exam Constitutional: General: She is not in acute distress. Cardiovascular: Comments: DP pulse: 1/4 PT pulse: 1/4 Skin temperature is warm to cool Edema: Mild nonpitting bilaterally Pulmonary: Effort: Pulmonary effort is normal. No respiratory distress. Musculoskeletal: Cervical back: Neck supple. No rigidity. Comments: Pedal deformities: Pes planovalgus deformity with hallux valgus deformity worse on the right lower extremity with lateral deviation of the hallux. Slight medial deviation of the 2nd toe with slight elevation and plantar flexion contracture at the PIPJ joint. Skin: Capillary Refill: Capillary refill takes less than 2 seconds. Comments: Toenails currently manicured for length, thickness. Hyperkeratotic tissue: Left foot: Very minimal plantar medial 1st MTP Right foot: Very minimal plantar medial 1st MTP Skin is diffusely thin Hair growth: Absent Neurological: Mental Status: She is alert. Comments: Protective sensation intact at 7/10 pedal sites Vibratory sensation diminished at the 1st MTP bilaterally. Psychiatric: Mood and Affect: Mood normal. Behavior: Behavior normal. Assessment/Plan ICD-10-CM 1. Diabetic polyneuropathy associated with type 2 diabetes mellitus (CMS/[facility]) E11.42 2. Hallux valgus of right foot M20.11 3. 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 Diabetic foot evaluation performed. Patient remains low risk for pedal ulceration. She does have some mild deformity and neuropathy which places her at mild risk but otherwise she has no preulcerative lesions. She did elicit some concerns with neuropathic feelings. Currently her symptoms are nonpainful. She states that the Metanx has helped significantly and I recommend that she continue with this. She had some concern about an enlarging joint on the right 2nd toe and this is consistent with predislocation syndrome and hammertoe deformity in the setting of hallux valgus deformity. Continue to monitor for now as it seems to bother her very minimally. Patient wishes to follow up as needed. This note was created with the assistance of a speech recognition program. While intending to generate a timely document that accurately reflects the content of the visit, no guarantee can be provided that every grammatical or spelling mistake has been or will be identified or corrected. Thank you for your understanding. Brian Bryant DPM documented in this encounter [facility] 11-10-2024 Telephone encounter Note Hi, this is Rowley. The [facility] pharmacy, I was calling on prescriptions. I need the clarification on the direction. The patient is Hans dying date of , 2040. It is for the test trip to give me the call back at [phone]. Thank you so much. Mathieu baker. [facility] 11-10-2024 Miscellaneous Notes Hi, this is Kelsey. [facility], I was calling on prescriptions. I need the clarification on the direction. The patient is Hans dying date of , 2040. It is for the test trip to give me the call back at [phone]. Thank you so much. Mathieu baker. documented in this encounter [facility] 11-05-2024 History of Present illness Narrative Images from the original note were not included. HISTORY OF PRESENT ILLNESS: EST PT Vivian Duran is an 74 y.o. @ female. EST PT RECHECK RT KNEE- HX RT TKA 07/23/18 (~6YRS 3.5MO)- PT NOTES INCREASE PAIN ~1WK- NO KNOWN INJURY PT HAS BEEN IN PT FOR LUMBAR SPINE [facility]OM[facility]andra QUINTANILL[facility]; WONDERING IF SOME OF THE EXERCISES ARE FLARING THINGS UP ON RT KNEE BUT NO SPECIFIC INJURY XRAY RT KNEE TODAY 11/05/24 EPIC XRAY B/L KNEE 05/21/24 EPIC XRAY B/L KNEE CHANGE 05/11/23 XRAY B/L KNEE 04/17/ EXA XRAY 04/13/2020 IN EXA MDP GIVEN 04/17/22 NO BONE SCAN PHYSICAL THERAPY S/P (R) TKA NO PAIN MANAGEMENT PT STATES SHE FEELS LIKE HER KNEE IS LOCKING UP- SCARED TO DO STAIRS- PAIN LATERAL ASPECT- INTERMITTENT SWELLING- SOME DISCOMFORT AT REST/SLEEPING- MINIMAL STIFFNESS- +TYLENOL PRN History of Present Illness The patient presents for evaluation of right lateral knee pain. She reports a sensation of catching in her right knee, which she describes as feeling like gravel. However, she does not experience any episodes of the knee locking. ALLERGIES: Allergies Allergen Reactions Wound Dressing Adhesive Rash HOME MEDICATIONS: Current Outpatient Medications Medication Instructions atorvastatin (LIPITOR) 10 mg, Oral, Daily Blood Glucose Monitoring Suppl (PureForge Verio Reflect) w/Device kit clotrimazole (Lotrimin) 1 % cream Topical, 2 times daily Cranberry 425 MG capsule dapagliflozin (FARXIGA) 10 mg, Oral, Daily fluocinonide (Lidex) 0.05 % cream Apply to rash up to twice a day when flared, do not use one the face, groin, or underarms, 30 day supply fluticasone (Flonase) 50 MCG/ACT nasal spray USE 1 SPRAY IN BOTH NOSTRILS ONCE DAILY furosemide (LASIX) 20 mg, Oral, Daily glucose blood ([email or web address] Verio) test strip FINGERSTICK DAILY. Y-Niuytfemjmdz-Ojhrv-B12-B6 (Metanx) 3-90.314-2-35 MG capsule TAKE 1 CAPSULE BY MOUTH TWO TIMES A DAY DIRECTED Lancets (Modern FeedTouch Delica Plus [id number]) misc 1 Lancet, Topical, Daily levothyroxine (SYNTHROID) 100 mcg, Oral, Daily lisinopril 2.5 mg, Oral, Daily metFORMIN (GLUCOPHAGE) 500 mg, Oral, 2 times daily with meals methylPREDNISolone (Medrol Dospak) 4 MG tablets Follow schedule on package instructions Multiple Vitamins-Minerals (Womens Multi Vitamin & Mineral) tablet oxybutynin XL (Ditropan-XL) 15 MG 24 hr tablet Take 1 tablet by mouth once a day SITagliptin (JANUVIA) 50 mg, Oral, Daily PHYSICAL EXAM: Knee Musculoskeletal Exam Gait Gait is normal. Inspection Leg length disparity: no discrepancy Right Erythema: none Effusion: none Edema: none Ecchymosis: none Deformity: none Alignment: normal Previous incision: anterolateral Incision: well-healed Palpation Right Right knee palpation is unremarkable. Increased warmth: none Masses: none Tenderness: present Tenderness comment: no pain on palpation, mild soreness distal femur lateral condyle. and distal IT band insertion.. pt notes pain in posterior leg improving with therapy, no longer tender. Range of Motion Right Right knee range of motion is normal and full. Active extension: 0 Passive extension: 0 Active flexion: 120 Passive flexion: 120 Strength Right Right knee strength is normal. Extension: 5/5. Flexion: 5/5. Instability Right Instability signs: none - stable Varus stress grade: normal Valgus stress grade: normal Neurovascular Right Right knee neurovascular exam is normal. Pulses - PT: normal Posterior tibial: 2+ Capillary refill: warm and well-perfused Special Signs Right Right knee special signs are normal. Patellar apprehension: none General Constitutional: appears stated age Labored breathing: no Psychiatric: normal mood and affect Neurological: alert Skin: intact Lymphadenopathy: none General additional comments: Pt walks well. Physical Exam Vitals: There is no height or weight on file to calculate BMI. Tobacco Use: Low Risk (11/05/2024) Patient History Smoking Tobacco Use: Never Smokeless Tobacco Use: Never Passive Exposure: Not on file Alcohol Use: Not At Risk (12/01/2023) AUDIT-C Frequency of Alcohol Consumption: Never Average Number of Drinks: Patient does not drink Frequency of Binge Drinking: Never IMAGING: Results Procedures Orders Placed This Encounter Procedures XR knee 1 or 2 views right Order Specific Question: Reason for exam: Answer: PAIN ASSESSMENT: ICD-10-CM 1. Acute pain of right knee M25.561 XR knee 1 or 2 views right 2. History of total right knee replacement Z96.651 3. It band syndrome, right M76.31 methylPREDNISolone (Medrol Dospak) 4 MG tablets : Assessment & Plan 1. Right lateral knee pain. She reports a sensation of catching in her right knee, which she describes as feeling like gravel. However, she does not experience any episodes of the knee locking. The x-ray of her knee replacement shows no signs of loosening or fracture. She exhibits tenderness at the point where the distal IT band inserts and where the soft tissues cross the lateral femoral condyle. There is no tenderness or hyperlaxity in the patella upon manipulation. She has agreed to use topical Voltaren gel and a Medrol Dosepak, with the associated risks and benefits discussed. She is currently undergoing physical therapy, which may incorporate modalities in this area. A distal IT band massage was also suggested. A follow-up appointment will be scheduled in 3 weeks. Follow-up The patient will follow up in 3 weeks. Questions answered in laymen terms at the bedside. The diagnosis, home exercise plan and any ongoing restrictions/ recommendations reviewed. If unable to be reached in office, I recommend evaluation at nearest Emergency Room if any symptoms worsened or new symptoms develop for requiring urgent evaluation. documented in this encounter [facility] 10-29-2024 History of Present illness Narrative Images from the original note were not included. Physical Therapy Progress Visit Patient Name: Vivian Duran Today's Date: 10/29/2024 Encounter Diagnoses Name Primary? 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 Presents to PT with c/c of bilateral low back pain which started couple months ago. Increased back pain while sleeping on side at night. Has increased right hamstring muscle tightness which producing increased knee pain. Pt. Enjoys walking for exercises but is limited due to back pain. Increased right leg pain while walking up steps. Pt. Does has a fear of falling due to right LE weakness and decrease balance. Feeling of unsteadiness on her feet while taking puppy outside. No pain management. No MRI. Precautions: universal Subjective: Reports she is having increased mid back soreness/pain after manual techniques from last PT session. Pain: 2/10 central currently. Objective: PT Evaluation (09/23/24) Lumbar AROM: lumbar ROM grossly decreased 50% in all planes due to pain and muscle tightness Flexibility: moderate hamstring and piriformis muscle tightness bilateral Strength: right LE grossly 4-/5, left LE grossly 4/5, core 4-/5 Treatment: Manual Therapy: (15 minutes ) Pt prone delivered manual ther to LB PA mobs, sacral distractions , STM to reduce pain. Manual stretches to quad and hip ER/IR to improve mobility. IASTM (roller) to R glute and HS to reduce tissue tone. MET Pubic shot gun with R pelvic torsion to improve LE differences. Therapeutic Exercise: (20 min supervised) Guided pt through ther exercises in grid with focus hip strengthening and lumbar mobility; Strength, Endurance, Flexibility, ROM, HEP, Neural Mobilization, Power, and Core Stability Therapeutic Activity: Exercises to improve dynamic activities, functional tasks, functional mobility to return to prior activity level Neuromuscular re-education: (10 minutes) Core stabilization instructed in supine and prone to improve lumbar stabilization. Balance Training, Muscle Facilitation, Dynamic Stability, Core Stabilization, and Blood Flow Restriction Training (BFRT) Modalities: (15 minutes) post session IFC/ MHP to LB to reduce muscle soreness Assessment: Lumbar AROM: lumbar ROM grossly decreased 50% in all planes due to pain and muscle tightness Flexibility: moderate hamstring and piriformis muscle tightness bilateral Strength: right LE grossly 4/5, left LE grossly 4/5, core 4-/5 Pt has participated in 11 PT session with start of POC on 09/23/24 for low back pain. PT treatment continue to help improve back strength/flexibility. Pt. Demonstrates good effort with all ther ex. Little manual PA mobs to lumbar spine today to help decrease SIJ refer pain. Outcome Measure: moderate functional limitations Short Term Goal: To be met in 2 weeks Goal 1: Pt to be instructed in home exercise program. Senior Care Goals: To be met in 10 weeks Goal 1: Pt to report independence and compliance with home program. Goal 2: Pt will report of 2/10 or less low back pain while walk/standing for long periods of time to help improve her functional mobility. Goal 3: Pt. Will demonstrate functional lumbar ROM grossly in all planes to help improve her quality of life. Goal 4: Pt. Will demonstrate normal LE muscle flexibility to help decrease back pain to improve her quality of life. Goal 5: Pt. Will demonstrate 5/5 core strength to allow her to walk/stand for long periods of time to help improve her functional mobility. Pt will benefit from skilled PT for 2x/week from 09/23/24 to 12/02/24 to address the above impairments. I hereby deem this POC medically necessary. Please sign below. Date: documented in this encounter [facility] 10-28-2024 Telephone encounter Note Refills sent. [facility] 10-28-2024 Miscellaneous Notes Refills sent. documented in this encounter [facility] 10-28-2024 History of Present illness Narrative Subjective Patient ID: Vivian Duran is a 74 y.o. female who presents for possible uti HPI Review of Systems Objective Physical Exam Assessment/Plan documented in this encounter [facility] 10-22-2024 Telephone encounter Note Pt notified [facility] 10-22-2024 Miscellaneous Notes Pt notified We received your sleep study report, let Vivian know I would recommend to leave the auto-titrating CPAP alone. Her pressure only titrated to 7 which is fairly low and the auto can easily manage that. documented in this encounter [facility] 10-22-2024 Telephone encounter Note We received your sleep study report, let Vivian know I would recommend to leave the auto-titrating CPAP alone. Her pressure only titrated to 7 which is fairly low and the auto can easily manage that. [facility] 10-16-2024 History of Present illness Narrative Lesions: Location: each breast Duration: months Quality: itchy Modifying factors: rubs on clothing Associated symptoms: rough, tender Treatments: moisturizer Lesion # 2: Location: left hip Duration: days Quality: itchy Modifying factors: rubs on clothing Associated symptoms: rough, scaly Treatments: moisturizer Lesion # 3: Location: back Duration: months Quality: denies pain, denies bleeding Modifying factors: aggravated by picking Associated symptoms: rough, scaly Treatments: none Established patient All pertinent medical history, medications, and allergies were reviewed. General Exam: alert, oriented to person, place, and time, normal affect, well appearing Unaccompanied A focused exam completed based on patient reported problems, see below: 1. Other atopic dermatitis Left Breast, Left Inguinal Area, Right Breast Scaly erythematous plaques +/- dyspigmentation, lichenification, excoriations. Flaring today Atopic dermatitis vs porokeratosis. Discussed that atopic dermatitis is a chronic condition that can be controlled but not cured. Start Fluocinonide bid prn when flared, hold if smooth/asymptomatic. Encouraged daily moisturizing and gentle cleansers to prevent flares. Notify office if flaring despite treatment. Follow up in 1 month. Related Medications fluocinonide (Lidex) 0.05 % cream Apply to rash up to twice a day when flared, do not use one the face, groin, or underarms, 30 day supply 2. Inflamed seborrheic keratosis (4) Left Lower Back (2), Right Upper Back (2) Inflamed seborrheic keratoses: pink and brown stuck on verrucous scaly papule with surrounding erythema and bloody crust. The patient was informed that symptomatic seborrheic keratoses are benign growths that become inflamed, itchy, tender, traumatized, caught on clothing, or bleed. Symptomatic lesions can be treated with cryotherapy or curretage. Thicker lesions treated with cryotherapy may require more than one treatment. The patient was instructed to notify the office if abnormal redness or tenderness develops at the treatment site. Cryotherapy today, see procedure note. Diagnosis: Inflamed seborrheic keratosis Indication: Inflamed Consent: Verbal consent was obtained and risks were discussed, including, but not limited to risks of scarring, darker or medical file clerk pigmentary changes, recurrence, incomplete removal and infection. Method: Liquid nitrogen was used to treat the lesion(s) with two 5-10 second freeze-thaw cycles Number of lesions treated: 4 Post-procedure instructions: Instructions were given orally and in writing. The office will be contacted if the lesion fails to resolve despite treatment, or if a side effect develops such as abnormal crusting, scabbing, redness or tenderness Cryotherapy, skin lesion - Left Lower Back (2), Right Upper Back (2) Next Visit: 1 month documented in this encounter [facility] 10-14-2024 History of Present illness Narrative Images from the original note were not included. Vivian Duran is a 74 y.o. female presents with chief complaint of URI HPI: Patient is here for sx of sinus pain, postnasal drainage, cough, and left ear sensitivity that started last week. Has been taking mucinex, lozenges, and cold/flu medication. History of Present Illness The patient presents for evaluation of thick mucus. She reports a persistent issue with thick mucus, which she had previously discussed with Dr. Remy during her last visit. Despite being prescribed Mucinex, she experienced only one day of relief. The condition has since evolved into a sinus infection, characterized by pain on the left side of her head when leaning over, drainage, and coughing. The mucus is described as thick and yellow, with a recent episode of coughing up blood-tinged mucus. She also reports fatigue and photophobia. Her cough is not constant but produces the aforementioned symptoms when it occurs. She uses a CPAP machine with a humidifier and has no known allergies. She expresses concern about potential exposure to her brother, who has emphysema and is on oxygen therapy 30/04. ALLERGIES The patient has no known allergies. MEDICATIONS Current: Mucinex SUBJECTIVE: MEDICATIONS: ALLERGIES Current Outpatient Medications Medication Instructions amoxicillin (Amoxil) 500 MG tablet 4 tabs PO once 30-60 mins before procedure with food atorvastatin (LIPITOR) 10 mg, Oral, Daily Blood Glucose Monitoring Suppl (Pure[employer] Verio Reflect) w/Device kit clotrimazole (Lotrimin) 1 % cream Cranberry 425 MG capsule Farxiga 10 mg, Oral, Daily fluticasone (Flonase) 50 MCG/ACT nasal spray USE 1 SPRAY IN BOTH NOSTRILS ONCE DAILY furosemide (LASIX) 20 mg, Oral, Daily V-Gpjfonkusqlq-Jbahw-B12-B6 (Metanx) 3-90.314-2-35 MG capsule TAKE 1 CAPSULE BY MOUTH TWO TIMES A DAY DIRECTED Lancets ([email or web address] Delica Plus [id number]) [facility] [place] USE AND DISCARD 1 LANCET FINGERSTICK DAILY lisinopril 2.5 mg, Oral, Daily metFORMIN (GLUCOPHAGE) 500 mg, Oral, 2 times daily with meals Multiple Vitamins-Minerals (Womens Multi Vitamin & Mineral) tablet OneTouch Verio test strip FINGERSTICK DAILY. 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 Carpal tunnel syndrome Cholecystitis 1994 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 CKD (chronic kidney disease), stage III (HCC) ([facility]) Colon polyps 2013 Decreased hearing of both ears Diabetes ([facility]) Disease of thyroid gland ([facility]) DUB (dysfunctional uterine bleeding) ETD (Eustachian tube dysfunction), bilateral Frozen shoulder GERD (gastroesophageal reflux disease) Headache Headache, tension-type of and on HTN (hypertension) ([facility]) Hyperlipidemia ([facility]) Intervertebral disc disorder with myelopathy, cervical region 04/05/2009 Nasal drainage Neuropathy in diabetes ([facility]) past 2 to 3 yrs Obesity Personal history of other medical treatment herniated disc Pressure sensation in both ears Rotator cuff syndrome Rotator cuff tear, right Sleep apnea Tear of meniscus of knee Trigger finger Urinary tract infection Social History Tobacco Use Smoking status: Never Smokeless tobacco: Never Tobacco comments: never used it Vaping Use Vaping status: Never Used Substance Use Topics Alcohol use: Not Currently Comment: occasional glass of wine - 1 maybe in 6 mo. Drug use: Never Past Surgical History: Procedure Laterality Date ANTERIOR CERVICAL DISCECTOMY W/ FUSION CARPAL TUNNEL RELEASE Right CARPAL TUNNEL RELEASE Left 06/05/2017 CARPAL TUNNEL RELEASE Right 07/23/2018 CATARACT EXTRACTION 11/2019 CAUDAL INJECTION 2009 3 CHOLECYSTECTOMY COLONOSCOPY 2009 COLONOSCOPY 2004 neg COLONOSCOPY W/ POLYPECTOMY 2013 COLONOSCOPY W/ POLYPECTOMY 07/2020 CT ANGIOGRAM HEART CORONARY 09/19/2022 CT ANGIOGRAM HEART CORONARY 09/19/2022 DILATION AND CURETTAGE 1989 2 ESOPHAGOSCOPY / EGD 2013 ESOPHAGOSCOPY / EGD 07/2020 with bx JOINT REPLACEMENT KNEE SURGERY Left 2005 arhtrocsopy KNEE SURGERY Left 2001 scope KNEE SURGERY Left 06/02/2014 STEF LASER LAPAROSCOPY 1995 x2 OTHER SURGICAL HISTORY 2012 ACD/ACF OTHER SURGICAL HISTORY 2005 TVT-O ROTATOR CUFF REPAIR Right 2013 ROTATOR CUFF REPAIR Left 2011 SPINE SURGERY TOTAL ABDOMINAL HYSTERECTOMY W/ BILATERAL SALPINGOOPHORECTOMY 1994 TOTAL KNEE ARTHROPLASTY Left 01/27/2014 TRIGGER FINGER RELEASE Right 2011 TRIGGER FINGER RELEASE Right VAGINAL DELIVERY REVIEW OF SYMPTOMS: Review of Systems Constitutional: Positive for fatigue. Negative for fever. HENT: Positive for congestion, rhinorrhea, sinus pain and sore throat. Respiratory: Positive for cough, shortness of breath and wheezing. Cardiovascular: Negative for chest pain, palpitations and leg swelling. Gastrointestinal: Negative for abdominal pain. All other systems reviewed and are negative. OBJECTIVE: Vitals: 10/14/24 1102 BP: 132/84 Pulse: 96 Temp: 96.8 F SpO2: 96% Physical Exam Vitals and nursing note reviewed. Constitutional: Appearance: Normal appearance. HENT: Head: Normocephalic and atraumatic. Right Ear: A middle ear effusion is present. Left Ear: A middle ear effusion is present. Nose: Congestion present. Right Turbinates: Swollen. Left Turbinates: Swollen. Right Sinus: Maxillary sinus tenderness present. Left Sinus: Maxillary sinus tenderness present. Mouth/Throat: Pharynx: Uvula midline. Posterior oropharyngeal erythema present. Eyes: Extraocular Movements: Extraocular movements intact. Pupils: Pupils are equal, round, and reactive to light. Cardiovascular: Rate and Rhythm: Normal rate and regular rhythm. Heart sounds: Normal heart sounds, S1 normal and S2 normal. Pulmonary: Effort: Pulmonary effort is normal. Breath sounds: Normal breath sounds. Musculoskeletal: Cervical back: Normal range of motion. Lymphadenopathy: Cervical: No cervical adenopathy. Skin: Capillary Refill: Capillary refill takes less than 2 seconds. Neurological: Mental Status: She is alert and oriented to person, place, and time. ASSESSMENT AND PLAN: Assessment/Plan Diagnoses and all orders for this visit: Acute non-recurrent pansinusitis - amoxicillin-clavulanate (Augmentin) 875-125 MG tablet; Take 1 tablet (875 mg) by mouth in the morning and 1 tablet (875 mg) before bedtime. Do all this for 10 days. Take antibiotics as prescribed, do not stop early. May take tylenol/motrin OTC prn for pain/fever. Increase oral intake of fluids to thin secretions. Saline nasal spray. May use throat lozenges and warm salt water gargles to alleviate sore throat. Humidified air. If symptoms do not improve in 48 hrs after starting antibiotics instructed patient to come to office for further evaluation. Cough, unspecified type - STATUS COVID-19/FLU Nasal congestion - STATUS COVID-19/FLU No follow-ups on file. documented in this encounter [facility] 10-13-2024 Telephone encounter Note She called noting she is ill and will not be coming to PT tomorrow. I reminded and she said she plans to be here Sunday, 10/17; she said she'll call if unable. [facility] 10-13-2024 Miscellaneous Notes She called noting she is ill and will not be coming to PT tomorrow. I reminded and she said she plans to be here Sunday, 10/17; she said she'll call if unable. documented in this encounter [facility] 10-03-2024 History of Present illness Narrative Images from the original note were not included. Physical Therapy Treatment Visit Patient Name: Vivian Duran Today's Date: 10/03/2024 Encounter Diagnoses Name Primary? Chronic midline low back pain without sciatica Yes DDD (degenerative disc disease), thoracic Degeneration of intervertebral disc of lumbar region, unspecified whether pain present Visit number: 3 Timed Code Treatment Minutes: 26 minutes Total Treatment Time: 36 minutes Time In: 1300 Time Out: 1342 History: Pt. Presents to PT with c/c of bilateral low back pain which started couple months ago. Increased back pain while sleeping on side at night. Has increased right hamstring muscle tightness which producing increased knee pain. Pt. Enjoys walking for exercises but is limited due to back pain. Increased right leg pain while walking up steps. Pt. Does has a fear of falling due to right LE weakness and decrease balance. Feeling of unsteadiness on her feet while taking puppy outside. No pain management. No MRI. Precautions: universal Subjective: Pt states she does not believe she is getting better at all. States she continue with pain and sx's in the outside of her right lower leg. Has not been doing exercises at home due to being busy with holidays. Pain: 5/10 depending on her activity Objective: PT Evaluation (09/23/24) Lumbar AROM: lumbar ROM grossly decreased 50% in all planes due to pain and muscle tightness Flexibility: moderate hamstring and piriformis muscle tightness bilateral Strength: right LE grossly 4-/5, left LE grossly 4/5, core 4-/5 Treatment: Education: HEP education with demonstration, Educated on Eval Findings and POC Manual Therapy: () MF, STM/DTM, MET for LLD. Passive ROM, Joint mobilization, Soft Tissue Mobilization, Myofascial Release, Muscle Energy Technique, Neural Mobilization, Myofascial Cupping, Dry Needling, IASTM, and Scar mobilization Therapeutic Exercise: (26 minutes) exercises in grid with focus on core strengthening; Strength, Endurance, Flexibility, ROM, HEP, Neural Mobilization, Power, and Core Stability Therapeutic Activity: Exercises to improve dynamic activities, functional tasks, functional mobility to return to prior activity level Neuromuscular re-education: Balance Training, Muscle Facilitation, Dynamic Stability, Core Stabilization, and Blood Flow Restriction Training (BFRT) Modalities: (10 minutes) MHP to low back sitting before treatment; Heat, Ice, Electrical Stimulation, Ultrasound, Cervical Mechanical Traction, Lumbar Mechanical Traction, Iontophoresis, and Fluidotherapy Assessment: Pt has participated in 3 PT session with start of POC on 09/23/24 for low back pain. Progressed core stabilization exercises this date due to pt reporting no change in sx's. Encouraged participation with HEP; pt voiced good understanding. Will continue to monitor sx's and treat appropriately. Outcome Measure: moderate functional limitations Short Term Goal: To be met in 2 weeks Goal 1: Pt to be instructed in home exercise program. Senior Care Goals: To be met in 10 weeks Goal 1: Pt to report independence and compliance with home program. Goal 2: Pt will report of 2/10 or less low back pain while walk/standing for long periods of time to help improve her functional mobility. Goal 3: Pt. Will demonstrate functional lumbar ROM grossly in all planes to help improve her quality of life. Goal 4: Pt. Will demonstrate normal LE muscle flexibility to help decrease back pain to improve her quality of life. Goal 5: Pt. Will demonstrate 5/5 core strength to allow her to walk/stand for long periods of time to help improve her functional mobility. Pt will benefit from skilled PT for 2x/week from 09/23/24 to 12/02/24 to address the above impairments. I hereby deem this POC medically necessary. Please sign below. Date: documented in this encounter [facility] 09-16-2024 Telephone encounter Note She contacted and scheduled Eval 09/23 and PT on 09/26/24. Notified of copay. [facility] 09-16-2024 Miscellaneous Notes She contacted and scheduled Eval 09/23 and PT on 09/26/24. Notified of copay. Tried to contact to schedule PT Eval for LBP, but had to lm requesting a call back. $30.00 copay / med nec documented in this encounter [facility] 09-16-2024 Telephone encounter Note Tried to contact to schedule PT Eval for LBP, but had to lm requesting a call back. $30.00 copay / med nec [facility] 09-16-2024 History of Present illness Narrative Images from the original note were not included. Vivian Duran is a 74 y.o. female presents with chief complaint of Follow-up (DM follow up. Also mid and lower back pain over the past 6 months with right leg pain. Patient would like MRI. ) HPI: HPI History of Present Illness The patient is a 74-year-old female who presents for evaluation of sinus issues, diabetes, back pain, and vitamin D deficiency. She reports experiencing sinus-related symptoms, including thick nasal drainage and occasional nosebleeds. She has been consuming hot coffee in the mornings to alleviate these symptoms. She is uncertain about the presence of fever. Her blood glucose levels have been well-controlled, although she expresses uncertainty about whether they meet the desired target. She is currently on Januvia, which was recently refilled, and anticipates needing a new prescription at the beginning of the year due to impending changes in her insurance coverage. She has a long-standing history of back issues, which have escalated in severity over the past 1.5 to 2 months. She has been experiencing spasms in her back and consulted Dr. Gabriel, who suggested that these spasms could be affecting her intestines. She also reports an episode of abdominal discomfort, which was relieved following a bowel movement. She has been receiving chiropractic treatment up to three times a week without significant improvement. Initially, the pain was localized to the sacroiliac joint, but it has since spread across her lower back, causing difficulty in maintaining an upright posture and a lack of stability when outdoors. She has previously undergone physical therapy for her back pain, which was ineffective. She also reports pain radiating from her right shoulder down her spine, which has been managed with Biofreeze application. She underwent dry needling therapy in 2019, which did not provide relief. She experiences more pain on the right side, which occasionally affects her left side. She reports no issues with forward bending but notes that rotation and leaning back exacerbate her back pain. She has a known vitamin D deficiency, as indicated by her blood work. She was advised to discontinue calcium supplementation, which she has done. MEDICATIONS Januvia SUBJECTIVE: MEDICATIONS: Current Outpatient Medications Medication Instructions amoxicillin (Amoxil) 500 MG tablet 4 tabs PO once 30-60 mins before procedure with food atorvastatin (LIPITOR) 10 mg, Oral, Daily Blood Glucose Monitoring Suppl ([email or web address] Verio Reflect) w/Device kit clotrimazole (Lotrimin) 1 % cream Cranberry 425 MG capsule Farxiga 10 mg, Oral, Daily fluticasone (Flonase) 50 MCG/ACT nasal spray USE 1 SPRAY IN BOTH NOSTRILS ONCE DAILY furosemide (LASIX) 20 mg, Oral, Daily S-Atrfohnkqtxm-Vvesi-B12-B6 (Metanx) 3-90.314-2-35 MG capsule TAKE 1 CAPSULE BY MOUTH TWO TIMES A DAY DIRECTED Lancets (OneTouch Delica Plus [id number]) misc USE AND DISCARD 1 LANCET FINGERSTICK DAILY lisinopril 2.5 mg, Oral, Daily metFORMIN (GLUCOPHAGE) 500 mg, Oral, 2 times daily with meals Multiple Vitamins-Minerals (Womens Multi Vitamin & Mineral) tablet OneTouch Verio test strip FINGERSTICK DAILY. oxybutynin XL (Ditropan-XL) 15 MG 24 hr tablet Take 1 tablet by mouth once a day SITagliptin (JANUVIA) 50 mg, Oral, Daily Synthroid 100 mcg, Oral, Daily I have reviewed and reconciled the history and medication list with the patient today. REVIEW OF SYMPTOMS: Review of Systems OBJECTIVE: Visit Vitals BP 126/68 Pulse 80 Ht 5' 8 Wt 206 lb 3.2 oz SpO2 97% BMI 31.35 kg/m OB Status Hysterectomy Smoking Status Never BSA 2.12 m Physical Exam Vitals and nursing note reviewed. Constitutional: Appearance: Normal appearance. HENT: Head: Normocephalic and atraumatic. Right Ear: Tympanic membrane normal. Left Ear: Tympanic membrane normal. Nose: Nose normal. Mouth/Throat: Mouth: Mucous membranes are moist. Pharynx: Posterior oropharyngeal erythema present. Cardiovascular: Rate and Rhythm: Normal rate and regular rhythm. Pulses: Normal pulses. Heart sounds: Normal heart sounds. Pulmonary: Effort: Pulmonary effort is normal. Breath sounds: Normal breath sounds. Musculoskeletal: Cervical back: Normal range of motion and neck supple. Lumbar back: No swelling, edema, deformity, signs of trauma, lacerations, spasms, tenderness or bony tenderness. Normal range of motion. Positive left straight leg raise test. Negative right straight leg raise test. No scoliosis. Comments: Area of SI joint appears to be the usual source of pain but not able to induce pain today. Skin: General: Skin is warm and dry. Neurological: Mental Status: She is alert. ASSESSMENT AND PLAN: Assessment & Plan 1. Sinus issues. There is no evidence of infection, but there are signs of drainage and irritation down the back of the throat. Mucinex (guaifenesin) is recommended to help loosen and expel the thick mucus. Antibiotics are not deemed necessary at this point. 2. Diabetes mellitus. Her A1c level has improved from 7.4 to 6.7. She will continue her current medication regimen, including Januvia. She will inform the office if she needs a new prescription due to upcoming insurance changes. 3. Back pain. She has degenerative disc disease and arthritis in both the thoracic and lumbar spines, with some shifting noted in 2020. The pain appears to be localized in the SI joints and the joints between the spine and pelvis. She has previously undergone physical therapy, but it has been 4 years since the last session. A referral for physical therapy will be made to address her back pain. If her condition does not improve with PT, an MRI may be considered sooner. Surgical intervention is not anticipated at this time. 4. Vitamin D deficiency. She has a known vitamin D deficiency, as indicated by her blood work. She was advised to discontinue calcium supplementation, which she has done. Assessment/Plan Problem List Items Addressed This Visit None Visit Diagnoses Encounter for screening mammogram for malignant neoplasm of breast - Primary Relevant Orders Bilateral screening mammogram with tomosynthesis Type 2 diabetes mellitus with diabetic polyneuropathy, without long-term current use of insulin ([facility]) Relevant Orders POCT Glycated hemoglobin, total (Completed) Chronic midline low back pain without sciatica Relevant Orders Ambulatory referral to Physical Therapy Sinus congestion Relevant Medications guaiFENesin (Mucinex) 600 MG 12 hr tablet documented in this encounter [facility] 09-02-2024 Telephone encounter Note Patient left a vm inquiring if you have seen the message from her on my chart and a fax from Dr. Ruff. She would like a call to discuss what is next. Ty [facility] 09-02-2024 Miscellaneous Notes Patient left a vm inquiring if you have seen the message from her on my chart and a fax from Dr. Ruff. She would like a call to discuss what is next. Ty documented in this encounter [facility] 08-22-2024 Telephone encounter Note Refills sent. [facility] 08-22-2024 Miscellaneous Notes Refills sent. documented in this encounter [facility] 08-20-2024 Telephone encounter Note Pt scheduled for 09/16/24 [facility] 08-20-2024 Miscellaneous Notes Pt scheduled for 09/16/24 Approving, but needs appt for additional refills. Patient called today and states the Januvia prescription was sent to her mail in Pharmacy and she needs it to go to [facility] in [place], she only has a couple left. Ty documented in this encounter [facility] 08-15-2024 Telephone encounter Note Approving, but needs appt for additional refills. [facility] 08-15-2024 Telephone encounter Note Patient called today and states the Januvia prescription was sent to her mail in Pharmacy and she needs it to go to [facility] in [place], she only has a couple left. Ty [facility] 08-08-2024 Telephone encounter Note Pt states farxiga medication went up in [place] 403.41 90 days Pt is asking if there is another medication that is the same with less cost. [facility] 08-08-2024 Miscellaneous Notes Pt states farxiga medication went up in [place] 403.41 90 days Pt is asking if there is another medication that is the same with less cost. documented in this encounter [facility] 08-06-2024 Telephone encounter Note Patient has an appt scheduled with Dr. Arie Walton on . they need all her testing, ultrasound, echo, labs and why she is having the testing with Dr. Sargent. Thank you. [facility] 08-06-2024 Miscellaneous Notes Patient has an appt scheduled with Dr. Arie Walton on . they need all her testing, ultrasound, echo, labs and why she is having the testing with Dr. Sargent. Thank you. documented in this encounter [facility] 08-05-2024 Telephone encounter Note Refills sent. [facility] 08-05-2024 Miscellaneous Notes Refills sent. documented in this encounter [facility] 07-28-2024 Telephone encounter Note Refills sent. [facility] 07-28-2024 Miscellaneous Notes Refills sent. documented in this encounter [facility] 07-21-2024 History of Present illness Narrative Skin Check Location: Patient requests [...] year, skin check documented in this encounter [facility] 07-03-2024 History of Present illness Narrative Images from the original note were not included. Vivian Duran is a 73 y.o. female presents with chief complaint of No chief complaint on file. HPI: Discuss US, Memory test, neurology test, blood test for pancreas. She is pleaed with her report from the neuropsych. She is surprised but happy. She had already instituted some of his recommendations. She is having pain in the right side that wraps around the side. She occasionally experiences a sensation of a bubble in the throat when eating or swallowing. Makes it difficult to breathe or swallow until it passes. Took pepcid in the past. SUBJECTIVE: MEDICATIONS: Current Outpatient Medications Medication Instructions amoxicillin (Amoxil) 500 MG tablet 4 tabs PO once 30-60 mins before procedure with food atorvastatin (LIPITOR) 10 mg, Oral, Daily Blood Glucose Monitoring Suppl (Modern FeedTouch Verio Reflect) w/Device kit Calcium Carb-Cholecalciferol 600-10 MG-MCG tablet 1 tablet clotrimazole (Lotrimin) 1 % cream Cranberry 425 MG capsule Farxiga 10 mg, Oral, Daily fluticasone (Flonase) 50 MCG/ACT nasal spray USE 1 SPRAY IN BOTH NOSTRILS ONCE DAILY furosemide (LASIX) 20 mg, Oral, Daily glucose blood (Modern FeedTouch Verio) test strip FINGERSTICK DAILY. G-Agobctpdsaqc-Pqxsc-B12-B6 (Metanx) 3-90.314-2-35 MG capsule TAKE 1 CAPSULE BY MOUTH TWO TIMES A DAY DIRECTED Lancets (Modern FeedTouch Delica Plus [id number]) [facility] USE AND DISCARD 1 LANCET FINGERSTICK DAILY levothyroxine (SYNTHROID, LEVOXYL) 100 mcg, Oral, Daily lisinopril 2.5 mg, Oral, Daily metFORMIN (GLUCOPHAGE) 500 mg, Oral, 2 times daily with meals Multiple Vitamins-Minerals (Womens Multi Vitamin & Mineral) tablet oxybutynin XL (Ditropan-XL) 15 MG 24 hr tablet Take 1 tablet by mouth once a day SITagliptin (JANUVIA) 50 mg, Oral, Daily I have reviewed and reconciled the history and medication list with the patient today. REVIEW OF SYMPTOMS: Review of Systems All other systems reviewed and are negative. OBJECTIVE: Visit Vitals BP 116/66 Pulse 85 Ht 5' 8 Wt 205 lb 6.4 oz SpO2 96% BMI 31.23 kg/m OB Status Hysterectomy Smoking Status Never BSA 2.11 m Physical Exam Vitals and nursing note reviewed. Constitutional: Appearance: Normal appearance. Cardiovascular: Rate and Rhythm: Normal rate and regular rhythm. Pulses: Normal pulses. Heart sounds: Normal heart sounds. Musculoskeletal: Cervical back: Normal range of motion and neck supple. Skin: General: Skin is warm and dry. Neurological: General: No focal deficit present. Mental Status: She is alert. Psychiatric: Mood and Affect: Mood normal. ASSESSMENT AND PLAN: 1. Portal Venous Hypertension. The ultrasound results suggest portal venous congestion or portal venous hypertension. This condition can be associated with congestive heart failure. An echocardiogram will be scheduled to evaluate heart function. If the echocardiogram results are normal, a referral to a bullet assembly press operator may be made for further evaluation. Assessment/Plan Problem List Items Addressed This Visit None Visit Diagnoses Portal venous hypertension (CMS/HCC) - Primary Relevant Orders Echocardiogram 2D complete Encounter for immunization Relevant Orders COVID-19, MRNA, LNP-S, PF, ANNITA-SUCROSE, 30MCG/0.3ML CVX 309 [[id number]], Comirnaty (Completed) Dysphagia, unspecified type Memory loss Consult reviewed in detail with her. RUQ pain Will decide on further work up after the echo done. I personally spent over half of a total 30 minutes face to face with the patient in counseling and discussion and/or coordination of care as described above. documented in this encounter [facility] 06-17-2024 History of Present illness Narrative Images from the original note were not included. Neuropsychology Ivan Patton, PhD NEUROPSYCHOLOGICAL EVALUATION Vivian Duran is a 73 y.o. female referred for neuropsychological evaluation to assist with facilitating and informing medical differential diagnosis and clinical decision-making. The following information was obtained during an interview with the patient, as well as review of available records. PRESENTING PROBLEM: Mild occasional daily forgetfulness that is not functionally impairing. Usually associated with stress and/or fatigue. Otherwise, remains independent in ADLs, housework, medication, and driving. manages finances as before. Physically active. Remains socially engaged. Also very involved with her mu-ism. Fluctuating sleep quality due to back pain and discomfort. Uses CPAP nightly. Continues to feel very fatigued throughout the day. No prior neurological history. 03/24/[address] with no acute intracranial abnormality. April 2024 cognitive screening reported as . Patient vividly recalled the assessment as well as results in detail. Family neurological history includes dementia (father). Psychiatric history notable for situational depression episodes. No history of alcohol/substance abuse or smoking. [place] language Frisian. Completed high school education as well as some college. 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 Reside with of 52 years. They have three children. MEDICAL HISTORY/MEDICATION: MEDICATIONS: Current Outpatient Medications Medication Instructions amoxicillin (Amoxil) 500 MG tablet 4 tabs PO once 30-60 mins before procedure with food atorvastatin (LIPITOR) 10 mg, Oral, Daily Blood Glucose Monitoring Suppl (Modern FeedTouch Verio Reflect) w/Device kit Calcium Carb-Cholecalciferol 600-10 MG-MCG tablet 1 tablet Cranberry 425 MG capsule Farxiga 10 mg, Oral, Daily fluticasone (Flonase) 50 MCG/ACT nasal spray USE 1 SPRAY IN BOTH NOSTRILS ONCE DAILY furosemide (LASIX) 20 mg, Oral, Daily glucose blood (Modern FeedTouch Verio) test strip FINGERSTICK DAILY. Z-Ixrftkdutali-Abwux-B12-B6 (Metanx) 3-90.314-2-35 MG capsule TAKE 1 CAPSULE BY MOUTH TWO TIMES A DAY DIRECTED Lancets (Modern FeedTouch Delica Plus [id number]) misc USE AND DISCARD 1 LANCET FINGERSTICK DAILY levothyroxine (SYNTHROID, LEVOXYL) 100 mcg, Oral, Daily lisinopril 2.5 mg, Oral, Daily metFORMIN (GLUCOPHAGE) 500 mg, Oral, 2 times daily with meals Multiple Vitamins-Minerals (Womens Multi Vitamin & Mineral) tablet oxybutynin XL (Ditropan-XL) 15 MG 24 hr tablet Take 1 tablet by mouth once a day SITagliptin (JANUVIA) 50 mg, Oral, Daily ASSESSMENT: Presented to appointment on time, alert, and Ox3. Rapport easily established. Good eye contact. Socially appropriate during conversation and testing. Hearing adequate for current purposes. Ambulated independently. Purpose for current evaluation explained and patient agreed to participate. Overall appeared to put forth good effort. Vision/Visuoconstruction: Binocular near-point visual acuity 20/20. Visual schwab full to confrontation. Visuoconstruction 35th %ile. Nonverbal abstract reasoning 90th %ile. Copy of a complex geometric design >16th %ile. Motor/Speed of Processing: Right-handed. Marketing Operations Associate strength 31st %ile with right-hand, 34th %ile with left. Speeded graphomotor transcoding 38th %ile. Attention/Working Memory: Auditory attention/working memory 16th %ile (5 digits forward, 5 digits backward, 5 digits during sequencing). Speeded visual scanning/attention 34th %ile. Speeded visual divided attention 31st %ile. Speech/Language: Expressive speech fluent and absent of paraphasic errors. Comprehension adequate for current purposes. Single-word reading 23rd %ile. Generative naming to phonemic cues 8th %ile, 10th %ile to semantic cues. Confrontation naming 58th %ile. Verbal abstract reasoning 7th %ile. Learning and Memory: Learning of a word list 50th %ile (2-9-36-10-11), delayed recall 50th %ile. Recognition discriminability 31st %ile. Forced-choice 15/16. Immediate recall for prose passages 16th %ile, delayed 27th %ile. Recognition 3-9th %ile. Immediate recall for a variety of geometric figures 62nd %ile, delayed 24th %ile. Recognition 51-75th %ile. Overall auditory memory 27th %ile, visual 38th %ile. Overall immediate memory 35th %ile, delayed 27th %ile. Executive Functioning: Novel problem-solving and cognitive flexibility >16th %ile, 2/6 categories completed in 64 sorts. Responding absent of significant perseveration. Failed to maintain set x1. Emotional Functioning: Minimal depression and anxiety. Denied any thoughts of self-harm. FINDINGS AND RECOMMENDATIONS: CONCLUSIONS: 1. Estimated low average to average pre-morbid intellectual functioning. 2. Preserved visual acuity without signs of visual field cut or neglect. 3. Preserved bilateral gross motor function. 4. Minimal depression and anxiety. OPINION: Current neuropsychological evaluation demonstrates well-preserved cognition and memory. There is no evidence of a neurodegenerative condition or other organic etiology. Findings are completely normal for her age. Minimal psychiatric contribution. Trivial occasional forgetfulness is most likely associated with stress and fatigue. RECOMMENDATIONS: Results and recommendations forwarded to treating physician for review during their next appointment. Patient encouraged to contact this office with any additional questions. No activity restrictions from a cognitive standpoint. Improved sleep quality. Memory strategies: Regularly and frequently review information that must be remembered. Link new information in as many ways as possible to already known information. This strategy creates several avenues for remembering the information later. Utilize external memory sources such as lists, date books, calendars, and pocket-size recorders for information that must be remembered. A smartphone is a useful tool in consolidating all this information into one source. Active listening, such as repeating and summarizing information back to presenter when learning important information for future recall may be beneficial as opposed to simply passive listening. Establish a consistent structured routine. Continued regular physical activity for stress relief, improved cognitive efficiency, and optimal sleep. Attempt new hobbies and skills, keep learning. Proper nutritional intake, such as Mediterranean-style diet, while paying close attention to food sourcing. No need for neuropsychological re-evaluation at this time. Results may be used as a baseline point of comparison should there be concern for future cognitive decline. Thank you for allowing me to participate in the care of this individual. Please contact me with any questions at [phone]. documented in this encounter [facility] 06-16-2024 Telephone encounter Note Pt started Genuvia and is asking if or what medication she should be stopping . Would like a call regarding this today - ty ! [phone] [facility] 06-16-2024 Miscellaneous Notes Pt started Genuvia and is asking if or what medication she should be stopping . Would like a call regarding this today - ty ! [phone] documented in this encounter [facility] 06-13-2024 History of Present illness Narrative Images from the original note were not included. Vivian Duran is a 73 y.o. female presents with chief complaint of Diabetes HPI: Patient is here for diabetes check up. Does take readings daily before she eats between 6am-8am with this morning being 161. Her average the last two week would be in the 140s-168s. She currently does not exercise but does stay active. Watches sweets, diet is generally healthy. SUBJECTIVE: History of Present Illness The patient presents for evaluation of multiple medical concerns. She is here for a diabetes check. Her blood sugar reading this morning was 161, which she attributes to consuming a Frosty the previous afternoon. She also had cheese and crackers before bed on another occasion when her reading was in the 160s. She is currently taking Farxiga daily and metformin 500 mg twice a day. She has provided a microalbumin sample today. She is considering whether to follow up with me or her neurosurgeon regarding her diabetes management. She is also curious about the suitability of microwave popcorn as an evening snack and whether insulin is used for low or high blood sugar levels. She recently experienced symptoms of a sinus infection, including fluid in her ears and a sore throat. She took antihistamines for a few days, which alleviated these symptoms. However, she experienced sudden dizziness yesterday while turning and noticed a decrease in her hearing earlier in the week. She has been experiencing back pain, which she believes may be due to spinal degeneration. The pain was previously managed through physical therapy, but it has recently returned, affecting her back and right side. She does not have a gallbladder and wonders if the pain could be related to that. She also suspects that sleeping on her back for an extended period may have contributed to the pain. She finds relief from the pain by using Biofreeze. She had a consultation with a neurosurgeon, who advised her to follow up with me. He mentioned that this would provide a good baseline for future reference and suggested she return next year for another evaluation. IMMUNIZATIONS She did not get the last COVID-19 vaccine. MEDICATIONS: ALLERGIES Current Outpatient Medications Medication Instructions amoxicillin (Amoxil) 500 MG tablet 4 tabs PO once 30-60 mins before procedure with food atorvastatin (LIPITOR) 10 mg, Oral, Daily Blood Glucose Monitoring Suppl (OneTrustevuch Verio Reflect) w/Device kit Calcium Carb-Cholecalciferol 600-10 MG-MCG tablet 1 tablet Cranberry 425 MG capsule Farxiga 10 mg, Oral, Daily fluticasone (Flonase) 50 MCG/ACT nasal spray USE 1 SPRAY IN BOTH NOSTRILS ONCE DAILY furosemide (LASIX) 20 mg, Oral, Daily glucose blood (OneTouch Verio) test strip FINGERSTICK DAILY. R-Jppoesdkfoyq-Syihj-B12-B6 (Metanx) 3-90.314-2-35 MG capsule TAKE 1 CAPSULE BY MOUTH TWO TIMES A DAY DIRECTED Lancets (OneTouch Delica Plus [id number]) misc USE AND DISCARD 1 LANCET FINGERSTICK DAILY levothyroxine (SYNTHROID, LEVOXYL) 100 mcg, Oral, Daily lisinopril 2.5 mg, Oral, Daily metFORMIN (GLUCOPHAGE) 500 mg, Oral, 2 times daily with meals Multiple Vitamins-Minerals (Womens Multi Vitamin & Mineral) tablet oxybutynin XL (Ditropan-XL) 15 MG 24 hr tablet Take 1 tablet by mouth once a day Allergies Allergen Reactions Wound Dressing Adhesive Rash PAST MEDICAL HISTORY: SOCIAL HISTORY SURGICAL HISTORY: Past Medical History: Diagnosis Date 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 Carpal tunnel syndrome Cholecystitis 1994 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 CKD (chronic kidney disease), stage III (HCC) (CMS/HCC) Colon polyps 2013 Decreased hearing of both ears Diabetes (CMS/HCC) Disease of thyroid gland (CMS/HCC) DUB (dysfunctional uterine bleeding) ETD (Eustachian tube dysfunction), bilateral Frozen shoulder GERD (gastroesophageal reflux disease) Headache Headache, tension-type of and on HTN (hypertension) (CMS/HCC) Hyperlipidemia (CMS/HCC) Intervertebral disc disorder with myelopathy, cervical region 04/05/2009 Nasal drainage Neuropathy in diabetes ([facility]) past 2 to 3 yrs Obesity Personal history of other medical treatment herniated disc Pressure sensation in both ears Rotator cuff syndrome Rotator cuff tear, right Sleep apnea Tear of meniscus of knee Trigger finger Urinary tract infection Social History Tobacco Use Smoking status: Never Smokeless tobacco: Never Tobacco comments: never used it Vaping Use Vaping status: Never Used Substance Use Topics Alcohol use: Not Currently Comment: occasional glass of wine - 1 maybe in 6 mo. Drug use: Never Past Surgical History: Procedure Laterality Date ANTERIOR CERVICAL DISCECTOMY W/ FUSION CARPAL TUNNEL RELEASE Right CARPAL TUNNEL RELEASE Left 06/05/2017 CARPAL TUNNEL RELEASE Right 07/23/2018 CATARACT EXTRACTION 11/2019 CAUDAL INJECTION 2009 3 CHOLECYSTECTOMY COLONOSCOPY 2009 COLONOSCOPY 2004 neg COLONOSCOPY W/ POLYPECTOMY 2013 COLONOSCOPY W/ POLYPECTOMY 07/2020 CT ANGIOGRAM HEART CORONARY 09/19/2022 CT ANGIOGRAM HEART CORONARY 09/19/2022 DILATION AND CURETTAGE 1989 2 ESOPHAGOSCOPY / EGD 2013 ESOPHAGOSCOPY / EGD 07/2020 with bx JOINT REPLACEMENT KNEE SURGERY Left 2005 arhtrocsopy KNEE SURGERY Left 2001 scope KNEE SURGERY Left 06/02/2014 STEF LASER LAPAROSCOPY 1994 x2 OTHER SURGICAL HISTORY 2012 ACD/ACF OTHER SURGICAL HISTORY 2005 TVT-O ROTATOR CUFF REPAIR Right 2013 ROTATOR CUFF REPAIR Left 2011 SPINE SURGERY TOTAL ABDOMINAL HYSTERECTOMY W/ BILATERAL SALPINGOOPHORECTOMY 1995 TOTAL KNEE ARTHROPLASTY Left 01/27/2014 TRIGGER FINGER RELEASE Right 2011 TRIGGER FINGER RELEASE Right VAGINAL DELIVERY REVIEW OF SYMPTOMS: Review of Systems All other systems reviewed and are negative. OBJECTIVE: Vitals: 06/13/24 0902 BP: 126/72 Pulse: 93 Temp: 97.2 F SpO2: 96% Physical Exam ASSESSMENT AND PLAN: Assessment & Plan 1. Diabetes Mellitus. Her fasting blood sugar levels are elevated, and her A1c has increased from 7.1 in December to 7.4 today, indicating a need for tighter control. Despite satisfactory GFR, an increase in metformin dosage is not preferred. A DPP-4 inhibitor, such as Januvia, will be initiated. If this proves ineffective, an injectable medication may be considered, depending on insurance coverage. She is advised to continue with Farxiga for renal protection. A microalbumin test was conducted today. She is encouraged to monitor her diet more closely, opting for healthier snacks like microwave popcorn instead of high-sugar or high-fat options. 2. Musculoskeletal Back Pain. The pain appears to be musculoskeletal in nature, possibly due to sleeping posture. She is advised to continue using Biofreeze for relief. There is no indication of kidney or gallbladder issues. 3. Health Maintenance. An influenza vaccine will be administered today. She is also advised to receive the latest COVID-19 vaccine, which is available at all pharmacies. Assessment/Plan Problem List Items Addressed This Visit None Visit Diagnoses Type 2 diabetes mellitus with diabetic polyneuropathy, without long-term current use of insulin ([facility]) - Primary Relevant Medications SITagliptin (Januvia) 50 MG tablet Other Relevant Orders POCT glycosylated hemoglobin (Hb A1C) docked device (Completed) Microalbumin / creatinine urine ratio Encounter for immunization Relevant Orders Influenza, high-dose seasonal, quadrivalent, PF (LXG199) (Fluzone High Dose [place] 0.7mL dose) (Completed) No follow-ups on file. documented in this encounter [facility] 06-02-2024 History of Present illness Narrative Images from the original note were not included. Ivan Patton, PhD NEUROBEHAVIORAL STATUS EXAMINATION Vivian Duran is a 73 y.o. female referred for neuropsychological evaluation to assist with facilitating and informing medical differential diagnosis and clinical decision-making. The following information was obtained during an interview with the patient, as well as review of available records. PRESENTING PROBLEM AND HISTORY Mild occasional daily forgetfulness that is not functionally impairing usually associated with stress and/or fatigue. Otherwise, remains independent in ADLs, housework, medication, and driving. manages finances as before. Physically active. Remains socially engaged. Also very involved with her mu-ism. Fluctuating sleep quality due to back pain and discomfort. Uses CPAP nightly. Continues to feel very fatigued throughout the day. No prior neurological history. 03/24/[address] with no acute intracranial abnormality. April 2024 cognitive screening reported as . Patient vividly recalled the assessment as well as results in detail. Family neurological history includes dementia (father). Psychiatric history notable for situational depression episodes. No history of alcohol/substance abuse or smoking. [place] language Frisian. Completed high school education as well as some college. 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 Reside with of 52 years. They have three children. 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 CKD (chronic kidney disease), stage III (HCC) (CMS/HCC) Colon polyps 2013 Decreased hearing of both ears Diabetes (CMS/HCC) Disease of thyroid gland (CMS/HCC) DUB (dysfunctional uterine bleeding) ETD (Eustachian tube dysfunction), bilateral GERD (gastroesophageal reflux disease) Headache HTN (hypertension) (CMS/HCC) Hyperlipidemia (CMS/HCC) Intervertebral disc disorder with myelopathy, cervical region 04/05/2009 Nasal drainage Obesity Personal history of other medical treatment herniated disc Pressure sensation in both ears Rotator cuff tear, right Sleep apnea Urinary tract infection MEDICATIONS: Current Outpatient Medications Medication Instructions amoxicillin (Amoxil) 500 MG tablet 4 tabs PO once 30-60 mins before procedure with food atorvastatin (LIPITOR) 10 mg, Oral, Daily Blood Glucose Monitoring Suppl (PureForge Verio Reflect) w/Device kit Calcium Carb-Cholecalciferol 600-10 MG-MCG tablet 1 tablet calcium carbonate 1,500 mg, Oral, Daily Cranberry 425 MG capsule Farxiga 10 mg, Oral, Daily fluticasone (Flonase) 50 MCG/ACT nasal spray USE 1 SPRAY IN BOTH NOSTRILS ONCE DAILY furosemide (LASIX) 20 mg, Oral, Daily glucose blood (OneTouch Verio) test strip FINGERSTICK DAILY. H-Odtwojnzgjoy-Xndum-B12-B6 (Metanx) 3-90.314-2-35 MG capsule TAKE 1 CAPSULE BY MOUTH TWO TIMES A DAY DIRECTED Lancets (OneTouch Delica Plus [id number]) misc USE AND DISCARD 1 LANCET FINGERSTICK DAILY levothyroxine (SYNTHROID, LEVOXYL) 100 mcg, Oral, Daily lisinopril 2.5 mg, Oral, Daily metFORMIN (GLUCOPHAGE) 500 mg, Oral, 2 times daily with meals methylPREDNISolone (Medrol Dospak) 4 MG tablets Follow schedule on package instructions Multiple Vitamins-Minerals (Womens Multi Vitamin & Mineral) tablet oxybutynin XL (Ditropan-XL) 15 MG 24 hr tablet Take 1 tablet by mouth once a day INITIAL IMPRESSION AND PLAN: Memory loss, variable sleep quality, daytime somnolence and family history of dementia: The patient will be scheduled for neuropsychological assessment, which will include tests for memory, reasoning, language, problem-solving, attention, and mood. Thank you for allowing me to participate in the care of this individual. Please contact me with any questions at [phone]. documented in this encounter [facility] 11-12-2023 Note HNO ID: [id number] Author: JENNI SERRANO MD Service: ? Author [...] kidney disease) stage 3, GFR 30-59 ml/min ([facility]) DM type 2 (diabetes mellitus, type 2) ([facility]) HTN (hypertension) Hypothyroidism Mixed hyperlipidemia Overactive bladder [...] of lesions. TMs clear and mobile. Neurologic: acreage reporter II-XII grossly intact. Assessment/Plan: Reassured no apparent oral lesion. 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 F/up prn. Medical Decision Making: Problems: Low: Acute, uncomplicated illness or injury Risk: Minimal: Minimal risk from testing/treatment Medical Decision Making Level: 2 - Straightforward [facility] 11-12-2023 History of Present illness Narrative History: Vivian Duran, a 73 [...] kidney disease) stage 3, GFR 30-59 ml/min ([facility]) DM type 2 (diabetes mellitus, type 2) ([facility]) HTN (hypertension) Hypothyroidism Mixed hyperlipidemia Overactive bladder [...] of lesions. TMs clear and mobile. Neurologic: acreage reporter II-XII grossly intact. Assessment/Plan: Reassured no apparent oral lesion. 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 F/up prn. Medical Decision Making: Problems: Low: Acute, uncomplicated illness or injury Risk: Minimal: Minimal risk from testing/treatment Medical Decision Making Level: 2 - Straightforward documented in this encounter [facility] 10-11-2023 Telephone encounter Note Patient returned call to [facility] regarding the message Leann left. Patient states to call again at [phone]. Patient will accept any open slot. [facility] 10-11-2023 Miscellaneous Notes Patient returned call to Leann regarding the message Leann left. Patient states to call again at [phone]. Patient will accept any open slot. Please call patient. Please let her know that I would highly recommend that she see one of our ENT legal librarian physicians. They would be able to discuss with her a biopsy either in the office or the operating room if indicated. Please assist with an appointment for Dr. Rodriguez, Dr. Pope, Dr. Serrano, Dr. Duncan, or Dr. Chowdhury at the patient's earliest convenience. Please let her know that the closest location that we would be able to provide this service would be [place]. Otherwise, we have providers in [facility], or several locations on the [facility] or in [place] that would be able to help her with this biopsy. Not appropriate for her to see PA or STRATEGY ANALYST must be scheduled with MD only. Thank [...] calling: self Call patient at: at home [phone] (home) [phone] (cell) Was an appointment scheduled: No Closing statement: Results or non-symptom based questions: Thank you for calling [facility], your call will be returned within the next business day. Pamela Lange documented in this encounter [facility] 10-11-2023 Telephone encounter Note Please call patient. Please let her know that I would highly recommend that she see one of our ENT legal librarian physicians. They would be able to discuss with her a biopsy either in the office or the operating room if indicated. Please assist with an appointment for Dr. Rodriguez, Dr. Pope, Dr. Serrano, Dr. Duncan, or Dr. Chowdhury at the patient's earliest convenience. Please let her know that the closest location that we would be able to provide this service would be [place]. Otherwise, we have providers in [facility], or several locations on the [facility] or in [place] that would be able to help her with this biopsy. Not appropriate for her to see PA or STRATEGY ANALYST must be scheduled with MD only. Thank you, Elicia Cross CNP [facility] 10-10-2023 Telephone encounter Note [facility]oted is calling Elicia Cross APRN.CIRCUIT JUDGE today to as pt went to dentist [...] calling: self Call patient at: at home [phone] (home) [phone] (cell) Was an appointment scheduled: No Closing statement: Results or non-symptom based questions: Thank you for calling [facility], your call will be returned within the next business day. Pamela Lange [facility] 08-27-2023 Evaluation note Encounter Date Diagnosis Assessment [...] bladder prolapse and will follow with her MANAGER UROLOGY. Aug, Hyperuricemia (ICD-10 - E79.0) She has hyperuricemia due to the CKD. She denies any symptoms we will monitor without medications. [facility] Other 11-03-2023 NoteHNO ID: [id number] Author: Ester Blanca AuD, PUNEET-A Service: ? Author Type: Defence [employer] Member Other Ranks Type: Procedures Filed: 08/10/2023 10:00 AM Note Text: [facility] [place] AUDIOLOGIC EVALUATION REPORT Name: Vivian Duran CC#: [id number] Date of Service: 08/10/2023 Date of : 1950 Age: [age] year old Referred by: Elicia Cross [address] [place] [address] [place] [address] Referred for: Evaluation of the cause of disorder of hearing, tinnitus, or balance. Referral documented: In an order in [facility] Patient's major complaints: Hearing Loss/Hearing Problem. Vivian reported she has some trouble hearing/understanding speech and some trouble hearing the dialogue when watching TV unless the volume is louder. Her notices this problem. Patient denies tinnitus. Vivian Duran was seen for an initial audiologic evaluation. See [facility] for additional reported history and symptoms. [...] evaluation of middle ear function. CPT code: 55250 RIGHT EAR: Normal ME pressure and TM compliance (mobility). LEFT EAR: Normal ME pressure and TM compliance (mobility). PURE TONE AUDIOMETRY AND SPEECH TESTING Description of procedure: This test is an objective evaluation hearing sensitivity via air and bone conduction and speech recognition testing. CPT code:07974 RIGHT EAR: Hearing Sensitivity: Hearing sensitivity within [...] testing. RECOMMENDATIONS 1. ENT consult today with Elicai Cross APRN.CNP. 2. Recheck as needed. 3. Hearing conservation. Tania Vasquez, PUNEET/A Clinical [employer] Member Other Ranks VILLANUEVA Abbrev- iation Definition Degree of hearing sensitivity dB range WNL within normal limits WNL 0 - 20 SNHL sensorineural hearing loss Mild 20-40 CHL conductive hearing loss Moderate 40-55 MHL mixed hearing loss Moderately-Severe 55-70 WRS word recognition score Severe 70-90 ME middle ear Profound 90 + TM tympanic membrane[facility] NoteHNO ID: [id number] Author: Elicia Cross APRN.CIRCUIT JUDGE Service: ? Author Type: Nurse Practitioner Type: [...] evaluation of middle ear function. CPT code: 95534 RIGHT EAR: Normal ME pressure and TM compliance (mobility). LEFT EAR: Normal ME pressure and TM compliance (mobility). PURE TONE AUDIOMETRY AND SPEECH TESTING Description of procedure: This test is an objective evaluation hearing sensitivity via air and bone conduction and speech recognition testing. CPT code:58260 RIGHT EAR: Hearing Sensitivity: Hearing sensitivity within [...] kidney disease) stage 3, GFR 30-59 ml/min ([facility]) DM type 2 (diabetes mellitus, type 2) ([facility]) HTN (hypertension) Hypothyroidism Mixed hyperlipidemia Overactive bladder [...] BIOTIN, ORAL Take by mouth as directed. pnmqzsuph-D4-hxG25-algal oil (METANX, ALGAL OIL,) 3 mg-35 mg-2 [...] limited. Neck: No masses (more content not included)...[facility] 08-10-2023 Procedure note* Ester Blanca AuD, CCC-A - 08/10/2023 8:17 AM EDT [facility] [place] AUDIOLOGIC EVALUATION REPORT Name: Vivian Duran [facility]#: [id number] Date of Service: 08/10/2023 Date of : 1950 Age: [age] year old Referred by: Elicia Cross [address] [place] [address] Referred for: Evaluation of the cause of disorder of hearing, tinnitus, or balance. Referral documented: In an order in [facility] Patient's major complaints: Hearing Loss/Hearing Problem. [...] evaluation of middle ear function. CPT code: 50037 RIGHT EAR: Normal ME pressure and TM compliance (mobility). LEFT EAR: Normal ME pressure and TM compliance (mobility). PURE TONE AUDIOMETRY AND SPEECH TESTING Description of procedure: This test is an objective evaluation hearing sensitivity via air and boneconduction and speech recognition testing. CPT code:79118 RIGHT EAR: Hearing Sensitivity: Hearing sensitivity within [...] Recheck as needed. 3. Hearing conservation. Tania Vasquez CCC/Zohra Clinical [employer] Member Other Ranks VILLANUEVA Abbrev- iation Definition Degree of hearing sensitivity dB range WNL within normal limits WNL 0 - 20 SNHL sensorineural hearing loss Mild 20-40 CHL conductive hearing loss Moderate 40-55 MHL mixed hearing loss Moderately-Severe 55-70 WRS word recognition score Severe 70-90 ME middle ear Profound 90 + TM tympanic membrane [facility] History of Present illness Narrative* Elicia Cross [...] evaluation of middle ear function. CPT code: 49205 RIGHT EAR: Normal ME pressure and TM compliance (mobility). LEFT EAR: Normal ME pressure and TM compliance (mobility). PURE TONE AUDIOMETRY AND SPEECH TESTING Description of procedure: This test is an objective evaluation hearing sensitivity via air and boneconduction and speech recognition testing. CPT code:14439 RIGHT EAR: Hearing Sensitivity: Hearing sensitivity within [...] kidney disease) stage 3, GFR 30-59 ml/min ([facility]) DM type 2 (diabetes mellitus, type 2) ([facility]) HTN (hypertension) Hypothyroidism Mixed hyperlipidemia Overactive bladder [...] BIOTIN, ORAL Take by mouth as directed. gcqabtgsw-F0-jqB61-algal oil (METANX, ALGAL OIL,) 3 mg-35 mg-2 [...] area to rule out leukoplakia. Elicia Cross APRN.MIGNON [facility] Evaluation note* Diagnosis Other specified hearing loss, unspecified ear- Primary Type 2 diabetes mellitus with stage 3a chronic kidney disease, without long-term current use of insulin ([facility]) documented in this encounter [facility]04-04-2023 Evaluation note* Diagnosis Onset Date Resolution Status Admit Date Fatty liver January 09, 2023 acute May 082024 9:17am GERD (gastroesophageal reflux disease) acute May 08, 2025 9:17am LARSON (nonalcoholic steatohepatitis) acute May 08 9:17am [facility] Work Phone: 1(720) 415-622104-04-2023 Evaluation note* Diagnosis Onset Date Resolution Status Admit Date Fatty liver January 09, 2023 acute May 082024 9:17am GERD (gastroesophageal reflux disease) acute May 08, 2025 9:17am LARSON (nonalcoholic steatohepatitis) acute May 08 9:17am Fatty liver January 09, 2023 acute Septembe r 2024 9:02am GERD (gastroesophageal reflux disease) acute June 22, 2025 9:02am LARSON (nonalcoholic steatohepatitis) acute June 22, 2025 9:02am [facility] Work Phone: 1(939) 678-565704-04-2023 Evaluation note* Diagnosis Onset Date Resolution Status Admit Date Fatty liver January 09, 2023 acute May 082024 9:17am GERD (gastroesophageal reflux disease) acute May 08, 2025 9:17am LARSON (nonalcoholic steatohepatitis) acute May 08 9:17am Fatty liver January 09, 2023 acute Septembe r 2024 9:02am GERD (gastroesophageal reflux disease) acute June 22, 2025 9:02am LARSON (nonalcoholic steatohepatitis) acute June 22, 2025 9:02am Cervical disc disorder at C5-C6 level with radiculopathy acute July 15 9:48am History of fusion of cervical spine acute July 15 9:48am Occipital neuralgia of right side acute July 15 9:48am [facility] Work Phone: 1(270) 323-821003-21-2023 Evaluation note* Encounter Date Diagnosis Assessment Notes Treatment Notes Treatment Clinical Notes Dec, Fatty liver (ICD-10 - K76.0) Dec, LARSON (nonalcoholic steatohepatitis) (ICD-10 - K75.81) Repeat fibroscan 1 yr F/u with Mt in 1 yr [facility] Other 02-22-2023 NoteHISTORY: Bone density screening COMPARISON: [...] and signed by Estrada Cummins on 11/29/2022 1031[facility]-05-2023 Evaluation note* Encounter Date Diagnosis Assessment Notes Treatment Notes Treatment Clinical Notes Oct, Diabetes mellitus with chronic kidney disease (ICD-10 - E11.22) [facility] Other 11-15-2022 Evaluation note* Encounter Date Diagnosis Assessment Notes Treatment Notes Treatment Clinical Notes Aug, Elevated liver enzymes (ICD-10 - R74.8) [facility] Other 11-07-2022 Evaluation note* Encounter Date Diagnosis [...] bladder prolapse and will follow with her MANAGER UROLOGY. Aug, Hyperuricemia (ICD-10 - E79.0) She has hyperuricemia due to the CKD. She denies any symptoms we will monitor without medications. [facility] Other 05-09-2022 Evaluation note* Encounter Date Diagnosis [...] bladder prolapse and will follow with her MANAGER UROLOGY. February, Hyperglycemia (ICD-10 - R73.9) She has a fasting blood sugar above 126 mg/dL possibly she has diabetes I have advised her to monitor her blood sugars and follow with PCP. She can be started on Metformin or SGLT2 inhibitors like farxiga if needed [facility] Other 02-16-2022 Evaluation note* Encounter Date Diagnosis Assessment Notes Treatment Notes Treatment Clinical Notes Nov, Hypertensive chronic kidney disease with stage 1 through stage 4 chronic kidney disease, or unspecified chronic kidney disease (ICD-10 - I12.9) Nov, Chronic kidney disea se, stage III (moderate) (ICD-10 - N18.30) Nov, Secondary hyperparathyroidism (ICD-10 - N25.81) [facility] Other 11-03-2021 Evaluation note* Encounter Date Diagnosis [...] bladder prolapse and will follow with her MANAGER UROLOGY. Aug, Hyperglycemia (ICD-10 - R73.9) She has a fasting blood sugar above 110 mg/dL possibly she has prediabetes I have advised her to monitor her blood sugars and follow with PCP. [facility] Other Evaluation noteNo assessment information available [facility] Work Phone: Evaluation note* Diagnosis Other specified hearing loss, unspecified ear- Primary [facility] Diagnosis Bilateral high frequency sensorineural hearing loss- Primary Sensorineural hearing loss, bilateral Oral lesion Other and unspecified diseases of the oral soft tissues [facility] Diagnosis DDD (degenerative disc disease), lumbar- Primary Degeneration of lumbar or lumbosacral intervertebral disc DDD (degenerative disc disease), thoracic Degeneration of thoracic or thoracolumbar intervertebral disc documented in this encounter [facility]* Diagnosis DDD (degenerative disc disease), lumbar- Primary Degeneration of lumbar or lumbosacral intervertebral disc DDD (degenerative disc disease), thoracic Degeneration of thoracic or thoracolumbar intervertebral disc documented in this encounter [facility] Healthcare[facility] note* Diagnosis DDD (degenerative disc disease), lumbar- Primary Degeneration of lumbar or lumbosacral intervertebral disc DDD (degenerative disc disease), thoracic Degeneration of thoracic or thoracolumbar intervertebral disc documented in this encounter [facility] HealthcareEvaluation note* Diagnosis Type 2 diabetes mellitus without complication, without long-term current use of insulin ([facility]) documented in this encounter [facility] Healthcare[facility] note* Diagnosis Oral lesion- Primary Other and unspecified diseases of the oral soft tissues [facility] Oral lesion Other and unspecified diseases of the oral soft tissues documented in this [facility] Type 2 diabetes mellitus without complication, without long-term current use of insulin (CMS/[facility])- Primary Seasonal allergic rhinitis due to pollen [...] polyneuropathy, without long-term current use of insulin ([facility]) Obstructive sleep apnea syndrome Obstructive sleep apnea (adult) (pediatric) Essential hypertension (CMS/HCC) Unspecified essential hypertension Stage 3a chronic kidney disease (HCC) ([facility]/HCC) Urgency incontinence Urge incontinence Acquired hypothyroidism ([facility]/HCC) Unspecified hypothyroidism Type 2 diabetes mellitus with stage 3a chronic kidney disease, without long-term current use of insulin (HCC) (CMS/HCC) Mixed hyperlipidemia (CMS/HCC) Mixed hyperlipidemia Type 2 diabetes mellitus with diabetic polyneuropathy, without long-term current use of insulin ([facility])- Primary Urinary frequency Obstructive sleep apnea syndrome Obstructive sleep apnea (adult) (pediatric) Essential hypertension (CMS/HCC) Unspecified essential hypertension LARSON (nonalcoholic steatohepatitis) Other chronic nonalcoholic liver disease Hypertensive chronic kidney disease with stage 1 through stage 4 chronic kidney disease, or unspecified chronic kidney disease (CMS/HCC) Stage 3a chronic kidney disease (HCC) ([facility]/HCC) Acquired hypothyroidism ([facility]/HCC) Unspecified hypothyroidism Mixed hyperlipidemia ([facility]/HCC) Mixed hyperlipidemia Anxiety Anxiety state, unspecified Type 2 diabetes mellitus with stage 2 chronic kidney disease, without long-term current use of insulin ([facility]) documented in this encounter [facility]* Diagnosis Type 2 diabetes mellitus without complication, without long-term current use of insulin ([facility])- Primary Seasonal allergic rhinitis due to pollen Darcy albicans infection Obstructive sleep apnea syndrome Obstructive sleep apnea (adult) (pediatric) Essential hypertension (CMS/HCC) Unspecified essential hypertension Stage 3a chronic kidney disease (HCC) ([facility]/HCC) Acquired hypothyroidism ([facility]/HCC) Unspecified hypothyroidism Encounter for immunization- Primary Type 2 diabetes mellitus without complication, without long-term current use of insulin ([facility]) Obstructive sleep apnea syndrome Obstructive sleep apnea [...] (pediatric) Essential hypertension (CMS/HCC) Unspecified essential hypertension LASRON (nonalcoholic steatohepatitis) Other chronic nonalcoholic liver disease [...] angioma Nevus, non-neoplastic documented in this encounter [facility] HealthcareEvaluation note* Diagnosis Type 2 diabetes mellitus without complication, without long-term current use of insulin ([facility])- Primary Seasonal allergic rhinitis due to pollen [...] (pediatric) Essential hypertension (CMS/HCC) Unspecified essential hypertension LARSON (nonalcoholic steatohepatitis) Other chronic nonalcoholic liver disease Hypertensive chronic kidney disease with stage 1 through stage 4 chronic kidney disease, or unspecified chronic kidney disease (CMS/HCC) Stage 3a chronic kidney disease (HCC) (CMS/HCC) Acquired hypothyroidism (CMS/HCC) Unspecified hypothyroidism Mixed hyperlipidemia ([facility]/HCC) Mixed hyperlipidemia Anxiety Anxiety state, unspecified Type 2 diabetes mellitus with stage 2 chronic kidney disease, without long-term current use of insulin ([facility]/HCC) documented in this encounter [facility] HealthcareEvaluation note* Diagnosis Type 2 diabetes mellitus without complication, without long-term current use of insulin ([facility]/HCC)- Primary Seasonal allergic rhinitis due to pollen Darcy albicans infection Obstructive sleep apnea syndrome Obstructive sleep apnea (adult) (pediatric) Essential hypertension (CMS/HCC) Unspecified essential hypertension Stage 3a chronic kidney disease (HCC) (CMS/HCC) Acquired hypothyroidism ([facility]/HCC) Unspecified hypothyroidism Encounter for immunization- Primary [...] (pediatric) Essential hypertension (CMS/HCC) Unspecified essential hypertension LARSON (nonalcoholic steatohepatitis) Other chronic nonalcoholic liver disease Hypertensive chronic kidney disease with stage 1 through stage 4 chronic kidney disease, or unspecified chronic kidney disease (CMS/HCC) Stage 3a chronic kidney disease (HCC) (CMS/HCC) Acquired hypothyroidism (CMS/HCC) Unspecified hypothyroidism Mixed hyperlipidemia (CMS/HCC) Mixed hyperlipidemia Anxiety Anxiety state, unspecified Primary hypertension (CMS/HCC) Unspecified essential hypertension documented in this encounter [facility]* Diagnosis Type 2 diabetes mellitus without complication, without long-term current use of insulin ([facility])- Primary Seasonal allergic rhinitis due to pollen Darcy albicans infection Obstructive sleep apnea syndrome Obstructive sleep apnea (adult) (pediatric) Essential hypertension (CMS/HCC) Unspecified essential hypertension Stage 3a chronic kidney disease (HCC) (CMS/HCC) Acquired hypothyroidism ([facility]/HCC) Unspecified hypothyroidism Encounter for immunization- Primary Type 2 diabetes mellitus without complication, without long-term current use of insulin (CMS/HCC) Obstructive sleep apnea syndrome Obstructive sleep apnea (adult) (pediatric) Essential hypertension (CMS/HCC) Unspecified essential hypertension Type 2 diabetes mellitus with stage 2 chronic kidney disease, without long-term current use of insulin (CMS/HCC) Mixed hyperlipidemia ([facility]/HCC) Mixed hyperlipidemia Vaginal irritation Pruritus of genital organs Wellness examination- Primary Type 2 diabetes mellitus with diabetic polyneuropathy, without long-term current use of insulin (CMS/HCC) Obstructive sleep apnea syndrome Obstructive sleep apnea (adult) (pediatric) Essential hypertension (CMS/HCC) Unspecified essential hypertension Stage 3a chronic kidney disease (HCC) ([facility]/HCC) Urgency incontinence Urge incontinence Acquired hypothyroidism ([facility]/HCC) Unspecified hypothyroidism Type 2 diabetes mellitus with stage 3a chronic kidney disease, without long-term current use of insulin (HCC) (CMS/HCC) Mixed hyperlipidemia (CMS/HCC) Mixed hyperlipidemia Type 2 diabetes mellitus with diabetic polyneuropathy, without long-term current use of insulin (CMS/HCC)- Primary Urinary frequency Obstructive sleep apnea syndrome Obstructive sleep apnea (adult) (pediatric) Essential hypertension (CMS/HCC) Unspecified essential hypertension LARSON (nonalcoholic steatohepatitis) Other chronic nonalcoholic liver disease [...] of insulin (CMS/HCC) documented in this encounter [facility] HealthcareEvaluation note* Diagnosis Type 2 diabetes [...] (pediatric) Essential hypertension (CMS/HCC) Unspecified essential hypertension LARSON (nonalcoholic steatohepatitis) Other chronic nonalcoholic liver disease [...] of insulin (CMS/HCC) documented in this encounter [facility] HealthcareEvaluation note* Diagnosis Type 2 diabetes [...] complication, without long-term current use of insulin (CMS/[facility]) Obstructive sleep apnea syndrome Obstructive sleep apnea [...] (CMS/HCC) Urgency incontinence Urge incontinence Acquired hypothyroidism ([facility]/HCC) Unspecified hypothyroidism Type 2 diabetes mellitus with stage 3a chronic kidney disease, without long-term current use of insulin (HCC) (CMS/HCC) Mixed hyperlipidemia (CMS/HCC) Mixed hyperlipidemia Type 2 diabetes mellitus with diabetic polyneuropathy, without long-term current use of insulin (CMS/HCC)- Primary Urinary frequency Obstructive sleep apnea syndrome Obstructive sleep apnea (adult) (pediatric) Essential hypertension (CMS/HCC) Unspecified essential hypertension LARSON (nonalcoholic steatohepatitis) Other chronic nonalcoholic liver disease Hypertensive chronic kidney disease with stage 1 through stage 4 chronic kidney disease, or unspecified chronic kidney disease (CMS/HCC) Stage 3a chronic kidney disease (HCC) (CMS/HCC) Acquired hypothyroidism (CMS/HCC) Unspecified hypothyroidism Mixed hyperlipidemia (CMS/HCC) Mixed hyperlipidemia Anxiety Anxiety state, unspecified Mixed hyperlipidemia ([facility]/HCC) Mixed hyperlipidemia documented in this encounter [facility] HealthcareEvaluation note* Diagnosis Type 2 diabetes mellitus without complication, without long-term current use of insulin (CMS/[facility])- Primary Seasonal allergic rhinitis due to pollen Darcy albicans infection Obstructive sleep apnea syndrome Obstructive sleep apnea (adult) (pediatric) Essential hypertension (CMS/HCC) Unspecified essential hypertension Stage 3a chronic kidney disease (HCC) (CMS/HCC) Acquired hypothyroidism ([facility]/HCC) Unspecified hypothyroidism Encounter for immunization- Primary Type 2 diabetes mellitus without complication, without long-term current use of insulin ([facility]/HCC) Obstructive sleep apnea syndrome Obstructive sleep apnea (adult) (pediatric) Essential hypertension (CMS/HCC) Unspecified essential hypertension Type 2 diabetes mellitus with stage 2 chronic kidney disease, without long-term current use of insulin ([facility]/HCC) Mixed hyperlipidemia ([facility]/HCC) Mixed hyperlipidemia Vaginal irritation Pruritus of genital organs Wellness examination- Primary Type 2 diabetes mellitus with diabetic polyneuropathy, without long-term current use of insulin ([facility]) Obstructive sleep apnea syndrome Obstructive sleep apnea (adult) (pediatric) Essential hypertension (CMS/HCC) Unspecified essential hypertension Stage 3a chronic kidney disease (HCC) (CMS/HCC) Urgency incontinence Urge incontinence Acquired hypothyroidism ([facility]/HCC) Unspecified hypothyroidism Type 2 diabetes mellitus with stage 3a chronic kidney disease, without long-term current use of insulin (HCC) ([facility]/HCC) Mixed hyperlipidemia ([facility]/HCC) Mixed hyperlipidemia Type 2 diabetes mellitus with diabetic polyneuropathy, without long-term current use of insulin ([facility]/HCC)- Primary Urinary frequency Obstructive sleep apnea syndrome Obstructive sleep apnea (adult) (pediatric) Essential hypertension (CMS/HCC) Unspecified essential hypertension LARSON (nonalcoholic steatohepatitis) Other chronic nonalcoholic liver disease Hypertensive chronic kidney disease with stage 1 through stage 4 chronic kidney disease, or unspecified chronic kidney disease (CMS/HCC) Stage 3a chronic kidney disease (HCC) (CMS/HCC) Acquired hypothyroidism ([facility]/HCC) Unspecified hypothyroidism Mixed hyperlipidemia ([facility]/HCC) Mixed hyperlipidemia Anxiety Anxiety state, unspecified Encounter for screening mammogram for malignant neoplasm of breast- Primary Type 2 diabetes mellitus with diabetic polyneuropathy, without long-term current use of insulin ([facility]) Chronic midline low back pain without sciatica Sinus congestion Other diseases of nasal cavity and sinuses documented in this encounter [facility] HealthcareEvaluation note* Diagnosis Type 2 diabetes mellitus without complication, without long-term current use of insulin ([facility])- Primary Seasonal allergic rhinitis due to pollen Darcy albicans infection Obstructive sleep apnea syndrome Obstructive sleep apnea (adult) (pediatric) Essential hypertension (CMS/HCC) Unspecified essential hypertension Stage 3a chronic kidney disease (HCC) ([facility]/HCC) Acquired hypothyroidism (CMS/HCC) Unspecified hypothyroidism Encounter for immunization- Primary Type 2 diabetes mellitus without complication, without long-term current use of insulin ([facility]) Obstructive sleep apnea syndrome Obstructive sleep apnea (adult) (pediatric) Essential hypertension (CMS/HCC) Unspecified essential hypertension Type 2 diabetes mellitus with stage 2 chronic kidney disease, without long-term current use of insulin ([facility]/HCC) Mixed hyperlipidemia ([facility]/HCC) Mixed hyperlipidemia Vaginal irritation Pruritus of genital organs Wellness examination- Primary Type 2 diabetes mellitus with diabetic polyneuropathy, without long-term current use of insulin ([facility]) Obstructive sleep apnea syndrome Obstructive sleep apnea (adult) (pediatric) Essential hypertension (CMS/HCC) Unspecified essential hypertension Stage 3a chronic kidney disease (HCC) ([facility]) Urgency incontinence Urge incontinence Acquired hypothyroidism ([facility]/HCC) Unspecified hypothyroidism Type 2 diabetes mellitus with stage 3a chronic kidney disease, without long-term current use of insulin (HCC) ([facility]) Mixed hyperlipidemia ([facility]) Mixed hyperlipidemia Type 2 diabetes mellitus with diabetic polyneuropathy, without long-term current use of insulin ([facility])- Primary Urinary frequency Obstructive sleep apnea syndrome Obstructive sleep apnea (adult) (pediatric) Essential hypertension (CMS/HCC) Unspecified essential hypertension LARSON (nonalcoholic steatohepatitis) Other chronic nonalcoholic liver disease Hypertensive chronic kidney disease with stage 1 through stage 4 chronic kidney disease, or unspecified chronic kidney disease (CMS/HCC) Stage 3a chronic kidney disease (HCC) ([facility]/HCC) Acquired hypothyroidism ([facility]/HCC) Unspecified hypothyroidism Mixed hyperlipidemia ([facility]) Mixed hyperlipidemia Anxiety Anxiety state, unspecified Chronic midline low back pain without sciatica- Primary documented in this encounter [facility]* Diagnosis Memory loss- Primary Poor sleep Daytime somnolence Family history of dementia Family history of other neurological diseases documented in this encounter [facility]* Diagnosis Type 2 diabetes mellitus with diabetic polyneuropathy, without long-term current use of insulin ([facility])- Primary Encounter for immunization documented in this encounter [facility]* Diagnosis Memory loss- Primary Poor sleep Daytime somnolence Family history of dementia Family history of other neurological diseases documented in this encounter [facility]* Diagnosis Portal venous hypertension (CMS/HCC)- Primary Encounter for immunization Dysphagia, unspecified type Memory loss RUQ pain Abdominal pain, right upper quadrant documented in this encounter [facility]* [...] (pediatric) Essential hypertension (CMS/HCC) Unspecified essential hypertension LARSON (nonalcoholic steatohepatitis) Other chronic nonalcoholic liver disease Hypertensive chronic kidney disease with stage 1 through stage 4 chronic kidney disease, or unspecified chronic kidney disease (CMS/HCC) Stage 3a chronic kidney disease (HCC) (CMS/HCC) Acquired hypothyroidism (CMS/HCC) Unspecified hypothyroidism Mixed hyperlipidemia (CMS/HCC) Mixed hyperlipidemia Anxiety Anxiety state, unspecified Chronic midline low back pain without sciatica- Primary documented in this encounter [facility] HealthcareEvaluation note* Diagnosis Type 2 diabetes mellitus without complication, without long-term current use of insulin ([facility])- Primary Seasonal allergic rhinitis due to pollen Darcy albicans infection Obstructive sleep apnea syndrome Obstructive sleep apnea (adult) (pediatric) Essential hypertension (CMS/HCC) Unspecified essential hypertension Stage 3a chronic kidney disease (HCC) (CMS/HCC) Acquired hypothyroidism ([facility]) Unspecified hypothyroidism Encounter for immunization- Primary Type 2 diabetes mellitus without complication, without long-term current use of insulin ([facility]) Obstructive sleep apnea syndrome Obstructive sleep apnea (adult) (pediatric) Essential hypertension (CMS/HCC) Unspecified essential hypertension Type 2 diabetes mellitus with stage 2 chronic kidney disease, without long-term current use of insulin ([facility]) Mixed hyperlipidemia ([facility]) Mixed hyperlipidemia Vaginal irritation Pruritus of genital organs Wellness examination- Primary Type 2 diabetes mellitus with diabetic polyneuropathy, without long-term current use of insulin ([facility]) Obstructive sleep apnea syndrome Obstructive sleep apnea (adult) (pediatric) Essential hypertension (CMS/HCC) Unspecified essential hypertension Stage 3a chronic kidney disease (HCC) ([facility]/HCC) Urgency incontinence Urge incontinence Acquired hypothyroidism ([facility]/HCC) Unspecified hypothyroidism Type 2 diabetes mellitus with stage 3a chronic kidney disease, without long-term current use of insulin (HCC) ([facility]) Mixed hyperlipidemia ([facility]) Mixed hyperlipidemia Type 2 diabetes mellitus with diabetic polyneuropathy, without long-term current use of insulin ([facility]/HCC)- Primary Urinary frequency Obstructive sleep apnea syndrome Obstructive sleep apnea (adult) (pediatric) Essential hypertension (CMS/HCC) Unspecified essential hypertension LARSON (nonalcoholic steatohepatitis) Other chronic nonalcoholic liver disease Hypertensive chronic kidney disease with stage 1 through stage 4 chronic kidney disease, or unspecified chronic kidney disease (CMS/HCC) Stage 3a chronic kidney disease (HCC) ([facility]/HCC) Acquired hypothyroidism ([facility]) Unspecified hypothyroidism Mixed hyperlipidemia ([facility]/HCC) Mixed hyperlipidemia Anxiety Anxiety state, unspecified Chronic midline low back pain without sciatica- Primary DDD (degenerative disc disease), thoracic Degeneration of thoracic or thoracolumbar intervertebral disc Degeneration of intervertebral disc of lumbar region, unspecified whether pain present documented in this encounter [facility] HealthcareEvaluation note* Diagnosis Type 2 diabetes mellitus without complication, without long-term current use of insulin ([facility])- Primary Seasonal allergic rhinitis due to pollen Darcy albicans infection Obstructive sleep apnea syndrome Obstructive sleep apnea (adult) (pediatric) Essential hypertension (CMS/HCC) Unspecified essential hypertension Stage 3a chronic kidney disease (HCC) ([facility]/HCC) Acquired hypothyroidism ([facility]) Unspecified hypothyroidism Encounter for immunization- Primary Type 2 diabetes mellitus without complication, without long-term current use of insulin ([facility]) Obstructive sleep apnea syndrome Obstructive sleep apnea (adult) (pediatric) Essential hypertension (CMS/HCC) Unspecified essential hypertension Type 2 diabetes mellitus with stage 2 chronic kidney disease, without long-term current use of insulin (CMS/HCC) Mixed hyperlipidemia ([facility]/HCC) Mixed hyperlipidemia Vaginal irritation Pruritus of genital organs Wellness examination- Primary Type 2 diabetes mellitus with diabetic polyneuropathy, without long-term current use of insulin ([facility]) Obstructive sleep apnea syndrome Obstructive sleep apnea (adult) (pediatric) Essential hypertension ([facility]/HCC) Unspecified essential hypertension Stage 3a chronic kidney disease (HCC) ([facility]) Urgency incontinence Urge incontinence Acquired hypothyroidism ([facility]) Unspecified hypothyroidism Type 2 diabetes mellitus with stage 3a chronic kidney disease, without long-term current use of insulin (HCC) ([facility]) Mixed hyperlipidemia ([facility]) Mixed hyperlipidemia Type 2 diabetes mellitus with diabetic polyneuropathy, without long-term current use of insulin ([facility])- Primary Urinary frequency Obstructive sleep apnea syndrome Obstructive sleep apnea (adult) (pediatric) Essential hypertension ([facility]/HCC) Unspecified essential hypertension LARSON (nonalcoholic steatohepatitis) Other chronic nonalcoholic liver disease Hypertensive chronic kidney disease with stage 1 through stage 4 chronic kidney disease, or unspecified chronic kidney disease ([facility]/HCC) Stage 3a chronic kidney disease (HCC) ([facility]/HCC) Acquired hypothyroidism ([facility]) Unspecified hypothyroidism Mixed hyperlipidemia ([facility]) Mixed hyperlipidemia Anxiety Anxiety state, unspecified Chronic midline low back pain without sciatica- Primary DDD (degenerative disc disease), thoracic Degeneration of thoracic or thoracolumbar intervertebral disc Degeneration of intervertebral disc of lumbar region, unspecified whether pain present documented in this encounter [facility]* Diagnosis Type 2 diabetes mellitus without complication, without long-term current use of insulin ([facility])- Primary Seasonal allergic rhinitis due to pollen [...] without long-term current use of insulin (HCC) ([facility]/HCC) Mixed hyperlipidemia (CMS/HCC) Mixed hyperlipidemia Type 2 diabetes mellitus with diabetic polyneuropathy, without long-term current use of insulin (CMS/HCC)- Primary Urinary frequency Obstructive sleep apnea syndrome Obstructive sleep apnea (adult) (pediatric) Essential hypertension (CMS/HCC) Unspecified essential hypertension LARSON (nonalcoholic steatohepatitis) Other chronic nonalcoholic liver disease Hypertensive chronic kidney disease with stage 1 through stage 4 chronic kidney disease, or unspecified chronic kidney disease (CMS/HCC) Stage 3a chronic kidney disease (HCC) (CMS/HCC) Acquired hypothyroidism ([facility]/HCC) Unspecified hypothyroidism Mixed hyperlipidemia ([facility]/HCC) Mixed hyperlipidemia Anxiety Anxiety state, unspecified Chronic midline low back pain without sciatica- Primary DDD (degenerative disc disease), thoracic Degeneration of thoracic or thoracolumbar intervertebral disc Degeneration of intervertebral disc of lumbar region, unspecified whether pain present documented in this encounter [facility]* Diagnosis Type 2 diabetes mellitus without complication, without long-term current use of insulin ([facility])- Primary Seasonal allergic rhinitis due to pollen Darcy albicans infection Obstructive sleep apnea syndrome Obstructive sleep apnea (adult) (pediatric) Essential hypertension (CMS/HCC) Unspecified essential hypertension Stage 3a chronic kidney disease (HCC) (CMS/HCC) Acquired hypothyroidism ([facility]/HCC) Unspecified hypothyroidism Encounter for immunization- Primary Type 2 diabetes mellitus without complication, without long-term current use of insulin (CMS/HCC) Obstructive sleep apnea syndrome Obstructive sleep apnea (adult) (pediatric) Essential hypertension (CMS/HCC) Unspecified essential hypertension Type 2 diabetes mellitus with stage 2 chronic kidney disease, without long-term current use of insulin ([facility]/HCC) Mixed hyperlipidemia ([facility]/HCC) Mixed hyperlipidemia Vaginal irritation Pruritus of genital organs Wellness examination- Primary Type 2 diabetes mellitus with diabetic polyneuropathy, without long-term current use of insulin ([facility]) Obstructive sleep apnea syndrome Obstructive sleep apnea (adult) (pediatric) Essential hypertension (CMS/HCC) Unspecified essential hypertension Stage 3a chronic kidney disease (HCC) ([facility]/HCC) Urgency incontinence Urge incontinence Acquired hypothyroidism ([facility]) Unspecified hypothyroidism Type 2 diabetes mellitus with stage 3a chronic kidney disease, without long-term current use of insulin (HCC) ([facility]) Mixed hyperlipidemia ([facility]) Mixed hyperlipidemia Type 2 diabetes mellitus with diabetic polyneuropathy, without long-term current use of insulin ([facility])- Primary Urinary frequency Obstructive sleep apnea syndrome Obstructive sleep apnea (adult) (pediatric) Essential hypertension ([facility]/HCC) Unspecified essential hypertension LARSON (nonalcoholic steatohepatitis) Other chronic nonalcoholic liver disease Hypertensive chronic kidney disease with stage 1 through stage 4 chronic kidney disease, or unspecified chronic kidney disease ([facility]/HCC) Stage 3a chronic kidney disease (HCC) ([facility]) Acquired hypothyroidism ([facility]) Unspecified hypothyroidism Mixed hyperlipidemia ([facility]) Mixed hyperlipidemia Anxiety Anxiety state, unspecified Acute non-recurrent pansinusitis- Primary Cough, unspecified type Nasal congestion Other diseases of nasal cavity and sinuses documented in this encounter [facility]* Diagnosis Type 2 diabetes mellitus without complication, without long-term current use of insulin ([facility])- Primary Seasonal allergic rhinitis due to pollen Darcy albicans infection Obstructive sleep apnea syndrome Obstructive sleep apnea (adult) (pediatric) Essential hypertension (CMS/HCC) Unspecified essential hypertension Stage 3a chronic kidney disease (HCC) ([facility]) Acquired hypothyroidism ([facility]) Unspecified hypothyroidism Encounter for immunization- Primary Type 2 diabetes mellitus without complication, without long-term current use of insulin ([facility]) Obstructive sleep apnea syndrome Obstructive sleep apnea (adult) (pediatric) Essential hypertension ([facility]/HCC) Unspecified essential hypertension Type 2 diabetes mellitus [...] (pediatric) Essential hypertension (CMS/HCC) Unspecified essential hypertension LARSON (nonalcoholic steatohepatitis) Other chronic nonalcoholic liver disease Hypertensive chronic kidney disease with stage 1 through stage 4 chronic kidney disease, or unspecified chronic kidney disease (CMS/HCC) Stage 3a chronic kidney disease (HCC) ([facility]/HCC) Acquired hypothyroidism ([facility]/HCC) Unspecified hypothyroidism Mixed hyperlipidemia ([facility]/HCC) Mixed hyperlipidemia Anxiety Anxiety state, unspecified Other atopic dermatitis Inflamed seborrheic keratosis documented in this encounter [facility]Evaluation [facility]* Diagnosis Type 2 diabetes mellitus without complication, without long-term current use of insulin ([facility])- Primary Seasonal allergic rhinitis due to pollen Darcy albicans infection Obstructive sleep apnea syndrome Obstructive sleep apnea (adult) (pediatric) Essential hypertension (CMS/HCC) Unspecified essential hypertension Stage 3a chronic kidney disease (HCC) ([facility]/HCC) Acquired hypothyroidism ([facility]/HCC) Unspecified hypothyroidism Encounter for immunization- Primary Type 2 diabetes mellitus without complication, without long-term current use of insulin (CMS/HCC) Obstructive sleep apnea syndrome Obstructive sleep apnea (adult) (pediatric) Essential hypertension (CMS/HCC) Unspecified essential hypertension Type 2 diabetes mellitus with stage 2 chronic kidney disease, without long-term current use of insulin (CMS/HCC) Mixed hyperlipidemia ([facility]/HCC) Mixed hyperlipidemia Vaginal irritation Pruritus of [...] (pediatric) Essential hypertension (CMS/HCC) Unspecified essential hypertension LARSON (nonalcoholic steatohepatitis) Other chronic nonalcoholic liver disease Hypertensive chronic kidney disease with stage 1 through stage 4 chronic kidney disease, or unspecified chronic kidney disease (CMS/HCC) Stage 3a chronic kidney disease (HCC) (CMS/HCC) Acquired hypothyroidism ([facility]/HCC) Unspecified hypothyroidism Mixed hyperlipidemia ([facility]/HCC) Mixed hyperlipidemia Anxiety Anxiety state, unspecified Chronic midline low back pain without sciatica- Primary DDD (degenerative disc disease), thoracic Degeneration of thoracic or thoracolumbar intervertebral disc Degeneration of intervertebral disc of lumbar region, unspecified whether pain present documented in this encounter [facility]Evaluation [facility]* Diagnosis Type 2 diabetes mellitus without complication, without long-term current use of insulin ([facility])- Primary Seasonal allergic rhinitis due to pollen Darcy albicans infection Obstructive sleep apnea syndrome Obstructive sleep apnea (adult) (pediatric) Essential hypertension (CMS/HCC) Unspecified essential hypertension Stage 3a chronic kidney disease (HCC) ([facility]/HCC) Acquired hypothyroidism ([facility]/HCC) Unspecified hypothyroidism Encounter for immunization- Primary Type 2 diabetes mellitus without complication, without long-term current use of insulin ([facility]) Obstructive sleep apnea syndrome Obstructive sleep apnea (adult) (pediatric) Essential hypertension ([facility]/HCC) Unspecified essential hypertension Type 2 diabetes mellitus with stage 2 chronic kidney disease, without long-term current use of insulin (CMS/HCC) Mixed hyperlipidemia ([facility]/HCC) Mixed hyperlipidemia Vaginal irritation Pruritus of genital organs Wellness examination- Primary Type 2 diabetes mellitus with diabetic polyneuropathy, without long-term current use of insulin ([facility]/HCC) Obstructive sleep apnea syndrome Obstructive sleep apnea (adult) (pediatric) Essential hypertension (CMS/HCC) Unspecified essential hypertension Stage 3a chronic kidney disease (HCC) ([facility]/HCC) Urgency incontinence Urge incontinence Acquired hypothyroidism ([facility]/HCC) Unspecified hypothyroidism Type 2 diabetes mellitus with stage 3a chronic kidney disease, without long-term current use of insulin (HCC) (CMS/HCC) Mixed hyperlipidemia (CMS/HCC) Mixed hyperlipidemia Type 2 diabetes mellitus with diabetic polyneuropathy, without long-term current use of insulin (CMS/HCC)- Primary Urinary frequency Obstructive sleep apnea syndrome Obstructive sleep apnea (adult) (pediatric) Essential hypertension (CMS/HCC) Unspecified essential hypertension LARSON (nonalcoholic steatohepatitis) Other chronic nonalcoholic liver disease Hypertensive chronic kidney disease with stage 1 through stage 4 chronic kidney disease, or unspecified chronic kidney disease (CMS/HCC) Stage 3a chronic kidney disease (HCC) (CMS/HCC) Acquired hypothyroidism (CMS/HCC) Unspecified hypothyroidism Mixed hyperlipidemia (CMS/HCC) Mixed hyperlipidemia Anxiety Anxiety state, unspecified Chronic midline low back pain without sciatica- Primary DDD (degenerative disc disease), thoracic Degeneration of thoracic or thoracolumbar intervertebral disc Degeneration of intervertebral disc of lumbar region, unspecified whether pain present documented in this encounter [facility]Evaluation note* Diagnosis Type 2 diabetes mellitus without complication, without long-term current use of insulin ([facility])- Primary Seasonal allergic rhinitis due to pollen Darcy albicans infection Obstructive sleep apnea syndrome Obstructive sleep apnea (adult) (pediatric) Essential hypertension (CMS/HCC) Unspecified essential hypertension Stage 3a chronic kidney disease (HCC) ([facility]/HCC) Acquired hypothyroidism ([facility]) Unspecified hypothyroidism Encounter for immunization- Primary Type 2 diabetes mellitus without complication, without long-term current use of insulin ([facility]) Obstructive sleep apnea syndrome Obstructive sleep apnea (adult) (pediatric) Essential hypertension ([facility]/HCC) Unspecified essential hypertension Type 2 diabetes mellitus with stage 2 chronic kidney disease, without long-term current use of insulin ([facility]/HCC) Mixed hyperlipidemia ([facility]/HCC) Mixed hyperlipidemia Vaginal irritation Pruritus of genital organs Wellness examination- Primary Type 2 diabetes mellitus with diabetic polyneuropathy, without long-term current use of insulin ([facility]/HCC) Obstructive sleep apnea syndrome Obstructive sleep apnea (adult) (pediatric) Essential hypertension (CMS/HCC) Unspecified essential hypertension Stage 3a chronic kidney disease (HCC) ([facility]/HCC) Urgency incontinence Urge incontinence Acquired hypothyroidism ([facility]/HCC) Unspecified hypothyroidism Type 2 diabetes mellitus with stage 3a chronic kidney disease, without long-term current use of insulin (HCC) ([facility]/HCC) Mixed hyperlipidemia ([facility]/HCC) Mixed hyperlipidemia Type 2 diabetes mellitus with diabetic polyneuropathy, without long-term current use of insulin (CMS/HCC)- Primary Urinary frequency Obstructive sleep apnea syndrome Obstructive sleep apnea (adult) (pediatric) Essential hypertension (CMS/HCC) Unspecified essential hypertension LARSON (nonalcoholic steatohepatitis) Other chronic nonalcoholic liver disease Hypertensive chronic kidney disease with stage 1 through stage 4 chronic kidney disease, or unspecified chronic kidney disease (CMS/HCC) Stage 3a chronic kidney disease (HCC) (CMS/HCC) Acquired hypothyroidism (CMS/HCC) Unspecified hypothyroidism Mixed hyperlipidemia (CMS/HCC) Mixed hyperlipidemia Anxiety Anxiety state, unspecified Chronic midline low back pain without sciatica- Primary DDD (degenerative disc disease), thoracic Degeneration of thoracic or thoracolumbar intervertebral disc Degeneration of intervertebral disc of lumbar region, unspecified whether pain present documented in this encounter [facility]* [...] (pediatric) Essential hypertension (CMS/HCC) Unspecified essential hypertension LARSON (nonalcoholic steatohepatitis) Other chronic nonalcoholic liver disease Hypertensive chronic kidney disease with stage 1 through stage 4 chronic kidney disease, or unspecified chronic kidney disease (CMS/HCC) Stage 3a chronic kidney disease (HCC) (CMS/HCC) Acquired hypothyroidism (CMS/HCC) Unspecified hypothyroidism Mixed hyperlipidemia (CMS/HCC) Mixed hyperlipidemia Anxiety Anxiety state, unspecified Chronic midline low back pain without sciatica- Primary DDD (degenerative disc disease), thoracic Degeneration of thoracic or thoracolumbar intervertebral disc Degeneration of intervertebral disc of lumbar region, unspecified whether pain present Postmenopausal atrophic vaginitis Breast cancer screening by mammogram Urgency incontinence Urge incontinence documented in this encounter [facility] HealthcareEvaluation note* Diagnosis Type 2 diabetes [...] (pediatric) Essential hypertension (CMS/HCC) Unspecified essential hypertension LARSON (nonalcoholic steatohepatitis) Other chronic nonalcoholic liver disease Hypertensive chronic kidney disease with stage 1 through stage 4 chronic kidney disease, or unspecified chronic kidney disease (CMS/HCC) Stage 3a chronic kidney disease (HCC) (CMS/HCC) Acquired hypothyroidism (CMS/HCC) Unspecified hypothyroidism Mixed hyperlipidemia (CMS/HCC) Mixed hyperlipidemia Anxiety Anxiety state, unspecified Diabetic polyneuropathy associated with type 2 diabetes mellitus (CMS/HCC) Postmenopausal atrophic vaginitis Breast cancer screening by mammogram Urgency incontinence Urge incontinence documented in this encounter [facility]Evaluation note* Diagnosis Type 2 diabetes [...] (pediatric) Essential hypertension (CMS/HCC) Unspecified essential hypertension LARSON (nonalcoholic steatohepatitis) Other chronic nonalcoholic liver disease Hypertensive chronic kidney disease with stage 1 through stage 4 chronic kidney disease, or unspecified chronic kidney disease (CMS/HCC) Stage 3a chronic kidney disease (HCC) (CMS/HCC) Acquired hypothyroidism (CMS/HCC) Unspecified hypothyroidism Mixed hyperlipidemia (CMS/HCC) Mixed hyperlipidemia Anxiety Anxiety state, unspecified Postmenopausal atrophic vaginitis Breast cancer screening by mammogram Urgency incontinence Urge incontinence Chronic midline low back pain without sciatica- Primary DDD (degenerative disc disease), thoracic Degeneration of thoracic or thoracolumbar intervertebral disc Degeneration of intervertebral disc of lumbar region, unspecified whether pain present documented in this encounter [facility]Evaluation note* Diagnosis Type 2 diabetes mellitus [...] (pediatric) Essential hypertension (CMS/HCC) Unspecified essential hypertension LARSON (nonalcoholic steatohepatitis) Other chronic nonalcoholic liver disease Hypertensive chronic kidney disease with stage 1 through stage 4 chronic kidney disease, or unspecified chronic kidney disease (CMS/HCC) Stage 3a chronic kidney disease (HCC) (CMS/HCC) Acquired hypothyroidism (CMS/HCC) Unspecified hypothyroidism Mixed hyperlipidemia (CMS/HCC) Mixed hyperlipidemia Anxiety Anxiety state, unspecified Pelvic pressure in female documented in this encounter [facility]Evaluation note* Diagnosis Type 2 diabetes mellitus [...] (pediatric) Essential hypertension (CMS/HCC) Unspecified essential hypertension LARSON (nonalcoholic steatohepatitis) Other chronic nonalcoholic liver disease Hypertensive chronic kidney disease with stage 1 through stage 4 chronic kidney disease, or unspecified chronic kidney disease (CMS/HCC) Stage 3a chronic kidney disease (HCC) (CMS/HCC) Acquired hypothyroidism (CMS/HCC) Unspecified hypothyroidism Mixed hyperlipidemia (CMS/HCC) Mixed hyperlipidemia Anxiety Anxiety state, unspecified Type 2 diabetes mellitus without complication, without long-term current use of insulin (CMS/HCC) Type 2 diabetes mellitus with stage 2 chronic kidney disease, without long-term current use of insulin (CMS/HCC) Primary hypertension (CMS/HCC) Unspecified essential hypertension Acquired hypothyroidism (CMS/HCC) Unspecified hypothyroidism documented in this encounter [facility]Evaluation note* Diagnosis Type 2 diabetes mellitus without complication, without long-term current use of insulin (CMS/[facility])- Primary Seasonal allergic rhinitis due to pollen [...] (CMS/HCC) Urgency incontinence Urge incontinence Acquired hypothyroidism ([facility]/HCC) Unspecified hypothyroidism Type 2 diabetes mellitus with stage 3a chronic kidney disease, without long-term current use of insulin (HCC) (CMS/HCC) Mixed hyperlipidemia (CMS/HCC) Mixed hyperlipidemia Type 2 diabetes mellitus with diabetic polyneuropathy, without long-term current use of insulin (CMS/HCC)- Primary Urinary frequency Obstructive sleep apnea syndrome Obstructive sleep apnea (adult) (pediatric) Essential hypertension (CMS/HCC) Unspecified essential hypertension LARSON (nonalcoholic steatohepatitis) Other chronic nonalcoholic liver disease Hypertensive chronic kidney disease with stage 1 through stage 4 chronic kidney disease, or unspecified chronic kidney disease (CMS/HCC) Stage 3a chronic kidney disease (HCC) (CMS/HCC) Acquired hypothyroidism (CMS/HCC) Unspecified hypothyroidism Mixed hyperlipidemia (CMS/HCC) Mixed hyperlipidemia Anxiety Anxiety state, unspecified Chronic midline low back pain without sciatica- Primary DDD (degenerative disc disease), thoracic Degeneration of thoracic or thoracolumbar intervertebral disc Degeneration of intervertebral disc of lumbar region, unspecified whether pain present documented in this encounter [facility]* Diagnosis Type 2 diabetes mellitus without complication, without long-term current use of insulin ([facility])- Primary Seasonal allergic rhinitis due to pollen [...] (pediatric) Essential hypertension (CMS/HCC) Unspecified essential hypertension LARSON (nonalcoholic steatohepatitis) Other chronic nonalcoholic liver disease Hypertensive chronic kidney disease with stage 1 through stage 4 chronic kidney disease, or unspecified chronic kidney disease (CMS/HCC) Stage 3a chronic kidney disease (HCC) (CMS/HCC) Acquired hypothyroidism (CMS/HCC) Unspecified hypothyroidism Mixed hyperlipidemia (CMS/HCC) Mixed hyperlipidemia Anxiety Anxiety state, unspecified Chronic midline low back pain without sciatica- Primary DDD (degenerative disc disease), thoracic Degeneration of thoracic or thoracolumbar intervertebral disc Degeneration of intervertebral disc of lumbar region, unspecified whether pain present documented in this encounter [facility]* Diagnosis Type 2 diabetes mellitus without complication, without long-term current use of insulin (CMS/[facility])- Primary Seasonal allergic rhinitis due to pollen [...] polyneuropathy, without long-term current use of insulin ([facility]) Obstructive sleep apnea syndrome Obstructive sleep apnea (adult) (pediatric) Essential hypertension (CMS/HCC) Unspecified essential hypertension Stage 3a chronic kidney disease (HCC) (CMS/HCC) Urgency incontinence Urge incontinence Acquired hypothyroidism ([facility]/HCC) Unspecified hypothyroidism Type 2 diabetes mellitus with stage 3a chronic kidney disease, without long-term current use of insulin (HCC) ([facility]/HCC) Mixed hyperlipidemia (CMS/HCC) Mixed hyperlipidemia Type 2 diabetes mellitus with diabetic polyneuropathy, without long-term current use of insulin ([facility])- Primary Urinary frequency Obstructive sleep apnea syndrome Obstructive sleep apnea (adult) (pediatric) Essential hypertension (CMS/HCC) Unspecified essential hypertension LARSON (nonalcoholic steatohepatitis) Other chronic nonalcoholic liver disease Hypertensive chronic kidney disease with stage 1 through stage 4 chronic kidney disease, or unspecified chronic kidney disease (CMS/HCC) Stage 3a chronic kidney disease (HCC) (CMS/HCC) Acquired hypothyroidism ([facility]/HCC) Unspecified hypothyroidism Mixed hyperlipidemia (CMS/HCC) Mixed hyperlipidemia Anxiety Anxiety state, unspecified Acute pain of right knee- Primary 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, right documented in this encounter [facility]Evaluation [facility]* Diagnosis Type 2 diabetes mellitus without complication, without long-term current use of insulin ([facility])- Primary Seasonal allergic rhinitis due to pollen Darcy albicans infection Obstructive sleep apnea syndrome Obstructive sleep apnea (adult) (pediatric) Essential hypertension (CMS/HCC) Unspecified essential hypertension Stage 3a chronic kidney disease (HCC) ([facility]/HCC) Acquired hypothyroidism ([facility]/HCC) Unspecified hypothyroidism Encounter for immunization- Primary Type 2 diabetes mellitus without complication, without long-term current use of insulin ([facility]/HCC) Obstructive sleep apnea syndrome Obstructive sleep apnea [...] hypertension Stage 3a chronic kidney disease (HCC) ([facility]/HCC) Urgency incontinence Urge incontinence Acquired hypothyroidism ([facility]) Unspecified hypothyroidism Type 2 diabetes mellitus with stage 3a chronic kidney disease, without long-term current use of insulin (HCC) (CMS/HCC) Mixed hyperlipidemia (CMS/HCC) Mixed hyperlipidemia Type 2 diabetes mellitus with diabetic polyneuropathy, without long-term current use of insulin ([facility]/HCC)- Primary Urinary frequency Obstructive sleep apnea syndrome Obstructive sleep apnea (adult) (pediatric) Essential hypertension (CMS/HCC) Unspecified essential hypertension LARSON (nonalcoholic steatohepatitis) Other chronic nonalcoholic liver disease Hypertensive chronic kidney disease with stage 1 through stage 4 chronic kidney disease, or unspecified chronic kidney disease ([facility]/HCC) Stage 3a chronic kidney disease (HCC) ([facility]) Acquired hypothyroidism ([facility]) Unspecified hypothyroidism Mixed hyperlipidemia ([facility] [facility]) Mixed hyperlipidemia Anxiety Anxiety state, unspecified Chronic midline low back pain without sciatica- Primary DDD (degenerative disc disease), thoracic Degeneration of thoracic or thoracolumbar intervertebral disc Degeneration of intervertebral disc of lumbar region, unspecified whether pain present documented in this encounter [facility] HealthcareEvaluation note* Diagnosis Type 2 diabetes mellitus without complication, without long-term current use of insulin ([facility])- Primary Seasonal allergic rhinitis due to pollen Darcy albicans infection Obstructive sleep apnea syndrome Obstructive sleep apnea (adult) (pediatric) Essential hypertension (CMS/HCC) Unspecified essential hypertension Stage 3a chronic kidney disease (HCC) ([facility]) Acquired hypothyroidism ([facility]) Unspecified hypothyroidism Encounter for immunization- Primary Type 2 diabetes mellitus without complication, without long-term current use of insulin ([facility]) Obstructive sleep apnea syndrome Obstructive sleep apnea (adult) (pediatric) Essential hypertension ([facility]/HCC) Unspecified essential hypertension Type 2 diabetes mellitus with stage 2 chronic kidney disease, without long-term current use of insulin ([facility]/HCC) Mixed hyperlipidemia ([facility]/HCC) Mixed hyperlipidemia Vaginal irritation Pruritus of [...] (pediatric) Essential hypertension (CMS/HCC) Unspecified essential hypertension LARSON (nonalcoholic steatohepatitis) Other chronic nonalcoholic liver disease Hypertensive chronic kidney disease with stage 1 through stage 4 chronic kidney disease, or unspecified chronic kidney disease (CMS/HCC) Stage 3a chronic kidney disease (HCC) (CMS/HCC) Acquired hypothyroidism ([facility]/HCC) Unspecified hypothyroidism Mixed hyperlipidemia ([facility]) Mixed hyperlipidemia Anxiety Anxiety state, unspecified Chronic midline low back pain without sciatica- Primary DDD (degenerative disc disease), thoracic Degeneration of thoracic or thoracolumbar intervertebral disc Degeneration of intervertebral disc of lumbar region, unspecified whether pain present documented in this encounter [facility] HealthcareEvaluation note* Diagnosis Type 2 diabetes mellitus without complication, without long-term current use of insulin ([facility])- Primary Seasonal allergic rhinitis due to pollen Darcy albicans infection Obstructive sleep apnea syndrome Obstructive sleep apnea (adult) (pediatric) Essential hypertension (CMS/HCC) Unspecified essential hypertension Stage 3a chronic kidney disease (HCC) ([facility]) Acquired hypothyroidism ([facility]) Unspecified hypothyroidism Encounter for immunization- Primary Type 2 diabetes mellitus without complication, without long-term current use of insulin ([facility]) Obstructive sleep apnea syndrome Obstructive sleep apnea (adult) (pediatric) Essential hypertension (CMS/HCC) Unspecified essential hypertension Type 2 diabetes mellitus with stage 2 chronic kidney disease, without long-term current use of insulin ([facility]/HCC) Mixed hyperlipidemia ([facility]/HCC) Mixed hyperlipidemia Vaginal irritation Pruritus of [...] (pediatric) Essential hypertension (CMS/HCC) Unspecified essential hypertension LARSON (nonalcoholic steatohepatitis) Other chronic nonalcoholic liver disease Hypertensive chronic kidney disease with stage 1 through stage 4 chronic kidney disease, or unspecified chronic kidney disease (CMS/HCC) Stage 3a chronic kidney disease (HCC) (CMS/HCC) Acquired hypothyroidism (CMS/HCC) Unspecified hypothyroidism Mixed hyperlipidemia (CMS/HCC) Mixed hyperlipidemia Anxiety Anxiety state, unspecified Chronic midline low back pain without sciatica- Primary DDD (degenerative disc disease), thoracic Degeneration of thoracic or thoracolumbar intervertebral disc Degeneration of intervertebral disc of lumbar region, unspecified whether pain present documented in this encounter [facility] HealthcareEvaluation note* Diagnosis Type 2 diabetes mellitus without complication, without long-term current use of insulin ([facility])- Primary Seasonal allergic rhinitis due to pollen Darcy albicans infection Obstructive sleep apnea syndrome Obstructive sleep apnea (adult) (pediatric) Essential hypertension (CMS/HCC) Unspecified essential hypertension Stage 3a chronic kidney disease (HCC) (CMS/HCC) Acquired hypothyroidism ([facility]/HCC) Unspecified hypothyroidism Encounter for immunization- Primary Type 2 diabetes mellitus without complication, without long-term current use of insulin ([facility]) Obstructive sleep apnea syndrome Obstructive sleep apnea (adult) (pediatric) Essential hypertension ([facility]/HCC) Unspecified essential hypertension Type 2 diabetes mellitus [...] (CMS/HCC) Urgency incontinence Urge incontinence Acquired hypothyroidism ([facility]/HCC) Unspecified hypothyroidism Type 2 diabetes mellitus with stage 3a chronic kidney disease, without long-term current use of insulin (HCC) (CMS/HCC) Mixed hyperlipidemia (CMS/HCC) Mixed hyperlipidemia Type 2 diabetes mellitus with diabetic polyneuropathy, without long-term current use of insulin (CMS/HCC)- Primary Urinary frequency Obstructive sleep apnea syndrome Obstructive sleep apnea (adult) (pediatric) Essential hypertension (CMS/HCC) Unspecified essential hypertension LARSON (nonalcoholic steatohepatitis) Other chronic nonalcoholic liver disease Hypertensive chronic kidney disease with stage 1 through stage 4 chronic kidney disease, or unspecified chronic kidney disease (CMS/HCC) Stage 3a chronic kidney disease (HCC) (CMS/HCC) Acquired hypothyroidism (CMS/HCC) Unspecified hypothyroidism Mixed hyperlipidemia (CMS/HCC) Mixed hyperlipidemia Anxiety Anxiety state, unspecified Chronic midline low back pain without sciatica- Primary DDD (degenerative disc disease), thoracic Degeneration of thoracic or thoracolumbar intervertebral disc Degeneration of intervertebral disc of lumbar region, unspecified whether pain present documented in this encounter [facility] HealthcareEvaluation note* Diagnosis Type 2 diabetes mellitus without complication, without long-term current use of insulin (CMS/[facility])- Primary Seasonal allergic rhinitis due to pollen Darcy albicans infection Obstructive sleep apnea syndrome Obstructive sleep apnea (adult) (pediatric) Essential hypertension (CMS/HCC) Unspecified essential hypertension Stage 3a chronic kidney disease (HCC) ([facility]/HCC) Acquired hypothyroidism ([facility]) Unspecified hypothyroidism Encounter for immunization- Primary Type 2 diabetes mellitus without complication, without long-term current use of insulin (CMS/HCC) Obstructive sleep apnea syndrome Obstructive sleep apnea (adult) (pediatric) Essential hypertension (CMS/HCC) Unspecified essential hypertension Type 2 diabetes mellitus with stage 2 chronic kidney disease, without long-term current use of insulin (CMS/HCC) Mixed hyperlipidemia ([facility]/HCC) Mixed hyperlipidemia Vaginal irritation Pruritus of genital organs Wellness examination- Primary Type 2 diabetes mellitus with diabetic polyneuropathy, without long-term current use of insulin (CMS/HCC) Obstructive sleep apnea syndrome Obstructive sleep apnea (adult) (pediatric) Essential hypertension (CMS/HCC) Unspecified essential hypertension Stage 3a chronic kidney disease (HCC) ([facility]/HCC) Urgency incontinence Urge incontinence Acquired hypothyroidism ([facility]/HCC) Unspecified hypothyroidism Type 2 diabetes mellitus with stage 3a chronic kidney disease, without long-term current use of insulin (HCC) (CMS/HCC) Mixed hyperlipidemia (CMS/HCC) Mixed hyperlipidemia Type 2 diabetes mellitus with diabetic polyneuropathy, without long-term current use of insulin (CMS/HCC)- Primary Urinary frequency Obstructive sleep apnea syndrome Obstructive sleep apnea (adult) (pediatric) Essential hypertension (CMS/HCC) Unspecified essential hypertension LARSON (nonalcoholic steatohepatitis) Other chronic nonalcoholic liver disease Hypertensive chronic kidney disease with stage 1 through stage 4 chronic kidney disease, or unspecified chronic kidney disease (CMS/HCC) Stage 3a chronic kidney disease (HCC) (CMS/HCC) Acquired hypothyroidism (CMS/HCC) Unspecified hypothyroidism Mixed hyperlipidemia (CMS/HCC) Mixed hyperlipidemia Anxiety Anxiety state, unspecified Diabetic polyneuropathy associated with type 2 diabetes mellitus (CMS/HCC)- Primary 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 documented in this encounter [facility] HealthcareEvaluation note* Diagnosis Type 2 diabetes mellitus [...] (pediatric) Essential hypertension (CMS/HCC) Unspecified essential hypertension LARSON (nonalcoholic steatohepatitis) Other chronic nonalcoholic liver disease Hypertensive chronic kidney disease with stage 1 through stage 4 chronic kidney disease, or unspecified chronic kidney disease (CMS/HCC) Stage 3a chronic kidney disease (HCC) (CMS/HCC) Acquired hypothyroidism (CMS/HCC) Unspecified hypothyroidism Mixed hyperlipidemia (CMS/HCC) Mixed hyperlipidemia Anxiety Anxiety state, unspecified Postmenopausal atrophic vaginitis- Primary Breast cancer screening by mammogram Urgency incontinence Urge incontinence Hot flashes documented in this encounter [facility] HealthcareEvaluation note* Diagnosis Type 2 diabetes [...] (pediatric) Essential hypertension (CMS/HCC) Unspecified essential hypertension LARSON (nonalcoholic steatohepatitis) Other chronic nonalcoholic liver disease Hypertensive chronic kidney disease with stage 1 through stage 4 chronic kidney disease, or unspecified chronic kidney disease (CMS/HCC) Stage 3a chronic kidney disease (HCC) (CMS/HCC) Acquired hypothyroidism (CMS/HCC) Unspecified hypothyroidism Mixed hyperlipidemia (CMS/HCC) Mixed hyperlipidemia Anxiety Anxiety state, unspecified Family history of colon cancer Family history of malignant neoplasm of gastrointestinal tract Portal venous hypertension (CMS/HCC) Obstructive sleep apnea syndrome Obstructive sleep apnea (adult) (pediatric) LARSON (nonalcoholic steatohepatitis) Other chronic nonalcoholic liver disease documented in this encounter [facility] HealthcareEvaluation note* Diagnosis Type 2 diabetes [...] (pediatric) Essential hypertension (CMS/HCC) Unspecified essential hypertension LARSON (nonalcoholic steatohepatitis) Other chronic nonalcoholic liver disease Hypertensive chronic kidney disease with stage 1 through stage 4 chronic kidney disease, or unspecified chronic kidney disease (CMS/HCC) Stage 3a chronic kidney disease (HCC) (CMS/HCC) Acquired hypothyroidism (CMS/HCC) Unspecified hypothyroidism Mixed hyperlipidemia (CMS/HCC) Mixed hyperlipidemia Anxiety Anxiety state, unspecified Wellness examination- Primary Obstructive sleep apnea syndrome Obstructive sleep apnea (adult) (pediatric) Essential hypertension (CMS/HCC) Unspecified essential hypertension Fatty liver Other chronic nonalcoholic liver disease Gastroesophageal reflux disease without esophagitis Esophageal reflux Acquired hypothyroidism (CMS/HCC) Unspecified hypothyroidism Mixed hyperlipidemia (CMS/HCC) Mixed hyperlipidemia Type 2 diabetes mellitus with stage 3a chronic kidney disease, without long-term current use of insulin (HCC) (CMS/HCC) Type 2 diabetes mellitus with diabetic chronic kidney disease (CMS/HCC) Chronic kidney disease, stage 3a (HCC) (CMS/HCC) Stage 3a chronic kidney disease (HCC) (CMS/HCC) documented in this encounter [facility] HealthcareEvaluation note* Diagnosis Type 2 diabetes [...] (pediatric) Essential hypertension (CMS/HCC) Unspecified essential hypertension LARSON (nonalcoholic steatohepatitis) Other chronic nonalcoholic liver disease Hypertensive chronic kidney disease with stage 1 through stage 4 chronic kidney disease, or unspecified chronic kidney disease (CMS/HCC) Stage 3a chronic kidney disease (HCC) ([facility]/HCC) Acquired hypothyroidism ([facility]/HCC) Unspecified hypothyroidism Mixed hyperlipidemia ([facility]/HCC) Mixed hyperlipidemia Anxiety Anxiety state, unspecified Wellness examination- Primary Obstructive sleep apnea syndrome Obstructive sleep apnea (adult) (pediatric) Essential hypertension (CMS/HCC) Unspecified essential hypertension Fatty liver Other chronic nonalcoholic liver disease Gastroesophageal reflux disease without esophagitis Esophageal reflux Acquired hypothyroidism ([facility]/HCC) Unspecified hypothyroidism Mixed hyperlipidemia ([facility]/HCC) Mixed hyperlipidemia Type 2 diabetes mellitus with stage 3a chronic kidney disease, without long-term current use of insulin (HCC) ([facility]/HCC) Type 2 diabetes mellitus with diabetic chronic kidney disease ([facility]/HCC) Chronic kidney disease, stage 3a (HCC) ([facility]/HCC) Stage 3a chronic kidney disease (HCC) ([facility]) History of bilateral knee replacement- Primary documented in this encounter [facility] HealthcareEvaluation note* Diagnosis Type 2 diabetes mellitus without complication, without long-term current use of insulin- Primary Seasonal allergic rhinitis due to pollen Darcy albicans infection Obstructive sleep apnea syndrome Obstructive sleep apnea (adult) (pediatric) Essential hypertension ([facility]/HCC) Unspecified essential hypertension Stage 3a chronic kidney disease (HCC) ([facility]) Acquired hypothyroidism ([facility]) Unspecified hypothyroidism Encounter for immunization- Primary Type 2 diabetes mellitus without complication, without long-term current use of insulin Obstructive sleep apnea syndrome Obstructive sleep apnea (adult) (pediatric) Essential hypertension ([facility]/HCC) Unspecified essential hypertension Type 2 diabetes mellitus with stage 2 chronic kidney disease, without long-term current use of insulin ([facility]) Mixed hyperlipidemia ([facility]) Mixed hyperlipidemia Vaginal irritation Pruritus of genital organs Wellness examination- Primary Type 2 diabetes mellitus with diabetic polyneuropathy, without long-term current use of insulin ([facility]) Obstructive sleep apnea syndrome Obstructive sleep apnea (adult) (pediatric) Essential hypertension ([facility]/HCC) Unspecified essential hypertension Stage 3a chronic kidney disease (HCC) ([facility]) Urgency incontinence Urge incontinence Acquired hypothyroidism ([facility]) Unspecified hypothyroidism Type 2 diabetes mellitus with stage 3a chronic kidney disease, without long-term current use of insulin (HCC) ([facility]) Mixed hyperlipidemia ([facility]) Mixed hyperlipidemia Type 2 diabetes mellitus with diabetic polyneuropathy, without long-term current use of insulin ([facility])- Primary Urinary frequency Obstructive sleep apnea syndrome Obstructive sleep apnea (adult) (pediatric) Essential hypertension (CMS/HCC) Unspecified essential hypertension LARSON (nonalcoholic steatohepatitis) Other chronic nonalcoholic liver disease Hypertensive chronic kidney disease with stage 1 through stage 4 chronic kidney disease, or unspecified chronic kidney disease (CMS/HCC) Stage 3a chronic kidney disease (HCC) (CMS/HCC) Acquired hypothyroidism (CMS/HCC) Unspecified hypothyroidism Mixed hyperlipidemia (CMS/HCC) Mixed hyperlipidemia Anxiety Anxiety state, unspecified Wellness examination- Primary Obstructive sleep apnea syndrome Obstructive sleep apnea (adult) (pediatric) Essential hypertension (CMS/HCC) Unspecified essential hypertension Fatty liver Other chronic nonalcoholic liver disease Gastroesophageal reflux disease without esophagitis Esophageal reflux Acquired hypothyroidism (CMS/HCC) Unspecified hypothyroidism Mixed hyperlipidemia (CMS/HCC) Mixed hyperlipidemia Type 2 diabetes mellitus with stage 3a chronic kidney disease, without long-term current use of insulin (HCC) (CMS/HCC) Type 2 diabetes mellitus with diabetic chronic kidney disease (CMS/HCC) Chronic kidney disease, stage 3a (HCC) (CMS/HCC) Stage 3a chronic kidney disease (HCC) (CMS/HCC) Type 2 diabetes mellitus with diabetic polyneuropathy, without long-term current use of insulin ([facility]) documented in this encounter [facility] HealthcareEvaluation note* Diagnosis Type 2 diabetes mellitus without complication, without long-term current use of insulin- Primary Seasonal allergic rhinitis due to pollen Darcy albicans infection Obstructive sleep apnea syndrome Obstructive sleep apnea (adult) (pediatric) Essential hypertension (CMS/HCC) Unspecified essential hypertension Stage 3a chronic kidney disease (HCC) (CMS/HCC) Acquired hypothyroidism (CMS/HCC) Unspecified hypothyroidism Encounter for immunization- Primary Type 2 diabetes mellitus without complication, without long-term current use of insulin Obstructive sleep apnea syndrome Obstructive sleep apnea [...] (pediatric) Essential hypertension (CMS/HCC) Unspecified essential hypertension LARSON (nonalcoholic steatohepatitis) Other chronic nonalcoholic liver disease Hypertensive chronic kidney disease with stage 1 through stage 4 chronic kidney disease, or unspecified chronic kidney disease (CMS/HCC) Stage 3a chronic kidney disease (HCC) (CMS/HCC) Acquired hypothyroidism (CMS/HCC) Unspecified hypothyroidism Mixed hyperlipidemia (CMS/HCC) Mixed hyperlipidemia Anxiety Anxiety state, unspecified Wellness examination- Primary Obstructive sleep apnea syndrome Obstructive sleep apnea (adult) (pediatric) Essential hypertension (CMS/HCC) Unspecified essential hypertension Fatty liver Other chronic nonalcoholic liver disease Gastroesophageal reflux disease without esophagitis Esophageal reflux Acquired hypothyroidism (CMS/HCC) Unspecified hypothyroidism Mixed hyperlipidemia (CMS/HCC) Mixed hyperlipidemia Type 2 diabetes mellitus with stage 3a chronic kidney disease, without long-term current use of insulin (HCC) (CMS/HCC) Type 2 diabetes mellitus with diabetic chronic kidney disease (CMS/HCC) Chronic kidney disease, stage 3a (HCC) (CMS/HCC) Stage 3a chronic kidney disease (HCC) (CMS/HCC) Type 2 diabetes mellitus with stage 2 chronic kidney disease, without long-term current use of insulin (CMS/HCC) documented in this encounter [facility] HealthcareEvaluation note* Diagnosis Portal venous hypertension (CMS-HCC)- Primary Family history of colon cancer Family history of malignant neoplasm of gastrointestinal tract Abnormal liver enzymes Gastroesophageal reflux disease, unspecified whether esophagitis present Family history of esophageal cancer Family history of malignant neoplasm of gastrointestinal tract Sleep apnea, unspecified type [facility] Diagnosis Portal venous hypertension (CMS-HCC)- Primary Family history of colon cancer Family history of malignant neoplasm of gastrointestinal tract Abnormal liver enzymes Gastroesophageal reflux disease, unspecified whether esophagitis present Family history of esophageal cancer Family history of malignant neoplasm of gastrointestinal tract [facility]* Diagnosis Onset Date Resolution Status Admit Date CKD (chronic kidney disease) stage 3, GFR 30-59 ml/min acute February 05 9:50am Erythrocytosis acute February 05, 2 025 9:50am Hypertensive chronic kidney disease with stage 1 through stage 4 chronic ki acute February 05, 2025 9: 50am Hyperuricemia acute February 05, 25 9:50am Microscopic hematuria acute February 05, 2025 9:50am LARSON (nonalcoholic steatohepatitis) acute February 05, 2025 9:50am Type 2 diabetes mellitus wit h diabetic chronic kidney disease acute February 05, 2025 9:50am Vitamin D deficiency acute February 05, 2025 9:50am [facility] Work Phone: Evaluation note* Diagnosis Type 2 diabetes mellitus without complication, without long-term current use of insulin- Primary Seasonal allergic rhinitis due to pollen Darcy albicans infection Obstructive sleep apnea syndrome Obstructive sleep apnea (adult) (pediatric) Essential hypertension (CMS/HCC) Unspecified essential hypertension Stage 3a chronic kidney disease (HCC) (CMS/HCC) Acquired hypothyroidism (CMS/HCC) Unspecified hypothyroidism Encounter for immunization- Primary Type 2 diabetes mellitus without complication, without long-term current use of insulin Obstructive sleep apnea syndrome Obstructive sleep apnea [...] (pediatric) Essential hypertension (CMS/HCC) Unspecified essential hypertension LARSON (nonalcoholic steatohepatitis) Other chronic nonalcoholic liver disease Hypertensive chronic kidney disease with stage 1 through stage 4 chronic kidney disease, or unspecified chronic kidney disease (CMS/HCC) Stage 3a chronic kidney disease (HCC) (CMS/HCC) Acquired hypothyroidism (CMS/HCC) Unspecified hypothyroidism Mixed hyperlipidemia (CMS/HCC) Mixed hyperlipidemia Anxiety Anxiety state, unspecified Wellness examination- Primary Obstructive sleep apnea syndrome Obstructive sleep apnea (adult) (pediatric) Essential hypertension (CMS/HCC) Unspecified essential hypertension Fatty liver Other chronic nonalcoholic liver disease Gastroesophageal reflux disease without esophagitis Esophageal reflux Acquired hypothyroidism (CMS/HCC) Unspecified hypothyroidism Mixed hyperlipidemia (CMS/HCC) Mixed hyperlipidemia Type 2 diabetes mellitus with stage 3a chronic kidney disease, without long-term current use of insulin (HCC) (CMS/HCC) Type 2 diabetes mellitus with diabetic chronic kidney disease (CMS/HCC) Chronic kidney disease, stage 3a (HCC) (CMS/HCC) Stage 3a chronic kidney disease (HCC) (CMS/HCC) Pain in both feet- Primary Diabetic polyneuropathy associated with type 2 diabetes mellitus (CMS/HCC) Onychomycosis Dermatophytosis of nail Onychodystrophy Other specified disease of nail documented in this encounter [facility] HealthcareEvaluation note* Diagnosis Type 2 diabetes mellitus without complication, without long-term current use of insulin- Primary Seasonal allergic rhinitis due to pollen Darcy albicans infection Obstructive sleep apnea syndrome Obstructive sleep apnea (adult) (pediatric) Essential hypertension (CMS/HCC) Unspecified essential hypertension Stage 3a chronic kidney disease (HCC) ([facility]/HCC) Acquired hypothyroidism ([facility]/HCC) Unspecified hypothyroidism Encounter for immunization- Primary Type 2 diabetes mellitus without complication, without long-term current use of insulin Obstructive sleep apnea syndrome Obstructive sleep apnea (adult) (pediatric) Essential hypertension (CMS/HCC) Unspecified essential hypertension Type 2 diabetes mellitus with stage 2 chronic kidney disease, without long-term current use of insulin (CMS/HCC) Mixed hyperlipidemia ([facility]/HCC) Mixed hyperlipidemia Vaginal irritation Pruritus of [...] use of insulin (HCC) (CMS/HCC) Mixed hyperlipidemia ([facility]/HCC) Mixed hyperlipidemia Type 2 diabetes mellitus with diabetic polyneuropathy, without long-term current use of insulin (CMS/HCC)- Primary Urinary frequency Obstructive sleep apnea syndrome Obstructive sleep apnea (adult) (pediatric) Essential hypertension (CMS/HCC) Unspecified essential hypertension LARSON (nonalcoholic steatohepatitis) Other chronic nonalcoholic liver disease Hypertensive chronic kidney disease with stage 1 through stage 4 chronic kidney disease, or unspecified chronic kidney disease (CMS/HCC) Stage 3a chronic kidney disease (HCC) (CMS/HCC) Acquired hypothyroidism (CMS/HCC) Unspecified hypothyroidism Mixed hyperlipidemia (CMS/HCC) Mixed hyperlipidemia Anxiety Anxiety state, unspecified Wellness examination- Primary Obstructive sleep apnea syndrome Obstructive sleep apnea (adult) (pediatric) Essential hypertension (CMS/HCC) Unspecified essential hypertension Fatty liver Other chronic nonalcoholic liver disease Gastroesophageal reflux disease without esophagitis Esophageal reflux Acquired hypothyroidism (CMS/HCC) Unspecified hypothyroidism Mixed hyperlipidemia (CMS/HCC) Mixed hyperlipidemia Type 2 diabetes mellitus with stage 3a chronic kidney disease, without long-term current use of insulin (HCC) (CMS/HCC) Type 2 diabetes mellitus with diabetic chronic kidney disease (CMS/HCC) Chronic kidney disease, stage 3a (HCC) (CMS/HCC) Stage 3a chronic kidney disease (HCC) (CMS/HCC) Xerostomia- Primary Disturbance of salivary secretion Type 2 diabetes mellitus with stage 3a chronic kidney disease, without long-term current use of insulin (HCC) ([facility]/HCC) documented in this encounter [facility] HealthcareEvaluation note* Diagnosis Type 2 diabetes mellitus without complication, without long-term current use of insulin (HCC)- Primary Seasonal allergic rhinitis due to pollen Dar[place] albicans infection Obstructive sleep apnea syndrome Obstructive sleep apnea (adult) (pediatric) Essential hypertension Unspecified essential hypertension Stage 3a chronic kidney disease ([facility]-HCC) Acquired hypothyroidism Unspecified hypothyroidism Encounter for immunization- Primary Type 2 diabetes mellitus without complication, without long-term current use of insulin (HCC) Obstructive sleep apnea syndrome Obstructive sleep apnea (adult) (pediatric) Essential hypertension Unspecified essential hypertension Type 2 diabetes mellitus with stage 2 chronic kidney disease, without long-term current use of insulin (HCC) Mixed hyperlipidemia Mixed hyperlipidemia Vaginal irritation Pruritus of genital organs Wellness examination- Primary Type 2 diabetes mellitus with diabetic polyneuropathy, without long-term current use of insulin (HCC) Obstructive sleep apnea syndrome Obstructive sleep apnea (adult) (pediatric) Essential hypertension Unspecified essential hypertension Stage 3a chronic kidney disease ([facility]-HCC) Urgency incontinence Urge incontinence Acquired hypothyroidism Unspecified hypothyroidism Type 2 diabetes mellitus with stage 3a chronic kidney disease, without long-term current use of insulin (HCC) Mixed hyperlipidemia Mixed hyperlipidemia Type 2 diabetes mellitus with diabetic polyneuropathy, without long-term current use of insulin (HCC)- Primary Urinary frequency Obstructive sleep apnea syndrome Obstructive sleep apnea (adult) (pediatric) Essential hypertension Unspecified essential hypertension LARSON (nonalcoholic steatohepatitis) Other chronic nonalcoholic liver disease Hypertensive chronic kidney disease with stage 1 through stage 4 chronic kidney disease, or unspecified chronic kidney disease Stage 3a chronic kidney disease ([facility]-HCC) Acquired hypothyroidism Unspecified hypothyroidism Mixed hyperlipidemia Mixed hyperlipidemia Anxiety Anxiety state, unspecified Wellness examination- Primary Obstructive sleep apnea syndrome Obstructive sleep apnea (adult) (pediatric) Essential hypertension Unspecified essential hypertension Fatty liver Other chronic nonalcoholic liver disease Gastroesophageal reflux disease without esophagitis Esophageal reflux Acquired hypothyroidism Unspecified hypothyroidism Mixed hyperlipidemia Mixed hyperlipidemia Type 2 diabetes mellitus with stage 3a chronic kidney disease, without long-term current use of insulin (HCC) Type 2 diabetes mellitus with diabetic chronic kidney disease (HCC) Chronic kidney disease, stage 3a ([facility]-HCC) Stage 3a chronic kidney disease ([facility]) Xerostomia- Primary Disturbance of salivary secretion Type 2 diabetes mellitus with stage 3a chronic kidney disease, without long-term current use of insulin (HCC) Type 2 diabetes mellitus with stage 2 chronic kidney disease, without long-term current use of insulin ([facility]) documented in this encounter [facility] HealthcareEvaluation note* Diagnosis Type 2 diabetes mellitus without complication, without long-term current use of insulin (HCC)- Primary Seasonal allergic rhinitis due to pollen [place] albicans infection Obstructive sleep apnea syndrome Obstructive sleep apnea (adult) (pediatric) Essential hypertension Unspecified essential hypertension Stage 3a chronic kidney disease ([facility]-HCC) Acquired hypothyroidism Unspecified hypothyroidism Encounter for immunization- Primary Type 2 diabetes mellitus without complication, without long-term current use of insulin (HCC) Obstructive sleep apnea syndrome Obstructive sleep apnea (adult) (pediatric) Essential hypertension Unspecified essential hypertension Type 2 diabetes mellitus with stage 2 chronic kidney disease, without long-term current use of insulin (HCC) Mixed hyperlipidemia Mixed hyperlipidemia Vaginal irritation Pruritus of genital organs Wellness examination- Primary Type 2 diabetes mellitus with diabetic polyneuropathy, without long-term current use of insulin (HCC) Obstructive sleep apnea syndrome Obstructive sleep apnea (adult) (pediatric) Essential hypertension Unspecified essential hypertension Stage 3a chronic kidney disease ([facility]-HCC) Urgency incontinence Urge incontinence Acquired hypothyroidism Unspecified hypothyroidism Type 2 diabetes mellitus with stage 3a chronic kidney disease, without long-term current use of insulin (HCC) Mixed hyperlipidemia Mixed hyperlipidemia Type 2 diabetes mellitus with diabetic polyneuropathy, without long-term current use of insulin (HCC)- Primary Urinary frequency Obstructive sleep apnea syndrome Obstructive sleep apnea (adult) (pediatric) Essential hypertension Unspecified essential hypertension LARSON (nonalcoholic steatohepatitis) Other chronic nonalcoholic liver disease Hypertensive chronic kidney disease with stage 1 through stage 4 chronic kidney disease, or unspecified chronic kidney disease Stage 3a chronic kidney disease ([facility]-HCC) Acquired hypothyroidism Unspecified hypothyroidism Mixed hyperlipidemia Mixed hyperlipidemia Anxiety Anxiety state, unspecified Wellness examination- Primary Obstructive sleep apnea syndrome Obstructive sleep apnea (adult) (pediatric) Essential hypertension Unspecified essential hypertension Fatty liver Other chronic nonalcoholic liver disease Gastroesophageal reflux disease without esophagitis Esophageal reflux Acquired hypothyroidism Unspecified hypothyroidism Mixed hyperlipidemia Mixed hyperlipidemia Type 2 diabetes mellitus with stage 3a chronic kidney disease, without long-term current use of insulin ([facility]) Type 2 diabetes mellitus with diabetic chronic kidney disease ([facility]) Chronic kidney disease, stage 3a ([facility]) Stage 3a chronic kidney disease ([facility]) Xerostomia- Primary Disturbance of salivary secretion Type 2 diabetes mellitus with stage 3a chronic kidney disease, without long-term current use of insulin ([facility]) Lumbar pain Lumbago Lumbar pain Lumbago documented in this encounter [facility] HealthcareEvaluation note* Diagnosis Type 2 diabetes mellitus without complication, without long-term current use of insulin ([facility])- Primary Seasonal allergic rhinitis due to pollen [place] albicans infection Obstructive sleep apnea syndrome Obstructive sleep apnea (adult) (pediatric) Essential hypertension Unspecified essential hypertension Stage 3a chronic kidney disease ([facility]-HCC) Acquired hypothyroidism Unspecified hypothyroidism Encounter for immunization- Primary Type 2 diabetes mellitus without complication, without long-term current use of insulin (HCC) Obstructive sleep apnea syndrome Obstructive sleep apnea (adult) (pediatric) Essential hypertension Unspecified essential hypertension Type 2 diabetes mellitus with stage 2 chronic kidney disease, without long-term current use of insulin ([facility]) Mixed hyperlipidemia Mixed hyperlipidemia Vaginal irritation Pruritus of genital organs Wellness examination- Primary Type 2 diabetes mellitus with diabetic polyneuropathy, without long-term current use of insulin (HCC) Obstructive sleep apnea syndrome Obstructive sleep apnea (adult) (pediatric) Essential hypertension Unspecified essential hypertension Stage 3a chronic kidney disease ([facility]) Urgency incontinence Urge incontinence Acquired hypothyroidism Unspecified hypothyroidism Type 2 diabetes mellitus with stage 3a chronic kidney disease, without long-term current use of insulin (HCC) Mixed hyperlipidemia Mixed hyperlipidemia Type 2 diabetes mellitus with diabetic polyneuropathy, without long-term current use of insulin (HCC)- Primary Urinary frequency Obstructive sleep apnea syndrome Obstructive sleep apnea (adult) (pediatric) Essential hypertension Unspecified essential hypertension LARSON (nonalcoholic steatohepatitis) Other chronic nonalcoholic liver disease Hypertensive chronic kidney disease with stage 1 through stage 4 chronic kidney disease, or unspecified chronic kidney disease Stage 3a chronic kidney disease ([facility]-HCC) Acquired hypothyroidism Unspecified hypothyroidism Mixed hyperlipidemia Mixed hyperlipidemia Anxiety Anxiety state, unspecified Wellness examination- Primary Obstructive sleep apnea syndrome Obstructive sleep apnea (adult) (pediatric) Essential hypertension Unspecified essential hypertension Fatty liver Other chronic nonalcoholic liver disease Gastroesophageal reflux disease without esophagitis Esophageal reflux Acquired hypothyroidism Unspecified hypothyroidism Mixed hyperlipidemia Mixed hyperlipidemia Type 2 diabetes mellitus with stage 3a chronic kidney disease, without long-term current use of insulin (HCC) Type 2 diabetes mellitus with diabetic chronic kidney disease (HCC) Chronic kidney disease, stage 3a (CMS-HCC) Stage 3a chronic kidney disease ([facility]-HCC) Xerostomia- Primary Disturbance of salivary secretion Type 2 diabetes mellitus with stage 3a chronic kidney disease, without long-term current use of insulin (HCC) Acute pain of right shoulder- Primary Neck pain Cervicalgia Cervical radiculopathy Brachial neuritis or radiculitis nos documented in this encounter [facility] HealthcareEvaluation note* Diagnosis Type 2 diabetes mellitus without complication, without long-term current use of insulin (HCC)- Primary Seasonal allergic rhinitis due to pollen [place] albicans infection Obstructive sleep apnea syndrome Obstructive sleep apnea (adult) (pediatric) Essential hypertension Unspecified essential hypertension Stage 3a chronic kidney disease ([facility]-HCC) Acquired hypothyroidism Unspecified hypothyroidism Encounter for immunization- Primary Type 2 diabetes mellitus without complication, without long-term current use of insulin (HCC) Obstructive sleep apnea syndrome Obstructive sleep apnea (adult) (pediatric) Essential hypertension Unspecified essential hypertension Type 2 diabetes mellitus with stage 2 chronic kidney disease, without long-term current use of insulin (HCC) Mixed hyperlipidemia Mixed hyperlipidemia Vaginal irritation Pruritus of genital organs Wellness examination- Primary Type 2 diabetes mellitus with diabetic polyneuropathy, without long-term current use of insulin (HCC) Obstructive sleep apnea syndrome Obstructive sleep apnea (adult) (pediatric) Essential hypertension Unspecified essential hypertension Stage 3a chronic kidney disease ([facility]-HCC) Urgency incontinence Urge incontinence Acquired hypothyroidism Unspecified hypothyroidism Type 2 diabetes mellitus with stage 3a chronic kidney disease, without long-term current use of insulin (HCC) Mixed hyperlipidemia Mixed hyperlipidemia Type 2 diabetes mellitus with diabetic polyneuropathy, without long-term current use of insulin (HCC)- Primary Urinary frequency Obstructive sleep apnea syndrome Obstructive sleep apnea (adult) (pediatric) Essential hypertension Unspecified essential hypertension LARSON (nonalcoholic steatohepatitis) Other chronic nonalcoholic liver disease Hypertensive chronic kidney disease with stage 1 through stage 4 chronic kidney disease, or unspecified chronic kidney disease Stage 3a chronic kidney disease ([facility]-HCC) Acquired hypothyroidism Unspecified hypothyroidism Mixed hyperlipidemia Mixed hyperlipidemia Anxiety Anxiety state, unspecified Wellness examination- Primary Obstructive sleep apnea syndrome Obstructive sleep apnea (adult) (pediatric) Essential hypertension Unspecified essential hypertension Fatty liver Other chronic nonalcoholic liver disease Gastroesophageal reflux disease without esophagitis Esophageal reflux Acquired hypothyroidism Unspecified hypothyroidism Mixed hyperlipidemia Mixed hyperlipidemia Type 2 diabetes mellitus with stage 3a chronic kidney disease, without long-term current use of insulin (HCC) Type 2 diabetes mellitus with diabetic chronic kidney disease (HCC) Chronic kidney disease, stage 3a (CMS-HCC) Stage 3a chronic kidney disease ([facility]) Xerostomia- Primary Disturbance of salivary secretion Type 2 diabetes mellitus with stage 3a chronic kidney disease, without long-term current use of insulin (HCC) Chronic midline low back pain without sciatica- Primary Nasal drainage Essential hypertension Unspecified essential hypertension Stage 3a chronic kidney disease ([facility]-HCC) documented in this encounter [facility] HealthcareEvaluation note* Diagnosis Type 2 diabetes mellitus without complication, without long-term current use of insulin (HCC)- Primary Seasonal allergic rhinitis due to pollen [place] albicans infection Obstructive sleep apnea syndrome Obstructive sleep apnea (adult) (pediatric) Essential hypertension Unspecified essential hypertension Stage 3a chronic kidney disease ([facility]-HCC) Acquired hypothyroidism Unspecified hypothyroidism Encounter for immunization- Primary Type 2 diabetes mellitus without complication, without long-term current use of insulin (HCC) Obstructive sleep apnea syndrome Obstructive sleep apnea (adult) (pediatric) Essential hypertension Unspecified essential hypertension Type 2 diabetes mellitus with stage 2 chronic kidney disease, without long-term current use of insulin (HCC) Mixed hyperlipidemia Mixed hyperlipidemia Vaginal irritation Pruritus of genital organs Wellness examination- Primary Type 2 diabetes mellitus with diabetic polyneuropathy, without long-term current use of insulin (HCC) Obstructive sleep apnea syndrome Obstructive sleep apnea (adult) (pediatric) Essential hypertension Unspecified essential hypertension Stage 3a chronic kidney disease ([facility]-HCC) Urgency incontinence Urge incontinence Acquired hypothyroidism Unspecified hypothyroidism Type 2 diabetes mellitus with stage 3a chronic kidney disease, without long-term current use of insulin (HCC) Mixed hyperlipidemia Mixed hyperlipidemia Type 2 diabetes mellitus with diabetic polyneuropathy, without long-term current use of insulin (HCC)- Primary Urinary frequency Obstructive sleep apnea syndrome Obstructive sleep apnea (adult) (pediatric) Essential hypertension Unspecified essential hypertension LARSON (nonalcoholic steatohepatitis) Other chronic nonalcoholic liver disease Hypertensive chronic kidney disease with stage 1 through stage 4 chronic kidney disease, or unspecified chronic kidney disease Stage 3a chronic kidney disease ([facility]-HCC) Acquired hypothyroidism Unspecified hypothyroidism Mixed hyperlipidemia Mixed hyperlipidemia Anxiety Anxiety state, unspecified Wellness examination- Primary Obstructive sleep apnea syndrome Obstructive sleep apnea (adult) (pediatric) Essential hypertension Unspecified essential hypertension Fatty liver Other chronic nonalcoholic liver disease Gastroesophageal reflux disease without esophagitis Esophageal reflux Acquired hypothyroidism Unspecified hypothyroidism Mixed hyperlipidemia Mixed hyperlipidemia Type 2 diabetes mellitus with stage 3a chronic kidney disease, without long-term current use of insulin (HCC) Type 2 diabetes mellitus with diabetic chronic kidney disease (HCC) Chronic kidney disease, stage 3a ([facility]-HCC) Stage 3a chronic kidney disease ([facility]) Xerostomia- Primary Disturbance of salivary secretion Type 2 diabetes mellitus with stage 3a chronic kidney disease, without long-term current use of insulin (HCC) Chronic midline low back pain without sciatica- Primary Nasal drainage Essential hypertension Unspecified essential hypertension Stage 3a chronic kidney disease ([facility]) Neck pain Cervicalgia Cervical radiculopathy Brachial neuritis or radiculitis nos documented in this encounter [facility] HealthcareEvaluation note* Diagnosis Type 2 diabetes mellitus without complication, without long-term current use of insulin ([facility])- Primary Seasonal allergic rhinitis due to pollen [place] albicans infection Obstructive sleep apnea syndrome Obstructive sleep apnea (adult) (pediatric) Essential hypertension Unspecified essential hypertension Stage 3a chronic kidney disease ([facility]-HCC) Acquired hypothyroidism Unspecified hypothyroidism Encounter for immunization- Primary Type 2 diabetes mellitus without complication, without long-term current use of insulin (HCC) Obstructive sleep apnea syndrome Obstructive sleep apnea (adult) (pediatric) Essential hypertension Unspecified essential hypertension Type 2 diabetes mellitus with stage 2 chronic kidney disease, without long-term current use of insulin (HCC) Mixed hyperlipidemia Mixed hyperlipidemia Vaginal irritation Pruritus of genital organs Wellness examination- Primary Type 2 diabetes mellitus with diabetic polyneuropathy, without long-term current use of insulin (HCC) Obstructive sleep apnea syndrome Obstructive sleep apnea (adult) (pediatric) Essential hypertension Unspecified essential hypertension Stage 3a chronic kidney disease ([facility]-HCC) Urgency incontinence Urge incontinence Acquired hypothyroidism Unspecified hypothyroidism Type 2 diabetes mellitus with stage 3a chronic kidney disease, without long-term current use of insulin (HCC) Mixed hyperlipidemia Mixed hyperlipidemia Type 2 diabetes mellitus with diabetic polyneuropathy, without long-term current use of insulin (HCC)- Primary Urinary frequency Obstructive sleep apnea syndrome Obstructive sleep apnea (adult) (pediatric) Essential hypertension Unspecified essential hypertension LARSON (nonalcoholic steatohepatitis) Other chronic nonalcoholic liver disease Hypertensive chronic kidney disease with stage 1 through stage 4 chronic kidney disease, or unspecified chronic kidney disease Stage 3a chronic kidney disease ([facility]-HCC) Acquired hypothyroidism Unspecified hypothyroidism Mixed hyperlipidemia Mixed hyperlipidemia Anxiety Anxiety state, unspecified Wellness examination- Primary Obstructive sleep apnea syndrome Obstructive sleep apnea (adult) (pediatric) Essential hypertension Unspecified essential hypertension Fatty liver Other chronic nonalcoholic liver disease Gastroesophageal reflux disease without esophagitis Esophageal reflux Acquired hypothyroidism Unspecified hypothyroidism Mixed hyperlipidemia Mixed hyperlipidemia Type 2 diabetes mellitus with stage 3a chronic kidney disease, without long-term current use of insulin (HCC) Type 2 diabetes mellitus with diabetic chronic kidney disease (HCC) Chronic kidney disease, stage 3a ([facility]-HCC) Stage 3a chronic kidney disease ([facility]) Xerostomia- Primary Disturbance of salivary secretion Type 2 diabetes mellitus with stage 3a chronic kidney disease, without long-term current use of insulin (HCC) Chronic midline low back pain without sciatica- Primary Nasal drainage Essential hypertension Unspecified essential hypertension Stage 3a chronic kidney disease ([facility]-HCC) Type 2 diabetes mellitus with stage 3a chronic kidney disease, without long-term current use of insulin (HCC)- Primary Encounter for immunization Essential hypertension Unspecified essential hypertension Hypertensive chronic kidney disease with stage 1 through stage 4 chronic kidney disease, or unspecified chronic kidney disease Stage 3a chronic kidney disease ([facility]-HCC) Mixed hyperlipidemia Mixed hyperlipidemia documented in this encounter [facility] HealthcareEvaluation note* Diagnosis Type 2 diabetes mellitus without complication, without long-term current use of insulin (HCC)- Primary Seasonal allergic rhinitis due to pollen [place] albicans infection Obstructive sleep apnea syndrome Obstructive sleep apnea (adult) (pediatric) Essential hypertension Unspecified essential hypertension Stage 3a chronic kidney disease ([facility]-HCC) Acquired hypothyroidism Unspecified hypothyroidism Encounter for immunization- Primary Type 2 diabetes mellitus without complication, without long-term current use of insulin (HCC) Obstructive sleep apnea syndrome Obstructive sleep apnea (adult) (pediatric) Essential hypertension Unspecified essential hypertension Type 2 diabetes mellitus with stage 2 chronic kidney disease, without long-term current use of insulin (HCC) Mixed hyperlipidemia Vaginal irritation Pruritus of genital organs Wellness examination- Primary Type 2 diabetes mellitus with diabetic polyneuropathy, without long-term current use of insulin (HCC) Obstructive sleep apnea syndrome Obstructive sleep apnea (adult) (pediatric) Essential hypertension Unspecified essential hypertension Stage 3a chronic kidney disease (CMS-HCC) Urgency incontinence Urge incontinence Acquired hypothyroidism Unspecified hypothyroidism Type 2 diabetes mellitus with stage 3a chronic kidney disease, without long-term current use of insulin (HCC) Mixed hyperlipidemia Type 2 diabetes mellitus with diabetic polyneuropathy, without long-term current use of insulin (HCC)- Primary Urinary frequency Obstructive sleep apnea syndrome Obstructive sleep apnea (adult) (pediatric) Essential hypertension Unspecified essential hypertension LARSON (nonalcoholic steatohepatitis) Other chronic nonalcoholic liver disease Hypertensive chronic kidney disease with stage 1 through stage 4 chronic kidney disease, or unspecified chronic kidney disease Stage 3a chronic kidney disease (CMS-HCC) Acquired hypothyroidism Unspecified hypothyroidism Mixed hyperlipidemia Anxiety Anxiety state, unspecified Wellness examination- Primary Obstructive sleep apnea syndrome Obstructive sleep apnea (adult) (pediatric) Essential hypertension Unspecified essential hypertension Fatty liver Other chronic nonalcoholic liver disease Gastroesophageal reflux disease without esophagitis Esophageal reflux Acquired hypothyroidism Unspecified hypothyroidism Mixed hyperlipidemia Type 2 diabetes mellitus with stage 3a chronic kidney disease, without long-term current use of insulin (HCC) Type 2 diabetes mellitus with diabetic chronic kidney disease (HCC) Chronic kidney disease, stage 3a (CMS-HCC) Stage 3a chronic kidney disease ([facility]-HCC) Xerostomia- Primary Disturbance of salivary secretion Type 2 diabetes mellitus with stage 3a chronic kidney disease, without long-term current use of insulin (HCC) Chronic midline low back pain without sciatica- Primary Nasal drainage Essential hypertension Unspecified essential hypertension Stage 3a chronic kidney disease (CMS-HCC) Type 2 diabetes mellitus with stage 3a chronic kidney disease, without long-term current use of insulin (HCC)- Primary Encounter for immunization Essential hypertension Unspecified essential hypertension Hypertensive chronic kidney disease with stage 1 through stage 4 chronic kidney disease, or unspecified chronic kidney disease Stage 3a chronic kidney disease (CMS-HCC) Mixed hyperlipidemia Seborrheic keratosis- Primary Capillary angioma Nevus, non-neoplastic Melanocytic nevus of trunk Benign neoplasm of skin of trunk, except scrotum documented in this encounter [facility] HealthcareEvaluation note* Diagnosis Type 2 diabetes mellitus without complication, without long-term current use of insulin (HCC)- Primary Seasonal allergic rhinitis due to pollen [place] albicans infection Obstructive sleep apnea syndrome Obstructive sleep apnea (adult) (pediatric) Essential hypertension Unspecified essential hypertension Stage 3a chronic kidney disease ([facility]-HCC) Acquired hypothyroidism Unspecified hypothyroidism Encounter for immunization- Primary Type 2 diabetes mellitus without complication, without long-term current use of insulin (HCC) Obstructive sleep apnea syndrome Obstructive sleep apnea (adult) (pediatric) Essential hypertension Unspecified essential hypertension Type 2 diabetes mellitus with stage 2 chronic kidney disease, without long-term current use of insulin (HCC) Mixed hyperlipidemia Vaginal irritation Pruritus of genital organs Wellness examination- Primary Type 2 diabetes mellitus with diabetic polyneuropathy, without long-term current use of insulin (HCC) Obstructive sleep apnea syndrome Obstructive sleep apnea (adult) (pediatric) Essential hypertension Unspecified essential hypertension Stage 3a chronic kidney disease ([facility]-HCC) Urgency incontinence Urge incontinence Acquired hypothyroidism Unspecified hypothyroidism Type 2 diabetes mellitus with stage 3a chronic kidney disease, without long-term current use of insulin ([facility]) Mixed hyperlipidemia Type 2 diabetes mellitus with diabetic polyneuropathy, without long-term current use of insulin ([facility])- Primary Urinary frequency Obstructive sleep apnea syndrome Obstructive sleep apnea (adult) (pediatric) Essential hypertension Unspecified essential hypertension LARSON (nonalcoholic steatohepatitis) Other chronic nonalcoholic liver disease Hypertensive chronic kidney disease with stage 1 through stage 4 chronic kidney disease, or unspecified chronic kidney disease Stage 3a chronic kidney disease ([facility]-HCC) Acquired hypothyroidism Unspecified hypothyroidism Mixed hyperlipidemia Anxiety Anxiety state, unspecified Wellness examination- Primary Obstructive sleep apnea syndrome Obstructive sleep apnea (adult) (pediatric) Essential hypertension Unspecified essential hypertension Fatty liver Other chronic nonalcoholic liver disease Gastroesophageal reflux disease without esophagitis Esophageal reflux Acquired hypothyroidism Unspecified hypothyroidism Mixed hyperlipidemia Type 2 diabetes mellitus with stage 3a chronic kidney disease, without long-term current use of insulin (HCC) Type 2 diabetes mellitus with diabetic chronic kidney disease (HCC) Chronic kidney disease, stage 3a ([facility]-HCC) Stage 3a chronic kidney disease ([facility]) Xerostomia- Primary Disturbance of salivary secretion Type 2 diabetes mellitus with stage 3a chronic kidney disease, without long-term current use of insulin ([facility]) Chronic midline low back pain without sciatica- Primary Nasal drainage Essential hypertension Unspecified essential hypertension Stage 3a chronic kidney disease ([facility]) Type 2 diabetes mellitus with stage 3a chronic kidney disease, without long-term current use of insulin ([facility])- Primary Encounter for immunization Essential hypertension Unspecified essential hypertension Hypertensive chronic kidney disease with stage 1 through stage 4 chronic kidney disease, or unspecified chronic kidney disease Stage 3a chronic kidney disease (CMS-HCC) Mixed hyperlipidemia Urinary frequency- Primary documented in this encounter [facility] HealthcareHistory general [...] CATARACTS REMOVED BILATERAL Hospitalization History see above XMOS Other History general Narrative - Reported* Type [...] CATARACTS REMOVED BILATERAL Hospitalization History see above XMOS Other Hospital Discharge instructionsAmbulatory Orders* Referral to PT / OT / Speech (PT/OT/SP) Location: [facility] Work Phone: InstructionsNot on filedocumented in this encounter [facility] filedocumented in this [facility]ructionsNot on filedocumented in this encounter [facility]ructionsNot on filedocumented in this encounter [facility] SystemReason for referral (narrative)No reason for referral information [facility] Work Phone: Reason for visit Narrative* Consultation (Routine) - Authorized Specialty Diagnoses / Procedures Referred By Rasheeda t Referred To Contact Physical Therapy Diagnoses Chronic midline low back pain without sciatica Procedures MT OFFICE/OUTPATIENT [facility] Wendy Chinchilla MD [address] [place] [address] Phone: tel: fax: Morena Farr, PT [address] [address] Phone: tel: fax: Referral ID Status Reason Start Date Expiration Date Visits Requested Visits Authorized [id number] Authorized Consult and Treat 09/16/2024 03/15/2025 99 99 [facility] HealthcareReason for visit Narrative* Consultation (Routine) - Closed Specialty Diagnoses / Procedures Referred By Contac t Referred To Contact Neurology Diagnoses Memory loss Procedures MT OFFICE/OUTPATIENT [facility] 60 MINUTES Wendy Chinchilla MD [address] [facility] [place] [address] Jenni Dumont MD [address] [place] [address] Referral ID Status Reason Start Date Expiration Date V isits Requested Visits Authorized [id number] Closed Specialty Services Required 05/01/2024 10/28/2024 1 1 [facility] HealthcareReason for visit Narrative* Consultation (Routine) - Authorized Specialty Diagnoses / Procedures Referred By Contac t Referred To Contact Physical Therapy Diagnoses Chronic midline low back pain without sciatica Procedures MT OFFICE/OUTPATIENT [facility] Wendy Chinchilla MD [address] [facility] [place] [address] Phone: tel: fax: Morena Farr, PT [address] [address] Phone: tel: fax: Referral ID Status Reason Start Date Expiration Date Visits Requested Visits Authorized [id number] Authorized Consult and Treat 09/16/2024 10/07/2024 99 99 [facility] HealthcareReason for visit Narrative* Consultation (Routine) - Closed Specialty Diagnoses / Procedures Referred By Contac t Referred To Contact Physical Therapy Diagnoses Chronic midline low back pain without sciatica Procedures MT OFFICE/OUTPATIENT [facility] Wendy Chinchilla MD [address] [facility] [place] [address] Phone: tel: fax: Morena Farr, PT [address] [address] Phone: tel: fax: Referral ID Status Reason Start Date Expiration Date V isits Requested Visits Authorized [id number] Closed Consult and Treat 09/16/2024 10/07/2024 99 99 [facility] HealthcareReason for visit Narrative* Consultation (Routine) - Authorized Specialty Diagnoses / Procedures Referred By Contac t Referred To Contact Physical Therapy Diagnoses Chronic midline low back pain without sciatica Procedures PHYS/OCC THERAPY SS MT MANUAL THERAPY TQS 1/> REGIONS EACH 15 MINUTES MT THERAPEUTIC PX 1/> AREAS EACH 15 MIN EXERCISES MT THER PX 1/> AREAS EACH 15 MIN NEUROMUSC REEDUCA Wendy Chinchilla MD [address] [place] [address] Phone: tel: fax: Morena Farr, PT [address] [address] Phone: tel: fax: Referral ID Status Reason Start Date Expiration Date Visits Requested Visits Authorized [id number] Authorized Consult and Treat 10/09/2024 10/30/2024 30 30 [facility] HealthcareReason for visit Narrative* Consultation (Routine) - Authorized Specialty Diagnoses / Procedures Referred By Contac t Referred To Contact Physical Therapy Diagnoses Chronic midline low back pain without sciatica Procedures PHYS/OCC THERAPY SS MT MANUAL THERAPY TQS 1/> REGIONS EACH 15 MINUTES MT THERAPEUTIC PX 1/> AREAS EACH 15 MIN EXERCISES MT THER PX 1/> AREAS EACH 15 MIN NEUROMUSC REEDUCA Wendy Chinchilla MD [address] [place] [address] Phone: tel: fax: Morena Farr, PT [address] [address] Phone: tel: fax: Referral ID Status Reason Start Date Expiration Date Visits Requested Visits Authorized [id number] Authorized Consult and Treat 10/09/2024 10/07/2025 30 30 [facility] Chief Complaint and Reason for Visit Chief Complaint Elevated Liver Enzym es Chief Complaint n75.81 Chief Complaint n75.81 Fatty Liver Chief Complaint Admit Date RENAL 6 MONTH F/U February 05, 2025 9:50am Reason for Visit Admit Date CKD (chronic kidney disease) stage 3, GF R 30-59 ml/min February 05, 2025 9:50am Erythrocytosis February 05, 2025 9:50am Hypertensive chronic kidney disease with stage 1 through stage 4 chronic ki February 05, 2025 9:50am Hyperuricemia February 05, 2025 9:50am Microscopic hematuria February 05, 2025 9:50 am LARSON (nonalcoholic steatohepatitis) February 05, 2025 9:50am Type 2 diabetes mellitus with diabetic c hronic kidney disease February 05, 2025 9:50am Vitamin D deficiency February 05, 2025 9:50a m Chief Complaint Admit Date 1 year follow up larson/fatty liver May 08, 2025 9:17am Reason for Visit Admit Date Fatty liver May 08, 2025 9:1 7am GERD (gastroesophageal reflux disease) A ugust 2024 9:17am LARSON (nonalcoholic steatohepatitis) Augu st 2024 9:17am Chief Complaint Admit Date 1 year follow up larson/fatty liver May 08, 2025 9:17am k75.81 k76.0 May 08, 2025 10: 29am Chief Complaint Admit Date 1 year follow up larson/fatty liver May 08, 2025 9:17am k75.81 k76.0 May 08, 2025 10: 29am LARSON May 27, 2025 1: 38pm Chief Complaint Admit Date 1 year follow up larson/fatty liver May 08, 2025 9:17am k75.81 k76.0 May 08, 2025 10: 29am LARSON May 27, 2025 1: 38pm fatty liver June 22, 2025 9:02am Reason for Visit Admit Date Fatty liver May 08, 2025 9:1 7am GERD (gastroesophageal reflux disease) A ugust 2024 9:17am LARSON (nonalcoholic steatohepatitis) Augu st 2024 9:17am Fatty liver June 22, 2025 9:02am GERD (gastroesophageal reflux disease) S eptember 2024 9:02am LARSON (nonalcoholic steatohepatitis) Jun 9:02am Chief Complaint Admit Date 1 year follow up larson/fatty liver May 08, 2025 9:17am k75.81 k76.0 May 08, 2025 10: 29am LARSON May 27, 2025 1: 38pm fatty liver June 22, 2025 9:02am neck pain July 15, 2025 9: 48am Reason for Visit Admit Date Fatty liver May 08, 2025 9:1 7am GERD (gastroesophageal reflux disease) A ugust 2024 9:17am LARSON (nonalcoholic steatohepatitis) Mayu 2024 9:17am Fatty liver June 22, 2025 9:02am GERD (gastroesophageal reflux disease) S epteer 2024 9:02am LARSON (nonalcoholic steatohepatitis) Jun 9:02am Cervical disc disorder at C5-C6 level wi th radiculopathy July 15, 2025 9:48am History of fusion of cervical spine Octo 2024 9:48am Occipital neuralgia of right side r 2024 9:48am Chief Complaint Admit Date 1 year follow up larson/fatty liver May 08, 2025 9:17am k75.81 k76.0 May 08, 2025 10: 29am LARSON May 27, 2025 1: 38pm fatty liver June 22, 2025 9:02am neck pain July 15, 2025 9: 48am M54.50 July 20, 2025 9 :19am Advance Directives No Advanced Directives Records Found Advance Directive Response Recorded Date/ Time Advance Directives No August 10:18am Advance Directive Response Recorded Date/ Time Advance Directives No August 11:18am Date Activated Date Inactivated Comments 07/23/2018 12:07 PM 07/24/2018 7:59 PM Date Activated Date Inactivated Comments 07/23/2018 12:07 PM 07/24/2018 7:59 PM Documents on File Type Date Recorded 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 02/19/2025 2:44 PM [place] POWER OF [employer] Summary Purpose Family History No Family History Records Found Relationship Condition Age at Onset Recorded Date/T marcos brother Malignant neoplasm Unknown Family history of emphysema Unknown father Diabetes mellitus Unknown Family history of mental disorder Unknown Unknown family member Family history of other condition Unknow n Not Specified Hypertension Unknown Heart disease Unknown Malignant neoplasm Unknown Diabetes mellitus Unknown Relationship Condition Age at Onset Recorded Date/T marcos brother Malignant neoplasm Unknown Family history of emphysema Unknown father Diabetes mellitus Unknown Family history of mental disorder Unknown Unknown family member Family history of other condition Unknow n mother Hypertension Unknown Heart disease Unknown Malignant neoplasm Unknown Diabetes mellitus Unknown Reason for Referral Specialty Diagnoses / Procedures Referred By Contac t Referred To Contact Cardiology Diagnoses Portal venous hypertension (CMS/HCC) Procedures Echocardiogram 2D complete Wendy Chinchilla MD [address] [place] [address] Referral ID Status Reason Start Date Expiration Date Visits Requested Visits Authorized [id number] Pending Review Perform Procedure 07/03/2024 12/30/2024 1 1 Specialty Diagnoses / Procedures Referred By Contac t Referred To Contact Ent - Otolaryngology Diagnoses Oral lesion Procedures CONSULT TO ENT OFFICE/OUTPATIENT [facility] 60 MINUTES Elicia Cross, COLOR LABORATORY TECHNICIAN.CIRCUIT JUDGE [address] [place] [address] Referral ID Status Reason Start Date Expiration Date V isits Requested Visits Authorized [id number] Closed PCP Requested Referral 10/11/2023 10/10/2024 1 1 Specialty Diagnoses / Procedures [facility] Referred To Contact Diagnoses Other specified hearing loss, unspecified ear Procedures HEARING TEST/AUDIOGRAM COMPRE AUDIOMETRY THRESHOLD EVAL SP RECOGNIJ Elicia Cross, COLOR LABORATORY TECHNICIAN.CIRCUIT JUDGE [address] [place] [address] [facility] [address] [place] [address] Referral ID Status Reason Start Date Expiration Date Visits Requested Visits Authorized [id number] Authorized Auto-Generat ed Referral 06/14/2023 06/14/2024 1 1 Additional Source Comments REASON FOR VISIT (unrecogniz ed section and content) Specialty Diagnoses / Procedures Referred By Contac t Referred To Contact Diagnoses Other specified hearing loss, unspecified ear Procedures HEARING TEST/AUDIOGRAM COMPRE AUDIOMETRY THRESHOLD EVAL SP RECOGNIJ Elicia Cross, COLOR LABORATORY TECHNICIAN.CIRCUIT JUDGE [address] [place] [address] [facility] [address] [place] [address] Referral ID Status Reason Start Date Expiration Date V isits Requested Visits Authorized [id number] Closed Auto-Generate d Referral 06/14/2023 06/14/2024 1 1 Reason Comments Hearing Loss Specialty Diagnoses / Procedures Referred By Contac t Referred To Contact Physical Therapy Diagnoses DDD (degenerative disc disease), lumbar Procedures MT OFFICE/OUTPATIENT [facility] MDM 60 MINUTES Eliel Higgins, DO [address] [place] [address] Morena Farr, PT [address] [place] [address] Referral ID Status Reason Start Date Expiration Date Visits Requested Visits Authorized [id number] Authorized Consult and Treat 10/16/2023 04/13/2024 99 99 Reason Onset Date Comments Med Refill 11/19/2023 Reason Comments Appointment Reason Comments Consult Specialty Diagnoses / Procedures Referred By Contac t Referred To Contact Ent - Otolaryngology Diagnoses Oral lesion Procedures CONSULT TO ENT OFFICE/OUTPATIENT [facility] MDM 60 MINUTES Elicia Cross, COLOR LABORATORY TECHNICIAN.CIRCUIT JUDGE [address] [place] [address] Referral ID Status Reason Start Date Expiration Date V isits Requested Visits Authorized [id number] Closed PCP Requested Referral 10/11/2023 10/10/2024 1 1 Reason Comments Med Refill Reason Comments Skin Check Reason Onset Date Comments Med Refill 08/15/2024 Reason Onset Date Comments PT Initial Eval 09/16/2024 Reason Comments Follow-up DM follow up. Also m id and lower back pain over the past 6 months with right leg pain. Patient would like MRI. Reason Comments Diabetes Reason Onset Date Comments CX PT tomorrow 10/13/2024 Reason Comments URI Reason Onset Date Comments Med Refill 10/27/2024 Reason Comments Pain Reason Comments DM Foot Care Established pt prese nts today for DM foot check. Pt also relates numbness with feet, and states feels weird in most shoes. PCP: Dr. Chinchilla LV 09/16/24, A1C: 6.7 (09/16/24), BS: 136 Reason Comments Gynecologic Exam Medicare off year. A ccompanied by , Neptali.LMP: MIGUELITO BSO 1994 HRT: None Last pap 08-21-23 neg. Last mammogram 10-28-24 [facility]. Denies breast, urinary, or bowel concerns. abdominal pain Reports ongoing, but intermittent abdominal pain and discomfort- questions scar tissue. Multiple CT scans and ultrasound were normal. Reminds her of menstrual cramps, sometimes lasts days at a time. One CT scan did mention stool build up- planning EGD, but had to have sleep study- has not heard back to schedule. Reason Onset Date Comments Med Refill 12/31/2024 Reason Comments GI Problem Patient presenting t o discuss Colonoscopy and EGD. Patient states she brought reports from multiple Drs. States her main concern is from her sleep study, was informed due to severe sleep apnea, previous GI would not perform procedures on her. Mother had passed due to cancer traveling to esophagus. Mother and Brother had colon cancer. Claims pain LRQ under her rib, radiated to her lower back. PCP ordered lab work for pancreas, was elevated. Stage 3 renal disease. Specialty Diagnoses / Procedures Referred By Contac t Referred To Contact Gastroenterology Diagnoses Family history of colon cancer Portal venous hypertension ([facility]-HCC) Wendy Chinchilla MD [address] [place] [address] Phone: tel: fax: Cristine Win MD [address] [facility] [place] [address] Phone: tel: fax: Referral ID Status Reason Start Date Expiration Date Visits Requested Visits Authorized [id number] Pending Review Specialty Services Required 12/17/2024 12/17/2025 1 1 Reason Onset Date Comments Med Refill 01/27/2025 Reason Comments Toe Pain Established pt prese nts today with pain BL hallux, left foot is worse. Ongoing for about a month. Pt states painful underneath nail. PCP: Dr. Chinchilla LV 12/16/24, A1C: 7.2, BS: Reason Comments Pain Reason Onset Date Comments Questions 06/02/2025 Reason Comments ER Follow-up [facility] Reason Comments Diabetes Needs flu shot and m icroalbumin Reason Onset Date Comments Had sewing needle broke off in her finger can we get it out 06/29/2025 Care Teams (unrecognized sec tion and content) Team Status: Active Member Role Status Dates NON STAFF Primary Care Provider Active Team Status: Inactive Member Role Status Dates NON STAFF Primary Care Provider Active Start: May 08, 2025 End: May 08, 2025 Mt Hernandez APRN Attending Provider Active Start: May 08, 2025 End: May 08, 2025 Team Status: Active Member Role Status Dates Wendy Chinchilla MD Primary Care Provider Active Start: January 28, 2025 Julien Ruff MD Attending Provider Active Start : January 28, 2025 Team Status: Inactive Member Role Status Dates Julien Ruff MD Attending Provider Active Start : February 05, 2025 End: February 05, 2025 NON STAFF Primary Care Provider Active Start: February 05, 2025 End: February 05, 2025 Team Status: Inactive Member Role Status Dates Wendy Chinchilla MD Primary Care Provider Active Jignesh Sargent MD Attending Provider Active Team Status: Active Member Role Status Dates Wendy Chinchilla MD Primary Care Provider Active Hand Frame Surgical Elastic Knitter Relationship Specialty Start Date End Date Wendy Chinchilla MD [address] [place] [address] PCP - Devoted 10/08/22 Wendy Chinchilla MD [address] [place] [address] PCP - General Family Medicine 02/23/23 [employer] Surgical Elastic Knitter Relationship Specialty Start Date End Date Wendy Chinchilla MD [address] [place] [address] PCP - [facility]oted 10/08/22 Wendy Chinchilla MD [address] [place] [address] PCP - General Family Medicine 02/23/23 [employer] Frame Surgical Elastic Knitter Relationship Specialty Start Date End Date Wendy Chinchilla MD [address] [place] [address] PCP - [facility]oted 10/08/22 Wendy Chinchilla MD [address] [place] [address] PCP - General Family Medicine 02/23/23 Hand Frame Surgical Elastic Knitter Relationship Specialty Start Date End Date Wendy Chinchilla MD [address] [place] [address] PCP - [facility]oted 10/08/22 Wendy Chinchilla MD [address] [place] [address] PCP - General Family Medicine 02/23/23 Hand Frame Surgical Elastic Knitter Relationship Specialty Start Date End Date Wendy Chinchilla MD [address] [place] [address] PCP - Devoted 10/08/22 Wendy Chinchilla MD [address] [place] [address] PCP - General Family Medicine 02/23/23 Team [...] January 03, 2024 End: January 03, 2024 Hand Frame Surgical Elastic Knitter Relationship Specialty Start Date End Date Wendy Chinchilla MD [address] [place] [address] PCP - Devoted 10/08/22 Wendy Chinchilla MD [address] [place] [address] PCP - General Family Medicine 02/23/23 [employer] Surgical Elastic Knitter Relationship Specialty Start Date End Date Wendy Chinchilla MD [address] [place] [address] PCP - Devoted 10/08/22 Wendy Chinchilla MD [address] [place] [address] PCP - General Family Medicine 02/23/23 [employer] Frame Surgical Elastic Knitter Relationship Specialty Start Date End Date Wendy Chinchilla MD [address] [place] [address] PCP - Devoted 10/08/22 Wendy Chinchilla MD [address] [place] [address] PCP - General Family Medicine 02/23/23 [employer] Frame Surgical Elastic Knitter Relationship Specialty Start Date End Date Wendy Chinchilla MD [address] [place] [address] PCP - Devoted 10/08/22 Wendy Chinchilla MD [address] [place] [address] PCP - General Family Medicine 02/23/23 Hand [employer] El[employer] Knitter Relationship Specialty Start Date End Date Wendy Chinchilla MD [address] [place] [address] PCP - Devoted 10/08/22 Wendy Chinchilla MD [address] [place] [address] PCP - General Family Medicine 02/23/23 Hand Frame Surgical Elastic Knitter Relationship Specialty Start Date End Date Wendy Chinchilla MD [address] [place] [address] PCP - Devoted 10/08/22 Wendy Chinchilla MD [address] [place] [address] PCP - General Family Medicine 02/23/23 Hand Frame Surgical Elastic Knitter Relationship Specialty Start Date End Date Wendy Chinchilla MD [address] [place] [address] PCP - Devoted 10/08/22 Wendy Chinchilla MD [address] [place] [address] PCP - General Family Medicine 02/23/23 Hand Frame Surgical Elastic Knitter Relationship Specialty Start Date End Date Wendy Chinchilla MD [address] [place] [address] PCP - Devoted 10/08/22 Wendy Chinchilla MD [address] [place] [address] PCP - General Family Medicine 02/23/23 Hand Frame Surgical Elastic Knitter Relationship Specialty Start Date End Date Wendy Chinchilla MD [address] [place] [address] PCP - Devoted 10/08/22 Wendy Chinchilla MD [address] [place] [address] PCP - General Family Medicine 02/23/23 Hand Frame Surgical Elastic Knitter Relationship Specialty Start Date End Date Wendy Chinchilla MD [address] [place] [address] PCP - Devoted 10/08/22 Wendy Chinchilla MD [address] [place] [address] PCP - General Family Medicine 02/23/23 Hand Frame Surgical Elastic Knitter Relationship Specialty Start Date End Date Wendy Chinchilla MD [address] [place] [address] PCP - Devoted 10/08/22 Wendy Chinchilla MD [address] [place] [address] PCP - General Family Medicine 02/23/23 Hand Frame Surgical Elastic Knitter Relationship Specialty Start Date End Date Wendy Chinchilla MD [address] [place] [address] PCP - Devoted 10/08/22 Wendy Chinchilla MD [address] [place] [address] PCP - General Family Medicine 02/23/23 Hand Frame Surgical Elastic Knitter Relationship Specialty Start Date End Date Wendy Chinchilla MD [address] [place] [address] PCP - Devoted 10/08/22 Wendy Chinchilla MD [address] [place] [address] PCP - General Family Medicine 02/23/23 Hand Frame Surgical Elastic Knitter Relationship Specialty Start Date End Date Wendy Chinchilla MD [address] [place] [address] PCP - Devoted 10/08/22 Wendy Chinchilla MD [address] [place] [address] PCP - General Family Medicine 02/23/23 Hand Frame Surgical Elastic Knitter Relationship Specialty Start Date End Date Wendy Chinchilla MD [address] [place] [address] PCP - Devoted 10/08/22 Wendy Chinchilla MD [address] [place] [address] PCP - General Family Medicine 02/23/23 Hand Frame Surgical Elastic Knitter Relationship Specialty Start Date End Date Wendy Chinchilla MD [address] [place] [address] PCP - Devoted 10/08/22 Wendy Chinchilla MD [address] [place] [address] PCP - General Family Medicine 02/23/23 Hand Frame Surgical Elastic Knitter Relationship Specialty Start Date End Date Wendy Chinchilla MD [address] [place] [address] PCP - Devoted 10/08/22 Wendy Chinchilla MD [address] [place] [address] PCP - General Family Medicine 02/23/23 Hand Frame Surgical Elastic Knitter Relationship Specialty Start Date End Date Wendy Chinchilla MD [address] [place] [address] PCP - Devoted 10/08/22 Wendy Chinchilla MD [address] [place] [address] PCP - General Family Medicine 02/23/23 Hand Frame Surgical Elastic Knitter Relationship Specialty Start Date End Date Wendy Chinchilla MD [address] [place] [address] PCP - Devoted 10/08/22 Wendy Chinchilla MD [address] [place] [address] PCP - General Family Medicine 02/23/23 Hand Frame Surgical Elastic Knitter Relationship Specialty Start Date End Date Wnedy Chinchilla MD [address] [place] [address] PCP - General Family Medicine 02/23/23 Hand Frame Surgical Elastic Knitter Relationship Specialty Start Date End Date Wendy Chinchilla MD [address] [place] [address] PCP - General Family Medicine 02/23/23 Hand Frame Surgical Elastic Knitter Relationship Specialty Start Date End Date Wendy Chinchilla MD [address] [place] [address] PCP - General Family Medicine 02/23/23 Hand Frame Surgical Elastic Knitter Relationship Specialty Start Date End Date Wendy Chinchilla MD [address] [place] [address] PCP - General Family Medicine 02/23/23 Hand Frame Surgical Elastic Knitter Relationship Specialty Start Date End Date Wendy Chinchilla MD [address] [place] [address] PCP - General Family Medicine 02/23/23 Hand Frame Surgical Elastic Knitter Relationship Specialty Start Date End Date Wendy Chinchilla MD [address] [place] [address] PCP - General Family Medicine 02/23/23 Hand Frame Surgical Elastic Knitter Relationship Specialty Start Date End Date Wendy Chinchilla MD [address] [place] [address] PCP - General Family Medicine 02/23/23 Hand Frame Surgical Elastic Knitter Relationship Specialty Start Date End Date Wendy Chinchilla MD [address] [place] [address] PCP - General Family Medicine 02/23/23 Hand Frame Surgical Elastic Knitter Relationship Specialty Start Date End Date Wendy Chinchilla MD [address] [place] [address] PCP - General Family Medicine 02/23/23 Hand Frame Surgical Elastic Knitter Relationship Specialty Start Date End Date Wendy Chinchilla MD [address] [place] [address] PCP - General Family Medicine 02/23/23 Hand Frame Surgical Elastic Knitter Relationship Specialty Start Date End Date Wendy Chinchilla MD [address] [place] [address] PCP - General Family Medicine 02/23/23 Hand Frame Surgical Elastic Knitter Relationship Specialty Start Date End Date Wendy Chinchilla MD [address] [place] [address] PCP - General Family Medicine 02/23/23 Hand Frame Surgical Elastic Knitter Relationship Specialty Start Date End Date Wendy Chinchilla MD [address] [place] [address] PCP - General Family Medicine 02/23/23 Hand Frame Surgical Elastic Knitter Relationship Specialty Start Date End Date Wendy Chinchilla MD [address] [place] [address] PCP - General Family Medicine 02/23/23 Hand Frame Surgical Elastic Knitter Relationship Specialty Start Date End Date Wendy Chinchilla MD [address] [place] [address] PCP - General Family Medicine 02/23/23 Hand Frame Surgical Elastic Knitter Relationship Specialty Start Date End Date Wendy Chinchilla MD [address] [place] [address] PCP - General Family Medicine 02/23/23 Hand Frame Surgical Elastic Knitter Relationship Specialty Start Date End Date Wendy Chinchilla MD [address] [place] [address] PCP - General Family Medicine 02/23/23 Hand Frame Surgical Elastic Knitter Relationship Specialty Start Date End Date Wendy Chinchilla MD [address] [place] [address] PCP - General Family Medicine 02/23/23 Hand Frame Surgical Elastic Knitter Relationship Specialty Start Date End Date Wendy Chinchilla MD [address] [place] [address] PCP - General Family Medicine 02/23/23 Hand Frame Surgical Elastic Knitter Relationship Specialty Start Date End Date Wendy Chinchilla MD [address] [place] [address] PCP - General Family Medicine 02/23/23 Hand Frame Surgical Elastic Knitter Relationship Specialty Start Date End Date Wendy Chinchilla MD [address] [place] [address] PCP - General Family Medicine 02/23/23 Hand Frame Surgical Elastic Knitter Relationship Specialty Start Date End Date Wendy Chinchilla MD [address] [place] [address] PCP - General Family Medicine 02/23/23 Hand Frame Surgical Elastic Knitter Relationship Specialty Start Date End Date Wendy Chinchilla MD [address] [place] [address] PCP - General Family Medicine 02/23/23 Hand Frame Surgical Elastic Knitter Relationship Specialty Start Date End Date Wendy Chinchilla MD [address] [place] [address] PCP - General Family Medicine 02/23/23 Hand Frame Surgical Elastic Knitter Relationship Specialty Start Date End Date Wendy Chinchilla MD [address] [place] [address] PCP - General Family Medicine 02/23/23 Hand Frame Surgical Elastic Knitter Relationship Specialty Start Date End Date Wendy Chinchilla MD [address] [place] [address] PCP - General Family Medicine 02/23/23 Hand Frame Surgical Elastic Knitter Relationship Specialty Start Date End Date Wendy Chinchilla MD [address] [place] [address] PCP - General Family Medicine 02/23/23 Hand Frame Surgical Elastic Knitter Relationship Specialty Start Date End Date Wendy Chinchilla MD [address] [place] [address] PCP - General Family Medicine 02/23/23 Hand Frame Surgical Elastic Knitter Relationship Specialty Start Date End Date Wendy Chinchilla MD [address] [place] [address] PCP - General Family Medicine 02/23/23 Hand Frame Surgical Elastic Knitter Relationship Specialty Start Date End Date Wendy Chinchilla MD [address] [place] [address] PCP - General Family Medicine 09/12/22 Hand Frame Surgical Elastic Knitter Relationship Specialty Start Date End Date Wendy Chinchilla MD [address] [place] [address] PCP - General Family Medicine 09/12/22 Hand Frame Surgical Elastic Knitter Relationship Specialty Start Date End Date Wendy Chinchilla MD [address] [place] [address] PCP - General Family Medicine 02/23/23 Hand Frame Surgical Elastic Knitter Relationship Specialty Start Date End Date Wendy Chinchilla MD [address] [place] [address] PCP - General Family Medicine 09/12/22 Hand Frame Surgical Elastic Knitter Relationship Specialty Start Date End Date Wendy Chinchilla MD [address] [place] [address] PCP - General Family Medicine 02/23/23 Hand Frame Surgical Elastic Knitter Relationship Specialty Start Date End Date Wendy Chinchilla MD [address] [place] [address] PCP - General Family Medicine 02/23/23 Hand Frame Surgical Elastic Knitter Relationship Specialty Start Date End Date Wendy Chinchilla MD [address] [place] [address] PCP - General Family Medicine 09/12/22 Hand Frame Surgical Elastic Knitter Relationship Specialty Start Date End Date Wendy Chinchilla MD [address] [place] [address] PCP - General Family Medicine 02/23/23 Hand Frame Surgical Elastic Knitter Relationship Specialty Start Date End Date Wendy Chinchilla MD [address] [place] [address] PCP - General Family Medicine 02/23/23 Hand Frame Surgical Elastic Knitter Relationship Specialty Start Date End Date Wendy Chinchilla MD [address] [place] [address] PCP - General Family Medicine 02/23/23 Hand Frame Surgical Elastic Knitter Relationship Specialty Start Date End Date Wendy Chinchilla MD [address] [place] [address] PCP - General Family Medicine 02/23/23 Hand Frame Surgical Elastic Knitter Relationship Specialty Start Date End Date Wendy Chinchilla MD [address] [place] [address] PCP - General Family Medicine 02/23/23 Team Status: Inactive Member Role Status Dates Temporary Fibroscan Attending Provider Active St art: May 27, 2025 End: May 27, 2025 Mt Hernandez APRN Referring Provider Active Start: May 27, 2025 End: May 27, 2025 Wendy Chinchilla MD Primary Care Provider Active Start: May End: May 27, 2025 Hand Frame Surgical Elastic Knitter Relationship Specialty Start Date End Date Wendy Chinchilla MD [address] [place] [address] PCP - General Family Medicine 02/23/23 Hand Frame Surgical Elastic Knitter Relationship Specialty Start Date End Date Wendy Chinchilla MD [address] [place] [address] PCP - General Family Medicine 02/23/23 Hand Frame Surgical Elastic Knitter Relationship Specialty Start Date End Date Wendy Chinchilla MD [address] [place] [address] PCP - General Family Medicine 02/23/23 Hand Frame Surgical Elastic Knitter Relationship Specialty Start Date End Date Wendy Chinchilla MD [address] [place] [address] PCP - General Family Medicine 02/23/23 Hand Frame Surgical Elastic Knitter Relationship Specialty Start Date End Date Wendy Chinchilla MD [address] [place] [address] PCP - General Family Medicine 02/23/23 Hand Frame Surgical Elastic Knitter Relationship Specialty Start Date End Date Wendy Chinchilla MD [address] [place] [address] PCP - General Family Medicine 02/23/23 Team Status: Active Member Role Status Dates Temporary Fibroscan Other Provider Active Start: May 27, 2025 Mt Hernandez APRN Referring Provider Active Start: May 27, 2025 Wendy Chinchilla MD Primary Care Provider Active Start: May Jignesh Sargent MD Attending Provider Active S tart: May 27, 2025 Team Status: Inactive Member Role Status Dates Mt Hernandez APRN Attending Provider Active Start: June 22, 2025 End: June 22, 2025 Wendy Chinchilla MD Primary Care Provider Active Start: June [id number] End: June 22, 2025 Hand Frame Surgical Elastic Knitter Relationship Specialty Start Date End Date Wendy Chinchilla MD [address] [place] [address] PCP - General Family Medicine 02/23/23 Team Status: Inactive Member Role Status Dates Wendy Chinchilla MD Primary Care Provider Active Start: July End: July 15, 2025 Michele Armijo DO Attending Provider Active S tart: July 15, 2025 End: July 15, 2025 Team Status: Inactive Member Role Status Dates Wendy Chinchilla MD Primary Care Provider Active Start: July End: July 20, 2025 Michele Armijo DO Attending Provider Active S tart: July 20, 2025 End: July 20, 2025 Hand Frame Surgical Elastic Knitter Relationship Specialty Start Date End Date Wendy Chinchilla MD [address] [place] [address] PCP - General Family Medicine 02/23/23 Hand Frame Surgical Elastic Knitter Relationship Specialty Start Date End Date Wendy Chinchilla MD [address] [place] [address] PCP - General Family Medicine 02/23/23 Hand Frame Surgical Elastic Knitter Relationship Specialty Start Date End Date Wendy Chinchilla MD [address] [facility] [place] [address] PCP - General Family Medicine 02/23/23 Goals (unrecognized section and content) Goals may be documented in a n alternate section INFORMATION SOURCE (unrecogn ized section and content) DATE CREATED AUTHOR 11/30/2022 [facility] dical Specialist DATE CREATED AUTHOR AUTHOR'S ORGANIZ ATION 02/16/2023 [facility] DATE CREATED AUTHOR AUTHOR'S ORGANIZ ATION 03/07/2024 [facility] DATE CREATED AUTHOR AUTHOR'S ORGANIZ ATION 03/06/2025 [facility] DATE CREATED AUTHOR AUTHOR'S ORGANIZ ATION 07/02/2025 [facility] DATE CREATED AUTHOR AUTHOR'S ORGANIZ ATION 07/22/2025 [facility] d[facility] Specialists EPIC DATE CREATED AUTHOR AUTHOR'S ORGANIZ ATION 07/25/2025 [facility] DATE CREATED AUTHOR AUTHOR'S ORGANIZ ATION 07/26/2025 [facility] Source Comments (unrecognize d section and content) In the event this informatio n is protected by the Federal Confidentiality of Alcohol and Drug Abuse Patient Records regulations: The Federal rules restrict any use of the information to criminally investigate or prosecute any alcohol or drug abuse patient.[facility] the event this information is protected by the Federal Confidentiality of Alcohol and Drug Abuse Patient Records regulations: The Federal rules restrict any use of the information to criminally investigate or prosecute any alcohol or drug abuse patient.[facility] the event this information is protected by the Federal Confidentiality of Alcohol and Drug Abuse Patient Records regulations: The Federal rules restrict any use of the information to criminally investigate or prosecute any alcohol or drug abuse patient.[facility] the event this information is protected by the Federal Confidentiality of Alcohol and Drug Abuse Patient Records regulations: The Federal rules restrict any use of the information to criminally investigate or prosecute any alcohol or drug abuse patient.[facility] the event this information is protected by the Federal Confidentiality of Alcohol and Drug Abuse Patient Records regulations: The Federal rules restrict any use of the information to criminally investigate or prosecute any alcohol or drug abuse patient.[facility] FOR RECORDS PERTAINING TO PATIENTS WHO ARE [...] BE BASED ON THE PRIMARY CLINICAL RECORDS. [email or web address]. provides no warranty or guarantee of the accuracy or completeness of information in this document.
[2025-07-27 10:39] LABS: Hematocrit 50.1 % (36.0-48.0); Hemoglobin 16.8 g/dL (12.0-16.0); Mean Corpuscular HGB Conc 33.5 g/dL (29.9-35.2); Mean Corpuscular Hemoglobin 29.1 pg (26.7-34.0); Mean Corpuscular Volume 86.7 fL (81.0-99.0); Platelet Count 226 10^3/uL (150-450); Red Blood Count 5.78 10^6/uL (4.20-5.40); White Blood Count 8.2 10^3/uL (4.0-11.0)
[2025-07-27 10:43] LABS: Albumin Level 4.3 g/dL (3.4-5.0); Anion Gap 11.6; Blood Urea Nitrogen 19.0 mg/dL (7.0-18.0); Calcium 9.5 mg/dL (8.5-10.1); Carbon Dioxide 28.6 mmol/L (21.0-32.0); Chloride 101 mmol/L (98-107); Estimated GFR (African America >60 (>=60 mL/min/1.73m^2); Estimated GFR (Non-African Ame 57 (>=60 mL/min/1.73m^2); Glucose 145 mg/dL (74-106); Magnesium 2.1 mg/dL (1.8-2.4); Potassium 4.2 mmol/L (3.5-5.1); Sodium 137 mmol/L (136-145); Uric Acid 4.9 mg/dL (2.6-6.0)
[2025-07-27 10:57] LABS: Glucose Urine UA >=1000 mg/dL (NEGATIVE)
[2025-07-27 11:21] LABS: Cast Seen? NONE SEEN #/LPF (NONE SEEN); Crystals Seen? None Seen #/HPF (None Seen)
[2025-07-27 11:40] LABS: Total Protein Urine Random <6.0 mg/dL (<=11.9)
== END 2025-07-27 09:56 | disposition home or self-care (01) ==
LOC: LAB 09:57
PROVIDERS: PCP Family Medicine; Visit Provider Internal Medicine
DX: I12.9 Hypertensive chronic kidney disease with stage 1 through stage 4 chronic kidney disease, or unspecified chronic kidney disease (principal); E11.22 Type 2 diabetes mellitus with diabetic chronic kidney disease; N18.30 Chronic kidney disease, stage 3 unspecified; K75.81 Nonalcoholic steatohepatitis (NASH); E55.9 Vitamin D deficiency, unspecified
CPT/HCPCS: 36415; 80069; 81001; 82306; 82570; 83735; 83970; 84156; 84550; 85027